=== PATIENT | female | born 1935 | race African-American/Black ===

== ENCOUNTER 2018-08-07 12:33 | Inpatient (IN) | payer OTHER ==
--- NOTE | 2018-08-07 12:42 | PDOC ---
History of Present Illness - General Chief Complaint: Pain, Acute Stated Complaint: RIGHT FOOT PAIN Time Seen by Provider: 08/07/18 12:39 History Source: Patient Exam Limitations: No Limitations - History of Present Illness Initial Comments: 08/07/18 14:16 Ms Pruett is an 83 yo F who presents to the ER due to foot pain Pt has a h/o DM and HTN with poor medication compliance The patient has been complaining of intermittent right lower extremity pain since June. She was noted to have increasing right foot pain on July 29. She was seen in an outside hospital where x-ray revealed a fracture of her great toe ??? (patient tells me she had no associated trauma) She was started on oxycodone, which she has been taking for pain. Her pain has persistently worsened. Beginning about 4 days ago, patient's pain was so significant that she was unable to bear weight on the right foot. She denies fevers, chills to me. She does admit to increased swelling of the foot. In order to treat her pain, she has been applying icy hot, with minimal relief. Patient denies trauma of any kind. She was seen today by her primary care physician in the city who told her that her foot was gangrenous. She was accompanied by her daughter to this visit, and daughter opted to bring her to this hospital here rather than have her treated at a local hospital. Patient tells me she's had no prior vascular issues in the past. She denies any chest pain, or history of atrial fibrillation. She denies abdominal pain. She denies headache. PMH: DM, HTN PSH: denies Meds: Losartan, janumet ALL: PCN Social: denies tobacco, drug use ROS: GENERAL/CONSTITUTIONAL: No: fever, chills, weakness, loss of appetite. HEAD, EYES, EARS, NOSE AND THROAT: No: change in vision, ear pain, discharge, sore throat, throat swelling. CARDIOVASCULAR: No: chest pain, lightheadedness, palpitations, syncope RESPIRATORY: No: cough, shortness of breath, wheezing, hemoptysis, stridor. GASTROINTESTINAL: No: nausea, vomiting, diarrhea, abdominal cramping, rectal bleeding, constipation. GENITOURINARY: No: dysuria, hematuria, frequency, urgency, flank pain. MUSCULOSKELETAL: Yes: FOOT PAIN No: back pain, neck pain, joint pain SKIN: No: lesions, pallor, rash or easy bruising. NEUROLOGIC: No: headache, vertigo, paresthesias, weakness ENDOCRINE: No: unexplained weight gain or loss HEMATOLOGIC/LYMPHATIC: No: anemia, easy bleeding, swelling nodes. PE: GENERAL: The patient is in no acute distress. HEAD: Normal with no signs of trauma. EYES: PERRLA, EOMI, sclera anicteric, conjunctiva clear. ENT: Ears normal, nares patent, oropharynx clear without exudates. Moist mucous membranes. NECK: Normal range of motion, supple LUNGS: Breath sounds equal, clear to auscultation bilaterally. No wheezes, and no crackles. HEART:Regular rate and rhythm, normal S1 and S2 without murmur, rub or gallop. ABDOMEN: Soft, nontender, normoactive bowel sounds. No guarding, no rebound. EXTREMITIES: Left: Normal range of motion, no edema. No clubbing or cyanosis. No erythema, or tenderness. Right: Femoral pulse 2+ bounding Popliteal pulse unable to palpate Swollen, cool lower leg and foot Dorsum of foot is Erythematous Plantar surface of foot:: Toes dusky - great toe, 4th and little toe Any palpation of this foot is exquisitely painful NEUROLOGICAL: Cranial nerves II through XII grossly intact. Normal speech. No focal neurological deficits. MUSCULOSKELETAL: no deformities SKIN: as above 08/07/18 19:04 08/07/18 21:49 08/07/18 21:52 08/08/18 19:40 Past History - Past Medical History Allergies/Adverse Reactions: Allergies Allergy/AdvReac Type Severity Reaction Status Date / Time Penicillins Allergy Verified 08/07/18 12:35 Home Medications: Ambulatory Orders Losartan Potassium [Cozaar -] 50 mg PO BID 08/07/18 Omeprazole Magnesium [Prilosec Otc] 20 mg PO DAILY 08/07/18 Oxybutynin Chloride [Oxybutynin Chloride ER] 5 mg PO DAILY 08/07/18 Sitagliptin Phos/Metformin HCl [Janumet 50-1,000 mg Tablet] 1 each PO BID COPD: No Diabetes: Yes HTN: Yes - Suicide/Smoking/Psychosocial Hx Smoking History: Never smoked Substance Use Type: None ED Treatment Course - LABORATORY CBC & Chemistry Diagram: 08/09/18 05:30 08/09/18 05:30 Medical Decision Making - Critical Care Time Total Critical Care Time (minutes): 90 Critical Care Statement: The care of this patient involved high complexity decision making to prevent further life threatening deterioration of the patient 's condition and/or to evaluate & treat vital organ system(s) failure or risk of failure. - Medical Decision Making Right limb ischemia (unclear time frame but it does not appear that this was sudden) Will do: Labs, including lactate US - eval for peripheral flow (doppler attempted, unable to hear flow) Pt BP elevated, likely due to poor medication compliance Will give Labetolol Will not hydrate (Give pt BP) Will place on network systems consultant 08/07/18 14:14 Laboratory Tests 08/07/18 08/07/18 08/07/18 13:15 13:15 13:15 WBC 6.8 Hgb 9.9 L Hct 30.7 L Plt Count 242 INR 1.25 H BUN 19 H Creatinine 0.9 Alkaline Phosphatase 48 Troponin I 08/07/18 13:15 WBC Hgb Hct Plt Count INR BUN Creatinine Alkaline Phosphatase Troponin I < 0.03 08/07/18 14:06 EKG: SR rate of 71 bpm, axis nml, intervals nml, no st elevation or depression, t waves upright US: no flow past popliteal CTA ordered CTA ordered when CT scan was up and running I was told that a CTA of the extremities can not be performed here Consult to Dr Cates Admission to hospitalist Heparin started 08/07/18 14:30 keyoniareji sent, brown stools 08/07/18 15:30 I have contacted the nursing production assembly supervisor because there are no Tele beds Pt can not get her CTA here I have requested that this patient be transported to [facility] for her CTA and wait there for a bed This is not an option unless the CTA will environmental change analyst (per ED director) I have contacted Dr Cates to see if he believes this will environmental change analyst No response This patient can not be transferred to outside facility as we have the services available in our facility 08/07/18 15:31 Laboratory Tests 08/07/18 13:06 Lactic Acid 0.8 Pt approved for ICU bed Case reviewed with ICU resident 08/07/18 19:02 Pt BP now back to >200/100 Labetolol ordered Clinical Impression: limb ischemia, initial presentation *DC/Admit/Observation/Transfer Diagnosis at time of Disposition: Lower limb ischemia - Discharge Dispostion Condition at time of disposition: Fair Decision to Admit order: Yes - Referrals - Patient Instructions - Post Discharge Activity
[2018-08-07] MEDS ORDERED: ACETAMINOPHEN 1000 MG/100 ML VIAL (NON FORMULARY) IVPB ONE (12:58)
[2018-08-07] MEDS ORDERED: LABETALOL HCL 5 MG/1 ML (100MG/20 ML VIAL) IVPUSH ONE (12:58)
[2018-08-07] MEDS ORDERED: ACETAMINOPHEN INJECTION 100 ML IVPB ONE (13:17)
[2018-08-07 13:55] LABS: INR 1.25 (0.82-1.09); PROTHROMBIN TIME (PATIENT) 13.9 SEC (10.2-13.0)
[2018-08-07 14:00] LABS: BASO % 0.2 % (0-2.0); EOS % 0.3 % (0-4.5); HEMATOCRIT 30.7 % (32.4-45.2); HEMOGLOBIN 9.9 GM/dl (10.7-15.3); LYMPH % 12.2 % (8-40); MCH 27.8 pg (25.7-33.7); MCHC 32.4 g/dl (32.0-36.0); MEAN CELL VOLUME 85.9 fl (80-96); MEAN PLT VOLUME 8.8 fl (7.5-11.1); MONO % 12.2 % (3.8-10.2); NEUT % 75.1 % (42.8-82.8); PLATELET COUNT 242 K/MM3 (134-434); RBC 3.58 M/mm3 (3.60-5.2); RDW 14.7 % (11.6-15.6); WHITE BLOOD COUNT 6.8 K/mm3 (4.0-10.8)
[2018-08-07 14:02] LABS: ALBUMIN 2.9 g/dl (3.5-5.0); ALK PHOS 48 U/L (32-92); ANION GAP 5 MMOL/L (8-16); BILIRUBIN,TOTAL 0.3 mg/dl (0.2-1.0); BLOOD UREA NITROGEN 19 mg/dl (7-18); CALCIUM 8.6 mg/dl (8.4-10.2); CHLORIDE 100 mmol/L (98-107); CO2 29 mmol/L (22-28); CREATININE 0.9 mg/dl (0.6-1.3); GLUCOSE,RANDOM 211 mg/dl (74-106); POTASSIUM 4.3 mmol/L (3.5-5.1); SGOT/AST 20 U/L (10-42); SGPT/ALT 15 U/L (10-40); SODIUM 134 mmol/L (136-145); TOT PROT 6.6 g/dl (6.4-8.3)
[2018-08-07] MEDS ORDERED: LABETALOL HCL 5 MG/1 ML (100MG/20 ML VIAL) ONE (14:10)
[2018-08-07 14:51] LABS: URINE APPEARANCE Clear; URINE BILIRUBIN 1+ (NEGATIVE); URINE COLOR Amber; URINE GLUCOSE (UA) Trace (NEGATIVE); URINE KETONE Trace (NEGATIVE); URINE LEUK ESTERASE Negative (NEGATIVE); URINE NITRITE Negative (NEGATIVE); URINE PROTEIN 1+ (NEGATIVE)
[2018-08-07] MEDS ORDERED: HEPARIN INFUSION - 25,000 UNITS/500 ML INFUS.BAG IVPB ONE (15:07)
[2018-08-07 15:40] LABS: URINE RBC 0-2 /hpf (0-3)
[2018-08-07 15:41] LABS: EPI CELLS 4+ /HPF
[2018-08-07] MEDS: HEPARIN - 25,000 UNIT in SODIUM CHLORIDE 495 ML IV SCH (15:41)
[2018-08-07] MEDS ORDERED: LABETALOL HCL 100 MG TABLET (FP) PO ONE (18:50)
[2018-08-07] MEDS ORDERED: LABETALOL HCL 200 MG TABLET (FP) ONE (18:59)
[2018-08-07 20:55] LABS: HEMATOCRIT 29.3 % (32.4-45.2); HEMOGLOBIN 9.9 GM/dL (10.7-15.3); MCH 28.5 pg (25.7-33.7); MCHC 33.8 g/dl (32.0-36.0); MEAN CELL VOLUME 84.2 fl (80-96); MEAN PLT VOLUME 8.4 fl (7.5-11.1); PLATELET COUNT 247 K/MM3 (134-434); RBC 3.48 M/mm3 (3.60-5.2); RDW 15.6 % (11.6-15.6)
[2018-08-07] MEDS ORDERED: LOSARTAN POTASSIUM 50 MG TABLET (FP) PO ONE (21:21)
[2018-08-07] MEDS ORDERED: hydrALAZINE HCL 10 MG TABLET PO ONE (21:34)
[2018-08-07] MEDS ORDERED: HEPARIN NA (PORCINE) 5,000 UNITS/ML 1ML VIAL IVPUSH PRN ×2 (21:48)
--- NOTE | 2018-08-07 21:51 | PN ---
Teaching Attending Note Name of Resident: Giana Champion ATTENDING PHYSICIAN STATEMENT I saw and evaluated the patient. I reviewed the resident's note and discussed the case with the resident. I agree with the resident's findings and plan as documented. SUBJECTIVE: Patient is an 83 [place] old woman with PMH of NIDDM, HTN and penicillin allergy who presented to [place] ER due to right foot pain. Transferred for CTA and vascular surgery evaluation due to suspicion of ichemic limb. The patient has been complaining of intermittent right lower extremity pain since June. Pain is worse with ambulation. Patient and family believe her symptoms started after her [employer] cut her toe nails "too short". She was started on oxycodone which she has been taking for pain. Her pain is persistently worsened. Beginning about 4 days ago, patient's pain was so significant that she was unable to bear weight on the right foot. She does admit to increased swelling of the right foot and has been applying icy hot, with minimal relief. OBJECTIVE: Alert Vital Signs Period Temp Pulse Resp BP Sys/Reyes Pulse Ox Last 24 Hr 98.3 F-99.3 F 60-79 17-19 122-231/54-91 96-100 HEENT: No Jaundice, eye redness or discharge, PERRLA, EOMI. Normocephalic, atraumatic. External ears are normal and hearing is grossly intact. No nasal discharge. Neck: Supple, nontender. No palpable adenopathy or thyromegaly. No JVD Chest: Good effort. Clear to auscultation and percussion. Heart: Regular. No S3, rub or murmur Abdomen: Not distended, soft, nontender and no HSM. No rebound or guarding. Normoactive bowel sounds. Ext: Right foot edema with diminished pulses; cool to touch, tender. Discolored dusky 1st and 2nd toes; dystrophic toe nails; able to wiggle toes. Skin: Warm and dry. No petechiae, rash or ecchymosis. Neuro: Alert. Oriented x3. CN 2-12 grossly intact. Sensation grossly intact in all four extremities and DTR are symmetric. Current Medications Generic Name Dose Route Start Last Admin Trade Name Freq PRN Reason Stop Dose Admin Heparin Sodium (Porcine) 1,000 unit 08/07/18 21:48 Heparin - IVPUSH PRN PRN Heparin Heparin Sodium (Porcine) 5,000 unit 08/07/18 21:48 Heparin - IVPUSH PRN PRN Heparin Heparin Sodium (Porcine) 25, 500 mls @ 20 mls/hr 08/07/18 14:15 08/07/18 15: 41 000 unit/ Sodium Chloride IV 1,000 unit/hr TITR FLYNN 20 mls/hr Administration Protocol 1,000 UNIT/HR Home Medications Medication Instructions Recorded Losartan Potassium [Cozaar -] 50 mg PO BID 08/07/18 Omeprazole Magnesium [Prilosec Otc] 20 mg PO DAILY 08/07/18 Oxybutynin Chloride [Oxybutynin 5 mg PO DAILY 08/07/18 Chloride ER] Sitagliptin Phos/Metformin HCl 1 each PO BID 08/07/18 [Janumet 50-1,000 mg Tablet] Abnormal Lab Results 08/07/18 08/07/18 08/07/18 13:15 13:15 13:15 RBC 3.58 L Hgb 9.9 L Hct 30.7 L Monocytes % 12.2 H PT with INR 13.9 H INR 1.25 H PTT (Actin FS) Sodium 134 L Carbon Dioxide 29 H Anion Gap 5 L BUN 19 H Random Glucose 211 H Calcium Albumin 2.9 L Urine Protein Urine Bilirubin Urine Urobilinogen 08/07/18 08/07/18 08/07/18 13:15 14:06 20:00 RBC 3.48 L Hgb 9.9 L Hct 29.3 L Monocytes % PT with INR INR PTT (Actin FS) 22.4 L Sodium Carbon Dioxide Anion Gap BUN Random Glucose Calcium Albumin Urine Protein 1+ H Urine Bilirubin 1+ H Urine Urobilinogen 2.0 H 08/07/18 08/07/18 20:00 20:00 RBC Hgb Hct Monocytes % PT with INR INR PTT (Actin FS) 40.5 H Sodium Carbon Dioxide Anion Gap 7 L BUN Random Glucose 176 H Calcium 8.2 L Albumin 2.6 L Urine Protein Urine Bilirubin Urine Urobilinogen ASSESSMENT AND PLAN: 1. Ischemic right leg - Both ultrasound and physical examination suggest impaired blood flow. Patient has been started on IV heparin drip pending CTA and Vascular surgery is being consulted. Oral antihypertensive medications have been restarted to improve BP control. 2. Hypoalbuminemia - Possibly due to combined effects of proteinuria, malnutrition and inflammation associated with comorbid chronic conditions. May have early diabetic nephropathy. Will ensure adequate dietary protein intake and also consult maintenance person. 3. DM - Will hold her home diabetes drugs and implement sliding scale insulin regimen. Check HbA1c. Provide comprehensive diabetes care with patient teaching and counseling about the importance of euglycemia, eye care and foot care. 4. Anemia - Etiology unclear. Needs basic anemia work up including serial stool guaiacs, reticulocyte count and iron studies. 5. DVT prophylaxis - On IV Heparin drip. 6. Advance directives - Full code
[2018-08-07 22:07] LABS: ALBUMIN 2.6 g/dl (3.4-5.0); ALK PHOS 54 U/L (45-117); ANION GAP 7 MMOL/L (8-16); BILIRUBIN,TOTAL 0.2 mg/dL (0.2-1); BLOOD UREA NITROGEN 18 mg/dL (7-18); CALCIUM 8.2 mg/dL (8.5-10.1); CHLORIDE 100 mmol/L (98-107); CO2 31 mmol/L (21-32); CREATININE 0.8 mg/dL (0.55-1.3); GLUCOSE,RANDOM 176 mg/dL (74-106); POTASSIUM 3.9 mmol/L (3.5-5.1); SGOT/AST 17 U/L (15-37); SGPT/ALT 17 U/L (13-61); SODIUM 139 mmol/L (136-145); TOT PROT 6.5 g/dl (6.4-8.2)
[2018-08-07] MEDS ORDERED: hydrALAZINE HCL 20 MG/ML VIAL IVPUSH ONE (23:26)
[2018-08-07] MEDS ORDERED: amLODIPine BESYLATE 2.5 MG TABLET (FP) PO ONE (23:27)
--- NOTE | 2018-08-07 23:28 | HP ---
CHIEF COMPLAINT: r foot pain PCP: Dr. Alamo, [facility] HISTORY OF PRESENT ILLNESS: Patient is a 83 y/o female with a history of DM and HTN who presents for right foot pain. She described the pain as a burning, its starts in her foot and moves up to her knee. She rates it as 8/10. It is worse with touch and when she is walking. She has not found that anything makes it better, she has been trying to use icy hot but with no relief. The pain has been worsening for the last three weeks. Patient denies any recent trauma On july 23 patient followed up with her manager market development who cut her nails. Patient believes one of the nails was cut too short and that is when the pain began. On July 29 they went to the ED at [facility] in [place] for the pain. She had an Xray done and was told she had a fracture. She was given oxycodone, but only took one pill. Earlier today she saw her PCP who stated she needed to come to the Emergency room. Patient presented to [facility]. An ultrasound showed an extensive atherosclerotic plaque and abnormal flow in the right extremity. Determine patient needs a CTA so she was transferred to [place]. Patient reports he felt feverish over the weekend, but it resolves. She currently denies chest pain , SOB, nausea, headache, or blurry vision. 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 Patient is non compliant with her home medications. She is able to ambulate at home with a cane. ER course was notable for: (1) 10 mg Iv push labetalol (2) 100 mg po labetalol (3) Recent Travel: returned from [facility] "months" ago PAST MEDICAL HISTORY: DM, HTN PAST SURGICAL HISTORY: tubal ligation at age 30 2/2 to ectopic Social History: Smoking: denies Alcohol: denies Drugs: denies Family History: Allergies Penicillins Allergy (Verified 08/07/18 12:35)- rxn "shock" HOME MEDICATIONS: Home Medications Medication Instructions Recorded Losartan Potassium [Cozaar -] 50 mg PO BID 08/07/18 Omeprazole Magnesium [Prilosec Otc] 20 mg PO DAILY 08/07/18 Oxybutynin Chloride [Oxybutynin 5 mg PO DAILY 08/07/18 Chloride ER] Sitagliptin Phos/Metformin HCl 1 each PO BID 08/07/18 [Janumet 50-1,000 mg Tablet] REVIEW OF SYSTEMS CONSTITUTIONAL: Absent: fever, chills, diaphoresis, generalized weakness, malaise, loss of appetite, weight change HEENT: Absent: rhinorrhea, nasal congestion, throat pain, throat swelling, difficulty swallowing, mouth swelling, ear pain, eye pain, visual changes CARDIOVASCULAR: Absent: chest pain, syncope, palpitations, irregular heart rate, lightheadedness , peripheral edema RESPIRATORY: Absent: cough, shortness of breath, dyspnea with exertion, orthopnea, wheezing, stridor, hemoptysis GASTROINTESTINAL: Absent: abdominal pain, abdominal distension, nausea, vomiting, diarrhea, constipation, melena, hematochezia GENITOURINARY: Absent: dysuria, frequency, urgency, hesitancy, hematuria, flank pain, genital pain MUSCULOSKELETAL: R lower extremity burning pain Absent: myalgia, arthralgia, joint swelling, back pain, neck pain SKIN: Absent: rash, itching, pallor HEMATOLOGIC/IMMUNOLOGIC: Absent: easy bleeding, easy bruising, lymphadenopathy, frequent infections ENDOCRINE: Absent: unexplained weight gain, unexplained weight loss, heat intolerance, cold intolerance NEUROLOGIC: Absent: headache, focal weakness or paresthesias, dizziness, unsteady gait, seizure, mental status changes, bladder or bowel incontinence PSYCHIATRIC: Absent: anxiety, depression, suicidal or homicidal ideation, hallucinations. PHYSICAL EXAMINATION Vital Signs - 24 hr 08/07/18 08/07/18 08/07/18 12:38 14:20 14:45 Temperature 99.3 F Pulse Rate 79 Pulse Rate [ 61 61 Apical] Respiratory 17 18 Rate Blood Pressure 231/89 H Blood Pressure 206/81 H 218/54 H [Left Arm] O2 Sat by Pulse 96 100 Oximetry (%) 08/07/18 08/07/18 08/07/18 15:00 15:42 17:01 Temperature Pulse Rate Pulse Rate [ 66 63 61 Apical] Respiratory 18 19 Rate Blood Pressure Blood Pressure 187/73 H 184/83 H 184/76 H [Left Arm] O2 Sat by Pulse 99 100 Oximetry (%) 08/07/18 08/07/18 08/07/18 18:21 19:02 20:51 Temperature 98.3 F 98.3 F Pulse Rate 63 Pulse Rate [ 61 60 Apical] Respiratory 17 18 18 Rate Blood Pressure 122/78 Blood Pressure 180/79 H 197/91 H [Left Arm] O2 Sat by Pulse 97 98 98 Oximetry (%) 08/07/18 21:07 Temperature 98.3 F Pulse Rate 63 Pulse Rate [ Apical] Respiratory 18 Rate Blood Pressure 122/78 Blood Pressure [Left Arm] O2 Sat by Pulse 98 Oximetry (%) GENERAL: Awake, alert, and fully oriented, in no acute distress. HEAD: Normal with no signs of trauma. EYES: Pupils equal, round and reactive to light, extraocular movements intact, fundoscopic exam: no papilledema noted, difficult exam EARS, NOSE, THROAT: Moist mucous membranes. LUNGS: Breath sounds equal, clear to auscultation bilaterally. No wheezes, and no crackles. No accessory muscle use. HEART: Regular rate and rhythm, normal S1 and S2 without murmur, rub or gallop. ABDOMEN: Soft, nontender, not distended, normoactive bowel sounds, no guarding, no rebound, no masses. No hepatomegaly or splenomegaly. MUSCULOSKELETAL: Normal range of motion at all joints. No bony deformities or tenderness. No CVA tenderness. LOWER EXTREMITIES: R foot only PT pulse heard by doppler, unable to hear DP pulse, slight dusky color to tip of toes specifically R big toe, R leg on pitting edema up o ankle, R leg slightly colder then left leg, ROM intact, tender to all palpation, sensation intact bilaterally, blue green color over toes ( icy hot cream) NEUROLOGICAL: Cranial nerves II-XII intact. Normal speech. PSYCHIATRIC: Cooperative. Good eye contact. Appropriate mood and affect. SKIN: Warm, dry, normal turgor, no rashes or lesions noted, normal capillary refill. Laboratory Results - last 24 hr CBC,CMP WBC 6.0 K/mm3 (4.0-10.0) 08/07/18 20:00 RBC 3.48 M/mm3 (3.60-5.2) L 08/07/18 20:00 Hgb 9.9 GM/dL (10.7-15.3) L 08/07/18 20:00 Hct 29.3 % (32.4-45.2) L 08/07/18 20:00 MCV 84.2 fl (80-96) 08/07/18 20:00 MCH 28.5 pg (25.7-33.7) 08/07/18 20:00 MCHC 33.8 g/dl (32.0-36.0) 08/07/18 20:00 RDW 15.6 % (11.6-15.6) 08/07/18 20:00 Plt Count 247 K/MM3 (134-434) 08/07/18 20:00 MPV 8.4 fl (7.5-11.1) 08/07/18 20:00 Absolute Neuts (auto) 5.2 K/mm3 08/07/18 13:15 Neutrophils % 75.1 % (42.8-82.8) 08/07/18 13:15 Lymphocytes % 12.2 % (8-40) 08/07/18 13:15 Monocytes % 12.2 % (3.8-10.2) H 08/07/18 13:15 Eosinophils % 0.3 % (0-4.5) 08/07/18 13:15 Basophils % 0.2 % (0-2.0) 08/07/18 13:15 Sodium 139 mmol/L (136-145) 08/07/18 20:00 Potassium 3.9 mmol/L (3.5-5.1) 08/07/18 20:00 Chloride 100 mmol/L (98-107) 08/07/18 20:00 Carbon Dioxide 31 mmol/L (21-32) 08/07/18 20:00 Anion Gap 7 MMOL/L (8-16) L 08/07/18 20:00 BUN 18 mg/dL (7-18) 08/07/18 20:00 Creatinine 0.8 mg/dL (0.55-1.3) 08/07/18 20:00 Creat Clearance w eGFR > 60 (>60) 08/07/18 20:00 Random Glucose 176 mg/dL (74-106) H 08/07/18 20:00 Lactic Acid 0.8 mmol/L (0.4-2.0) 08/07/18 13:06 Calcium 8.2 mg/dL (8.5-10.1) L 08/07/18 20:00 Total Bilirubin 0.2 mg/dL (0.2-1) 08/07/18 20:00 AST 17 U/L (15-37) 08/07/18 20:00 ALT 17 U/L (13-61) 08/07/18 20:00 Alkaline Phosphatase 54 U/L (45-117) 08/07/18 20:00 Creatine Kinase 87 IU/L (26-192) 08/07/18 20:00 Troponin I < 0.02 ng/ml (0.00-0.05) 08/07/18 20:00 Total Protein 6.5 g/dl (6.4-8.2) 08/07/18 20:00 Albumin 2.6 g/dl (3.4-5.0) L 08/07/18 20:00 Urine Test Results Urine Color Rachelle 08/07/18 14:06 Urine Appearance Clear 08/07/18 14:06 Urine pH 6.0 (4.5-8) 08/07/18 14:06 Ur Specific [place] 1.015 (1.010-1.035) 08/07/18 14:06 Urine Protein 1+ (NEGATIVE) H 08/07/18 14:06 Urine Glucose (UA) Trace (NEGATIVE) 08/07/18 14:06 Urine Ketones Trace (NEGATIVE) 08/07/18 14:06 Urine Blood Negative (NEGATIVE) 08/07/18 14:06 Urine Nitrite Negative (NEGATIVE) 08/07/18 14:06 Urine Bilirubin 1+ (NEGATIVE) H 08/07/18 14:06 Ur Leukocyte Esterase Negative (NEGATIVE) 08/07/18 14:06 Urine RBC 0-2 /hpf (0-3) 08/07/18 14:06 Urine WBC 2-5 (0-5) 08/07/18 14:06 Ur Epithelial Cells 4+ /HPF 08/07/18 14:06 ASSESSMENT/PLAN: Patient is a 83 y/o female with a history of DM and HTN who presents for right foot pain. #limb ischemia - US: extensive atherosclerotic disease with abnormal flow throught RLE, no flow noted within distal popliteal and posterior tibial arteries - f/u CTA of aorta and B/L run off - discussed case with Dr. Cates, he will f/u CTA in morning and possible surgery at that time - patient on heparin drip - morphine 1 mg q3h for pain control - foot xray: bunion at first MTP joint, arthritic changes, no fracture - NPO after midnight - MITCHELL: .9% risk of cardiovascular event #HTN urgency likely 2/2 to noncomplaince - patient received 10 mg IV push and 100 mg po at Jim - resarted home dose losartan BID - discussed use of hydralazine or clonidine if HTN continues #hyponatremia, 2/2 to stress vs mild hyperglycemia - monitor, currently off fluids - asymptomatic #DM - BGM achs, SS as needed - f/u A1C, lipid panel #DVT ppx - heparin drip Code status: FULL CODE, discussed with patients daughter to discuss in the morning with patient Patients daughters phone number: Carole yañez [phone] home [phone] Meagan Zen [phone] Roberto Mayer [phone] pharmacy not open, medications need reconciliation: [facility] Visit type - Emergency Visit Emergency Visit: No - New Patient This patient is new to me today: Yes Date on this admission: 08/08/18 - Critical Care Critical Care patient: Yes Total Critical Care Time (in minutes): 32 Critical Care Statement: The care of this patient involved high complexity decision making to prevent further life threatening deterioration of the patient 's condition and/or to evaluate & treat vital organ system(s) failure or risk of failure.
[2018-08-07] MEDS ORDERED: hydrALAZINE HCL 25 MG TABLET (FP) PO ONE (23:49)
--- NOTE | 2018-08-07 23:57 | CONSULT ---
Consultation: REQUESTING PROVIDER: Dr. Flores CONSULT REQUEST: We have been asked to medically evaluate this patient for Acute Limb Ischemia . HISTORY OF PRESENT ILLNESS: Patient is an 83 year old female with PMHx of NIDDMII, HTN, GERD, overactive bladder who presented to [facility] after being sent from her PCP complaining of right foot pain described as a burning sensation that started over three weeks ago and progressively worsened in the last couple of days. The pain initially started in her right foot and toes then ascended up to the knee's in the last couple of days. The pain is worse when she walks with no alleviating factors rated as an 8-9/10. Patient does report associated symptoms of subjective fevers and chills, that resolved today. Patient denies any trauma, injury, or recent falls. Patient also reports having her toe nails cut on 07/23 and since then has had right foot pain for which she went to [facility] ED and had an X-ray of the foot done, which revealed a fracture. Patient was discharged from the ED and was given a prescription of Oxycodone. The right foot pain worsened and noticed in the last couple of days the skin color changing, which prompted her to see her PCP. When she saw her PCP this morning, patient was advised and urged to go to the ED, which prompted this hospital visit. In the ED U/S revealed extensive atherosclerotic plaque and abnormal flow in the right extremity. Patient was also found to have HTN urgency with SBP >200 and was given 10 mg IV push and 100 mg po of labetolol. Patient then transferred to here to [facility] for CTA w/runoff. Otherwise, patient denies any nausea, vomiting, abdominal pain, chest pain, palpitations, shortness of breath, headaches, dysuria, hematuria, acute vision changes, diarrhea, constipation. PMHx: NIDDMII, HTN, GERD, overactive bladder PSHx: tubal ligation at age 28 2/2 to ectopic Social Hx: Smoking: denies Alcohol: denies Drugs: denies Allergies: Penicillin. Angioedema REVIEW OF SYSTEMS: CONSTITUTIONAL: Absent: fever, chills, diaphoresis, generalized weakness, malaise, loss of appetite, weight change HEENT: Absent: rhinorrhea, nasal congestion, throat pain, throat swelling, difficulty swallowing, mouth swelling, ear pain, eye pain, visual changes CARDIOVASCULAR: Absent: chest pain, syncope, palpitations, irregular heart rate, lightheadedness , peripheral edema RESPIRATORY: Absent: cough, shortness of breath, dyspnea with exertion, orthopnea, wheezing, stridor, hemoptysis GASTROINTESTINAL: Absent: abdominal pain, abdominal distension, nausea, vomiting, diarrhea, constipation, melena, hematochezia GENITOURINARY: Absent: dysuria, frequency, urgency, hesitancy, hematuria, flank pain, genital pain MUSCULOSKELETAL: Right Leg and foot pain Absent: myalgia, arthralgia, joint swelling, back pain, neck pain SKIN: Absent: rash, itching, pallor HEMATOLOGIC/IMMUNOLOGIC: Absent: easy bleeding, easy bruising, lymphadenopathy, frequent infections ENDOCRINE: Absent: unexplained weight gain, unexplained weight loss, heat intolerance, cold intolerance NEUROLOGIC: Absent: headache, focal weakness or paresthesias, dizziness, unsteady gait, seizure, mental status changes, bladder or bowel incontinence PSYCHIATRIC: Absent: anxiety, depression, suicidal or homicidal ideation, hallucinations. PHYSICAL EXAMINATION Vital Signs - 24 hr 08/07/18 08/07/18 08/07/18 12:38 14:20 14:45 Temperature 99.3 F Pulse Rate 79 Pulse Rate [ 61 61 Apical] Respiratory 17 18 Rate Blood Pressure 231/89 H Blood Pressure 206/81 H 218/54 H [Left Arm] O2 Sat by Pulse 96 100 Oximetry (%) 08/07/18 08/07/18 08/07/18 15:00 15:42 17:01 Temperature Pulse Rate Pulse Rate [ 66 63 61 Apical] Respiratory 18 19 Rate Blood Pressure Blood Pressure 187/73 H 184/83 H 184/76 H [Left Arm] O2 Sat by Pulse 99 100 Oximetry (%) 08/07/18 08/07/18 08/07/18 18:21 19:02 20:51 Temperature 98.3 F 98.3 F Pulse Rate 63 Pulse Rate [ 61 60 Apical] Respiratory 17 18 18 Rate Blood Pressure 122/78 Blood Pressure 180/79 H 197/91 H [Left Arm] O2 Sat by Pulse 97 98 98 Oximetry (%) 08/07/18 21:07 Temperature 98.3 F Pulse Rate 63 Pulse Rate [ Apical] Respiratory 18 Rate Blood Pressure 122/78 Blood Pressure [Left Arm] O2 Sat by Pulse 98 Oximetry (%) GENERAL: Awake, alert, and fully oriented, in no acute distress. HEAD: Normal with no signs of trauma. EYES: Pupils equal, round and reactive to light, extraocular movements intact, sclera anicteric, conjunctiva clear. No lid lag. EARS, NOSE, THROAT: Oropharynx clear without exudates. Moist mucous membranes. NECK: (-) lymphadenopathy, JVD, or masses. LUNGS: Breath sounds equal, clear to auscultation bilaterally. No wheezes, and no crackles. No accessory muscle use. HEART: Bradycardic with regular rhythm, normal S1 and S2 without murmur, rub or gallop. ABDOMEN: Soft, nontender, not distended, normoactive bowel sounds, no guarding, no rebound, no masses. No hepatomegaly or splenomegaly. MUSCULOSKELETAL: Normal range of motion at all joints. No bony deformities or tenderness. No CVA tenderness. UPPER EXTREMITIES: No peripheral edema. LOWER EXTREMITIES: Unable to palpate or hear DP pulse on doppler with dusky color right toes. Cool to touch and tenderness upon palpation of right foot. (+ ) 2+ pitting edema of right LE up to the knees. sensations intact. PT pulses heard on doppler of right foot NEUROLOGICAL: Cranial nerves II-XII intact. Normal speech. PSYCHIATRIC: Cooperative. Good eye contact. Appropriate mood and affect. Laboratory Results - last 24 hr 08/07/18 08/07/18 08/07/18 20:00 20:00 20:00 WBC 6.0 RBC 3.48 L Hgb 9.9 L Hct 29.3 L MCV 84.2 MCH 28.5 MCHC 33.8 RDW 15.6 Plt Count 247 MPV 8.4 Absolute Neuts (auto) Neutrophils % Lymphocytes % Monocytes % Eosinophils % Basophils % PT with INR INR PTT (Actin FS) Sodium 139 Potassium 3.9 Chloride 100 Carbon Dioxide 31 Anion Gap 7 L BUN 18 Creatinine 0.8 Creat Clearance w eGFR > 60 Random Glucose 176 H Lactic Acid Calcium 8.2 L Total Bilirubin 0.2 AST 17 ALT 17 Alkaline Phosphatase 54 Creatine Kinase 87 Troponin I < 0.02 Total Protein 6.5 Albumin 2.6 L Urine Color Urine Appearance Urine pH Ur Specific [place] Urine Protein Urine Glucose (UA) Urine Ketones Urine Blood Urine Nitrite Urine Bilirubin Urine Urobilinogen Ur Leukocyte Esterase Urine RBC Urine WBC Ur Epithelial Cells Stool Occult Blood Blood Type A POSITIVE Antibody Screen Active Medications Generic Name Dose Route Start Last Admin Trade Name Freq PRN Reason Stop Dose Admin Chlorhexidine Gluconate 1 applic 08/08/18 22:00 Hibiclens For Decolonization - TP HS FLYNN Heparin Sodium (Porcine) 1,000 unit 08/07/18 21:48 08/07/18 22:00 Heparin - IVPUSH 1,000 unit PRN PRN Administration Heparin Heparin Sodium (Porcine) 5,000 unit 08/07/18 21:48 Heparin - IVPUSH PRN PRN Heparin Heparin Sodium (Porcine) 25, 500 mls @ 20 mls/hr 08/07/18 14:15 08/07/18 23: 23 000 unit/ Sodium Chloride IV 1,150 unit/hr TITR FLYNN 23 mls/hr Titration Protocol 1,000 UNIT/HR Insulin Aspart 1 vial 08/08/18 07:00 Novolog Vial Sliding Scale - SQ ACHS FLYNN Protocol Morphine Sulfate 1 mg 08/07/18 22:25 Morphine Sulfate IVPUSH Q3H PRN PAIN LEVEL 7 - 10 Mupirocin 1 applic 08/08/18 10:00 Bactroban Ointment (For Decolonization) - NS 08/13/18 09:59 BID [facility] ASSESSMENT/PLAN: Patient is an 83 year old female who presented for right foot pain and was found to have acute limb ischemia of the RLE. Patient started on Heparin drip and admitted to ICU for further monitoring and management. VASCULAR #Acute Limb Ischemia -Duplex revealed extensive atherosclerotic disease with abnormal flow throught RLE, no flow noted within distal popliteal and posterior tibial arteries -CTA of aorta w/ runoff ordered with pending final read -Patient started on Heparin drip -Pain control with Morphine 1mg Q3H PRN -Possible surgery in the morning -NPO after midnight -Lipid panel and A1C ordered CARDIOLOGY #HTN Urgency -Likely secondary to noncompliance with medication -Patient received 10mg IVP and 100mg PO of Labetolol in the ED -Resumed home dose Losartan 50mg PO once medications are reconciled by primary -May give Hydralazine PRN or Amlodipine PRN -Continue to monitor BP ENDOCRINOLOGY #NIDDMII -A1C ordered -BGM -ISS HEMATOLOGY #Normocytic Anemia -Unclear etiology, possibly due to inflammatory state -Will need iron studies -Stool Guaic negative -Continue to monitor CBC GASTROENTEROLOGY #GERD -Continue home medication Prilosec once medications confirmed UROLOGY #Overactive bladder -Continue Oxybutynin 5mg po once medications are confirmed NEPHROLOGY #Hypoalbuminemia -Likely multifactorial as patient has 1+ Proteins in urine and now in acute inflammatory state with noncompliance to diabetic and anti-htn medications. -Continue to monitor -Nutrition/Supervisor [employer] consult, as per promary team #Mild Hyponatremia -Asymptomatic -Likely secondary to inflammatory state and decrease PO -Patient initially 134 but repeat is 139. -Will continue to monitor BMP F/E/N -On the fluids -Mild hyponatremia. Asymptomatic. Continue to monitor -NPO after midnight Prophylaxis -Heparin drip for DVT -Prilosec once medication confirmed for GI Disposition -Full code -ICU monitoring and possible surgery in the morning Dispo: We will continue to follow the patient. Thank you for this consultative opportunity. Laura King [id number] Visit type - Emergency Visit Emergency Visit: Yes ED Registration Date: 08/07/18 Care time: The patient presented to the Emergency Department on the above date and was hospitalized for further evaluation of their emergent condition. - New Patient This patient is new to me today: Yes Date on this admission: 08/07/18 - Critical Care Critical Care patient: Yes Total Critical Care Time (in minutes): 45 Critical Care Statement: The care of this patient involved high complexity decision making to prevent further life threatening deterioration of the patient 's condition and/or to evaluate & treat vital organ system(s) failure or risk of failure.
[2018-08-08] MEDS ORDERED: amLODIPine BESYLATE 2.5 MG TABLET (FP) PO ONE (04:13)
[2018-08-08] MEDS ORDERED: hydrALAZINE HCL 25 MG TABLET (FP) PO ONE (04:13)
[2018-08-08] MEDS: INSULIN SLIDING SCALE (NOVOLOG) 1 VIAL SQ SCH ×4 (06:15→22:00)
[2018-08-08 06:19] LABS: BASO % 0.3 % (0-2.0); EOS % 0.9 % (0-4.5); HEMATOCRIT 28.6 % (32.4-45.2); HEMOGLOBIN 9.3 GM/dL (10.7-15.3); MCH 27.3 pg (25.7-33.7); MCHC 32.6 g/dl (32.0-36.0); MEAN CELL VOLUME 83.8 fl (80-96); MEAN PLT VOLUME 8.6 fl (7.5-11.1); MONO % 10.2 % (3.8-10.2); NEUT % 65.6 % (42.8-82.8); PLATELET COUNT 227 K/MM3 (134-434); RBC 3.41 M/mm3 (3.60-5.2); RDW 15.3 % (11.6-15.6); WHITE BLOOD COUNT 6.1 K/mm3 (4.0-10.0)
[2018-08-08 06:41] LABS: INR 1.2 (0.83-1.09); PROTHROMBIN TIME (PATIENT) 14.2 SEC (9.7-13.0)
[2018-08-08 06:44] LABS: ACTIVATED PTT 59.6 SECONDS (25.2-36.5)
[2018-08-08 08:14] LABS: ALBUMIN 2.4 g/dl (3.4-5.0); ALK PHOS 50 U/L (45-117); ANION GAP 8 MMOL/L (8-16); BILIRUBIN,TOTAL 0.3 mg/dL (0.2-1); BLOOD UREA NITROGEN 13 mg/dL (7-18); CALCIUM 8.3 mg/dL (8.5-10.1); CHLORIDE 102 mmol/L (98-107); CO2 28 mmol/L (21-32); CREATININE 0.7 mg/dL (0.55-1.3); GLUCOSE,RANDOM 182 mg/dL (74-106); POTASSIUM 3.9 mmol/L (3.5-5.1); SGOT/AST 15 U/L (15-37); SGPT/ALT 14 U/L (13-61); SODIUM 138 mmol/L (136-145); TOT PROT 6.2 g/dl (6.4-8.2)
[2018-08-08 08:15] LABS: CHOLESTEROL 98 mg/dL (50-200); HDL CHOLESTEROL 35 mg/dL (40-60); TRIGLYCERIDES 70 mg/dL (0-150)
--- NOTE | 2018-08-08 09:13 | CONSULT ---
- Consultation REQUESTING PROVIDER: CONSULT REQUEST: We have been asked to surgically evaluate this patient for ( rle ischemia). PCP:Guanako Carrillo MD HISTORY OF PRESENT ILLNESS: 83 y/o F w/ PMHx IDDM and HTN admitted overnight for severe R foot pain with concern for ischemia. Per pt, she first began having pain in her right toes radiating upto her thigh shortly after seeing her [employer] Processing [employer] on July 23. 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 Pt reports her pain increased and her daughters took her to [facility] ER (July 29). At that time, pts daughter ( Meagan) notes seeing mottling at the bottom of pts R foot. Reports pt had an Xray and was diagnosed with a fracture of her great toe (denies fall or trauma to the right foot), placed in a CAM boot and discharged with pain meds. Pt reports pain continued to slowly get worse over the next few days and yesterday became severe. Pt went to her PCP who sent her to the ED for further evaluation. Patient presented to [facility] where an ultrasound showed extensive atherosclerotic plaque and abnormal flow in the right lower extremity. Pt was sent to [facility] for a CTA. Reports subjective fevers over the weekend, none since. Denies chest pain, SOB, nausea, headache, or blurry vision. Denies any history of vascular disease or prior vascular interventions/evaluations, h/o afib. Above discussed with pts daughter Carole who corroborated above. Pts daughter states she is a traveling research RN and does not get to see her mom often. At baseline pts daughter lives with a friend who is a night RN in the city. Is able to do the majority of her ADLs at home (daughters bring her food). Ambulates with a cane/walker, reports being able to ambulate multiple blocks without issue prior to this event. Spends whelan in [place] yearly, has stayed in [place] for holidays this year. PMHx: htn, hld, IDDM, diverticulitis with h/o prior gi bleeds requiring admission and transfusion PSHx: tubal ligation/csection Home Medications Medication Instructions Recorded Losartan Potassium [Cozaar -] 50 mg PO BID 08/07/18 Omeprazole Magnesium [Prilosec Otc] 20 mg PO DAILY 08/07/18 Oxybutynin Chloride [Oxybutynin 5 mg PO DAILY 08/07/18 Chloride ER] Sitagliptin Phos/Metformin HCl 1 each PO BID 08/07/18 [Janumet 50-1,000 mg Tablet] Allergies Allergy/AdvReac Type Severity Reaction Status Date / Time Penicillins Allergy Verified 08/07/18 12:35 REVIEW OF SYSTEMS: CONSTITUTIONAL: +subjective fever (now resolved) CARDIOVASCULAR: Absent: chest pain RESPIRATORY: Absent: cough, shortness of breath PHYSICAL EXAM: GENERAL: Awake, alert, and fully oriented, in no acute distress. HEAD: Normal with no signs of trauma. RESP: CTA B/L HEART: Regular rate and rhythm. No murmurs ABDOMEN: Soft, nontender, not distended. LOWER EXTREMITIES: LLE with no edema, no ulcerations, no mottling. L foot motor function intact. RLE with ischemia/mottling over toes upto PIP joints on 2nd- 5th toes and extension to forefoot over great toe. +edema of R foot to ankle. R foot significantly cooler to touch as compared to L foot. Able to slightly wiggle R toes, ankle dorsiflexion/plantar flexion limited. R foot extremely tender to touch. Sensation diminished over toes/forefoot. Vasc: 2+ femorals b/l, L pop/pt/dp with audible doppler signals. R ak pop/pt with faint signal, no dp signal appreciated. Vital Signs Temperature 98.8 F 08/08/18 08:00 Pulse Rate 60 08/08/18 08:00 Respiratory Rate 23 H 08/08/18 08:00 Blood Pressure 156/54 L 08/08/18 08:00 O2 Sat by Pulse Oximetry (%) 98 08/07/18 21:07 Lab Results WBC 6.1 K/mm3 (4.0-10.0) 08/08/18 05:30 RBC 3.41 M/mm3 (3.60-5.2) L 08/08/18 05:30 Hgb 9.3 GM/dL (10.7-15.3) L 08/08/18 05:30 Hct 28.6 % (32.4-45.2) L 08/08/18 05:30 MCV 83.8 fl (80-96) 08/08/18 05:30 MCHC 32.6 g/dl (32.0-36.0) 08/08/18 05:30 RDW 15.3 % (11.6-15.6) 08/08/18 05:30 Plt Count 227 K/MM3 (134-434) 08/08/18 05:30 Sodium 138 mmol/L (136-145) 08/08/18 05:30 Potassium 3.9 mmol/L (3.5-5.1) 08/08/18 05:30 Chloride 102 mmol/L (98-107) 08/08/18 05:30 Carbon Dioxide 28 mmol/L (21-32) 08/08/18 05:30 Anion Gap 8 MMOL/L (8-16) 08/08/18 05:30 BUN 13 mg/dL (7-18) 08/08/18 05:30 Creatinine 0.7 mg/dL (0.55-1.3) 08/08/18 05:30 Random Glucose 182 mg/dL (74-106) H 08/08/18 05:30 Calcium 8.3 mg/dL (8.5-10.1) L 08/08/18 05:30 Blood Type A POSITIVE 08/07/18 20:00 Antibody Screen Negative 08/07/18 13:15 INR 1.20 (0.83-1.09) H 08/08/18 05:30 A/P: 83 y/o F w/ IDDM, htn, hld no known prior vascular history, now a/w acute/ subacute arterial ischemia to RLE. CTA with occluded R popliteal artery and diminished three vessel runoff. R foot with ischemic changes to toes/forefoot. VSS currently (pt hypertensive upon admission last night-treated in ED). PTT 59.6 -Continue Heparin gtt, keep PTT therapeutic (60-80) -NPO, IVF -Plan for OR today Dr Cates to see pt this AM
--- NOTE | 2018-08-08 09:50 | EKG ---
Test Reason : Blood Pressure : / mmHG Vent. Rate : 071 BPM Atrial Rate : 071 BPM P-R Int : 240 ms QRS Dur : 082 ms QT Int : 376 ms P-R-T Axes : 061 003 037 degrees QTc Int : 408 ms SINUS RHYTHM WITH 1ST DEGREE A-V BLOCK MINIMAL VOLTAGE CRITERIA FOR LVH, MAY BE NORMAL VARIANT SEPTAL INFARCT , AGE UNDETERMINED ABNORMAL ECG NO PREVIOUS ECGS AVAILABLE Confirmed by TRIPP FAM, MEMO ([id number]) on 08/08/2018 9:49:53 AM Referred By: SHALA BECKER Confirmed By:MEMO ALMAGUER MD
[2018-08-08] MEDS ORDERED: MUPIROCIN 2% TOPICAL OINTMENT FOR DECOLONIZATION NS SCH (10:00)
[2018-08-08] MEDS: MORPHINE SULFATE 2 MG/ML VIAL IVPUSH PRN (10:41)
[2018-08-08] MEDS: LOSARTAN POTASSIUM 50 MG TABLET (FP) PO SCH ×2 (11:22→21:03)
[2018-08-08] MEDS ORDERED: SODIUM CHLORIDE 1,000 ML IV SCH (12:00)
[2018-08-08] MEDS ORDERED: hydrALAZINE HCL 20 MG/ML VIAL IM ONE (12:15)
[2018-08-08] MEDS ORDERED: hydrALAZINE HCL 20 MG/ML VIAL IVPUSH ONE (12:25)
[2018-08-08] MEDS ORDERED: LACTATED RINGERS SOLUTION 1,000 ML/1,000 ML INFUS.BAG IV SCH (12:30)
--- NOTE | 2018-08-08 12:35 | PN ---
Physical Exam: SUBJECTIVE: Patient seen and examined this morning at bedside. Endorses pain in her right lower extremity. BP spiked overnight to 188/78, medication given. OBJECTIVE: Vital Signs Period Temp Pulse Resp BP Sys/Reyes Pulse Ox Last 24 Hr 98.3 F-99.3 F 58-79 16-23 110-231/45-100 96-100 GENERAL: Awake and Alert HEAD: NC/AT EYES: PERRLA EOMI LUNGS: DEc BS at bases HEART: Regular rate and rhythm, S1, S2 without murmur, rub or gallop. ABDOMEN: NDNT BS+ EXTREMITIES: Right foot cool to touch, R big toe dusky in color, DP not palpable , impaired sensation PSYCH: Normal mood, normal affect. Right foot dusky coloration R big toe, hairless. Laboratory Results - last 24 hr 08/07/18 08/07/18 08/07/18 13:06 13:15 13:15 WBC 6.8 RBC 3.58 L Hgb 9.9 L Hct 30.7 L MCV 85.9 MCH 27.8 MCHC 32.4 RDW 14.7 Plt Count 242 MPV 8.8 Absolute Neuts (auto) 5.2 Neutrophils % 75.1 Lymphocytes % 12.2 Monocytes % 12.2 H Eosinophils % 0.3 Basophils % 0.2 Nucleated RBC % Retic Count PT with INR 13.9 H INR 1.25 H PTT (Actin FS) Sodium Potassium Chloride Carbon Dioxide Anion Gap BUN Creatinine Creat Clearance w eGFR POC Glucometer Random Glucose Hemoglobin A1c % Lactic Acid 0.8 Calcium Ferritin Total Bilirubin AST ALT Alkaline Phosphatase Creatine Kinase Troponin I Total Protein Albumin Triglycerides Cholesterol Total LDL Cholesterol HDL Cholesterol Urine Color Urine Appearance Urine pH Ur Specific [place] Urine Protein Urine Glucose (UA) Urine Ketones Urine Blood Urine Nitrite Urine Bilirubin Urine Urobilinogen Ur Leukocyte Esterase Urine RBC Urine WBC Ur Epithelial Cells Stool Occult Blood Blood Type Antibody Screen 08/07/18 08/07/18 08/07/18 13:15 13:15 13:15 WBC RBC Hgb Hct MCV MCH MCHC RDW Plt Count MPV Absolute Neuts (auto) Neutrophils % Lymphocytes % Monocytes % Eosinophils % Basophils % Nucleated RBC % Retic Count PT with INR INR PTT (Actin FS) Sodium 134 L Potassium 4.3 Chloride 100 Carbon Dioxide 29 H Anion Gap 5 L BUN 19 H Creatinine 0.9 Creat Clearance w eGFR > 60 POC Glucometer Random Glucose 211 H Hemoglobin A1c % Lactic Acid Calcium 8.6 Ferritin Total Bilirubin 0.3 AST 20 ALT 15 Alkaline Phosphatase 48 Creatine Kinase Troponin I < 0.03 Total Protein 6.6 Albumin 2.9 L Triglycerides Cholesterol Total LDL Cholesterol HDL Cholesterol Urine Color Urine Appearance Urine pH Ur Specific [place] Urine Protein Urine Glucose (UA) Urine Ketones Urine Blood Urine Nitrite Urine Bilirubin Urine Urobilinogen Ur Leukocyte Esterase Urine RBC Urine WBC Ur Epithelial Cells Stool Occult Blood Blood Type A POSITIVE Antibody Screen Negative 08/07/18 08/07/18 08/07/18 13:15 14:06 15:32 WBC RBC Hgb Hct MCV MCH MCHC RDW Plt Count MPV Absolute Neuts (auto) Neutrophils % Lymphocytes % Monocytes % Eosinophils % Basophils % Nucleated RBC % Retic Count PT with INR INR PTT (Actin FS) 22.4 L Sodium Potassium Chloride Carbon Dioxide Anion Gap BUN Creatinine Creat Clearance w eGFR POC Glucometer Random Glucose Hemoglobin A1c % Lactic Acid Calcium Ferritin Total Bilirubin AST ALT Alkaline Phosphatase Creatine Kinase Troponin I Total Protein Albumin Triglycerides Cholesterol Total LDL Cholesterol HDL Cholesterol Urine Color Rachelle Urine Appearance Clear Urine pH 6.0 Ur Specific [place] 1.015 Urine Protein 1+ H Urine Glucose (UA) Trace Urine Ketones Trace Urine Blood Negative Urine Nitrite Negative Urine Bilirubin 1+ H Urine Urobilinogen 2.0 H Ur Leukocyte Esterase Negative Urine RBC 0-2 Urine WBC 2-5 Ur Epithelial Cells 4+ Stool Occult Blood Negative Blood Type Antibody Screen 08/07/18 08/07/18 08/07/18 20:00 20:00 20:00 WBC 6.0 RBC 3.48 L Hgb 9.9 L Hct 29.3 L MCV 84.2 MCH 28.5 MCHC 33.8 RDW 15.6 Plt Count 247 MPV 8.4 Absolute Neuts (auto) Neutrophils % Lymphocytes % Monocytes % Eosinophils % Basophils % Nucleated RBC % Retic Count PT with INR INR PTT (Actin FS) Sodium 139 Potassium 3.9 Chloride 100 Carbon Dioxide 31 Anion Gap 7 L BUN 18 Creatinine 0.8 Creat Clearance w eGFR > 60 POC Glucometer Random Glucose 176 H Hemoglobin A1c % Lactic Acid Calcium 8.2 L Ferritin Total Bilirubin 0.2 AST 17 ALT 17 Alkaline Phosphatase 54 Creatine Kinase 87 Troponin I < 0.02 Total Protein 6.5 Albumin 2.6 L Triglycerides Cholesterol Total LDL Cholesterol HDL Cholesterol Urine Color Urine Appearance Urine pH Ur Specific [place] Urine Protein Urine Glucose (UA) Urine Ketones Urine Blood Urine Nitrite Urine Bilirubin Urine Urobilinogen Ur Leukocyte Esterase Urine RBC Urine WBC Ur Epithelial Cells Stool Occult Blood Blood Type A POSITIVE Antibody Screen 08/07/18 08/08/18 08/08/18 20:00 05:30 05:30 WBC 6.1 RBC 3.41 L Hgb 9.3 L Hct 28.6 L MCV 83.8 MCH 27.3 MCHC 32.6 RDW 15.3 Plt Count 227 MPV 8.6 Absolute Neuts (auto) 4.0 Neutrophils % 65.6 Lymphocytes % 23.0 Monocytes % 10.2 Eosinophils % 0.9 Basophils % 0.3 Nucleated RBC % 0 Retic Count PT with INR 14.20 H INR 1.20 H PTT (Actin FS) 40.5 H 59.6 H Sodium Potassium Chloride Carbon Dioxide Anion Gap BUN Creatinine Creat Clearance w eGFR POC Glucometer Random Glucose Hemoglobin A1c % Lactic Acid Calcium Ferritin Total Bilirubin AST ALT Alkaline Phosphatase Creatine Kinase Troponin I Total Protein Albumin Triglycerides Cholesterol Total LDL Cholesterol HDL Cholesterol Urine Color Urine Appearance Urine pH Ur Specific [place] Urine Protein Urine Glucose (UA) Urine Ketones Urine Blood Urine Nitrite Urine Bilirubin Urine Urobilinogen Ur Leukocyte Esterase Urine RBC Urine WBC Ur Epithelial Cells Stool Occult Blood Blood Type Antibody Screen 08/08/18 08/08/18 08/08/18 05:30 05:30 05:30 WBC RBC Hgb Hct MCV MCH MCHC RDW Plt Count MPV Absolute Neuts (auto) Neutrophils % Lymphocytes % Monocytes % Eosinophils % Basophils % Nucleated RBC % Retic Count 0.78 PT with INR INR PTT (Actin FS) Sodium 138 Potassium 3.9 Chloride 102 Carbon Dioxide 28 Anion Gap 8 BUN 13 Creatinine 0.7 Creat Clearance w eGFR > 60 POC Glucometer Random Glucose 182 H Hemoglobin A1c % 9.4 H Lactic Acid Calcium 8.3 L Ferritin Total Bilirubin 0.3 AST 15 ALT 14 Alkaline Phosphatase 50 Creatine Kinase Troponin I Total Protein 6.2 L Albumin 2.4 L Triglycerides Cholesterol Total LDL Cholesterol HDL Cholesterol Urine Color Urine Appearance Urine pH Ur Specific [place] Urine Protein Urine Glucose (UA) Urine Ketones Urine Blood Urine Nitrite Urine Bilirubin Urine Urobilinogen Ur Leukocyte Esterase Urine RBC Urine WBC Ur Epithelial Cells Stool Occult Blood Blood Type Antibody Screen 08/08/18 08/08/18 08/08/18 05:30 05:55 06:00 WBC RBC Hgb Hct MCV MCH MCHC RDW Plt Count MPV Absolute Neuts (auto) Neutrophils % Lymphocytes % Monocytes % Eosinophils % Basophils % Nucleated RBC % Retic Count PT with INR INR PTT (Actin FS) Sodium Potassium Chloride Carbon Dioxide Anion Gap BUN Creatinine Creat Clearance w eGFR POC Glucometer [phone] Random Glucose Hemoglobin A1c % Lactic Acid Calcium Ferritin 52.5 Total Bilirubin AST ALT Alkaline Phosphatase Creatine Kinase Troponin I Total Protein Albumin Triglycerides 70 Cholesterol 98 Total LDL Cholesterol 59 HDL Cholesterol 35 L Urine Color Urine Appearance Urine pH Ur Specific [place] Urine Protein Urine Glucose (UA) Urine Ketones Urine Blood Urine Nitrite Urine Bilirubin Urine Urobilinogen Ur Leukocyte Esterase Urine RBC Urine WBC Ur Epithelial Cells Stool Occult Blood Blood Type Antibody Screen 08/08/18 11:15 WBC RBC Hgb Hct MCV MCH MCHC RDW Plt Count MPV Absolute Neuts (auto) Neutrophils % Lymphocytes % Monocytes % Eosinophils % Basophils % Nucleated RBC % Retic Count PT with INR INR PTT (Actin FS) Sodium Potassium Chloride Carbon Dioxide Anion Gap BUN Creatinine Creat Clearance w eGFR POC Glucometer [phone] Random Glucose Hemoglobin A1c % Lactic Acid Calcium Ferritin Total Bilirubin AST ALT Alkaline Phosphatase Creatine Kinase Troponin I Total Protein Albumin Triglycerides Cholesterol Total LDL Cholesterol HDL Cholesterol Urine Color Urine Appearance Urine pH Ur Specific [place] Urine Protein Urine Glucose (UA) Urine Ketones Urine Blood Urine Nitrite Urine Bilirubin Urine Urobilinogen Ur Leukocyte Esterase Urine RBC Urine WBC Ur Epithelial Cells Stool Occult Blood Blood Type Antibody Screen Active Medications Generic Name Dose Route Start Last Admin Trade Name Freq PRN Reason Stop Dose Admin Chlorhexidine Gluconate 1 applic 08/08/18 22:00 Hibiclens For Decolonization - TP HS FLYNN Heparin Sodium (Porcine) 1,000 unit 08/07/18 21:48 08/07/18 22:00 Heparin - IVPUSH 1,000 unit PRN PRN Administration Heparin Heparin Sodium (Porcine) 5,000 unit 08/07/18 21:48 Heparin - IVPUSH PRN PRN Heparin Hydralazine HCl 10 mg 08/08/18 12:25 Apresoline Injection - IVPUSH 08/08/18 12:26 ONCE ONE Heparin Sodium (Porcine) 25, 500 mls @ 20 mls/hr 08/07/18 14:15 08/08/18 08: 32 000 unit/ Sodium Chloride IV 1,150 unit/hr TITR FLYNN 23 mls/hr Titration Protocol 1,000 UNIT/HR Sodium Chloride 1,000 mls @ 75 mls/hr 08/08/18 12:00 Normal Saline - IV ASDIR FLYNN Lactated Ringer's 1,000 ml in 1,000 mls @ 50 mls/hr 08/08/18 12:30 Lactated Ringers Solution IV ASDIR FLYNN Insulin Aspart 1 vial 08/08/18 07:00 08/08/18 11:22 Novolog Vial Sliding Scale - SQ 4 units ACHS FLYNN Administration Protocol Losartan Potassium 50 mg 08/08/18 11:00 08/08/18 11:22 Cozaar - PO 50 mg BID FLYNN Administration Morphine Sulfate 1 mg 08/07/18 22:25 08/08/18 10:41 Morphine Sulfate IVPUSH 1 mg Q3H PRN Administration PAIN LEVEL 7 - 10 Mupirocin 1 applic 08/08/18 10:00 08/08/18 10:42 Bactroban Ointment (For Decolonization) - NS 08/13/18 09:59 1 applic BID FLYNN Administration ASSESSMENT/PLAN: This is an 83 year old woman with a history of type 2 DM, HTN who presented to the ED with right foot pain. 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 # Hypertensive urgency - Resolved #. HTN - Cozaar and Norvasc # Hyponatremia, mild - Resolved #. Type 2 DM - Metformin, Januvia held - Continue Novolog sliding scale f/u with dr dietz for angioplasty and AC Visit type - Emergency Visit Emergency Visit: Yes ED Registration Date: 08/07/18 Care time: The patient presented to the Emergency Department on the above date and was hospitalized for further evaluation of their emergent condition. - New Patient This patient is new to me today: Yes Date on this admission: 08/08/18 - Critical Care Critical Care patient: Yes Total Critical Care Time (in minutes): 35 Critical Care Statement: The care of this patient involved high complexity decision making to prevent further life threatening deterioration of the patient 's condition and/or to evaluate & treat vital organ system(s) failure or risk of failure. - Discharge Referral Referred to [facility] Med P.C.: No
--- NOTE | 2018-08-08 13:28 | PN ---
Teaching Attending Note Name of Resident: London Pope ATTENDING PHYSICIAN STATEMENT I saw and evaluated the patient. I reviewed the resident's note and discussed the case with the resident. I agree with the resident's findings and plan as documented. SUBJECTIVE: Patient complains of pain in her right foot. OBJECTIVE: Vital Signs Period Temp Pulse Resp BP Sys/Reyes Pulse Ox Last 24 Hr 98.3 F-98.8 F 58-68 16-23 110-218/45-100 97-100 HEART: S1S2, RRR LUNGS: Clear ABDOMEN: Soft, non-tender, non-distended, normal BS EXTREMITIES: Right foot swollen and cool; right 1st, 4th, 5th toes dusky; right brazing machine tender to minimal touch; no right DP/PT pulses palpable or found with doppler Laboratory Results - last 24 hr 08/07/18 08/07/18 08/07/18 13:06 13:15 13:15 WBC 6.8 RBC 3.58 L Hgb 9.9 L Hct 30.7 L MCV 85.9 MCH 27.8 MCHC 32.4 RDW 14.7 Plt Count 242 MPV 8.8 Absolute Neuts (auto) 5.2 Neutrophils % 75.1 Lymphocytes % 12.2 Monocytes % 12.2 H Eosinophils % 0.3 Basophils % 0.2 Nucleated RBC % Retic Count PT with INR 13.9 H INR 1.25 H PTT (Actin FS) Sodium Potassium Chloride Carbon Dioxide Anion Gap BUN Creatinine Creat Clearance w eGFR POC Glucometer Random Glucose Hemoglobin A1c % Lactic Acid 0.8 Calcium Ferritin Total Bilirubin AST ALT Alkaline Phosphatase Creatine Kinase Troponin I Total Protein Albumin Triglycerides Cholesterol Total LDL Cholesterol HDL Cholesterol Urine Color Urine Appearance Urine pH Ur Specific [place] Urine Protein Urine Glucose (UA) Urine Ketones Urine Blood Urine Nitrite Urine Bilirubin Urine Urobilinogen Ur Leukocyte Esterase Urine RBC Urine WBC Ur Epithelial Cells Stool Occult Blood Blood Type Antibody Screen 08/07/18 08/07/18 08/07/18 13:15 13:15 13:15 WBC RBC Hgb Hct MCV MCH MCHC RDW Plt Count MPV Absolute Neuts (auto) Neutrophils % Lymphocytes % Monocytes % Eosinophils % Basophils % Nucleated RBC % Retic Count PT with INR INR PTT (Actin FS) Sodium 134 L Potassium 4.3 Chloride 100 Carbon Dioxide 29 H Anion Gap 5 L BUN 19 H Creatinine 0.9 Creat Clearance w eGFR > 60 POC Glucometer Random Glucose 211 H Hemoglobin A1c % Lactic Acid Calcium 8.6 Ferritin Total Bilirubin 0.3 AST 20 ALT 15 Alkaline Phosphatase 48 Creatine Kinase Troponin I < 0.03 Total Protein 6.6 Albumin 2.9 L Triglycerides Cholesterol Total LDL Cholesterol HDL Cholesterol Urine Color Urine Appearance Urine pH Ur Specific [place] Urine Protein Urine Glucose (UA) Urine Ketones Urine Blood Urine Nitrite Urine Bilirubin Urine Urobilinogen Ur Leukocyte Esterase Urine RBC Urine WBC Ur Epithelial Cells Stool Occult Blood Blood Type A POSITIVE Antibody Screen Negative 08/07/18 08/07/18 08/07/18 13:15 14:06 15:32 WBC RBC Hgb Hct MCV MCH MCHC RDW Plt Count MPV Absolute Neuts (auto) Neutrophils % Lymphocytes % Monocytes % Eosinophils % Basophils % Nucleated RBC % Retic Count PT with INR INR PTT (Actin FS) 22.4 L Sodium Potassium Chloride Carbon Dioxide Anion Gap BUN Creatinine Creat Clearance w eGFR POC Glucometer Random Glucose Hemoglobin A1c % Lactic Acid Calcium Ferritin Total Bilirubin AST ALT Alkaline Phosphatase Creatine Kinase Troponin I Total Protein Albumin Triglycerides Cholesterol Total LDL Cholesterol HDL Cholesterol Urine Color Rachelle Urine Appearance Clear Urine pH 6.0 Ur Specific [place] 1.015 Urine Protein 1+ H Urine Glucose (UA) Trace Urine Ketones Trace Urine Blood Negative Urine Nitrite Negative Urine Bilirubin 1+ H Urine Urobilinogen 2.0 H Ur Leukocyte Esterase Negative Urine RBC 0-2 Urine WBC 2-5 Ur Epithelial Cells 4+ Stool Occult Blood Negative Blood Type Antibody Screen 08/07/18 08/07/18 08/07/18 20:00 20:00 20:00 WBC 6.0 RBC 3.48 L Hgb 9.9 L Hct 29.3 L MCV 84.2 MCH 28.5 MCHC 33.8 RDW 15.6 Plt Count 247 MPV 8.4 Absolute Neuts (auto) Neutrophils % Lymphocytes % Monocytes % Eosinophils % Basophils % Nucleated RBC % Retic Count PT with INR INR PTT (Actin FS) Sodium 139 Potassium 3.9 Chloride 100 Carbon Dioxide 31 Anion Gap 7 L BUN 18 Creatinine 0.8 Creat Clearance w eGFR > 60 POC Glucometer Random Glucose 176 H Hemoglobin A1c % Lactic Acid Calcium 8.2 L Ferritin Total Bilirubin 0.2 AST 17 ALT 17 Alkaline Phosphatase 54 Creatine Kinase 87 Troponin I < 0.02 Total Protein 6.5 Albumin 2.6 L Triglycerides Cholesterol Total LDL Cholesterol HDL Cholesterol Urine Color Urine Appearance Urine pH Ur Specific [place] Urine Protein Urine Glucose (UA) Urine Ketones Urine Blood Urine Nitrite Urine Bilirubin Urine Urobilinogen Ur Leukocyte Esterase Urine RBC Urine WBC Ur Epithelial Cells Stool Occult Blood Blood Type A POSITIVE Antibody Screen 08/07/18 08/08/18 08/08/18 20:00 05:30 05:30 WBC 6.1 RBC 3.41 L Hgb 9.3 L Hct 28.6 L MCV 83.8 MCH 27.3 MCHC 32.6 RDW 15.3 Plt Count 227 MPV 8.6 Absolute Neuts (auto) 4.0 Neutrophils % 65.6 Lymphocytes % 23.0 Monocytes % 10.2 Eosinophils % 0.9 Basophils % 0.3 Nucleated RBC % 0 Retic Count PT with INR 14.20 H INR 1.20 H PTT (Actin FS) 40.5 H 59.6 H Sodium Potassium Chloride Carbon Dioxide Anion Gap BUN Creatinine Creat Clearance w eGFR POC Glucometer Random Glucose Hemoglobin A1c % Lactic Acid Calcium Ferritin Total Bilirubin AST ALT Alkaline Phosphatase Creatine Kinase Troponin I Total Protein Albumin Triglycerides Cholesterol Total LDL Cholesterol HDL Cholesterol Urine Color Urine Appearance Urine pH Ur Specific [place] Urine Protein Urine Glucose (UA) Urine Ketones Urine Blood Urine Nitrite Urine Bilirubin Urine Urobilinogen Ur Leukocyte Esterase Urine RBC Urine WBC Ur Epithelial Cells Stool Occult Blood Blood Type Antibody Screen 08/08/18 08/08/18 08/08/18 05:30 05:30 05:30 WBC RBC Hgb Hct MCV MCH MCHC RDW Plt Count MPV Absolute Neuts (auto) Neutrophils % Lymphocytes % Monocytes % Eosinophils % Basophils % Nucleated RBC % Retic Count 0.78 PT with INR INR PTT (Actin FS) Sodium 138 Potassium 3.9 Chloride 102 Carbon Dioxide 28 Anion Gap 8 BUN 13 Creatinine 0.7 Creat Clearance w eGFR > 60 POC Glucometer Random Glucose 182 H Hemoglobin A1c % 9.4 H Lactic Acid Calcium 8.3 L Ferritin Total Bilirubin 0.3 AST 15 ALT 14 Alkaline Phosphatase 50 Creatine Kinase Troponin I Total Protein 6.2 L Albumin 2.4 L Triglycerides Cholesterol Total LDL Cholesterol HDL Cholesterol Urine Color Urine Appearance Urine pH Ur Specific [place] Urine Protein Urine Glucose (UA) Urine Ketones Urine Blood Urine Nitrite Urine Bilirubin Urine Urobilinogen Ur Leukocyte Esterase Urine RBC Urine WBC Ur Epithelial Cells Stool Occult Blood Blood Type Antibody Screen 08/08/18 08/08/18 08/08/18 05:30 05:55 06:00 WBC RBC Hgb Hct MCV MCH MCHC RDW Plt Count MPV Absolute Neuts (auto) Neutrophils % Lymphocytes % Monocytes % Eosinophils % Basophils % Nucleated RBC % Retic Count PT with INR INR PTT (Actin FS) Sodium Potassium Chloride Carbon Dioxide Anion Gap BUN Creatinine Creat Clearance w eGFR POC Glucometer [phone] Random Glucose Hemoglobin A1c % Lactic Acid Calcium Ferritin 52.5 Total Bilirubin AST ALT Alkaline Phosphatase Creatine Kinase Troponin I Total Protein Albumin Triglycerides 70 Cholesterol 98 Total LDL Cholesterol 59 HDL Cholesterol 35 L Urine Color Urine Appearance Urine pH Ur Specific [place] Urine Protein Urine Glucose (UA) Urine Ketones Urine Blood Urine Nitrite Urine Bilirubin Urine Urobilinogen Ur Leukocyte Esterase Urine RBC Urine WBC Ur Epithelial Cells Stool Occult Blood Blood Type Antibody Screen 08/08/18 11:15 WBC RBC Hgb Hct MCV MCH MCHC RDW Plt Count MPV Absolute Neuts (auto) Neutrophils % Lymphocytes % Monocytes % Eosinophils % Basophils % Nucleated RBC % Retic Count PT with INR INR PTT (Actin FS) Sodium Potassium Chloride Carbon Dioxide Anion Gap BUN Creatinine Creat Clearance w eGFR POC Glucometer [phone] Random Glucose Hemoglobin A1c % Lactic Acid Calcium Ferritin Total Bilirubin AST ALT Alkaline Phosphatase Creatine Kinase Troponin I Total Protein Albumin Triglycerides Cholesterol Total LDL Cholesterol HDL Cholesterol Urine Color Urine Appearance Urine pH Ur Specific [place] Urine Protein Urine Glucose (UA) Urine Ketones Urine Blood Urine Nitrite Urine Bilirubin Urine Urobilinogen Ur Leukocyte Esterase Urine RBC Urine WBC Ur Epithelial Cells Stool Occult Blood Blood Type Antibody Screen Current Medications Generic Name Dose Route Start Last Admin Trade Name Freq PRN Reason Stop Dose Admin Chlorhexidine Gluconate 1 applic 08/08/18 22:00 Hibiclens For Decolonization - TP HS FLYNN Heparin Sodium (Porcine) 1,000 unit 08/07/18 21:48 08/07/18 22:00 Heparin - IVPUSH 1,000 unit PRN PRN Administration Heparin Heparin Sodium (Porcine) 5,000 unit 08/07/18 21:48 Heparin - IVPUSH PRN PRN Heparin Heparin Sodium (Porcine) 25, 500 mls @ 20 mls/hr 08/07/18 14:15 08/08/18 08: 32 000 unit/ Sodium Chloride IV 1,150 unit/hr TITR FLYNN 23 mls/hr Titration Protocol 1,000 UNIT/HR Lactated Ringer's 1,000 ml in 1,000 mls @ 50 mls/hr 08/08/18 12:30 08/08/18 13:02 Lactated Ringers Solution IV 50 mls/hr ASDIR FLYNN Administration Insulin Aspart 1 vial 08/08/18 07:00 08/08/18 11:22 Novolog Vial Sliding Scale - SQ 4 units ACHS FLYNN Administration Protocol Losartan Potassium 50 mg 08/08/18 11:00 08/08/18 11:22 Cozaar - PO 50 mg BID FLYNN Administration Morphine Sulfate 1 mg 08/07/18 22:25 08/08/18 10:41 Morphine Sulfate IVPUSH 1 mg Q3H PRN Administration PAIN LEVEL 7 - 10 Mupirocin 1 applic 08/08/18 10:00 08/08/18 10:42 Bactroban Ointment (For Decolonization) - NS 08/13/18 09:59 1 applic BID FLYNN Administration ASSESSMENT AND PLAN: This is an 83 year old woman with a history of type 2 DM, HTN who presented to the ED with right foot pain. 1. 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 Hypertensive urgency - Resolved 3. HTN - Continue Cozaar 4. Hyponatremia, mild - Resolved 5. Type 2 DM - Metformin, Januvia held - Continue Novolog sliding scale
--- NOTE | 2018-08-08 13:43 | PN ---
Physical Exam: SUBJECTIVE: Patient seen and examined in the ICU. no complaints. pain w/ movement of foot. going for vascvular OR today. overnight HTN urgency, was stabilized w/ labetolol home losartan and hydralazine OBJECTIVE: Vital Signs Period Temp Pulse Resp BP Sys/Reyes Pulse Ox Last 24 Hr 98.3 F-98.8 F 58-68 16-23 110-218/45-100 97-100 GENERAL: AOX3 NAD HEAD: NCAT EYES: Pupils equal, round and reactive to light, extraocular movements intact, sclera anicteric, conjunctiva clear. No lid lag. EARS, NOSE, THROAT: Oropharynx clear without exudates. MMM NECK: (-) lymphadenopathy, JVD, or masses. LUNGS: CTAB HEART: Bradycardic with regular rhythm, normal S1 and S2 without m/r/g ABDOMEN: Soft, NTND +BS, no guarding, no rebound, no masses. No hepatomegaly or splenomegaly. MUSCULOSKELETAL: Normal range of motion at all joints. No bony deformities or tenderness. UPPER EXTREMITIES: No peripheral edema. LOWER EXTREMITIES: Unable to palpate or hear DP pulse on doppler with green/ black right toes. Cool to touch and tenderness upon palpation of right foot. (+ ) 2+ pitting edema of right LE up to the knees. sensations intact. PT pulses heard on doppler of right foot NEUROLOGICAL: Cranial nerves II-XII intact. Normal speech. PSYCHIATRIC: Cooperative. Good eye contact. Appropriate mood and affect. Laboratory Results - last 24 hr 08/07/18 08/07/18 08/07/18 13:06 13:15 13:15 WBC 6.8 RBC 3.58 L Hgb 9.9 L Hct 30.7 L MCV 85.9 MCH 27.8 MCHC 32.4 RDW 14.7 Plt Count 242 MPV 8.8 Absolute Neuts (auto) 5.2 Neutrophils % 75.1 Lymphocytes % 12.2 Monocytes % 12.2 H Eosinophils % 0.3 Basophils % 0.2 Nucleated RBC % Retic Count PT with INR 13.9 H INR 1.25 H PTT (Actin FS) Sodium Potassium Chloride Carbon Dioxide Anion Gap BUN Creatinine Creat Clearance w eGFR POC Glucometer Random Glucose Hemoglobin A1c % Lactic Acid 0.8 Calcium Ferritin Total Bilirubin AST ALT Alkaline Phosphatase Creatine Kinase Troponin I Total Protein Albumin Triglycerides Cholesterol Total LDL Cholesterol HDL Cholesterol Urine Color Urine Appearance Urine pH Ur Specific [place] Urine Protein Urine Glucose (UA) Urine Ketones Urine Blood Urine Nitrite Urine Bilirubin Urine Urobilinogen Ur Leukocyte Esterase Urine RBC Urine WBC Ur Epithelial Cells Stool Occult Blood Blood Type Antibody Screen 08/07/18 08/07/18 08/07/18 13:15 13:15 13:15 WBC RBC Hgb Hct MCV MCH MCHC RDW Plt Count MPV Absolute Neuts (auto) Neutrophils % Lymphocytes % Monocytes % Eosinophils % Basophils % Nucleated RBC % Retic Count PT with INR INR PTT (Actin FS) Sodium 134 L Potassium 4.3 Chloride 100 Carbon Dioxide 29 H Anion Gap 5 L BUN 19 H Creatinine 0.9 Creat Clearance w eGFR > 60 POC Glucometer Random Glucose 211 H Hemoglobin A1c % Lactic Acid Calcium 8.6 Ferritin Total Bilirubin 0.3 AST 20 ALT 15 Alkaline Phosphatase 48 Creatine Kinase Troponin I < 0.03 Total Protein 6.6 Albumin 2.9 L Triglycerides Cholesterol Total LDL Cholesterol HDL Cholesterol Urine Color Urine Appearance Urine pH Ur Specific [place] Urine Protein Urine Glucose (UA) Urine Ketones Urine Blood Urine Nitrite Urine Bilirubin Urine Urobilinogen Ur Leukocyte Esterase Urine RBC Urine WBC Ur Epithelial Cells Stool Occult Blood Blood Type A POSITIVE Antibody Screen Negative 08/07/18 08/07/18 08/07/18 13:15 14:06 15:32 WBC RBC Hgb Hct MCV MCH MCHC RDW Plt Count MPV Absolute Neuts (auto) Neutrophils % Lymphocytes % Monocytes % Eosinophils % Basophils % Nucleated RBC % Retic Count PT with INR INR PTT (Actin FS) 22.4 L Sodium Potassium Chloride Carbon Dioxide Anion Gap BUN Creatinine Creat Clearance w eGFR POC Glucometer Random Glucose Hemoglobin A1c % Lactic Acid Calcium Ferritin Total Bilirubin AST ALT Alkaline Phosphatase Creatine Kinase Troponin I Total Protein Albumin Triglycerides Cholesterol Total LDL Cholesterol HDL Cholesterol Urine Color Rachelle Urine Appearance Clear Urine pH 6.0 Ur Specific [place] 1.015 Urine Protein 1+ H Urine Glucose (UA) Trace Urine Ketones Trace Urine Blood Negative Urine Nitrite Negative Urine Bilirubin 1+ H Urine Urobilinogen 2.0 H Ur Leukocyte Esterase Negative Urine RBC 0-2 Urine WBC 2-5 Ur Epithelial Cells 4+ Stool Occult Blood Negative Blood Type Antibody Screen 08/07/18 08/07/18 08/07/18 20:00 20:00 20:00 WBC 6.0 RBC 3.48 L Hgb 9.9 L Hct 29.3 L MCV 84.2 MCH 28.5 MCHC 33.8 RDW 15.6 Plt Count 247 MPV 8.4 Absolute Neuts (auto) Neutrophils % Lymphocytes % Monocytes % Eosinophils % Basophils % Nucleated RBC % Retic Count PT with INR INR PTT (Actin FS) Sodium 139 Potassium 3.9 Chloride 100 Carbon Dioxide 31 Anion Gap 7 L BUN 18 Creatinine 0.8 Creat Clearance w eGFR > 60 POC Glucometer Random Glucose 176 H Hemoglobin A1c % Lactic Acid Calcium 8.2 L Ferritin Total Bilirubin 0.2 AST 17 ALT 17 Alkaline Phosphatase 54 Creatine Kinase 87 Troponin I < 0.02 Total Protein 6.5 Albumin 2.6 L Triglycerides Cholesterol Total LDL Cholesterol HDL Cholesterol Urine Color Urine Appearance Urine pH Ur Specific [place] Urine Protein Urine Glucose (UA) Urine Ketones Urine Blood Urine Nitrite Urine Bilirubin Urine Urobilinogen Ur Leukocyte Esterase Urine RBC Urine WBC Ur Epithelial Cells Stool Occult Blood Blood Type A POSITIVE Antibody Screen 08/07/18 08/08/18 08/08/18 20:00 05:30 05:30 WBC 6.1 RBC 3.41 L Hgb 9.3 L Hct 28.6 L MCV 83.8 MCH 27.3 MCHC 32.6 RDW 15.3 Plt Count 227 MPV 8.6 Absolute Neuts (auto) 4.0 Neutrophils % 65.6 Lymphocytes % 23.0 Monocytes % 10.2 Eosinophils % 0.9 Basophils % 0.3 Nucleated RBC % 0 Retic Count PT with INR 14.20 H INR 1.20 H PTT (Actin FS) 40.5 H 59.6 H Sodium Potassium Chloride Carbon Dioxide Anion Gap BUN Creatinine Creat Clearance w eGFR POC Glucometer Random Glucose Hemoglobin A1c % Lactic Acid Calcium Ferritin Total Bilirubin AST ALT Alkaline Phosphatase Creatine Kinase Troponin I Total Protein Albumin Triglycerides Cholesterol Total LDL Cholesterol HDL Cholesterol Urine Color Urine Appearance Urine pH Ur Specific [place] Urine Protein Urine Glucose (UA) Urine Ketones Urine Blood Urine Nitrite Urine Bilirubin Urine Urobilinogen Ur Leukocyte Esterase Urine RBC Urine WBC Ur Epithelial Cells Stool Occult Blood Blood Type Antibody Screen 08/08/18 08/08/18 08/08/18 05:30 05:30 05:30 WBC RBC Hgb Hct MCV MCH MCHC RDW Plt Count MPV Absolute Neuts (auto) Neutrophils % Lymphocytes % Monocytes % Eosinophils % Basophils % Nucleated RBC % Retic Count 0.78 PT with INR INR PTT (Actin FS) Sodium 138 Potassium 3.9 Chloride 102 Carbon Dioxide 28 Anion Gap 8 BUN 13 Creatinine 0.7 Creat Clearance w eGFR > 60 POC Glucometer Random Glucose 182 H Hemoglobin A1c % 9.4 H Lactic Acid Calcium 8.3 L Ferritin Total Bilirubin 0.3 AST 15 ALT 14 Alkaline Phosphatase 50 Creatine Kinase Troponin I Total Protein 6.2 L Albumin 2.4 L Triglycerides Cholesterol Total LDL Cholesterol HDL Cholesterol Urine Color Urine Appearance Urine pH Ur Specific [place] Urine Protein Urine Glucose (UA) Urine Ketones Urine Blood Urine Nitrite Urine Bilirubin Urine Urobilinogen Ur Leukocyte Esterase Urine RBC Urine WBC Ur Epithelial Cells Stool Occult Blood Blood Type Antibody Screen 08/08/18 08/08/18 08/08/18 05:30 05:55 06:00 WBC RBC Hgb Hct MCV MCH MCHC RDW Plt Count MPV Absolute Neuts (auto) Neutrophils % Lymphocytes % Monocytes % Eosinophils % Basophils % Nucleated RBC % Retic Count PT with INR INR PTT (Actin FS) Sodium Potassium Chloride Carbon Dioxide Anion Gap BUN Creatinine Creat Clearance w eGFR POC Glucometer [phone] Random Glucose Hemoglobin A1c % Lactic Acid Calcium Ferritin 52.5 Total Bilirubin AST ALT Alkaline Phosphatase Creatine Kinase Troponin I Total Protein Albumin Triglycerides 70 Cholesterol 98 Total LDL Cholesterol 59 HDL Cholesterol 35 L Urine Color Urine Appearance Urine pH Ur Specific [place] Urine Protein Urine Glucose (UA) Urine Ketones Urine Blood Urine Nitrite Urine Bilirubin Urine Urobilinogen Ur Leukocyte Esterase Urine RBC Urine WBC Ur Epithelial Cells Stool Occult Blood Blood Type Antibody Screen 08/08/18 11:15 WBC RBC Hgb Hct MCV MCH MCHC RDW Plt Count MPV Absolute Neuts (auto) Neutrophils % Lymphocytes % Monocytes % Eosinophils % Basophils % Nucleated RBC % Retic Count PT with INR INR PTT (Actin FS) Sodium Potassium Chloride Carbon Dioxide Anion Gap BUN Creatinine Creat Clearance w eGFR POC Glucometer [phone] Random Glucose Hemoglobin A1c % Lactic Acid Calcium Ferritin Total Bilirubin AST ALT Alkaline Phosphatase Creatine Kinase Troponin I Total Protein Albumin Triglycerides Cholesterol Total LDL Cholesterol HDL Cholesterol Urine Color Urine Appearance Urine pH Ur Specific [place] Urine Protein Urine Glucose (UA) Urine Ketones Urine Blood Urine Nitrite Urine Bilirubin Urine Urobilinogen Ur Leukocyte Esterase Urine RBC Urine WBC Ur Epithelial Cells Stool Occult Blood Blood Type Antibody Screen Active Medications Generic Name Dose Route Start Last Admin Trade Name Freq PRN Reason Stop Dose Admin Chlorhexidine Gluconate 1 applic 08/08/18 22:00 Hibiclens For Decolonization - TP HS FLYNN Heparin Sodium (Porcine) 1,000 unit 08/07/18 21:48 08/07/18 22:00 Heparin - IVPUSH 1,000 unit PRN PRN Administration Heparin Heparin Sodium (Porcine) 5,000 unit 08/07/18 21:48 Heparin - IVPUSH PRN PRN Heparin Heparin Sodium (Porcine) 25, 500 mls @ 20 mls/hr 08/07/18 14:15 08/08/18 08: 32 000 unit/ Sodium Chloride IV 1,150 unit/hr TITR FLYNN 23 mls/hr Titration Protocol 1,000 UNIT/HR Lactated Ringer's 1,000 ml in 1,000 mls @ 50 mls/hr 08/08/18 12:30 08/08/18 13:02 Lactated Ringers Solution IV 50 mls/hr ASDIR FLYNN Administration Insulin Aspart 1 vial 08/08/18 07:00 08/08/18 11:22 Novolog Vial Sliding Scale - SQ 4 units ACHS FLYNN Administration Protocol Losartan Potassium 50 mg 08/08/18 11:00 08/08/18 11:22 Cozaar - PO 50 mg BID FLYNN Administration Morphine Sulfate 1 mg 08/07/18 22:25 08/08/18 10:41 Morphine Sulfate IVPUSH 1 mg Q3H PRN Administration PAIN LEVEL 7 - 10 Mupirocin 1 applic 08/08/18 10:00 08/08/18 10:42 Bactroban Ointment (For Decolonization) - NS 08/13/18 09:59 1 applic BID FLYNN Administration ASSESSMENT/PLAN: 83 year old female PMHx of NIDDMII, HTN, GERD, overactive bladder who presented for right foot pain and was found to have acute limb ischemia of the RLE. Patient started on Heparin drip and admitted to ICU for further monitoring and management. Going for vascular surgery today VASCULAR Acute Limb Ischemia -Duplex revealed extensive atherosclerotic disease with abnormal flow throught RLE, no flow noted within distal popliteal and posterior tibial arteries -CTA with occluded R popliteal artery and diminished three vessel runoff. R foot with ischemic changes to toes/forefoot. -Heparin drip -Pain control with Morphine 1mg Q3H PRN -Going for vascular surgery today -NPO -Lipid panel and A1C 9.4 CARDIO HTN Urgency -Likely 2/2 noncompliance with medication -received 10mg IVP and 100mg PO of Labetolol in the ED -Resumed home dose Losartan 50mg PO -May give Hydralazine PRN or Amlodipine PRN -monitor BP ENDOCRINOLOGY NIDDMII uncontrolled -A1C 9.4 -BGM -ISS HEMATOLOGY Normocytic Anemia -Unclear etiology, possibly due to inflammatory state -f/u iron studies -Stool Guaic negative -Continue to monitor CBC GASTROENTEROLOGY GERD -Continue home medication Prilosec once medications confirmed UROLOGY Overactive bladder -Continue Oxybutynin 5mg po once medications are confirmed NEPHROLOGY Hypoalbuminemia -Likely multifactorial as patient has 1+ Proteins in urine and now in acute inflammatory state with noncompliance to diabetic and anti-htn medications. -Continue to monitor -Nutrition/Rn Forensic consult, as per primary team Mild Hyponatremia -Likely secondary to inflammatory state and decrease PO -now resolved ID f/u Ucx, Bcx FEN -LR 50cc -replete lytes prn -NPO ppx -Heparin drip for DVT -Prilosec once medication confirmed for GI Disposition -Full code -ICU monitoring -Going for vascular surgery today Visit type - Emergency Visit Emergency Visit: Yes ED Registration Date: 08/07/18 Care time: The patient presented to the Emergency Department on the above date and was hospitalized for further evaluation of their emergent condition. - New Patient This patient is new to me today: Yes Date on this admission: 08/08/18 - Critical Care Critical Care patient: Yes Total Critical Care Time (in minutes): 38 Critical Care Statement: The care of this patient involved high complexity decision making to prevent further life threatening deterioration of the patient 's condition and/or to evaluate & treat vital organ system(s) failure or risk of failure.
[2018-08-08] MEDS ORDERED: PT OWN MED DRAWER 7, Y5N ONE (13:53)
[2018-08-08] MEDS ORDERED: ONDANSETRON 4 MG/2 ML VIAL IVPUSH PRN (14:07)
[2018-08-08] MEDS ORDERED: PROMETHAZINE HCL 25 MG/1 ML VIAL IVPUSH PRN (14:07)
[2018-08-08] MEDS ORDERED: HEPARIN NA (PORCINE) 5,000 UNITS/ML 1ML VIAL ONE ×3 (14:12→15:48)
[2018-08-08] MEDS ORDERED: LIDOCAINE HCL 1%, 10 MG/ML (20ML VIAL) ONE (14:13)
[2018-08-08] MEDS ORDERED: LACTATED RINGERS SOLUTION 1,000 ML IV SCH ×2 (14:15→16:31)
--- NOTE | 2018-08-08 14:18 | PN ---
Teaching Attending Note Name of Resident: Manolo Quinones ATTENDING PHYSICIAN STATEMENT I saw and evaluated the patient. I reviewed the resident's note and discussed the case with the resident. I agree with the resident's findings and plan as documented. SUBJECTIVE: Pt seen and examined in the ICU. Right foot pain and discoloration. Denies shortness of breath or chest pain. OBJECTIVE: Vital Signs Period Temp Pulse Resp BP Sys/Reyes Pulse Ox Last 24 Hr 98.3 F-98.8 F 58-68 16-23 110-218/45-100 97-100 Intake & Output 08/05/18 08/06/18 08/07/18 08/08/18 23:59 23:59 23:59 23:59 Intake Total 276 Balance 276 Weight 68.6 kg 68.6 kg Gen: NAD at rest Heart: RRR Lung: decreased breath sounds at the bases Abd: soft, nontender Ext: R Foot ischemia CBC, BMP 08/08/18 05:30 08/08/18 05:30 Active Medications Chlorhexidine Gluconate (Hibiclens For Decolonization -) 1 applic TP HS FLYNN Fentanyl (Sublimaze Injection -) 50 mcg IVPUSH [id number] PRN PRN Reason: PAIN-PACU ORDER X 4 DOSES ONLY Heparin Sodium (Porcine) (Heparin -) 1,000 unit IVPUSH PRN PRN PRN Reason: Heparin Last Admin: 08/07/18 22:00 Dose: 1,000 unit Heparin Sodium (Porcine) (Heparin -) 5,000 unit IVPUSH PRN PRN PRN Reason: Heparin Heparin Sodium (Porcine) 25, (000 unit/ Sodium Chloride) 500 mls @ 20 mls/hr IV TITR FLYNN; Protocol Last Titration: 08/08/18 08:32 Dose: 1,150 unit/hr, 23 mls/hr Lactated Ringer's (Lactated Ringers Solution) 1,000 ml in 1,000 mls @ 50 mls/ hr IV ASDIR FLYNN Last Admin: 08/08/18 13:02 Dose: 50 mls/hr Lactated Ringer's (Lactated Ringers Solution) 1,000 mls @ 125 mls/hr IV ASDIR FLYNN Insulin Aspart (Novolog Vial Sliding Scale -) 1 vial SQ ACHS FLYNN; Protocol Last Admin: 08/08/18 11:22 Dose: 4 units Losartan Potassium (Cozaar -) 50 mg PO BID [facility] Last Admin: 08/08/18 11:22 Dose: 50 mg Morphine Sulfate (Morphine Sulfate) 1 mg IVPUSH Q3H PRN PRN Reason: PAIN LEVEL 7 - 10 Last Admin: 08/08/18 10:41 Dose: 1 mg Mupirocin (Bactroban Ointment (For Decolonization) -) 1 applic NS BID [facility] Stop: 08/13/18 09:59 Last Admin: 08/08/18 10:42 Dose: 1 applic Ondansetron HCl (Zofran Injection) 4 mg IVPUSH Q6H PRN PRN Reason: NAUSEA AND/OR VOMITING Promethazine HCl (Phenergan Injection -) 12.5 mg IVPUSH Q6H PRN PRN Reason: NAUSEA-FOR RESCUE AFTER 15 MIN ASSESSMENT AND PLAN: R SFA/Popliteal Occlusion Hypertensive Urgency HTN DM GERD - for OR today - continue heparin gtt - pain control - BP control - IVF - monitor urine output, creatinine - post op ICU monitoring
--- NOTE | 2018-08-08 14:25 | PN ---
Progress Note (short form) - Note Progress Note: Vascular Surgery 3 week history of right foot pain. Right great toe, 4th and 5th toes are discolored. Pt has pain in toes on palpation. Pt is a uncontrolled Diabetic. Pt does not take her medications for diabetes. HBA1C is 9.4. Pt went to [facility] 3 weeks ago with same problem and they said pt has a right great toe fracture. Xray of foot done here yesterday does not show that. CTA done over night shows right SFA/Pop occlusion. Not sure if it is clot vs [place] disease. Spoke to daughter at bedside. She understands everything. Will do angiogram , pt might need thrombolysis if clot is found. All risks, benefits, alternatives explained to daughter and patient. William Cates DO
[2018-08-08] MEDS ORDERED: PROPOFOL 20 ML ONE (14:26)
[2018-08-08] MEDS: HEPARIN - 25,000 UNIT in SODIUM CHLORIDE 495 ML IV SCH (14:30)
[2018-08-08] MEDS ORDERED: LIDOCAINE HCL 1%, 10 MG/ML (20ML VIAL) NR ONE (15:30)
--- NOTE | 2018-08-08 16:32 | OP ---
Operative Note - Note: Operative Date: 08/08/18 Pre-Operative Diagnosis: Right lower extremity ischemia Operation: Aortogram, RLE angiogram, SFA/Popliteal artery angioplasty, SFA stent , Popliteal artery stent. Findings: SFA 90% stenosis Popliteal stenosis 90% Post-Operative Diagnosis: Same as Pre-op Surgeon: William Cates Anesthesia: Fractional Estimated Blood Loss (mls): 50 Operative Report Dictated: Yes
[2018-08-08] MEDS: CLOPIDOGREL BISULFATE 75 MG TABLET (FP) PO SCH (17:59)
[2018-08-08] MEDS: amLODIPine BESYLATE 10 MG TABLET (FP) PO SCH (18:47)
[2018-08-08 20:13] LABS: ANION GAP 11 MMOL/L (8-16); BLOOD UREA NITROGEN 11 mg/dL (7-18); CALCIUM 8.1 mg/dL (8.5-10.1); CHLORIDE 101 mmol/L (98-107); CO2 27 mmol/L (21-32); CREATININE 0.6 mg/dL (0.55-1.3); GLUCOSE,RANDOM 130 mg/dL (74-106); POTASSIUM 3.8 mmol/L (3.5-5.1); SODIUM 138 mmol/L (136-145)
[2018-08-08] MEDS: MUPIROCIN 2% TOPICAL OINTMENT FOR DECOLONIZATION NS SCH (21:03)
[2018-08-08] MEDS ORDERED: CHLORHEXIDINE GLUCONATE 4% CLEANSER FOR DECOLONIZATION TP SCH ×2 (22:00)
[2018-08-09 05:58] LABS: BASO % 0.2 % (0-2.0); EOS % 0.3 % (0-4.5); HEMATOCRIT 30.1 % (32.4-45.2); HEMOGLOBIN 9.6 GM/dL (10.7-15.3); LYMPH % 15.3 % (8-40); MCH 26.8 pg (25.7-33.7); MCHC 32.1 g/dl (32.0-36.0); MEAN CELL VOLUME 83.6 fl (80-96); MEAN PLT VOLUME 8.1 fl (7.5-11.1); MONO % 9.8 % (3.8-10.2); NEUT % 74.4 % (42.8-82.8); PLATELET COUNT 241 K/MM3 (134-434); RBC 3.59 M/mm3 (3.60-5.2); RDW 15.4 % (11.6-15.6); WHITE BLOOD COUNT 7.8 K/mm3 (4.0-10.0)
[2018-08-09 06:07] LABS: SERUM IRON SATURATION 8 % (15-55); TOTAL IRON BINDING CAPACITY 236 ug/dL (250-450); UIBC 216 ug/dL (118-369)
[2018-08-09] MEDS: INSULIN SLIDING SCALE (NOVOLOG) 1 VIAL SQ SCH ×4 (06:22→22:29)
[2018-08-09 06:37] LABS: ALBUMIN 2.6 g/dl (3.4-5.0); ALK PHOS 52 U/L (45-117); ANION GAP 11 MMOL/L (8-16); BILIRUBIN,TOTAL 0.4 mg/dL (0.2-1); BLOOD UREA NITROGEN 9 mg/dL (7-18); CALCIUM 8.1 mg/dL (8.5-10.1); CHLORIDE 100 mmol/L (98-107); CO2 27 mmol/L (21-32); CREATININE 0.7 mg/dL (0.55-1.3); GLUCOSE,RANDOM 167 mg/dL (74-106); MAGNESIUM 1.7 mg/dL (1.8-2.4); PHOSPHOROUS 3.3 mg/dL (2.5-4.9); POTASSIUM 3.5 mmol/L (3.5-5.1); SGOT/AST 14 U/L (15-37); SGPT/ALT 15 U/L (13-61); SODIUM 138 mmol/L (136-145); TOT PROT 6.7 g/dl (6.4-8.2)
[2018-08-09] MEDS ORDERED: SODIUM CHLORIDE 1,000 ML IV SCH (06:45)
[2018-08-09] MEDS ORDERED: hydrALAZINE HCL 20 MG/ML VIAL IVPUSH ONE (07:39)
[2018-08-09] MEDS ORDERED: MAGNESIUM OXIDE 400 MG TABLET (FP) PO ONE (07:49)
--- NOTE | 2018-08-09 07:52 | PN ---
Progress Note (short form) - Note Progress Note: POD #1 Alert. Still c/o RLE (foot, great toe pain). Mild improvement. Still c/o right foot/toe pain. Pain managed with meds ordered. Denies n/v/f/c, numbness, tingling. Last Vital Signs Temp Pulse Resp BP Pulse Ox 98.4 F 72 19 177/84 H 100 08/09/18 06:00 08/09/18 06:00 08/09/18 06:00 08/09/18 06:00 08/08/18 21:00 CBC, BMP 08/09/18 05:30 08/09/18 05:30 Gen: mild discomfort ABD: soft. nt. nd LE: stab incision c/d/i. No hematoma. RLE warm, ischemic changes to right great toe. faint dopplerable DP, strong doppler signal to PT Problem List - Problems (1) Lower limb ischemia Assessment/Plan: Cont Plavix Pain management PRN Cont care per ICU No further planned Vascular intervention Dr. Cates made aware and agrees with plan as outlined above. On behalf of my attending, thank you for the opportunity to participate in your patient's care. Code(s): I99.8 - OTHER DISORDER OF CIRCULATORY SYSTEM
[2018-08-09] MEDS: LOSARTAN POTASSIUM 50 MG TABLET (FP) PO SCH (08:08)
[2018-08-09] MEDS ORDERED: SENNOSIDES 8.6MG TABLET (FP) PO SCH (10:00)
[2018-08-09] MEDS ORDERED: DOCUSATE SODIUM 100 MG CAPSULE (FP) PO SCH (10:00)
[2018-08-09] MEDS: MORPHINE SULFATE 2 MG/ML VIAL IVPUSH PRN ×3 (10:12→22:41)
[2018-08-09] MEDS: amLODIPine BESYLATE 10 MG TABLET (FP) PO SCH (10:19)
[2018-08-09] MEDS: CLOPIDOGREL BISULFATE 75 MG TABLET (FP) PO SCH (10:19)
--- NOTE | 2018-08-09 10:37 | PN ---
Physical Exam: SUBJECTIVE: Patient seen and examined at bedside this AM. c/o right lower extremity pain. POD#1 RLE angiogram, SFA/Popliteal artery angioplasty, SFA stent , Popliteal artery stent. Blood pressure 191/58 overnight. OBJECTIVE: Vital Signs Period Temp Pulse Resp BP Sys/Reyes Pulse Ox Last 24 Hr 98.0 F-98.8 F 54-74 18-21 133-195/50-99 95-100 GENERAL: AAOx3, NAD HEAD: NC/AT EYES:EOMI PERRLA ENT: MMM NECK: Trachea midline, full range of motion, supple. LUNGS: Dec BS at bases HEART: RRR No MRG S1S2 ABDOMEN: NDNT No HSM EXTREMITIES: DP pulses Right foot palpable, warmer to touch than yesterday. Dusky coloration still R toe. Sensation intact much improved than yesterday. Pain upon calf squeeze. DP pulses audible on doppler. NEUROLOGICAL: Cn 2-12 intact PSYCH: Normal mood, normal affect. Laboratory Results - last 24 hr 08/08/18 08/08/18 08/08/18 05:30 11:15 16:44 WBC RBC Hgb Hct MCV MCH MCHC RDW Plt Count MPV Absolute Neuts (auto) Neutrophils % Lymphocytes % Monocytes % Eosinophils % Basophils % Nucleated RBC % Sodium Potassium Chloride Carbon Dioxide Anion Gap BUN Creatinine Creat Clearance w eGFR POC Glucometer 208.18293 75.35284 Random Glucose Calcium Phosphorus Magnesium Iron 20 L TIBC 236 L Iron Saturation 8 L Transferrin 195 L Total Bilirubin AST ALT Alkaline Phosphatase Total Protein Albumin 08/08/18 08/09/18 08/09/18 17:30 04:52 05:30 WBC 7.8 RBC 3.59 L Hgb 9.6 L Hct 30.1 L MCV 83.6 MCH 26.8 MCHC 32.1 RDW 15.4 Plt Count 241 MPV 8.1 Absolute Neuts (auto) 5.8 Neutrophils % 74.4 Lymphocytes % 15.3 D Monocytes % 9.8 Eosinophils % 0.3 Basophils % 0.2 Nucleated RBC % 0 Sodium 138 Potassium 3.8 Chloride 101 Carbon Dioxide 27 Anion Gap 11 BUN 11 Creatinine 0.6 Creat Clearance w eGFR > 60 POC Glucometer 151.61802 Random Glucose 130 H Calcium 8.1 L Phosphorus Magnesium Iron TIBC Iron Saturation Transferrin Total Bilirubin AST ALT Alkaline Phosphatase Total Protein Albumin 08/09/18 05:30 WBC RBC Hgb Hct MCV MCH MCHC RDW Plt Count MPV Absolute Neuts (auto) Neutrophils % Lymphocytes % Monocytes % Eosinophils % Basophils % Nucleated RBC % Sodium 138 Potassium 3.5 Chloride 100 Carbon Dioxide 27 Anion Gap 11 BUN 9 Creatinine 0.7 Creat Clearance w eGFR > 60 POC Glucometer Random Glucose 167 H Calcium 8.1 L Phosphorus 3.3 Magnesium 1.7 L Iron TIBC Iron Saturation Transferrin Total Bilirubin 0.4 AST 14 L ALT 15 Alkaline Phosphatase 52 Total Protein 6.7 Albumin 2.6 L Active Medications Generic Name Dose Route Start Last Admin Trade Name Freq PRN Reason Stop Dose Admin Amlodipine Besylate 10 mg 08/08/18 18:00 08/09/18 10:19 Norvasc - PO 10 mg DAILY FLYNN Administration Chlorhexidine Gluconate 1 applic 08/08/18 22:00 08/08/18 22:00 Hibiclens For Decolonization - TP 1 applic HS FLYNN Administration Clopidogrel Bisulfate 75 mg 08/08/18 16:45 08/09/18 10:19 Plavix - PO 75 mg DAILY FLYNN Administration Docusate Sodium 100 mg 08/09/18 10:00 08/09/18 10:20 Colace - PO 100 mg BID FLYNN Administration Insulin Aspart 1 vial 08/08/18 07:00 08/09/18 06:22 Novolog Vial Sliding Scale - SQ Not Given ACHS [facility] Protocol Losartan Potassium 50 mg 08/08/18 11:00 08/09/18 08:08 Cozaar - PO 50 mg BID FLYNN Administration Morphine Sulfate 1 mg 08/07/18 22:25 08/09/18 10:12 Morphine Sulfate IVPUSH 1 mg Q3H PRN Administration PAIN LEVEL 7 - 10 Mupirocin 1 applic 08/08/18 22:00 08/08/18 21:03 Bactroban Ointment (For Decolonization) - NS 08/13/18 09:59 1 unit BID FLYNN Administration Ondansetron HCl 4 mg 08/08/18 14:07 Zofran Injection IVPUSH Q6H PRN NAUSEA AND/OR VOMITING Senna 1 tab 08/09/18 10:00 Senna - PO BID [facility] ASSESSMENT/PLAN: This is an 83 year old woman with a history of type 2 DM, HTN who presented to the ED with right foot pain. # Right foot ischemia - CTA: moderate to severe stenosis in right SFA, popliteal artery with occlusion of right popliteal artery from knee to proximal infrapopliteal arteries; moderate to severe stenosis in left SFA, popliteal artery, tibioperoneal trunk with occluded left peroneal artery; high grade stenosis at origin of left renal artery - heparin IV drip - POD#1--> Dr Adriana Cates: Aortogram, RLE angiogram, SFA/Popliteal artery angioplasty, SFA stent, Popliteal artery stent. - Plavix 75 mg po daily #. HTN - Losartan and Norvasc 10 mg -Increase Losartan to 100 w/ HCTZ 12.5 combo -Hydralazine PRN # Hyponatremia, mild - Resolved #. Type 2 DM - Metformin, Januvia held - Continue Novolog sliding scale Ucx- + for lactobacilus -Asymptomatic FEN No Fluids Monitor electrolytes Diabetic/Sodium Diet DVT ppx: Plavix Dispo: ICU Visit type - Emergency Visit Emergency Visit: Yes ED Registration Date: 08/07/18 Care time: The patient presented to the Emergency Department on the above date and was hospitalized for further evaluation of their emergent condition. - New Patient This patient is new to me today: No - Critical Care Critical Care patient: Yes Total Critical Care Time (in minutes): 35 Critical Care Statement: The care of this patient involved high complexity decision making to prevent further life threatening deterioration of the patient 's condition and/or to evaluate & treat vital organ system(s) failure or risk of failure. - Discharge Referral Referred to [facility] No
[2018-08-09] MEDS ORDERED: LOSARTAN 50MG/HCTZ 12.5MG 1 TAB (FP) PO ONE (12:30)
--- NOTE | 2018-08-09 12:32 | PN ---
Physical Exam: SUBJECTIVE: Patient seen and examined in the ICU. POD 1 s/p SFA and popliteal stent. Still c/o right foot/toe pain. pt hypertensive overnight OBJECTIVE: Vital Signs Period Temp Pulse Resp BP Sys/Reyes Pulse Ox Last 24 Hr 98.0 F-98.8 F 54-74 18-21 133-195/50-99 95-100 GENERAL: AOX3 NAD HEAD: NCAT EYES: Pupils equal, round and reactive to light, extraocular movements intact, sclera anicteric, conjunctiva clear. No lid lag. EARS, NOSE, THROAT: Oropharynx clear without exudates. MMM NECK: (-) lymphadenopathy, JVD, or masses. LUNGS: CTAB HEART: RRR, normal S1 and S2 without m/r/g ABDOMEN: Soft, NTND +BS, no guarding, no rebound, no masses. No hepatomegaly or splenomegaly. MUSCULOSKELETAL: Normal range of motion at all joints. No bony deformities or tenderness. UPPER EXTREMITIES: No peripheral edema. LOWER EXTREMITIES: DP pulse audible on doppler with green/black right toes. right foot warm, toes are still cool to touch. sensations intact. PT pulses heard on doppler of right foot NEUROLOGICAL: Cranial nerves II-XII intact. Normal speech. PSYCHIATRIC: Cooperative. Good eye contact. Appropriate mood and affect. Laboratory Results - last 24 hr 08/08/18 08/08/18 08/08/18 05:30 16:44 17:30 WBC RBC Hgb Hct MCV MCH MCHC RDW Plt Count MPV Absolute Neuts (auto) Neutrophils % Lymphocytes % Monocytes % Eosinophils % Basophils % Nucleated RBC % Sodium 138 Potassium 3.8 Chloride 101 Carbon Dioxide 27 Anion Gap 11 BUN 11 Creatinine 0.6 Creat Clearance w eGFR > 60 POC Glucometer 75.62702 Random Glucose 130 H Calcium 8.1 L Phosphorus Magnesium Iron 20 L TIBC 236 L Iron Saturation 8 L Transferrin 195 L Total Bilirubin AST ALT Alkaline Phosphatase Total Protein Albumin 08/09/18 08/09/18 08/09/18 04:52 05:30 05:30 WBC 7.8 RBC 3.59 L Hgb 9.6 L Hct 30.1 L MCV 83.6 MCH 26.8 MCHC 32.1 RDW 15.4 Plt Count 241 MPV 8.1 Absolute Neuts (auto) 5.8 Neutrophils % 74.4 Lymphocytes % 15.3 D Monocytes % 9.8 Eosinophils % 0.3 Basophils % 0.2 Nucleated RBC % 0 Sodium 138 Potassium 3.5 Chloride 100 Carbon Dioxide 27 Anion Gap 11 BUN 9 Creatinine 0.7 Creat Clearance w eGFR > 60 POC Glucometer 151.19532 Random Glucose 167 H Calcium 8.1 L Phosphorus 3.3 Magnesium 1.7 L Iron TIBC Iron Saturation Transferrin Total Bilirubin 0.4 AST 14 L ALT 15 Alkaline Phosphatase 52 Total Protein 6.7 Albumin 2.6 L Active Medications Generic Name Dose Route Start Last Admin Trade Name Freq PRN Reason Stop Dose Admin Amlodipine Besylate 10 mg 08/08/18 18:00 08/09/18 10:19 Norvasc - PO 10 mg DAILY FLYNN Administration Chlorhexidine Gluconate 1 applic 08/08/18 22:00 08/08/18 22:00 Hibiclens For Decolonization - TP 1 applic HS FLYNN Administration Clopidogrel Bisulfate 75 mg 08/08/18 16:45 08/09/18 10:19 Plavix - PO 75 mg DAILY FLYNN Administration Docusate Sodium 100 mg 08/09/18 10:00 08/09/18 10:20 Colace - PO 100 mg BID FLYNN Administration HCTZ/Losartan Potassium 2 tab 08/10/18 10:00 Hyzaar - PO DAILY FLYNN HCTZ/Losartan Potassium 1 tab 08/09/18 12:02 Hyzaar - PO 08/09/18 12:03 ONCE ONE Insulin Aspart 1 vial 08/08/18 07:00 08/09/18 06:22 Novolog Vial Sliding Scale - SQ Not Given ACHS [facility] Protocol Morphine Sulfate 1 mg 08/07/18 22:25 08/09/18 10:12 Morphine Sulfate IVPUSH 1 mg Q3H PRN Administration PAIN LEVEL 7 - 10 Mupirocin 1 applic 08/08/18 22:00 08/08/18 21:03 Bactroban Ointment (For Decolonization) - NS 08/13/18 09:59 1 unit BID FLYNN Administration Ondansetron HCl 4 mg 08/08/18 14:07 Zofran Injection IVPUSH Q6H PRN NAUSEA AND/OR VOMITING Senna 1 tab 08/09/18 10:00 Senna - PO BID [facility] ASSESSMENT/PLAN: 83 year old female PMHx of NIDDMII, HTN, GERD, overactive bladder who presented for right foot pain and was found to have acute limb ischemia of the RLE. Patient started on Heparin drip and admitted to ICU for further monitoring and management. POD 1 s/p SFA and popliteal stent. VASCULAR Acute Limb Ischemia POD 1 s/p SFA and popliteal stent. DP pulse audible on doppler -dcd Heparin drip -plavix started yesterday -Pain control with Morphine 1mg Q3H PRN -Lipid panel and A1C 9.4 CARDIO HTN Urgency - unctl -Likely 2/2 noncompliance with medication -received 10mg IVP and 100mg PO of Labetolol in the ED -norvasc 10 -increase losartan to 100 w/ HCTZ 12.5 combo -May give Hydralazine PRN -monitor BP ENDOCRINOLOGY NIDDMII uncontrolled -A1C 9.4 -BGM -ISS HEMATOLOGY Normocytic Anemia -Unclear etiology, possibly due to inflammatory state -f/u iron studies -Stool Guaic negative -Continue to monitor CBC GASTROENTEROLOGY GERD -Continue home medication Prilosec once medications confirmed UROLOGY Overactive bladder -Continue Oxybutynin 5mg po once medications are confirmed NEPHROLOGY Hypoalbuminemia -Likely multifactorial as patient has 1+ Proteins in urine and now in acute inflammatory state with noncompliance to diabetic and anti-htn medications. -Continue to monitor -Nutrition/Palliative Nurse consult, as per primary team Mild Hyponatremia -Likely secondary to inflammatory state and decrease PO -now resolved ID Ucx - lactobacilus, abx per primary team Bcx neg FEN -no IVF -replete lytes prn -Na/DM ctl diet ppx -plavix started yesterday, dcd heparin gtt -Prilosec once medication confirmed for GI Disposition -Full code POD 1 s/p SFA and popliteal stent. pt stable and ready for transfer to [facility]. further care per primary team/PCP Visit type - Emergency Visit Emergency Visit: Yes ED Registration Date: 08/07/18 Care time: The patient presented to the Emergency Department on the above date and was hospitalized for further evaluation of their emergent condition. - New Patient This patient is new to me today: Yes Date on this admission: 08/09/18 - Critical Care Critical Care patient: Yes Total Critical Care Time (in minutes): 37 Critical Care Statement: The care of this patient involved high complexity decision making to prevent further life threatening deterioration of the patient 's condition and/or to evaluate & treat vital organ system(s) failure or risk of failure.
--- NOTE | 2018-08-09 12:57 | PN ---
Teaching Attending Note Name of Resident: London Pope ATTENDING PHYSICIAN STATEMENT I saw and evaluated the patient. I reviewed the resident's note and discussed the case with the resident. I agree with the resident's findings and plan as documented. SUBJECTIVE: OBJECTIVE: Vital Signs Period Temp Pulse Resp BP Sys/Reyes Pulse Ox Last 24 Hr 98.0 F-98.8 F 54-74 18-21 133-195/50-99 95-100 Laboratory Results - last 24 hr 08/08/18 08/08/18 08/08/18 05:30 16:44 17:30 WBC RBC Hgb Hct MCV MCH MCHC RDW Plt Count MPV Absolute Neuts (auto) Neutrophils % Lymphocytes % Monocytes % Eosinophils % Basophils % Nucleated RBC % Sodium 138 Potassium 3.8 Chloride 101 Carbon Dioxide 27 Anion Gap 11 BUN 11 Creatinine 0.6 Creat Clearance w eGFR > 60 POC Glucometer 75.16249 Random Glucose 130 H Calcium 8.1 L Phosphorus Magnesium Iron 20 L TIBC 236 L Iron Saturation 8 L Transferrin 195 L Total Bilirubin AST ALT Alkaline Phosphatase Total Protein Albumin 08/09/18 08/09/18 08/09/18 04:52 05:30 05:30 WBC 7.8 RBC 3.59 L Hgb 9.6 L Hct 30.1 L MCV 83.6 MCH 26.8 MCHC 32.1 RDW 15.4 Plt Count 241 MPV 8.1 Absolute Neuts (auto) 5.8 Neutrophils % 74.4 Lymphocytes % 15.3 D Monocytes % 9.8 Eosinophils % 0.3 Basophils % 0.2 Nucleated RBC % 0 Sodium 138 Potassium 3.5 Chloride 100 Carbon Dioxide 27 Anion Gap 11 BUN 9 Creatinine 0.7 Creat Clearance w eGFR > 60 POC Glucometer 151.94460 Random Glucose 167 H Calcium 8.1 L Phosphorus 3.3 Magnesium 1.7 L Iron TIBC Iron Saturation Transferrin Total Bilirubin 0.4 AST 14 L ALT 15 Alkaline Phosphatase 52 Total Protein 6.7 Albumin 2.6 L Current Medications Generic Name Dose Route Start Last Admin Trade Name Freq PRN Reason Stop Dose Admin Amlodipine Besylate 10 mg 08/08/18 18:00 08/09/18 10:19 Norvasc - PO 10 mg DAILY FLYNN Administration Chlorhexidine Gluconate 1 applic 08/08/18 22:00 08/08/18 22:00 Hibiclens For Decolonization - TP 1 applic HS FLYNN Administration Clopidogrel Bisulfate 75 mg 08/08/18 16:45 08/09/18 10:19 Plavix - PO 75 mg DAILY FLYNN Administration Docusate Sodium 100 mg 08/09/18 10:00 08/09/18 10:20 Colace - PO 100 mg BID FLYNN Administration HCTZ/Losartan Potassium 2 tab 08/10/18 10:00 Hyzaar - PO DAILY FLYNN Insulin Aspart 1 vial 08/08/18 07:00 08/09/18 12:28 Novolog Vial Sliding Scale - SQ 4 units ACHS FLYNN Administration Protocol Morphine Sulfate 1 mg 08/07/18 22:25 08/09/18 10:12 Morphine Sulfate IVPUSH 1 mg Q3H PRN Administration PAIN LEVEL 7 - 10 Mupirocin 1 applic 08/08/18 22:00 08/08/18 21:03 Bactroban Ointment (For Decolonization) - NS 08/13/18 09:59 1 unit BID FLYNN Administration Ondansetron HCl 4 mg 08/08/18 14:07 Zofran Injection IVPUSH Q6H PRN NAUSEA AND/OR VOMITING Senna 1 tab 08/09/18 10:00 Senna - PO BID [facility] ASSESSMENT AND PLAN:
[2018-08-09] MEDS: MUPIROCIN 2% TOPICAL OINTMENT FOR DECOLONIZATION NS SCH (12:58)
[2018-08-09] MEDS ORDERED: PT OWN MED DRAWER 7, Y5N ONE ×2 (13:13→14:35)
--- NOTE | 2018-08-09 13:27 | PN ---
Teaching Attending Note Name of Resident: Manolo Quinones ATTENDING PHYSICIAN STATEMENT I saw and evaluated the patient. I reviewed the resident's note and discussed the case with the resident. I agree with the resident's findings and plan as documented. SUBJECTIVE: Patient seen and examined in the ICU. POD #1 SFA and popliteal stent. Still with some right foot/toe pain. Denies CP or SOB. OBJECTIVE: Intake & Output 08/06/18 08/07/18 08/08/18 08/09/18 23:59 23:59 23:59 23:59 Intake Total 952 659 Output Total 50 400 Balance 902 259 Weight 151 lb 3.794 oz 151 lb 3.794 oz 151 lb Last Vital Signs Temp Pulse Resp BP Pulse Ox 99.8 F H 76 19 126/57 L 100 08/09/18 13:17 08/09/18 13:17 08/09/18 13:17 08/09/18 13:17 08/09/18 09:00 Active Medications Amlodipine Besylate (Norvasc -) 10 mg PO DAILY [facility] Last Admin: 08/09/18 10:19 Dose: 10 mg Chlorhexidine Gluconate (Hibiclens For Decolonization -) 1 applic TP HS [facility] Last Admin: 08/08/18 22:00 Dose: 1 applic Clopidogrel Bisulfate (Plavix -) 75 mg PO DAILY [facility] Last Admin: 08/09/18 10:19 Dose: 75 mg Docusate Sodium (Colace -) 100 mg PO BID [facility] Last Admin: 08/09/18 10:20 Dose: 100 mg HCTZ/Losartan Potassium (Hyzaar -) 2 tab PO DAILY [facility] Insulin Aspart (Novolog Vial Sliding Scale -) 1 vial SQ ACHS [facility]; Protocol Last Admin: 08/09/18 12:28 Dose: 4 units Morphine Sulfate (Morphine Sulfate) 1 mg IVPUSH Q3H PRN PRN Reason: PAIN LEVEL 7 - 10 Last Admin: 08/09/18 10:12 Dose: 1 mg Mupirocin (Bactroban Ointment (For Decolonization) -) 1 applic NS BID [facility] Stop: 08/13/18 09:59 Last Admin: 08/09/18 12:58 Dose: 1 unit Ondansetron HCl (Zofran Injection) 4 mg IVPUSH Q6H PRN PRN Reason: NAUSEA AND/OR VOMITING Senna (Senna -) 1 tab PO BID FLYNN GENERAL: AOX3 NAD HEAD: NCAT EYES: Pupils equal, round and reactive to light, extraocular movements intact, sclera anicteric, conjunctiva clear. No lid lag. EARS, NOSE, THROAT: Oropharynx clear without exudates. MMM NECK: (-) lymphadenopathy, JVD, or masses. LUNGS: CTAB HEART: RRR, normal S1 and S2 without m/r/g ABDOMEN: Soft, NTND +BS, no guarding, no rebound, no masses. No hepatomegaly or splenomegaly. MUSCULOSKELETAL: Normal range of motion at all joints. No bony deformities or tenderness. UPPER EXTREMITIES: No peripheral edema. LOWER EXTREMITIES: DP pulse audible on doppler with green/black right toes. right foot warm, toes are still cool to touch. sensations intact. PT pulses heard on doppler of right foot NEUROLOGICAL: Non-focal PSYCHIATRIC: Cooperative. Good eye contact. Appropriate mood and affect. Laboratory Results - last 24 hr 08/08/18 08/08/18 08/08/18 05:30 16:44 17:30 WBC RBC Hgb Hct MCV MCH MCHC RDW Plt Count MPV Absolute Neuts (auto) Neutrophils % Lymphocytes % Monocytes % Eosinophils % Basophils % Nucleated RBC % Sodium 138 Potassium 3.8 Chloride 101 Carbon Dioxide 27 Anion Gap 11 BUN 11 Creatinine 0.6 Creat Clearance w eGFR > 60 POC Glucometer 75.90272 Random Glucose 130 H Calcium 8.1 L Phosphorus Magnesium Iron 20 L TIBC 236 L Iron Saturation 8 L Transferrin 195 L Total Bilirubin AST ALT Alkaline Phosphatase Total Protein Albumin 08/09/18 08/09/18 08/09/18 04:52 05:30 05:30 WBC 7.8 RBC 3.59 L Hgb 9.6 L Hct 30.1 L MCV 83.6 MCH 26.8 MCHC 32.1 RDW 15.4 Plt Count 241 MPV 8.1 Absolute Neuts (auto) 5.8 Neutrophils % 74.4 Lymphocytes % 15.3 D Monocytes % 9.8 Eosinophils % 0.3 Basophils % 0.2 Nucleated RBC % 0 Sodium 138 Potassium 3.5 Chloride 100 Carbon Dioxide 27 Anion Gap 11 BUN 9 Creatinine 0.7 Creat Clearance w eGFR > 60 POC Glucometer 151.74418 Random Glucose 167 H Calcium 8.1 L Phosphorus 3.3 Magnesium 1.7 L Iron TIBC Iron Saturation Transferrin Total Bilirubin 0.4 AST 14 L ALT 15 Alkaline Phosphatase 52 Total Protein 6.7 Albumin 2.6 L ASSESSMENT/PLAN: POD #1 SFA and popliteal stent NIDDM HTN GERD Overactive bladder Acute Limb Ischemia Heparin drip per protocol Pain control O2 as needed Incentive Spirometer Glycemic control Titrate BP Meds PO as tolerated Monitor dopplers Floor Dr Dietrich
--- NOTE | 2018-08-09 14:13 | PN ---
Progress Note (short form) - Note Progress Note: ANESTHESIOLOGY 83F s/p rightl leg angiogram with SFA and popliteal balloon angioplasty and stent placement under general anesthesia POD #1. No acute complaints, pain 5/10 at times, none right now and tolerable. Denies N/V. Vital Signs Temperature 99.8 F H 08/09/18 13:17 Pulse Rate 76 08/09/18 13:17 Respiratory Rate 19 08/09/18 13:17 Blood Pressure 126/57 L 08/09/18 13:17 O2 Sat by Pulse Oximetry (%) 100 08/09/18 09:00 Active Medications Amlodipine Besylate (Norvasc -) 10 mg PO DAILY [facility] Last Admin: 08/09/18 10:19 Dose: 10 mg Chlorhexidine Gluconate (Hibiclens For Decolonization -) 1 applic TP HS [facility] Last Admin: 08/08/18 22:00 Dose: 1 applic Clopidogrel Bisulfate (Plavix -) 75 mg PO DAILY [facility] Last Admin: 08/09/18 10:19 Dose: 75 mg Docusate Sodium (Colace -) 100 mg PO BID [facility] Last Admin: 08/09/18 10:20 Dose: 100 mg HCTZ/Losartan Potassium (Hyzaar -) 2 tab PO DAILY [facility] Insulin Aspart (Novolog Vial Sliding Scale -) 1 vial SQ ACHS [facility]; Protocol Last Admin: 08/09/18 12:28 Dose: 4 units Morphine Sulfate (Morphine Sulfate) 1 mg IVPUSH Q3H PRN PRN Reason: PAIN LEVEL 7 - 10 Last Admin: 08/09/18 10:12 Dose: 1 mg Mupirocin (Bactroban Ointment (For Decolonization) -) 1 applic NS BID [facility] Stop: 08/13/18 09:59 Last Admin: 08/09/18 12:58 Dose: 1 unit Ondansetron HCl (Zofran Injection) 4 mg IVPUSH Q6H PRN PRN Reason: NAUSEA AND/OR VOMITING Senna (Senna -) 1 tab PO BID [facility] Gen: Awake, alert No apparent anesthesia complications. Pain well controlled. Continue management as per primary team
[2018-08-09] MEDS ORDERED: ACETAMINOPHEN 325 MG TABLET (FP) PO PRN ×2 (14:32→20:13)
[2018-08-09] MEDS ORDERED: FLU VACCINE QUAD 60 MCG/0.5 ML (MDV 18-19) IM ONE (20:30)
[2018-08-09] MEDS: LOSARTAN 50MG/HCTZ 12.5MG 1 TAB (FP) PO SCH (22:28)
[2018-08-09] MEDS: DOCUSATE SODIUM 100 MG CAPSULE (FP) PO SCH (22:29)
[2018-08-09] MEDS: SENNOSIDES 8.6MG TABLET (FP) PO SCH (22:29)
[2018-08-10] MEDS: LOSARTAN POTASSIUM 50 MG TABLET (FP) PO SCH (06:18)
[2018-08-10] MEDS: INSULIN SLIDING SCALE (NOVOLOG) 1 VIAL SQ SCH ×4 (06:29→21:06)
[2018-08-10] MEDS ORDERED: PT OWN MED DRAWER 7, Y5N ONE (09:51)
[2018-08-10] MEDS: LOSARTAN 50MG/HCTZ 12.5MG 1 TAB (FP) PO SCH ×2 (09:56→21:05)
[2018-08-10] MEDS: CLOPIDOGREL BISULFATE 75 MG TABLET (FP) PO SCH (09:56)
[2018-08-10] MEDS: DOCUSATE SODIUM 100 MG CAPSULE (FP) PO SCH ×2 (09:56→21:05)
[2018-08-10] MEDS: SENNOSIDES 8.6MG TABLET (FP) PO SCH ×2 (09:56→21:05)
[2018-08-10] MEDS: amLODIPine BESYLATE 10 MG TABLET (FP) PO SCH (09:56)
[2018-08-10] MEDS ORDERED: FLU VACCINE QUAD 60 MCG/0.5 ML (MDV 18-19) IM ONE (10:00)
[2018-08-10] MEDS ORDERED: LOSARTAN 50MG/HCTZ 12.5MG 1 TAB (FP) PO SCH (10:00)
[2018-08-10] MEDS ORDERED: INSULIN (NOVOLOG) ASPART 100 UNITS/ML 10ML VIAL ONE ×2 (12:11→20:54)
[2018-08-10] MEDS: MORPHINE SULFATE 2 MG/ML VIAL IVPUSH PRN ×2 (15:42→23:56)
--- NOTE | 2018-08-10 17:40 | PN ---
Teaching Attending Note ATTENDING PHYSICIAN STATEMENT I saw and evaluated the patient. I reviewed the resident's note and discussed the case with the resident. I agree with the resident's findings and plan as documented. SUBJECTIVE: She is complaining of the toe R toe pain. OBJECTIVE: Last Vital Signs Temp Pulse Resp BP Pulse Ox 98.9 F 74 20 154/62 99 08/10/18 15:13 08/10/18 15:13 08/10/18 15:13 08/10/18 15:13 08/09/18 21:00 in mild distress MMM No occular discharge [id number] CTAB ABD: BS+ NT/ND EXT:r FIRST TOE IS warm, and per HS it has improved from yesterday, I could not get the DP B/L Home Medications Medication Instructions Recorded Losartan Potassium [Cozaar -] 50 mg PO BID 08/07/18 Omeprazole Magnesium [Prilosec Otc] 20 mg PO DAILY 08/07/18 Oxybutynin Chloride [Oxybutynin 5 mg PO DAILY 08/07/18 Chloride ER] Sitagliptin Phos/Metformin HCl 1 each PO BID 08/07/18 [Janumet 50-1,000 mg Tablet] Current Medications Generic Name Dose Route Start Last Admin Trade Name Freq PRN Reason Stop Dose Admin Acetaminophen 650 mg 08/09/18 20:13 Tylenol - PO Q4H PRN PAIN LEVEL 6-10 Amlodipine Besylate 10 mg 08/10/18 10:00 08/10/18 09:56 Norvasc - PO 10 mg DAILY FLYNN Administration Clopidogrel Bisulfate 75 mg 08/10/18 10:00 08/10/18 09:56 Plavix - PO 75 mg DAILY FLYNN Administration Docusate Sodium 100 mg 08/09/18 22:00 08/10/18 09:56 Colace - PO 100 mg BID FLYNN Administration HCTZ/Losartan Potassium 1 tab 08/09/18 22:00 08/10/18 09:56 Hyzaar - PO 1 tab BID FLYNN Administration Insulin Aspart 1 vial 08/09/18 22:00 08/10/18 17:12 Novolog Vial Sliding Scale - SQ 2 units ACHS FLYNN Administration Protocol Morphine Sulfate 1 mg 08/09/18 20:13 08/10/18 15:42 Morphine Sulfate IVPUSH 1 mg Q3H PRN Administration PAIN LEVEL 7 - 10 Ondansetron HCl 4 mg 08/09/18 20:13 Zofran Injection IVPUSH Q6H PRN NAUSEA AND/OR VOMITING Senna 1 tab 08/09/18 22:00 08/10/18 09:56 Senna - PO 1 tab BID FLYNN Administration ASSESSMENT AND PLAN: 83 Y/O W W PVD, IDDM, HTN, P/W pain intthe r foot, found to have acute ischemia , underwent who presented to the ED with right foot pain now POD#2 Aortogram, RLE angiogram, SFA/Popliteal artery angioplasty, SFA stent, Popliteal artery stent.Per team the flow has improved and per vsacular no further vascular intervention indicated at this time. PVD: C/W plavix/ statin, will discuss need for DAP with vascular will also consider adding imdur to BP medication as it is vascodilator and may help with the PVD C/W pain control, can give tylenol 3 at this time as it is acute phase pain as on oipoids, will start on bowel regimen PT for evaluation of patient mobility htn: on losartan, HCTZ CCB, still hypertensive, will add imdur to BP medication DM; C/W Current management FC DVT PPX: LOVENOX SQ she is on PPI at home will C/W home medication Dispo pending PT recs.
--- NOTE | 2018-08-10 21:14 | PN ---
Physical Exam: SUBJECTIVE: Patient seen and examined at bedside. C/o burning sensation in her left foot. Denies chest pain or shortness of breath. OBJECTIVE: Vital Signs Period Temp Pulse Resp BP Sys/Reyes Pulse Ox Last 24 Hr 98.7 F-99.2 F 73-79 18-20 134-154/62-74 GENERAL: Awak Alert Pleasant HEAD: NC/AT. EYES: PERRLA EOMI ENT: MMM NECK: SUPPLE LUNGS: Dec BS at bases HEART: RRR ABDOMEN: NDNT No HSM BS+ EXTREMITIES: Right big toe dusky in color, 3rd and 4th toes R foot also dusky. Sensation to touch intact. NO hair appreciated, DP Faint B/L, warm to touch. NEUROLOGICAL: Cranial nerves II through XII grossly intact. Normal speech, gait not observed. PSYCH: Normal mood, normal affect. SKIN: Warm, dry, normal turgor, no rashes or lesions noted Laboratory Results - last 24 hr 08/09/18 08/10/18 08/10/18 22:25 06:28 12:01 POC Glucometer 79 153 231 08/10/18 16:26 POC Glucometer 177 Active Medications Generic Name Dose Route Start Last Admin Trade Name Freq PRN Reason Stop Dose Admin Acetaminophen 650 mg 08/09/18 20:13 Tylenol - PO Q4H PRN PAIN LEVEL 6-10 Amlodipine Besylate 10 mg 08/10/18 10:00 08/10/18 09:56 Norvasc - PO 10 mg DAILY FLYNN Administration Clopidogrel Bisulfate 75 mg 08/10/18 10:00 08/10/18 09:56 Plavix - PO 75 mg DAILY FLYNN Administration Docusate Sodium 100 mg 08/09/18 22:00 08/10/18 21:05 Colace - PO 100 mg BID FLYNN Administration HCTZ/Losartan Potassium 1 tab 08/09/18 22:00 08/10/18 21:05 Hyzaar - PO 1 tab BID FLYNN Administration Insulin Aspart 1 vial 08/09/18 22:00 08/10/18 21:06 Novolog Vial Sliding Scale - SQ 4 units ACHS FLYNN Administration Protocol Morphine Sulfate 1 mg 08/09/18 20:13 08/10/18 15:42 Morphine Sulfate IVPUSH 1 mg Q3H PRN Administration PAIN LEVEL 7 - 10 Ondansetron HCl 4 mg 08/09/18 20:13 Zofran Injection IVPUSH Q6H PRN NAUSEA AND/OR VOMITING Senna 1 tab 08/09/18 22:00 08/10/18 21:05 Senna - PO 1 tab BID FLYNN Administration ASSESSMENT/PLAN: This is an 83 year old woman with a history of type 2 DM, HTN who presented to the ED with right foot pain. 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 - Plavix 75 mg po daily # HTN - Norvasc 10 mg -Losartan to 100 w/ HCTZ 12.5 combo -Hydralazine PRN #. Type 2 DM - Metformin, Januvia held - Continue Novolog sliding scale Ucx- + for lactobacilus -Asymptomatic FEN No Fluids Monitor electrolytes Diabetic/Sodium Diet DVT ppx: Plavix Dispo: Med-surg Visit type - Emergency Visit Emergency Visit: Yes ED Registration Date: 08/07/18 Care time: The patient presented to the Emergency Department on the above date and was hospitalized for further evaluation of their emergent condition. - New Patient This patient is new to me today: No - Critical Care Critical Care patient: No - Discharge Referral Referred to [facility] No
[2018-08-11] MEDS: INSULIN SLIDING SCALE (NOVOLOG) 1 VIAL SQ SCH ×4 (06:51→22:14)
[2018-08-11 08:18] LABS: HEMATOCRIT 30.2 % (32.4-45.2); HEMOGLOBIN 9.7 GM/dL (10.7-15.3); MCH 26.7 pg (25.7-33.7); MCHC 32.1 g/dl (32.0-36.0); MEAN CELL VOLUME 83.2 fl (80-96); MEAN PLT VOLUME 7.9 fl (7.5-11.1); PLATELET COUNT 271 K/MM3 (134-434); RBC 3.63 M/mm3 (3.60-5.2); RDW 15.7 % (11.6-15.6)
[2018-08-11 09:05] LABS: ANION GAP 9 MMOL/L (8-16); BLOOD UREA NITROGEN 13 mg/dL (7-18); CALCIUM 8.6 mg/dL (8.5-10.1); CHLORIDE 97 mmol/L (98-107); CO2 28 mmol/L (21-32); CREATININE 0.7 mg/dL (0.55-1.3); GLUCOSE,RANDOM 155 mg/dL (74-106); MAGNESIUM 1.7 mg/dL (1.8-2.4); PHOSPHOROUS 3.4 mg/dL (2.5-4.9); POTASSIUM 3.7 mmol/L (3.5-5.1); SODIUM 134 mmol/L (136-145)
--- NOTE | 2018-08-11 09:39 | PN ---
Teaching Attending Note Name of Resident: London Pope ATTENDING PHYSICIAN STATEMENT I saw and evaluated the patient. I reviewed the resident's note and discussed the case with the resident. I agree with the resident's findings and plan as documented. SUBJECTIVE: OBJECTIVE: s1 and s2 RRR Lungs CTA with good air entry no edema discolouration of toes ASSESSMENT AND PLAN: This is an 83 year old woman with a history of type 2 DM, HTN admitted for Right foot ischemia. # Right foot ischemia s/p Popliteal artery stent. - clopidogrel 75 mg po daily - will start the patient on heparin drip for now - will consider NOAC if ok with vascular surgery # HTN - amlodipine 10 mg -Losartan to 100mg w/ HCTZ 12.5mg #. Type 2 DM - Metformin, sitagliptin held - Continue Novolog sliding scale Ucx- + for lactobacilus -Asymptomatic FEN No Fluids Monitor electrolytes Diabetic/Sodium Diet DVT ppx: Plavix
[2018-08-11] MEDS: SENNOSIDES 8.6MG TABLET (FP) PO SCH ×2 (10:05→22:14)
[2018-08-11] MEDS: DOCUSATE SODIUM 100 MG CAPSULE (FP) PO SCH ×2 (10:05→22:14)
[2018-08-11] MEDS: amLODIPine BESYLATE 10 MG TABLET (FP) PO SCH (10:05)
[2018-08-11] MEDS: CLOPIDOGREL BISULFATE 75 MG TABLET (FP) PO SCH (10:05)
[2018-08-11] MEDS: LOSARTAN 50MG/HCTZ 12.5MG 1 TAB (FP) PO SCH ×2 (10:05→22:14)
--- NOTE | 2018-08-11 10:27 | PN ---
Physical Exam: SUBJECTIVE: Patient seen and examined today at bedside. C/o severe right foot pain, Right large toe dark in color as well as 4th and 5th toe right foot. Vascular surgery contacted promptly and spoken with. Agree with heparin drip, nothing much more to do from vascular surgery standpoint in light of pt's severe PVD. POD#3. OBJECTIVE: Vital Signs Period Temp Pulse Resp BP Sys/Reyes Pulse Ox Last 24 Hr 98.7 F-99.2 F 74-80 18-20 140-160/62-72 99-99 GENERAL: AAOx3 c/o right foot pain HEAD: NC/AT EYES: EOMI PERRLA ENT: Ears normal, nares patent, oropharynx clear without exudates, moist mucous membranes. NECK: Trachea midline, full range of motion, supple. LUNGS: Dec Bases HEART: RRR, ABDOMEN: NDNT No HSM. EXTREMITIES: Right large, 4th and 5th toes bluish/black in color, cool to touch , sensation decreased. NEUROLOGICAL: CN 2-12 intact PSYCH: Normal mood, normal affect. Laboratory Results - last 24 hr 08/10/18 08/10/18 08/10/18 12:01 16:26 21:00 WBC RBC Hgb Hct MCV MCH MCHC RDW Plt Count MPV Sodium Potassium Chloride Carbon Dioxide Anion Gap BUN Creatinine Creat Clearance w eGFR POC Glucometer 231 177 237 Random Glucose Calcium Phosphorus Magnesium 08/11/18 08/11/18 08/11/18 06:49 07:45 07:45 WBC 7.0 RBC 3.63 Hgb 9.7 L Hct 30.2 L MCV 83.2 MCH 26.7 MCHC 32.1 RDW 15.7 H Plt Count 271 MPV 7.9 Sodium 134 L Potassium 3.7 Chloride 97 L Carbon Dioxide 28 Anion Gap 9 BUN 13 Creatinine 0.7 Creat Clearance w eGFR > 60 POC Glucometer 184 Random Glucose 155 H Calcium 8.6 Phosphorus 3.4 Magnesium 1.7 L Active Medications Generic Name Dose Route Start Last Admin Trade Name Freq PRN Reason Stop Dose Admin Acetaminophen 650 mg 08/09/18 20:13 Tylenol - PO Q4H PRN PAIN LEVEL 6-10 Amlodipine Besylate 10 mg 08/10/18 10:00 08/11/18 10:05 Norvasc - PO 10 mg DAILY FLYNN Administration Clopidogrel Bisulfate 75 mg 08/10/18 10:00 08/11/18 10:05 Plavix - PO 75 mg DAILY FLYNN Administration Docusate Sodium 100 mg 08/09/18 22:00 08/11/18 10:05 Colace - PO 100 mg BID FLYNN Administration HCTZ/Losartan Potassium 1 tab 08/09/18 22:00 08/11/18 10:05 Hyzaar - PO 1 tab BID FLYNN Administration Insulin Aspart 1 vial 08/09/18 22:00 08/11/18 06:51 Novolog Vial Sliding Scale - SQ 2 units ACHS FLYNN Administration Protocol Morphine Sulfate 1 mg 08/09/18 20:13 08/10/18 23:56 Morphine Sulfate IVPUSH 1 mg Q3H PRN Administration PAIN LEVEL 7 - 10 Ondansetron HCl 4 mg 08/09/18 20:13 Zofran Injection IVPUSH Q6H PRN NAUSEA AND/OR VOMITING Senna 1 tab 08/09/18 22:00 08/11/18 10:05 Senna - PO 1 tab BID FLYNN Administration ASSESSMENT/PLAN: This is an 83 year old woman with a history of type 2 DM, HTN who presented to the ED with right foot pain. 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 - Plavix 75 mg po daily # HTN - Norvasc 10 mg -Losartan to 100 w/ HCTZ 12.5 combo -Hydralazine PRN #. Type 2 DM - Metformin, Januvia held - Continue Novolog sliding scale Ucx- + for lactobacilus -Asymptomatic #FEN No Fluids Monitor electrolytes Diabetic/Sodium Diet DVT ppx: Heparin gtt started this morning Dispo: Med-surg Visit type - Emergency Visit Emergency Visit: Yes ED Registration Date: 08/07/18 Care time: The patient presented to the Emergency Department on the above date and was hospitalized for further evaluation of their emergent condition. - New Patient This patient is new to me today: No - Critical Care Critical Care patient: No - Discharge Referral Referred to [facility] Med P.C[facility] No
[2018-08-11] MEDS ORDERED: HEPARIN NA (PORCINE) 5,000 UNITS/ML 1ML VIAL IVPUSH PRN (10:28)
[2018-08-11] MEDS: HEPARIN - 25,000 UNIT in SODIUM CHLORIDE 495 ML IV SCH (12:16)
[2018-08-11 12:45] LABS: INR 1.17 (0.83-1.09); PROTHROMBIN TIME (PATIENT) 13.8 SEC (9.7-13.0)
[2018-08-11 12:47] LABS: ACTIVATED PTT 28.3 SECONDS (25.2-36.5)
[2018-08-11] MEDS: MORPHINE SULFATE 2 MG/ML VIAL IVPUSH PRN (17:46)
[2018-08-11 18:39] LABS: INR 1.13 (0.83-1.09); PROTHROMBIN TIME (PATIENT) 13.4 SEC (9.7-13.0)
[2018-08-11 18:41] LABS: ACTIVATED PTT 29.2 SECONDS (25.2-36.5)
[2018-08-11] MEDS ORDERED: INSULIN (NOVOLOG) ASPART 100 UNITS/ML 10ML VIAL ONE (21:32)
[2018-08-12] MEDS: INSULIN SLIDING SCALE (NOVOLOG) 1 VIAL SQ SCH ×4 (06:28→21:54)
[2018-08-12 07:44] LABS: HEMATOCRIT 29.5 % (32.4-45.2); HEMOGLOBIN 9.4 GM/dL (10.7-15.3); MEAN CELL VOLUME 84.2 fl (80-96); MEAN PLT VOLUME 7.5 fl (7.5-11.1); PLATELET COUNT 302 K/MM3 (134-434); RDW 15.2 % (11.6-15.6); WHITE BLOOD COUNT 6.9 K/mm3 (4.0-10.0)
[2018-08-12 09:09] LABS: ANION GAP 11 MMOL/L (8-16); BLOOD UREA NITROGEN 19 mg/dL (7-18); CALCIUM 8.2 mg/dL (8.5-10.1); CHLORIDE 98 mmol/L (98-107); CO2 29 mmol/L (21-32); CREATININE 0.8 mg/dL (0.55-1.3); GLUCOSE,RANDOM 150 mg/dL (74-106); MAGNESIUM 1.7 mg/dL (1.8-2.4); PHOSPHOROUS 3.6 mg/dL (2.5-4.9); POTASSIUM 3.5 mmol/L (3.5-5.1); SODIUM 137 mmol/L (136-145)
[2018-08-12] MEDS: SENNOSIDES 8.6MG TABLET (FP) PO SCH ×2 (09:23→21:54)
[2018-08-12] MEDS: DOCUSATE SODIUM 100 MG CAPSULE (FP) PO SCH ×2 (09:23→21:53)
[2018-08-12] MEDS: LOSARTAN 50MG/HCTZ 12.5MG 1 TAB (FP) PO SCH ×2 (09:23→21:53)
[2018-08-12] MEDS: amLODIPine BESYLATE 10 MG TABLET (FP) PO SCH (09:23)
[2018-08-12] MEDS: CLOPIDOGREL BISULFATE 75 MG TABLET (FP) PO SCH (09:23)
--- NOTE | 2018-08-12 10:13 | PN ---
Progress Note (short form) - Note Progress Note: SUBJECTIVE: patient is complaining of pain that has been there since she presented OBJECTIVE: s1 and s2 RRR Lungs CTA with good air entry no edema discolouration of toes warm foot until the toes where the discolouration is present ASSESSMENT AND PLAN: This is an 83 year old woman with a history of type 2 DM, HTN admitted for Right foot ischemia. # Right foot ischemia s/p Popliteal artery stent. - clopidogrel 75 mg po daily - c/w patient on heparin drip for now - will consider NOAC if ok with vascular surgery - f/u PT/INR x 3 times then once a day when therapeutic - morphine SR 15mg twice a day - morphine IVP 1mg prn breakthrough pain # HTN - amlodipine 10 mg -Losartan to 100mg w/ HCTZ 12.5mg #. Type 2 DM - Metformin, sitagliptin held - Continue Novolog sliding scale Ucx- + for lactobacilus -Asymptomatic FEN No Fluids Monitor electrolytes Diabetic/Sodium Diet
[2018-08-12] MEDS: HEPARIN - 25,000 UNIT in SODIUM CHLORIDE 495 ML IV SCH ×2 (11:00→17:01)
[2018-08-12 11:18] LABS: INR 1.23 (0.83-1.09); PROTHROMBIN TIME (PATIENT) 14.6 SEC (9.7-13.0)
[2018-08-12 11:21] LABS: ACTIVATED PTT 54.3 SECONDS (25.2-36.5)
[2018-08-12] MEDS ORDERED: PT OWN MED DRAWER 7, Y5N ONE ×2 (12:25→21:08)
[2018-08-12] MEDS: MORPHINE SULFATE 2 MG/ML VIAL IVPUSH PRN (14:12)
[2018-08-12] MEDS ORDERED: HEPARIN - 25,000 UNIT in SODIUM CHLORIDE 495 ML IV SCH (16:18)
[2018-08-12] MEDS ORDERED: HEPARIN NA (PORCINE) 5,000 UNITS/ML 1ML VIAL IVPUSH ONE (17:00)
[2018-08-12] MEDS ORDERED: INSULIN (NOVOLOG) ASPART 100 UNITS/ML 10ML VIAL ONE (21:07)
[2018-08-12] MEDS: morphine SO4 SUSTAINED ACTING 15 MG TABLET.SA PO SCH (21:53)
[2018-08-13] MEDS: MORPHINE SULFATE 2 MG/ML VIAL IVPUSH PRN (01:49)
[2018-08-13] MEDS: INSULIN SLIDING SCALE (NOVOLOG) 1 VIAL SQ SCH ×4 (06:29→22:10)
[2018-08-13 07:10] LABS: BASO % 0.3 % (0-2.0); EOS % 1.4 % (0-4.5); HEMATOCRIT 28.5 % (32.4-45.2); HEMOGLOBIN 9.1 GM/dL (10.7-15.3); LYMPH % 26.9 % (8-40); MCH 26.7 pg (25.7-33.7); MEAN CELL VOLUME 83.7 fl (80-96); MEAN PLT VOLUME 7.6 fl (7.5-11.1); NEUT % 59.4 % (42.8-82.8); PLATELET COUNT 321 K/MM3 (134-434); RBC 3.41 M/mm3 (3.60-5.2); RDW 15.6 % (11.6-15.6); WHITE BLOOD COUNT 6.7 K/mm3 (4.0-10.0)
[2018-08-13] MEDS ORDERED: PT OWN MED DRAWER 7, Y5N ONE ×2 (09:48→13:13)
[2018-08-13 09:54] LABS: ALBUMIN 2.5 g/dl (3.4-5.0); ALK PHOS 50 U/L (45-117); ANION GAP 11 MMOL/L (8-16); BILIRUBIN,TOTAL 0.3 mg/dL (0.2-1); BLOOD UREA NITROGEN 19 mg/dL (7-18); CALCIUM 8.2 mg/dL (8.5-10.1); CHLORIDE 102 mmol/L (98-107); CO2 26 mmol/L (21-32); CREATININE 0.8 mg/dL (0.55-1.3); GLUCOSE,RANDOM 146 mg/dL (74-106); POTASSIUM 4.4 mmol/L (3.5-5.1); SGOT/AST 16 U/L (15-37); SGPT/ALT 16 U/L (13-61); SODIUM 139 mmol/L (136-145); TOT PROT 6.7 g/dl (6.4-8.2)
--- NOTE | 2018-08-13 10:01 | PN ---
Physical Exam: SUBJECTIVE: Patient seen and examined at bedside. Endorsing pain in her right foot. Decreased sensation in her R large toe and 4th and 5th R toes. OBJECTIVE: Vital Signs Period Temp Pulse Resp BP Sys/Reyes Pulse Ox Last 24 Hr 98.7 F-99.7 F 69-77 20-20 121-138/53-70 96 GENERAL: AAOx3 HEAD: NC/AT EYES: EOMI PERRLA ENT: MMM NECK: Trachea midline, full range of motion, supple. LUNGS: CTA B/L HEART: RRRR No MRG S1S2 ABDOMEN: NDNT No HSM EXTREMITIES: R large toe dark/dusky coloration, no sensation, 4th and 5th toes no sensation dusky/dark coloration NEUROLOGICAL: Cranial nerves II through XII grossly intact. Normal speech, gait not observed. Laboratory Results - last 24 hr 08/12/18 08/12/18 08/12/18 10:10 11:12 16:46 WBC RBC Hgb Hct MCV MCH MCHC RDW Plt Count MPV Absolute Neuts (auto) Neutrophils % Lymphocytes % Monocytes % Eosinophils % Basophils % Nucleated RBC % PT with INR 14.60 H INR 1.23 H PTT (Actin FS) 54.3 H Sodium Potassium Chloride Carbon Dioxide Anion Gap BUN Creatinine Creat Clearance w eGFR POC Glucometer 339 87 Random Glucose Calcium Total Bilirubin AST ALT Alkaline Phosphatase Total Protein Albumin 08/12/18 08/12/18 08/13/18 21:03 23:10 05:45 WBC RBC Hgb Hct MCV MCH MCHC RDW Plt Count MPV Absolute Neuts (auto) Neutrophils % Lymphocytes % Monocytes % Eosinophils % Basophils % Nucleated RBC % PT with INR INR PTT (Actin FS) 101.5 H Sodium Potassium Chloride Carbon Dioxide Anion Gap BUN Creatinine Creat Clearance w eGFR POC Glucometer 252 146 Random Glucose Calcium Total Bilirubin AST ALT Alkaline Phosphatase Total Protein Albumin 08/13/18 08/13/18 06:30 06:30 WBC 6.7 RBC 3.41 L Hgb 9.1 L Hct 28.5 L MCV 83.7 MCH 26.7 MCHC 32.0 RDW 15.6 Plt Count 321 MPV 7.6 Absolute Neuts (auto) 4.0 Neutrophils % 59.4 D Lymphocytes % 26.9 D Monocytes % 12.0 H Eosinophils % 1.4 D Basophils % 0.3 Nucleated RBC % 0 PT with INR INR PTT (Actin FS) Sodium 139 Potassium 4.4 Chloride 102 Carbon Dioxide 26 Anion Gap 11 BUN 19 H Creatinine 0.8 Creat Clearance w eGFR > 60 POC Glucometer Random Glucose 146 H Calcium 8.2 L Total Bilirubin 0.3 AST 16 ALT 16 Alkaline Phosphatase 50 Total Protein 6.7 Albumin 2.5 L Active Medications Generic Name Dose Route Start Last Admin Trade Name Freq PRN Reason Stop Dose Admin Acetaminophen 650 mg 08/09/18 20:13 Tylenol - PO Q4H PRN PAIN LEVEL 6-10 Amlodipine Besylate 10 mg 08/10/18 10:00 08/12/18 09:23 Norvasc - PO 10 mg DAILY FLYNN Administration Clopidogrel Bisulfate 75 mg 08/10/18 10:00 08/12/18 09:23 Plavix - PO 75 mg DAILY FLYNN Administration Docusate Sodium 100 mg 08/09/18 22:00 08/12/18 21:53 Colace - PO 100 mg BID FLYNN Administration HCTZ/Losartan Potassium 1 tab 08/09/18 22:00 08/12/18 21:53 Hyzaar - PO 1 tab BID FLYNN Administration Heparin Sodium (Porcine) 1,000 unit 08/11/18 10:28 Heparin - IVPUSH PRN PRN Heparin Heparin Sodium (Porcine) 5,000 unit 08/11/18 10:28 08/11/18 19:47 Heparin - IVPUSH 5,000 unit PRN PRN Administration Heparin Heparin Sodium (Porcine) 25, 500 mls @ 24.97 mls/hr 08/12/18 16:38 08/13/18 01:15 000 unit/ Sodium Chloride IV 16.66 unit/kg/hr TITR [facility] 21.9 mls/hr Titration Protocol 19 UNIT/KG/HR Insulin Aspart 1 vial 08/09/18 22:00 08/13/18 06:29 Novolog Vial Sliding Scale - SQ Not Given ACHS [facility] Protocol Morphine Sulfate 15 mg 08/12/18 22:00 08/12/18 21:53 Ms Contin - PO 15 mg BID FLYNN Administration Morphine Sulfate 1 mg 08/12/18 10:11 08/13/18 01:49 Morphine Sulfate IVPUSH 1 mg Q4H PRN Administration PAIN LEVEL 7 - 10 Ondansetron HCl 4 mg 08/09/18 20:13 Zofran Injection IVPUSH Q6H PRN NAUSEA AND/OR VOMITING Senna 1 tab 08/09/18 22:00 08/12/18 21:54 Senna - PO 1 tab BID FLYNN Administration ASSESSMENT/PLAN: This is an 83 year old woman with a history of type 2 DM, HTN who presented to the ED with right foot pain. 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 - Plavix 75 mg po daily - PT/INR once a day when therapeutic - morphine SR 15mg BID - morphine IVP 1mg prn breakthrough pain # HTN - Norvasc 10 mg -Losartan to 100 w/ HCTZ 12.5 combo -Hydralazine PRN #. Type 2 DM - Metformin, Januvia held - Continue Novolog sliding scale Ucx- + for lactobacilus -Asymptomatic #FEN No Fluids Monitor electrolytes Diabetic/Sodium Diet DVT ppx: Heparin gtt started this morning Dispo: Med-surg Visit type - Emergency Visit Emergency Visit: Yes ED Registration Date: 08/07/18 Care time: The patient presented to the Emergency Department on the above date and was hospitalized for further evaluation of their emergent condition. - New Patient This patient is new to me today: No - Critical Care Critical Care patient: No
[2018-08-13] MEDS: amLODIPine BESYLATE 10 MG TABLET (FP) PO SCH (10:05)
[2018-08-13] MEDS: morphine SO4 SUSTAINED ACTING 15 MG TABLET.SA PO SCH ×2 (10:05→22:10)
[2018-08-13] MEDS: CLOPIDOGREL BISULFATE 75 MG TABLET (FP) PO SCH (10:05)
[2018-08-13] MEDS: DOCUSATE SODIUM 100 MG CAPSULE (FP) PO SCH ×2 (10:06→22:10)
[2018-08-13] MEDS: LOSARTAN 50MG/HCTZ 12.5MG 1 TAB (FP) PO SCH ×2 (10:06→22:15)
[2018-08-13] MEDS: SENNOSIDES 8.6MG TABLET (FP) PO SCH ×2 (10:06→22:10)
[2018-08-13] MEDS ORDERED: INSULIN (NOVOLOG) ASPART 100 UNITS/ML 10ML VIAL ONE (11:32)
--- NOTE | 2018-08-13 13:13 | PN ---
Teaching Attending Note Name of Resident: London Pope ATTENDING PHYSICIAN STATEMENT I saw and evaluated the patient. I reviewed the resident's note and discussed the case with the resident. I agree with the resident's findings and plan as documented. SUBJECTIVE:c/o pain in the R foot. worse on palpation. denies CP, SOB, fever, chills, N/V/C/D OBJECTIVE: Last Vital Signs Temp Pulse Resp BP Pulse Ox 98.9 F 65 18 101/50 L 96 08/13/18 10:00 08/13/18 10:00 08/13/18 10:00 08/13/18 10:00 08/12/18 21:00 General NAD CV S1 S2 RRR no murmur/rub/gallop Lungs CTA B/L no wheezing/rales/rhonchi extremities R foot with necrosis of the 1st/4th/5th not tender. mild discoloration at palmar of the foot under aforementioned toes. remaining foot and thigh are tender to light touch. unable to palpate DP pulse however exam is limited due to pain 2+ TP pulse. entire leg is warm. LLE is warm, pulse intact and non tender ASSESSMENT AND PLAN: 83 year old woman with a history of type 2 DM, HTN admitted for Right foot ischemia and found to have HTN urgency on presentation 1. R Foot ischemia- s/p angio with Popliteal artery and SFA sent placement 08/08. having necrosis of the digits could be due to microvascular disease vs embolic from recent manipulation. pt about to go for u/s to evaluate blood supply. Vascular surgeon is aware. cont hep ggt. unclear if any contraindication for statin therapy. will start high intensity statin. pain control. doppler negative for DVT 2. HTN urgency- now controlled. cont current management 3. DM- A1c 9.4. will need to optimize medication prior to discharge. hold oral agents. iss 4. +UCx- not symptomatic. will not treat 5. DVT ppx- hep ggt 6. PT 2 feet. will need MATEUS when medically optimized.
[2018-08-13] MEDS: HEPARIN - 25,000 UNIT in SODIUM CHLORIDE 495 ML IV SCH (17:13)
[2018-08-13] MEDS: HEPARIN NA (PORCINE) 5,000 UNITS/ML 1ML VIAL IVPUSH PRN (19:06)
[2018-08-13] MEDS: ATORVASTATIN CA 40 MG TABLET (FP) PO SCH (22:11)
[2018-08-14] MEDS: INSULIN SLIDING SCALE (NOVOLOG) 1 VIAL SQ SCH ×4 (06:16→22:33)
[2018-08-14 07:35] LABS: HEMOGLOBIN 8.7 GM/dL (10.7-15.3); MCH 26.9 pg (25.7-33.7); MCHC 32.2 g/dl (32.0-36.0); MEAN CELL VOLUME 83.4 fl (80-96); MEAN PLT VOLUME 7.9 fl (7.5-11.1); PLATELET COUNT 343 K/MM3 (134-434); RBC 3.23 M/mm3 (3.60-5.2); RDW 15.5 % (11.6-15.6); WHITE BLOOD COUNT 7.4 K/mm3 (4.0-10.0)
[2018-08-14] MEDS ORDERED: PT OWN MED DRAWER 7, Y5N ONE (09:00)
[2018-08-14] MEDS: POLYETHYLENE GLYCOL 3350 119 GM BTL PO SCH ×2 (09:23→22:07)
[2018-08-14] MEDS: morphine SO4 SUSTAINED ACTING 15 MG TABLET.SA PO SCH ×2 (09:23→22:03)
[2018-08-14] MEDS: CLOPIDOGREL BISULFATE 75 MG TABLET (FP) PO SCH (09:24)
[2018-08-14] MEDS: LOSARTAN 50MG/HCTZ 12.5MG 1 TAB (FP) PO SCH ×2 (09:24→22:06)
[2018-08-14] MEDS: amLODIPine BESYLATE 10 MG TABLET (FP) PO SCH (09:24)
[2018-08-14] MEDS: SENNOSIDES 8.6MG TABLET (FP) PO SCH ×2 (09:24→22:02)
[2018-08-14] MEDS: DOCUSATE SODIUM 100 MG CAPSULE (FP) PO SCH ×2 (09:24→22:03)
--- NOTE | 2018-08-14 10:42 | PN ---
Teaching Attending Note Name of Resident: London Pope ATTENDING PHYSICIAN STATEMENT I saw and evaluated the patient. I reviewed the resident's note and discussed the case with the resident. I agree with the resident's findings and plan as documented. SUBJECTIVE:continues to have pain in the foot. slight improvement with pain medications. unable to ambulate due to the pain. denies Cp, SOB, fever, chills, n/V/c/d OBJECTIVE: Last Vital Signs Temp Pulse Resp BP Pulse Ox 98.6 F 64 18 116/55 L 96 08/14/18 06:00 08/14/18 06:00 08/14/18 06:00 08/14/18 06:00 08/13/18 21:00 General NAD extremities R foot with necrosis of the 1st/4th/5th not tender. mild discoloration at palmar of the foot under aforementioned toes. palmar aspect of foot less tender then yesterday. foot is warm. 1+ pulse DP unable to palpate dorsum due to extreme tenderness. LLE is warm, pulse intact and non tender ASSESSMENT AND PLAN: 83 year old woman with a history of type 2 DM, HTN admitted for Right foot ischemia and found to have HTN urgency on presentation 1. R Foot ischemia- s/p angio with Popliteal artery and SFA sent placement 08/08. having necrosis of the digits could be due to microvascular disease vs embolic from recent manipulation. doppler done yesterday awaiting read. on hep ggt, statin and antiplatelet. awaiting further recommendations per vascular surgery. pain control. 2. HTN urgency- now controlled. cont current management 3. constipation- was c/o of abdominal pain yesterday. AXR done showing fecal impaction could be caused by opiates. start miralax and stool softneres. if no BM in 48H will give relistor 4. Normocytic anemia- iron def anemia. will give venofer. would hold oral supplementation in setting of constipation. no signs of bleeding. monitor closely while on anticoagulation 5. DM- A1c 9.4. will need to optimize medication prior to discharge. hold oral agents. iss 6. +UCx- not symptomatic. will not treat 7. DVT ppx- hep ggt 8. PT 2 feet. will need MATEUS when medically optimized.
[2018-08-14] MEDS ORDERED: IRON SUCROSE INJECTION 200 MG in SODIUM CHLORIDE 90 ML IVPB ONE (10:43)
[2018-08-14] MEDS ORDERED: INSULIN (NOVOLOG) ASPART 100 UNITS/ML 10ML VIAL ONE (11:21)
--- NOTE | 2018-08-14 14:54 | PN ---
Physical Exam: SUBJECTIVE: Patient seen and examined at bedside. C/o right foot pain. No acute events overnight. OBJECTIVE: Vital Signs Period Temp Pulse Resp BP Sys/Reyes Pulse Ox Last 24 Hr 98.4 F-99.8 F 63-67 18-18 116-144/55-71 96-97 GENERAL: Awake Alert HEAD: NC/AT EYES: EOMI PERRLA ENT: MMM NECK: Supple LUNGS: Dec BS @ bases HEART: RRR No MRG S1S2 ABDOMEN: NDNT No HSM EXTREMITIES: Right big toe, 4th and 5th toes dark blue coloration, no sensation Laboratory Results - last 24 hr 08/13/18 08/13/18 08/13/18 16:47 16:54 22:08 WBC RBC Hgb Hct MCV MCH MCHC RDW Plt Count MPV PTT (Actin FS) 46.4 H POC Glucometer 203 153 08/14/18 08/14/18 08/14/18 00:30 05:51 06:20 WBC 7.4 RBC 3.23 L Hgb 8.7 L Hct 27.0 L MCV 83.4 MCH 26.9 MCHC 32.2 RDW 15.5 Plt Count 343 MPV 7.9 PTT (Actin FS) 64.7 H POC Glucometer 178 08/14/18 08/14/18 06:20 11:32 WBC RBC Hgb Hct MCV MCH MCHC RDW Plt Count MPV PTT (Actin FS) 62.6 H POC Glucometer 236 Active Medications Generic Name Dose Route Start Last Admin Trade Name Freq PRN Reason Stop Dose Admin Acetaminophen 650 mg 08/09/18 20:13 Tylenol - PO Q4H PRN PAIN LEVEL 6-10 Amlodipine Besylate 10 mg 08/10/18 10:00 08/14/18 09:24 Norvasc - PO 10 mg DAILY FLYNN Administration Atorvastatin Calcium 40 mg 08/13/18 22:00 08/13/18 22:11 Lipitor - PO 40 mg HS FLYNN Administration Clopidogrel Bisulfate 75 mg 08/10/18 10:00 08/14/18 09:24 Plavix - PO 75 mg DAILY FLYNN Administration Docusate Sodium 100 mg 08/09/18 22:00 08/14/18 09:24 Colace - PO 100 mg BID FLYNN Administration HCTZ/Losartan Potassium 1 tab 08/09/18 22:00 08/14/18 09:24 Hyzaar - PO 1 tab BID FLYNN Administration Heparin Sodium (Porcine) 1,000 unit 08/11/18 10:28 08/13/18 19:06 Heparin - IVPUSH 1,000 unit PRN PRN Administration Heparin Heparin Sodium (Porcine) 5,000 unit 08/11/18 10:28 08/11/18 19:47 Heparin - IVPUSH 5,000 unit PRN PRN Administration Heparin Heparin Sodium (Porcine) 25, 500 mls @ 24.97 mls/hr 08/12/18 16:38 08/14/18 01:59 000 unit/ Sodium Chloride IV 16.66 unit/kg/hr TITR FLYNN 21.9 mls/hr Titration Protocol 19 UNIT/KG/HR Insulin Aspart 1 vial 08/09/18 22:00 08/14/18 11:33 Novolog Vial Sliding Scale - SQ 4 units ACHS FLYNN Administration Protocol Morphine Sulfate 15 mg 08/12/18 22:00 08/14/18 09:23 Ms Contin - PO 15 mg BID FLYNN Administration Morphine Sulfate 1 mg 08/12/18 10:11 08/13/18 01:49 Morphine Sulfate IVPUSH 1 mg Q4H PRN Administration PAIN LEVEL 7 - 10 Ondansetron HCl 4 mg 08/09/18 20:13 Zofran Injection IVPUSH Q6H PRN NAUSEA AND/OR VOMITING Polyethylene Glycol 17 gm 08/14/18 10:00 08/14/18 09:23 Miralax (For Daily Use) - PO 17 grams BID FLYNN Administration Senna 1 tab 08/09/18 22:00 08/14/18 09:24 Senna - PO 1 tab BID FLYNN Administration ASSESSMENT/PLAN: This is an 83 year old woman with a history of type 2 DM, HTN who presented to the ED with right foot pain. 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 - Plavix 75 mg po daily - PT/INR once a day when therapeutic - morphine SR 15mg BID - morphine IVP 1mg prn breakthrough pain --Per vascular surgery--> TMA, podiatry consult for necrosis of R big toe, 4th and 5th toes r foot. Doppler ultrasound yesterday, official read pending. -Acetaminophen 650 mg po q4h prn pain # HTN - Norvasc 10 mg -Losartan to 100 w/ HCTZ 12.5 combo -Hydralazine PRN #. Type 2 DM - Metformin, Januvia held - Continue Novolog sliding scale Ucx- + for lactobacilus -Asymptomatic #FEN No Fluids Monitor electrolytes Diabetic/Sodium Diet DVT ppx: Heparin gtt Dispo: Med-surg Visit type - Emergency Visit Emergency Visit: Yes ED Registration Date: 08/07/18 Care time: The patient presented to the Emergency Department on the above date and was hospitalized for further evaluation of their emergent condition. - New Patient This patient is new to me today: No - Critical Care Critical Care patient: No
[2018-08-14] MEDS: HEPARIN - 25,000 UNIT in SODIUM CHLORIDE 495 ML IV SCH (18:44)
--- NOTE | 2018-08-14 18:48 | PN ---
Progress Note (short form) - Note Progress Note: Vascular Surgery Pt seen and examined with daughter at bedside. Explained to pt that we were able to open her inflow down to her knee last week when pt came in with cold foot. US done yesterday that the sfa stents are patent. Pt has one vessel runoff into foot in the form of the PT artery. It perfuses the entire plantar aspect of the foot. 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 Pt would benefit from TMA. Will get podiatry to evaluate. Daughter understands that the tma flap may not heal. Pt does not have any bypassable disease, and only has PT runoff. William Cates DO
[2018-08-14] MEDS: ATORVASTATIN CA 40 MG TABLET (FP) PO SCH (22:02)
[2018-08-15] MEDS: MORPHINE SULFATE 2 MG/ML VIAL IVPUSH PRN (02:48)
[2018-08-15] MEDS: INSULIN SLIDING SCALE (NOVOLOG) 1 VIAL SQ SCH ×4 (06:10→21:10)
[2018-08-15 06:48] LABS: HEMATOCRIT 30.1 % (32.4-45.2); HEMOGLOBIN 9.6 GM/dL (10.7-15.3); MCH 26.8 pg (25.7-33.7); MCHC 31.9 g/dl (32.0-36.0); MEAN CELL VOLUME 83.9 fl (80-96); MEAN PLT VOLUME 7.6 fl (7.5-11.1); PLATELET COUNT 383 K/MM3 (134-434); RBC 3.59 M/mm3 (3.60-5.2); RDW 15.3 % (11.6-15.6); WHITE BLOOD COUNT 8.6 K/mm3 (4.0-10.0)
--- NOTE | 2018-08-15 07:44 | CONSULT ---
Consult Consult Specialty:: Podiatry Reason for Consultation:: Gangarene right foot - History of Present Illness Chief Complaint: Gangarene right foot History of Present Illness: Painful gangrenous foot right since 08/07/18. Consulted for evaluation and intervention. - History Source History Provided By: Medical Record Limitations to Obtaining History: Poor Historian - Alcohol/Substance Use Hx Alcohol Use: No - Smoking History Smoking history: Never smoked Have you smoked in the past 12 months: No Home Medications - Allergies Allergies/Adverse Reactions: Allergies Allergy/AdvReac Type Severity Reaction Status Date / Time Penicillins Allergy Verified 08/07/18 12:35 - Home Medications Home Medications: Ambulatory Orders Losartan Potassium [Cozaar -] 50 mg PO BID 08/07/18 Omeprazole Magnesium [Prilosec Otc] 20 mg PO DAILY 08/07/18 Oxybutynin Chloride [Oxybutynin Chloride ER] 5 mg PO DAILY 08/07/18 Sitagliptin Phos/Metformin HCl [Janumet 50-1,000 mg Tablet] 1 each PO BID Gabapentin [Neurontin] 1 cap PO BID 08/14/18 Ibuprofen 600 mg PO Q6H PRN 08/14/18 Insulin Glargine,Hum.rec.anlog [Lantus Solostar PEN (NF)] 10 units SQ HS Oxycodone HCl/Acetaminophen [Percocet 5-325 mg Tablet] 1 tab PO Q6H PRN Repaglinide 1 tab PO TID 08/14/18 Physical Exam Vital Signs: Vital Signs Temperature 98.4 F 08/15/18 06:00 Pulse Rate 70 08/15/18 06:00 Respiratory Rate 18 08/15/18 06:00 Blood Pressure 143/64 08/15/18 06:00 O2 Sat by Pulse Oximetry (%) 97 08/14/18 21:00 Extremities: Yes: Other (gangarene toes 1,4,5 to mpj right foot, +cold foot, + ischemia, +dry, -drainage, -mal odor) Labs: CBC, BMP 08/15/18 06:15 Imaging - Results X-ray: Report Reviewed, Image Reviewed Assessment/Plan ganjohannyene pvd Read and appreciated vascular note. Spoke with both daughters on [employer] one of them at 7:30am the other at 1:30pm. Discussed options at this time. We can do nothing vs amputation of just toes vs transmetatarsal amputation. Family to discuss and to consent to procedure after discussing amongst themselves. No guarantee given as far as healing is concerned. Patient has uncontrolled diabetes and pvd. Explained that healing is a major issue but would resect as far back as needs to obtain healthy tissue to close wound. They both understood that if did not heal there was always a possibility of revision and or BKA. Will allow to demarcate till Monday. Patient on schedule for this Monday. Will meet with sisters to get consent for procedures tomorrow.
[2018-08-15 07:51] LABS: ANION GAP 7 MMOL/L (8-16); BLOOD UREA NITROGEN 18 mg/dL (7-18); CALCIUM 8.6 mg/dL (8.5-10.1); CHLORIDE 100 mmol/L (98-107); CO2 28 mmol/L (21-32); CREATININE 0.9 mg/dL (0.55-1.3); GLUCOSE,RANDOM 176 mg/dL (74-106); MAGNESIUM 1.7 mg/dL (1.8-2.4); PHOSPHOROUS 2.9 mg/dL (2.5-4.9); POTASSIUM 3.9 mmol/L (3.5-5.1); SODIUM 135 mmol/L (136-145)
[2018-08-15] MEDS ORDERED: PT OWN MED DRAWER 7, Y5N ONE ×2 (09:56→20:54)
[2018-08-15] MEDS: DOCUSATE SODIUM 100 MG CAPSULE (FP) PO SCH ×2 (10:02→21:09)
[2018-08-15] MEDS: amLODIPine BESYLATE 10 MG TABLET (FP) PO SCH (10:02)
[2018-08-15] MEDS: POLYETHYLENE GLYCOL 3350 119 GM BTL PO SCH ×2 (10:02→21:25)
[2018-08-15] MEDS: SENNOSIDES 8.6MG TABLET (FP) PO SCH ×2 (10:03→21:10)
[2018-08-15] MEDS: LOSARTAN 50MG/HCTZ 12.5MG 1 TAB (FP) PO SCH ×2 (10:03→21:08)
[2018-08-15] MEDS: morphine SO4 SUSTAINED ACTING 15 MG TABLET.SA PO SCH ×2 (10:04→21:09)
[2018-08-15] MEDS ORDERED: INSULIN (NOVOLOG) ASPART 100 UNITS/ML 10ML VIAL ONE (11:16)
[2018-08-15] MEDS: CLOPIDOGREL BISULFATE 75 MG TABLET (FP) PO SCH (11:45)
--- NOTE | 2018-08-15 12:57 | PN ---
Teaching Attending Note Name of Resident: London Pope ATTENDING PHYSICIAN STATEMENT I saw and evaluated the patient. I reviewed the resident's note and discussed the case with the resident. I agree with the resident's findings and plan as documented. SUBJECTIVE:continues to have foot pain which improves with medication. denies Cp , SOB, fever, chills, N/V/D. no Bm x2days OBJECTIVE: Last Vital Signs Temp Pulse Resp BP Pulse Ox 98.5 F 73 18 128/68 97 08/15/18 09:50 08/15/18 09:50 08/15/18 09:50 08/15/18 09:50 08/14/18 21:00 General NAD abdomen soft NT/ND extremities R foot with necrosis of the 1st/4th/5th not tender. mild discoloration at palmar of the foot under aforementioned toes. palmar aspect of foot less tender then yesterday. foot is warm. 1+ pulse DP unable to palpate dorsum due to extreme tenderness. LLE is warm, pulse intact and non tender ASSESSMENT AND PLAN: 83 year old woman with a history of type 2 DM, HTN admitted for Right foot ischemia and found to have HTN urgency on presentation 1. R Foot ischemia- s/p angio with Popliteal artery and SFA sent placement 08/08. poor circulation to foot with single vessel run off, will require TMA. podiatry consulted. on hep ggt, statin. hold antiplatelet pending surgery. pain control. 2. HTN urgency- now controlled. cont current management 3. constipation-likely opiate induced. cont stool softeners. if no BM by tomorrow will give relistor 4. Normocytic anemia- iron def anemia. s/p venofer. would hold oral supplementation in setting of constipation. no signs of bleeding. Hgb improved. monitor closely while on anticoagulation 5. DM- A1c 9.4. will need to optimize medication prior to discharge. hold oral agents. iss 6. +UCx- not symptomatic. will not treat 7. DVT ppx- hep ggt 8. PT 2 feet. will need MATEUS when medically optimized.
--- NOTE | 2018-08-15 17:31 | PN ---
Physical Exam: SUBJECTIVE: Patient seen and examined at bedside. Endorsing pain her her R foot. No acute events overnight. OBJECTIVE: Vital Signs Period Temp Pulse Resp BP Sys/Reyes Pulse Ox Last 24 Hr 98.3 F-98.7 F 64-73 17-18 128-149/59-76 97-97 GENERAL: Awake Alert HEAD: NC/AT EYES: EOMI ENT: MMM NECK: Supple LUNGS:CTA B/L,No wheezing rhonchi or rales HEART: RRR No MRG S1S2 ABDOMEN: Soft NDNT No HSM EXTREMITIES:Dark, cold, no sensation R large toe and 4th and 5th toes R foot. Sensation intact R Heel and sole. NEUROLOGICAL: Cranial nerves II through XII grossly intact. Normal speech, gait not observed. Laboratory Results - last 24 hr 08/14/18 08/14/18 08/15/18 17:18 22:27 05:37 WBC RBC Hgb Hct MCV MCH MCHC RDW Plt Count MPV PTT (Actin FS) Sodium Potassium Chloride Carbon Dioxide Anion Gap BUN Creatinine Creat Clearance w eGFR POC Glucometer 192 218 164 Random Glucose Calcium Phosphorus Magnesium 08/15/18 08/15/18 08/15/18 06:15 06:15 06:15 WBC 8.6 RBC 3.59 L Hgb 9.6 L Hct 30.1 L MCV 83.9 MCH 26.8 MCHC 31.9 L RDW 15.3 Plt Count 383 MPV 7.6 PTT (Actin FS) 83.3 H Sodium 135 L Potassium 3.9 Chloride 100 Carbon Dioxide 28 Anion Gap 7 L BUN 18 Creatinine 0.9 Creat Clearance w eGFR > 60 POC Glucometer Random Glucose 176 H Calcium 8.6 Phosphorus 2.9 Magnesium 1.7 L 08/15/18 11:29 WBC RBC Hgb Hct MCV MCH MCHC RDW Plt Count MPV PTT (Actin FS) Sodium Potassium Chloride Carbon Dioxide Anion Gap BUN Creatinine Creat Clearance w eGFR POC Glucometer 331 Random Glucose Calcium Phosphorus Magnesium Active Medications Generic Name Dose Route Start Last Admin Trade Name Freq PRN Reason Stop Dose Admin Acetaminophen 650 mg 08/09/18 20:13 Tylenol - PO Q4H PRN PAIN LEVEL 6-10 Amlodipine Besylate 10 mg 08/10/18 10:00 08/15/18 10:02 Norvasc - PO 10 mg DAILY [facility] Administration Atorvastatin Calcium 40 mg 08/13/18 22:00 08/14/18 22:02 Lipitor - PO 40 mg HS [facility] Administration Docusate Sodium 100 mg 08/09/18 22:00 08/15/18 10:02 Colace - PO 100 mg BID FL[facility] Administration HCTZ/Losartan Potassium 1 tab 08/09/18 22:00 08/15/18 10:03 Hyzaar - PO 1 tab BID [facility] Administration Heparin Sodium (Porcine) 1,000 unit 08/11/18 10:28 08/13/18 19:06 Heparin - IVPUSH 1,000 unit PRN PRN Administration Heparin Heparin Sodium (Porcine) 5,000 unit 08/11/18 10:28 08/11/18 19:47 Heparin - IVPUSH 5,000 unit PRN PRN Administration Heparin Heparin Sodium (Porcine) 25, 500 mls @ 24.97 mls/hr 08/12/18 16:38 08/15/18 10:05 000 unit/ Sodium Chloride IV 15.89 unit/kg/hr TITR FLYNN 20.9 mls/hr Titration Protocol 19 UNIT/KG/HR Insulin Aspart 1 vial 08/09/18 22:00 08/15/18 17:15 Novolog Vial Sliding Scale - SQ Not Given ACHS [facility] Protocol Morphine Sulfate 15 mg 08/12/18 22:00 08/15/18 10:04 Ms Contin - PO 15 mg BID [facility] Administration Ondansetron HCl 4 mg 08/09/18 20:13 Zofran Injection IVPUSH Q6H PRN NAUSEA AND/OR VOMITING Polyethylene Glycol 17 gm 08/14/18 10:00 08/15/18 10:02 Miralax (For Daily Use) - PO 17 grams BID [facility] Administration Senna 1 tab 08/09/18 22:00 08/15/18 10:03 Senna - PO 1 tab BID FLYNN Administration ASSESSMENT/PLAN: This is an 83 year old woman with a history of type 2 DM, HTN who presented to the ED with right foot pain. 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 - Plavix 75 mg po daily-hold in light of tentative surgery. - PT/INR once a day when therapeutic - morphine SR 15mg BID - morphine IVP 1mg prn breakthrough pain --Per vascular surgery--> TMA, podiatry consult for necrosis of R big toe, 4th and 5th toes r foot. Doppler ultrasound yesterday, official read pending. -Dr Daugherty on board, [facility] tentatively this Monday08/17/18 pending family agreement and consent -Acetaminophen 650 mg po q4h prn pain # HTN - Norvasc 10 mg -Losartan to 100 w/ HCTZ 12.5 combo -Hydralazine PRN #. Type 2 DM - Metformin, Januvia held - Continue Novolog sliding scale Ucx- + for lactobacilus -Asymptomatic #FEN No Fluids Monitor electrolytes Diabetic/Sodium Diet DVT ppx: Heparin gtt Dispo: Med-surg Visit type - Emergency Visit Emergency Visit: Yes ED Registration Date: 08/07/18 Care time: The patient presented to the Emergency Department on the above date and was hospitalized for further evaluation of their emergent condition. - New Patient This patient is new to me today: No - Critical Care Critical Care patient: No - Discharge Referral Referred to [facility] Med P.C.: No
[2018-08-15] MEDS: HEPARIN - 25,000 UNIT in SODIUM CHLORIDE 495 ML IV SCH (18:29)
[2018-08-15] MEDS: ATORVASTATIN CA 40 MG TABLET (FP) PO SCH (21:08)
[2018-08-16] MEDS: ONDANSETRON 4 MG/2 ML VIAL IVPUSH PRN ×2 (03:20→12:25)
[2018-08-16] MEDS ORDERED: MINERAL OIL ENEMA 133 ML ENEMA PR ONE (04:39)
--- NOTE | 2018-08-16 04:40 | PN ---
Progress Note (short form) - Note Progress Note: call center representative international accounting manager paged for concern of patient who vomited mucus with food particles. Patient noted to have removed her IV line. Subjective: Patient resting comfortably in exam bed. States she has abdominal pain. Endorses no bowel movements since last week. Objective: GENERAL: Patient is awake, alert, in mild distress. HEENT: PERRLA, EOMI PULMONARY: Lungs clear to auscultation B/L. No wheezing, no rhonchi CARDIO: +S1, S2, no murmurs, rubs, gallops GI: Soft, nontender to palpation. Normoactive bowel sounds auscultated X4 quadrants. RECTAL: No external hemorrhoids noted. good anal sphincter tone. Hard light brown stool palpated in rectal vault. NEURO: CN II-XII grossly intact without focal deficits. Assessment and Plan -Patients abdominal pain, nuasea, and vomiting, may be secondary to fecal impaction. -Patient manually disimpacted. Solid, iva-consistency light brown stool removed from rectum. No aleena blood, or melanotic stools noted. -Fleet enema with mineral oil ordered -Tylenol 650mg PO for pain -Replace IV line to continue Heparin drip. Discussed with patient who agrees to allow nurse to place IV line.
[2018-08-16] MEDS: INSULIN SLIDING SCALE (NOVOLOG) 1 VIAL SQ SCH ×4 (06:34→22:25)
[2018-08-16] MEDS ORDERED: INSULIN (NOVOLOG) ASPART 100 UNITS/ML 10ML VIAL ONE ×2 (06:40→21:29)
[2018-08-16] MEDS ORDERED: PT OWN MED DRAWER 7, Y5N ONE ×4 (06:40→21:30)
[2018-08-16 07:25] LABS: HEMATOCRIT 31.9 % (32.4-45.2); HEMOGLOBIN 10.2 GM/dL (10.7-15.3); MCH 26.8 pg (25.7-33.7); MCHC 32.1 g/dl (32.0-36.0); MEAN CELL VOLUME 83.5 fl (80-96); MEAN PLT VOLUME 9.1 fl (7.5-11.1); PLATELET COUNT 265 K/MM3 (134-434); RBC 3.82 M/mm3 (3.60-5.2); RDW 15.7 % (11.6-15.6); WHITE BLOOD COUNT 11.5 K/mm3 (4.0-10.0)
[2018-08-16 08:06] LABS: ANION GAP 9 MMOL/L (8-16); BLOOD UREA NITROGEN 16 mg/dL (7-18); CALCIUM 9.2 mg/dL (8.5-10.1); CHLORIDE 96 mmol/L (98-107); CO2 28 mmol/L (21-32); CREATININE 0.8 mg/dL (0.55-1.3); GLUCOSE,RANDOM 246 mg/dL (74-106); MAGNESIUM 1.6 mg/dL (1.8-2.4); PHOSPHOROUS 3.5 mg/dL (2.5-4.9); POTASSIUM 4.4 mmol/L (3.5-5.1); SODIUM 132 mmol/L (136-145)
[2018-08-16] MEDS: HEPARIN NA (PORCINE) 5,000 UNITS/ML 1ML VIAL IVPUSH PRN (08:56)
[2018-08-16] MEDS: HEPARIN - 25,000 UNIT in SODIUM CHLORIDE 495 ML IV SCH ×2 (08:57→17:38)
[2018-08-16] MEDS ORDERED: ACETAMINOPHEN 325 MG TABLET (FP) PO PRN (09:17)
--- NOTE | 2018-08-16 10:38 | PN ---
Progress Note (short form) - Note Progress Note: FUV right foot. Spoke with family at length 3 sisters presents. Want to discuss procedure vss, Tmax 98.3 +gangarene right foot toe 1,3,4,5, +pvd, gangarene right foot Discussed at length with family. Gave them all 3 options Watch, TMA vs BKA. They agreed to TMA but did not want to have a second procedure. They would decide by evening if they would proceed. About 4:30pm got a call from Resident Niko informing me that bka was there choice. I advised them to call Dr. Cates to go forward with procedure. Will follow till dc.
--- NOTE | 2018-08-16 11:16 | PN ---
Physical Exam: SUBJECTIVE: Patient seen and examined at bedside. Was agitated overnight, removed I.V lines, episode of vomiting, attended to by night team. For TMA tomorrow. OBJECTIVE: Vital Signs Period Temp Pulse Resp BP Sys/Reyes Pulse Ox Last 24 Hr 98.1 F-98.7 F 66-76 17-18 137-186/53-83 97 GENERAL: Awake Alert HEAD: NC/AT LUNGS: Decreased Breath sounds at bases HEART: RRR No MRG S1S2 ABDOMEN: NDNT BS+ EXTREMITIES: R foot dusky in color, R large toe dark blue wrinkles present, sensation absent in large toe and 4th and 5th toes R side. Cool touch. Heel R foot warm, sensation in tact. DP pulse absent R Foot. Laboratory Results - last 24 hr 08/15/18 08/15/18 08/15/18 11:29 17:14 21:06 WBC RBC Hgb Hct MCV MCH MCHC RDW Plt Count MPV PTT (Actin FS) Sodium Potassium Chloride Carbon Dioxide Anion Gap BUN Creatinine Creat Clearance w eGFR POC Glucometer 331 123 218 Random Glucose Calcium Phosphorus Magnesium Stool Occult Blood 08/16/18 08/16/18 08/16/18 04:00 06:31 06:45 WBC 11.5 H RBC 3.82 Hgb 10.2 L Hct 31.9 L MCV 83.5 MCH 26.8 MCHC 32.1 RDW 15.7 H Plt Count 265 D MPV 9.1 D PTT (Actin FS) Sodium Potassium Chloride Carbon Dioxide Anion Gap BUN Creatinine Creat Clearance w eGFR POC Glucometer 271 Random Glucose Calcium Phosphorus Magnesium Stool Occult Blood Negative 08/16/18 08/16/18 06:45 06:45 WBC RBC Hgb Hct MCV MCH MCHC RDW Plt Count MPV PTT (Actin FS) 45.7 H Sodium 132 L Potassium 4.4 Chloride 96 L Carbon Dioxide 28 Anion Gap 9 BUN 16 Creatinine 0.8 Creat Clearance w eGFR > 60 POC Glucometer Random Glucose 246 H Calcium 9.2 Phosphorus 3.5 Magnesium 1.6 L Stool Occult Blood Active Medications Generic Name Dose Route Start Last Admin Trade Name Freq PRN Reason Stop Dose Admin Acetaminophen 650 mg 08/16/18 09:17 Tylenol - PO 08/19/18 09:16 Q4H PRN PAIN 6-10 Amlodipine Besylate 10 mg 08/10/18 10:00 08/15/18 10:02 Norvasc - PO 10 mg DAILY FLYNN Administration Atorvastatin Calcium 40 mg 08/13/18 22:00 08/15/18 21:08 Lipitor - PO 40 mg HS FLYNN Administration Docusate Sodium 100 mg 08/09/18 22:00 08/15/18 21:09 Colace - PO 100 mg BID FLYNN Administration HCTZ/Losartan Potassium 1 tab 08/09/18 22:00 08/15/18 21:08 Hyzaar - PO 1 tab BID FLYNN Administration Heparin Sodium (Porcine) 1,000 unit 08/11/18 10:28 08/16/18 08:56 Heparin - IVPUSH 1,000 unit PRN PRN Administration Heparin Heparin Sodium (Porcine) 5,000 unit 08/11/18 10:28 08/11/18 19:47 Heparin - IVPUSH 5,000 unit PRN PRN Administration Heparin Heparin Sodium (Porcine) 25, 500 mls @ 24.97 mls/hr 08/12/18 16:38 08/16/18 08:57 000 unit/ Sodium Chloride IV 17.42 unit/kg/hr TITR FLYNN 22.9 mls/hr Administration Protocol 19 UNIT/KG/HR Insulin Aspart 1 vial 08/09/18 22:00 08/16/18 06:34 Novolog Vial Sliding Scale - SQ 6 units ACHS FLYNN Administration Protocol Methylnaltrexone [place] 8 mg 08/16/18 10:00 Relistor - SQ DAILY FLYNN Ondansetron HCl 4 mg 08/09/18 20:13 Zofran Injection IVPUSH Q6H PRN NAUSEA AND/OR VOMITING Oxycodone HCl 10 mg 08/16/18 09:17 Roxicodone - PO Q4H PRN PAIN 6-10 Polyethylene Glycol 17 gm 08/14/18 10:00 08/15/18 21:25 Miralax (For Daily Use) - PO 17 grams BID FLY[facility] Administration Senna 1 tab 08/09/18 22:00 08/15/18 21:10 Senna - PO 1 tab BID FLYNN Administration ASSESSMENT/PLAN: This is an 83 year old woman with a history of type 2 DM, HTN who presented to the ED with right foot pain. 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 - Plavix 75 mg po daily-hold in light of tentative surgery. - PT/INR once a day when therapeutic -Morphine D/C'ed, started on Roxicodone 10 mg po Q4H prn --Per vascular surgery--> TMA, podiatry consult for necrosis of R big toe, 4th and 5th toes r foot. Doppler ultrasound yesterday, official read pending. -Dr Daugherty on board, [facility] tentatively this Monday08/17/18 pending family agreement and consent -Acetaminophen 650 mg po q4h prn pain # HTN - Norvasc 10 mg -Losartan to 100 w/ HCTZ 12.5 combo -Hydralazine PRN #. Type 2 DM - Metformin, Januvia held - Continue Novolog sliding scale Ucx- + for lactobacilus -Asymptomatic will not treat #FEN No Fluids Monitor electrolytes Diabetic/Sodium Diet DVT ppx: Heparin gtt Dispo: Med-surg Visit type - Emergency Visit Emergency Visit: Yes ED Registration Date: 08/07/18 Care time: The patient presented to the Emergency Department on the above date and was hospitalized for further evaluation of their emergent condition. - New Patient This patient is new to me today: No - Critical Care Critical Care patient: No - Discharge Referral Referred to [facility] Med P.C.: No
[2018-08-16] MEDS: DOCUSATE SODIUM 100 MG CAPSULE (FP) PO SCH ×2 (12:21→22:13)
[2018-08-16] MEDS: amLODIPine BESYLATE 10 MG TABLET (FP) PO SCH (12:21)
[2018-08-16] MEDS: SENNOSIDES 8.6MG TABLET (FP) PO SCH ×2 (12:21→22:13)
[2018-08-16] MEDS: LOSARTAN 50MG/HCTZ 12.5MG 1 TAB (FP) PO SCH ×2 (12:21→22:13)
[2018-08-16] MEDS: POLYETHYLENE GLYCOL 3350 119 GM BTL PO SCH ×2 (12:21→22:13)
[2018-08-16] MEDS: Methylnaltrexone Bromide 12 MG/0.6 ML KIT SQ SCH (13:22)
--- NOTE | 2018-08-16 13:59 | OP ---
DATE OF OPERATION: 08/08/2018 PREOPERATIVE DIAGNOSIS: Right lower extremity ischemia. POSTOPERATIVE DIAGNOSIS: Right lower extremity ischemia. PROCEDURE: Aortogram, right lower extremity angiogram, superficial femoral artery/popliteal artery drug-coated balloon (DCB) angioplasty, superficial femoral artery/popliteal artery stent. SURGEON: William Lopez DO ANESTHESIA: Fractional. BLOOD LOSS: 50 mL. INDICATIONS: The patient is an 83-year-old female that comes in with right foot pain and ischemia for probably over 4 weeks. Patient is an uncontrolled diabetic with a hemoglobin A1c of 9.4. Patient is noncompliant. Patient does not take any medications for her diabetes. Patient claims the pills are too small and she does not want to take any medications. Patient is an ex-smoker for a very long time, and that contributes to her disease process. Family understands that patient has discoloration of the fourth and fifth and the right great toe due to ischemia. Patient's family was consented for the procedure understanding all risks, benefits, and alternatives. OPERATIVE FINDINGS: The patient was then brought into the operating room, laid on the operative table supine manner and the area of the right and left groin were prepped and draped in a sterile surgical manner. We then injected 10 mL of lidocaine 1% over the left common femoral artery. We then went ahead and punctured the left common femoral artery with our micropuncture needle. Micropuncture wire was inserted in a traditional short 5-Hungarian sheath was inserted. We then placed a 0.035 floppy guidewire up into the aorta followed by an Omni Flush catheter. We then shot an angiogram via hand injection showing that the aorta and iliac arteries were without any disease. We then went up and over it using a 0.035 floppy guidewire and placed a wire in the right common femoral artery and Omni Flush catheter followed. We then shot an angiogram of the right lower extremity showing that the common femoral artery and the profunda were patent. The mid-SFA had a severe stenosis of the 80% in the [id number] SFA, and the distal SFA to the above-knee popliteal artery had severe stenosis of tandem lesions measuring between 80% and 90%. Behind-knee popliteal artery was patent and patient had 1-vessel runoff which was the PT going down into the foot. Patient's below-knee popliteal artery and TP trunk were occluded, and patient had created collateral circulation that directly feeds the heel. Patient did not have any runoff to the forefoot. At this point, we placed a 0.035 stiff guidewire into the SFA and removed our Omni Flush catheter placing a 6 x 45 Crossover sheath, and 5000 units of IV heparin were administered to patient. Using Quick-Cross catheter, we were able to get our wire down into the behind-knee popliteal artery. We then went ahead and using a 6 x 150 drug-coated balloon, we were able to perform an angioplasty of the above knee popliteal and the distal SFA. Completion angiogram then showed that the SFA was still stenotic and was a little dissected. We then went ahead and placed a 6 x 150 LifeStent in the area which was ballooned in place using a 5 x 150 ULTRAVERSE balloon. We then went to the mid-SFA and using our 5 balloon, we performed angioplasty of the area. Completion angiogram showed that the SFA was patent. The SFA stents were patent, and there was good brisk flow going down into the posterior tibial artery and feeding the plantar aspect of the foot. Patient does not have any runoff, does not have AT or peroneal artery present. Patient will probably now need a TMA if she does not get better. If the TMA does not heal, she would need a BKA. We spoke to the family after the operation and explained to them the disease process. Patient will need a medical doctor up here in [place] and need an plant safety leader to control her diabetes, and we will get her appropriate doctors. Patient transferred to PACU in stable condition. Total blood loss 50 mL. WILLIAM LOPEZ DO NP/[id number]
--- NOTE | 2018-08-16 15:19 | PN ---
Teaching Attending Note Name of Resident: London Pope ATTENDING PHYSICIAN STATEMENT I saw and evaluated the patient. I reviewed the resident's note and discussed the case with the resident. I agree with the resident's findings and plan as documented. SUBJECTIVE:refuses to speak to me today. looks away when speaking with her. OBJECTIVE: Last Vital Signs Temp Pulse Resp BP Pulse Ox 98.7 F 74 17 179/61 H 97 08/16/18 14:36 08/16/18 14:36 08/16/18 14:36 08/16/18 14:36 08/15/18 21:00 General NAD, resting comfortable refuses physical exam ASSESSMENT AND PLAN: 83 year old woman with a history of type 2 DM, HTN admitted for Right foot ischemia and found to have HTN urgency on presentation 1. R Foot ischemia- s/p angio with Popliteal artery and SFA sent placement 08/08. poor circulation to foot with single vessel run off, will require TMA. podiatry consulted. on hep ggt, statin. hold antiplatelet. NPO for surgery in AM. pain has appeared to be controlled. was starting on standing doses of MS contin. will d/c at this time and place on sliding scale as needed. adjust to optimize pain. 2. HTN urgency- now controlled. cont current management 3. constipation-likely opiate induced. cont stool softeners. small BM last night. cont stool softeners 4. Normocytic anemia- iron def anemia. s/p venofer. would hold oral supplementation in setting of constipation. no signs of bleeding. Hgb improved. monitor closely while on anticoagulation 5. DM- A1c 9.4. will need to optimize medication prior to discharge. hold oral agents. iss 6. +UCx- not symptomatic. will not treat 7. DVT ppx- hep ggt 8. PT 2 feet. will need MATEUS when medically optimized.
[2018-08-16 17:04] LABS: INR 1.21 (0.83-1.09); PROTHROMBIN TIME (PATIENT) 14.3 SEC (9.7-13.0)
[2018-08-16 17:07] LABS: ACTIVATED PTT 55.9 SECONDS (25.2-36.5)
[2018-08-16] MEDS: oxyCODONE HCL 5 MG TABLET PO PRN (18:35)
[2018-08-16] MEDS: ATORVASTATIN CA 40 MG TABLET (FP) PO SCH (22:13)
[2018-08-17] MEDS: INSULIN SLIDING SCALE (NOVOLOG) 1 VIAL SQ SCH ×4 (06:47→21:55)
[2018-08-17 07:45] LABS: HEMATOCRIT 31.6 % (32.4-45.2); HEMOGLOBIN 9.8 GM/dL (10.7-15.3); MEAN CELL VOLUME 83.9 fl (80-96); MEAN PLT VOLUME 7.6 fl (7.5-11.1); PLATELET COUNT 106 K/MM3 (134-434); RBC 3.77 M/mm3 (3.60-5.2); RDW 15.4 % (11.6-15.6); WHITE BLOOD COUNT 22.7 K/mm3 (4.0-10.0)
[2018-08-17 07:51] LABS: ANION GAP 10 MMOL/L (8-16); BLOOD UREA NITROGEN 19 mg/dL (7-18); CALCIUM 8.7 mg/dL (8.5-10.1); CHLORIDE 95 mmol/L (98-107); CO2 29 mmol/L (21-32); CREATININE 0.9 mg/dL (0.55-1.3); GLUCOSE,RANDOM 185 mg/dL (74-106); MAGNESIUM 2.4 mg/dL (1.8-2.4); PHOSPHOROUS 3.1 mg/dL (2.5-4.9); SODIUM 134 mmol/L (136-145)
--- NOTE | 2018-08-17 10:29 | PN ---
Physical Exam: SUBJECTIVE: Patient seen and examined at bedside. Patient is slow to respond to questions and appears to be withdrawn emotionally. She is arousable but refuses to answer questions or respond to commands. No acute changes overnight. Has not yet had a BM. When questioned, complains of mild abdominal pain. OBJECTIVE: Vital Signs Period Temp Pulse Resp BP Sys/Reyes Pulse Ox Last 24 Hr 97.9 F-98.7 F 74-84 17-18 155-179/61-80 93 GENERAL: Unable to assess mental status due to patient not wanting to discuss it with me, no acute distress EYES: PERRL, EOMI ENT: Moist mucus membranes LUNGS: CTA HEART: RRR, mild systolic murmur noted on exam ABDOMEN: Mildly distended but soft, EXTREMITIES: 1+ pulses in R DP and PT, R great toe, 3rd, 4th, and 5th toes appear gangrenous but unchanged from yesterday; L leg appears normal with 1+ pulses Laboratory Results - last 24 hr 08/16/18 08/16/18 08/16/18 04:00 11:56 15:40 WBC RBC Hgb Hct MCV MCH MCHC RDW Plt Count MPV PT with INR 14.30 H INR 1.21 H PTT (Actin FS) 55.9 H Sodium Potassium Chloride Carbon Dioxide Anion Gap BUN Creatinine Creat Clearance w eGFR POC Glucometer 212 Random Glucose Calcium Phosphorus Magnesium Stool Occult Blood Negative 08/16/18 08/16/18 08/17/18 17:10 22:06 06:30 WBC 22.7 H RBC 3.77 Hgb 9.8 L Hct 31.6 L MCV 83.9 MCH 26.0 MCHC 31.0 L RDW 15.4 Plt Count 106 L D MPV 7.6 D PT with INR INR PTT (Actin FS) Sodium Potassium Chloride Carbon Dioxide Anion Gap BUN Creatinine Creat Clearance w eGFR POC Glucometer 208 251 Random Glucose Calcium Phosphorus Magnesium Stool Occult Blood 08/17/18 08/17/18 08/17/18 06:30 06:30 06:44 WBC RBC Hgb Hct MCV MCH MCHC RDW Plt Count MPV PT with INR INR PTT (Actin FS) 45.5 H Sodium 134 L Potassium 4.0 Chloride 95 L Carbon Dioxide 29 Anion Gap 10 BUN 19 H Creatinine 0.9 Creat Clearance w eGFR > 60 POC Glucometer 205 Random Glucose 185 H Calcium 8.7 Phosphorus 3.1 Magnesium 2.4 Stool Occult Blood Active Medications Generic Name Dose Route Start Last Admin Trade Name Freq PRN Reason Stop Dose Admin Acetaminophen 650 mg 08/16/18 09:17 Tylenol - PO 08/19/18 09:16 Q4H PRN PAIN 6-10 Amlodipine Besylate 10 mg 08/10/18 10:00 08/16/18 12:21 Norvasc - PO 10 mg DAILY [facility] Administration Atorvastatin Calcium 40 mg 08/13/18 22:00 08/16/18 22:13 Lipitor - PO 40 mg HS [facility] Administration Docusate Sodium 100 mg 08/09/18 22:00 08/16/18 22:13 Colace - PO 100 mg BID [facility] Administration Heparin Sodium (Porcine) 1,000 unit 08/11/18 10:28 08/16/18 08:56 Heparin - IVPUSH 1,000 unit PRN PRN Administration Heparin Heparin Sodium (Porcine) 5,000 unit 08/11/18 10:28 08/11/18 19:47 Heparin - IVPUSH 5,000 unit PRN PRN Administration Heparin Hydrochlorothiazide 50 mg 08/17/18 10:00 Hctz - PO DAILY [facility] Heparin Sodium (Porcine) 25, 500 mls @ 24.97 mls/hr 08/12/18 16:38 08/16/18 17:38 000 unit/ Sodium Chloride IV Not Given TITR [facility] Protocol 19 UNIT/KG/HR Insulin Aspart 1 vial 08/09/18 22:00 08/17/18 06:47 Novolog Vial Sliding Scale - SQ 4 units ACHS [facility] Administration Protocol Insulin Detemir 5 units 08/17/18 22:00 Levemir Vial SQ HS [facility] Losartan Potassium 100 mg 08/17/18 10:00 Cozaar - PO DAILY [facility] Methylnaltrexone [place] 8 mg 08/16/18 10:00 08/16/18 13:22 Relistor - SQ 8 mg DAILY [facility] Administration Ondansetron HCl 4 mg 08/09/18 20:13 08/16/18 12:25 Zofran Injection IVPUSH 4 mg Q6H PRN Administration NAUSEA AND/OR VOMITING Oxycodone HCl 10 mg 08/16/18 09:17 08/16/18 18:35 Roxicodone - PO 10 mg Q4H PRN Administration PAIN 6-10 Polyethylene Glycol 17 gm 08/14/18 10:00 08/16/18 22:13 Miralax (For Daily Use) - PO 17 grams BID FLYNN Administration Senna 1 tab 08/09/18 22:00 08/16/18 22:13 Senna - PO 1 tab BID FLYNN Administration ASSESSMENT/PLAN: 83 year old woman with a history of type 2 DM, HTN admitted for ischemic R foot #Right Lower Extremity Ischemia: progressing today compared to earlier in the week -discussed with Dr. Yusuf and patient's 4 daughters yesterday. Family was given the option to do TMA vs BKA, and they were given the risks and benefits. Family opted for BKA assessment; d/w dr dietz, patient's family wants to discuss surgical option - will wait prior to proceeding. -pain control with oxycodone 10mg -heparin ggt -continue atorvastatin #Abdominal Pain: likely constipation as a source, patient has not yet had BM, could be related to DM -Physical therapy for assistance with movement -continue bowel regimen -continue relistor #DM: stable -levemir 5mg HS -ISS -BGM ACHS #HTN: not hypertensive -cont amlodipine -cont HCTZ -cont losartan #FEN -no standing fluids -diabetic diet -lytes normal #Prophylaxis -on heparin ggt #Disposition -continue to monitor on med surg -DC pending surgical eval and decision for surgical procedure Visit type - Emergency Visit Emergency Visit: No - New Patient This patient is new to me today: No - Critical Care Critical Care patient: No
[2018-08-17] MEDS ORDERED: PT OWN MED DRAWER 7, Y5N ONE (10:31)
[2018-08-17] MEDS: LOSARTAN POTASSIUM 50 MG TABLET (FP) PO SCH (10:44)
[2018-08-17] MEDS: HYDROCHLOROTHIAZIDE 25 MG TABLET (FP) PO SCH (10:44)
[2018-08-17] MEDS: SENNOSIDES 8.6MG TABLET (FP) PO SCH ×2 (10:44→21:54)
[2018-08-17] MEDS: DOCUSATE SODIUM 100 MG CAPSULE (FP) PO SCH ×2 (10:44→21:54)
[2018-08-17] MEDS: Methylnaltrexone Bromide 12 MG/0.6 ML KIT SQ SCH (10:44)
[2018-08-17] MEDS: amLODIPine BESYLATE 10 MG TABLET (FP) PO SCH (10:44)
[2018-08-17] MEDS: POLYETHYLENE GLYCOL 3350 119 GM BTL PO SCH ×2 (10:45→21:54)
[2018-08-17] MEDS: HEPARIN NA (PORCINE) 5,000 UNITS/ML 1ML VIAL IVPUSH PRN ×2 (11:25→18:45)
[2018-08-17] MEDS: HEPARIN - 25,000 UNIT in SODIUM CHLORIDE 495 ML IV SCH ×2 (11:26→18:48)
--- NOTE | 2018-08-17 11:57 | PN ---
Teaching Attending Note Name of Resident: Todd Argueta ATTENDING PHYSICIAN STATEMENT I saw and evaluated the patient. I reviewed the resident's note and discussed the case with the resident. I agree with the resident's findings and plan as documented. SUBJECTIVE:c/o constipation. no BM for 4 days. states she does not have an amputation of her leg. denies Cp, SOB, fever, chills, N/V/C/D OBJECTIVE: Last Vital Signs Temp Pulse Resp BP Pulse Ox 98.3 F 84 18 155/63 93 L 08/16/18 22:00 08/16/18 22:00 08/16/18 22:00 08/16/18 22:00 08/16/18 21:00 General NAD, resting comfortable extremities RLE necrosis of the 1st hallux, 3rd-5th digits have necrosis at base. would not allow me to palpate the foot. refuses physical exam of the abdomen ASSESSMENT AND PLAN: 83 year old woman with a history of type 2 DM, HTN admitted for Right foot ischemia and found to have HTN urgency on presentation 1. R Foot ischemia- s/p angio with Popliteal artery and SFA sent placement 08/08. poor circulation to foot with single vessel run off, had lengthy discussion with daughters present with podiatry and vascular surgery. At first family refused TMA and wanted BKA because did not want the stress of going through 2 surgeries. now patient is stating she does not want BKA. d/w pt and explained the risks of loosing more of her limb and risk of infection. asked pt if she understands these risks and then stated she did not want to talk anymore and wanted to be left alone. will have to discuss iwth family as well and surgeon about potential risks and ensure they understand. cont with hep ggt. will hold plavix in case surgery is desired. pain controlled. 2. leukocytosis- concern for infection setting in the seting of gangrene of the foot. no fevers. check Bcx. will repeat labs 3. HTN urgency-above goal. will increase HCTZ, make losartan QD instead of BID to improve on compliance on discharge 4. constipation-likely opiate induced. cont stool softeners. will give enema today. cont relistor, stool softeners 5. Normocytic anemia- iron def anemia. s/p venofer. would hold oral supplementation in setting of constipation. no signs of bleeding. Hgb improved. monitor closely while on anticoagulation 6. DM- A1c 9.4. re-start levemir 5 units HS. titrate as needed. hold oral agents. iss 7. +UCx- not symptomatic. will not treat 8. DVT ppx- hep ggt 9. PT 2 feet. will need MATEUS when medically optimized.
--- NOTE | 2018-08-17 17:19 | PN ---
Progress Note (short form) - Note Progress Note: FUV right foot. Patient seen at 8:30am this morning. vss, Tmax 98.3 +gangarene right foot toe 1,3,4,5, +pvd, elevated wbc=22.5 gangarene right foot Read medicine note. Patient / Family refusing amputation of leg. Medicine to discuss with family and figure out what they want done. Concerned about elevated WBC. Discussed with vascular. apparently family considering [place]. Recommend ID consult.
--- NOTE | 2018-08-17 17:51 | PN ---
Progress Note (short form) - Note Progress Note: Vascular Surgery Pt seen and examined today WBC is 22. Spoke to Daughter at bedside. She said pt currently is refusing all surgery I explained to them that the most definitive surgery is a BKA. Daughter said that she will speak to rest of family and decide. She also said that family might send pt to [place]. William Cates DO
[2018-08-17] MEDS: ATORVASTATIN CA 40 MG TABLET (FP) PO SCH (21:54)
[2018-08-17] MEDS: INSULIN (LEVEMIR) 100 UNITS/ML UNITS SQ SCH (21:54)
[2018-08-18] MEDS: INSULIN SLIDING SCALE (NOVOLOG) 1 VIAL SQ SCH ×4 (06:04→21:52)
[2018-08-18] MEDS ORDERED: PT OWN MED DRAWER 7, Y5N ONE (09:01)
[2018-08-18] MEDS: HYDROCHLOROTHIAZIDE 25 MG TABLET (FP) PO SCH (09:28)
[2018-08-18] MEDS: amLODIPine BESYLATE 10 MG TABLET (FP) PO SCH (09:28)
[2018-08-18] MEDS: LOSARTAN POTASSIUM 50 MG TABLET (FP) PO SCH (09:28)
[2018-08-18] MEDS: DOCUSATE SODIUM 100 MG CAPSULE (FP) PO SCH ×2 (09:29→21:34)
[2018-08-18] MEDS: SENNOSIDES 8.6MG TABLET (FP) PO SCH ×2 (09:29→21:34)
[2018-08-18] MEDS: POLYETHYLENE GLYCOL 3350 119 GM BTL PO SCH ×2 (09:31→21:34)
[2018-08-18] MEDS: Methylnaltrexone Bromide 12 MG/0.6 ML KIT SQ SCH (12:13)
[2018-08-18 14:42] LABS: BASO % 0.2 % (0-2.0); EOS % 0.1 % (0-4.5); HEMOGLOBIN 9.3 GM/dL (10.7-15.3); LYMPH % 5.4 % (8-40); MCH 26.1 pg (25.7-33.7); MEAN CELL VOLUME 84.2 fl (80-96); MONO % 6.6 % (3.8-10.2); NEUT % 87.7 % (42.8-82.8); RBC 3.56 M/mm3 (3.60-5.2); RDW 15.6 % (11.6-15.6); WHITE BLOOD COUNT 21.4 K/mm3 (4.0-10.0)
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
[2018-08-18] MEDS: CLOPIDOGREL BISULFATE 75 MG TABLET (FP) PO SCH (15:33)
[2018-08-18 15:34] LABS: PLATELET ESTIMATE UNABLE TO ENUMERATE
--- NOTE | 2018-08-18 15:58 | CON.ID ---
Consult Consult Specialty:: infectious disease Referred by:: hospitalist Reason for Consultation:: leukocytosis - History of Present Illness Chief Complaint: right foot pain History of Present Illness: 83 yo female retired in [place] PMH NIDDM, htn, gerd comes yearly to [place] developed right foot pain about 3 weeks ago, seen in ED in the city given pain meds pain persisted she came to [facility] and was found to have an ischemic right foot she is s/p right SFA and popliteal angioplasty and stent placement she was offered TMA of her foot and refuses I am asked to see her for elevated WBC, no fevers she notes poor appetite and chronic foot pain had 2 bms today after laxatives were administered no SOB, no dysuria UNKNOWN pen allergy at age 31 when she had an ectopic hospitalized last year for hyperglycemia in [facility] - History Source History Provided By: Patient, Family Member Limitations to Obtaining History: No Limitations - Past Medical History Cardio/Vascular: Yes: HTN Gastrointestinal: Yes: GERD Endocrine: Yes: Diabetes Mellitus - Past Surgical History Past Surgical History: Yes: Additional Surgical History: tubal ligation - Alcohol/Substance Use Hx Alcohol Use: No - Smoking History Smoking history: Never smoked Have you smoked in the past 12 months: No Home Medications - Allergies Allergies/Adverse Reactions: Allergies Allergy/AdvReac Type Severity Reaction Status Date / Time Penicillins Allergy Verified 08/07/18 12:35 - Home Medications Home Medications: Ambulatory Orders Losartan Potassium [Cozaar -] 50 mg PO BID 08/07/18 Omeprazole Magnesium [Prilosec Otc] 20 mg PO DAILY 08/07/18 Oxybutynin Chloride [Oxybutynin Chloride ER] 5 mg PO DAILY 08/07/18 Sitagliptin Phos/Metformin HCl [Janumet 50-1,000 mg Tablet] 1 each PO BID Gabapentin [Neurontin] 1 cap PO BID 08/14/18 Ibuprofen 600 mg PO Q6H PRN 08/14/18 Insulin Glargine,Hum.rec.anlog [Lantus Solostar PEN (NF)] 10 units SQ HS Oxycodone HCl/Acetaminophen [Percocet 5-325 mg Tablet] 1 tab PO Q6H PRN Repaglinide 1 tab PO TID 08/14/18 Review of Systems - Review of Systems Constitutional: denies: Chills, Fever Eyes: reports: No Symptoms HENT: reports: No Symptoms Cardiovascular: denies: Chest Pain Respiratory: denies: Cough, SOB Gastrointestinal: reports: Abdominal Pain Genitourinary: reports: No Symptoms Musculoskeletal: reports: Other (right foot stabbing pain) Physical Exam Vital Signs: Vital Signs Temperature 98.9 F 08/18/18 14:05 Pulse Rate 81 08/18/18 14:05 Respiratory Rate 18 08/18/18 14:05 Blood Pressure 130/51 L 08/18/18 14:05 O2 Sat by Pulse Oximetry (%) 92 L 08/18/18 09:00 Constitutional: Yes: Well Nourished, No Distress, Calm Eyes: Yes: Conjunctiva Clear HENT: Yes: Atraumatic, Normocephalic Neck: Yes: Supple, Trachea Midline Cardiovascular: Yes: Regular Rate and Rhythm Respiratory: Yes: Regular, CTA Bilaterally Gastrointestinal: Yes: Soft, Other (RUQ tenderness to palpation) ...Rectal Exam: Yes: Deferred Extremities: Yes: Other (right foot with necrotic toes 1 3-5- dry, no odor) Edema: No Psychiatric: Yes: Alert Labs: CBC, BMP 08/18/18 14:10 08/17/18 06:30 Imaging - Results Chest X-ray: Report Reviewed, Image Reviewed Problem List - Problems (1) Leukocytosis Code(s): D72.829 - ELEVATED WHITE BLOOD CELL COUNT, UNSPECIFIED (2) Lower limb ischemia Code(s): I99.8 - OTHER DISORDER OF CIRCULATORY SYSTEM Assessment/Plan leukocytosis stat RUQ sonogram- r/o cholycystitis check cxray and labs including LFTs ?thrombocytopenia-repeat cbc s/p 2 stents RLE- refusing amputation d/w daughter at bedside d/w hospitalist
[2018-08-18] MEDS: HEPARIN - 25,000 UNIT in SODIUM CHLORIDE 495 ML IV SCH ×2 (16:45→16:51)
[2018-08-18 17:28] LABS: BASO % 0.3 % (0-2.0); EOS % 0.1 % (0-4.5); HEMATOCRIT 29.8 % (32.4-45.2); HEMOGLOBIN 9.5 GM/dL (10.7-15.3); LYMPH % 6.2 % (8-40); MCH 26.8 pg (25.7-33.7); MCHC 31.8 g/dl (32.0-36.0); MEAN CELL VOLUME 84.1 fl (80-96); MONO % 6.9 % (3.8-10.2); NEUT % 86.5 % (42.8-82.8); RBC 3.54 M/mm3 (3.60-5.2); RDW 15.7 % (11.6-15.6); WHITE BLOOD COUNT 19.3 K/mm3 (4.0-10.0)
[2018-08-18 17:36] LABS: ALBUMIN 2.1 g/dl (3.4-5.0); BILIRUBIN,DIRECT 0.2 mg/dL (0.0-0.2); BILIRUBIN,TOTAL 0.4 mg/dL (0.2-1); TOT PROT 6.5 g/dl (6.4-8.2)
[2018-08-18] MEDS ORDERED: ARGATROBAN - 250,000 MCG in SODIUM CHLORIDE 247.5 ML IVPB SCH ×3 (18:30→18:54)
--- NOTE | 2018-08-18 18:39 | HOSP ---
Subjective - Review of Symptoms Events since last encounter: CBC repeated on patient . Plt dropped to 45 K. patient is on heparin gtt and HIT is suspected . - stop heparin gtt immediately - hold any heparin products even catheter/tube flushes - start Argatroban 2 mcg/kg/min. renal function is normal - check stat aPTT - keep PTT 55-100. - will consult hematolgy Physical Examination Vital Signs: Labs: CBC, BMP 08/18/18 16:50 08/17/18 06:30
[2018-08-18 19:44] LABS: PLATELET ESTIMATE ADEQUATE
[2018-08-18] MEDS: ATORVASTATIN CA 40 MG TABLET (FP) PO SCH (21:34)
[2018-08-18] MEDS: oxyCODONE HCL 5 MG TABLET PO PRN (21:35)
[2018-08-18] MEDS: INSULIN (LEVEMIR) 100 UNITS/ML UNITS SQ SCH (21:51)
--- NOTE | 2018-08-18 22:29 | CONSULT ---
Consult Consult Specialty:: internal medicine Referred by:: Dr. Crow Reason for Consultation:: ?HIT - History of Present Illness Chief Complaint: Ischemic right foot History of Present Illness: 83M with HTN, DM admitted with ischemic right foot. Underwent SFA and popliteal angioplasty with stent placement. Refused TMA. Has been on heparin gtt. Noted to have downtrending plt count. Plt count was normal until yesterday when it was found to be 106 and is 43 today. Pt was switched from UFH to argatroban due to concern for HIT. Pt c/o pain in right toe but denies bleeding, LE swelling, SOB, CP. - History Source History Provided By: Patient, Medical Record Limitations to Obtaining History: No Limitations - Past Medical History Cardio/Vascular: Yes: HTN Gastrointestinal: Yes: GERD Endocrine: Yes: Diabetes Mellitus - Past Surgical History Past Surgical History: Yes: Additional Surgical History: tubal ligation - Alcohol/Substance Use Hx Alcohol Use: No - Smoking History Smoking history: Never smoked Have you smoked in the past 12 months: No Home Medications - Allergies Allergies/Adverse Reactions: Allergies Allergy/AdvReac Type Severity Reaction Status Date / Time Penicillins Allergy Verified 08/07/18 12:35 - Home Medications Home Medications: Ambulatory Orders Losartan Potassium [Cozaar -] 50 mg PO BID 08/07/18 Omeprazole Magnesium [Prilosec Otc] 20 mg PO DAILY 08/07/18 Oxybutynin Chloride [Oxybutynin Chloride ER] 5 mg PO DAILY 08/07/18 Sitagliptin Phos/Metformin HCl [Janumet 50-1,000 mg Tablet] 1 each PO BID Gabapentin [Neurontin] 1 cap PO BID 08/14/18 Ibuprofen 600 mg PO Q6H PRN 08/14/18 Insulin Glargine,Hum.rec.anlog [Lantus Solostar PEN (NF)] 10 units SQ HS Oxycodone HCl/Acetaminophen [Percocet 5-325 mg Tablet] 1 tab PO Q6H PRN Repaglinide 1 tab PO TID 08/14/18 Physical Exam Vital Signs: Vital Signs Temperature 100.1 F H 08/18/18 20:19 Pulse Rate 82 08/18/18 20:19 Respiratory Rate 18 08/18/18 20:19 Blood Pressure 144/69 08/18/18 20:19 O2 Sat by Pulse Oximetry (%) 92 L 08/18/18 09:00 Constitutional: Yes: No Distress Eyes: Yes: WNL Cardiovascular: Yes: Regular Rate and Rhythm Respiratory: Yes: CTA Bilaterally Gastrointestinal: Yes: Soft Extremities: Yes: Other (right first toe with dry gangrene) Labs: CBC, BMP 08/18/18 16:50 08/17/18 06:30 Assessment/Plan 83M with HTN, DM admitted with ischemic right foot. Developed thrombocytopenia on heparin. Peripheral smear with numerous platelet clumps. Plt count in citrate was requested. It is 297. This is consistent with pseudothrombocytopenia and, therefore, there is no concern for HIT. Can switch back to UFH from argatroban.
[2018-08-18] MEDS ORDERED: HEPARIN NA (PORCINE) 5,000 UNITS/ML 1ML VIAL IVPUSH PRN (22:50)
--- NOTE | 2018-08-18 23:38 | PN ---
Progress Note (short form) - Note Progress Note: Pt. Platelets dropped to 45k. Peripheral smear showed large platelet clumps. HIT was ruled out after discussion with Dr. Sierra ([phone]) as Platelet count retested in citrate was 297K, consistent with pseudothrombocytopenia. Agotroban was discontinued and Heparin drip was restarted. RUQ US results were suggestive of findings for cholecystitis. Surgeon aviation ordnance officer Dr. Benedict was called and it was recommended to make the Pt. NPO, c/w Flagyl and Levaquin for possible procedure on Monday pending right foot ischemia work up as the findings were not concerning for an acute process and the Pt. is on appropriate antibiotics. LFTs were wnl.
[2018-08-19] MEDS: HEPARIN - 25,000 UNIT in SODIUM CHLORIDE 495 ML IV SCH (02:14)
[2018-08-19] MEDS: INSULIN SLIDING SCALE (NOVOLOG) 1 VIAL SQ SCH ×4 (06:03→20:02)
[2018-08-19 08:04] LABS: BASO % 0.2 % (0-2.0); EOS % 0.2 % (0-4.5); HEMATOCRIT 30.1 % (32.4-45.2); HEMOGLOBIN 9.5 GM/dL (10.7-15.3); LYMPH % 5.2 % (8-40); MCH 26.9 pg (25.7-33.7); MCHC 31.6 g/dl (32.0-36.0); MEAN CELL VOLUME 84.9 fl (80-96); MONO % 9.1 % (3.8-10.2); NEUT % 85.3 % (42.8-82.8); RBC 3.55 M/mm3 (3.60-5.2); RDW 15.8 % (11.6-15.6); WHITE BLOOD COUNT 16.5 K/mm3 (4.0-10.0)
[2018-08-19 08:36] LABS: ALBUMIN 2.1 g/dl (3.4-5.0); ALK PHOS 63 U/L (45-117); ANION GAP 5 MMOL/L (8-16); BILIRUBIN,TOTAL 0.6 mg/dL (0.2-1); BLOOD UREA NITROGEN 31 mg/dL (7-18); CALCIUM 8.1 mg/dL (8.5-10.1); CHLORIDE 98 mmol/L (98-107); CO2 29 mmol/L (21-32); CREATININE 0.8 mg/dL (0.55-1.3); GLUCOSE,RANDOM 145 mg/dL (74-106); POTASSIUM 3.8 mmol/L (3.5-5.1); SGOT/AST 34 U/L (15-37); SGPT/ALT 25 U/L (13-61); SODIUM 132 mmol/L (136-145); TOT PROT 6.6 g/dl (6.4-8.2)
[2018-08-19] MEDS: HEPARIN NA (PORCINE) 5,000 UNITS/ML 1ML VIAL IVPUSH PRN (10:09)
[2018-08-19] MEDS: amLODIPine BESYLATE 10 MG TABLET (FP) PO SCH ×2 (10:10→14:53)
[2018-08-19] MEDS: CLOPIDOGREL BISULFATE 75 MG TABLET (FP) PO SCH ×2 (10:10→14:54)
[2018-08-19] MEDS: LOSARTAN POTASSIUM 50 MG TABLET (FP) PO SCH ×2 (10:10→14:54)
[2018-08-19] MEDS: HYDROCHLOROTHIAZIDE 25 MG TABLET (FP) PO SCH ×2 (10:10→14:54)
[2018-08-19] MEDS: SENNOSIDES 8.6MG TABLET (FP) PO SCH ×2 (10:11→22:31)
[2018-08-19] MEDS: DOCUSATE SODIUM 100 MG CAPSULE (FP) PO SCH ×2 (10:11→22:31)
[2018-08-19] MEDS: POLYETHYLENE GLYCOL 3350 119 GM BTL PO SCH ×2 (10:11→22:31)
--- NOTE | 2018-08-19 10:47 | PN ---
Physical Exam: SUBJECTIVE: Patient seen and examined at bedside. Heparin drip temporarily discontinued overnight as HIT was thought to have occurred. Heparin drp restarted. OBJECTIVE: Vital Signs Period Temp Pulse Resp BP Sys/Reyes Pulse Ox Last 24 Hr 98.4 F-100.1 F 76-86 18-18 130-153/51-70 96 GENERAL: Awake Alert NAD HEAD: NC/AT EYES: EOMI No scleral icterus LUNGS: Decreased BS at bases HEART: RRR, No MRG S1S2 ABDOMEN: ++ Toure's sign EXTREMITIES: Right large toe dark, cool to touch, no sensation, 3rd toe dorsum black no sensation, 4th and 5th toes black cool to touch no sensation. Laboratory Results - last 24 hr 08/18/18 08/18/18 08/18/18 12:07 14:10 15:30 WBC 21.4 H RBC 3.56 L Hgb 9.3 L Hct 30.0 L MCV 84.2 MCH 26.1 MCHC 31.0 L RDW 15.6 Plt Count No Result Required. MPV No Result Required. Absolute Neuts (auto) 18.8 H Total Counted 100 Neutrophils % 87.7 H D Neutrophils % (Manual) 92.0 H Band Neutrophils % 1.0 Lymphocytes % 5.4 L D Lymphocytes % (Manual) 4.0 L Monocytes % 6.6 Monocytes % (Manual) 2 L Eosinophils % 0.1 D Eosinophils % (Manual) 1.0 Basophils % 0.2 Nucleated RBC % 0 Platelet Estimate Unable to enumerate Plt Clumps, Citrate Platelet Comment Mod plt clumping PTT (Actin FS) Sodium Potassium Chloride Carbon Dioxide Anion Gap BUN Creatinine Creat Clearance w eGFR POC Glucometer 197 Random Glucose Calcium Total Bilirubin Direct Bilirubin AST ALT Alkaline Phosphatase Total Protein Albumin Stool Occult Blood Negative 08/18/18 08/18/18 08/18/18 16:50 16:50 19:10 WBC 19.3 H RBC 3.54 L Hgb 9.5 L Hct 29.8 L MCV 84.1 MCH 26.8 MCHC 31.8 L RDW 15.7 H Plt Count MPV Absolute Neuts (auto) 16.6 H Total Counted Neutrophils % 86.5 H Neutrophils % (Manual) Band Neutrophils % Lymphocytes % 6.2 L Lymphocytes % (Manual) Monocytes % 6.9 Monocytes % (Manual) Eosinophils % 0.1 Eosinophils % (Manual) Basophils % 0.3 Nucleated RBC % 0 Platelet Estimate Adequate Plt Clumps, Citrate Platelet Comment PTT (Actin FS) 29.8 Sodium Potassium Chloride Carbon Dioxide Anion Gap BUN Creatinine Creat Clearance w eGFR POC Glucometer Random Glucose Calcium Total Bilirubin 0.4 Direct Bilirubin 0.2 AST 31 ALT 25 Alkaline Phosphatase 60 Total Protein 6.5 Albumin 2.1 L Stool Occult Blood 08/18/18 08/18/18 08/18/18 20:00 21:25 21:25 WBC RBC Hgb Hct MCV MCH MCHC RDW Plt Count MPV Absolute Neuts (auto) Total Counted Neutrophils % Neutrophils % (Manual) Band Neutrophils % Lymphocytes % Lymphocytes % (Manual) Monocytes % Monocytes % (Manual) Eosinophils % Eosinophils % (Manual) Basophils % Nucleated RBC % Platelet Estimate Plt Clumps, Citrate 297.0 Platelet Comment PTT (Actin FS) 43.2 H Sodium Potassium Chloride Carbon Dioxide Anion Gap BUN Creatinine Creat Clearance w eGFR POC Glucometer 219 Random Glucose Calcium Total Bilirubin Direct Bilirubin AST ALT Alkaline Phosphatase Total Protein Albumin Stool Occult Blood 08/18/18 08/19/18 08/19/18 21:41 05:33 06:00 WBC 16.5 H RBC 3.55 L Hgb 9.5 L Hct 30.1 L MCV 84.9 MCH 26.9 MCHC 31.6 L RDW 15.8 H Plt Count MPV Absolute Neuts (auto) 14.1 H Total Counted Neutrophils % 85.3 H Neutrophils % (Manual) Band Neutrophils % Lymphocytes % 5.2 L Lymphocytes % (Manual) Monocytes % 9.1 Monocytes % (Manual) Eosinophils % 0.2 D Eosinophils % (Manual) Basophils % 0.2 Nucleated RBC % 0 Platelet Estimate Plt Clumps, Citrate Platelet Comment Mod plt clumping PTT (Actin FS) Sodium Potassium Chloride Carbon Dioxide Anion Gap BUN Creatinine Creat Clearance w eGFR POC Glucometer 218 144 Random Glucose Calcium Total Bilirubin Direct Bilirubin AST ALT Alkaline Phosphatase Total Protein Albumin Stool Occult Blood 08/19/18 08/19/18 06:00 08:35 WBC RBC Hgb Hct MCV MCH MCHC RDW Plt Count MPV Absolute Neuts (auto) Total Counted Neutrophils % Neutrophils % (Manual) Band Neutrophils % Lymphocytes % Lymphocytes % (Manual) Monocytes % Monocytes % (Manual) Eosinophils % Eosinophils % (Manual) Basophils % Nucleated RBC % Platelet Estimate Plt Clumps, Citrate Platelet Comment PTT (Actin FS) 37.6 H Sodium 132 L Potassium 3.8 Chloride 98 Carbon Dioxide 29 Anion Gap 5 L BUN 31 H Creatinine 0.8 Creat Clearance w eGFR > 60 POC Glucometer Random Glucose 145 H Calcium 8.1 L Total Bilirubin 0.6 Direct Bilirubin AST 34 ALT 25 Alkaline Phosphatase 63 Total Protein 6.6 Albumin 2.1 L Stool Occult Blood Active Medications Generic Name Dose Route Start Last Admin Trade Name Freq PRN Reason Stop Dose Admin Amlodipine Besylate 10 mg 08/10/18 10:00 08/18/18 09:28 Norvasc - PO 10 mg DAILY FLYNN Administration Atorvastatin Calcium 40 mg 08/13/18 22:00 08/18/18 21:34 Lipitor - PO 40 mg HS FLYNN Administration Clopidogrel Bisulfate 75 mg 08/18/18 15:00 08/18/18 15:33 Plavix - PO 75 mg DAILY FLYNN Administration Docusate Sodium 100 mg 08/09/18 22:00 08/19/18 10:11 Colace - PO Not Given BID FLYNN Heparin Sodium (Porcine) 1,000 unit 08/18/18 22:50 Heparin - IVPUSH PRN PRN Heparin Heparin Sodium (Porcine) 5,000 unit 08/18/18 22:50 08/19/18 10:09 Heparin - IVPUSH 5,000 unit PRN PRN Administration Heparin Hydrochlorothiazide 50 mg 08/17/18 10:00 08/18/18 09:28 Hctz - PO 50 mg DAILY FLYNN Administration Levofloxacin 500 mg in 100 mls @ 100 mls/hr 08/18/18 16:00 08/19/18 10:10 Levaquin 500 Mg Premixed Ivpb - IVPB 100 mls/hr DAILY FLYNN Administration Protocol Metronidazole 500 mg in 100 mls @ 100 mls/hr 08/18/18 16:20 08/19/18 10:10 Flagyl 500mg Premixed Ivpb - IVPB 100 mls/hr Q8H-IV FLYNN Administration Heparin Sodium (Porcine) 25, 500 mls @ 16 mls/hr 08/19/18 02:00 08/19/18 10: 09 000 unit/ Sodium Chloride IV 950 unit/hr TITR FLYNN 19 mls/hr Titration Protocol 800 UNIT/HR Insulin Aspart 1 vial 08/09/18 22:00 08/19/18 06:03 Novolog Vial Sliding Scale - SQ Not Given ACHS [facility] Protocol Insulin Detemir 5 units 08/17/18 22:00 08/18/18 21:51 Levemir Vial SQ 5 units HS FLYNN Administration Losartan Potassium 100 mg 08/17/18 10:00 08/18/18 09:28 Cozaar - PO 100 mg DAILY FLYNN Administration Polyethylene Glycol 17 gm 08/14/18 10:00 08/19/18 10:11 Miralax (For Daily Use) - PO Not Given BID FLYNN Senna 1 tab 08/09/18 22:00 08/19/18 10:11 Senna - PO Not Given BID FLYNN ASSESSMENT/PLAN: This is an 83 year old woman with a history of type 2 DM, HTN who presented to the ED with right foot pain. 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 - Plavix 75 mg po daily-hold in light of tentative surgery. 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 Pt. Platelets dropped to 45k however when retested in citrate, count was 297K. Hematology on board. --Per vascular surgery--> TMA, podiatry consult for necrosis of R big toe, 4th and 5th toes r foot. -Dr Daugherty on board, TMA was planned however pt declined and opted for a BKA. Pt and family ultimately refused BKA and desired no surgical intervention in hopes of autoamputation. # Cholecystitis -Cholelithiasis with pericholecystic fluid with mild thickening of the gallbladder alas compatible with acute cholecystitis. -NPO, tentative Lap Melanie with Dr Benedict tomorrow. Pt started on D5 1/2NS in light of diabetes history. -Levaquin/Flagyl day 2. # HTN - Norvasc 10 mg -Losartan to 100 w/ HCTZ 12.5 combo #. Type 2 DM - Metformin, Januvia held - Continue Novolog sliding scale Ucx- + for lactobacilus -Asymptomatic will not treat #FEN D5 1/2NS@75cc/hr Monitor electrolytes NPO for tentative Cholecystectomy DVT ppx: Heparin gtt Dispo: Med-surg Visit type - Emergency Visit Emergency Visit: Yes ED Registration Date: 08/07/18 Care time: The patient presented to the Emergency Department on the above date and was hospitalized for further evaluation of their emergent condition. - New Patient This patient is new to me today: No - Critical Care Critical Care patient: No - Discharge Referral Referred to [facility] Med P.C.: No
--- NOTE | 2018-08-19 11:30 | PN ---
Teaching Attending Note Name of Resident: London Pope ATTENDING PHYSICIAN STATEMENT I saw and evaluated the patient. I reviewed the resident's note and discussed the case with the resident. I agree with the resident's findings and plan as documented. SUBJECTIVE:asymptomatic. states pain is much better today. denies CP, SOB, fever , chills, N/V/C/D, foot pain 2 BM yesterday OBJECTIVE: Last Vital Signs Temp Pulse Resp BP Pulse Ox 98.4 F 83 18 138/66 96 08/19/18 08:00 08/19/18 08:00 08/19/18 08:00 08/19/18 08:00 08/18/18 21:00 General NAD Abdomen soft +RUQ tenderness with +torres sign Extremities dry gangrene of the 1st and 3rd-5th digits. tender to palpation. no drainage noted. no warmth ASSESSMENT AND PLAN: 83 year old woman with a history of type 2 DM, HTN admitted for Right foot ischemia and found to have HTN urgency on presentation 1. R Foot ischemia- s/p angio with Popliteal artery and SFA sent placement 08/08. poor circulation to foot with single vessel run off, podiatry recommended TMA or BKA which patient is refusing both. on hep ggt, plavix, statin. pain controlled 2. Acute cholecystisis- leukocytosis improved. pt pain is now more localized to RUQ from diffuse previously. surgeon notified with possible laprascopic cholecystectomy tomorrow. LFT wnl. CBD WNL. NPO. will start low dose IVF, Flagyl and levaquin day 2 (PCN allergy). appreciate ID recommendations. BCX NGTD 3. 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 plt count 297. was placed on dabigatrin but now back on hep ggt. will cont to monitor platelet count. hematology on board 4. HTN urgency-controlled. will hold diuretic while hydrating patient. cont current management. 5. constipation-likely opiate induced. +BM yesterday. cont stool softeners 6. Normocytic anemia- iron def anemia. s/p venofer. would hold oral supplementation in setting of constipation. no signs of bleeding. Hgb improved. monitor closely while on anticoagulation 7. DM- A1c 9.4. improved. cont levemir and iss. titrate as needed. hold oral agents. 8. +UCx- not symptomatic. will not treat 9. DVT ppx- hep ggt
--- NOTE | 2018-08-19 12:28 | PN ---
Progress Note (short form) - Note Progress Note: FUV right foot. . vss, Tmax 99.4 +gangarene right foot toe 1,3,4,5, +pvd, elevated wbc=16.5 gangarene right foot Still no intervention. Family undecided. Read and appreciated vascular note. Will follow till dc.
--- NOTE | 2018-08-19 14:53 | PN ---
Progress Note (short form) - Note Progress Note: continues with RUQ pain Vital Signs Period Temp Pulse Resp BP Sys/Reyes Pulse Ox Last 24 Hr 98.4 F-100.1 F 76-86 18-18 138-153/66-70 96-96 cor rrr lungs clear abd soft +ruq tenderness to palpation ext rle unchanged gangrene no erythema no drainage CBC, BMP 08/19/18 06:00 08/19/18 06:00 Microbiology 08/17/18 12:10 Blood - Peripheral Venous Blood Culture - Preliminary NO GROWTH OBTAINED AFTER 48 HOURS, INCUBATION TO CONTINUE FOR 3 DAYS. 08/17/18 11:50 Blood - Peripheral Venous Blood Culture - Preliminary NO GROWTH OBTAINED AFTER 48 HOURS, INCUBATION TO CONTINUE FOR 3 DAYS. 08/07/18 14:55 Blood - Peripheral Venous Blood Culture - Final NO GROWTH AFTER 5 DAYS INCUBATION 08/07/18 13:15 Blood - Peripheral Venous Blood Culture - Final NO GROWTH AFTER 5 DAYS INCUBATION 08/07/18 14:06 Urine - Urine Clean Catch Urine Culture - Final Lactobacillus Species sono acute cholycystitis a/p cholycystitis continue levaquin and flagyl surgery consult pending leukocytosis improving gangrene RLE unchanged pen allergy d/w daughter at bedside Problem List - Problems (1) Leukocytosis Code(s): D72.829 - ELEVATED WHITE BLOOD CELL COUNT, UNSPECIFIED (2) Lower limb ischemia Code(s): I99.8 - OTHER DISORDER OF CIRCULATORY SYSTEM
[2018-08-19] MEDS: DEXTROSE 5%-0.45% SALINE 1,000 ML IV SCH (14:54)
--- NOTE | 2018-08-19 17:46 | PN ---
Progress Note, Physician Chief Complaint: Right 1st toe ischemia History of Present Illness: No new complaints today - Current Medication List Current Medications: Active Medications Amlodipine Besylate (Norvasc -) 10 mg PO DAILY [facility] Last Admin: 08/19/18 14:53 Dose: 10 mg Atorvastatin Calcium (Lipitor -) 40 mg PO HS FLYNN Last Admin: 08/18/18 21:34 Dose: 40 mg Clopidogrel Bisulfate (Plavix -) 75 mg PO DAILY FLYNN Last Admin: 08/19/18 14:54 Dose: 75 mg Docusate Sodium (Colace -) 100 mg PO BID [facility] Last Admin: 08/19/18 10:11 Dose: Not Given Heparin Sodium (Porcine) (Heparin -) 1,000 unit IVPUSH PRN PRN PRN Reason: Heparin Heparin Sodium (Porcine) (Heparin -) 5,000 unit IVPUSH PRN PRN PRN Reason: Heparin Last Admin: 08/19/18 10:09 Dose: 5,000 unit Hydrochlorothiazide (Hctz -) 50 mg PO DAILY [facility] Last Admin: 08/19/18 14:54 Dose: 50 mg Levofloxacin (Levaquin 500 Mg Premixed Ivpb -) 500 mg in 100 mls @ 100 mls/hr IVPB DAILY [facility]; Protocol Last Admin: 08/19/18 10:10 Dose: 100 mls/hr Metronidazole (Flagyl 500mg Premixed Ivpb -) 500 mg in 100 mls @ 100 mls/hr IVPB Q8H-IV FLYNN Last Admin: 08/19/18 17:21 Dose: 100 mls/hr Heparin Sodium (Porcine) 25, (000 unit/ Sodium Chloride) 500 mls @ 16 mls/hr IV TITR FLYNN; Protocol Last Titration: 08/19/18 15:00 Dose: 950 unit/hr, 19 mls/hr Dextrose/Sodium Chloride (D5-1/2ns -) 1,000 mls @ 75 mls/hr IV ASDIR FLYNN Last Admin: 08/19/18 14:54 Dose: 75 mls/hr Insulin Aspart (Novolog Vial Sliding Scale -) 1 vial SQ ACHS [facility]; Protocol Last Admin: 08/19/18 14:59 Dose: Not Given Insulin Detemir (Levemir Vial) 5 units SQ HS [facility] Last Admin: 08/18/18 21:51 Dose: 5 units Losartan Potassium (Cozaar -) 100 mg PO DAILY [facility] Last Admin: 08/19/18 14:54 Dose: 100 mg Polyethylene Glycol (Miralax (For Daily Use) -) 17 gm PO BID [facility] Last Admin: 08/19/18 10:11 Dose: Not Given Senna (Senna -) 1 tab PO BID [facility] Last Admin: 08/19/18 10:11 Dose: Not Given - Objective Vital Signs: Vital Signs Temperature 98.6 F 08/19/18 12:00 Pulse Rate 81 08/19/18 12:00 Respiratory Rate 18 08/19/18 12:00 Blood Pressure 149/67 08/19/18 12:00 O2 Sat by Pulse Oximetry (%) 96 08/19/18 09:00 Constitutional: Yes: No Distress Eyes: No: Sclera Icterus Cardiovascular: Yes: Regular Rate and Rhythm Respiratory: Yes: Regular, CTA Bilaterally Gastrointestinal: Yes: WNL, Soft. No: Tenderness, Epigastrium Extremities: Yes: Other (ischemic right great toe) Edema: No Labs: CBC, BMP 08/19/18 06:00 08/19/18 06:00 INR, PTT INR 1.21 (0.83-1.09) H 08/16/18 15:40 Assessment/Plan 83M with HTN, DM admitted with ischemic right foot. Developed thrombocytopenia on heparin. Peripheral smear yesterday with numerous platelet clumps. Plt count in citrate was requested. It is 297. This is consistent with pseudothrombocytopenia and, therefore, there is no concern for HIT. Switched back to UFH. Please send platelet count in blue top tubes in the future.
[2018-08-19] MEDS ORDERED: INSULIN (NOVOLOG) ASPART 100 UNITS/ML 10ML VIAL ONE (21:06)
[2018-08-19] MEDS: INSULIN (LEVEMIR) 100 UNITS/ML UNITS SQ SCH (22:30)
[2018-08-19] MEDS: ATORVASTATIN CA 40 MG TABLET (FP) PO SCH (22:31)
[2018-08-20] MEDS: INSULIN SLIDING SCALE (NOVOLOG) 1 VIAL SQ SCH ×5 (01:29→23:12)
[2018-08-20] MEDS: HEPARIN - 25,000 UNIT in SODIUM CHLORIDE 495 ML IV SCH ×2 (03:18→12:08)
[2018-08-20] MEDS: DEXTROSE 5%-0.45% SALINE 1,000 ML IV SCH ×2 (03:19→16:05)
[2018-08-20 06:56] LABS: ANION GAP 8 MMOL/L (8-16); BLOOD UREA NITROGEN 17 mg/dL (7-18); CALCIUM 7.9 mg/dL (8.5-10.1); CHLORIDE 94 mmol/L (98-107); CO2 30 mmol/L (21-32); CREATININE 0.7 mg/dL (0.55-1.3); GLUCOSE,RANDOM 241 mg/dL (74-106); MAGNESIUM 2.2 mg/dL (1.8-2.4); POTASSIUM 4.1 mmol/L (3.5-5.1); SODIUM 132 mmol/L (136-145)
[2018-08-20] MEDS ORDERED: INSULIN (LEVEMIR) 100 UNITS/ML UNITS SQ ONE (06:57)
[2018-08-20] MEDS ORDERED: INSULIN (NOVOLOG) ASPART 100 UNITS/ML 10ML VIAL ONE ×2 (06:57→12:13)
[2018-08-20] MEDS ORDERED: PT OWN MED DRAWER 7, Y5N ONE (06:58)
[2018-08-20 08:22] LABS: HEMATOCRIT 28.8 % (32.4-45.2); HEMOGLOBIN 8.9 GM/dL (10.7-15.3); MCH 26.1 pg (25.7-33.7); MCHC 30.9 g/dl (32.0-36.0); MEAN CELL VOLUME 84.5 fl (80-96); MEAN PLT VOLUME 8.1 fl (7.5-11.1); RBC 3.41 M/mm3 (3.60-5.2); RDW 15.7 % (11.6-15.6); WHITE BLOOD COUNT 14.9 K/mm3 (4.0-10.0)
[2018-08-20] MEDS: LOSARTAN POTASSIUM 50 MG TABLET (FP) PO SCH (10:31)
[2018-08-20] MEDS: SENNOSIDES 8.6MG TABLET (FP) PO SCH ×2 (10:31→22:08)
[2018-08-20] MEDS: DOCUSATE SODIUM 100 MG CAPSULE (FP) PO SCH ×2 (10:31→22:08)
[2018-08-20] MEDS: amLODIPine BESYLATE 10 MG TABLET (FP) PO SCH (10:32)
[2018-08-20] MEDS: POLYETHYLENE GLYCOL 3350 119 GM BTL PO SCH ×2 (10:32→22:09)
[2018-08-20] MEDS: HYDROCHLOROTHIAZIDE 25 MG TABLET (FP) PO SCH (10:32)
[2018-08-20] MEDS: CLOPIDOGREL BISULFATE 75 MG TABLET (FP) PO SCH ×2 (10:33→15:46)
[2018-08-20] MEDS: HEPARIN NA (PORCINE) 5,000 UNITS/ML 1ML VIAL IVPUSH PRN (12:07)
--- NOTE | 2018-08-20 13:05 | PN ---
Progress Note (short form) - Note Progress Note: continues with RUQ pain and foot pain Vital Signs Period Temp Pulse Resp BP Sys/Reyes Pulse Ox Last 24 Hr 98.6 F-99.4 F 82-86 18-20 135-150/65-76 96 cor-rrr lungs clear abd soft,+RUQ tenderness to palpation ext no edema, RLE dry gangrene, no odor, no drainage, no erythema CBC, BMP 08/20/18 05:45 08/20/18 05:45 Microbiology 08/17/18 12:10 Blood - Peripheral Venous Blood Culture - Preliminary NO GROWTH OBTAINED AFTER 72 HOURS, INCUBATION TO CONTINUE FOR 2 DAYS. 08/17/18 11:50 Blood - Peripheral Venous Blood Culture - Preliminary NO GROWTH OBTAINED AFTER 72 HOURS, INCUBATION TO CONTINUE FOR 2 DAYS. 08/07/18 14:55 Blood - Peripheral Venous Blood Culture - Final NO GROWTH AFTER 5 DAYS INCUBATION 08/07/18 13:15 Blood - Peripheral Venous Blood Culture - Final NO GROWTH AFTER 5 DAYS INCUBATION 08/07/18 14:06 Urine - Urine Clean Catch Urine Culture - Final Lactobacillus Species sono acute cholycystitis a/p cholycystitis continue levaquin and flagyl surgery consult pending leukocytosis improving gangrene RLE unchanged pen allergy Problem List - Problems (1) Leukocytosis Code(s): D72.829 - ELEVATED WHITE BLOOD CELL COUNT, UNSPECIFIED (2) Lower limb ischemia Code(s): I99.8 - OTHER DISORDER OF CIRCULATORY SYSTEM
--- NOTE | 2018-08-20 15:24 | PN ---
Progress Note (short form) - Note Progress Note: surgery pt seen and examined. full consult dictated. 83f with multiple medical problems, admitted for gangrene and refusing ampution. Pt developed one low grade fever and leukocytosis that has been dropping with levaquin and flagyls. u/s done showing gallstones and possible acute cholecystitis and pt now with ruq pain. on exam abd is soft with mild ruq tenderness and possible fullness Plan- clinically acute cholecystitis. would not offer cholecystectomy in setting of prolonged admission for gangrene. Recommend medical management and perc drainage by IR after positive hida only if fails medical management. Can consider elective cholecystectomy once acute vascular issues resolved. Pt is not toxic.
--- NOTE | 2018-08-20 16:17 | CONS ---
DATE OF CONSULTATION: 08/20/2018 REASON FOR CONSULTATION: Acute cholecystitis. This is an inpatient consultation at the request of the hospitalist service. BRIEF HISTORY: This is an 83-year-old female who was admitted to [facility] on August 07, 2018 for gangrene of her foot. She was recommended amputation and has been refusing. While in the hospital she developed a leukocytosis which was as high as 22,000 on August 17. She had 1 low grade fever. She was evaluated by the ID Service who noted that she had abdominal pain in the right upper quadrant. She went from an ultrasound of her gallbladder which showed a stone in the neck of her gallbladder with some thickening and some pericholecystic fluid. The radiologist opined that this was likely acute cholecystitis. The patient was on Levaquin and Flagyl and her white blood cell count had steadily been improving since August 17 and today it is down to 14.9. The patient still complains of some right upper quadrant pain but she states that it has improved. She is currently NPO. She denies nausea and denies vomiting. PAST MEDICAL HISTORY: Significant for diabetes and hypertension. PAST SURGICAL HISTORY: Includes multiple stents in her lower extremities as well as a section. SOCIAL HISTORY: Negative for alcohol and negative for tobacco. HOME MEDICATIONS: Have been reviewed and they include losartan, Prilosec, oxycodone, Januvia, Neurontin, insulin, and Repaglinide. FAMILY HISTORY: Noncontributory. REVIEW OF SYSTEMS: General: Admits to fatigue. Cardiac: Denies chest pain. Respiratory: Denies shortness of breath or wheeze. Gastrointestinal: As seen in HPI. Denies diarrhea and denies blood in her stool. Genitourinary: Denies dysuria. Musculoskeletal: Admits to a black foot and she is numb and cannot walk on it. PHYSICAL EXAMINATION: General: This is an elderly 83-year-old female in no distress. Vital Signs: She is afebrile. Her vital signs are stable. HEENT: Head is normocephalic. Sclerae anicteric. Neck: Supple. Chest: Clear. Abdomen: Soft. She has fullness and perhaps a distended gallbladder that can be appreciated in the right upper quadrant with mild tenderness. She has a midline scar below her umbilicus. She has no obvious hernias. She has edema of her extremities and a black demarcation on her right foot. LABORATORIES: On review of her laboratories her white blood cell count is 14.9, which is down from 22.7. Her chemistries show a glucose of 241. Phosphorus is low at 2.0. Her PTT was elevated at 56.4 perhaps from medication. ASSESSMENT: This is an 83-year-old female with multiple medical problems admitted for gangrene of her foot and refusing surgical intervention. She likely did develop acute cholecystitis while in the hospital, which is currently being treated medically. At this point I would not recommend a surgical cholecystectomy in the setting of a prolonged admission for a gangrenous foot. The patient will be unable to ambulate postoperatively and more likely will have postoperative complications such as ileus. Furthermore, if there are any complications from the gallbladder surgery, she could develop hypotension and lose more of her foot. At this point, would continue medical management of cholecystitis with IV antibiotics. May want to consider changing antibiotic to Zosyn or perhaps Rocephin and Flagyl as this would give better coverage of Escherichia coli but I will leave that to the Infectious Disease Service. If the patient continues to improve, we will start her on a low fat diet. If she fails medical management, would consider a HIDA scan at that point and if positive would recommend interventional radiology drainage of her gallbladder. The patient should be evaluated for an interval cholecystectomy as an outpatient once her acute vascular issues have been addressed. DO LEOBARDO ADAMS/[id number]
--- NOTE | 2018-08-20 17:55 | PN ---
Teaching Attending Note Name of Resident: London Pope ATTENDING PHYSICIAN STATEMENT I saw and evaluated the patient. I reviewed the resident's note and discussed the case with the resident. I agree with the resident's findings and plan as documented. SUBJECTIVE:has pain in the abdomen but improved since yesterday. states there is no pain in the foot as long as she is not putting weight on the foot. denies CP, SOB, fever, chills, N/V/C/D OBJECTIVE: Last Vital Signs Temp Pulse Resp BP Pulse Ox 98.9 F 83 20 133/62 96 08/20/18 14:12 08/20/18 14:12 08/20/18 14:12 08/20/18 14:12 08/19/18 21:00 General NAD Abdomen soft +RUQ/RLQ tenderness Extremities dry gangrene of the 1st and 3rd-5th digits. tender to palpation. no drainage noted. no warmth ASSESSMENT AND PLAN: 83 year old woman with a history of type 2 DM, HTN admitted for Right foot ischemia and found to have HTN urgency on presentation 1. R Foot ischemia- s/p angio with Popliteal artery and SFA sent placement 08/08. poor circulation to foot with single vessel run off, podiatry recommended TMA or BKA which patient is refusing both. on hep ggt, plavix, statin. pain controlled 2. Acute cholecystisis- leukocytosis improved. evaluated by surgery who does not elect for surgery at this time. will do HIDA if + will place cholecystectomy tube. NPO, IVF, Flagyl and levaquin day 3. ID and surgery on board. 3. Pseudothrombocytopenia-stable. cont hep ggt. hematology on board 4. HTN urgency-controlled. will hold diuretic while hydrating patient. cont current management. 5. constipation-likely opiate induced. +BM yesterday. cont stool softeners 6. Normocytic anemia- iron def anemia. s/p venofer. would hold oral supplementation in setting of constipation. no signs of bleeding. Hgb improved. monitor closely while on anticoagulation 7. DM- A1c 9.4. improved. cont levemir and iss. titrate as needed. hold oral agents. 8. +UCx- not symptomatic. will not treat 9. DVT ppx- hep ggt, will convert to NOAC once no more procedures are planned 10. spoke with daughters present at bedside. all questions answered. still interested in patient going to [facility] when medically optimized for discharge.
--- NOTE | 2018-08-20 18:18 | PN ---
Physical Exam: SUBJECTIVE: Patient seen and examined at bedside. C/o foot pain. No acute events overnight. OBJECTIVE: Vital Signs Period Temp Pulse Resp BP Sys/Reyes Pulse Ox Last 24 Hr 98.6 F-99.4 F 77-86 18-20 133-153/62-76 96 GENERAL: Awake Alert HEAD: NC/AT EYES: PERRLA EOMI. LUNGS: CTA B/L HEART: RRR No MRG S1S2 ABDOMEN: RUQ tenderness EXTREMITIES: R large toe 3rd,4th,5th toes dry gangrene appreciated. Laboratory Results - last 24 hr 08/16/18 08/19/18 08/20/18 11:50 22:10 05:43 WBC RBC Hgb Hct MCV MCH MCHC RDW Plt Count MPV Platelet Comment PTT (Actin FS) Sodium Potassium Chloride Carbon Dioxide Anion Gap BUN Creatinine Creat Clearance w eGFR POC Glucometer 213 247 Random Glucose Calcium Phosphorus Magnesium Crossmatch See Detail 08/20/18 08/20/18 08/20/18 05:45 05:45 09:20 WBC 14.9 H RBC 3.41 L Hgb 8.9 L Hct 28.8 L MCV 84.5 MCH 26.1 MCHC 30.9 L RDW 15.7 H Plt Count MPV 8.1 Platelet Comment Mod plt clumping PTT (Actin FS) 35.6 Sodium 132 L Potassium 4.1 Chloride 94 L Carbon Dioxide 30 Anion Gap 8 BUN 17 Creatinine 0.7 Creat Clearance w eGFR > 60 POC Glucometer Random Glucose 241 H Calcium 7.9 L Phosphorus 2.0 L Magnesium 2.2 Crossmatch 08/20/18 08/20/18 08/20/18 12:06 16:55 17:22 WBC RBC Hgb Hct MCV MCH MCHC RDW Plt Count MPV Platelet Comment PTT (Actin FS) Sodium Potassium Chloride Carbon Dioxide Anion Gap BUN Creatinine Creat Clearance w eGFR POC Glucometer 248 179 196 Random Glucose Calcium Phosphorus Magnesium Crossmatch Active Medications Generic Name Dose Route Start Last Admin Trade Name Freq PRN Reason Stop Dose Admin Acetaminophen 325 mg 08/20/18 17:24 Tylenol - PO 08/23/18 17:23 Q4H PRN PAIN LEVEL 7 - 10 Amlodipine Besylate 10 mg 08/10/18 10:00 08/20/18 10:32 Norvasc - PO 10 mg DAILY FLYNN Administration Atorvastatin Calcium 40 mg 08/13/18 22:00 08/19/18 22:31 Lipitor - PO 40 mg HS FLYNN Administration Clopidogrel Bisulfate 75 mg 08/18/18 15:00 08/20/18 15:46 Plavix - PO 75 mg DAILY FLYNN Administration Docusate Sodium 100 mg 08/09/18 22:00 08/20/18 10:31 Colace - PO 100 mg BID FLYNN Administration Heparin Sodium (Porcine) 1,000 unit 08/18/18 22:50 Heparin - IVPUSH PRN PRN Heparin Heparin Sodium (Porcine) 5,000 unit 08/18/18 22:50 08/20/18 12:07 Heparin - IVPUSH 5,000 unit PRN PRN Administration Heparin Hydrochlorothiazide 50 mg 08/17/18 10:00 08/20/18 10:32 Hctz - PO 50 mg DAILY FLYNN Administration Levofloxacin 500 mg in 100 mls @ 100 mls/hr 08/18/18 16:00 08/20/18 10:31 Levaquin 500 Mg Premixed Ivpb - IVPB 100 mls/hr DAILY FLYNN Administration Protocol Metronidazole 500 mg in 100 mls @ 100 mls/hr 08/18/18 16:20 08/20/18 17:18 Flagyl 500mg Premixed Ivpb - IVPB 100 mls/hr Q8H-IV FLYNN Administration Heparin Sodium (Porcine) 25, 500 mls @ 16 mls/hr 08/19/18 02:00 08/20/18 12: 08 000 unit/ Sodium Chloride IV 1,100 unit/hr TITR FLYNN 22 mls/hr Administration Protocol 800 UNIT/HR Dextrose/Sodium Chloride 1,000 mls @ 75 mls/hr 08/19/18 13:30 08/20/18 16:05 D5-1/2ns - IV 75 mls/hr ASDIR FLYNN Administration Insulin Aspart 1 vial 08/19/18 18:00 08/20/18 17:22 Novolog Vial Sliding Scale - SQ Not Given Q6H [facility] Protocol Insulin Detemir 5 units 08/17/18 22:00 08/19/18 22:30 Levemir Vial SQ 5 units HS FLYNN Administration Losartan Potassium 100 mg 08/17/18 10:00 08/20/18 10:31 Cozaar - PO 100 mg DAILY FLYNN Administration Oxycodone HCl 5 mg 08/20/18 17:24 Roxicodone - PO Q4H PRN PAIN LEVEL 7 - 10 Polyethylene Glycol 17 gm 08/14/18 10:00 08/20/18 10:32 Miralax (For Daily Use) - PO Not Given BID FLYNN Senna 1 tab 08/09/18 22:00 08/20/18 10:31 Senna - PO 1 tab BID FLYNN Administration ASSESSMENT/PLAN: This is an 83 year old woman with a history of type 2 DM, HTN who presented to the ED with right foot pain. 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 Pt. Platelets dropped to 45k however when retested in citrate, count was 297K. Hematology on board. --Per vascular surgery--> TMA, podiatry consult for necrosis of R big toe, 4th and 5th toes r foot. -Dr Daugherty on board, TMA was planned however pt declined and opted for a BKA. Pt and family ultimately refused BKA and desired no surgical intervention in hopes of autoamputation. # Cholecystitis -Cholelithiasis with pericholecystic fluid with mild thickening of the gallbladder alas compatible with acute cholecystitis. -Evaluated by Dr Andrade this afternoon. Recommends HIDA scan and if + recommends Cholecystostomy tube. -Levaquin/Flagyl day 3. # HTN - Norvasc 10 mg -Losartan to 100 w/ HCTZ 12.5 combo #. Type 2 DM - Metformin, Januvia held - Continue Novolog sliding scale Ucx- + for lactobacilus -Asymptomatic will not treat #FEN D5 1/2NS@75cc/hr Monitor electrolytes NPO, will start clear liquids of HIDA negative DVT ppx: Heparin gtt, Switch to NOAC tomorrow? Dispo: Med-surg Visit type - Emergency Visit Emergency Visit: Yes ED Registration Date: 08/07/18 Care time: The patient presented to the Emergency Department on the above date and was hospitalized for further evaluation of their emergent condition. - New Patient This patient is new to me today: No - Critical Care Critical Care patient: No - Discharge Referral Referred to [facility] Med P.C.: No
[2018-08-20] MEDS: oxyCODONE HCL 5 MG TABLET PO PRN (22:07)
[2018-08-20] MEDS: ATORVASTATIN CA 40 MG TABLET (FP) PO SCH (22:07)
[2018-08-20] MEDS: ACETAMINOPHEN 325 MG TABLET (FP) PO PRN (22:08)
[2018-08-20] MEDS: INSULIN (LEVEMIR) 100 UNITS/ML UNITS SQ SCH (23:12)
[2018-08-21] MEDS: HEPARIN - 25,000 UNIT in SODIUM CHLORIDE 495 ML IV SCH (04:55)
[2018-08-21] MEDS: DEXTROSE 5%-0.45% SALINE 1,000 ML IV SCH (06:26)
[2018-08-21 06:27] LABS: HEMATOCRIT 30.3 % (32.4-45.2); HEMOGLOBIN 9.4 GM/dL (10.7-15.3); MCHC 31.1 g/dl (32.0-36.0); MEAN CELL VOLUME 83.6 fl (80-96); RBC 3.63 M/mm3 (3.60-5.2); RDW 15.4 % (11.6-15.6); WHITE BLOOD COUNT 15.5 K/mm3 (4.0-10.0)
[2018-08-21] MEDS: INSULIN SLIDING SCALE (NOVOLOG) 1 VIAL SQ SCH ×4 (06:51→23:35)
[2018-08-21 07:09] LABS: ANION GAP 10 MMOL/L (8-16); BLOOD UREA NITROGEN 11 mg/dL (7-18); CALCIUM 7.6 mg/dL (8.5-10.1); CHLORIDE 93 mmol/L (98-107); CO2 27 mmol/L (21-32); CREATININE 0.7 mg/dL (0.55-1.3); GLUCOSE,RANDOM 243 mg/dL (74-106); MAGNESIUM 2.1 mg/dL (1.8-2.4); POTASSIUM 3.5 mmol/L (3.5-5.1); SODIUM 130 mmol/L (136-145)
[2018-08-21] MEDS: HEPARIN NA (PORCINE) 5,000 UNITS/ML 1ML VIAL IVPUSH PRN (08:55)
[2018-08-21 10:04] LABS: ALK PHOS 77 U/L (45-117); BILIRUBIN,DIRECT 0.2 mg/dL (0.0-0.2); BILIRUBIN,TOTAL 0.5 mg/dL (0.2-1); SGOT/AST 26 U/L (15-37); SGPT/ALT 21 U/L (13-61); TOT PROT 6.5 g/dl (6.4-8.2)
[2018-08-21] MEDS: LOSARTAN POTASSIUM 50 MG TABLET (FP) PO SCH (11:41)
[2018-08-21] MEDS: DOCUSATE SODIUM 100 MG CAPSULE (FP) PO SCH ×2 (11:41→22:14)
[2018-08-21] MEDS: SENNOSIDES 8.6MG TABLET (FP) PO SCH ×2 (11:41→22:14)
[2018-08-21] MEDS: HYDROCHLOROTHIAZIDE 25 MG TABLET (FP) PO SCH (11:41)
[2018-08-21] MEDS: CLOPIDOGREL BISULFATE 75 MG TABLET (FP) PO SCH (11:41)
[2018-08-21] MEDS: amLODIPine BESYLATE 10 MG TABLET (FP) PO SCH (11:41)
[2018-08-21] MEDS: POLYETHYLENE GLYCOL 3350 119 GM BTL PO SCH ×2 (11:49→22:14)
--- NOTE | 2018-08-21 12:10 | PN ---
Physical Exam: SUBJECTIVE: Patient seen and examined at bedside. No acute events overnight. Endorses R foot pain. Underwent Hida scan this AM. OBJECTIVE: Vital Signs Period Temp Pulse Resp BP Sys/Reyes Pulse Ox Last 24 Hr 98.9 F-99.5 F 82-91 18-20 133-158/62-83 97 GENERAL: Awake Alert NAD HEAD: NC/AT EYES: PERRLA EOMI. LUNGS: Decreased Breath sounds at bases HEART: RRR No MRG S1S2 ABDOMEN: RUQ tenderness to palpation EXTREMITIES: R large toe 3rd,4th,5th toes dry gangrene appreciated. Laboratory Results - last 24 hr 08/20/18 08/20/18 08/20/18 12:06 16:55 17:22 WBC RBC Hgb Hct MCV MCH MCHC RDW Plt Count Plt Clumps, Citrate PTT (Actin FS) Sodium Potassium Chloride Carbon Dioxide Anion Gap BUN Creatinine Creat Clearance w eGFR POC Glucometer 248 179 196 Random Glucose Calcium Phosphorus Magnesium Total Bilirubin Direct Bilirubin AST ALT Alkaline Phosphatase Total Protein Albumin 08/20/18 08/20/18 08/21/18 19:00 22:12 06:05 WBC 15.5 H RBC 3.63 Hgb 9.4 L Hct 30.3 L MCV 83.6 MCH 26.0 MCHC 31.1 L RDW 15.4 Plt Count Plt Clumps, Citrate PTT (Actin FS) 64.4 H Sodium Potassium Chloride Carbon Dioxide Anion Gap BUN Creatinine Creat Clearance w eGFR POC Glucometer 219 Random Glucose Calcium Phosphorus Magnesium Total Bilirubin Direct Bilirubin AST ALT Alkaline Phosphatase Total Protein Albumin 08/21/18 08/21/18 08/21/18 06:05 06:05 06:05 WBC RBC Hgb Hct MCV MCH MCHC RDW Plt Count Plt Clumps, Citrate PTT (Actin FS) 38.0 H Sodium 130 L Potassium 3.5 Chloride 93 L Carbon Dioxide 27 Anion Gap 10 BUN 11 Creatinine 0.7 Creat Clearance w eGFR > 60 POC Glucometer Random Glucose 243 H Calcium 7.6 L Phosphorus 2.0 L Magnesium 2.1 Total Bilirubin 0.5 Direct Bilirubin 0.2 AST 26 ALT 21 Alkaline Phosphatase 77 Total Protein 6.5 Albumin 2.0 L 08/21/18 06:34 WBC RBC Hgb Hct MCV MCH MCHC RDW Plt Count Plt Clumps, Citrate PTT (Actin FS) Sodium Potassium Chloride Carbon Dioxide Anion Gap BUN Creatinine Creat Clearance w eGFR POC Glucometer 237 Random Glucose Calcium Phosphorus Magnesium Total Bilirubin Direct Bilirubin AST ALT Alkaline Phosphatase Total Protein Albumin Active Medications Generic Name Dose Route Start Last Admin Trade Name Freq PRN Reason Stop Dose Admin Acetaminophen 325 mg 08/20/18 17:24 08/20/18 22:08 Tylenol - PO 08/23/18 17:23 325 mg Q4H PRN Administration PAIN LEVEL 7 - 10 Amlodipine Besylate 10 mg 08/10/18 10:00 08/21/18 11:41 Norvasc - PO 10 mg DAILY FLYNN Administration Atorvastatin Calcium 40 mg 08/13/18 22:00 08/20/18 22:07 Lipitor - PO 40 mg HS FLYNN Administration Clopidogrel Bisulfate 75 mg 08/18/18 15:00 08/21/18 11:41 Plavix - PO 75 mg DAILY FLYNN Administration Docusate Sodium 100 mg 08/09/18 22:00 08/21/18 11:41 Colace - PO 100 mg BID FLYNN Administration Heparin Sodium (Porcine) 1,000 unit 08/18/18 22:50 Heparin - IVPUSH PRN PRN Heparin Heparin Sodium (Porcine) 5,000 unit 08/18/18 22:50 08/21/18 08:55 Heparin - IVPUSH 5,000 unit PRN PRN Administration Heparin Hydrochlorothiazide 50 mg 08/17/18 10:00 08/21/18 11:41 Hctz - PO 50 mg DAILY FLYNN Administration Levofloxacin 500 mg in 100 mls @ 100 mls/hr 08/18/18 16:00 08/21/18 11:44 Levaquin 500 Mg Premixed Ivpb - IVPB 100 mls/hr DAILY FLYNN Administration Protocol Metronidazole 500 mg in 100 mls @ 100 mls/hr 08/18/18 16:20 08/21/18 11:42 Flagyl 500mg Premixed Ivpb - IVPB 100 mls/hr Q8H-IV FLYNN Administration Heparin Sodium (Porcine) 25, 500 mls @ 16 mls/hr 08/19/18 02:00 08/21/18 08: 55 000 unit/ Sodium Chloride IV 1,250 unit/hr TITR FLYNN 25 mls/hr Titration Protocol 800 UNIT/HR Insulin Aspart 1 vial 08/19/18 18:00 08/21/18 11:56 Novolog Vial Sliding Scale - SQ 4 units Q6H FLYNN Administration Protocol Insulin Detemir 5 units 08/17/18 22:00 08/20/18 23:12 Levemir Vial SQ 5 units HS FLYNN Administration Losartan Potassium 100 mg 08/17/18 10:00 08/21/18 11:41 Cozaar - PO 100 mg DAILY FLYNN Administration Oxycodone HCl 5 mg 08/20/18 17:24 08/20/18 22:07 Roxicodone - PO 5 mg Q4H PRN Administration PAIN LEVEL 7 - 10 Polyethylene Glycol 17 gm 08/14/18 10:00 08/21/18 11:49 Miralax (For Daily Use) - PO Not Given BID FLYNN Senna 1 tab 08/09/18 22:00 08/21/18 11:41 Senna - PO 1 tab BID FLYNN Administration FINDINGS: There is normal homogeneous perfusion of the liver with no evidence of focal lesion. Extraction of tracer from the blood pool by the liver parenchyma is normal. Tracer appears promptly and within the biliary tree. The gallbladder does not fill with tracer after 90 minutes of imaging. Tracer in the small bowel is first seen at 10-15 minutes. IMPRESSION: No filling of the gallbladder after 90 minutes of imaging. No residual tracer seen in the liver or biliary tree to conduct further imaging. In view of the findings of the ultrasound, findings are suggestive of cystic duct obstruction and acute cholecystitis in the right clinical setting. Reported By: Anthony Grey MD 08/21 0047 ASSESSMENT/PLAN: This is an 83 year old woman with a history of type 2 DM, HTN who presented to the ED with right foot pain. 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 Pt. Platelets dropped to 45k however when retested in citrate, count was 297K. Hematology on board. --Per vascular surgery--> TMA, podiatry consult for necrosis of R big toe, 4th and 5th toes r foot. -Dr Daugherty on board, TMA was planned however pt declined and opted for a BKA. Pt and family ultimately refused BKA and desired no surgical intervention in hopes of autoamputation. # Cholecystitis -Cholelithiasis with pericholecystic fluid with mild thickening of the gallbladder alas compatible with acute cholecystitis. -Evaluated by Dr Andrade 08/20/18. Recommended HIDA scan and if + recommends Cholecystostomy tube. -Levaquin/Flagyl day 4. -HIDA SCAN--> No filling of the gallbladder after 90 minutes of imaging. No residual tracer seen in the liver or biliary tree to conduct further imaging. In view of the findings of the ultrasound, findings are suggestive of cystic duct obstruction and acute cholecystitis in the right clinical setting -plan for possible Cholecystostomy tube in light of HIDA findings. # HTN - Norvasc 10 mg -Losartan to 100 w/ HCTZ 12.5 combo #. Type 2 DM - Metformin, Januvia held - Continue Novolog sliding scale Ucx- + for lactobacilus -Asymptomatic will not treat #FEN No Fluids Monitor electrolytes Clear liquids DVT ppx: Heparin gtt Dispo: Med-surg Visit type - Emergency Visit Emergency Visit: Yes ED Registration Date: 08/07/18 Care time: The patient presented to the Emergency Department on the above date and was hospitalized for further evaluation of their emergent condition. - New Patient This patient is new to me today: No - Critical Care Critical Care patient: No - Discharge Referral Referred to [facility] Med P.C.: No
[2018-08-21] MEDS: oxyCODONE HCL 5 MG TABLET PO PRN ×2 (14:51→22:14)
[2018-08-21] MEDS: ACETAMINOPHEN 325 MG TABLET (FP) PO PRN ×2 (14:53→22:14)
--- NOTE | 2018-08-21 15:51 | PN ---
Teaching Attending Note Name of Resident: London Pope ATTENDING PHYSICIAN STATEMENT I saw and evaluated the patient. I reviewed the resident's note and discussed the case with the resident. I agree with the resident's findings and plan as documented with exceptions below. SUBJECTIVE: Patient seen and examined. Reports some abdominal pain. No leg pain/fevers or chills noted. OBJECTIVE: Vital Signs Period Temp Pulse Resp BP Sys/Reyes Pulse Ox Last 24 Hr 99.0 F-100.5 F 82-92 18-22 129-158/67-83 97 Intake & Output 08/18/18 08/19/18 08/20/18 08/21/18 23:59 23:59 23:59 23:59 Intake Total 3578 530 8524 100 Balance 4150 008 1387 100 Weight 145 lb 7 oz General: sitting in bed in no acute distress Chest: poor effort, no rales or wheezing Abdomen: soft, RUQ/right epigastric tenderness noted, vague generalized RUQ tenderness on minimal palpation limiting Toure's sign examination, no voluntary or involuntary guarding or rigidity, positive bowel sounds Extremities: dry gangrene right 1st and 3rd-5th digits, tender to palpation, unable to palpate DP pulse Home Medications Medication Instructions Recorded Losartan Potassium [Cozaar -] 50 mg PO BID 08/07/18 Omeprazole Magnesium [Prilosec Otc] 20 mg PO DAILY 08/07/18 Oxybutynin Chloride [Oxybutynin 5 mg PO DAILY 08/07/18 Chloride ER] Sitagliptin Phos/Metformin HCl 1 each PO BID 08/07/18 [Janumet 50-1,000 mg Tablet] Gabapentin [Neurontin] 1 cap PO BID 08/14/18 Ibuprofen 600 mg PO Q6H PRN 08/14/18 Insulin Glargine,Hum.rec.anlog 10 units SQ HS 08/14/18 [Lantus Solostar PEN (NF)] Oxycodone HCl/Acetaminophen 1 tab PO Q6H PRN 08/14/18 [Percocet 5-325 mg Tablet] Repaglinide 1 tab PO TID 08/14/18 Active Medications Acetaminophen (Tylenol -) 325 mg PO Q4H PRN PRN Reason: PAIN LEVEL 7 - 10 Stop: 08/23/18 17:23 Last Admin: 08/21/18 14:53 Dose: 325 mg Amlodipine Besylate (Norvasc -) 10 mg PO DAILY [facility] Last Admin: 08/21/18 11:41 Dose: 10 mg Atorvastatin Calcium (Lipitor -) 40 mg PO HS [facility] Last Admin: 08/20/18 22:07 Dose: 40 mg Clopidogrel Bisulfate (Plavix -) 75 mg PO DAILY [facility] Last Admin: 08/21/18 11:41 Dose: 75 mg Docusate Sodium (Colace -) 100 mg PO BID [facility] Last Admin: 08/21/18 11:41 Dose: 100 mg Heparin Sodium (Porcine) (Heparin -) 1,000 unit IVPUSH PRN PRN PRN Reason: Heparin Heparin Sodium (Porcine) (Heparin -) 5,000 unit IVPUSH PRN PRN PRN Reason: Heparin Last Admin: 08/21/18 08:55 Dose: 5,000 unit Hydrochlorothiazide (Hctz -) 50 mg PO DAILY [facility] Last Admin: 08/21/18 11:41 Dose: 50 mg Levofloxacin (Levaquin 500 Mg Premixed Ivpb -) 500 mg in 100 mls @ 100 mls/hr IVPB DAILY [facility]; Protocol Last Admin: 08/21/18 11:44 Dose: 100 mls/hr Metronidazole (Flagyl 500mg Premixed Ivpb -) 500 mg in 100 mls @ 100 mls/hr IVPB Q8H-IV FLYNN Last Admin: 08/21/18 11:42 Dose: 100 mls/hr Heparin Sodium (Porcine) 25, (000 unit/ Sodium Chloride) 500 mls @ 16 mls/hr IV TITR [facility]; Protocol Last Titration: 08/21/18 08:55 Dose: 1,250 unit/hr, 25 mls/hr Insulin Aspart (Novolog Vial Sliding Scale -) 1 vial SQ Q6H [facility]; Protocol Last Admin: 08/21/18 11:56 Dose: 4 units Insulin Detemir (Levemir Vial) 5 units SQ HS [facility] Last Admin: 08/20/18 23:12 Dose: 5 units Losartan Potassium (Cozaar -) 100 mg PO DAILY [facility] Last Admin: 08/21/18 11:41 Dose: 100 mg Oxycodone HCl (Roxicodone -) 5 mg PO Q4H PRN PRN Reason: PAIN LEVEL 7 - 10 Last Admin: 08/21/18 14:51 Dose: 5 mg Polyethylene Glycol (Miralax (For Daily Use) -) 17 gm PO BID [facility] Last Admin: 08/21/18 11:49 Dose: Not Given Senna (Senna -) 1 tab PO BID [facility] Last Admin: 08/21/18 11:41 Dose: 1 tab Laboratory Results - last 24 hr 08/20/18 08/20/18 08/20/18 16:55 17:22 19:00 WBC RBC Hgb Hct MCV MCH MCHC RDW Plt Count Plt Clumps, Citrate PTT (Actin FS) 64.4 H Sodium Potassium Chloride Carbon Dioxide Anion Gap BUN Creatinine Creat Clearance w eGFR POC Glucometer 179 196 Random Glucose Calcium Phosphorus Magnesium Total Bilirubin Direct Bilirubin AST ALT Alkaline Phosphatase Total Protein Albumin 08/20/18 08/21/18 08/21/18 22:12 06:05 06:05 WBC 15.5 H RBC 3.63 Hgb 9.4 L Hct 30.3 L MCV 83.6 MCH 26.0 MCHC 31.1 L RDW 15.4 Plt Count Plt Clumps, Citrate PTT (Actin FS) 38.0 H Sodium Potassium Chloride Carbon Dioxide Anion Gap BUN Creatinine Creat Clearance w eGFR POC Glucometer 219 Random Glucose Calcium Phosphorus Magnesium Total Bilirubin Direct Bilirubin AST ALT Alkaline Phosphatase Total Protein Albumin 08/21/18 08/21/18 08/21/18 06:05 06:05 06:34 WBC RBC Hgb Hct MCV MCH MCHC RDW Plt Count Plt Clumps, Citrate PTT (Actin FS) Sodium 130 L Potassium 3.5 Chloride 93 L Carbon Dioxide 27 Anion Gap 10 BUN 11 Creatinine 0.7 Creat Clearance w eGFR > 60 POC Glucometer 237 Random Glucose 243 H Calcium 7.6 L Phosphorus 2.0 L Magnesium 2.1 Total Bilirubin 0.5 Direct Bilirubin 0.2 AST 26 ALT 21 Alkaline Phosphatase 77 Total Protein 6.5 Albumin 2.0 L 08/21/18 11:54 WBC RBC Hgb Hct MCV MCH MCHC RDW Plt Count Plt Clumps, Citrate PTT (Actin FS) Sodium Potassium Chloride Carbon Dioxide Anion Gap BUN Creatinine Creat Clearance w eGFR POC Glucometer 244 Random Glucose Calcium Phosphorus Magnesium Total Bilirubin Direct Bilirubin AST ALT Alkaline Phosphatase Total Protein Albumin Microbiology 08/17/18 12:10 Blood - Peripheral Venous Blood Culture - Preliminary NO GROWTH OBTAINED AFTER 96 HOURS, INCUBATION TO CONTINUE FOR 1 DAYS. 08/17/18 11:50 Blood - Peripheral Venous Blood Culture - Preliminary NO GROWTH OBTAINED AFTER 96 HOURS, INCUBATION TO CONTINUE FOR 1 DAYS. 08/07/18 14:55 Blood - Peripheral Venous Blood Culture - Final NO GROWTH AFTER 5 DAYS INCUBATION 08/07/18 13:15 Blood - Peripheral Venous Blood Culture - Final NO GROWTH AFTER 5 DAYS INCUBATION 08/07/18 14:06 Urine - Urine Clean Catch Urine Culture - Final Lactobacillus Species ASSESSMENT AND PLAN: 83 year old woman with a history of type 2 DM, HTN admitted for Right foot ischemia and found to have HTN urgency on presentation -Right foot dry gangrene/PVD s/p angio/popliteal artery/SFA stent placement 08/08 , poor circulation to foot with single vessel run off -Acute cholecystitis -Pseudothrombocytopenia -HTN urgen -Constipation, opioid inducted -Normocytic anemia -IDDM, A1c 9.4 -Asymptomatic bacteruria Plan: Podiatry/vascular input noted. Patient recommended TMA or BKA. Discussed with patient, 'does not want to talk about it'. Plavix/statin/heparin drip/pain control. Surgery/ID input noted. Levaquin/flagyl. Clears as tolerated, IVF. HIDA scan positive. IR guided cholecystostomy tube placement. Discussed with patient, agreable to tube placement. Family agreable. Hematology input noted. PLatelet count to be sent in blue tube. Bowel regimen. s/p venofer. Levemir, ISS, titrate as needed. Hold oral agents. Dispo pending resolution of medical concerns. Palliative care concerns to address overall goals of care. Plan discussed with patient, all questions answered.
--- NOTE | 2018-08-21 18:22 | PN ---
Progress Note (short form) - Note Progress Note: FUV right foot. . vss, Tmax 99.6 +gangarene right foot toe 1,3,4,5, +pvd, elevated wbc=15.5 gangarene right foot Still no intervention. Will follow till dc.
[2018-08-21] MEDS: ATORVASTATIN CA 40 MG TABLET (FP) PO SCH (22:13)
[2018-08-21] MEDS: INSULIN (LEVEMIR) 100 UNITS/ML UNITS SQ SCH (23:00)
[2018-08-22] MEDS: HEPARIN - 25,000 UNIT in SODIUM CHLORIDE 495 ML IV SCH (04:00)
[2018-08-22] MEDS: INSULIN SLIDING SCALE (NOVOLOG) 1 VIAL SQ SCH ×3 (06:36→18:28)
[2018-08-22 07:51] LABS: ANION GAP 10 MMOL/L (8-16); BLOOD UREA NITROGEN 11 mg/dL (7-18); CHLORIDE 94 mmol/L (98-107); CO2 28 mmol/L (21-32); CREATININE 0.7 mg/dL (0.55-1.3); GLUCOSE,RANDOM 147 mg/dL (74-106); MAGNESIUM 2.2 mg/dL (1.8-2.4); PHOSPHOROUS 2.4 mg/dL (2.5-4.9); POTASSIUM 3.3 mmol/L (3.5-5.1); SODIUM 132 mmol/L (136-145)
[2018-08-22] MEDS ORDERED: PT OWN MED DRAWER 7, Y5N ONE ×3 (08:03→23:58)
[2018-08-22 08:54] LABS: HEMATOCRIT 27.9 % (32.4-45.2); HEMOGLOBIN 8.6 GM/dL (10.7-15.3); MCH 25.7 pg (25.7-33.7); MCHC 30.7 g/dl (32.0-36.0); MEAN CELL VOLUME 83.4 fl (80-96); RBC 3.34 M/mm3 (3.60-5.2); RDW 15.4 % (11.6-15.6); WHITE BLOOD COUNT 17.1 K/mm3 (4.0-10.0)
[2018-08-22] MEDS: POLYETHYLENE GLYCOL 3350 119 GM BTL PO SCH ×2 (09:57→21:44)
[2018-08-22] MEDS: DOCUSATE SODIUM 100 MG CAPSULE (FP) PO SCH ×2 (09:57→21:44)
[2018-08-22] MEDS: SENNOSIDES 8.6MG TABLET (FP) PO SCH ×2 (09:57→21:44)
[2018-08-22 10:03] LABS: ALBUMIN 2.2 g/dl (3.4-5.0); ALK PHOS 82 U/L (45-117); BILIRUBIN,DIRECT 0.2 mg/dL (0.0-0.2); BILIRUBIN,TOTAL 0.4 mg/dL (0.2-1); SGOT/AST 23 U/L (15-37); SGPT/ALT 21 U/L (13-61); TOT PROT 6.4 g/dl (6.4-8.2)
[2018-08-22] MEDS: amLODIPine BESYLATE 10 MG TABLET (FP) PO SCH (11:26)
[2018-08-22] MEDS: HYDROCHLOROTHIAZIDE 25 MG TABLET (FP) PO SCH (11:27)
[2018-08-22] MEDS: LOSARTAN POTASSIUM 50 MG TABLET (FP) PO SCH (11:27)
--- NOTE | 2018-08-22 17:07 | PN ---
Progress Note (short form) - Note Progress Note: s/p IR drainage of gallbladder today reports less foot pain Vital Signs Period Temp Pulse Resp BP Sys/Reyes Pulse Ox Last 24 Hr 98.6 F-100.3 F 77-88 16-20 143-169/58-80 98-100 cor-rrr llungs clear abd soft, +ruq pain, greyson with cloudy purulent fluid ext dry gangrene RLE unchanged CBC, BMP 08/22/18 06:10 08/22/18 06:00 Microbiology 08/17/18 12:10 Blood - Peripheral Venous Blood Culture - Final NO GROWTH AFTER 5 DAYS INCUBATION 08/17/18 11:50 Blood - Peripheral Venous Blood Culture - Final NO GROWTH AFTER 5 DAYS INCUBATION 08/07/18 14:55 Blood - Peripheral Venous Blood Culture - Final NO GROWTH AFTER 5 DAYS INCUBATION 08/07/18 13:15 Blood - Peripheral Venous Blood Culture - Final NO GROWTH AFTER 5 DAYS INCUBATION 08/07/18 14:06 Urine - Urine Clean Catch Urine Culture - Final Lactobacillus Species sono acute cholycystitis a/p cholycystitis continue levaquin and flagyl s/p IR drainage f/u cultures in am leukocytosis gangrene RLE unchanged pen allergy Problem List - Problems (1) Leukocytosis Code(s): D72.829 - ELEVATED WHITE BLOOD CELL COUNT, UNSPECIFIED (2) Lower limb ischemia Code(s): I99.8 - OTHER DISORDER OF CIRCULATORY SYSTEM
--- NOTE | 2018-08-22 18:15 | PN ---
Physical Exam: SUBJECTIVE: Patient seen and examined this AM. No acute events overnight. C/o constipation. No acute event overnight. OBJECTIVE: Vital Signs Period Temp Pulse Resp BP Sys/Reyes Pulse Ox Last 24 Hr 98.6 F-100.3 F 77-90 16-20 143-163/58-80 98-100 GENERAL: Awake Alert NAD HEAD: NC/AT EYES: EOMI. No scleral icterus conjunctiva not injected LUNGS: CTA B/L no wheezing rhonchi or rales HEART: RRR No MRG S1S2 ABDOMEN: RUQ tenderness to palpation EXTREMITIES: R large toe black, shriveled, cool to touch, 3rd,4th,5th toes black no sensation- Consistent with dry gangrene Laboratory Results - last 24 hr 08/18/18 08/21/18 08/22/18 16:50 22:20 06:00 WBC RBC Hgb Hct MCV MCH MCHC RDW Plt Count Platelet Comment PTT (Actin FS) Sodium 132 L Potassium 3.3 L Chloride 94 L Carbon Dioxide 28 Anion Gap 10 BUN 11 Creatinine 0.7 Creat Clearance w eGFR > 60 POC Glucometer 183 Random Glucose 147 H Calcium 8.0 L Phosphorus 2.4 L Magnesium 2.2 Total Bilirubin 0.4 Direct Bilirubin 0.2 AST 23 ALT 21 Alkaline Phosphatase 82 Total Protein 6.4 Albumin 2.2 L Heparin-Ind Plt Ab Scrn 0.805 H 08/22/18 08/22/18 08/22/18 06:10 06:10 06:35 WBC 17.1 H RBC 3.34 L Hgb 8.6 L Hct 27.9 L MCV 83.4 MCH 25.7 MCHC 30.7 L RDW 15.4 Plt Count Platelet Comment Mod plt clumping PTT (Actin FS) 33.7 Sodium Potassium Chloride Carbon Dioxide Anion Gap BUN Creatinine Creat Clearance w eGFR POC Glucometer 156 Random Glucose Calcium Phosphorus Magnesium Total Bilirubin Direct Bilirubin AST ALT Alkaline Phosphatase Total Protein Albumin Heparin-Ind Plt Ab Scrn 08/22/18 11:35 WBC RBC Hgb Hct MCV MCH MCHC RDW Plt Count Platelet Comment PTT (Actin FS) Sodium Potassium Chloride Carbon Dioxide Anion Gap BUN Creatinine Creat Clearance w eGFR POC Glucometer 177 Random Glucose Calcium Phosphorus Magnesium Total Bilirubin Direct Bilirubin AST ALT Alkaline Phosphatase Total Protein Albumin Heparin-Ind Plt Ab Scrn Active Medications Generic Name Dose Route Start Last Admin Trade Name Freq PRN Reason Stop Dose Admin Acetaminophen 325 mg 08/20/18 17:24 08/21/18 22:14 Tylenol - PO 08/23/18 17:23 325 mg Q4H PRN Administration PAIN LEVEL 7 - 10 Amlodipine Besylate 10 mg 08/10/18 10:00 08/22/18 11:26 Norvasc - PO 10 mg DAILY [facility] Administration Atorvastatin Calcium 40 mg 08/13/18 22:00 08/21/18 22:13 Lipitor - PO 40 mg HS [facility] Administration Docusate Sodium 100 mg 08/09/18 22:00 08/22/18 09:57 Colace - PO Not Given BID [facility] Heparin Sodium (Porcine) 1,000 unit 08/18/18 22:50 Heparin - IVPUSH PRN PRN Heparin Heparin Sodium (Porcine) 5,000 unit 08/18/18 22:50 08/21/18 08:55 Heparin - IVPUSH 5,000 unit PRN PRN Administration Heparin Hydrochlorothiazide 50 mg 08/17/18 10:00 08/22/18 11:27 Hctz - PO Not Given DAILY [facility] Levofloxacin 500 mg in 100 mls @ 100 mls/hr 08/18/18 16:00 08/22/18 09:56 Levaquin 500 Mg Premixed Ivpb - IVPB 100 mls/hr DAILY [facility] Administration Protocol Metronidazole 500 mg in 100 mls @ 100 mls/hr 08/18/18 16:20 08/22/18 09:56 Flagyl 500mg Premixed Ivpb - IVPB 100 mls/hr Q8H-IV [facility] Administration Insulin Aspart 1 vial 08/19/18 18:00 08/22/18 11:36 Novolog Vial Sliding Scale - SQ Not Given Q6H [facility] Protocol Insulin Detemir 5 units 08/17/18 22:00 08/21/18 23:00 Levemir Vial SQ 5 units HS [facility] Administration Losartan Potassium 100 mg 08/17/18 10:00 08/22/18 11:27 Cozaar - PO Not Given DAILY [facility] Oxycodone HCl 5 mg 08/20/18 17:24 08/21/18 22:14 Roxicodone - PO 5 mg Q4H PRN Administration PAIN LEVEL 7 - 10 Polyethylene Glycol 17 gm 08/14/18 10:00 08/22/18 09:57 Miralax (For Daily Use) - PO Not Given BID [facility] Senna 1 tab 08/09/18 22:00 08/22/18 09:57 Senna - PO Not Given BID [facility] ASSESSMENT/PLAN: This is an 83 year old woman with a history of type 2 DM, HTN who presented to the ED with right foot pain. 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 Pt. Platelets dropped to 45k however when retested in citrate, count was 297K. Hematology on board. --Per vascular surgery--> TMA, podiatry consult for necrosis of R big toe, 4th and 5th toes r foot. -Dr Daugherty on board, TMA was planned however pt declined and opted for a BKA. Pt and family ultimately refused BKA and desired no surgical intervention in hopes of autoamputation. # Cholecystitis -Cholelithiasis with pericholecystic fluid with mild thickening of the gallbladder alas compatible with acute cholecystitis. -Evaluated by Dr Andrade 08/20/18. Recommended HIDA scan and if + recommends Cholecystostomy tube. -Levaquin/Flagyl day 4. -S/P Percutaneous IR Guided Cholecystostomy w/ Dr Chase earlier today. # HTN - Norvasc 10 mg -Losartan to 100 w/ HCTZ 12.5 combo #. Type 2 DM - Metformin, Januvia held - Continue Novolog sliding scale Ucx- + for lactobacilus -Asymptomatic will not treat #FEN No Fluids Monitor electrolytes Clear liquids DVT ppx: Resume Heparin Dispo: Med-surg Visit type - Emergency Visit Emergency Visit: Yes ED Registration Date: 08/07/18 Care time: The patient presented to the Emergency Department on the above date and was hospitalized for further evaluation of their emergent condition. - New Patient This patient is new to me today: No - Critical Care Critical Care patient: No - Discharge Referral Referred to [facility] Med P.C.: No
--- NOTE | 2018-08-22 18:29 | PN ---
Teaching Attending Note Name of Resident: London Pope ATTENDING PHYSICIAN STATEMENT I saw and evaluated the patient. I reviewed the resident's note and discussed the case with the resident. I agree with the resident's findings and plan as documented with exceptions below. SUBJECTIVE: Patient seen and examined. Still with abdominal pain, reports right foot burning. no fevers, chills, nausea or vomiting. OBJECTIVE: Vital Signs Period Temp Pulse Resp BP Sys/Reyes Pulse Ox Last 24 Hr 98.6 F-100.3 F 77-90 16-20 143-163/58-80 98-100 Intake & Output 08/19/18 08/20/18 08/21/18 08/22/18 23:59 23:59 23:59 23:59 Intake Total 208 1452 1092 816 Balance 208 1452 1092 816 General: sitting in bed in no acute distress Chest: CTAB, no rales or wheezing Abdomen:soft, RUQ tenderness, positive Toure's sign, no voluntary or involuntary guarding or rigidity, positive bowel sounds Extremities: Right foot gangrene unchanged Active Medications Acetaminophen (Tylenol -) 325 mg PO Q4H PRN PRN Reason: PAIN LEVEL 7 - 10 Stop: 08/23/18 17:23 Last Admin: 08/21/18 22:14 Dose: 325 mg Amlodipine Besylate (Norvasc -) 10 mg PO DAILY [facility] Last Admin: 08/22/18 11:26 Dose: 10 mg Atorvastatin Calcium (Lipitor -) 40 mg PO HS [facility] Last Admin: 08/21/18 22:13 Dose: 40 mg Docusate Sodium (Colace -) 100 mg PO BID [facility] Last Admin: 08/22/18 09:57 Dose: Not Given Heparin Sodium (Porcine) (Heparin -) 1,000 unit IVPUSH PRN PRN PRN Reason: Heparin Heparin Sodium (Porcine) (Heparin -) 5,000 unit IVPUSH PRN PRN PRN Reason: Heparin Last Admin: 08/21/18 08:55 Dose: 5,000 unit Hydrochlorothiazide (Hctz -) 50 mg PO DAILY [facility] Last Admin: 08/22/18 11:27 Dose: Not Given Levofloxacin (Levaquin 500 Mg Premixed Ivpb -) 500 mg in 100 mls @ 100 mls/hr IVPB DAILY [facility]; Protocol Last Admin: 08/22/18 09:56 Dose: 100 mls/hr Metronidazole (Flagyl 500mg Premixed Ivpb -) 500 mg in 100 mls @ 100 mls/hr IVPB Q8H-IV [facility] Last Admin: 08/22/18 09:56 Dose: 100 mls/hr Insulin Aspart (Novolog Vial Sliding Scale -) 1 vial SQ Q6H [facility]; Protocol Last Admin: 08/22/18 11:36 Dose: Not Given Insulin Detemir (Levemir Vial) 5 units SQ HS [facility] Last Admin: 08/21/18 23:00 Dose: 5 units Losartan Potassium (Cozaar -) 100 mg PO DAILY [facility] Last Admin: 08/22/18 11:27 Dose: Not Given Oxycodone HCl (Roxicodone -) 5 mg PO Q4H PRN PRN Reason: PAIN LEVEL 7 - 10 Last Admin: 08/21/18 22:14 Dose: 5 mg Polyethylene Glycol (Miralax (For Daily Use) -) 17 gm PO BID [facility] Last Admin: 08/22/18 09:57 Dose: Not Given Senna (Senna -) 1 tab PO BID [facility] Last Admin: 08/22/18 09:57 Dose: Not Given Laboratory Results - last 24 hr 08/18/18 08/21/18 08/22/18 16:50 22:20 06:00 WBC RBC Hgb Hct MCV MCH MCHC RDW Plt Count Platelet Comment PTT (Actin FS) Sodium 132 L Potassium 3.3 L Chloride 94 L Carbon Dioxide 28 Anion Gap 10 BUN 11 Creatinine 0.7 Creat Clearance w eGFR > 60 POC Glucometer 183 Random Glucose 147 H Calcium 8.0 L Phosphorus 2.4 L Magnesium 2.2 Total Bilirubin 0.4 Direct Bilirubin 0.2 AST 23 ALT 21 Alkaline Phosphatase 82 Total Protein 6.4 Albumin 2.2 L Heparin-Ind Plt Ab Scrn 0.805 H 08/22/18 08/22/18 08/22/18 06:10 06:10 06:35 WBC 17.1 H RBC 3.34 L Hgb 8.6 L Hct 27.9 L MCV 83.4 MCH 25.7 MCHC 30.7 L RDW 15.4 Plt Count Platelet Comment Mod plt clumping PTT (Actin FS) 33.7 Sodium Potassium Chloride Carbon Dioxide Anion Gap BUN Creatinine Creat Clearance w eGFR POC Glucometer 156 Random Glucose Calcium Phosphorus Magnesium Total Bilirubin Direct Bilirubin AST ALT Alkaline Phosphatase Total Protein Albumin Heparin-Ind Plt Ab Scrn 08/22/18 11:35 WBC RBC Hgb Hct MCV MCH MCHC RDW Plt Count Platelet Comment PTT (Actin FS) Sodium Potassium Chloride Carbon Dioxide Anion Gap BUN Creatinine Creat Clearance w eGFR POC Glucometer 177 Random Glucose Calcium Phosphorus Magnesium Total Bilirubin Direct Bilirubin AST ALT Alkaline Phosphatase Total Protein Albumin Heparin-Ind Plt Ab Scrn Microbiology 08/17/18 12:10 Blood - Peripheral Venous Blood Culture - Final NO GROWTH AFTER 5 DAYS INCUBATION 08/17/18 11:50 Blood - Peripheral Venous Blood Culture - Final NO GROWTH AFTER 5 DAYS INCUBATION 08/07/18 14:55 Blood - Peripheral Venous Blood Culture - Final NO GROWTH AFTER 5 DAYS INCUBATION 08/07/18 13:15 Blood - Peripheral Venous Blood Culture - Final NO GROWTH AFTER 5 DAYS INCUBATION 08/07/18 14:06 Urine - Urine Clean Catch Urine Culture - Final Lactobacillus Species ASSESSMENT AND PLAN: 83 year old woman with a history of type 2 DM, HTN admitted for Right foot ischemia and found to have HTN urgency on presentation -Right foot dry gangrene/PVD s/p angio/popliteal artery/SFA stent placement 08/08 , poor circulation to foot with single vessel run off -Acute cholecystitis -Pseudothrombocytopenia -HTN urgen -Constipation, opioid inducted -Normocytic anemia -IDDM, A1c 9.4 -Asymptomatic bacteruria Plan: S/p Right cholecystostomy tube placement today. ID/Surgery input appreciated. levaquin/flagyl. Podiatry/vascular input noted. Patient recommended TMA or BKA. Will continue to address with patient. Discussed with Dr. Grey, resume heparin/plavix tomorrow. Continue statin. Hematology input noted. PLatelet count to be sent in blue tube. Bowel regimen. s/p venofer. Levemir, ISS, titrate as needed. Hold oral agents. Dispo pending resolution of medical concerns. Palliative care to address overall goals of care. Plan discussed with patient, all questions answered.
[2018-08-22] MEDS: oxyCODONE HCL 5 MG TABLET PO PRN (21:42)
[2018-08-22] MEDS: INSULIN (LEVEMIR) 100 UNITS/ML UNITS SQ SCH (21:44)
[2018-08-22] MEDS: ATORVASTATIN CA 40 MG TABLET (FP) PO SCH (21:44)
[2018-08-23] MEDS: INSULIN SLIDING SCALE (NOVOLOG) 1 VIAL SQ SCH ×5 (01:03→23:32)
[2018-08-23] MEDS: oxyCODONE HCL 5 MG TABLET PO PRN ×2 (02:09→18:56)
[2018-08-23] MEDS: ACETAMINOPHEN 325 MG TABLET (FP) PO PRN (02:10)
[2018-08-23] MEDS ORDERED: INSULIN (NOVOLOG) ASPART 100 UNITS/ML 10ML VIAL ONE (06:39)
[2018-08-23] MEDS ORDERED: INSULIN (LEVEMIR) 100 UNITS/ML UNITS SQ ONE (06:40)
[2018-08-23 08:39] LABS: HEMATOCRIT 27.3 % (32.4-45.2); HEMOGLOBIN 8.6 GM/dL (10.7-15.3); MCH 25.9 pg (25.7-33.7); MCHC 31.3 g/dl (32.0-36.0); MEAN CELL VOLUME 82.8 fl (80-96); RDW 15.7 % (11.6-15.6); WHITE BLOOD COUNT 13.2 K/mm3 (4.0-10.0)
[2018-08-23 09:09] LABS: ANION GAP 8 MMOL/L (8-16); BLOOD UREA NITROGEN 15 mg/dL (7-18); CALCIUM 7.9 mg/dL (8.5-10.1); CHLORIDE 93 mmol/L (98-107); CO2 32 mmol/L (21-32); CREATININE 0.8 mg/dL (0.55-1.3); GLUCOSE,RANDOM 148 mg/dL (74-106); MAGNESIUM 2.2 mg/dL (1.8-2.4); PHOSPHOROUS 3.1 mg/dL (2.5-4.9); POTASSIUM 3.6 mmol/L (3.5-5.1); SODIUM 132 mmol/L (136-145)
[2018-08-23] MEDS: amLODIPine BESYLATE 10 MG TABLET (FP) PO SCH (11:02)
[2018-08-23] MEDS: LOSARTAN POTASSIUM 50 MG TABLET (FP) PO SCH (11:02)
[2018-08-23] MEDS: HYDROCHLOROTHIAZIDE 25 MG TABLET (FP) PO SCH (11:02)
[2018-08-23] MEDS: SENNOSIDES 8.6MG TABLET (FP) PO SCH ×2 (11:02→21:05)
[2018-08-23] MEDS: POLYETHYLENE GLYCOL 3350 119 GM BTL PO SCH ×2 (11:03→21:05)
[2018-08-23] MEDS: DOCUSATE SODIUM 100 MG CAPSULE (FP) PO SCH ×2 (11:03→21:05)
[2018-08-23 13:42] LABS: ALK PHOS 84 U/L (45-117); BILIRUBIN,DIRECT 0.2 mg/dL (0.0-0.2); BILIRUBIN,TOTAL 0.3 mg/dL (0.2-1); SGOT/AST 21 U/L (15-37); SGPT/ALT 18 U/L (13-61); TOT PROT 6.3 g/dl (6.4-8.2)
--- NOTE | 2018-08-23 14:05 | PN ---
Teaching Attending Note Name of Resident: London Pope ATTENDING PHYSICIAN STATEMENT I saw and evaluated the patient. I reviewed the resident's note and discussed the case with the resident. I agree with the resident's findings and plan as documented with exceptions below. SUBJECTIVE: Patient seen and examined. Still with abdominal pain. Right foot burning unchanged. Tolerating diet. OBJECTIVE: Vital Signs Period Temp Pulse Resp BP Sys/Reyes Pulse Ox Last 24 Hr 98.3 F-99.8 F 77-93 16-20 134-163/64-85 100-100 Intake & Output 08/20/18 08/21/18 08/22/18 08/23/18 23:59 23:59 23:59 23:59 Intake Total 1452 1092 1116 100 Output Total 50 160 Balance 1452 1092 1066 -60 General: sitting in bed in no acute distress Chest: poor effort, no rales or wheezing Abdomen: soft, RUQ tenderness overall unchanged, no voluntary or involuntary guarding or rigidity, positive bowel sounds Extremities: right toes gangrene overall unchanged Active Medications Acetaminophen (Tylenol -) 325 mg PO Q4H PRN PRN Reason: PAIN LEVEL 7 - 10 Stop: 08/23/18 17:23 Last Admin: 08/23/18 02:10 Dose: 325 mg Amlodipine Besylate (Norvasc -) 10 mg PO DAILY [facility] Last Admin: 08/23/18 11:02 Dose: 10 mg Atorvastatin Calcium (Lipitor -) 40 mg PO [facility] Last Admin: 08/22/18 21:44 Dose: 40 mg Clopidogrel Bisulfate (Plavix -) 75 mg PO DAILY [facility] Docusate Sodium (Colace -) 100 mg PO BID [facility] Last Admin: 08/23/18 11:03 Dose: 100 mg Heparin Sodium (Porcine) (Heparin -) 1,000 unit IVPUSH PRN PRN PRN Reason: Heparin Heparin Sodium (Porcine) (Heparin -) 5,000 unit IVPUSH PRN PRN PRN Reason: Heparin Last Admin: 08/21/18 08:55 Dose: 5,000 unit Hydrochlorothiazide (Hctz -) 50 mg PO DAILY [facility] Last Admin: 08/23/18 11:02 Dose: 50 mg Levofloxacin (Levaquin 500 Mg Premixed Ivpb -) 500 mg in 100 mls @ 100 mls/hr IVPB DAILY [facility]; Protocol Last Admin: 08/23/18 11:03 Dose: 100 mls/hr Metronidazole (Flagyl 500mg Premixed Ivpb -) 500 mg in 100 mls @ 100 mls/hr IVPB Q8H-IV [facility] Last Admin: 08/23/18 11:03 Dose: 100 mls/hr Heparin Sodium (Porcine) 25, (000 unit/ Sodium Chloride) 500 mls @ 16 mls/hr IV TITR [facility]; Protocol Insulin Aspart (Novolog Vial Sliding Scale -) 1 vial SQ Q6H [facility]; Protocol Last Admin: 08/23/18 13:21 Dose: Not Given Insulin Detemir (Levemir Vial) 5 units SQ HS [facility] Last Admin: 08/22/18 21:44 Dose: 5 units Losartan Potassium (Cozaar -) 100 mg PO DAILY [facility] Last Admin: 08/23/18 11:02 Dose: 100 mg Oxycodone HCl (Roxicodone -) 5 mg PO Q4H PRN PRN Reason: PAIN LEVEL 7 - 10 Last Admin: 08/23/18 02:09 Dose: 5 mg Polyethylene Glycol (Miralax (For Daily Use) -) 17 gm PO BID [facility] Last Admin: 08/23/18 11:03 Dose: Not Given Senna (Senna -) 1 tab PO BID [facility] Last Admin: 08/23/18 11:02 Dose: 1 tab Laboratory Results - last 24 hr 08/18/18 08/22/18 08/23/18 16:50 21:03 06:00 WBC 13.2 H RBC 3.30 L Hgb 8.6 L Hct 27.3 L MCV 82.8 MCH 25.9 MCHC 31.3 L RDW 15.7 H Plt Count Platelet Comment Mod plt clumping PTT (Actin FS) Sodium Potassium Chloride Carbon Dioxide Anion Gap BUN Creatinine Creat Clearance w eGFR POC Glucometer 153 Random Glucose Calcium Phosphorus Magnesium Total Bilirubin Direct Bilirubin AST ALT Alkaline Phosphatase Total Protein Albumin Heparin-Ind Plt Ab Scrn 0.805 H 08/23/18 08/23/18 08/23/18 06:00 06:18 09:38 WBC RBC Hgb Hct MCV MCH MCHC RDW Plt Count Platelet Comment PTT (Actin FS) 29.5 Sodium 132 L Potassium 3.6 Chloride 93 L Carbon Dioxide 32 Anion Gap 8 BUN 15 Creatinine 0.8 Creat Clearance w eGFR > 60 POC Glucometer 151 Random Glucose 148 H Calcium 7.9 L Phosphorus 3.1 Magnesium 2.2 Total Bilirubin 0.3 Direct Bilirubin 0.2 AST 21 ALT 18 Alkaline Phosphatase 84 Total Protein 6.3 L Albumin 2.0 L Heparin-Ind Plt Ab Scrn Microbiology 08/17/18 12:10 Blood - Peripheral Venous Blood Culture - Final NO GROWTH AFTER 5 DAYS INCUBATION 08/17/18 11:50 Blood - Peripheral Venous Blood Culture - Final NO GROWTH AFTER 5 DAYS INCUBATION 08/07/18 14:55 Blood - Peripheral Venous Blood Culture - Final NO GROWTH AFTER 5 DAYS INCUBATION 08/07/18 13:15 Blood - Peripheral Venous Blood Culture - Final NO GROWTH AFTER 5 DAYS INCUBATION 08/07/18 14:06 Urine - Urine Clean Catch Urine Culture - Final Lactobacillus Species ASSESSMENT AND PLAN: 83 year old woman with a history of type 2 DM, HTN admitted for Right foot ischemia and found to have HTN urgency on presentation -Right foot dry gangrene/PVD s/p angio/popliteal artery/SFA stent placement 08/08 , poor circulation to foot with single vessel run off -Acute cholecystitis -Pseudothrombocytopenia -HTN urgen -Constipation, opioid inducted -Normocytic anemia -IDDM, A1c 9.4 -Asymptomatic bacteruria Plan: S/p Right cholecystostomy tube placement 08/22 Resume plavix/heparin drip now. ID/Surgery input appreciated. levaquin/flagyl. Podiatry/vascular input noted. Patient recommended TMA or BKA. Will continue to address with patient. Continue statin. Hematology input noted. PLatelet count to be sent in blue tube. Bowel regimen. s/p venofer. Levemir, ISS, titrate as needed. Hold oral agents. Dispo pending resolution of medical concerns. Family meeting to discuss further plan for right foot gangrene, as patient continues to be on antibiotics and heparin drip. Palliative care to address overall goals of care. Plan discussed with patient, all questions answered.
[2018-08-23] MEDS ORDERED: HEPARIN SOD,PORK IN 0.45% NACL 25,000 UNIT/500 ML INFUS.BAG IVPB SCH (14:15)
[2018-08-23] MEDS: HEPARIN - 25,000 UNIT in SODIUM CHLORIDE 495 ML IV SCH (15:56)
[2018-08-23] MEDS: CLOPIDOGREL BISULFATE 75 MG TABLET (FP) PO SCH (15:56)
--- NOTE | 2018-08-23 18:39 | PN ---
Physical Exam: SUBJECTIVE: Patient seen and examined at bedside. S/P cholecystostomy procedure yesterday with I.R. Resting in bed, no acute events overnight. OBJECTIVE: Vital Signs Period Temp Pulse Resp BP Sys/Reyes Pulse Ox Last 24 Hr 98.3 F-99.8 F 75-93 20-20 134-156/62-85 100-100 GENERAL: Resting in bed comfortably HEAD: NC/AT EYES: EOMI. No scleral icterus conjunctiva not injected LUNGS: DEC BS at bases HEART: RRR No MRG S1S2 ABDOMEN: Percutaneous cholecystostomy tube in place, draining well. EXTREMITIES: Drty gangrene affectin large toe right foot, 3rd,4th, and 5t toes as well. Laboratory Results - last 24 hr 08/22/18 08/23/18 08/23/18 21:03 06:00 06:00 WBC 13.2 H RBC 3.30 L Hgb 8.6 L Hct 27.3 L MCV 82.8 MCH 25.9 MCHC 31.3 L RDW 15.7 H Plt Count Platelet Comment Mod plt clumping PTT (Actin FS) Sodium 132 L Potassium 3.6 Chloride 93 L Carbon Dioxide 32 Anion Gap 8 BUN 15 Creatinine 0.8 Creat Clearance w eGFR > 60 POC Glucometer 153 Random Glucose 148 H Calcium 7.9 L Phosphorus 3.1 Magnesium 2.2 Total Bilirubin 0.3 Direct Bilirubin 0.2 AST 21 ALT 18 Alkaline Phosphatase 84 Total Protein 6.3 L Albumin 2.0 L 08/23/18 08/23/18 06:18 09:38 WBC RBC Hgb Hct MCV MCH MCHC RDW Plt Count Platelet Comment PTT (Actin FS) 29.5 Sodium Potassium Chloride Carbon Dioxide Anion Gap BUN Creatinine Creat Clearance w eGFR POC Glucometer 151 Random Glucose Calcium Phosphorus Magnesium Total Bilirubin Direct Bilirubin AST ALT Alkaline Phosphatase Total Protein Albumin Active Medications Generic Name Dose Route Start Last Admin Trade Name Freq PRN Reason Stop Dose Admin Amlodipine Besylate 10 mg 08/10/18 10:00 08/23/18 11:02 Norvasc - PO 10 mg DAILY [facility] Administration Atorvastatin Calcium 40 mg 08/13/18 22:00 08/22/18 21:44 Lipitor - PO 40 mg HS [facility] Administration Clopidogrel Bisulfate 75 mg 08/23/18 14:15 08/23/18 15:56 Plavix - PO 75 mg DAILY [facility] Administration Docusate Sodium 100 mg 08/09/18 22:00 08/23/18 11:03 Colace - PO 100 mg BID [facility] Administration Heparin Sodium (Porcine) 1,000 unit 08/18/18 22:50 Heparin - IVPUSH PRN PRN Heparin Heparin Sodium (Porcine) 5,000 unit 08/18/18 22:50 08/21/18 08:55 Heparin - IVPUSH 5,000 unit PRN PRN Administration Heparin Hydrochlorothiazide 50 mg 08/17/18 10:00 08/23/18 11:02 Hctz - PO 50 mg DAILY [facility] Administration Levofloxacin 500 mg in 100 mls @ 100 mls/hr 08/18/18 16:00 08/23/18 11:03 Levaquin 500 Mg Premixed Ivpb - IVPB 100 mls/hr DAILY [facility] Administration Protocol Metronidazole 500 mg in 100 mls @ 100 mls/hr 08/18/18 16:20 08/23/18 11:03 Flagyl 500mg Premixed Ivpb - IVPB 100 mls/hr Q8H-IV [facility] Administration Heparin Sodium (Porcine) 25, 500 mls @ 16 mls/hr 08/23/18 14:15 08/23/18 15: 56 000 unit/ Sodium Chloride IV 800 unit/hr TITR [facility] 16 mls/hr Administration Protocol 800 UNIT/HR Insulin Aspart 1 vial 08/19/18 18:00 08/23/18 13:21 Novolog Vial Sliding Scale - SQ Not Given Q6H [facility] Protocol Insulin Detemir 5 units 08/17/18 22:00 08/22/18 21:44 Levemir Vial SQ 5 units HS [facility] Administration Losartan Potassium 100 mg 08/17/18 10:00 08/23/18 11:02 Cozaar - PO 100 mg DAILY [facility] Administration Oxycodone HCl 5 mg 08/20/18 17:24 08/23/18 02:09 Roxicodone - PO 5 mg Q4H PRN Administration PAIN LEVEL 7 - 10 Polyethylene Glycol 17 gm 08/14/18 10:00 08/23/18 11:03 Miralax (For Daily Use) - PO Not Given BID [facility] Senna 1 tab 08/09/18 22:00 08/23/18 11:02 Senna - PO 1 tab BID [facility] Administration ASSESSMENT/PLAN: This is an 83 year old woman with a history of type 2 DM, HTN who presented to the ED with right foot pain. 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 Pt. Platelets dropped to 45k however when retested in citrate, count was 297K. Hematology on board. --Per vascular surgery--> TMA, podiatry consult for necrosis of R big toe, 4th and 5th toes r foot. -Dr Daugherty on board, TMA was planned however pt declined and opted for a BKA. Pt and family ultimately refused BKA and desired no surgical intervention in hopes of autoamputation. # Cholecystitis -Cholelithiasis with pericholecystic fluid with mild thickening of the gallbladder alas compatible with acute cholecystitis. -Evaluated by Dr Andrade 08/20/18. Recommended HIDA scan and if + recommends Cholecystostomy tube. -Levaquin/Flagyl day 5. -S/P Percutaneous IR Guided Cholecystostomy w/ Dr Chase # HTN - Norvasc 10 mg -Losartan to 100 w/ HCTZ 12.5 combo #. Type 2 DM - Metformin, Januvia held - Continue Novolog sliding scale Ucx- + for lactobacilus -Asymptomatic will not treat #FEN No Fluids Monitor electrolytes Clear liquids DVT ppx: Resume Heparin Dispo: Med-surg Visit type - Emergency Visit Emergency Visit: Yes ED Registration Date: 08/07/18 Care time: The patient presented to the Emergency Department on the above date and was hospitalized for further evaluation of their emergent condition. - New Patient This patient is new to me today: No - Critical Care Critical Care patient: No - Discharge Referral Referred to [facility] Med P.C.: No
[2018-08-23] MEDS: INSULIN (LEVEMIR) 100 UNITS/ML UNITS SQ SCH (21:04)
[2018-08-23] MEDS: ATORVASTATIN CA 40 MG TABLET (FP) PO SCH (21:05)
[2018-08-23 23:10] LABS: INR 1.43 (0.83-1.09); PROTHROMBIN TIME (PATIENT) 16.9 SEC (9.7-13.0)
[2018-08-23 23:12] LABS: ACTIVATED PTT 23.2 SECONDS (25.2-36.5)
[2018-08-23] MEDS: HEPARIN NA (PORCINE) 5,000 UNITS/ML 1ML VIAL IVPUSH PRN (23:28)
[2018-08-24] MEDS ORDERED: PT OWN MED DRAWER 7, Y5N ONE (02:50)
[2018-08-24] MEDS: oxyCODONE HCL 5 MG TABLET PO PRN ×2 (05:20→10:33)
[2018-08-24] MEDS: INSULIN SLIDING SCALE (NOVOLOG) 1 VIAL SQ SCH ×3 (06:44→17:41)
[2018-08-24 07:42] LABS: ALK PHOS 80 U/L (45-117); ANION GAP 8 MMOL/L (8-16); BILIRUBIN,TOTAL 0.3 mg/dL (0.2-1); BLOOD UREA NITROGEN 17 mg/dL (7-18); CALCIUM 8.1 mg/dL (8.5-10.1); CHLORIDE 93 mmol/L (98-107); CO2 33 mmol/L (21-32); CREATININE 0.8 mg/dL (0.55-1.3); GLUCOSE,RANDOM 151 mg/dL (74-106); MAGNESIUM 2.1 mg/dL (1.8-2.4); PHOSPHOROUS 2.9 mg/dL (2.5-4.9); POTASSIUM 3.6 mmol/L (3.5-5.1); SGOT/AST 24 U/L (15-37); SGPT/ALT 16 U/L (13-61); SODIUM 134 mmol/L (136-145); TOT PROT 6.4 g/dl (6.4-8.2)
[2018-08-24 10:25] LABS: BASO % 0.4 % (0-2.0); EOS % 1.1 % (0-4.5); HEMATOCRIT 26.8 % (32.4-45.2); HEMOGLOBIN 9.2 GM/dL (10.7-15.3); LYMPH % 12.6 % (8-40); MCH 27.9 pg (25.7-33.7); MCHC 34.3 g/dl (32.0-36.0); MEAN CELL VOLUME 81.5 fl (80-96); MONO % 10.3 % (3.8-10.2); NEUT % 75.6 % (42.8-82.8); RBC 3.29 M/mm3 (3.60-5.2); RDW 15.4 % (11.6-15.6); WHITE BLOOD COUNT 10.9 K/mm3 (4.0-10.0)
[2018-08-24] MEDS: CLOPIDOGREL BISULFATE 75 MG TABLET (FP) PO SCH (10:32)
[2018-08-24] MEDS: LOSARTAN POTASSIUM 50 MG TABLET (FP) PO SCH (10:33)
[2018-08-24] MEDS: HYDROCHLOROTHIAZIDE 25 MG TABLET (FP) PO SCH (10:33)
[2018-08-24] MEDS: DOCUSATE SODIUM 100 MG CAPSULE (FP) PO SCH ×2 (10:33→22:47)
[2018-08-24] MEDS: amLODIPine BESYLATE 10 MG TABLET (FP) PO SCH (10:34)
[2018-08-24] MEDS: SENNOSIDES 8.6MG TABLET (FP) PO SCH ×2 (10:34→22:47)
[2018-08-24] MEDS: POLYETHYLENE GLYCOL 3350 119 GM BTL PO SCH ×2 (10:58→22:31)
[2018-08-24] MEDS ORDERED: INSULIN (NOVOLOG) ASPART 100 UNITS/ML 10ML VIAL ONE ×2 (11:55→18:40)
[2018-08-24] MEDS: HEPARIN - 25,000 UNIT in SODIUM CHLORIDE 495 ML IV SCH ×2 (14:40→20:25)
--- NOTE | 2018-08-24 14:49 | PN ---
Progress Note (short form) - Note Progress Note: alert s/p IR drainage of gallbladder less abdominal pain Vital Signs Period Temp Pulse Resp BP Sys/Reyes Pulse Ox Last 24 Hr 98.3 F-99.1 F 76-82 20-20 136-163/67-75 94 cor-rrr lungs clear abd soft,n+ruq biliary drain ext dry gangrene of the Right foot CBC, BMP 08/24/18 06:30 08/24/18 06:30 Microbiology 08/22/18 15:45 Cholecystectomy Fluid Gram Stain - Final 08/22/18 15:45 Cholecystectomy Fluid Body Fluid Culture - Preliminary NO AEROBIC GROWTH, 24 HRS 08/17/18 12:10 Blood - Peripheral Venous Blood Culture - Final NO GROWTH AFTER 5 DAYS INCUBATION 08/17/18 11:50 Blood - Peripheral Venous Blood Culture - Final NO GROWTH AFTER 5 DAYS INCUBATION 08/07/18 14:55 Blood - Peripheral Venous Blood Culture - Final NO GROWTH AFTER 5 DAYS INCUBATION 08/07/18 13:15 Blood - Peripheral Venous Blood Culture - Final NO GROWTH AFTER 5 DAYS INCUBATION 08/07/18 14:06 Urine - Urine Clean Catch Urine Culture - Final Lactobacillus Species a/p cholycystitis continue levaquin and flagyl s/p IR drainage 08/22 suspect cultures negative due to prior antiiboitics would continue levaquin/flagyl through the weekend leukocytosis resolving with drainage of gallbladder gangrene RLE unchanged pen allergy Problem List - Problems (1) Leukocytosis Code(s): D72.829 - ELEVATED WHITE BLOOD CELL COUNT, UNSPECIFIED (2) Lower limb ischemia Code(s): I99.8 - OTHER DISORDER OF CIRCULATORY SYSTEM
--- NOTE | 2018-08-24 16:10 | PN ---
Physical Exam: SUBJECTIVE: Patient seen and examined at bedside. Resting in bed comfortably. No acute events overnight. OBJECTIVE: Vital Signs Period Temp Pulse Resp BP Sys/Reyes Pulse Ox Last 24 Hr 98.3 F-99.1 F 76-82 18-20 136-163/59-75 94-94 GENERAL: NAD Awake Alert HEAD: NC/AT EYES: EOMI. No scleral icterus conjunctiva not injected LUNGS: CTA B/L HEART: RRR No MRG S1S2 ABDOMEN: Percutaneous cholecystostomy tube remains in place, good output. EXTREMITIES: Right Toe gangrene, 3rd, 4th, 5th toes gangrene as well. Laboratory Results - last 24 hr 08/23/18 08/23/18 08/23/18 18:42 20:55 21:30 WBC RBC Hgb Hct MCV MCH MCHC RDW Plt Count MPV Absolute Neuts (auto) Neutrophils % Lymphocytes % Monocytes % Eosinophils % Basophils % Nucleated RBC % PT with INR 16.90 H INR 1.43 H PTT (Actin FS) 23.2 L Sodium Potassium Chloride Carbon Dioxide Anion Gap BUN Creatinine Creat Clearance w eGFR POC Glucometer 222 157 Random Glucose Calcium Phosphorus Magnesium Total Bilirubin AST ALT Alkaline Phosphatase Total Protein Albumin 08/24/18 08/24/18 08/24/18 06:21 06:30 06:30 WBC 10.9 H RBC 3.29 L Hgb 9.2 L Hct 26.8 L MCV 81.5 MCH 27.9 MCHC 34.3 RDW 15.4 Plt Count Application Coordinator MPV No Result Required. Absolute Neuts (auto) 8.2 H Neutrophils % 75.6 Lymphocytes % 12.6 D Monocytes % 10.3 H Eosinophils % 1.1 D Basophils % 0.4 Nucleated RBC % 0 PT with INR INR PTT (Actin FS) Sodium 134 L Potassium 3.6 Chloride 93 L Carbon Dioxide 33 H Anion Gap 8 BUN 17 Creatinine 0.8 Creat Clearance w eGFR > 60 POC Glucometer 169 Random Glucose 151 H Calcium 8.1 L Phosphorus 2.9 Magnesium 2.1 Total Bilirubin 0.3 AST 24 ALT 16 Alkaline Phosphatase 80 Total Protein 6.4 Albumin 2.0 L 08/24/18 08/24/18 09:50 11:50 WBC RBC Hgb Hct MCV MCH MCHC RDW Plt Count MPV Absolute Neuts (auto) Neutrophils % Lymphocytes % Monocytes % Eosinophils % Basophils % Nucleated RBC % PT with INR INR PTT (Actin FS) 64.3 H Sodium Potassium Chloride Carbon Dioxide Anion Gap BUN Creatinine Creat Clearance w eGFR POC Glucometer 288 Random Glucose Calcium Phosphorus Magnesium Total Bilirubin AST ALT Alkaline Phosphatase Total Protein Albumin Active Medications Generic Name Dose Route Start Last Admin Trade Name Freq PRN Reason Stop Dose Admin Amlodipine Besylate 10 mg 08/10/18 10:00 08/24/18 10:34 Norvasc - PO 10 mg DAILY [facility] Administration Atorvastatin Calcium 40 mg 08/13/18 22:00 08/23/18 21:05 Lipitor - PO 40 mg HS [facility]NN Administration Clopidogrel Bisulfate 75 mg 08/23/18 14:15 08/24/18 10:32 Plavix - PO 75 mg DAILY [facility] Administration Docusate Sodium 100 mg 08/09/18 22:00 08/24/18 10:33 Colace - PO 100 mg BID FL[facility]NN Administration Heparin Sodium (Porcine) 1,000 unit 08/18/18 22:50 Heparin - IVPUSH PRN PRN Heparin Heparin Sodium (Porcine) 5,000 unit 08/18/18 22:50 08/23/18 23:28 Heparin - IVPUSH 5,000 unit PRN PRN Administration Heparin Hydrochlorothiazide 50 mg 08/17/18 10:00 08/24/18 10:33 Hctz - PO 50 mg DAILY [facility] Administration Levofloxacin 500 mg in 100 mls @ 100 mls/hr 08/18/18 16:00 08/24/18 11:56 Levaquin 500 Mg Premixed Ivpb - IVPB 100 mls/hr DAILY [facility] Administration Protocol Metronidazole 500 mg in 100 mls @ 100 mls/hr 08/18/18 16:20 08/24/18 10:34 Flagyl 500mg Premixed Ivpb - IVPB 100 mls/hr Q8H-IV [facility] Administration Heparin Sodium (Porcine) 25, 500 mls @ 16 mls/hr 08/23/18 14:15 08/24/18 14: 40 000 unit/ Sodium Chloride IV Not Given TITR [facility] Protocol 800 UNIT/HR Insulin Aspart 1 vial 08/19/18 18:00 08/24/18 11:59 Novolog Vial Sliding Scale - SQ 6 units Q6H [facility] Administration Protocol Insulin Detemir 5 units 08/17/18 22:00 08/23/18 21:04 Levemir Vial SQ 5 units HS [facility] Administration Losartan Potassium 100 mg 08/17/18 10:00 08/24/18 10:33 Cozaar - PO 100 mg DAILY [facility] Administration Oxycodone HCl 5 mg 08/20/18 17:24 08/24/18 10:33 Roxicodone - PO 5 mg Q4H PRN Administration PAIN LEVEL 7 - 10 Polyethylene Glycol 17 gm 08/14/18 10:00 08/24/18 10:58 Miralax (For Daily Use) - PO Not Given BID FLYNN Senna 1 tab 08/09/18 22:00 08/24/18 10:34 Senna - PO 1 tab BID [facility] Administration ASSESSMENT/PLAN: This is an 83 year old woman with a history of type 2 DM, HTN who presented to the ED with right foot pain. 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 -08/24/18 Pt has reconsidered surgical intervention. Dr Yusuf contacted and will speak to family. # Cholecystitis -Levaquin/Flagyl day 6. -S/P Percutaneous IR Guided Cholecystostomy w/ Dr Chase ID On Board # HTN - Norvasc 10 mg -Losartan to 100 w/ HCTZ 12.5 combo #. Type 2 DM - Metformin, Januvia held - Continue Novolog sliding scale Ucx- + for lactobacilus -Asymptomatic will not treat #FEN No Fluids Monitor electrolytes Clear liquids DVT ppx: Heparin gtt Dispo: Med-surg Visit type - Emergency Visit Emergency Visit: Yes ED Registration Date: 08/07/18 Care time: The patient presented to the Emergency Department on the above date and was hospitalized for further evaluation of their emergent condition. - New Patient This patient is new to me today: No - Critical Care Critical Care patient: No - Discharge Referral Referred to [facility] Med [facility] No
--- NOTE | 2018-08-24 18:13 | PN ---
Teaching Attending Note Name of Resident: London Pope ATTENDING PHYSICIAN STATEMENT I saw and evaluated the patient. I reviewed the resident's note and discussed the case with the resident. I agree with the resident's findings and plan as documented with exceptions below. SUBJECTIVE: Patient seen and examined. Abdominal pain improved, tolerating diet. Still with right foot pain, overall unchanged. OBJECTIVE: Vital Signs Period Temp Pulse Resp BP Sys/Reyes Pulse Ox Last 24 Hr 98.3 F-99.1 F 76-82 18-20 141-163/59-75 94-94 Intake & Output 08/21/18 08/22/18 08/23/18 08/24/18 23:59 23:59 23:59 23:59 Intake Total 1092 3402 887 7903 Output Total 50 310 140 Balance 1092 1066 -10 1030 General: sitting in bed in no acute distress Abdomen:soft, improved RUQ tenderness, no voluntary or involuntary guarding or rigidity Extremities: some progression, line of demarcation noted at the gangrenous site , dusky dorsum right foot Active Medications Amlodipine Besylate (Norvasc -) 10 mg PO DAILY [facility] Last Admin: 08/24/18 10:34 Dose: 10 mg Atorvastatin Calcium (Lipitor -) 40 mg PO HS [facility] Last Admin: 08/23/18 21:05 Dose: 40 mg Clopidogrel Bisulfate (Plavix -) 75 mg PO DAILY [facility] Last Admin: 08/24/18 10:32 Dose: 75 mg Docusate Sodium (Colace -) 100 mg PO BID [facility] Last Admin: 08/24/18 10:33 Dose: 100 mg Heparin Sodium (Porcine) (Heparin -) 1,000 unit IVPUSH PRN PRN PRN Reason: Heparin Heparin Sodium (Porcine) (Heparin -) 5,000 unit IVPUSH PRN PRN PRN Reason: Heparin Last Admin: 08/23/18 23:28 Dose: 5,000 unit Hydrochlorothiazide (Hctz -) 50 mg PO DAILY [facility] Last Admin: 08/24/18 10:33 Dose: 50 mg Levofloxacin (Levaquin 500 Mg Premixed Ivpb -) 500 mg in 100 mls @ 100 mls/hr IVPB DAILY [facility]; Protocol Last Admin: 08/24/18 11:56 Dose: 100 mls/hr Metronidazole (Flagyl 500mg Premixed Ivpb -) 500 mg in 100 mls @ 100 mls/hr IVPB Q8H-IV [facility] Last Admin: 08/24/18 17:47 Dose: 100 mls/hr Heparin Sodium (Porcine) 25, (000 unit/ Sodium Chloride) 500 mls @ 16 mls/hr IV TITR [facility]NN; Protocol Last Admin: 08/24/18 14:40 Dose: Not Given Insulin Aspart (Novolog Vial Sliding Scale -) 1 vial SQ Q6H [facility]; Protocol Last Admin: 08/24/18 17:41 Dose: 4 units Insulin Detemir (Levemir Vial) 5 units SQ HS [facility] Last Admin: 08/23/18 21:04 Dose: 5 units Losartan Potassium (Cozaar -) 100 mg PO DAILY [facility] Last Admin: 08/24/18 10:33 Dose: 100 mg Oxycodone HCl (Roxicodone -) 5 mg PO Q4H PRN PRN Reason: PAIN LEVEL 7 - 10 Last Admin: 08/24/18 10:33 Dose: 5 mg Polyethylene Glycol (Miralax (For Daily Use) -) 17 gm PO BID [facility] Last Admin: 08/24/18 10:58 Dose: Not Given Senna (Senna -) 1 tab PO BID [facility] Last Admin: 08/24/18 10:34 Dose: 1 tab Laboratory Results - last 24 hr 08/23/18 08/23/18 08/23/18 18:42 20:55 21:30 WBC RBC Hgb Hct MCV MCH MCHC RDW Plt Count MPV Absolute Neuts (auto) Neutrophils % Lymphocytes % Monocytes % Eosinophils % Basophils % Nucleated RBC % PT with INR 16.90 H INR 1.43 H PTT (Actin FS) 23.2 L Sodium Potassium Chloride Carbon Dioxide Anion Gap BUN Creatinine Creat Clearance w eGFR POC Glucometer 222 157 Random Glucose Calcium Phosphorus Magnesium Total Bilirubin AST ALT Alkaline Phosphatase Total Protein Albumin 08/24/18 08/24/18 08/24/18 06:21 06:30 06:30 WBC 10.9 H RBC 3.29 L Hgb 9.2 L Hct 26.8 L MCV 81.5 MCH 27.9 MCHC 34.3 RDW 15.4 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 Absolute Neuts (auto) 8.2 H Neutrophils % 75.6 Lymphocytes % 12.6 D Monocytes % 10.3 H Eosinophils % 1.1 D Basophils % 0.4 Nucleated RBC % 0 PT with INR INR PTT (Actin FS) Sodium 134 L Potassium 3.6 Chloride 93 L Carbon Dioxide 33 H Anion Gap 8 BUN 17 Creatinine 0.8 Creat Clearance w eGFR > 60 POC Glucometer 169 Random Glucose 151 H Calcium 8.1 L Phosphorus 2.9 Magnesium 2.1 Total Bilirubin 0.3 AST 24 ALT 16 Alkaline Phosphatase 80 Total Protein 6.4 Albumin 2.0 L 08/24/18 08/24/18 09:50 11:50 WBC RBC Hgb Hct MCV MCH MCHC RDW Plt Count MPV Absolute Neuts (auto) Neutrophils % Lymphocytes % Monocytes % Eosinophils % Basophils % Nucleated RBC % PT with INR INR PTT (Actin FS) 64.3 H Sodium Potassium Chloride Carbon Dioxide Anion Gap BUN Creatinine Creat Clearance w eGFR POC Glucometer 288 Random Glucose Calcium Phosphorus Magnesium Total Bilirubin AST ALT Alkaline Phosphatase Total Protein Albumin ASSESSMENT AND PLAN: 83 year old woman with a history of type 2 DM, HTN admitted for Right foot ischemia and found to have HTN urgency on presentation -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 ID/Surgery input appreciated. levaquin/flagyl. Podiatry/vascular input noted. Discussed with patient in detail, about progression of right foot gangrene and risk for infection, sepsis and . Patient able to understand the same, agreable to surgery and willing to discuss with podiatry. Wants her daughter Meagan to be involved and surrogate decision maker. Dr. Yusuf updated. Daughter Meagan called, discussed with detail, provided contact information for Dr. Yusuf Will follow up for surgical plans. Continue statin. Hematology input noted. Platelet count to be sent in blue tube. Bowel regimen. s/p venofer. Levemir, ISS, titrate as needed. Hold oral agents. Dispo pending resolution of medical concerns. Dispo pending surgical plans Total time spent including patient visit, discussion with patient, daughter, podiatry, and co-ordination of care 40 min.
[2018-08-24] MEDS: ATORVASTATIN CA 40 MG TABLET (FP) PO SCH (22:47)
[2018-08-24] MEDS: INSULIN (LEVEMIR) 100 UNITS/ML UNITS SQ SCH (22:47)
[2018-08-25] MEDS: INSULIN SLIDING SCALE (NOVOLOG) 1 VIAL SQ SCH ×5 (00:58→23:00)
[2018-08-25] MEDS: oxyCODONE HCL 5 MG TABLET PO PRN (01:01)
[2018-08-25] MEDS ORDERED: INSULIN (NOVOLOG) ASPART 100 UNITS/ML 10ML VIAL ONE ×2 (06:17→11:48)
[2018-08-25 09:22] LABS: HEMATOCRIT 27.3 % (32.4-45.2); HEMOGLOBIN 9.2 GM/dL (10.7-15.3); MCH 27.7 pg (25.7-33.7); MCHC 33.8 g/dl (32.0-36.0); MEAN CELL VOLUME 81.9 fl (80-96); RBC 3.33 M/mm3 (3.60-5.2); RDW 15.8 % (11.6-15.6); WHITE BLOOD COUNT 10.4 K/mm3 (4.0-10.0)
[2018-08-25 09:26] LABS: ADD RBC MORPHOLOGY YES
[2018-08-25 10:00] LABS: ALK PHOS 73 U/L (45-117); ANION GAP 10 MMOL/L (8-16); BILIRUBIN,TOTAL 0.3 mg/dL (0.2-1); BLOOD UREA NITROGEN 14 mg/dL (7-18); CALCIUM 8.3 mg/dL (8.5-10.1); CHLORIDE 96 mmol/L (98-107); CO2 29 mmol/L (21-32); CREATININE 0.7 mg/dL (0.55-1.3); GLUCOSE,RANDOM 159 mg/dL (74-106); POTASSIUM 3.6 mmol/L (3.5-5.1); SGOT/AST 25 U/L (15-37); SGPT/ALT 14 U/L (13-61); SODIUM 136 mmol/L (136-145); TOT PROT 6.2 g/dl (6.4-8.2)
[2018-08-25] MEDS: CLOPIDOGREL BISULFATE 75 MG TABLET (FP) PO SCH (10:58)
[2018-08-25] MEDS: amLODIPine BESYLATE 10 MG TABLET (FP) PO SCH (10:58)
[2018-08-25] MEDS: HYDROCHLOROTHIAZIDE 25 MG TABLET (FP) PO SCH (10:58)
[2018-08-25] MEDS: DOCUSATE SODIUM 100 MG CAPSULE (FP) PO SCH ×2 (11:00→22:00)
[2018-08-25] MEDS: SENNOSIDES 8.6MG TABLET (FP) PO SCH ×2 (11:00→22:00)
[2018-08-25] MEDS: POLYETHYLENE GLYCOL 3350 119 GM BTL PO SCH ×2 (11:00→22:00)
[2018-08-25] MEDS: LOSARTAN POTASSIUM 50 MG TABLET (FP) PO SCH (11:12)
--- NOTE | 2018-08-25 11:36 | PN ---
Physical Exam: SUBJECTIVE: Patient seen and examined at bedside. Still has foot pain. Still has belly pain. No other complaints at this time. 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 Absolute Neuts (auto) Neutrophils % Lymphocytes % Nucleated RBC % PTT (Actin FS) Sodium Potassium Chloride Carbon Dioxide Anion Gap BUN Creatinine Creat Clearance w eGFR POC Glucometer 288 220 Random Glucose Calcium Total Bilirubin AST ALT Alkaline Phosphatase Total Protein Albumin Stool Occult Blood 08/24/18 08/24/18 08/25/18 22:30 22:33 06:20 RBC Hgb Hct MCV MCH MCHC RDW Plt Count MPV Absolute Neuts (auto) Neutrophils % Lymphocytes % Nucleated RBC % PTT (Actin FS) Sodium Potassium Chloride Carbon Dioxide Anion Gap BUN Creatinine Creat Clearance w eGFR POC Glucometer 128 148 Random Glucose Calcium Total Bilirubin AST ALT Alkaline Phosphatase Total Protein Albumin Stool Occult Blood Negative 08/25/18 08/25/18 08/25/18 08:00 08:30 09:00 RBC 3.33 L Hgb 9.2 L Hct 27.3 L MCV 81.9 MCH 27.7 MCHC 33.8 RDW 15.8 H Plt Count MPV Absolute Neuts (auto) 7.8 Neutrophils % No Result Required. Lymphocytes % No Result Required. Nucleated RBC % 0 PTT (Actin FS) 59.8 H Sodium 136 Potassium 3.6 Chloride 96 L Carbon Dioxide 29 Anion Gap 10 BUN 14 Creatinine 0.7 Creat Clearance w eGFR > 60 POC Glucometer Random Glucose 159 H Calcium 8.3 L Total Bilirubin 0.3 AST 25 ALT 14 Alkaline Phosphatase 73 Total Protein 6.2 L Albumin 2.0 L Stool Occult Blood Active Medications Generic Name Dose Route Start Last Admin Trade Name Manjula PRN Reason Stop Dose Admin Amlodipine Besylate 10 mg 08/10/18 10:00 08/25/18 10:58 Norvasc - PO 10 mg DAILY [facility]NN Administration Atorvastatin Calcium 40 mg 08/13/18 22:00 08/24/18 22:47 Lipitor - PO 40 mg HS FLYNN Administration Clopidogrel Bisulfate 75 mg 08/23/18 14:15 08/25/18 10:58 Plavix - PO 75 mg DAILY FLYNN Administration Docusate Sodium 100 mg 08/09/18 22:00 08/25/18 11:00 Colace - PO Not Given BID FLYNN Heparin Sodium (Porcine) 1,000 unit 08/18/18 22:50 Heparin - IVPUSH PRN PRN Heparin Heparin Sodium (Porcine) 5,000 unit 08/18/18 22:50 08/23/18 23:28 Heparin - IVPUSH 5,000 unit PRN PRN Administration Heparin Hydrochlorothiazide 50 mg 08/17/18 10:00 08/25/18 10:58 Hctz - PO 50 mg DAILY [facility]NN Administration Levofloxacin 500 mg in 100 mls @ 100 mls/hr 08/18/18 16:00 08/24/18 11:56 Levaquin 500 Mg Premixed Ivpb - IVPB 100 mls/hr DAILY [facility] Administration Protocol Metronidazole 500 mg in 100 mls @ 100 mls/hr 08/18/18 16:20 08/25/18 10:58 Flagyl 500mg Premixed Ivpb - IVPB 100 mls/hr Q8H-IV [facility]NN Administration Heparin Sodium (Porcine) 25, 500 mls @ 16 mls/hr 08/23/18 14:15 08/24/18 20: 25 000 unit/ Sodium Chloride IV 950 unit/hr TITR FLYNN 19 mls/hr Administration Protocol 800 UNIT/HR Insulin Aspart 1 vial 08/19/18 18:00 08/25/18 06:22 Novolog Vial Sliding Scale - SQ Not Given Q6H [facility] Protocol Insulin Detemir 5 units 08/17/18 22:00 08/24/18 22:47 Levemir Vial SQ 5 units HS FLYNN Administration Losartan Potassium 100 mg 08/17/18 10:00 08/25/18 11:12 Cozaar - PO 100 mg DAILY [facility] Administration Oxycodone HCl 5 mg 08/20/18 17:24 08/25/18 01:01 Roxicodone - PO 5 mg Q4H PRN Administration PAIN LEVEL 7 - 10 Polyethylene Glycol 17 gm 08/14/18 10:00 08/25/18 11:00 Miralax (For Daily Use) - PO Not Given BID [facility]YNN Senna 1 tab 08/09/18 22:00 08/25/18 11:00 Senna - PO Not Given BID FLYNN ASSESSMENT/PLAN: 83 year old woman with a history of type 2 DM, HTN admitted for Right foot ischemia and found to have HTN urgency on presentation #Cholecystitis -s/p cholecystostomy tube placement. Draining well -ID on board. Levaquin/flagyl throughout the weekend -will need cholecystectomy at a later date #Right foot dry gangrene -elio / PVD -s/p angio/popliteal artery/SFA stent placement 08/08, poor circulation to foot with single vessel run off -Pt amenable to intervention by podiatry -Dr. Yusuf in contact with pt and family. Will f/u for recs #Pseudothrombocytopenia -plts to be drawn in blue top tube #HTN urgen -BP currently controlled -hctz -norvasc #Constipation, opioid induced -colcae, senna, miralax #Normocytic anemia -stable #IDDM -ISS -BGM #Asymptomatic bacteruria -no treatment at this time #FEN -not on fluids -lytes wnl -soft diet #PPx -Hep #Dispo -Med surg London Linares MD PGY-2 IM Visit type - Emergency Visit Emergency Visit: No - New Patient This patient is new to me today: No - Critical Care Critical Care patient: No
--- NOTE | 2018-08-25 11:38 | PN ---
Teaching Attending Note Name of Resident: London Linares ATTENDING PHYSICIAN STATEMENT I saw and evaluated the patient. I reviewed the resident's note and discussed the case with the resident. I agree with the resident's findings and plan as documented with exceptions below. SUBJECTIVE: Patient seen and examined. Sleeping but arousable. Still with some abdominal pain and ongoing right foot pain. OBJECTIVE: Vital Signs Period Temp Pulse Resp BP Sys/Reyes Pulse Ox Last 24 Hr 98.3 F-98.9 F 72-83 18-20 117-156/51-89 94 Intake & Output 08/22/18 08/23/18 08/24/18 08/25/18 23:59 23:59 23:59 23:59 Intake Total 8775 832 0836 100 Output Total 50 310 340 Balance 1066 -10 1058 100 General: sleeping but arousable, no acute distress Abdomen:Soft, RUQ and epigastric tenderness on palpation, no voluntary or involuntary guarding or rigidity, positive bowel sounds Extremities: right toes gangrene with some progression and demarcation Active Medications Amlodipine Besylate (Norvasc -) 10 mg PO DAILY [facility] Last Admin: 08/25/18 10:58 Dose: 10 mg Atorvastatin Calcium (Lipitor -) 40 mg PO HS [facility] Last Admin: 08/24/18 22:47 Dose: 40 mg Clopidogrel Bisulfate (Plavix -) 75 mg PO DAILY [facility] Last Admin: 08/25/18 10:58 Dose: 75 mg Docusate Sodium (Colace -) 100 mg PO BID [facility] Last Admin: 08/25/18 11:00 Dose: Not Given Heparin Sodium (Porcine) (Heparin -) 1,000 unit IVPUSH PRN PRN PRN Reason: Heparin Heparin Sodium (Porcine) (Heparin -) 5,000 unit IVPUSH PRN PRN PRN Reason: Heparin Last Admin: 08/23/18 23:28 Dose: 5,000 unit Hydrochlorothiazide (Hctz -) 50 mg PO DAILY [facility] Last Admin: 08/25/18 10:58 Dose: 50 mg Levofloxacin (Levaquin 500 Mg Premixed Ivpb -) 500 mg in 100 mls @ 100 mls/hr IVPB DAILY [facility]; Protocol Last Admin: 08/24/18 11:56 Dose: 100 mls/hr Metronidazole (Flagyl 500mg Premixed Ivpb -) 500 mg in 100 mls @ 100 mls/hr IVPB Q8H-IV [facility] Last Admin: 08/25/18 10:58 Dose: 100 mls/hr Heparin Sodium (Porcine) 25, (000 unit/ Sodium Chloride) 500 mls @ 16 mls/hr IV TITR [facility]; Protocol Last Admin: 08/24/18 20:25 Dose: 950 unit/hr, 19 mls/hr Insulin Aspart (Novolog Vial Sliding Scale -) 1 vial SQ Q6H [facility]; Protocol Last Admin: 08/25/18 06:22 Dose: Not Given Insulin Detemir (Levemir Vial) 5 units SQ HS [facility] Last Admin: 08/24/18 22:47 Dose: 5 units Losartan Potassium (Cozaar -) 100 mg PO DAILY [facility] Last Admin: 08/25/18 11:12 Dose: 100 mg Oxycodone HCl (Roxicodone -) 5 mg PO Q4H PRN PRN Reason: PAIN LEVEL 7 - 10 Last Admin: 08/25/18 01:01 Dose: 5 mg Polyethylene Glycol (Miralax (For Daily Use) -) 17 gm PO BID [facility] Last Admin: 08/25/18 11:00 Dose: Not Given Senna (Senna -) 1 tab PO BID [facility] Last Admin: 08/25/18 11:00 Dose: Not Given Laboratory Results - last 24 hr 08/24/18 08/24/18 08/24/18 11:50 17:39 22:30 RBC Hgb Hct MCV MCH MCHC RDW Absolute Neuts (auto) Neutrophils % Lymphocytes % Nucleated RBC % PTT (Actin FS) Sodium Potassium Chloride Carbon Dioxide Anion Gap BUN Creatinine Creat Clearance w eGFR POC Glucometer 288 220 Random Glucose Calcium Total Bilirubin AST ALT Alkaline Phosphatase Total Protein Albumin Stool Occult Blood Negative 08/24/18 08/25/18 08/25/18 22:33 06:20 08:00 RBC Hgb Hct MCV MCH MCHC RDW Absolute Neuts (auto) Neutrophils % Lymphocytes % Nucleated RBC % PTT (Actin FS) 59.8 H Sodium Potassium Chloride Carbon Dioxide Anion Gap BUN Creatinine Creat Clearance w eGFR POC Glucometer 128 148 Random Glucose Calcium Total Bilirubin AST ALT Alkaline Phosphatase Total Protein Albumin Stool Occult Blood 08/25/18 08/25/18 08:30 09:00 RBC 3.33 L Hgb 9.2 L Hct 27.3 L MCV 81.9 MCH 27.7 MCHC 33.8 RDW 15.8 H Absolute Neuts (auto) 7.8 Neutrophils % No Result Required. Lymphocytes % No Result Required. Nucleated RBC % 0 PTT (Actin FS) Sodium 136 Potassium 3.6 Chloride 96 L Carbon Dioxide 29 Anion Gap 10 BUN 14 Creatinine 0.7 Creat Clearance w eGFR > 60 POC Glucometer Random Glucose 159 H Calcium 8.3 L Total Bilirubin 0.3 AST 25 ALT 14 Alkaline Phosphatase 73 Total Protein 6.2 L Albumin 2.0 L Stool Occult Blood Microbiology 08/22/18 15:45 Cholecystectomy Fluid Gram Stain - Final 08/22/18 15:45 Cholecystectomy Fluid Body Fluid Culture - Final NO GROWTH OF AEROBIC ORGANISMS AFTER 48 HOURS INCUBATION 08/22/18 15:45 Cholecystectomy Fluid Anaerobic Culture - Final NO ANAEROBES WERE ISOLATED 08/17/18 12:10 Blood - Peripheral Venous Blood Culture - Final NO GROWTH AFTER 5 DAYS INCUBATION 08/17/18 11:50 Blood - Peripheral Venous Blood Culture - Final NO GROWTH AFTER 5 DAYS INCUBATION 08/07/18 14:55 Blood - Peripheral Venous Blood Culture - Final NO GROWTH AFTER 5 DAYS INCUBATION 08/07/18 13:15 Blood - Peripheral Venous Blood Culture - Final NO GROWTH AFTER 5 DAYS INCUBATION 08/07/18 14:06 Urine - Urine Clean Catch Urine Culture - Final Lactobacillus Species ASSESSMENT AND PLAN: 83 year old woman with a history of type 2 DM, HTN admitted for Right foot ischemia and found to have HTN urgency on presentation, course complicated by acute cholecystitis s/p cholecystostomy tube placement. 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 agreeble to surgery, to discuss with Dr. Yusuf. FOllow up with podiatry, anticipate surgery next week. S/p Right cholecystostomy tube placement 08/22 Continue plavix/heparin drip now given ongoing limb ischemia. ID/Surgery input appreciated. levaquin/flagyl. Continue statin. Hematology input noted. Platelet count to be sent in blue tube. Bowel regimen. s/p venofer. Levemir, ISS, titrate as needed. Hold oral agents. Dispo pending resolution of medical concerns. Plan discussed with patient.
[2018-08-25 13:42] LABS: PLATELET ESTIMATE ADEQUATE
--- NOTE | 2018-08-25 13:54 | PN ---
Progress Note (short form) - Note Progress Note: FUV right foot. Daughter Carole Bhatti present. Had come in to sign consent again for TMA. I had spoken with daughter Meagan Zaldivar yesterday 2 times and she told me they now once again agree to allow TMA to happen vs bka vs do nothing. vss, Tmax 98.9 +gangarene right foot toes 1,3,4,5, +pvd, elevated wbc=10.4 gangarene right foot pvd poorly controlled diabetes Discussed at length with her healthcare proxy Carole Bhatti at length the procedure and that there were no guarantees as to healing and longevity of procedure due to the multiple comorbidities that exist and the patiens history of vascular disease. Her main concern was once again not having to go back a second time to revise the TMA. I once again advised her that there was no guarantee as to her healing and there is always a possibility of revision. I even explained that she might want to have a bka and to discuss with dr. dietz. There were no guarantees for either procedure but do to better perfusion proximally the chances would be better that nothing else might be needed, if that was there goal. After a long discussion she agreed and signed consent for debridement of bone and soft tissue and trans-metatarsal amputation right foot. About 1hr later the other daughter Meagan Zaldivar called me on my cell on speaker phone with Carole Bhatti present asking about the same thing and possible further intervention. She said her brother who is a physician said there was a protocol in place for these procedures and couldn't we predict or do more testing to confirm amputation level. I explained that we revise to adequate perfusion and that determines where we stop. I explained that besides her vascular history, her uncontrolled diabetes and her post op care would also determine outcome. They once again seemed reluctant at which point I did offer her the option of discussing with Dr. Dietz a BKA. They once again agreed with TMA at this time. It seems at this point they fully once again understand all risks benefits and alternatives and for now have consented to the proposed TMA and debridement. I did re-emphasize they could at any time refuse intervention up until time of surgery and if they have any further questions they could once again call me. For now the patient will be scheduled for Monday or Monday depending on OR time availability. Medicine managing her and will maximize for surgery. Will follow.
[2018-08-25] MEDS: HEPARIN - 25,000 UNIT in SODIUM CHLORIDE 495 ML IV SCH (14:15)
[2018-08-25] MEDS: ATORVASTATIN CA 40 MG TABLET (FP) PO SCH (22:00)
[2018-08-25] MEDS: INSULIN (LEVEMIR) 100 UNITS/ML UNITS SQ SCH (22:03)
[2018-08-26] MEDS: INSULIN SLIDING SCALE (NOVOLOG) 1 VIAL SQ SCH ×4 (06:35→23:00)
[2018-08-26] MEDS: oxyCODONE HCL 5 MG TABLET PO PRN ×2 (07:13→22:12)
[2018-08-26 08:40] LABS: BASO % 0.3 % (0-2.0); EOS % 0.8 % (0-4.5); HEMATOCRIT 29.7 % (32.4-45.2); HEMOGLOBIN 9.2 GM/dL (10.7-15.3); MCH 25.6 pg (25.7-33.7); MCHC 30.9 g/dl (32.0-36.0); MEAN CELL VOLUME 82.9 fl (80-96); MEAN PLT VOLUME 7.7 fl (7.5-11.1); MONO % 10.1 % (3.8-10.2); NEUT % 73.8 % (42.8-82.8); RBC 3.59 M/mm3 (3.60-5.2); RDW 15.8 % (11.6-15.6)
[2018-08-26 09:14] LABS: ALBUMIN 2.1 g/dl (3.4-5.0); ALK PHOS 73 U/L (45-117); ANION GAP 7 MMOL/L (8-16); BILIRUBIN,TOTAL 0.3 mg/dL (0.2-1); BLOOD UREA NITROGEN 13 mg/dL (7-18); CALCIUM 8.5 mg/dL (8.5-10.1); CHLORIDE 97 mmol/L (98-107); CO2 32 mmol/L (21-32); CREATININE 0.7 mg/dL (0.55-1.3); GLUCOSE,RANDOM 125 mg/dL (74-106); POTASSIUM 3.1 mmol/L (3.5-5.1); SGOT/AST 26 U/L (15-37); SGPT/ALT 14 U/L (13-61); SODIUM 136 mmol/L (136-145); TOT PROT 6.3 g/dl (6.4-8.2)
[2018-08-26 09:56] LABS: PLATELETS FROM BLUE TOP TUBE 306.9 K/MM3 (134-434)
[2018-08-26] MEDS: amLODIPine BESYLATE 10 MG TABLET (FP) PO SCH (11:04)
[2018-08-26] MEDS: HYDROCHLOROTHIAZIDE 25 MG TABLET (FP) PO SCH (11:04)
[2018-08-26] MEDS: CLOPIDOGREL BISULFATE 75 MG TABLET (FP) PO SCH (11:05)
[2018-08-26] MEDS: LOSARTAN POTASSIUM 50 MG TABLET (FP) PO SCH (11:05)
[2018-08-26] MEDS: SENNOSIDES 8.6MG TABLET (FP) PO SCH ×2 (11:06→22:10)
[2018-08-26] MEDS: DOCUSATE SODIUM 100 MG CAPSULE (FP) PO SCH ×2 (11:06→22:11)
[2018-08-26] MEDS ORDERED: INSULIN (NOVOLOG) ASPART 100 UNITS/ML 10ML VIAL ONE ×3 (11:48→18:06)
[2018-08-26] MEDS: HEPARIN - 25,000 UNIT in SODIUM CHLORIDE 495 ML IV SCH (14:15)
[2018-08-26] MEDS ORDERED: POTASSIUM CHLORIDE ORAL LIQUID 20 MEQ/15 ML PO ONE ×2 (14:26→20:00)
[2018-08-26] MEDS: POLYETHYLENE GLYCOL 3350 119 GM BTL PO SCH ×2 (14:36→22:15)
[2018-08-26] MEDS ORDERED: ACETAMINOPHEN 325 MG TABLET (FP) PO PRN (21:46)
[2018-08-26] MEDS: ATORVASTATIN CA 40 MG TABLET (FP) PO SCH (22:10)
[2018-08-26] MEDS: INSULIN (LEVEMIR) 100 UNITS/ML UNITS SQ SCH (22:25)
[2018-08-27] MEDS: ACETAMINOPHEN 325 MG TABLET (FP) PO PRN ×3 (02:45→19:55)
[2018-08-27] MEDS: oxyCODONE HCL 5 MG TABLET PO PRN ×3 (02:47→19:57)
[2018-08-27] MEDS: INSULIN SLIDING SCALE (NOVOLOG) 1 VIAL SQ SCH ×4 (06:21→23:28)
--- NOTE | 2018-08-27 07:39 | PN ---
Physical Exam: SUBJECTIVE: Patient seen and examined, no complaints, tolerating diet. OBJECTIVE: Vital Signs Period Temp Pulse Resp BP Sys/Reyes Pulse Ox Last 24 Hr 97.6 F-98.7 F 72-79 20-20 137-156/52-76 92-94 GENERAL: alert, awake, no acute distress chest: decreased effort, no rales or wheezing Abdomen:soft, mild RUQ tenderness, improved exam, cholecystostomy tube in place , no voluntary or involuntary guarding or rigidity Extrmeities: right toes gangrene unchanged from yesterday, with developing line of demarcation neck: soft, supple Laboratory Results - last 24 hr 08/26/18 08/26/18 08/26/18 07:20 07:20 07:20 WBC 10.0 RBC 3.59 L Hgb 9.2 L Hct 29.7 L MCV 82.9 MCH 25.6 L MCHC 30.9 L RDW 15.8 H Plt Count [employer] MPV 7.7 Absolute Neuts (auto) 7.4 Neutrophils % 73.8 Lymphocytes % 15.0 Monocytes % 10.1 Eosinophils % 0.8 Basophils % 0.3 Nucleated RBC % 0 Plt Clumps, Citrate 306.9 ESR PTT (Actin FS) 54.3 H Sodium 136 Potassium 3.1 L Chloride 97 L Carbon Dioxide 32 Anion Gap 7 L BUN 13 Creatinine 0.7 Creat Clearance w eGFR > 60 POC Glucometer Random Glucose 125 H Calcium 8.5 Total Bilirubin 0.3 AST 26 ALT 14 Alkaline Phosphatase 73 Total Protein 6.3 L Albumin 2.1 L 08/26/18 08/26/18 08/26/18 07:20 12:19 17:53 WBC RBC Hgb Hct MCV MCH MCHC RDW Plt Count MPV Absolute Neuts (auto) Neutrophils % Lymphocytes % Monocytes % Eosinophils % Basophils % Nucleated RBC % Plt Clumps, Citrate ESR 108 H PTT (Actin FS) Sodium Potassium Chloride Carbon Dioxide Anion Gap BUN Creatinine Creat Clearance w eGFR POC Glucometer 259 154 Random Glucose Calcium Total Bilirubin AST ALT Alkaline Phosphatase Total Protein Albumin 08/26/18 08/27/18 22:23 06:17 WBC RBC Hgb Hct MCV MCH MCHC RDW Plt Count MPV Absolute Neuts (auto) Neutrophils % Lymphocytes % Monocytes % Eosinophils % Basophils % Nucleated RBC % Plt Clumps, Citrate ESR PTT (Actin FS) Sodium Potassium Chloride Carbon Dioxide Anion Gap BUN Creatinine Creat Clearance w eGFR POC Glucometer 199 165 Random Glucose Calcium Total Bilirubin AST ALT Alkaline Phosphatase Total Protein Albumin Active Medications Generic Name Dose Route Start Last Admin Trade Name Freq PRN Reason Stop Dose Admin Acetaminophen 325 mg 08/26/18 22:14 08/27/18 02:45 Tylenol - PO 325 mg Q4H PRN Administration PAIN LEVEL 7 - 10 Amlodipine Besylate 10 mg 08/10/18 10:00 08/26/18 11:04 Norvasc - PO 10 mg DAILY FLYNN Administration Atorvastatin Calcium 40 mg 08/13/18 22:00 08/26/18 22:10 Lipitor - PO 40 mg HS FLYNN Administration Docusate Sodium 100 mg 08/09/18 22:00 08/26/18 22:11 Colace - PO 100 mg BID FLYNN Administration Heparin Sodium (Porcine) 1,000 unit 08/18/18 22:50 Heparin - IVPUSH PRN PRN Heparin Heparin Sodium (Porcine) 5,000 unit 08/18/18 22:50 08/23/18 23:28 Heparin - IVPUSH 5,000 unit PRN PRN Administration Heparin Hydrochlorothiazide 50 mg 08/17/18 10:00 08/26/18 11:04 Hctz - PO 50 mg DAILY FLYNN Administration Levofloxacin 500 mg in 100 mls @ 100 mls/hr 08/18/18 16:00 08/26/18 12:22 Levaquin 500 Mg Premixed Ivpb - IVPB 100 mls/hr DAILY FLYNN Administration Protocol Metronidazole 500 mg in 100 mls @ 100 mls/hr 08/18/18 16:20 08/27/18 01:58 Flagyl 500mg Premixed Ivpb - IVPB 100 mls/hr Q8H-IV FLYNN Administration Heparin Sodium (Porcine) 25, 500 mls @ 16 mls/hr 08/23/18 14:15 08/27/18 02: 06 000 unit/ Sodium Chloride IV 950 unit/hr TITR FLYNN 19 mls/hr Titration Protocol 800 UNIT/HR Insulin Aspart 1 vial 08/19/18 18:00 08/27/18 06:21 Novolog Vial Sliding Scale - SQ 2 units Q6H FLYNN Administration Protocol Insulin Detemir 5 units 08/17/18 22:00 08/26/18 22:25 Levemir Vial SQ 5 units HS FLYNN Administration Losartan Potassium 100 mg 08/17/18 10:00 08/26/18 11:05 Cozaar - PO 100 mg DAILY FLYNN Administration Oxycodone HCl 5 mg 08/20/18 17:24 08/27/18 02:47 Roxicodone - PO 5 mg Q4H PRN Administration PAIN LEVEL 7 - 10 Polyethylene Glycol 17 gm 08/14/18 10:00 08/26/18 22:15 Miralax (For Daily Use) - PO 17 grams BID FLYNN Administration Senna 1 tab 08/09/18 22:00 08/26/18 22:10 Senna - PO 1 tab BID FLYNN Administration ASSESSMENT/PLAN: 83 year old woman with a history of type 2 DM, HTN admitted for Right foot ischemia and found to have HTN urgency on presentation, course complicated by acute cholecystitis s/p cholecystostomy tube placement. -Right foot dry gangrene/PVD s/p angio/popliteal artery/SFA stent placement 08/08 , poor circulation to foot with single vessel run off -Acute cholecystitis -Pseudothrombocytopenia -HTN urgen -Constipation, opioid inducted -Normocytic anemia -IDDM, A1c 9.4 -Asymptomatic bacteruria Plan: Discussed with Dr. Bautista, surgery to Monday. Hold plavix now. Heparin to be held night before surgery. S/p Right cholecystostomy tube placement 08/22 Continue plavix/heparin drip now given ongoing limb ischemia. ID/Surgery input appreciated. levaquin/flagyl. Continue statin. Hematology input noted. Platelet count to be sent in blue tube. Bowel regimen. s/p venofer. Levemir, ISS, titrate as needed. Hold oral agents. Dispo pending resolution of medical concerns. Plan discussed with patient and nursing, all questions answered. Visit type - Emergency Visit Emergency Visit: Yes ED Registration Date: 08/07/18 Care time: The patient presented to the Emergency Department on the above date and was hospitalized for further evaluation of their emergent condition. - New Patient This patient is new to me today: No - Critical Care Critical Care patient: No - Discharge Referral Referred to [facility] Med P.C.: No
[2018-08-27 07:48] LABS: BASO % 0.4 % (0-2.0); EOS % 1.4 % (0-4.5); HEMATOCRIT 28.9 % (32.4-45.2); HEMOGLOBIN 9.1 GM/dL (10.7-15.3); LYMPH % 17.2 % (8-40); MCHC 31.5 g/dl (32.0-36.0); MEAN CELL VOLUME 82.5 fl (80-96); WHITE BLOOD COUNT 9.7 K/mm3 (4.0-10.0)
[2018-08-27 08:55] LABS: ANION GAP 7 MMOL/L (8-16); BLOOD UREA NITROGEN 15 mg/dL (7-18); CALCIUM 8.2 mg/dL (8.5-10.1); CHLORIDE 102 mmol/L (98-107); CO2 28 mmol/L (21-32); CREATININE 0.7 mg/dL (0.55-1.3); GLUCOSE,RANDOM 141 mg/dL (74-106); MAGNESIUM 1.6 mg/dL (1.8-2.4); POTASSIUM 4.4 mmol/L (3.5-5.1); SODIUM 137 mmol/L (136-145)
[2018-08-27] MEDS: LOSARTAN POTASSIUM 50 MG TABLET (FP) PO SCH (10:22)
[2018-08-27] MEDS: HYDROCHLOROTHIAZIDE 25 MG TABLET (FP) PO SCH (10:22)
[2018-08-27] MEDS: amLODIPine BESYLATE 10 MG TABLET (FP) PO SCH (10:22)
[2018-08-27] MEDS: DOCUSATE SODIUM 100 MG CAPSULE (FP) PO SCH ×2 (10:22→21:53)
[2018-08-27] MEDS: SENNOSIDES 8.6MG TABLET (FP) PO SCH ×2 (10:22→21:53)
[2018-08-27] MEDS: POLYETHYLENE GLYCOL 3350 119 GM BTL PO SCH ×2 (10:25→21:54)
--- NOTE | 2018-08-27 10:49 | PN ---
Progress Note (short form) - Note Progress Note: Vascular Surgery Pt seen and examined. Spoke to daughter Meagan on the phone. Explained to her that a right bka would be the most definitive operation for her mom. Family and pt are now agreeing to BKA. Will do bka on mon. Please intiiate medical and cardiology clearance. William Cates DO
[2018-08-27] MEDS ORDERED: INSULIN (NOVOLOG) ASPART 100 UNITS/ML 10ML VIAL ONE ×2 (12:00→18:25)
--- NOTE | 2018-08-27 12:47 | PN ---
Progress Note (short form) - Note Progress Note: alert s/p IR drainage of gallbladder Vital Signs Period Temp Pulse Resp BP Sys/Reyes Pulse Ox Last 24 Hr 98.0 F-98.7 F 74-79 20-20 137-156/52-76 94 cor-rrr lungs clear abd still some RUQ discomfort RUQ drain with clear bile ext no edema +dry gangrene Right foot CBC, BMP 08/27/18 07:30 08/27/18 07:30 Microbiology 08/22/18 15:45 Cholecystectomy Fluid Gram Stain - Final 08/22/18 15:45 Cholecystectomy Fluid Body Fluid Culture - Final NO GROWTH OF AEROBIC ORGANISMS AFTER 48 HOURS INCUBATION 08/22/18 15:45 Cholecystectomy Fluid Anaerobic Culture - Final NO ANAEROBES WERE ISOLATED 08/17/18 12:10 Blood - Peripheral Venous Blood Culture - Final NO GROWTH AFTER 5 DAYS INCUBATION 08/17/18 11:50 Blood - Peripheral Venous Blood Culture - Final NO GROWTH AFTER 5 DAYS INCUBATION 08/07/18 14:55 Blood - Peripheral Venous Blood Culture - Final NO GROWTH AFTER 5 DAYS INCUBATION 08/07/18 13:15 Blood - Peripheral Venous Blood Culture - Final NO GROWTH AFTER 5 DAYS INCUBATION 08/07/18 14:06 Urine - Urine Clean Catch Urine Culture - Final Lactobacillus Species a/p cholycystitis continue levaquin and flagyl s/p IR drainage 08/22 suspect cultures negative due to prior antiiboitics gangrene RLE unchanged-for BKA in am pen allergy Problem List - Problems (1) Leukocytosis Code(s): D72.829 - ELEVATED WHITE BLOOD CELL COUNT, UNSPECIFIED (2) Lower limb ischemia Code(s): I99.8 - OTHER DISORDER OF CIRCULATORY SYSTEM
--- NOTE | 2018-08-27 13:58 | PN ---
Teaching Attending Note Name of Resident: London Pope ATTENDING PHYSICIAN STATEMENT I saw and evaluated the patient. I reviewed the resident's note and discussed the case with the resident. I agree with the resident's findings and plan as documented with exceptions below. SUBJECTIVE: Patient seen and examined. Abdominal pain better, no fevers, chills. Right foot pain/burning overall unchanged. OBJECTIVE: Vital Signs Period Temp Pulse Resp BP Sys/Reyes Pulse Ox Last 24 Hr 98.0 F-98.7 F 74-79 20-20 137-156/52-76 94 Intake & Output 08/24/18 08/25/18 08/26/18 08/27/18 23:59 23:59 23:59 23:59 Intake Total 1398 1328 1081 708 Output Total 340 80 190 Balance 1058 1248 891 708 General: sitting in bed in no acute distress Chest: decreased effort, no rales or wheezing Abdomen:soft, markedly improved RUQ tenderness, Right cholecystostomy tube with bilious drainage Extremities: right toes gangrene unchanged, dusky right foot Active Medications Acetaminophen (Tylenol -) 325 mg PO Q4H PRN PRN Reason: PAIN LEVEL 7 - 10 Last Admin: 08/27/18 12:03 Dose: 325 mg Amlodipine Besylate (Norvasc -) 10 mg PO DAILY [facility] Last Admin: 08/27/18 10:22 Dose: 10 mg Atorvastatin Calcium (Lipitor -) 40 mg PO HS [facility] Last Admin: 08/26/18 22:10 Dose: 40 mg Docusate Sodium (Colace -) 100 mg PO BID [facility] Last Admin: 08/27/18 10:22 Dose: 100 mg Heparin Sodium (Porcine) (Heparin -) 1,000 unit IVPUSH PRN PRN PRN Reason: Heparin Heparin Sodium (Porcine) (Heparin -) 5,000 unit IVPUSH PRN PRN PRN Reason: Heparin Last Admin: 08/23/18 23:28 Dose: 5,000 unit Hydrochlorothiazide (Hctz -) 50 mg PO DAILY [facility] Last Admin: 08/27/18 10:22 Dose: 50 mg Levofloxacin (Levaquin 500 Mg Premixed Ivpb -) 500 mg in 100 mls @ 100 mls/hr IVPB DAILY [facility]; Protocol Last Admin: 08/27/18 10:22 Dose: 100 mls/hr Metronidazole (Flagyl 500mg Premixed Ivpb -) 500 mg in 100 mls @ 100 mls/hr IVPB Q8H-IV FLYNN Last Admin: 08/27/18 10:20 Dose: 100 mls/hr Heparin Sodium (Porcine) 25, (000 unit/ Sodium Chloride) 500 mls @ 16 mls/hr IV TITR FLYNN; Protocol Stop: 08/29/18 12:00 Last Titration: 08/27/18 10:35 Dose: 950 unit/hr, 19 mls/hr Lactated Ringer's (Lactated Ringers Solution) 1,000 ml in 1,000 mls @ 75 mls/ hr IV ASDIR FLYNN Insulin Aspart (Novolog Vial Sliding Scale -) 1 vial SQ Q6H FLYNN; Protocol Last Admin: 08/27/18 12:01 Dose: 2 units Insulin Detemir (Levemir Vial) 5 units SQ HS FLYNN Last Admin: 08/26/18 22:25 Dose: 5 units Losartan Potassium (Cozaar -) 100 mg PO DAILY [facility] Last Admin: 08/27/18 10:22 Dose: 100 mg Oxycodone HCl (Roxicodone -) 5 mg PO Q4H PRN PRN Reason: PAIN LEVEL 7 - 10 Last Admin: 08/27/18 12:03 Dose: 5 mg Polyethylene Glycol (Miralax (For Daily Use) -) 17 gm PO BID FLYNN Last Admin: 08/27/18 10:25 Dose: 17 grams Senna (Senna -) 1 tab PO BID FLYNN Last Admin: 08/27/18 10:22 Dose: 1 tab Laboratory Results - last 24 hr 08/26/18 08/26/18 08/27/18 17:53 22:23 06:17 WBC RBC Hgb Hct MCV MCH MCHC RDW Plt Count Absolute Neuts (auto) Neutrophils % Lymphocytes % Monocytes % Eosinophils % Basophils % Nucleated RBC % PTT (Actin FS) Sodium Potassium Chloride Carbon Dioxide Anion Gap BUN Creatinine Creat Clearance w eGFR POC Glucometer 154 199 165 Random Glucose Calcium Phosphorus Magnesium 08/27/18 08/27/18 08/27/18 07:30 07:30 07:30 WBC 9.7 RBC 3.50 L Hgb 9.1 L Hct 28.9 L MCV 82.5 MCH 26.0 MCHC 31.5 L RDW 16.0 H Plt Count Absolute Neuts (auto) 6.9 Neutrophils % 71.0 Lymphocytes % 17.2 Monocytes % 10.0 Eosinophils % 1.4 Basophils % 0.4 Nucleated RBC % 0 PTT (Actin FS) 67.5 H Sodium 137 Potassium 4.4 Chloride 102 Carbon Dioxide 28 Anion Gap 7 L BUN 15 Creatinine 0.7 Creat Clearance w eGFR > 60 POC Glucometer Random Glucose 141 H Calcium 8.2 L Phosphorus 3.0 Magnesium 1.6 L 08/27/18 11:57 WBC RBC Hgb Hct MCV MCH MCHC RDW Plt Count Absolute Neuts (auto) Neutrophils % Lymphocytes % Monocytes % Eosinophils % Basophils % Nucleated RBC % PTT (Actin FS) Sodium Potassium Chloride Carbon Dioxide Anion Gap BUN Creatinine Creat Clearance w eGFR POC Glucometer 179 Random Glucose Calcium Phosphorus Magnesium Microbiology 08/22/18 15:45 Cholecystectomy Fluid Gram Stain - Final 08/22/18 15:45 Cholecystectomy Fluid Body Fluid Culture - Final NO GROWTH OF AEROBIC ORGANISMS AFTER 48 HOURS INCUBATION 08/22/18 15:45 Cholecystectomy Fluid Anaerobic Culture - Final NO ANAEROBES WERE ISOLATED 08/17/18 12:10 Blood - Peripheral Venous Blood Culture - Final NO GROWTH AFTER 5 DAYS INCUBATION 08/17/18 11:50 Blood - Peripheral Venous Blood Culture - Final NO GROWTH AFTER 5 DAYS INCUBATION 08/07/18 14:55 Blood - Peripheral Venous Blood Culture - Final NO GROWTH AFTER 5 DAYS INCUBATION 08/07/18 13:15 Blood - Peripheral Venous Blood Culture - Final NO GROWTH AFTER 5 DAYS INCUBATION 08/07/18 14:06 Urine - Urine Clean Catch Urine Culture - Final Lactobacillus Species ASSESSMENT AND PLAN: 83 year old woman with a history of type 2 DM, HTN admitted for Right foot ischemia and found to have HTN urgency on presentation, course complicated by acute cholecystitis s/p cholecystostomy tube placement. -Right foot dry gangrene/PVD s/p angio/popliteal artery/SFA stent placement 08/08 , poor circulation to foot with single vessel run off -Acute cholecystitis s/p cholecystostomy tube placement 08/22 -Pseudothrombocytopenia -HTN urgen -Constipation, opioid inducted -Normocytic anemia -IDDM, A1c 9.4 -Asymptomatic bacteruria Plan: Discussed with Dr. Yusuf, plan for Right BKA with Dr. Cates on Monday. Discussed with Dr. Cates, hold plavix for now. Heparin drip to held 08/29 noon. Right cholecystostomy tube with bilous drainage. Continue for now. Afebrile, leucocytosis resolved. ID/Surgery input appreciated. levaquin/flagyl. Continue statin. Hematology input noted. Platelet count to be sent in blue tube. Bowel regimen. s/p venofer. Levemir, ISS, titrate as needed. Hold oral agents. Dispo pending resolution of medical concerns. Plan discussed with patient and nursing, all questions answered.
[2018-08-27] MEDS: HEPARIN - 25,000 UNIT in SODIUM CHLORIDE 495 ML IV SCH (16:22)
--- NOTE | 2018-08-27 19:38 | PN ---
Physical Exam: SUBJECTIVE: Patient seen and examined at bedside. Endorses pain in her right foot. Scheduled for BKA Monday. OBJECTIVE: Vital Signs Period Temp Pulse Resp BP Sys/Reyes Pulse Ox Last 24 Hr 98.0 F-98.8 F 69-76 20-20 130-156/68-76 94-94 GENERAL: Awake Alert NAD HEAD: NC/AT EYES: EOMI No scleral icterus Conjunctiva not injected LUNGS: CTA B/L no wheezing rhonchi or rales HEART: RRR No MRG S1S2 ABDOMEN: Percutaneous cholecystostomy tube RUQ. Good Output EXTREMITIES: Right Toe gangrene, 3rd, 4th, 5th toes gangrene as well. Unchanged since prior exam Laboratory Results - last 24 hr 08/26/18 08/27/18 08/27/18 22:23 06:17 07:30 WBC RBC Hgb Hct MCV MCH MCHC RDW Plt Count Absolute Neuts (auto) Neutrophils % Lymphocytes % Monocytes % Eosinophils % Basophils % Nucleated RBC % PTT (Actin FS) 67.5 H Sodium Potassium Chloride Carbon Dioxide Anion Gap BUN Creatinine Creat Clearance w eGFR POC Glucometer 199 165 Random Glucose Calcium Phosphorus Magnesium 08/27/18 08/27/18 08/27/18 07:30 07:30 11:57 WBC 9.7 RBC 3.50 L Hgb 9.1 L Hct 28.9 L MCV 82.5 MCH 26.0 MCHC 31.5 L RDW 16.0 H Plt Count Absolute Neuts (auto) 6.9 Neutrophils % 71.0 Lymphocytes % 17.2 Monocytes % 10.0 Eosinophils % 1.4 Basophils % 0.4 Nucleated RBC % 0 PTT (Actin FS) Sodium 137 Potassium 4.4 Chloride 102 Carbon Dioxide 28 Anion Gap 7 L BUN 15 Creatinine 0.7 Creat Clearance w eGFR > 60 POC Glucometer 179 Random Glucose 141 H Calcium 8.2 L Phosphorus 3.0 Magnesium 1.6 L 08/27/18 16:48 WBC RBC Hgb Hct MCV MCH MCHC RDW Plt Count Absolute Neuts (auto) Neutrophils % Lymphocytes % Monocytes % Eosinophils % Basophils % Nucleated RBC % PTT (Actin FS) Sodium Potassium Chloride Carbon Dioxide Anion Gap BUN Creatinine Creat Clearance w eGFR POC Glucometer 250 Random Glucose Calcium Phosphorus Magnesium Active Medications Generic Name Dose Route Start Last Admin Trade Name Freq PRN Reason Stop Dose Admin Acetaminophen 325 mg 08/26/18 22:14 08/27/18 12:03 Tylenol - PO 325 mg Q4H PRN Administration PAIN LEVEL 7 - 10 Amlodipine Besylate 10 mg 08/10/18 10:00 08/27/18 10:22 Norvasc - PO 10 mg DAILY FLYNN Administration Atorvastatin Calcium 40 mg 08/13/18 22:00 08/26/18 22:10 Lipitor - PO 40 mg HS FLYNN Administration Docusate Sodium 100 mg 08/09/18 22:00 08/27/18 10:22 Colace - PO 100 mg BID FLYNN Administration Heparin Sodium (Porcine) 1,000 unit 08/18/18 22:50 Heparin - IVPUSH PRN PRN Heparin Heparin Sodium (Porcine) 5,000 unit 08/18/18 22:50 08/23/18 23:28 Heparin - IVPUSH 5,000 unit PRN PRN Administration Heparin Hydrochlorothiazide 50 mg 08/17/18 10:00 08/27/18 10:22 Hctz - PO 50 mg DAILY FLYNN Administration Levofloxacin 500 mg in 100 mls @ 100 mls/hr 08/18/18 16:00 08/27/18 10:22 Levaquin 500 Mg Premixed Ivpb - IVPB 100 mls/hr DAILY FLYNN Administration Protocol Metronidazole 500 mg in 100 mls @ 100 mls/hr 08/18/18 16:20 08/27/18 18:21 Flagyl 500mg Premixed Ivpb - IVPB 100 mls/hr Q8H-IV FLYNN Administration Heparin Sodium (Porcine) 25, 500 mls @ 16 mls/hr 08/23/18 14:15 08/27/18 16: 22 000 unit/ Sodium Chloride IV 08/29/18 12:00 Not Given TITR FLYNN Protocol 800 UNIT/HR Lactated Ringer's 1,000 ml in 1,000 mls @ 75 mls/hr 08/28/18 00:01 Lactated Ringers Solution IV ASDIR FLYNN Insulin Aspart 1 vial 08/19/18 18:00 08/27/18 18:21 Novolog Vial Sliding Scale - SQ 2 units Q6H FLYNN Administration Protocol Insulin Detemir 5 units 08/17/18 22:00 08/26/18 22:25 Levemir Vial SQ 5 units HS FLYNN Administration Losartan Potassium 100 mg 08/17/18 10:00 08/27/18 10:22 Cozaar - PO 100 mg DAILY FLYNN Administration Oxycodone HCl 5 mg 08/20/18 17:24 08/27/18 12:03 Roxicodone - PO 5 mg Q4H PRN Administration PAIN LEVEL 7 - 10 Polyethylene Glycol 17 gm 08/14/18 10:00 08/27/18 10:25 Miralax (For Daily Use) - PO 17 grams BID FLYNN Administration Senna 1 tab 08/09/18 22:00 08/27/18 10:22 Senna - PO 1 tab BID FLYNN Administration ASSESSMENT/PLAN: This is an 83 year old woman with a history of type 2 DM, HTN who presented to the ED with right foot pain. 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 -08/24/18 Pt has reconsidered surgical intervention. Dr Yusuf contacted and will speak to family. -BKA this Monday. Conversation earlier today between Vascular surgery and Pt/ Family. Agree for BKA. Hold plavix for now. # Cholecystitis s/p Perc Cholecystostomy tube insertion -Levaquin/Flagyl -S/P Percutaneous IR Guided Cholecystostomy w/ Dr Chase -ID On Board # HTN - Norvasc 10 mg -Losartan to 100 w/ HCTZ 12.5 combo #. Type 2 DM - Metformin, Januvia held - Continue Novolog sliding scale Ucx- + for lactobacilus -Asymptomatic will not treat #FEN No Fluids Monitor electrolytes Clear liquids DVT ppx: Heparin gtt- Will hold 4 hours before Surgery Monday Dispo: Med-surg Visit type - Emergency Visit Emergency Visit: Yes ED Registration Date: 08/07/18 Care time: The patient presented to the Emergency Department on the above date and was hospitalized for further evaluation of their emergent condition. - New Patient This patient is new to me today: No - Critical Care Critical Care patient: No - Discharge Referral Referred to [facility] Med P.C.: No
[2018-08-27] MEDS: ATORVASTATIN CA 40 MG TABLET (FP) PO SCH (21:53)
[2018-08-27] MEDS: INSULIN (LEVEMIR) 100 UNITS/ML UNITS SQ SCH (21:59)
[2018-08-28] MEDS ORDERED: LACTATED RINGERS SOLUTION 1,000 ML/1,000 ML INFUS.BAG IV SCH (00:01)
[2018-08-28] MEDS ORDERED: PT OWN MED DRAWER 7, Y5N ONE ×2 (03:37→16:46)
[2018-08-28] MEDS: INSULIN SLIDING SCALE (NOVOLOG) 1 VIAL SQ SCH ×3 (06:45→17:59)
[2018-08-28 07:05] LABS: HEMATOCRIT 30.9 % (32.4-45.2); HEMOGLOBIN 9.6 GM/dL (10.7-15.3); MCH 25.9 pg (25.7-33.7); MCHC 31.1 g/dl (32.0-36.0); MEAN CELL VOLUME 83.3 fl (80-96); MEAN PLT VOLUME 7.1 fl (7.5-11.1); PLATELET COUNT 187 K/MM3 (134-434); RBC 3.71 M/mm3 (3.60-5.2); RDW 16.1 % (11.6-15.6)
[2018-08-28 08:05] LABS: ALBUMIN 2.4 g/dl (3.4-5.0); ALK PHOS 72 U/L (45-117); ANION GAP 9 MMOL/L (8-16); BILIRUBIN,TOTAL 0.3 mg/dL (0.2-1); BLOOD UREA NITROGEN 14 mg/dL (7-18); CALCIUM 8.7 mg/dL (8.5-10.1); CHLORIDE 100 mmol/L (98-107); CO2 28 mmol/L (21-32); CREATININE 0.8 mg/dL (0.55-1.3); GLUCOSE,RANDOM 141 mg/dL (74-106); MAGNESIUM 1.6 mg/dL (1.8-2.4); PHOSPHOROUS 3.3 mg/dL (2.5-4.9); POTASSIUM 4.7 mmol/L (3.5-5.1); SGOT/AST 21 U/L (15-37); SGPT/ALT 14 U/L (13-61); SODIUM 137 mmol/L (136-145); TOT PROT 6.9 g/dl (6.4-8.2)
[2018-08-28] MEDS: SENNOSIDES 8.6MG TABLET (FP) PO SCH ×2 (10:49→21:21)
[2018-08-28] MEDS: amLODIPine BESYLATE 10 MG TABLET (FP) PO SCH (10:49)
[2018-08-28] MEDS: LOSARTAN POTASSIUM 50 MG TABLET (FP) PO SCH (10:49)
[2018-08-28] MEDS: DOCUSATE SODIUM 100 MG CAPSULE (FP) PO SCH ×2 (10:49→21:21)
[2018-08-28] MEDS: HYDROCHLOROTHIAZIDE 25 MG TABLET (FP) PO SCH (10:49)
[2018-08-28] MEDS: POLYETHYLENE GLYCOL 3350 119 GM BTL PO SCH ×2 (10:50→21:23)
--- NOTE | 2018-08-28 11:45 | SPA.PREOP ---
- PRE-OP NOTE Dx: Dry gangrene Planned Procedure: Right below the knee amputation Surgeon: William Cates DO Consent: Will be obtained after surgeon explains all risks, benefits and alternatives. Opportunity for questions. Last Vital Signs Temp Pulse Resp BP Pulse Ox 98.8 F 77 20 132/73 94 L 08/28/18 06:00 08/28/18 06:00 08/28/18 06:00 08/28/18 06:00 08/27/18 21:00 Lab Results WBC 11.0 K/mm3 (4.0-10.0) H 08/28/18 06:30 RBC 3.71 M/mm3 (3.60-5.2) 08/28/18 06:30 Hgb 9.6 GM/dL (10.7-15.3) L 08/28/18 06:30 Hct 30.9 % (32.4-45.2) L 08/28/18 06:30 MCV 83.3 fl (80-96) 08/28/18 06:30 MCHC 31.1 g/dl (32.0-36.0) L 08/28/18 06:30 RDW 16.1 % (11.6-15.6) H 08/28/18 06:30 Plt Count 187 K/MM3 (134-434) D 08/28/18 06:30 Sodium 137 mmol/L (136-145) 08/28/18 06:30 Potassium 4.7 mmol/L (3.5-5.1) 08/28/18 06:30 Chloride 100 mmol/L (98-107) 08/28/18 06:30 Carbon Dioxide 28 mmol/L (21-32) 08/28/18 06:30 Anion Gap 9 MMOL/L (8-16) 08/28/18 06:30 BUN 14 mg/dL (7-18) 08/28/18 06:30 Creatinine 0.8 mg/dL (0.55-1.3) 08/28/18 06:30 Random Glucose 141 mg/dL (74-106) H 08/28/18 06:30 Calcium 8.7 mg/dL (8.5-10.1) 08/28/18 06:30 Blood Type A POSITIVE 08/16/18 11:50 Antibody Screen Negative 08/16/18 11:50 INR 1.43 (0.83-1.09) H 08/23/18 21:30 - ASSESSMENT/PLAN 1. Make NPO after midnight except po meds 2. GI/DVT PPX 3. Medical optimization / clearance
--- NOTE | 2018-08-28 12:56 | PN ---
Physical Exam: SUBJECTIVE: Patient seen and examined at bedside. No acute events overnight. OBJECTIVE: Vital Signs Period Temp Pulse Resp BP Sys/Reyes Pulse Ox Last 24 Hr 98.1 F-98.8 F 73-77 18-20 130-150/68-73 94 GENERAL: NAD AAOx3 HEAD: NC/AT EYES: EOMI conjunctiva clear LUNGS: CTA b/l HEART: RRR No MRG S1S2 ABDOMEN: Cholecystostomy in place, intact. EXTREMITIES: Right large toe, 3rd 4th 5th toes gangrenous Laboratory Results - last 24 hr 08/27/18 08/27/18 08/28/18 16:48 21:58 06:30 WBC RBC Hgb Hct MCV MCH MCHC RDW Plt Count MPV PTT (Actin FS) 75.8 H Sodium Potassium Chloride Carbon Dioxide Anion Gap BUN Creatinine Creat Clearance w eGFR POC Glucometer 250 193 Random Glucose Calcium Phosphorus Magnesium Total Bilirubin AST ALT Alkaline Phosphatase Total Protein Albumin 08/28/18 08/28/18 08/28/18 06:30 06:30 06:44 WBC 11.0 H RBC 3.71 Hgb 9.6 L Hct 30.9 L MCV 83.3 MCH 25.9 MCHC 31.1 L RDW 16.1 H Plt Count 187 D MPV 7.1 L PTT (Actin FS) Sodium 137 Potassium 4.7 Chloride 100 Carbon Dioxide 28 Anion Gap 9 BUN 14 Creatinine 0.8 Creat Clearance w eGFR > 60 POC Glucometer 151 Random Glucose 141 H Calcium 8.7 Phosphorus 3.3 Magnesium 1.6 L Total Bilirubin 0.3 AST 21 ALT 14 Alkaline Phosphatase 72 Total Protein 6.9 Albumin 2.4 L 08/28/18 12:01 WBC RBC Hgb Hct MCV MCH MCHC RDW Plt Count MPV PTT (Actin FS) Sodium Potassium Chloride Carbon Dioxide Anion Gap BUN Creatinine Creat Clearance w eGFR POC Glucometer 175 Random Glucose Calcium Phosphorus Magnesium Total Bilirubin AST ALT Alkaline Phosphatase Total Protein Albumin Active Medications Generic Name Dose Route Start Last Admin Trade Name Freq PRN Reason Stop Dose Admin Acetaminophen 325 mg 08/26/18 22:14 08/27/18 19:55 Tylenol - PO 325 mg Q4H PRN Administration PAIN LEVEL 7 - 10 Amlodipine Besylate 10 mg 08/10/18 10:00 08/28/18 10:49 Norvasc - PO 10 mg DAILY FLYNN Administration Atorvastatin Calcium 40 mg 08/13/18 22:00 08/27/18 21:53 Lipitor - PO 40 mg HS FLYNN Administration Docusate Sodium 100 mg 08/09/18 22:00 08/28/18 10:49 Colace - PO 100 mg BID FLYNN Administration Heparin Sodium (Porcine) 1,000 unit 08/18/18 22:50 Heparin - IVPUSH PRN PRN Heparin Heparin Sodium (Porcine) 5,000 unit 08/18/18 22:50 08/23/18 23:28 Heparin - IVPUSH 5,000 unit PRN PRN Administration Heparin Hydrochlorothiazide 50 mg 08/17/18 10:00 08/28/18 10:49 Hctz - PO 50 mg DAILY FLYNN Administration Levofloxacin 500 mg in 100 mls @ 100 mls/hr 08/18/18 16:00 08/28/18 10:49 Levaquin 500 Mg Premixed Ivpb - IVPB 100 mls/hr DAILY FLYNN Administration Protocol Metronidazole 500 mg in 100 mls @ 100 mls/hr 08/18/18 16:20 08/28/18 10:49 Flagyl 500mg Premixed Ivpb - IVPB 100 mls/hr Q8H-IV FLYNN Administration Heparin Sodium (Porcine) 25, 500 mls @ 16 mls/hr 08/23/18 14:15 08/28/18 03: 52 000 unit/ Sodium Chloride IV 08/29/18 12:00 950 unit/hr TITR FLYNN 19 mls/hr Titration Protocol 800 UNIT/HR Lactated Ringer's 1,000 ml in 1,000 mls @ 75 mls/hr 08/28/18 00:01 08/28/18 02:15 Lactated Ringers Solution IV 75 mls/hr ASDIR FLYNN Administration Insulin Aspart 1 vial 08/19/18 18:00 08/28/18 12:17 Novolog Vial Sliding Scale - SQ 2 units Q6H FLYNN Administration Protocol Insulin Detemir 5 units 08/17/18 22:00 08/27/18 21:59 Levemir Vial SQ 5 units HS FLYNN Administration Losartan Potassium 100 mg 08/17/18 10:00 08/28/18 10:49 Cozaar - PO 100 mg DAILY FLYNN Administration Polyethylene Glycol 17 gm 08/14/18 10:00 08/28/18 10:50 Miralax (For Daily Use) - PO 17 grams BID FLYNN Administration Senna 1 tab 08/09/18 22:00 08/28/18 10:49 Senna - PO 1 tab BID FLYNN Administration ASSESSMENT/PLAN: This is an 83 year old woman with a history of type 2 DM, HTN who presented to the ED with right foot pain. 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 -08/24/18 Pt has reconsidered surgical intervention. Dr Yusuf contacted and will speak to family. -BKA tomorrow, Monday.Hold plavix for now. # Cholecystitis s/p perc Cholecystostomy tube insertion -Continue Levaquin/Flagyl -S/P Percutaneous IR Guided Cholecystostomy w/ Dr Chase -ID On Board # HTN - Norvasc 10 mg -Losartan to 100 w/ HCTZ 12.5 combo #. Type 2 DM - Metformin, Januvia held - Continue Novolog sliding scale Ucx- + for lactobacilus -Asymptomatic will not treat #FEN No Fluids Monitor electrolytes Clear liquids DVT ppx: Heparin gtt- Will hold 4 hours before Surgery tomorrow Dispo: Med-surg Visit type - Emergency Visit Emergency Visit: Yes ED Registration Date: 08/07/18 Care time: The patient presented to the Emergency Department on the above date and was hospitalized for further evaluation of their emergent condition. - New Patient This patient is new to me today: No - Critical Care Critical Care patient: No - Discharge Referral Referred to [facility] Med P.C.: No
--- NOTE | 2018-08-28 13:53 | PN ---
Teaching Attending Note Name of Resident: London Pope ATTENDING PHYSICIAN STATEMENT I saw and evaluated the patient. I reviewed the resident's note and discussed the case with the resident. I agree with the resident's findings and plan as documented. SUBJECTIVE:c/o foot pain but improved with pain medication. denies CP, SOB, fever, chills, N/V/C/D OBJECTIVE: Last Vital Signs Temp Pulse Resp BP Pulse Ox 98.5 F 73 18 146/69 94 L 08/28/18 11:00 08/28/18 11:00 08/28/18 11:08/28/18 11:08/27/18 21:00 General NAD Abdomen soft NT/ND +RUQ JAMEL drain Extremities dry gangrene of the 1st and 3rd-5th digits. with demarcation on the top of toes. no drainage noted. no warmth ASSESSMENT AND PLAN: 83 year old woman with a history of type 2 DM, HTN admitted for Right foot ischemia and found to have HTN urgency on presentation 1. R Foot ischemia- s/p angio with Popliteal artery and SFA sent placement 08/08. now agreeable for BKA. scheduled for 08/29. plavix held. on hep ggt, plavix, statin. pain controlled 2. Acute cholecystisis- s/p JAMEL drain 08/22. on flagyl/levaquin. tolerating diet. ID and surgery on board. 3. Pseudothrombocytopenia-stable. cont hep ggt. hematology on board 4. HTN urgency-controlled. cont current management. 5. constipation-likely opiate induced. +BM yesterday. cont stool softeners 6. Normocytic anemia- iron def anemia. s/p venofer. would hold oral supplementation in setting of constipation. no signs of bleeding. Hgb improved. monitor closely while on anticoagulation 7. DM- A1c 9.4. improved. cont levemir and iss. titrate as needed. hold oral agents. 8. +UCx- not symptomatic. will not treat 9. DVT ppx- hep ggt, will convert to NOAC once no more procedures are planned
--- NOTE | 2018-08-28 14:31 | PN ---
Progress Note (short form) - Note Progress Note: FUV right foot. Family has decided to not do TMA. They have opted for TMA. Pt does not seem to be in any distress at this time. +gangarene right foot, gangarene pvd Will follow till dc. scheduled for bka tomorrow. Daughter Meagan Zaldivar confirmed by text to me.
[2018-08-28] MEDS: HEPARIN - 25,000 UNIT in SODIUM CHLORIDE 495 ML IV SCH (15:00)
[2018-08-28] MEDS: ATORVASTATIN CA 40 MG TABLET (FP) PO SCH (21:21)
[2018-08-28] MEDS: INSULIN (LEVEMIR) 100 UNITS/ML UNITS SQ SCH (21:30)
[2018-08-29] MEDS: INSULIN SLIDING SCALE (NOVOLOG) 1 VIAL SQ SCH ×4 (00:50→17:12)
[2018-08-29] MEDS ORDERED: INSULIN (NOVOLOG) ASPART 100 UNITS/ML 10ML VIAL ONE ×2 (06:43→11:44)
[2018-08-29 08:11] LABS: HEMATOCRIT 27.5 % (32.4-45.2); HEMOGLOBIN 9.5 GM/dL (10.7-15.3); MCH 28.1 pg (25.7-33.7); MCHC 34.5 g/dl (32.0-36.0); MEAN CELL VOLUME 81.4 fl (80-96); MEAN PLT VOLUME 7.6 fl (7.5-11.1); PLATELET COUNT 301 K/MM3 (134-434); RBC 3.38 M/mm3 (3.60-5.2); RDW 16.3 % (11.6-15.6); WHITE BLOOD COUNT 7.7 K/mm3 (4.0-10.0)
[2018-08-29 09:21] LABS: ANION GAP 9 MMOL/L (8-16); BLOOD UREA NITROGEN 14 mg/dL (7-18); CALCIUM 8.2 mg/dL (8.5-10.1); CHLORIDE 102 mmol/L (98-107); CO2 26 mmol/L (21-32); CREATININE 0.7 mg/dL (0.55-1.3); GLUCOSE,RANDOM 132 mg/dL (74-106); MAGNESIUM 1.4 mg/dL (1.8-2.4); PHOSPHOROUS 3.1 mg/dL (2.5-4.9); POTASSIUM 3.8 mmol/L (3.5-5.1); SODIUM 137 mmol/L (136-145)
[2018-08-29] MEDS: amLODIPine BESYLATE 10 MG TABLET (FP) PO SCH (09:34)
[2018-08-29] MEDS: DOCUSATE SODIUM 100 MG CAPSULE (FP) PO SCH ×2 (09:34→21:27)
[2018-08-29] MEDS: POLYETHYLENE GLYCOL 3350 119 GM BTL PO SCH ×2 (09:34→21:35)
[2018-08-29] MEDS: LOSARTAN POTASSIUM 50 MG TABLET (FP) PO SCH (09:35)
[2018-08-29] MEDS: HYDROCHLOROTHIAZIDE 25 MG TABLET (FP) PO SCH (09:35)
[2018-08-29] MEDS: SENNOSIDES 8.6MG TABLET (FP) PO SCH ×2 (09:36→21:27)
--- NOTE | 2018-08-29 13:01 | PN ---
Teaching Attending Note Name of Resident: London oPpe ATTENDING PHYSICIAN STATEMENT I saw and evaluated the patient. I reviewed the resident's note and discussed the case with the resident. I agree with the resident's findings and plan as documented. SUBJECTIVE:asymptomatic. denies CP, SOB, fever, chills, N/V/C/D no complications with anesthesia in the past. OBJECTIVE: Last Vital Signs Temp Pulse Resp BP Pulse Ox 98.5 F 74 20 141/65 94 L 08/29/18 10:00 08/29/18 10:00 08/29/18 10:00 08/29/18 10:00 08/28/18 09:00 General NAD Abdomen soft NT/ND +RUQ JAMEL drain Extremities dry gangrene of the 1st and 3rd-5th digits. with demarcation on the top of toes. no drainage noted. no warmth ASSESSMENT AND PLAN: 83 year old woman with a history of type 2 DM, HTN admitted for Right foot ischemia and found to have HTN urgency on presentation 1. R Foot ischemia- s/p angio with Popliteal artery and SFA sent placement 08/08. pt is intermediate-high risk for intermediate risk procedure. METS >4. no known complications with anesthesia. hold hep ggt prior to surgery. holding plavix and will resume at surgeon discretion.pain controlled 2. Acute cholecystisis- s/p JAMEL drain 08/22. on flagyl/levaquin. tolerating diet. ID and surgery on board. 3. Pseudothrombocytopenia-stable. cont hep ggt. hematology on board 4. HTN urgency-controlled. cont current management. 5. constipation-likely opiate induced. resolved. cont stool softeners 6. Normocytic anemia- iron def anemia. s/p venofer. would hold oral supplementation in setting of constipation. no signs of bleeding. Hgb improved. monitor closely while on anticoagulation 7. DM- A1c 9.4. improved. cont levemir and iss. titrate as needed. hold oral agents. 8. +UCx- not symptomatic. will not treat 9. DVT ppx- hep ggt, will convert to NOAC once no more procedures are planned 10. will need MATEUS when medically optimized.
--- NOTE | 2018-08-29 13:01 | CON.CARD ---
Consult Consult Specialty:: Cardiology Reason for Consultation:: preop eval prior to R BKA - History of Present Illness History of Present Illness: Patient is a 83 y/o female with a history of DM and HTN who presents for right foot pain. She described the pain as a burning, its starts in her foot and moves up to her knee. She rates it as 8/10. It is worse with touch and when she is walking. She has not found that anything makes it better, she has been trying to use icy hot but with no relief. The pain has been worsening for the last three weeks. Patient denies any recent trauma On july 23 patient followed up with her spring assembler who cut her nails. Patient believes one of the nails was cut too short and that is when the pain began. On July 29 they went to the ED at [facility] in [place] for the pain. She had an Xray done and was told she had a fracture. She was given oxycodone, but only took one pill. Earlier today she saw her PCP who stated she needed to come to the Emergency room. Patient presented to [facility]. An ultrasound showed an extensive atherosclerotic plaque and abnormal flow in the right extremity. Determine patient needs a CTA so she was transferred to [place]. Patient reports he felt feverish over the weekend, but it resolves. She currently denies chest pain , SOB, nausea, headache, or blurry vision. 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 Patient is non compliant with her home medications. She is able to ambulate at home with a cane. - History Source History Provided By: Patient, Medical Record - Past Medical History Cardio/Vascular: Yes: HTN Gastrointestinal: Yes: GERD Endocrine: Yes: Diabetes Mellitus - Past Surgical History Past Surgical History: Yes: Additional Surgical History: tubal ligation - Alcohol/Substance Use Hx Alcohol Use: No - Smoking History Smoking history: Never smoked Have you smoked in the past 12 months: No Home Medications - Allergies Allergies/Adverse Reactions: Allergies Allergy/AdvReac Type Severity Reaction Status Date / Time Penicillins Allergy Verified 08/07/18 12:35 - Home Medications Home Medications: Ambulatory Orders Losartan Potassium [Cozaar -] 50 mg PO BID 08/07/18 Omeprazole Magnesium [Prilosec Otc] 20 mg PO DAILY 08/07/18 Oxybutynin Chloride [Oxybutynin Chloride ER] 5 mg PO DAILY 08/07/18 Sitagliptin Phos/Metformin HCl [Janumet 50-1,000 mg Tablet] 1 each PO BID Gabapentin [Neurontin] 1 cap PO BID 08/14/18 Ibuprofen 600 mg PO Q6H PRN 08/14/18 Insulin Glargine,Hum.rec.anlog [Lantus Solostar PEN (NF)] 10 units SQ HS Oxycodone HCl/Acetaminophen [Percocet 5-325 mg Tablet] 1 tab PO Q6H PRN Repaglinide 1 tab PO TID 08/14/18 Review of Systems - Review of Systems Constitutional: reports: No Symptoms Eyes: reports: No Symptoms HENT: reports: No Symptoms Neck: reports: No Symptoms Cardiovascular: reports: No Symptoms Gastrointestinal: reports: No Symptoms Genitourinary: reports: No Symptoms Breasts: reports: No Symptoms Reported Musculoskeletal: reports: No Symptoms Integumentary: reports: No Symptoms Neurological: reports: No Symptoms Endocrine: reports: No Symptoms Hematology/Lymphatic: reports: No Symptoms Psychiatric: reports: No Symptoms Vital Signs: Vital Signs Temperature 98.5 F 08/29/18 10:00 Pulse Rate 74 08/29/18 10:00 Respiratory Rate 20 08/29/18 10:00 Blood Pressure 141/65 08/29/18 10:00 O2 Sat by Pulse Oximetry (%) 94 L 08/28/18 09:00 Constitutional: Yes: Well Nourished, No Distress, Calm Eyes: Yes: WNL, Conjunctiva Clear, EOM Intact HENT: Yes: WNL, Atraumatic, Normocephalic Neck: Yes: WNL, Supple, Trachea Midline Respiratory: Yes: WNL, Regular, CTA Bilaterally Gastrointestinal: Yes: WNL, Normal Bowel Sounds Renal/: Yes: WNL Cardiovascular: Yes: WNL, Regular Rate and Rhythm Heart Sounds: Yes: S1, S2 Musculoskeletal: Yes: WNL Extremities: Yes: Other (r foot gangrene) Peripheral Pulses WNL: No Integumentary: Yes: WNL Neurological: Yes: WNL, Alert, Oriented ...Motor Strength: WNL Psychiatric: Yes: WNL, Alert, Oriented - Other Data Labs, Other Data: CBC, BMP 08/29/18 06:15 08/29/18 06:15 INR, PTT INR 1.43 (0.83-1.09) H 08/23/18 21:30 Imaging - Results Chest X-ray: Image Reviewed (no i/e) EKG: Image Reviewed (sr ?old ant septal PA) Problem List - Problems (1) Leukocytosis Code(s): D72.829 - ELEVATED WHITE BLOOD CELL COUNT, UNSPECIFIED (2) Lower limb ischemia Code(s): I99.8 - OTHER DISORDER OF CIRCULATORY SYSTEM Assessment/Plan 83 year old woman with a history of type 2 poorly controlled DM, HTN admitted for Right foot ischemia, acute cholecystisis- s/p JAMEL drain 08/22 R Foot ischemia- s/p angio with Popliteal artery and SFA sent placement 08/08. Unable to asses exercise tolerance. No prior cardiac workup available. ECHO nl ef tds cannot r/o wall motions abnormalities. EKG ? old ant septal PA Plan; repeat ekg start low dose BB eg Lopressor 12.5 mg BID if surgery could be postponed. If surgery represent an emerdgency no beta blockers should be initiated. would benefit from antiplatlets therapy. Unless surgery represents an emergency would recommend medical optimization and Lexiscan MIBI stress test for risk stratification.
--- NOTE | 2018-08-29 13:20 | ECHO ---
Name: CRISTI NASCIMENTO Exam:Adult Echocardiogram Study Date: 08/29/2018 09:51 AM Age: 83 yrs Reason For Study: SURGERY Height: 65 in Weight: 140 lb BSA: 1.7 m2 MMode/2D Measurements & Calculations IVSd: 1.1 cm Ao root diam: 2.5 cm LVIDd: 3.4 cm LA dimension: 2.4 cm LVIDs: 2.3 cm LVPWd: 0.92 cm EDV(Teich): 47.3 ml LAV (MOD-bp): 22.7 ml ESV(Teich): 18.7 ml Doppler Measurements & Calculations MV E max kareem: 66.9 cm/sec TR max kareem: 257.9 cm/sec MV A max kareem: 87.8 cm/sec TR max P.8 mmHg MV E/A: 0.76 MV dec time: 0.14 sec Med Peak E' Kareem: 6.0 cm/sec Med E/e': 11.2 Lat Peak E' Kareem: 6.3 cm/sec Lat E/e': 10.6 Procedure A two-dimensional transthoracic echocardiogram with color flow and Doppler was performed. The study w as technically difficult with many images being suboptimal in quality. Left Ventricle The left ventricular size, thickness and function are normal. The left ventricular ejection fraction is normal. E/A reversal consistent with but not diagnostic of poor LV compliance. Regional wall motion abnormalities cannot be excluded due to limited visualization. Right Ventricle The right ventricle is not well visualized. Atria Normal left and right atrial size and function. Mitral Valve There is mild mitral valve thickening. There is no mitral valve stenosis. There is mild mitral regurg itation. Tricuspid Valve There is mild tricuspid valve thickening. There is no tricuspid stenosis. There is moderate tricuspid regurgitation. Right ventricular systolic pressure is elevated at 30-40mmHg. Aortic Valve The aortic valve is not well visualized. No hemodynamically significant valvular aortic stenosis. No aortic regurgitation is present. Pulmonic Valve The pulmonic valve is not well visualized. Great Vessels The aortic root is normal size. Pericardium/Pleura There is no pericardial effusion. Interpretation Summary The left ventricular size, thickness and function are normal The left ventricular ejection fraction is normal. There is moderate tricuspid regurgitation. Right ventricular systolic pressure is elevated at 30-40mmHg. The study was technically difficult with many images being suboptimal in quality. Regional wall motion abnormalities cannot be excluded due to limited visualization. E/A reversal consistent with but not diagnostic of poor LV compliance The right ventricle is not well visualized. MD Loyd Whittington 08/29/2018 01:19 PM
--- NOTE | 2018-08-29 13:41 | EKG ---
Test Reason : Blood Pressure : / mmHG Vent. Rate : 073 BPM Atrial Rate : 073 BPM P-R Int : 212 ms QRS Dur : 086 ms QT Int : 392 ms P-R-T Axes : 046 -05 043 degrees QTc Int : 431 ms SINUS RHYTHM WITH 1ST DEGREE A-V BLOCK OTHERWISE NORMAL ECG WHEN COMPARED WITH ECG OF 07-AUG-2018 13:13, NO SIGNIFICANT CHANGE WAS FOUND Confirmed by MEMO ALMAGUER MD ([id number]) on 08/29/2018 1:41:10 PM Referred By: TRIPP HAMPTON DR Confirmed By:MEMO ALMAGUER MD
[2018-08-29] MEDS ORDERED: HEPARIN NA (PORCINE) 5,000 UNITS/ML 1ML VIAL IVPUSH PRN ×2 (13:54)
[2018-08-29] MEDS ORDERED: HEPARIN - 25,000 UNIT in SODIUM CHLORIDE 495 ML IV SCH (14:00)
--- NOTE | 2018-08-29 17:50 | PN ---
Physical Exam: SUBJECTIVE: Patient seen and examined at bedside. Was scheduled for BKA R today however was postponed due to medical clearance delay. OBJECTIVE: Vital Signs Period Temp Pulse Resp BP Sys/Reyes Pulse Ox Last 24 Hr 98.0 F-98.8 F 68-82 20-22 131-157/50-79 96 GENERAL: Awake Alert NAD HEAD: NC/AT EYES: EOMI conjunctiva clear LUNGS: CTA b/l HEART: No MRG S1S2 RRR ABDOMEN: Soft NON tender, No HSM, Cholecystostomy tube draining EXTREMITIES: Gangrene LArge toe R as well as 3rd 4th and 5th toes. No sensation present, mottled appearence, cool to touch, pulse absent Laboratory Results - last 24 hr 08/28/18 08/28/18 08/29/18 13:30 21:29 05:30 WBC RBC Hgb Hct MCV MCH MCHC RDW Plt Count MPV PTT (Actin FS) Sodium Potassium Chloride Carbon Dioxide Anion Gap BUN Creatinine Creat Clearance w eGFR POC Glucometer 183 157 Random Glucose Calcium Phosphorus Magnesium Blood Type A POSITIVE Antibody Screen Negative Crossmatch See Detail 08/29/18 08/29/18 08/29/18 06:15 06:15 06:15 WBC 7.7 RBC 3.38 L Hgb 9.5 L Hct 27.5 L MCV 81.4 MCH 28.1 MCHC 34.5 RDW 16.3 H Plt Count 301 D MPV 7.6 PTT (Actin FS) 70.0 H Sodium 137 Potassium 3.8 Chloride 102 Carbon Dioxide 26 Anion Gap 9 BUN 14 Creatinine 0.7 Creat Clearance w eGFR > 60 POC Glucometer Random Glucose 132 H Calcium 8.2 L Phosphorus 3.1 Magnesium 1.4 L Blood Type Antibody Screen Crossmatch 08/29/18 08/29/18 08/29/18 12:05 14:10 16:26 WBC RBC Hgb Hct MCV MCH MCHC RDW Plt Count MPV PTT (Actin FS) 31.8 Sodium Potassium Chloride Carbon Dioxide Anion Gap BUN Creatinine Creat Clearance w eGFR POC Glucometer 166 149 Random Glucose Calcium Phosphorus Magnesium Blood Type Antibody Screen Crossmatch Active Medications Generic Name Dose Route Start Last Admin Trade Name Freq PRN Reason Stop Dose Admin Acetaminophen 325 mg 08/26/18 22:14 08/27/18 19:55 Tylenol - PO 325 mg Q4H PRN Administration PAIN LEVEL 7 - 10 Amlodipine Besylate 10 mg 08/10/18 10:00 08/29/18 09:34 Norvasc - PO 10 mg DAILY FLYNN Administration Atorvastatin Calcium 40 mg 08/13/18 22:00 08/28/18 21:21 Lipitor - PO 40 mg HS FLYNN Administration Docusate Sodium 100 mg 08/09/18 22:00 08/29/18 09:34 Colace - PO 100 mg BID FLYNN Administration Heparin Sodium (Porcine) 1,000 unit 08/29/18 13:54 Heparin - IVPUSH PRN PRN Heparin Heparin Sodium (Porcine) 5,000 unit 08/29/18 13:54 08/29/18 16:17 Heparin - IVPUSH 5,000 unit PRN PRN Administration Heparin Hydrochlorothiazide 50 mg 08/17/18 10:00 08/29/18 09:35 Hctz - PO 50 mg DAILY FLYNN Administration Levofloxacin 500 mg in 100 mls @ 100 mls/hr 08/18/18 16:00 08/29/18 11:10 Levaquin 500 Mg Premixed Ivpb - IVPB 100 mls/hr DAILY FLYNN Administration Protocol Metronidazole 500 mg in 100 mls @ 100 mls/hr 08/18/18 16:20 08/29/18 09:34 Flagyl 500mg Premixed Ivpb - IVPB 100 mls/hr Q8H-IV FLYNN Administration Heparin Sodium (Porcine) 25, 500 mls @ 16 mls/hr 08/29/18 14:00 08/29/18 16: 17 000 unit/ Sodium Chloride IV 08/30/18 12:00 950 unit/hr TITR FLYNN 19 mls/hr Titration Protocol 800 UNIT/HR Insulin Aspart 1 vial 08/19/18 18:00 08/29/18 17:12 Novolog Vial Sliding Scale - SQ Not Given Q6H FLYNN Protocol Insulin Detemir 5 units 08/17/18 22:00 08/28/18 21:30 Levemir Vial SQ 5 units HS FLYNN Administration Losartan Potassium 100 mg 08/17/18 10:00 08/29/18 09:35 Cozaar - PO 100 mg DAILY FLYNN Administration Polyethylene Glycol 17 gm 08/14/18 10:00 08/29/18 09:34 Miralax (For Daily Use) - PO 17 grams BID FLYNN Administration Senna 1 tab 08/09/18 22:00 08/29/18 09:36 Senna - PO 1 tab BID FLYNN Administration ASSESSMENT/PLAN: This is an 83 year old woman with a history of type 2 DM, HTN who presented to the ED with right foot pain. 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 -08/24/18 Pt has reconsidered surgical intervention. Dr Yusuf contacted and will speak to family. -Cardiology on board. BKA postponed to later date as Cardiology requiring further testing. Resting part of stress done today. Remaining part to be done tomorrow. Per Cardiology: medical optimization and Lexiscan MIBI stress test for risk stratification. # Cholecystitis s/p perc Cholecystostomy tube insertion -Continue Levaquin/Flagyl -S/P Percutaneous IR Guided Cholecystostomy w/ Dr Chase -ID On Board # HTN - Norvasc 10 mg -Losartan to 100 w/ HCTZ 12.5 combo #. Type 2 DM - Metformin, Januvia held - Continue Novolog sliding scale Ucx- + for lactobacilus -Asymptomatic will not treat #FEN No Fluids Monitor electrolytes Clear liquids DVT ppx: Heparin gtt resumed. Surgery postponed Dispo: Med-surg Visit type - Emergency Visit Emergency Visit: Yes ED Registration Date: 08/07/18 Care time: The patient presented to the Emergency Department on the above date and was hospitalized for further evaluation of their emergent condition. - New Patient This patient is new to me today: No - Critical Care Critical Care patient: No - Discharge Referral Referred to [facility] Med P.C.: No
--- NOTE | 2018-08-29 18:40 | PN ---
Progress Note (short form) - Note Progress Note: FUV right foot. Patient upset case was cancelled. +gangarene right foot toes 1,3,4,5, dry gangarene pvd Apparently medical and cardiac clearance not completed at time of surgery. Will follow till dc.
[2018-08-29] MEDS: ATORVASTATIN CA 40 MG TABLET (FP) PO SCH (21:27)
[2018-08-29] MEDS: INSULIN (LEVEMIR) 100 UNITS/ML UNITS SQ SCH (21:29)
[2018-08-29] MEDS ORDERED: METOPROLOL TARTRATE 25 MG TABLET (FP) PO SCH (22:00)
[2018-08-29] MEDS: ACETAMINOPHEN 325 MG TABLET (FP) PO PRN (23:25)
[2018-08-30] MEDS: INSULIN SLIDING SCALE (NOVOLOG) 1 VIAL SQ SCH ×4 (00:30→17:35)
[2018-08-30] MEDS ORDERED: oxyCODONE HCL 5 MG TABLET PO ONE (02:24)
[2018-08-30] MEDS ORDERED: oxyCODONE HCL 5 MG TABLET PO PRN (08:30)
[2018-08-30 08:35] LABS: HEMATOCRIT 31.1 % (32.4-45.2); HEMOGLOBIN 9.8 GM/dL (10.7-15.3); MCH 26.3 pg (25.7-33.7); MCHC 31.7 g/dl (32.0-36.0); MEAN CELL VOLUME 82.9 fl (80-96); MEAN PLT VOLUME 7.4 fl (7.5-11.1); PLATELET COUNT 254 K/MM3 (134-434); RBC 3.75 M/mm3 (3.60-5.2); RDW 16.4 % (11.6-15.6); WHITE BLOOD COUNT 7.2 K/mm3 (4.0-10.0)
[2018-08-30] MEDS ORDERED: PT OWN MED DRAWER 7, Y5N ONE ×2 (08:57→21:30)
[2018-08-30 09:10] LABS: ALBUMIN 2.4 g/dl (3.4-5.0); ALK PHOS 65 U/L (45-117); ANION GAP 11 MMOL/L (8-16); BILIRUBIN,TOTAL 0.3 mg/dL (0.2-1); BLOOD UREA NITROGEN 13 mg/dL (7-18); CALCIUM 8.5 mg/dL (8.5-10.1); CHLORIDE 102 mmol/L (98-107); CO2 25 mmol/L (21-32); CREATININE 0.7 mg/dL (0.55-1.3); GLUCOSE,RANDOM 134 mg/dL (74-106); MAGNESIUM 1.5 mg/dL (1.8-2.4); PHOSPHOROUS 3.5 mg/dL (2.5-4.9); POTASSIUM 4.3 mmol/L (3.5-5.1); SGOT/AST 26 U/L (15-37); SGPT/ALT 17 U/L (13-61); SODIUM 137 mmol/L (136-145); TOT PROT 6.7 g/dl (6.4-8.2)
[2018-08-30] MEDS: LOSARTAN POTASSIUM 50 MG TABLET (FP) PO SCH (09:11)
[2018-08-30] MEDS: HYDROCHLOROTHIAZIDE 25 MG TABLET (FP) PO SCH (09:11)
[2018-08-30] MEDS: amLODIPine BESYLATE 10 MG TABLET (FP) PO SCH (09:11)
[2018-08-30] MEDS: ACETAMINOPHEN 325 MG TABLET (FP) PO PRN ×2 (09:12→15:37)
[2018-08-30] MEDS ORDERED: REGADENOSON 0.4 MG/5 ML PRE-FILLED SYRINGE IVPUSH ONE ×2 (09:15→10:12)
--- NOTE | 2018-08-30 09:59 | PN ---
Progress Note, Physician Chief Complaint: Pt c/o pain in the right foot. History of Present Illness: Ms Pruett is an 83 yo black woman who presents to the ER due to foot pain Pt has a h/o DM and HTN with poor medication compliance The patient has been complaining of intermittent right lower extremity pain since June. She was noted to have increasing right foot pain on July 29. She was seen in an outside hospital where x-ray revealed a fracture of her great toe ??? (patient tells me she had no associated trauma) She was started on oxycodone, which she has been taking for pain. Her pain has persistently worsened. Beginning about 4 days ago, patient's pain was so significant that she was unable to bear weight on the right foot. She denies fevers, chills to me. She does admit to increased swelling of the foot. In order to treat her pain, she has been applying icy hot, with minimal relief. Patient denies trauma of any kind. She was seen today by her primary care physician [place] the city who told her that her foot was gangrenous. She was accompanied by her daughter to this visit, and daughter opted to bring her to this hospital here rather than have her treated at a local hospital. Patient tells me she's had no prior vascular issues in the past. She denies any chest pain, or history of atrial fibrillation. She denies abdominal pain. She denies headache. - Current Medication List Current Medications: Active Medications Acetaminophen (Tylenol -) 325 mg PO Q4H PRN PRN Reason: PAIN LEVEL 7 - 10 Last Admin: 08/30/18 09:12 Dose: 325 mg Amlodipine Besylate (Norvasc -) 10 mg PO DAILY [facility] Last Admin: 08/30/18 09:11 Dose: 10 mg Atorvastatin Calcium (Lipitor -) 40 mg PO HS [facility] Last Admin: 08/29/18 21:27 Dose: 40 mg Docusate Sodium (Colace -) 100 mg PO BID [facility] Last Admin: 08/29/18 21:27 Dose: 100 mg Heparin Sodium (Porcine) (Heparin -) 1,000 unit IVPUSH PRN PRN PRN Reason: Heparin Heparin Sodium (Porcine) (Heparin -) 5,000 unit IVPUSH PRN PRN PRN Reason: Heparin Last Admin: 08/29/18 16:17 Dose: 5,000 unit Hydrochlorothiazide (Hctz -) 50 mg PO DAILY [facility] Last Admin: 08/30/18 09:11 Dose: 50 mg Levofloxacin (Levaquin 500 Mg Premixed Ivpb -) 500 mg in 100 mls @ 100 mls/hr IVPB DAILY [facility]; Protocol Last Admin: 08/29/18 11:10 Dose: 100 mls/hr Metronidazole (Flagyl 500mg Premixed Ivpb -) 500 mg in 100 mls @ 100 mls/hr IVPB Q8H-IV [facility] Last Admin: 08/30/18 09:11 Dose: 100 mls/hr Heparin Sodium (Porcine) 25, (000 unit/ Sodium Chloride) 500 mls @ 16 mls/hr IV TITR [facility]; Protocol Stop: 08/30/18 12:00 Last Titration: 08/30/18 00:30 Dose: 800 unit/hr, 16 mls/hr Insulin Aspart (Novolog Vial Sliding Scale -) 1 vial SQ Q6H [facility]; Protocol Last Admin: 08/30/18 06:08 Dose: Not Given Insulin Detemir (Levemir Vial) 5 units SQ HS [facility] Last Admin: 08/29/18 21:29 Dose: 5 units Losartan Potassium (Cozaar -) 100 mg PO DAILY [facility] Last Admin: 08/30/18 09:11 Dose: 100 mg Oxycodone HCl (Roxicodone -) 5 mg PO Q6H PRN PRN Reason: PAIN LEVEL 6-10 Last Admin: 08/30/18 09:11 Dose: 5 mg Polyethylene Glycol (Miralax (For Daily Use) -) 17 gm PO BID [facility] Last Admin: 08/29/18 21:35 Dose: Not Given Senna (Senna -) 1 tab PO BID [facility] Last Admin: 08/29/18 21:27 Dose: Not Given - Objective Vital Signs: Vital Signs Temperature 99.1 F 08/30/18 09:00 Pulse Rate 78 08/30/18 09:00 Respiratory Rate 19 08/30/18 09:00 Blood Pressure 152/78 08/30/18 09:00 O2 Sat by Pulse Oximetry (%) 97 08/29/18 21:00 Constitutional: Yes: Anxious Eyes: Yes: WNL HENT: Yes: WNL Cardiovascular: Yes: S1 (split), S2 Respiratory: Yes: WNL Gastrointestinal: Yes: Soft ...Rectal Exam: Yes: Deferred Genitourinary: No: Anuria Breast(s): Yes: WNL Musculoskeletal: Yes: Muscle Weakness Extremities: Yes: Cool Edema: No Peripheral Pulses WNL: No Peripheral Pulses: Right Dorsalis Pedis: 1+ Integumentary: Yes: Other (gangrene right big toe) Wound/Incision: Yes: Other Neurological: Yes: Alert, Weakness Psychiatric: Yes: Alert, Oriented Labs: CBC, BMP 08/30/18 07:00 08/30/18 07:00 INR, PTT INR 1.43 (0.83-1.09) H 08/23/18 21:30 Problem List - Problems (1) Gangrene of toe of right foot Assessment/Plan: For Lexiscan stress MIBI today. If no significant ischemia, will clear for gangrenous toe amputation. Code(s): I96 - GANGRENE, NOT ELSEWHERE CLASSIFIED (2) Hyperlipidemia Assessment/Plan: On atorvastatin; total cholesterol is <100 mg/dL. Code(s): E78.5 - HYPERLIPIDEMIA, UNSPECIFIED (3) HTN (hypertension) Assessment/Plan: on losartan, HCTZ, and amlodipine. Code(s): I10 - ESSENTIAL (PRIMARY) HYPERTENSION (4) Leukocytosis Code(s): D72.829 - ELEVATED WHITE BLOOD CELL COUNT, UNSPECIFIED (5) Diastolic CHF Assessment/Plan: ECHO: normal LVEF: abnormal diastolic compliance; mild-moderate TR. On losartan. F/u BUN/Cr, [id number], daily weight, Is and Os. Code(s): I50.30 - UNSPECIFIED DIASTOLIC (CONGESTIVE) HEART FAILURE
[2018-08-30] MEDS: SENNOSIDES 8.6MG TABLET (FP) PO SCH ×2 (12:15→22:21)
[2018-08-30] MEDS: POLYETHYLENE GLYCOL 3350 119 GM BTL PO SCH ×2 (12:15→22:24)
[2018-08-30] MEDS: DOCUSATE SODIUM 100 MG CAPSULE (FP) PO SCH ×2 (12:23→22:21)
--- NOTE | 2018-08-30 14:41 | PN ---
Teaching Attending Note Name of Resident: London Pope ATTENDING PHYSICIAN STATEMENT I saw and evaluated the patient. I reviewed the resident's note and discussed the case with the resident. I agree with the resident's findings and plan as documented. SUBJECTIVE:asymptomatic. denies Cp, SOB, fever, chills, N/V/C/D. states pain is contrlld with pain regimen OBJECTIVE: Last Vital Signs Temp Pulse Resp BP Pulse Ox 99.1 F 78 19 152/78 97 08/30/18 09:00 08/30/18 09:00 08/30/18 09:00 08/30/18 09:00 08/30/18 09:00 General NAD Abdomen soft NT/ND +RUQ JAMEL drain Extremities dry gangrene of the 1st and 3rd-5th digits. with demarcation on the top of toes. no drainage noted. no warmth ASSESSMENT AND PLAN: 83 year old woman with a history of type 2 DM, HTN admitted for Right foot ischemia and found to have HTN urgency on presentation 1. R Foot ischemia- s/p angio with Popliteal artery and SFA sent placement 08/08. plan for BKA tomorrow pending results of stress test today to risk stratify patient further. hep ggt. holding plavix and will resume at surgeon discretion.pain controlled 2. Acute cholecystisis- s/p JAMEL drain 08/22. on flagyl/levaquin. tolerating diet. ID and surgery on board. 3. Pseudothrombocytopenia-stable. cont hep ggt. hematology on board 4. HTN urgency-controlled. cont current management. 5. constipation-likely opiate induced. resolved. cont stool softeners 6. Normocytic anemia- iron def anemia. s/p venofer. would hold oral supplementation in setting of constipation. no signs of bleeding. Hgb improved. monitor closely while on anticoagulation 7. DM- A1c 9.4. improved. cont levemir and iss. titrate as needed. hold oral agents. 8. +UCx- not symptomatic. will not treat 9. DVT ppx- hep ggt 10. will need [facility] when medically optimized.
--- NOTE | 2018-08-30 14:51 | PN ---
Progress Note (short form) - Note Progress Note: alert s/p IR drainage of gallbladder no complaints Vital Signs Period Temp Pulse Resp BP Sys/Reyes Pulse Ox Last 24 Hr 98 F-99.1 F 76-84 19-22 123-152/50-78 97-97 cor-rrr lungs clear abd soft,nt +bile in RUQ drain ext dry gangrene of the right foot CBC, BMP 08/30/18 07:00 08/30/18 07:00 Microbiology 08/22/18 15:45 Cholecystectomy Fluid Gram Stain - Final 08/22/18 15:45 Cholecystectomy Fluid Body Fluid Culture - Final NO GROWTH OF AEROBIC ORGANISMS AFTER 48 HOURS INCUBATION 08/22/18 15:45 Cholecystectomy Fluid Anaerobic Culture - Final NO ANAEROBES WERE ISOLATED 08/17/18 12:10 Blood - Peripheral Venous Blood Culture - Final NO GROWTH AFTER 5 DAYS INCUBATION 08/17/18 11:50 Blood - Peripheral Venous Blood Culture - Final NO GROWTH AFTER 5 DAYS INCUBATION 08/07/18 14:55 Blood - Peripheral Venous Blood Culture - Final NO GROWTH AFTER 5 DAYS INCUBATION 08/07/18 13:15 Blood - Peripheral Venous Blood Culture - Final NO GROWTH AFTER 5 DAYS INCUBATION 08/07/18 14:06 Urine - Urine Clean Catch Urine Culture - Final Lactobacillus Species a/p cholycystitis s/p IR drainage 08/22 suspect cultures negative due to prior antiiboitics will d/c levaquin/flagyl gangrene RLE unchanged- d/w vascular surgery pen allergy please call back if needed Problem List - Problems (1) Leukocytosis Code(s): D72.829 - ELEVATED WHITE BLOOD CELL COUNT, UNSPECIFIED (2) Lower limb ischemia Code(s): I99.8 - OTHER DISORDER OF CIRCULATORY SYSTEM
[2018-08-30] MEDS: oxyCODONE HCL 5 MG TABLET PO PRN ×2 (15:36→22:31)
--- NOTE | 2018-08-30 17:13 | PN ---
Physical Exam: SUBJECTIVE: Patient seen and examined at bedside. C/o R foot pain. No acute events overnight. For BKA tomorrow. Cardiology has cleared patient. OBJECTIVE: Vital Signs Period Temp Pulse Resp BP Sys/Reyes Pulse Ox Last 24 Hr 97.9 F-99.1 F 76-84 19-22 123-152/50-78 97-97 GENERAL: NAD Awake Alert HEAD: NC/AT EYES: EOMI conjunctiva clear LUNGS: CTA b/l. DEc Breath sounds at bases HEART: No MRG S1S2 RRR ABDOMEN: Cholecystostomy tube draining NDNT EXTREMITIES: Gangrene R L Toe 3rd, 4th, 5th toes., Unchanged since yesterdays exam. Laboratory Results - last 24 hr 08/29/18 08/29/18 08/30/18 21:23 21:45 00:28 WBC RBC Hgb Hct MCV MCH MCHC RDW Plt Count MPV PTT (Actin FS) 106.2 H Sodium Potassium Chloride Carbon Dioxide Anion Gap BUN Creatinine Creat Clearance w eGFR POC Glucometer 204 173 Random Glucose Calcium Phosphorus Magnesium Total Bilirubin AST ALT Alkaline Phosphatase Total Protein Albumin 08/30/18 08/30/18 08/30/18 06:07 07:00 07:00 WBC 7.2 RBC 3.75 Hgb 9.8 L Hct 31.1 L MCV 82.9 MCH 26.3 MCHC 31.7 L RDW 16.4 H Plt Count 254 MPV 7.4 L PTT (Actin FS) Sodium 137 Potassium 4.3 Chloride 102 Carbon Dioxide 25 Anion Gap 11 BUN 13 Creatinine 0.7 Creat Clearance w eGFR > 60 POC Glucometer 151 Random Glucose 134 H Calcium 8.5 Phosphorus 3.5 Magnesium 1.5 L Total Bilirubin 0.3 AST 26 ALT 17 Alkaline Phosphatase 65 Total Protein 6.7 Albumin 2.4 L 08/30/18 08/30/18 08:00 12:19 WBC RBC Hgb Hct MCV MCH MCHC RDW Plt Count MPV PTT (Actin FS) 63.4 H Sodium Potassium Chloride Carbon Dioxide Anion Gap BUN Creatinine Creat Clearance w eGFR POC Glucometer 180 Random Glucose Calcium Phosphorus Magnesium Total Bilirubin AST ALT Alkaline Phosphatase Total Protein Albumin Active Medications Generic Name Dose Route Start Last Admin Trade Name Freq PRN Reason Stop Dose Admin Acetaminophen 325 mg 08/26/18 22:14 08/30/18 15:37 Tylenol - PO 325 mg Q4H PRN Administration PAIN LEVEL 7 - 10 Amlodipine Besylate 10 mg 08/10/18 10:00 08/30/18 09:11 Norvasc - PO 10 mg DAILY [facility] Administration Atorvastatin Calcium 40 mg 08/13/18 22:00 08/29/18 21:27 Lipitor - PO 40 mg HS [facility] Administration Docusate Sodium 100 mg 08/09/18 22:00 08/30/18 12:23 Colace - PO Not Given BID [facility] Heparin Sodium (Porcine) 1,000 unit 08/29/18 13:54 Heparin - IVPUSH PRN PRN Heparin Heparin Sodium (Porcine) 5,000 unit 08/29/18 13:54 08/29/18 16:17 Heparin - IVPUSH 5,000 unit PRN PRN Administration Heparin Hydrochlorothiazide 50 mg 08/17/18 10:00 08/30/18 09:11 Hctz - PO 50 mg DAILY [facility] Administration Insulin Aspart 1 vial 08/19/18 18:00 08/30/18 12:20 Novolog Vial Sliding Scale - SQ 2 units Q6H [facility] Administration Protocol Insulin Detemir 5 units 08/17/18 22:00 08/29/18 21:29 Levemir Vial SQ 5 units HS [facility] Administration Losartan Potassium 100 mg 08/17/18 10:00 08/30/18 09:11 Cozaar - PO 100 mg DAILY [facility] Administration Oxycodone HCl 5 mg 08/30/18 15:30 08/30/18 15:36 Roxicodone - PO 5 mg Q4H PRN Administration PAIN LEVEL 6-10 Polyethylene Glycol 17 gm 08/14/18 10:00 08/30/18 12:15 Miralax (For Daily Use) - PO Not Given BID [facility] Senna 1 tab 08/09/18 22:00 08/30/18 12:15 Senna - PO Not Given BID [facility] ASSESSMENT/PLAN: This is an 83 year old woman with a history of type 2 DM, HTN who presented to the ED with right foot pain. 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 -08/24/18 Pt has reconsidered surgical intervention. Dr Yusuf contacted and will speak to family. -Cardiology on board. BKA tomorrow. Cardiology, Dr Mcgrath on board. Pt now medically clear for surgery. Lexiscan MIBI stress test--> LVEF 68% -Spoke with Dr Adriana Cates. Pt to be NPO after midnight. Heparin discontinued permanantly as pt's R foot unsalvagable. # Cholecystitis s/p perc Cholecystostomy tube insertion -Levaquin/Flagyl discontinued. -S/P Percutaneous IR Guided Cholecystostomy w/ Dr Chase -ID On Board # HTN - Norvasc 10 mg -Losartan to 100 -HCTZ 50 mg po daily combo #. Type 2 DM - Metformin, Januvia held - Continue Novolog sliding scale Ucx- + for lactobacilus -Asymptomatic will not treat #FEN No Fluids Monitor electrolytes NPO after midnight. DVT ppx: Heparin gtt discontinued. Surgery tomorrow Dispo: Med-Surg Visit type - Emergency Visit Emergency Visit: Yes ED Registration Date: 08/07/18 Care time: The patient presented to the Emergency Department on the above date and was hospitalized for further evaluation of their emergent condition. - New Patient This patient is new to me today: No - Critical Care Critical Care patient: No - Discharge Referral Referred to [facility] Med P.C.: No
[2018-08-30] MEDS ORDERED: INSULIN (NOVOLOG) ASPART 100 UNITS/ML 10ML VIAL ONE (21:31)
[2018-08-30] MEDS: ATORVASTATIN CA 40 MG TABLET (FP) PO SCH (22:21)
[2018-08-30] MEDS: INSULIN (LEVEMIR) 100 UNITS/ML UNITS SQ SCH (22:27)
[2018-08-31] MEDS: INSULIN SLIDING SCALE (NOVOLOG) 1 VIAL SQ SCH ×5 (00:36→23:08)
[2018-08-31 08:16] LABS: HEMATOCRIT 31.8 % (32.4-45.2); HEMOGLOBIN 10.8 GM/dL (10.7-15.3); MCH 28.4 pg (25.7-33.7); MEAN CELL VOLUME 83.3 fl (80-96); MEAN PLT VOLUME 8.3 fl (7.5-11.1); PLATELET COUNT 288 K/MM3 (134-434); RBC 3.82 M/mm3 (3.60-5.2); RDW 16.9 % (11.6-15.6); WHITE BLOOD COUNT 6.5 K/mm3 (4.0-10.0)
[2018-08-31 08:48] LABS: ANION GAP 10 MMOL/L (8-16); BLOOD UREA NITROGEN 17 mg/dL (7-18); CALCIUM 9.1 mg/dL (8.5-10.1); CHLORIDE 101 mmol/L (98-107); CO2 26 mmol/L (21-32); CREATININE 0.9 mg/dL (0.55-1.3); GLUCOSE,RANDOM 123 mg/dL (74-106); MAGNESIUM 1.8 mg/dL (1.8-2.4); PHOSPHOROUS 4.8 mg/dL (2.5-4.9); POTASSIUM 5.8 mmol/L (3.5-5.1); SODIUM 136 mmol/L (136-145)
[2018-08-31] MEDS: ACETAMINOPHEN 325 MG TABLET (FP) PO PRN ×4 (09:11→22:39)
[2018-08-31] MEDS: oxyCODONE HCL 5 MG TABLET PO PRN ×3 (09:12→22:38)
--- NOTE | 2018-08-31 09:37 | PN ---
Progress Note (short form) - Note Progress Note: FUV right foot. Apparently now has cancelled dry gangarene right foot toes 1,3,4,5, wbc=6.5 dry gangarene pvd now going to custodial. will follow till dc.
[2018-08-31] MEDS: SENNOSIDES 8.6MG TABLET (FP) PO SCH ×2 (09:58→22:38)
[2018-08-31] MEDS: HYDROCHLOROTHIAZIDE 25 MG TABLET (FP) PO SCH (09:58)
[2018-08-31] MEDS: DOCUSATE SODIUM 100 MG CAPSULE (FP) PO SCH ×2 (09:59→22:38)
[2018-08-31] MEDS: LOSARTAN POTASSIUM 50 MG TABLET (FP) PO SCH (09:59)
[2018-08-31] MEDS: amLODIPine BESYLATE 10 MG TABLET (FP) PO SCH (09:59)
[2018-08-31] MEDS: POLYETHYLENE GLYCOL 3350 119 GM BTL PO SCH ×2 (10:21→22:40)
--- NOTE | 2018-08-31 12:03 | PN ---
Progress Note, Physician History of Present Illness: Patient is a 83 y/o female with a history of DM and HTN who presents for right foot pain. She described the pain as a burning, its starts in her foot and moves up to her knee. She rates it as 8/10. It is worse with touch and when she is walking. She has not found that anything makes it better, she has been trying to use icy hot but with no relief. The pain has been worsening for the last three weeks. Patient denies any recent trauma On july 23 patient followed up with her workers compensation consultant who cut her nails. Patient believes one of the nails was cut too short and that is when the pain began. On July 29 they went to the ED at [facility] in [place] for the pain. She had an Xray done and was told she had a fracture. She was given oxycodone, but only took one pill. Earlier today she saw her PCP who stated she needed to come to the Emergency room. Patient presented to [facility]. An ultrasound showed an extensive atherosclerotic plaque and abnormal flow in the right extremity. Determine patient needs a CTA so she was transferred to [place]. Patient reports he felt feverish over the weekend, but it resolves. She currently denies chest pain , SOB, nausea, headache, or blurry vision. 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 Patient is non compliant with her home medications. She is able to ambulate at home with a cane. - Current Medication List Current Medications: Active Medications Acetaminophen (Tylenol -) 325 mg PO Q4H PRN PRN Reason: PAIN LEVEL 7 - 10 Last Admin: 08/31/18 09:11 Dose: 325 mg Amlodipine Besylate (Norvasc -) 10 mg PO DAILY [facility] Last Admin: 08/31/18 09:59 Dose: 10 mg Atorvastatin Calcium (Lipitor -) 40 mg PO HS [facility] Last Admin: 08/30/18 22:21 Dose: 40 mg Docusate Sodium (Colace -) 100 mg PO BID [facility] Last Admin: 08/31/18 09:59 Dose: 100 mg Heparin Sodium (Porcine) (Heparin -) 1,000 unit IVPUSH PRN PRN PRN Reason: Heparin Heparin Sodium (Porcine) (Heparin -) 5,000 unit IVPUSH PRN PRN PRN Reason: Heparin Last Admin: 08/29/18 16:17 Dose: 5,000 unit Hydrochlorothiazide (Hctz -) 50 mg PO DAILY [facility] Last Admin: 08/31/18 09:58 Dose: 50 mg Insulin Aspart (Novolog Vial Sliding Scale -) 1 vial SQ Q6H [facility]; Protocol Last Admin: 08/31/18 07:56 Dose: Not Given Insulin Detemir (Levemir Vial) 5 units SQ HS [facility] Last Admin: 08/30/18 22:27 Dose: 5 units Losartan Potassium (Cozaar -) 100 mg PO DAILY [facility] Last Admin: 08/31/18 09:59 Dose: 100 mg Oxycodone HCl (Roxicodone -) 5 mg PO Q4H PRN PRN Reason: PAIN LEVEL 6-10 Last Admin: 08/31/18 09:12 Dose: 5 mg Polyethylene Glycol (Miralax (For Daily Use) -) 17 gm PO BID [facility] Last Admin: 08/30/18 22:24 Dose: 17 grams Senna (Senna -) 1 tab PO BID [facility] Last Admin: 08/31/18 09:58 Dose: 1 tab - Objective Vital Signs: Vital Signs Temperature 98.2 F 08/31/18 09:56 Pulse Rate 83 08/31/18 09:56 Respiratory Rate 19 08/31/18 09:56 Blood Pressure 148/69 08/31/18 09:56 O2 Sat by Pulse Oximetry (%) 97 08/30/18 21:00 Eyes: Yes: WNL, Conjunctiva Clear, EOM Intact HENT: Yes: WNL, Atraumatic, Normocephalic Neck: Yes: WNL, Supple, Trachea Midline Cardiovascular: Yes: WNL, Regular Rate and Rhythm Respiratory: Yes: WNL, Regular, CTA Bilaterally Gastrointestinal: Yes: WNL, Normal Bowel Sounds Genitourinary: Yes: WNL Musculoskeletal: Yes: WNL Extremities: Yes: Other (r toes gangrene) Edema: No Integumentary: Yes: WNL Neurological: Yes: WNL, Alert, Oriented ...Motor Strength: WNL Psychiatric: Yes: WNL Labs: CBC, BMP 08/31/18 06:55 08/31/18 06:55 INR, PTT INR 1.43 (0.83-1.09) H 08/23/18 21:30 Problem List - Problems (1) Leukocytosis Code(s): D72.829 - ELEVATED WHITE BLOOD CELL COUNT, UNSPECIFIED (2) Lower limb ischemia Code(s): I99.8 - OTHER DISORDER OF CIRCULATORY SYSTEM Assessment/Plan - Problems (1) Gangrene of toe of right foot Assessment/Plan: Lexiscan stress MIBI no ischemia, will clear for gangrenous toe amputation. Family refusing surgery. Code(s): I96 - GANGRENE, NOT ELSEWHERE CLASSIFIED (2) Hyperlipidemia Assessment/Plan: On atorvastatin; total cholesterol is <100 mg/dL. Code(s): E78.5 - HYPERLIPIDEMIA, UNSPECIFIED (3) HTN (hypertension) Assessment/Plan: on losartan, HCTZ, and amlodipine. Code(s): I10 - ESSENTIAL (PRIMARY) HYPERTENSION (4) Leukocytosis Code(s): D72.829 - ELEVATED WHITE BLOOD CELL COUNT, UNSPECIFIED (5) Diastolic CHF Assessment/Plan: ECHO: normal LVEF: abnormal diastolic compliance; mild-moderate TR. On losartan. F/u BUN/Cr, [id number], daily weight, Is and Os. Code(s): I50.30 - UNSPECIFIED DIASTOLIC (CONGESTIVE) HEART FAILURE
--- NOTE | 2018-08-31 15:37 | PN ---
Teaching Attending Note Name of Resident: London Pope ATTENDING PHYSICIAN STATEMENT I saw and evaluated the patient. I reviewed the resident's note and discussed the case with the resident. I agree with the resident's findings and plan as documented. SUBJECTIVE:asymptomatic. states pain is controlled with pain medications. denies Cp, SOB, fever, chills, N/V/C/D OBJECTIVE: Last Vital Signs Temp Pulse Resp BP Pulse Ox 98.2 F 83 19 148/69 97 08/31/18 09:56 08/31/18 09:56 08/31/18 09:56 08/31/18 09:56 08/31/18 09:00 General NAD Abdomen soft NT/ND +RUQ JAMEL drain Extremities dry gangrene of the 1st and 3rd-5th digits. with demarcation on the top of toes. no drainage noted. no warmth ASSESSMENT AND PLAN: 83 year old woman with a history of type 2 DM, HTN admitted for Right foot ischemia and found to have HTN urgency on presentation 1. R Foot ischemia- s/p angio with Popliteal artery and SFA sent placement 08/08. family now refusing BKA and wants to wait. are aware of risks nad benfits of performing surgery. spoke with surgeon in detail. will switch to NOAC, start plavix. on statin. will need to monitor leg closely as high risk of developing infection. pain controlled 2. Acute cholecystisis- s/p JAMEL drain 08/22. off abx. will f/u with surgeon as outpatient for drain removal. 3. Pseudothrombocytopenia-stable. will switch to NOAC. hematology on board 4. HTN urgency-controlled. cont current management. 5. constipation-likely opiate induced. resolved. cont stool softeners 6. Normocytic anemia- iron def anemia. s/p venofer. will start iron daily and monitor for regular BM. should have iron studies repeated in 3 months 7. DM- A1c 9.4. improved. cont levemir and iss. titrate as needed. hold oral agents on discharge 8. +UCx- not symptomatic. will not treat 9. DVT ppx- hep ggt switch to NAOC 10. will d/c to [facility] today. awaiting to see bed availability
[2018-08-31 16:19] VITALS: BMI 23.3
--- NOTE | 2018-08-31 20:05 | DS ---
Physical Exam: SUBJECTIVE: Patient seen and examined at bedside. No acute events overnight. C/ o R foot pain. OBJECTIVE: Vital Signs Period Temp Pulse Resp BP Sys/Reyes Pulse Ox Last 24 Hr 97.9 F-98.2 F 70-83 18-20 105-148/48-69 97-97 PHYSICAL EXAM GENERAL: NAD Awake Alert HEAD: NC/AT EYES: EOMI conjunctiva clear LUNGS: Dec Breath sounds at bases HEART: No MRG S1S2 RRR ABDOMEN: Cholecystostomy tube draining NDNT EXTREMITIES: R large toe gangrene, third, fourth and 5th toes gangrene as well. Fine demarcation appreciated between gangrene and normal skin coloration. LABS Laboratory Results - last 24 hr 08/30/18 08/30/18 08/31/18 22:22 23:48 06:08 WBC RBC Hgb Hct MCV MCH MCHC RDW Plt Count MPV PTT (Actin FS) Sodium Potassium Chloride Carbon Dioxide Anion Gap BUN Creatinine Creat Clearance w eGFR POC Glucometer 131 125 151 Random Glucose Calcium Phosphorus Magnesium 08/31/18 08/31/18 08/31/18 06:55 06:55 06:55 WBC 6.5 RBC 3.82 Hgb 10.8 Hct 31.8 L MCV 83.3 MCH 28.4 MCHC 34.0 RDW 16.9 H Plt Count 288 MPV 8.3 D PTT (Actin FS) 23.2 L Sodium 136 Potassium 5.8 H Chloride 101 Carbon Dioxide 26 Anion Gap 10 BUN 17 Creatinine 0.9 Creat Clearance w eGFR > 60 POC Glucometer Random Glucose 123 H Calcium 9.1 Phosphorus 4.8 Magnesium 1.8 08/31/18 08/31/18 12:33 18:16 WBC RBC Hgb Hct MCV MCH MCHC RDW Plt Count MPV PTT (Actin FS) Sodium Potassium Chloride Carbon Dioxide Anion Gap BUN Creatinine Creat Clearance w eGFR POC Glucometer 148 179 Random Glucose Calcium Phosphorus Magnesium HOSPITAL COURSE: Date of Admission:08/07/18 Pt admitted to [facility] due to gangrene of her right foot. Pt evaluated by podiatry as well as a Vascular Surgery. Angiogram revealed significantly decreased blood flow to right lower extremity, see report for details. Surgical intervention was recommend by podiatry and Vascular surgery, a BKA. Cardiology clearance was obtained. Pt underwent a lexiscan to evaluate her myocardial function. LVEF was found to be at 68% and she was cleared by cardiology to undergo surgical intervention if needed. Pt decided to not to pursue any surgical intervention at that time. Furthermore, pt also found to have cholecystitis on this admission which was revealed upon physical examination as well as imaging. Pt did want to want to pursue a cholecystectomy- Instead Cholecystostomy was performed. Date of Discharge: 08/31/18 Minutes to complete discharge: 35 Discharge Summary Reason For Visit: RIGHT FOOT PAIN Current Active Problems Diastolic CHF (Acute) Gangrene of toe of right foot (Acute) HTN (hypertension) (Acute) Hyperlipidemia (Acute) Leukocytosis (Acute) Lower limb ischemia (Acute) Condition: Fair - Instructions Diet, Activity, Other Instructions: You were admitted to [facility] due to gangrene of your right foot. You were evaluated by a smart energy specialist as well as a Vascular Surgeon. You underwent imaging studies which revealed significantly decreased blood flow to your right lower extremity. Surgical intervention was recommend by podiatry and Vascular surgery, a BKA (Below Knee Amputation). You have elected NOT to pursue any surgical intervention at this time. Risks of no surgical intervention were explained to you as well as your family. Your foot is gangrenous and is a nidus for infection These risks include increased chance of infection and . Furthermore, you were also found to have cholecystitis on this admission which was revealed upon physical examination as well as imaging. You did NOT want to pursue a cholecystectomy- a surgery where the surgeon removes the gallbladder. Instead, a less invasive procedure called a Cholecystostomy was performed. This is a tube that is inserted through your abdomen into your gallbladder. This tube will stay inside you upon discharge. It is imperative that you follow up with the General Surgeon, Dr Todd Andrade in 3 weeks to evaluate your gallbladder and cholecystostomy tube. If you experience fevers, fast heart rate, increased sweating, chest pain, shortness of breath, worsening on pain in your right foot, further gangrene spread in your right lower extremity, immediately call 911 and come to the Emergency Room. The following referrals have been printed for you and are in your discharge packet. It is imperative for you to see these physicians within 1 week. You primary Care physician. If you do not have a primary care physician, you may follow up at our Medical Clinic. A referral has been printed in your discharge papers. Dr Mendez . Dr Todd Andrade MD- Surgeon (for your Gall Bladder and Cholecystostomy tube ) in [address] William Cates MD- Vascular Surgeon (for your gangrenous right Foot) in 1 week MEDICATIONS: You will be sent to to a rehab facility. New changes: You were placed on Plavix and Eliquis (Anticoagulant). You oral Diabetes medications have been stopped. You will be sent to Rehab on Insulin as instructed in medication list. Please resume all of your other home medications that have been printed for you. Referrals: Bashir Mendez MD [Staff Physician] - William Mcgrath MD [Staff Physician] - William Cates MD [Staff Physician] - Wei Yusuf DPM [Staff Physician] - Todd Andrade MD [Staff Physician] - Disposition: TRANSFER ACUTE CARE/OTHER HOSP - Home Medications Comprehensive Discharge Medication List: Ambulatory Orders Amlodipine Besylate [Norvasc -] 10 mg PO DAILY tablet 08/31/18 Apixaban [Eliquis] 2.5 mg PO BID #30 tablet 08/31/18 Atorvastatin Ca [Lipitor] 40 mg PO HS tablet 08/31/18 Clopidogrel Bisulfate [Plavix] 75 mg PO DAILY #30 tablet 08/31/18 Docusate Sodium [Colace -] 100 mg PO BID capsule 08/31/18 Ferrous Sulfate 325 mg PO DAILY #30 tablet 08/31/18 Hydrochlorothiazide [Hctz -] 50 mg PO DAILY tablet 08/31/18 Insulin (Levemir) [Levemir Vial] 5 units SQ HS units 08/31/18 Insulin Sliding Scale [Novolog Vial Sliding Scale -] 1 vial SQ Q6H units Losartan Potassium [Cozaar -] 100 mg PO DAILY tablet 08/31/18 Metoprolol Tartrate [Lopressor -] 12.5 mg PO BID tablet 08/31/18 Polyethylene Glycol 3350 [Miralax 119 gm Btl -] 17 gm PO BID bottle 08/31/18 Sennosides [Senna -] 1 tab PO BID tablet 08/31/18 This patient is new to me today: No Emergency Visit: Yes ED Registration Date: 08/07/18 Care time: The patient presented to the Emergency Department on the above date and was hospitalized for further evaluation of their emergent condition. Critical Care patient: No - Discharge Referral Referred to [facility] Med P.C.: No
[2018-08-31] MEDS: ATORVASTATIN CA 40 MG TABLET (FP) PO SCH (22:38)
[2018-08-31] MEDS: INSULIN (LEVEMIR) 100 UNITS/ML UNITS SQ SCH (22:40)
[2018-09-01] MEDS: oxyCODONE HCL 5 MG TABLET PO PRN ×3 (05:51→22:43)
[2018-09-01] MEDS: ACETAMINOPHEN 325 MG TABLET (FP) PO PRN ×2 (05:52→10:37)
[2018-09-01] MEDS: INSULIN SLIDING SCALE (NOVOLOG) 1 VIAL SQ SCH ×3 (05:52→18:05)
[2018-09-01 08:11] LABS: HEMATOCRIT 31.2 % (32.4-45.2); HEMOGLOBIN 10.6 GM/dL (10.7-15.3); MCH 28.1 pg (25.7-33.7); MCHC 33.8 g/dl (32.0-36.0); MEAN CELL VOLUME 83.1 fl (80-96); RBC 3.76 M/mm3 (3.60-5.2); RDW 17.1 % (11.6-15.6); WHITE BLOOD COUNT 5.6 K/mm3 (4.0-10.0)
--- NOTE | 2018-09-01 09:56 | PN ---
Progress Note, Physician History of Present Illness: Patient is a 83 y/o female with a history of DM and HTN who presents for right foot pain. She described the pain as a burning, its starts in her foot and moves up to her knee. She rates it as 8/10. It is worse with touch and when she is walking. She has not found that anything makes it better, she has been trying to use icy hot but with no relief. The pain has been worsening for the last three weeks. Patient denies any recent trauma On july 23 patient followed up with her advanced manufacturing vice president who cut her nails. Patient believes one of the nails was cut too short and that is when the pain began. On July 29 they went to the ED at [facility] in [place] for the pain. She had an Xray done and was told she had a fracture. She was given oxycodone, but only took one pill. Earlier today she saw her PCP who stated she needed to come to the Emergency room. Patient presented to [facility]. An ultrasound showed an extensive atherosclerotic plaque and abnormal flow in the right extremity. Determine patient needs a CTA so she was transferred to [place]. Patient reports he felt feverish over the weekend, but it resolves. She currently denies chest pain , SOB, nausea, headache, or blurry vision. 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 Patient is non compliant with her home medications. She is able to ambulate at home with a cane. - Current Medication List Current Medications: Active Medications Acetaminophen (Tylenol -) 325 mg PO Q4H PRN PRN Reason: PAIN LEVEL 7 - 10 Last Admin: 09/01/18 05:52 Dose: 325 mg Amlodipine Besylate (Norvasc -) 10 mg PO DAILY [facility] Last Admin: 08/31/18 09:59 Dose: 10 mg Atorvastatin Calcium (Lipitor -) 40 mg PO HS [facility] Last Admin: 08/31/18 22:38 Dose: 40 mg Clopidogrel Bisulfate (Plavix -) 75 mg PO DAILY [facility] Docusate Sodium (Colace -) 100 mg PO BID [facility] Last Admin: 08/31/18 22:38 Dose: 100 mg Ferrous Sulfate (Feosol -) 325 mg PO DAILY [facility] Heparin Sodium (Porcine) (Heparin -) 1,000 unit IVPUSH PRN PRN PRN Reason: Heparin Heparin Sodium (Porcine) (Heparin -) 5,000 unit IVPUSH PRN PRN PRN Reason: Heparin Last Admin: 08/29/18 16:17 Dose: 5,000 unit Hydrochlorothiazide (Hctz -) 50 mg PO DAILY [facility] Last Admin: 08/31/18 09:58 Dose: 50 mg Insulin Aspart (Novolog Vial Sliding Scale -) 1 vial SQ Q6H [facility]; Protocol Last Admin: 09/01/18 05:52 Dose: Not Given Insulin Detemir (Levemir Vial) 5 units SQ HS [facility] Last Admin: 08/31/18 22:40 Dose: 5 units Losartan Potassium (Cozaar -) 100 mg PO DAILY [facility] Last Admin: 08/31/18 09:59 Dose: 100 mg Oxycodone HCl (Roxicodone -) 5 mg PO Q4H PRN PRN Reason: PAIN LEVEL 6-10 Last Admin: 09/01/18 05:51 Dose: 5 mg Polyethylene Glycol (Miralax (For Daily Use) -) 17 gm PO BID [facility] Last Admin: 08/31/18 22:40 Dose: 17 grams Senna (Senna -) 1 tab PO BID [facility] Last Admin: 08/31/18 22:38 Dose: 1 tab - Objective Vital Signs: Vital Signs Temperature 98.0 F 09/01/18 06:00 Pulse Rate 77 09/01/18 06:00 Respiratory Rate 20 09/01/18 06:00 Blood Pressure 138/64 09/01/18 06:00 O2 Sat by Pulse Oximetry (%) 96 08/31/18 21:00 Eyes: Yes: WNL, Conjunctiva Clear, EOM Intact HENT: Yes: WNL, Atraumatic, Normocephalic Neck: Yes: WNL, Supple, Trachea Midline Cardiovascular: Yes: WNL, Regular Rate and Rhythm Respiratory: Yes: WNL, Regular, CTA Bilaterally Gastrointestinal: Yes: WNL, Normal Bowel Sounds Genitourinary: Yes: WNL Musculoskeletal: Yes: WNL Extremities: Yes: Other (gangrene r foot) Edema: No Integumentary: Yes: WNL Neurological: Yes: WNL, Alert, Oriented ...Motor Strength: WNL Psychiatric: Yes: WNL Labs: CBC, BMP 09/01/18 06:30 08/31/18 06:55 INR, PTT INR 1.43 (0.83-1.09) H 08/23/18 21:30 Problem List - Problems (1) Leukocytosis Code(s): D72.829 - ELEVATED WHITE BLOOD CELL COUNT, UNSPECIFIED (2) Lower limb ischemia Code(s): I99.8 - OTHER DISORDER OF CIRCULATORY SYSTEM Assessment/Plan - Problems (1) Gangrene of toe of right foot Assessment/Plan: Lexiscan stress MIBI no ischemia, will clear for gangrenous toe amputation. Family refusing surgery. Code(s): I96 - GANGRENE, NOT ELSEWHERE CLASSIFIED (2) Hyperlipidemia Assessment/Plan: On atorvastatin; total cholesterol is <100 mg/dL. Code(s): E78.5 - HYPERLIPIDEMIA, UNSPECIFIED (3) HTN (hypertension) Assessment/Plan: on losartan, HCTZ, and amlodipine. Code(s): I10 - ESSENTIAL (PRIMARY) HYPERTENSION (4) Leukocytosis Code(s): D72.829 - ELEVATED WHITE BLOOD CELL COUNT, UNSPECIFIED (5) Diastolic CHF Assessment/Plan: ECHO: normal LVEF: abnormal diastolic compliance; mild-moderate TR. On losartan. F/u BUN/Cr, [id number], daily weight, Is and Os. Code(s): I50.30 - UNSPECIFIED DIASTOLIC (CONGESTIVE) HEART FAILURE
[2018-09-01] MEDS ORDERED: CLOPIDOGREL BISULFATE 75 MG TABLET (FP) PO SCH (10:00)
[2018-09-01] MEDS: FERROUS SO4 325 MG TABLET (FP) PO SCH (10:34)
[2018-09-01] MEDS: DOCUSATE SODIUM 100 MG CAPSULE (FP) PO SCH ×2 (10:34→22:42)
[2018-09-01] MEDS: LOSARTAN POTASSIUM 50 MG TABLET (FP) PO SCH (10:34)
[2018-09-01] MEDS: amLODIPine BESYLATE 10 MG TABLET (FP) PO SCH (10:34)
[2018-09-01] MEDS: HYDROCHLOROTHIAZIDE 25 MG TABLET (FP) PO SCH (10:34)
[2018-09-01] MEDS: SENNOSIDES 8.6MG TABLET (FP) PO SCH ×2 (10:34→22:43)
[2018-09-01] MEDS: POLYETHYLENE GLYCOL 3350 119 GM BTL PO SCH ×2 (10:37→22:45)
[2018-09-01] MEDS ORDERED: INSULIN (NOVOLOG) ASPART 100 UNITS/ML 10ML VIAL ONE ×2 (12:05→18:10)
--- NOTE | 2018-09-01 14:46 | PN ---
Progress Note (short form) - Note Progress Note: patient did not leave yesterday because now she is requesting amputation. currently asymptomatic. denies CP, SOB, fever, chills, N/V/C/D Current Medications Generic Name Dose Route Start Last Admin Trade Name Freq PRN Reason Stop Dose Admin Acetaminophen 325 mg 08/26/18 22:14 09/01/18 10:37 Tylenol - PO 325 mg Q4H PRN Administration PAIN LEVEL 7 - 10 Amlodipine Besylate 10 mg 08/10/18 10:00 09/01/18 10:34 Norvasc - PO 10 mg DAILY [facility] Administration Atorvastatin Calcium 40 mg 08/13/18 22:00 08/31/18 22:38 Lipitor - PO 40 mg HS [facility] Administration Docusate Sodium 100 mg 08/09/18 22:00 09/01/18 10:34 Colace - PO 100 mg BID [facility] Administration Enoxaparin Sodium 60 mg 09/01/18 22:00 Lovenox - SQ BID FLYNN Ferrous Sulfate 325 mg 09/01/18 10:00 09/01/18 10:34 Feosol - PO 325 mg DAILY [facility] Administration Hydrochlorothiazide 50 mg 08/17/18 10:00 09/01/18 10:34 Hctz - PO 50 mg DAILY [facility] Administration Insulin Aspart 1 vial 08/19/18 18:00 09/01/18 12:09 Novolog Vial Sliding Scale - SQ 4 units Q6H [facility] Administration Protocol Insulin Detemir 5 units 08/17/18 22:00 08/31/18 22:40 Levemir Vial SQ 5 units HS [facility] Administration Losartan Potassium 100 mg 08/17/18 10:00 09/01/18 10:34 Cozaar - PO 100 mg DAILY [facility] Administration Oxycodone HCl 5 mg 08/30/18 15:30 09/01/18 10:37 Roxicodone - PO 5 mg Q4H PRN Administration PAIN LEVEL 6-10 Polyethylene Glycol 17 gm 08/14/18 10:00 09/01/18 10:37 Miralax (For Daily Use) - PO 17 grams BID [facility] Administration Senna 1 tab 08/09/18 22:00 09/01/18 10:34 Senna - PO 1 tab BID [facility] Administration Last Vital Signs Temp Pulse Resp BP Pulse Ox 98.0 F 77 20 138/64 96 09/01/18 06:00 09/01/18 06:00 09/01/18 06:00 09/01/18 06:00 08/31/18 21:00 General NAD CV S1 S2 RRR no murmur/rub/gallop Lungs CTA B/L no wheezing/rales/rhonchi Abdomen soft NT/ND +RUQ JAMEL drain Extremities dry gangrene of the 1st and 3rd-5th digits. with demarcation on the top of toes. no drainage noted. no warmth ASSESSMENT AND PLAN: 83 year old woman with a history of type 2 DM, HTN admitted for Right foot ischemia and found to have HTN urgency on presentation 1. R Foot ischemia- s/p angio with Popliteal artery and SFA sent placement 08/08. yesterday family refused surgery and then last night prior to patient leaving she states she wants the surgery. this is 3rd time surgery has been cancelled and then re-scheduled due to family members changing mind. Spoke to patient with Meagan (daughter) over the phone at the same time as well as daughter, Carole, over the phone today and all 3 people stating they want to proceed with surgery. spoke with surgeon who will attempt to fit her into schedule on Monday. pain controlled 2. Acute cholecystisis- s/p JAMEL drain 08/22. off abx. will f/u with surgeon as outpatient for drain removal. 3. Pseudothrombocytopenia-stable. on full dose lovenox. hematology on board 4. HTN urgency-controlled. cont current management. 5. constipation-likely opiate induced. resolved. cont stool softeners 6. Normocytic anemia- iron def anemia. s/p venofer. will start iron daily and monitor for regular BM. should have iron studies repeated in 3 months 7. DM- A1c 9.4. improved. cont levemir and iss. titrate as needed. hold oral agents on discharge 8. +UCx- not symptomatic. will not treat 9. DVT ppx- full dose lovenox 10. d/c now cancelled as now desires surgery. anticipated Monday. will go to [facility] when medically cleared. Visit type - Emergency Visit Emergency Visit: Yes ED Registration Date: 08/07/18 Care time: The patient presented to the Emergency Department on the above date and was hospitalized for further evaluation of their emergent condition. - New Patient This patient is new to me today: No - Critical Care Critical Care patient: No - Discharge Referral Referred to [facility] Med P.C.: No
[2018-09-01] MEDS: ATORVASTATIN CA 40 MG TABLET (FP) PO SCH (22:42)
[2018-09-01] MEDS: INSULIN (LEVEMIR) 100 UNITS/ML UNITS SQ SCH (22:44)
[2018-09-01] MEDS: ENOXAPARIN NA (PORCINE) 60 MG/0.6 ML DISP.SYRIN SQ SCH (22:47)
[2018-09-02] MEDS: INSULIN SLIDING SCALE (NOVOLOG) 1 VIAL SQ SCH ×4 (00:18→17:22)
[2018-09-02] MEDS: ACETAMINOPHEN 325 MG TABLET (FP) PO PRN ×3 (06:49→16:50)
[2018-09-02] MEDS: oxyCODONE HCL 5 MG TABLET PO PRN ×4 (06:49→21:50)
[2018-09-02 08:32] LABS: HEMATOCRIT 32.5 % (32.4-45.2); HEMOGLOBIN 10.2 GM/dL (10.7-15.3); MCH 26.3 pg (25.7-33.7); MCHC 31.5 g/dl (32.0-36.0); MEAN CELL VOLUME 83.7 fl (80-96); MEAN PLT VOLUME 7.7 fl (7.5-11.1); RBC 3.89 M/mm3 (3.60-5.2); RDW 17.1 % (11.6-15.6); WHITE BLOOD COUNT 6.1 K/mm3 (4.0-10.0)
--- NOTE | 2018-09-02 10:01 | PN ---
Progress Note, Physician History of Present Illness: Patient is a 83 y/o female with a history of DM and HTN who presents for right foot pain. She described the pain as a burning, its starts in her foot and moves up to her knee. She rates it as 8/10. It is worse with touch and when she is walking. She has not found that anything makes it better, she has been trying to use icy hot but with no relief. The pain has been worsening for the last three weeks. Patient denies any recent trauma On july 23 patient followed up with her brine plant operator who cut her nails. Patient believes one of the nails was cut too short and that is when the pain began. On July 29 they went to the ED at [facility] in [place] for the pain. She had an Xray done and was told she had a fracture. She was given oxycodone, but only took one pill. Earlier today she saw her PCP who stated she needed to come to the Emergency room. Patient presented to [facility]. An ultrasound showed an extensive atherosclerotic plaque and abnormal flow in the right extremity. Determine patient needs a CTA so she was transferred to [place]. Patient reports he felt feverish over the weekend, but it resolves. She currently denies chest pain , SOB, nausea, headache, or blurry vision. 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 Patient is non compliant with her home medications. She is able to ambulate at home with a cane. - Current Medication List Current Medications: Active Medications Acetaminophen (Tylenol -) 325 mg PO Q4H PRN PRN Reason: PAIN LEVEL 7 - 10 Last Admin: 09/02/18 06:49 Dose: 325 mg Amlodipine Besylate (Norvasc -) 10 mg PO DAILY [facility] Last Admin: 09/01/18 10:34 Dose: 10 mg Atorvastatin Calcium (Lipitor -) 40 mg PO HS [facility] Last Admin: 09/01/18 22:42 Dose: 40 mg Docusate Sodium (Colace -) 100 mg PO BID [facility] Last Admin: 09/01/18 22:42 Dose: 100 mg Enoxaparin Sodium (Lovenox -) 60 mg SQ BID [facility] Last Admin: 09/01/18 22:47 Dose: 60 mg Ferrous Sulfate (Feosol -) 325 mg PO DAILY [facility] Last Admin: 09/01/18 10:34 Dose: 325 mg Hydrochlorothiazide (Hctz -) 50 mg PO DAILY [facility] Last Admin: 09/01/18 10:34 Dose: 50 mg Insulin Aspart (Novolog Vial Sliding Scale -) 1 vial SQ Q6H [facility]; Protocol Last Admin: 09/02/18 06:48 Dose: 2 units Insulin Detemir (Levemir Vial) 5 units SQ HS [facility] Last Admin: 09/01/18 22:44 Dose: 5 units Losartan Potassium (Cozaar -) 100 mg PO DAILY [facility] Last Admin: 09/01/18 10:34 Dose: 100 mg Oxycodone HCl (Roxicodone -) 5 mg PO Q4H PRN PRN Reason: PAIN LEVEL 6-10 Last Admin: 09/02/18 06:49 Dose: 5 mg Polyethylene Glycol (Miralax (For Daily Use) -) 17 gm PO BID [facility] Last Admin: 09/01/18 22:45 Dose: 17 grams Senna (Senna -) 1 tab PO BID [facility] Last Admin: 09/01/18 22:43 Dose: 1 tab - Objective Vital Signs: Vital Signs Temperature 98.2 F 09/02/18 07:36 Pulse Rate 68 09/02/18 07:36 Respiratory Rate 18 09/02/18 07:36 Blood Pressure 105/63 09/02/18 07:36 O2 Sat by Pulse Oximetry (%) 97 09/01/18 21:00 Eyes: Yes: WNL, Conjunctiva Clear, EOM Intact HENT: Yes: WNL, Atraumatic, Normocephalic Neck: Yes: WNL, Supple, Trachea Midline Cardiovascular: Yes: WNL, Regular Rate and Rhythm Respiratory: Yes: WNL, Regular, CTA Bilaterally Gastrointestinal: Yes: WNL, Normal Bowel Sounds Genitourinary: Yes: WNL Musculoskeletal: Yes: WNL Extremities: Yes: Other (r foot dry gangrene) Edema: No Integumentary: Yes: WNL Neurological: Yes: WNL, Alert, Oriented ...Motor Strength: WNL Psychiatric: Yes: WNL Labs: CBC, BMP 09/02/18 07:00 08/31/18 06:55 INR, PTT INR 1.43 (0.83-1.09) H 08/23/18 21:30 Problem List - Problems (1) Leukocytosis Code(s): D72.829 - ELEVATED WHITE BLOOD CELL COUNT, UNSPECIFIED (2) Lower limb ischemia Code(s): I99.8 - OTHER DISORDER OF CIRCULATORY SYSTEM Assessment/Plan - Problems (1) Gangrene of toe of right foot Assessment/Plan: Lexiscan stress MIBI no ischemia, Patient is cleared for R l ext amputation. Code(s): I96 - GANGRENE, NOT ELSEWHERE CLASSIFIED (2) Hyperlipidemia Assessment/Plan: On atorvastatin; total cholesterol is <100 mg/dL. Code(s): E78.5 - HYPERLIPIDEMIA, UNSPECIFIED (3) HTN (hypertension) Assessment/Plan: on losartan, HCTZ, and amlodipine. Code(s): I10 - ESSENTIAL (PRIMARY) HYPERTENSION (4) Leukocytosis Code(s): D72.829 - ELEVATED WHITE BLOOD CELL COUNT, UNSPECIFIED (5) Diastolic CHF Assessment/Plan: ECHO: normal LVEF: abnormal diastolic compliance; mild-moderate TR. On losartan. F/u BUN/Cr, [id number], daily weight, Is and Os. Code(s): I50.30 - UNSPECIFIED DIASTOLIC (CONGESTIVE) HEART FAILURE
[2018-09-02] MEDS: FERROUS SO4 325 MG TABLET (FP) PO SCH (10:14)
[2018-09-02] MEDS: SENNOSIDES 8.6MG TABLET (FP) PO SCH ×2 (10:14→21:49)
[2018-09-02] MEDS: HYDROCHLOROTHIAZIDE 25 MG TABLET (FP) PO SCH (10:15)
[2018-09-02] MEDS: amLODIPine BESYLATE 10 MG TABLET (FP) PO SCH (10:15)
[2018-09-02] MEDS: ENOXAPARIN NA (PORCINE) 60 MG/0.6 ML DISP.SYRIN SQ SCH (10:15)
[2018-09-02] MEDS: DOCUSATE SODIUM 100 MG CAPSULE (FP) PO SCH ×2 (10:15→21:49)
[2018-09-02] MEDS: LOSARTAN POTASSIUM 50 MG TABLET (FP) PO SCH (10:15)
[2018-09-02] MEDS: POLYETHYLENE GLYCOL 3350 119 GM BTL PO SCH ×2 (10:16→21:50)
[2018-09-02] MEDS ORDERED: GLYCERIN 1 RECTAL SUPPOSITORY, ADULT PR ONE (10:40)
--- NOTE | 2018-09-02 11:06 | PN ---
Teaching Attending Note Name of Resident: London Linares ATTENDING PHYSICIAN STATEMENT I saw and evaluated the patient. I reviewed the resident's note and discussed the case with the resident. I agree with the resident's findings and plan as documented. SUBJECTIVE:asymptomatic. denies CP, SOB, fever, chills, N/V/C/D. still agreeable to surgery tomorrow OBJECTIVE: Last Vital Signs Temp Pulse Resp BP Pulse Ox 98.2 F 68 18 105/63 97 09/02/18 07:36 09/02/18 07:36 09/02/18 07:36 09/02/18 07:36 09/01/18 21:00 General NAD Abdomen soft NT/ND +RUQ JAMEL drain Extremities dry gangrene of the 1st and 3rd-5th digits. with demarcation on the top of toes. no drainage noted. no warmth ASSESSMENT AND PLAN: 83 year old woman with a history of type 2 DM, HTN admitted for Right foot ischemia and found to have HTN urgency on presentation 1. R Foot ischemia- s/p angio with Popliteal artery and SFA sent placement 08/08. NPO tonight for BKA in the AM. has already been risk assessed for surgery. hold lovenox tonight. pain control. 2. Acute cholecystisis- s/p JAMEL drain 08/22. off abx. will f/u with surgeon as outpatient for drain removal. 3. Pseudothrombocytopenia-stable. on full dose lovenox. hematology on board 4. HTN urgency-controlled. cont current management. 5. constipation-likely opiate induced. no BM x3 days. give suppository. cont stool softeners 6. Normocytic anemia- iron def anemia. s/p venofer. on iron daily and monitor for regular BM. should have iron studies repeated in 3 months 7. DM- A1c 9.4. improved. cont levemir and iss. titrate as needed. hold oral agents on discharge 8. +UCx- not symptomatic. will not treat 9. DVT ppx- full dose lovenox. hold tonights dose
--- NOTE | 2018-09-02 12:10 | PN ---
Physical Exam: SUBJECTIVE: Patient seen and examined at bedside. Pt has no complaints. OBJECTIVE: Vital Signs Period Temp Pulse Resp BP Sys/Reyes Pulse Ox Last 24 Hr 98.2 F-98.4 F 68-89 18-20 105-122/58-66 97 Gen: Comfortable, NAD HEENT: NCAT, EOMI Neck: supple, no jvd Cardio: rrr, norm s1s2, no mrg Pulm: CTA b/l Abd: nondistednded, soft, nontender, Melanie tube in place and cdi Ext: R foot with dry gangrene of several toes incl great toe Laboratory Results - last 24 hr 09/01/18 09/01/18 09/02/18 16:54 22:41 06:48 WBC RBC Hgb Hct MCV MCH MCHC RDW Plt Count MPV Platelet Comment PTT (Actin FS) POC Glucometer 306 145 165 09/02/18 09/02/18 07:00 07:00 WBC 6.1 RBC 3.89 Hgb 10.2 L Hct 32.5 MCV 83.7 MCH 26.3 MCHC 31.5 L RDW 17.1 H Plt Count MPV 7.7 Platelet Comment Mod plt clumping PTT (Actin FS) 33.3 POC Glucometer Active Medications Generic Name Dose Route Start Last Admin Trade Name Freq PRN Reason Stop Dose Admin Acetaminophen 325 mg 08/26/18 22:14 09/02/18 11:41 Tylenol - PO 325 mg Q4H PRN Administration PAIN LEVEL 7 - 10 Amlodipine Besylate 10 mg 08/10/18 10:00 09/02/18 10:15 Norvasc - PO 10 mg DAILY FLYNN Administration Atorvastatin Calcium 40 mg 08/13/18 22:00 09/01/18 22:42 Lipitor - PO 40 mg HS FLYNN Administration Docusate Sodium 100 mg 08/09/18 22:00 09/02/18 10:15 Colace - PO 100 mg BID FLYNN Administration Enoxaparin Sodium 60 mg 09/01/18 22:00 09/02/18 10:15 Lovenox - SQ 60 mg BID FLYNN Administration Ferrous Sulfate 325 mg 09/01/18 10:00 09/02/18 10:14 Feosol - PO 325 mg DAILY FLYNN Administration Hydrochlorothiazide 50 mg 08/17/18 10:00 09/02/18 10:15 Hctz - PO 50 mg DAILY FLYNN Administration Insulin Aspart 1 vial 08/19/18 18:00 09/02/18 06:48 Novolog Vial Sliding Scale - SQ 2 units Q6H FLYNN Administration Protocol Insulin Detemir 5 units 08/17/18 22:00 09/01/18 22:44 Levemir Vial SQ 5 units HS FLYNN Administration Losartan Potassium 100 mg 08/17/18 10:00 09/02/18 10:15 Cozaar - PO 100 mg DAILY FLYNN Administration Oxycodone HCl 5 mg 08/30/18 15:30 09/02/18 11:41 Roxicodone - PO 5 mg Q4H PRN Administration PAIN LEVEL 6-10 Polyethylene Glycol 17 gm 08/14/18 10:00 09/02/18 10:16 Miralax (For Daily Use) - PO 17 grams BID FLYNN Administration Senna 1 tab 08/09/18 22:00 09/02/18 10:14 Senna - PO 1 tab BID FLYNN Administration ASSESSMENT/PLAN: Pt is an 83 y/o F with PMH DM2, HTN who was admitted for R foot ischemia. Pt was found to have cholecystitis during her stay necessitating a cholecystostomy tube. #R foot ischemia -s/p popliteal & sfa stenting 08/08 -plan for NPO tomorrow -seen by cards for risk stratification #Acute cholecystitis -no more abd pain -drain placed 08/22. Functioning well. cdi -f/u out pt #Pseudothrombocytopenia -plt should be drawn from blue top tubes per heme/onc -heme/onc on board -lovenox #HTN urgency: resolved -norvasc, hctz, cozaar #constipation -suppository -senna, colace #anemia -Fe defic -s/p venofer -c/w Feosol #DM -A1C 9.4. on levemir and ISS #asymptomatic bacteriuria -no indication to treat at this time #FEN -not on fluids -prior mildly elevated K. Will monitor -NPO after midnight #PPx -hold lovenox for surg #Dispo -Med surg for BKA tomorrow London Linares MD PGY-2 IM Visit type - Emergency Visit Emergency Visit: No - New Patient This patient is new to me today: No - Critical Care Critical Care patient: No
--- NOTE | 2018-09-02 13:25 | PN ---
Progress Note (short form) - Note Progress Note: FUV right foot. dry gangarene right foot toes 1,3,4,5, wbc=6.1 dry gangarene pvd BKA scheduled tomorrow according to note. will follow till dc.
[2018-09-02] MEDS ORDERED: INSULIN (NOVOLOG) ASPART 100 UNITS/ML 10ML VIAL ONE (17:30)
[2018-09-02] MEDS: ATORVASTATIN CA 40 MG TABLET (FP) PO SCH (21:49)
[2018-09-02] MEDS: INSULIN (LEVEMIR) 100 UNITS/ML UNITS SQ SCH (21:51)
[2018-09-03] MEDS: INSULIN SLIDING SCALE (NOVOLOG) 1 VIAL SQ SCH ×4 (00:45→18:17)
[2018-09-03 07:35] LABS: BASO % 0.3 % (0-2.0); EOS % 0.9 % (0-4.5); HEMATOCRIT 31.6 % (32.4-45.2); HEMOGLOBIN 10.6 GM/dL (10.7-15.3); LYMPH % 18.9 % (8-40); MCH 27.8 pg (25.7-33.7); MCHC 33.4 g/dl (32.0-36.0); MEAN CELL VOLUME 83.2 fl (80-96); MEAN PLT VOLUME 8.1 fl (7.5-11.1); MONO % 7.8 % (3.8-10.2); NEUT % 72.1 % (42.8-82.8); WHITE BLOOD COUNT 6.1 K/mm3 (4.0-10.0)
[2018-09-03 08:08] LABS: ANION GAP 9 MMOL/L (8-16); BLOOD UREA NITROGEN 32 mg/dL (7-18); CALCIUM 8.7 mg/dL (8.5-10.1); CHLORIDE 102 mmol/L (98-107); CO2 25 mmol/L (21-32); CREATININE 1.1 mg/dL (0.55-1.3); GLUCOSE,RANDOM 152 mg/dL (74-106); POTASSIUM 4.7 mmol/L (3.5-5.1); SODIUM 137 mmol/L (136-145)
[2018-09-03] MEDS ORDERED: PT OWN MED DRAWER 7, Y5N ONE (09:46)
--- NOTE | 2018-09-03 09:51 | PN ---
Progress Note (short form) - Note Progress Note: Vascular Surgery Family has agreed to right BKA Unable to do today. Pt is booked for 2pm tomasz. NPO past midnite. Keep AC on hold. William Cates DO
[2018-09-03] MEDS: LOSARTAN POTASSIUM 50 MG TABLET (FP) PO SCH (10:34)
[2018-09-03] MEDS: FERROUS SO4 325 MG TABLET (FP) PO SCH (10:34)
[2018-09-03] MEDS: DOCUSATE SODIUM 100 MG CAPSULE (FP) PO SCH ×2 (10:34→22:11)
[2018-09-03] MEDS: POLYETHYLENE GLYCOL 3350 119 GM BTL PO SCH ×2 (10:35→22:12)
[2018-09-03] MEDS: HYDROCHLOROTHIAZIDE 25 MG TABLET (FP) PO SCH ×2 (10:35→10:50)
[2018-09-03] MEDS: SENNOSIDES 8.6MG TABLET (FP) PO SCH ×2 (10:36→22:11)
[2018-09-03] MEDS: amLODIPine BESYLATE 10 MG TABLET (FP) PO SCH (10:40)
[2018-09-03] MEDS: oxyCODONE HCL 5 MG TABLET PO PRN ×2 (12:03→17:25)
--- NOTE | 2018-09-03 13:26 | PN ---
Teaching Attending Note Name of Resident: London Pope ATTENDING PHYSICIAN STATEMENT I saw and evaluated the patient. I reviewed the resident's note and discussed the case with the resident. I agree with the resident's findings and plan as documented. SUBJECTIVE:asymptomatic. denies Cp, SOB, fever, chills, N/V/D/. no BM x3 days OBJECTIVE: Last Vital Signs Temp Pulse Resp BP Pulse Ox 98.1 F 76 20 123/50 L 95 09/03/18 06:00 09/03/18 06:00 09/03/18 06:00 09/03/18 06:00 09/02/18 21:00 General NAD Abdomen soft NT/ND +RUQ JAMEL drain Extremities dry gangrene of the 1st and 3rd-5th digits. with demarcation on the top of toes. no drainage noted. no warmth ASSESSMENT AND PLAN: 83 year old woman with a history of type 2 DM, HTN admitted for Right foot ischemia and found to have HTN urgency on presentation 1. R Foot ischemia- s/p angio with Popliteal artery and SFA sent placement 08/08. unable to fit on schedule today. NPO tonight for BKA in the AM. has already been risk assessed for surgery. hold lovenox tonight. pain control. 2. Acute cholecystisis- s/p JAMEL drain 08/22. off abx. will f/u with surgeon as outpatient for drain removal. 3. Pseudothrombocytopenia-stable. on full dose lovenox. hematology on board 4. HTN urgency-controlled. cont current management. 5. constipation-likely opiate induced. suppository given yesterday. consider enema if no BM for 24H. cont stool softeners 6. Normocytic anemia- iron def anemia. s/p venofer. on iron daily and monitor for regular BM. should have iron studies repeated in 3 months 7. DM- A1c 9.4. improved. cont levemir and iss. titrate as needed. hold oral agents on discharge 8. +UCx- not symptomatic. will not treat 9. DVT ppx- full dose lovenox. hold tonights dose
[2018-09-03] MEDS ORDERED: SODIUM PHOSPHATE/NA BIPHOS 133 ML ENEMA PR ONE (15:17)
--- NOTE | 2018-09-03 18:28 | PN ---
Progress Note, Physician History of Present Illness: Patient is a 83 y/o female with a history of DM and HTN who presents for right foot pain. She described the pain as a burning, its starts in her foot and moves up to her knee. She rates it as 8/10. It is worse with touch and when she is walking. She has not found that anything makes it better, she has been trying to use icy hot but with no relief. The pain has been worsening for the last three weeks. Patient denies any recent trauma On july 23 patient followed up with her engineering program manager who cut her nails. Patient believes one of the nails was cut too short and that is when the pain began. On July 29 they went to the ED at [facility] in [place] for the pain. She had an Xray done and was told she had a fracture. She was given oxycodone, but only took one pill. Earlier today she saw her PCP who stated she needed to come to the Emergency room. Patient presented to [facility]. An ultrasound showed an extensive atherosclerotic plaque and abnormal flow in the right extremity. Determine patient needs a CTA so she was transferred to [place]. Patient reports he felt feverish over the weekend, but it resolves. She currently denies chest pain , SOB, nausea, headache, or blurry vision. 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 Patient is non compliant with her home medications. She is able to ambulate at home with a cane. - Current Medication List Current Medications: Active Medications Acetaminophen (Tylenol -) 325 mg PO Q4H PRN PRN Reason: PAIN LEVEL 7 - 10 Last Admin: 09/02/18 16:50 Dose: 325 mg Amlodipine Besylate (Norvasc -) 10 mg PO DAILY [facility] Last Admin: 09/03/18 10:40 Dose: Not Given Atorvastatin Calcium (Lipitor -) 40 mg PO [facility] Last Admin: 09/02/18 21:49 Dose: 40 mg Docusate Sodium (Colace -) 100 mg PO BID [facility] Last Admin: 09/03/18 10:34 Dose: 100 mg Enoxaparin Sodium (Lovenox -) 60 mg SQ BID [facility] Last Admin: 09/02/18 10:15 Dose: 60 mg Ferrous Sulfate (Feosol -) 325 mg PO DAILY [facility] Last Admin: 09/03/18 10:34 Dose: 325 mg Insulin Aspart (Novolog Vial Sliding Scale -) 1 vial SQ Q6H [facility]; Protocol Last Admin: 09/03/18 18:17 Dose: 2 units Insulin Detemir (Levemir Vial) 5 units SQ HS [facility] Last Admin: 09/02/18 21:51 Dose: 5 units Losartan Potassium (Cozaar -) 100 mg PO DAILY [facility] Last Admin: 09/03/18 10:34 Dose: 100 mg Oxycodone HCl (Roxicodone -) 5 mg PO Q4H PRN PRN Reason: PAIN LEVEL 6-10 Last Admin: 09/03/18 17:25 Dose: 5 mg Polyethylene Glycol (Miralax (For Daily Use) -) 17 gm PO BID [facility] Last Admin: 09/03/18 10:35 Dose: 17 grams Senna (Senna -) 1 tab PO BID [facility] Last Admin: 09/03/18 10:36 Dose: 1 tab - Objective Vital Signs: Vital Signs Temperature 98.5 F 09/03/18 17:57 Pulse Rate 73 09/03/18 17:57 Respiratory Rate 20 09/03/18 17:57 Blood Pressure 123/53 L 09/03/18 17:57 O2 Sat by Pulse Oximetry (%) 97 09/03/18 13:00 Eyes: Yes: WNL, Conjunctiva Clear, EOM Intact HENT: Yes: WNL, Atraumatic, Normocephalic Neck: Yes: WNL, Supple, Trachea Midline Cardiovascular: Yes: WNL, Regular Rate and Rhythm Respiratory: Yes: WNL, Regular, CTA Bilaterally Gastrointestinal: Yes: WNL, Normal Bowel Sounds Genitourinary: Yes: WNL Musculoskeletal: Yes: WNL Extremities: Yes: Other (gangrene) Edema: No Integumentary: Yes: WNL Neurological: Yes: WNL, Alert, Oriented ...Motor Strength: WNL Psychiatric: Yes: WNL Labs: CBC, BMP 09/03/18 06:45 09/03/18 06:45 INR, PTT INR 1.43 (0.83-1.09) H 08/23/18 21:30 Problem List - Problems (1) Leukocytosis Code(s): D72.829 - ELEVATED WHITE BLOOD CELL COUNT, UNSPECIFIED (2) Lower limb ischemia Code(s): I99.8 - OTHER DISORDER OF CIRCULATORY SYSTEM Assessment/Plan - Problems (1) Gangrene of toe of right foot Assessment/Plan: Lexiscan stress MIBI no ischemia, Patient is cleared for R l ext amputation. Code(s): I96 - GANGRENE, NOT ELSEWHERE CLASSIFIED (2) Hyperlipidemia Assessment/Plan: On atorvastatin; total cholesterol is <100 mg/dL. Code(s): E78.5 - HYPERLIPIDEMIA, UNSPECIFIED (3) HTN (hypertension) Assessment/Plan: on losartan, HCTZ, and amlodipine. Code(s): I10 - ESSENTIAL (PRIMARY) HYPERTENSION (4) Leukocytosis Code(s): D72.829 - ELEVATED WHITE BLOOD CELL COUNT, UNSPECIFIED (5) Diastolic CHF Assessment/Plan: ECHO: normal LVEF: abnormal diastolic compliance; mild-moderate TR. On losartan. F/u BUN/Cr, [id number], daily weight, Is and Os. Code(s): I50.30 - UNSPECIFIED DIASTOLIC (CONGESTIVE) HEART FAILURE
--- NOTE | 2018-09-03 19:18 | PN ---
Physical Exam: THIS NOTE IS FOR 08/31/18. PLEASE DISREGARD DISCHARGE SUMMARY ON PT WAS NOT DISCHARGED. SUBJECTIVE: Patient seen and examined at bedside. No acute events overnight. C/ o R foot pain. OBJECTIVE: Vital Signs Period Temp Pulse Resp BP Sys/Reyes Pulse Ox Last 24 Hr 98.1 F-98.5 F 73-79 18-20 112-130/48-80 95-97 GENERAL: NAD Awake Alert HEAD: NC/AT EYES: EOMI conjunctiva clear LUNGS: Dec Breath sounds at bases HEART: No MRG S1S2 RRR ABDOMEN: Cholecystostomy tube draining NDNT EXTREMITIES: R large toe gangrene, third, fourth and 5th toes gangrene as well. Fine demarcation appreciated between gangrene and normal skin coloration. Laboratory Results - last 24 hr 09/02/18 09/03/18 09/03/18 21:48 06:40 06:45 WBC RBC Hgb Hct MCV MCH MCHC RDW Plt Count MPV Absolute Neuts (auto) Neutrophils % Lymphocytes % Monocytes % Eosinophils % Basophils % Nucleated RBC % Plt Clumps, Citrate Platelet Comment PTT (Actin FS) 30.3 Sodium Potassium Chloride Carbon Dioxide Anion Gap BUN Creatinine Creat Clearance w eGFR POC Glucometer 200 164 Random Glucose Calcium 09/03/18 09/03/18 09/03/18 06:45 06:45 12:06 WBC 6.1 RBC 3.80 Hgb 10.6 L Hct 31.6 L MCV 83.2 MCH 27.8 MCHC 33.4 RDW 17.0 H Plt Count MPV 8.1 Absolute Neuts (auto) 4.4 Neutrophils % 72.1 Lymphocytes % 18.9 Monocytes % 7.8 Eosinophils % 0.9 Basophils % 0.3 Nucleated RBC % 0 Plt Clumps, Citrate 306.0 Platelet Comment Mod plt clumping PTT (Actin FS) Sodium 137 Potassium 4.7 Chloride 102 Carbon Dioxide 25 Anion Gap 9 BUN 32 H Creatinine 1.1 Creat Clearance w eGFR 47.67 POC Glucometer 297 Random Glucose 152 H Calcium 8.7 09/03/18 18:11 WBC RBC Hgb Hct MCV MCH MCHC RDW Plt Count MPV Absolute Neuts (auto) Neutrophils % Lymphocytes % Monocytes % Eosinophils % Basophils % Nucleated RBC % Plt Clumps, Citrate Platelet Comment PTT (Actin FS) Sodium Potassium Chloride Carbon Dioxide Anion Gap BUN Creatinine Creat Clearance w eGFR POC Glucometer 166 Random Glucose Calcium Active Medications Generic Name Dose Route Start Last Admin Trade Name Freq PRN Reason Stop Dose Admin Acetaminophen 325 mg 08/26/18 22:14 09/02/18 16:50 Tylenol - PO 325 mg Q4H PRN Administration PAIN LEVEL 7 - 10 Amlodipine Besylate 10 mg 08/10/18 10:00 09/03/18 10:40 Norvasc - PO Not Given DAILY FLYNN Atorvastatin Calcium 40 mg 08/13/18 22:00 09/02/18 21:49 Lipitor - PO 40 mg HS FLYNN Administration Docusate Sodium 100 mg 08/09/18 22:00 09/03/18 10:34 Colace - PO 100 mg BID FLYNN Administration Enoxaparin Sodium 60 mg 09/01/18 22:00 09/02/18 10:15 Lovenox - SQ 60 mg BID FLYNN Administration Ferrous Sulfate 325 mg 09/01/18 10:00 09/03/18 10:34 Feosol - PO 325 mg DAILY FLYNN Administration Insulin Aspart 1 vial 08/19/18 18:00 09/03/18 18:17 Novolog Vial Sliding Scale - SQ 2 units Q6H FLYNN Administration Protocol Insulin Detemir 5 units 08/17/18 22:00 09/02/18 21:51 Levemir Vial SQ 5 units HS FLYNN Administration Losartan Potassium 100 mg 08/17/18 10:00 09/03/18 10:34 Cozaar - PO 100 mg DAILY FLYNN Administration Oxycodone HCl 5 mg 08/30/18 15:30 09/03/18 17:25 Roxicodone - PO 5 mg Q4H PRN Administration PAIN LEVEL 6-10 Polyethylene Glycol 17 gm 08/14/18 10:00 09/03/18 10:35 Miralax (For Daily Use) - PO 17 grams BID FLYNN Administration Senna 1 tab 08/09/18 22:00 09/03/18 10:36 Senna - PO 1 tab BID FLYNN Administration ASSESSMENT/PLAN: This is an 83 year old woman with a history of type 2 DM, HTN who presented to the ED with right foot pain. 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 -08/24/18 Pt has reconsidered surgical intervention. Dr Yusuf contacted and will speak to family. -Cardiology on board. Cardiology, Dr Mcgrath on board. Pt now medically clear for surgery. Lexiscan MIBI stress test--> LVEF 68% # Cholecystitis s/p perc Cholecystostomy tube insertion -S/P Percutaneous IR Guided Cholecystostomy w/ Dr Chase -ID On Board -Monitor Output # HTN - Norvasc 10 mg -Losartan to 100 -HCTZ 50 mg po daily combo #. Type 2 DM - Metformin, Januvia held - Continue Novolog sliding scale Ucx- + for lactobacilus -Asymptomatic will not treat #FEN No Fluids Monitor electrolytes Sodium/Diabetic Diet DVT ppx: Heparin Switched to Lovenox. Dispo: Med-Surg Visit type - Emergency Visit Emergency Visit: Yes ED Registration Date: 08/07/18 Care time: The patient presented to the Emergency Department on the above date and was hospitalized for further evaluation of their emergent condition. - New Patient This patient is new to me today: No - Critical Care Critical Care patient: No - Discharge Referral Referred to [facility] No
--- NOTE | 2018-09-03 19:20 | PN ---
Physical Exam: SUBJECTIVE: Patient seen and examined at bedside. No acute events overnight. Eating breakfast. Scheduled for BKA tomorrow. OBJECTIVE: Vital Signs Period Temp Pulse Resp BP Sys/Reyes Pulse Ox Last 24 Hr 98.1 F-98.5 F 73-79 18-20 112-130/48-80 95-97 GENERAL: Awake Alert Pleasant HEAD: NC/AT EYES: EOMI conjunctiva clear LUNGS: Dec Breath sounds at bases HEART: No MRG S1S2 RRR ABDOMEN: Cholecystostomy tube draining NDNT EXTREMITIES: Right Foot mottled, Toes gangrenous with demarcation at base of toes. Sensation absent in foot. Laboratory Results - last 24 hr 09/02/18 09/03/18 09/03/18 21:48 06:40 06:45 WBC RBC Hgb Hct MCV MCH MCHC RDW Plt Count MPV Absolute Neuts (auto) Neutrophils % Lymphocytes % Monocytes % Eosinophils % Basophils % Nucleated RBC % Plt Clumps, Citrate Platelet Comment PTT (Actin FS) 30.3 Sodium Potassium Chloride Carbon Dioxide Anion Gap BUN Creatinine Creat Clearance w eGFR POC Glucometer 200 164 Random Glucose Calcium 09/03/18 09/03/18 09/03/18 06:45 06:45 12:06 WBC 6.1 RBC 3.80 Hgb 10.6 L Hct 31.6 L MCV 83.2 MCH 27.8 MCHC 33.4 RDW 17.0 H Plt Count MPV 8.1 Absolute Neuts (auto) 4.4 Neutrophils % 72.1 Lymphocytes % 18.9 Monocytes % 7.8 Eosinophils % 0.9 Basophils % 0.3 Nucleated RBC % 0 Plt Clumps, Citrate 306.0 Platelet Comment Mod plt clumping PTT (Actin FS) Sodium 137 Potassium 4.7 Chloride 102 Carbon Dioxide 25 Anion Gap 9 BUN 32 H Creatinine 1.1 Creat Clearance w eGFR 47.67 POC Glucometer 297 Random Glucose 152 H Calcium 8.7 09/03/18 18:11 WBC RBC Hgb Hct MCV MCH MCHC RDW Plt Count MPV Absolute Neuts (auto) Neutrophils % Lymphocytes % Monocytes % Eosinophils % Basophils % Nucleated RBC % Plt Clumps, Citrate Platelet Comment PTT (Actin FS) Sodium Potassium Chloride Carbon Dioxide Anion Gap BUN Creatinine Creat Clearance w eGFR POC Glucometer 166 Random Glucose Calcium Active Medications Generic Name Dose Route Start Last Admin Trade Name Freq PRN Reason Stop Dose Admin Acetaminophen 325 mg 08/26/18 22:14 09/02/18 16:50 Tylenol - PO 325 mg Q4H PRN Administration PAIN LEVEL 7 - 10 Amlodipine Besylate 10 mg 08/10/18 10:00 09/03/18 10:40 Norvasc - PO Not Given DAILY FLYNN Atorvastatin Calcium 40 mg 08/13/18 22:00 09/02/18 21:49 Lipitor - PO 40 mg HS FLYNN Administration Docusate Sodium 100 mg 08/09/18 22:00 09/03/18 10:34 Colace - PO 100 mg BID FLYNN Administration Enoxaparin Sodium 60 mg 09/01/18 22:00 09/02/18 10:15 Lovenox - SQ 60 mg BID FLYNN Administration Ferrous Sulfate 325 mg 09/01/18 10:00 09/03/18 10:34 Feosol - PO 325 mg DAILY FLYNN Administration Insulin Aspart 1 vial 08/19/18 18:00 09/03/18 18:17 Novolog Vial Sliding Scale - SQ 2 units Q6H FLYNN Administration Protocol Insulin Detemir 5 units 08/17/18 22:00 09/02/18 21:51 Levemir Vial SQ 5 units HS FLYNN Administration Losartan Potassium 100 mg 08/17/18 10:00 09/03/18 10:34 Cozaar - PO 100 mg DAILY FLYNN Administration Oxycodone HCl 5 mg 08/30/18 15:30 09/03/18 17:25 Roxicodone - PO 5 mg Q4H PRN Administration PAIN LEVEL 6-10 Polyethylene Glycol 17 gm 08/14/18 10:00 09/03/18 10:35 Miralax (For Daily Use) - PO 17 grams BID FLYNN Administration Senna 1 tab 08/09/18 22:00 09/03/18 10:36 Senna - PO 1 tab BID FLYNN Administration ASSESSMENT/PLAN: This is an 83 year old woman with a history of type 2 DM, HTN who presented to the ED with right foot pain. 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 -08/24/18 Pt has reconsidered surgical intervention. Dr Yusuf contacted and will speak to family. -Cardiology on board. BKA tomorrow. Cardiology, Dr Mcgrath on board. Pt now medically clear for surgery. Lexiscan MIBI stress test--> LVEF 68% BKA tomorrow with Dr Cates # Cholecystitis s/p perc Cholecystostomy tube insertion -S/P Percutaneous IR Guided Cholecystostomy w/ Dr Chase -ID On Board # Constipation -Fleet enema administered #Normocytic Anemia Ferrous Sulfate Daily # HTN BP 112/43 this am. Amlodipine and HCTZ witheld. - Norvasc 10 mg -Losartan to 100 -HCTZ Discontinued as pt clinically dry and hy #. Type 2 DM - Metformin, Januvia held - Continue Novolog sliding scale #FEN No Fluids Monitor electrolytes NPO after midnight. DVT ppx: Lovenox on hold as surgery tomorrow Dispo: Med-Surg Visit type - Emergency Visit Emergency Visit: Yes ED Registration Date: 08/07/18 Care time: The patient presented to the Emergency Department on the above date and was hospitalized for further evaluation of their emergent condition. - New Patient This patient is new to me today: No - Critical Care Critical Care patient: No - Discharge Referral Referred to [facility] No
[2018-09-03] MEDS: INSULIN (LEVEMIR) 100 UNITS/ML UNITS SQ SCH (22:11)
[2018-09-03] MEDS: ATORVASTATIN CA 40 MG TABLET (FP) PO SCH (22:11)
[2018-09-03] MEDS: ENOXAPARIN NA (PORCINE) 60 MG/0.6 ML DISP.SYRIN SQ SCH (22:12)
[2018-09-04] MEDS: INSULIN SLIDING SCALE (NOVOLOG) 1 VIAL SQ SCH ×5 (01:56→23:56)
[2018-09-04 06:48] LABS: HEMATOCRIT 33.1 % (32.4-45.2); HEMOGLOBIN 10.4 GM/dL (10.7-15.3); MCH 26.3 pg (25.7-33.7); MCHC 31.4 g/dl (32.0-36.0); MEAN CELL VOLUME 83.7 fl (80-96); MEAN PLT VOLUME 7.8 fl (7.5-11.1); PLATELET COUNT 213 K/MM3 (134-434); RBC 3.95 M/mm3 (3.60-5.2); WHITE BLOOD COUNT 5.7 K/mm3 (4.0-10.0)
[2018-09-04 07:22] LABS: ANION GAP 9 MMOL/L (8-16); BLOOD UREA NITROGEN 29 mg/dL (7-18); CALCIUM 8.3 mg/dL (8.5-10.1); CHLORIDE 104 mmol/L (98-107); CO2 24 mmol/L (21-32); CREATININE 0.8 mg/dL (0.55-1.3); GLUCOSE,RANDOM 149 mg/dL (74-106); MAGNESIUM 2.1 mg/dL (1.8-2.4); PHOSPHOROUS 4.1 mg/dL (2.5-4.9); POTASSIUM 4.4 mmol/L (3.5-5.1); SODIUM 137 mmol/L (136-145)
[2018-09-04] MEDS: FERROUS SO4 325 MG TABLET (FP) PO SCH (10:15)
[2018-09-04] MEDS: DOCUSATE SODIUM 100 MG CAPSULE (FP) PO SCH ×2 (10:15→21:26)
[2018-09-04] MEDS: LOSARTAN POTASSIUM 50 MG TABLET (FP) PO SCH (10:15)
[2018-09-04] MEDS: amLODIPine BESYLATE 10 MG TABLET (FP) PO SCH (10:16)
[2018-09-04] MEDS: POLYETHYLENE GLYCOL 3350 119 GM BTL PO SCH ×2 (10:16→21:30)
[2018-09-04] MEDS: SENNOSIDES 8.6MG TABLET (FP) PO SCH ×2 (10:16→21:26)
[2018-09-04] MEDS: oxyCODONE HCL 5 MG TABLET PO PRN (11:08)
[2018-09-04] MEDS: ACETAMINOPHEN 325 MG TABLET (FP) PO PRN (11:08)
[2018-09-04] MEDS ORDERED: LACTATED RINGERS SOLUTION 1,000 ML/1,000 ML INFUS.BAG IV SCH ×2 (12:45→16:35)
--- NOTE | 2018-09-04 13:59 | PN ---
Progress Note (short form) - Note Progress Note: FUV right foot. patient seen right before OR procedure. She is having bka today. Spoke to daughter Carole. dry gangarene right foot toes 1,3,4,5, dry gangarene pvd BKA Today. Please reconsult if necessary.
[2018-09-04] MEDS ORDERED: SUCCINYLCHOLINE CHLORIDE 200 MG/10 ML VIAL ONE (14:47)
[2018-09-04] MEDS ORDERED: ceFAZolin SODIUM 1 GM VIAL IVPB ONE (14:48)
[2018-09-04] MEDS ORDERED: KETOROLAC TROMETHAMINE 30 MG/1 ML VIAL ONE (15:46)
--- NOTE | 2018-09-04 16:09 | OP ---
Operative Note - Note: Operative Date: 09/04/18 Pre-Operative Diagnosis: right foot gangrene Operation: right below knee amputation Post-Operative Diagnosis: Same as Pre-op Surgeon: William Cates Verification Clerk: Luis Juárez Anesthesia: General Estimated Blood Loss (mls): 75 Operative Report Dictated: Yes
--- NOTE | 2018-09-04 16:12 | PN ---
Teaching Attending Note Name of Resident: London Pope ATTENDING PHYSICIAN STATEMENT I saw and evaluated the patient. I reviewed the resident's note and discussed the case with the resident. I agree with the resident's findings and plan as documented with exceptions below. SUBJECTIVE: Patient seen and examined, right foot pain, no complaints otherwise. OBJECTIVE: Vital Signs Period Temp Pulse Resp BP Sys/Reyes Pulse Ox Last 24 Hr 97.5 F-99.3 F 73-85 18-20 118-169/53-79 97-97 Intake & Output 09/01/18 09/02/18 09/03/18 09/04/18 23:59 23:59 23:59 23:59 Intake Total 1240 1350 0 Output Total 250 250 100 200 Balance 990 1100 -100 -200 General: sitting in bed in no acute distress Chest:decreased efforts no rales or wheezing Abdomen:Soft, NT, cholecystostomy tube in place Extremities: progression of right toes gangrene from last week dusky right foot Home Medications Medication Instructions Recorded Amlodipine Besylate [Norvasc -] 10 mg PO DAILY tablet 08/31/18 Apixaban [Eliquis] 2.5 mg PO BID #30 tablet 08/31/18 Atorvastatin Ca [Lipitor] 40 mg PO HS tablet 08/31/18 Clopidogrel Bisulfate [Plavix] 75 mg PO DAILY #30 tablet 08/31/18 Docusate Sodium [Colace -] 100 mg PO BID capsule 08/31/18 Ferrous Sulfate 325 mg PO DAILY #30 tablet 08/31/18 Hydrochlorothiazide [Hctz -] 50 mg PO DAILY tablet 08/31/18 Insulin (Levemir) [Levemir Vial] 5 units SQ HS units 08/31/18 Insulin Sliding Scale [Novolog 1 vial SQ Q6H units 08/31/18 Vial Sliding Scale -] Losartan Potassium [Cozaar -] 100 mg PO DAILY tablet 08/31/18 Metoprolol Tartrate [Lopressor -] 12.5 mg PO BID tablet 08/31/18 Polyethylene Glycol 3350 [Miralax 17 gm PO BID bottle 08/31/18 119 gm Btl -] Sennosides [Senna -] 1 tab PO BID tablet 08/31/18 Active Medications Acetaminophen (Tylenol -) 325 mg PO Q4H PRN PRN Reason: PAIN LEVEL 7 - 10 Last Admin: 09/04/18 11:08 Dose: 325 mg Amlodipine Besylate (Norvasc -) 10 mg PO DAILY [facility] Last Admin: 09/04/18 10:16 Dose: Not Given Atorvastatin Calcium (Lipitor -) 40 mg PO HS [facility] Last Admin: 09/03/18 22:11 Dose: 40 mg Docusate Sodium (Colace -) 100 mg PO BID [facility] Last Admin: 09/04/18 10:15 Dose: Not Given Ferrous Sulfate (Feosol -) 325 mg PO DAILY [facility] Last Admin: 09/04/18 10:15 Dose: Not Given Lactated Ringer's (Lactated Ringers Solution) 1,000 ml in 1,000 mls @ 75 mls/ hr IV ASDIR [facility] Last Admin: 09/04/18 13:32 Dose: 75 mls/hr Insulin Aspart (Novolog Vial Sliding Scale -) 1 vial SQ Q6H [facility]; Protocol Last Admin: 09/04/18 13:33 Dose: Not Given Insulin Detemir (Levemir Vial) 5 units SQ HS [facility] Last Admin: 09/03/18 22:11 Dose: 5 units Losartan Potassium (Cozaar -) 100 mg PO DAILY [facility] Last Admin: 09/04/18 10:15 Dose: Not Given Polyethylene Glycol (Miralax (For Daily Use) -) 17 gm PO BID [facility] Last Admin: 09/04/18 10:16 Dose: Not Given Senna (Senna -) 1 tab PO BID [facility] Last Admin: 09/04/18 10:16 Dose: Not Given Laboratory Results - last 24 hr 09/03/18 09/03/18 09/04/18 18:11 21:16 05:46 WBC RBC Hgb Hct MCV MCH MCHC RDW Plt Count MPV PTT (Actin FS) Sodium Potassium Chloride Carbon Dioxide Anion Gap BUN Creatinine Creat Clearance w eGFR POC Glucometer 166 264 156 Random Glucose Calcium Phosphorus Magnesium 09/04/18 09/04/18 09/04/18 06:00 06:00 06:00 WBC 5.7 RBC 3.95 Hgb 10.4 L Hct 33.1 MCV 83.7 MCH 26.3 MCHC 31.4 L RDW 17.0 H Plt Count 213 D MPV 7.8 PTT (Actin FS) 27.1 Sodium 137 Potassium 4.4 Chloride 104 Carbon Dioxide 24 Anion Gap 9 BUN 29 H Creatinine 0.8 Creat Clearance w eGFR > 60 POC Glucometer Random Glucose 149 H Calcium 8.3 L Phosphorus 4.1 Magnesium 2.1 09/04/18 11:39 WBC RBC Hgb Hct MCV MCH MCHC RDW Plt Count MPV PTT (Actin FS) Sodium Potassium Chloride Carbon Dioxide Anion Gap BUN Creatinine Creat Clearance w eGFR POC Glucometer 174 Random Glucose Calcium Phosphorus Magnesium ASSESSMENT AND PLAN: 83 year old woman with a history of type 2 DM, HTN admitted for Right foot ischemia and found to have HTN urgency on presentation -Right foot ischemia with gangrene s/p angio with popliteal arter/SFA stent placement 08/08 -Acute cholecystitis s/p Cholecystostomy tube placement 08/22, off abx -Pseudothrombocytopenia (From clumping, platelets to be sent in blue tube) -HTN urgency -Constipation -Normocytic anemia -Poorly controlled DM A1c 9.4 -Asymptomatic bacteruria Plan: For Right BKA today. Will follow up. Anticipate will d/c plavix/full dose lovenox post procedure. Follow up with vascular surgery. Outpatient surgery follow for Right JAMEL drain removal. BP controlled. Place on gentle hydration while NPO. Bowel regimen. s/p venofer, on iron daily. Repeat iron studies in 3 months. Albert, JOHN. Hold oral agents. DVTPPX will start prophylactic dose post op per vascular surgery. Plan discussed with patient and all questions answered.
--- NOTE | 2018-09-04 16:21 | SURG ---
Surgery Sample Checker Note Sample Checker: Luis Juárez PA-C Date of Service: 09/04/18 Diagnosis: Right foot gangrene Procedure: Right below knee amputation I was present for the entirety of the operative procedure. For further detail, please refer to operative report. Visit type - Case Type Case Type: ED Admission - Emergency Emergency Visit: Yes ED Registration Date: 08/07/18 Care time: The patient presented to the Emergency Department on the above date and was hospitalized for further evaluation of their emergent condition. - New patient This patient is new to me today: Yes Date on this admission: 09/04/18
[2018-09-04] MEDS ORDERED: ONDANSETRON 4 MG/2 ML VIAL IVPUSH PRN (17:08)
[2018-09-04] MEDS ORDERED: PROMETHAZINE HCL 25 MG/1 ML VIAL IVPUSH PRN (17:08)
[2018-09-04] MEDS ORDERED: oxyCODONE HCL 5 MG TABLET PO PRN (17:08)
[2018-09-04] MEDS ORDERED: PT OWN MED DRAWER 7, Y5N ONE (21:22)
[2018-09-04] MEDS: ATORVASTATIN CA 40 MG TABLET (FP) PO SCH (21:25)
[2018-09-04] MEDS: INSULIN (LEVEMIR) 100 UNITS/ML UNITS SQ SCH (21:26)
[2018-09-04] MEDS: morphine SULFATE 4 MG/ML VIAL IVPUSH PRN (21:31)
[2018-09-05] MEDS: morphine SULFATE 4 MG/ML VIAL IVPUSH PRN ×2 (02:11→17:07)
[2018-09-05] MEDS: INSULIN SLIDING SCALE (NOVOLOG) 1 VIAL SQ SCH ×3 (06:30→17:41)
--- NOTE | 2018-09-05 06:32 | PN ---
Progress Note, Physician Chief Complaint: Pt has returned to room after right BKA; c/o pain in the right hip. History of Present Illness: Ms Pruett is an 83 yo black woman who presents to the ER due to foot pain Pt has a h/o DM and HTN with poor medication compliance The patient has been complaining of intermittent right lower extremity pain since June. She was noted to have increasing right foot pain on July 29. She was seen in an outside hospital where x-ray revealed a fracture of her great toe ??? (patient tells me she had no associated trauma) She was started on oxycodone, which she has been taking for pain. Her pain has persistently worsened. Beginning about 4 days ago, patient's pain was so significant that she was unable to bear weight on the right foot. She denies fevers, chills to me. She does admit to increased swelling of the foot. In order to treat her pain, she has been applying icy hot, with minimal relief. Patient denies trauma of any kind. She was seen today by her primary care physician in the city who told her that her foot was gangrenous. She was accompanied by her daughter to this visit, and daughter opted to bring her to this hospital here rather than have her treated at a local hospital. Patient tells me she's had no prior vascular issues in the past. She denies any chest pain, or history of atrial fibrillation. She denies abdominal pain. She denies headache. - Current Medication List Current Medications: Active Medications Acetaminophen (Tylenol -) 325 mg PO Q4H PRN PRN Reason: PAIN LEVEL 7 - 10 Amlodipine Besylate (Norvasc -) 10 mg PO DAILY [facility] Atorvastatin Calcium (Lipitor -) 40 mg PO HS [facility] Last Admin: 09/04/18 21:25 Dose: 40 mg Docusate Sodium (Colace -) 100 mg PO BID [facility] Last Admin: 09/04/18 21:26 Dose: 100 mg Ferrous Sulfate (Feosol -) 325 mg PO DAILY [facility] Insulin Aspart (Novolog Vial Sliding Scale -) 1 vial SQ Q6H [facility]; Protocol Last Admin: 09/05/18 06:30 Dose: Not Given Insulin Detemir (Levemir Vial) 5 units SQ HS [facility] Last Admin: 09/04/18 21:26 Dose: 5 units Losartan Potassium (Cozaar -) 100 mg PO DAILY [facility] Morphine Sulfate (Morphine Sulfate) 4 mg IVPUSH Q6H PRN PRN Reason: PAIN LEVEL 6-10 Last Admin: 09/05/18 02:11 Dose: 4 mg Ondansetron HCl (Zofran Injection) 4 mg IVPUSH Q6H PRN PRN Reason: NAUSEA AND/OR VOMITING Oxycodone HCl (Roxicodone -) 5 mg PO Q4H PRN PRN Reason: PAIN LEVEL 1-5 Stop: 09/05/18 17:07 Polyethylene Glycol (Miralax (For Daily Use) -) 17 gm PO BID [facility] Last Admin: 09/04/18 21:30 Dose: 17 gm Promethazine HCl (Phenergan Injection -) 12.5 mg IVPUSH Q6H PRN PRN Reason: NAUSEA-FOR RESCUE AFTER 15 MIN Senna (Senna -) 1 tab PO BID [facility] Last Admin: 09/04/18 21:26 Dose: 1 tab - Objective Vital Signs: Vital Signs Temperature 97.3 F L 09/04/18 21:00 Pulse Rate 64 09/04/18 21:00 Respiratory Rate 20 09/04/18 21:00 Blood Pressure 152/72 09/04/18 21:00 O2 Sat by Pulse Oximetry (%) 100 09/04/18 21:00 Constitutional: Yes: Thin Eyes: Yes: WNL HENT: Yes: WNL Neck: Yes: WNL Cardiovascular: Yes: S1, S2, S4 Respiratory: Yes: WNL Gastrointestinal: Yes: Soft ...Rectal Exam: Yes: Deferred Genitourinary: No: Anuria Musculoskeletal: Yes: Other (right BKA) Extremities: Yes: Cool Edema: No Peripheral Pulses WNL: No Integumentary: Yes: Other Wound/Incision: Yes: Dressing Dry and Intact Neurological: Yes: Alert, Weakness Psychiatric: Yes: WNL Labs: INR, PTT INR 1.43 (0.83-1.09) H 08/23/18 21:30 Abnormal Lab Results 09/04/18 09/04/18 06:00 06:00 Hgb 10.4 L MCHC 31.4 L RDW 17.0 H BUN 29 H Random Glucose 149 H Calcium 8.3 L Problem List - Problems (1) Gangrene of toe of right foot Assessment/Plan: s/p right BKA. f/u with surgeon. Code(s): I96 - GANGRENE, NOT ELSEWHERE CLASSIFIED (2) Hyperlipidemia Assessment/Plan: On atorvastatin; total cholesterol is <100 mg/dL. Code(s): E78.5 - HYPERLIPIDEMIA, UNSPECIFIED (3) HTN (hypertension) Assessment/Plan: on losartan, HCTZ, and amlodipine; f/u BP SERIALLY. Code(s): I10 - ESSENTIAL (PRIMARY) HYPERTENSION (4) Leukocytosis Code(s): D72.829 - ELEVATED WHITE BLOOD CELL COUNT, UNSPECIFIED (5) Diastolic CHF Assessment/Plan: ECHO: normal LVEF: abnormal diastolic compliance; mild-moderate TR. On losartan. Rising BUN; avoid dehydration. F/u BUN/Cr, eectrolytes, daily weight, Is and Os. Code(s): I50.30 - UNSPECIFIED DIASTOLIC (CONGESTIVE) HEART FAILURE
[2018-09-05 06:44] LABS: HEMATOCRIT 29.3 % (32.4-45.2); HEMOGLOBIN 9.2 GM/dL (10.7-15.3); MCH 26.5 pg (25.7-33.7); MCHC 31.4 g/dl (32.0-36.0); MEAN CELL VOLUME 84.2 fl (80-96); MEAN PLT VOLUME 8.5 fl (7.5-11.1); PLATELET COUNT 276 K/MM3 (134-434); RBC 3.48 M/mm3 (3.60-5.2); RDW 16.7 % (11.6-15.6); WHITE BLOOD COUNT 10.8 K/mm3 (4.0-10.0)
[2018-09-05 07:20] LABS: ANION GAP 5 MMOL/L (8-16); BLOOD UREA NITROGEN 33 mg/dL (7-18); CALCIUM 8.4 mg/dL (8.5-10.1); CHLORIDE 105 mmol/L (98-107); CO2 28 mmol/L (21-32); GLUCOSE,RANDOM 128 mg/dL (74-106); MAGNESIUM 1.9 mg/dL (1.8-2.4); PHOSPHOROUS 5.2 mg/dL (2.5-4.9); POTASSIUM 5.3 mmol/L (3.5-5.1); SODIUM 137 mmol/L (136-145)
[2018-09-05] MEDS ORDERED: SODIUM CHLORIDE 500 ML IV STA (08:13)
[2018-09-05] MEDS ORDERED: SODIUM POLYSTYRENE SULFONATE 15 GM/60 ML BOTTLE PO ONE (08:45)
[2018-09-05] MEDS: SENNOSIDES 8.6MG TABLET (FP) PO SCH ×2 (09:18→21:15)
[2018-09-05] MEDS: amLODIPine BESYLATE 10 MG TABLET (FP) PO SCH (09:18)
[2018-09-05] MEDS: POLYETHYLENE GLYCOL 3350 119 GM BTL PO SCH ×2 (09:18→21:15)
[2018-09-05] MEDS: FERROUS SO4 325 MG TABLET (FP) PO SCH (09:18)
[2018-09-05] MEDS: DOCUSATE SODIUM 100 MG CAPSULE (FP) PO SCH ×2 (09:18→21:15)
[2018-09-05] MEDS ORDERED: LOSARTAN POTASSIUM 50 MG TABLET (FP) PO SCH (10:00)
--- NOTE | 2018-09-05 11:25 | PN ---
Progress Note (short form) - Note Progress Note: POD #1 right BKA patient seen and examined at bedside with no complaints. Patient resting comfortably this morning. Vital Signs Temp 98.2 F 09/05/18 06:00 Pulse 69 09/05/18 06:00 Resp 20 09/05/18 06:00 BP 152/68 09/05/18 06:00 Pulse Ox 100 09/04/18 21:00 Intake & Output 09/04/18 09/04/18 09/05/18 11:59 23:59 11:59 Intake Total 950 Output Total 200 375 100 Balance -200 575 -100 Intake: IV 950 Output: Drainage 200 300 100 Right 200 300 100 Estimated Blood Loss 75 Other: Voiding Method Bedpan Diaper # Unmeasured Voids Void 2 1 Bowel Movement Yes # Bowel Movements 1 CBC, BMP 09/05/18 06:00 09/05/18 06:00 PE: A&Ox3, NAD Unlabored resp on RA Right LE thigh soft, supple and non-tender to palpation, Dressing d/c/i surrounding tissue intact with no tracking erythema or edema, with no evidence of d/c or active bleeding. Patient unable to bend her knee 2/2 pain. Placed back into brace. Problem List - Problems (1) S/P BKA (below knee amputation) Assessment/Plan: 83yo female s/p right BKA, with some post op anemia currently asymptomatic. 1) Continue brace 2) OOB with assist/ PT as tolerated 3) Trend labs 4) Pain control 5) Surgery to follow Code(s): Z89.519 - ACQUIRED ABSENCE OF UNSPECIFIED LEG BELOW KNEE
--- NOTE | 2018-09-05 13:34 | PN ---
Progress Note, Physician History of Present Illness: Patient is a 83 y/o female with a history of DM and HTN who presents for right foot pain. She described the pain as a burning, its starts in her foot and moves up to her knee. She rates it as 8/10. It is worse with touch and when she is walking. She has not found that anything makes it better, she has been trying to use icy hot but with no relief. The pain has been worsening for the last three weeks. Patient denies any recent trauma On july 23 patient followed up with her claims examiner who cut her nails. Patient believes one of the nails was cut too short and that is when the pain began. On July 29 they went to the ED at [facility] in [place] for the pain. She had an Xray done and was told she had a fracture. She was given oxycodone, but only took one pill. Earlier today she saw her PCP who stated she needed to come to the Emergency room. Patient [facility]. An ultrasound showed an extensive atherosclerotic plaque and abnormal flow in the right extremity. Determine patient needs a CTA so she was transferred to [place]. Patient reports he felt feverish over the weekend, but it resolves. She currently denies chest pain , SOB, nausea, headache, or blurry vision. 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 Patient is non compliant with her home medications. She is able to ambulate at home with a cane. - Current Medication List Current Medications: Active Medications Acetaminophen (Tylenol -) 325 mg PO Q4H PRN PRN Reason: PAIN LEVEL 7 - 10 Amlodipine Besylate (Norvasc -) 10 mg PO DAILY [facility] Last Admin: 09/05/18 09:18 Dose: 10 mg Atorvastatin Calcium (Lipitor -) 40 mg PO HS [facility] Last Admin: 09/04/18 21:25 Dose: 40 mg Docusate Sodium (Colace -) 100 mg PO BID [facility] Last Admin: 09/05/18 09:18 Dose: 100 mg Ferrous Sulfate (Feosol -) 325 mg PO DAILY [facility] Last Admin: 09/05/18 09:18 Dose: 325 mg Insulin Aspart (Novolog Vial Sliding Scale -) 1 vial SQ Q6H [facility]; Protocol Last Admin: 09/05/18 11:20 Dose: 4 units Insulin Detemir (Levemir Vial) 5 units SQ HS [facility] Last Admin: 09/04/18 21:26 Dose: 5 units Morphine Sulfate (Morphine Sulfate) 4 mg IVPUSH Q6H PRN PRN Reason: PAIN LEVEL 6-10 Last Admin: 09/05/18 02:11 Dose: 4 mg Ondansetron HCl (Zofran Injection) 4 mg IVPUSH Q6H PRN PRN Reason: NAUSEA AND/OR VOMITING Oxycodone HCl (Roxicodone -) 5 mg PO Q4H PRN PRN Reason: PAIN LEVEL 1-5 Stop: 09/05/18 17:07 Polyethylene Glycol (Miralax (For Daily Use) -) 17 gm PO BID [facility] Last Admin: 09/05/18 09:18 Dose: Not Given Promethazine HCl (Phenergan Injection -) 12.5 mg IVPUSH Q6H PRN PRN Reason: NAUSEA-FOR RESCUE AFTER 15 MIN Senna (Senna -) 1 tab PO BID [facility] Last Admin: 09/05/18 09:18 Dose: 1 tab - Objective Vital Signs: Vital Signs Temperature 98.2 F 09/05/18 06:00 Pulse Rate 69 09/05/18 06:00 Respiratory Rate 20 09/05/18 06:00 Blood Pressure 152/68 09/05/18 06:00 O2 Sat by Pulse Oximetry (%) 100 09/04/18 21:00 Eyes: Yes: WNL, Conjunctiva Clear, EOM Intact HENT: Yes: WNL, Atraumatic, Normocephalic Neck: Yes: WNL, Supple, Trachea Midline Cardiovascular: Yes: WNL, Regular Rate and Rhythm Respiratory: Yes: WNL, Regular, CTA Bilaterally Gastrointestinal: Yes: WNL, Normal Bowel Sounds Genitourinary: Yes: WNL Musculoskeletal: Yes: WNL Extremities: Yes: Amputation Edema: No Integumentary: Yes: WNL Neurological: Yes: WNL, Alert, Oriented ...Motor Strength: WNL Psychiatric: Yes: WNL Labs: CBC, BMP 09/05/18 06:00 09/05/18 06:00 INR, PTT INR 1.43 (0.83-1.09) H 08/23/18 21:30 Problem List - Problems (1) Leukocytosis Code(s): D72.829 - ELEVATED WHITE BLOOD CELL COUNT, UNSPECIFIED (2) Lower limb ischemia Code(s): I99.8 - OTHER DISORDER OF CIRCULATORY SYSTEM Assessment/Plan - Problems (1) Gangrene of toe of right foot Assessment/Plan: s/p right BKA. f/u with surgeon. Code(s): I96 - GANGRENE, NOT ELSEWHERE CLASSIFIED (2) Hyperlipidemia Assessment/Plan: On atorvastatin; total cholesterol is <100 mg/dL. Code(s): E78.5 - HYPERLIPIDEMIA, UNSPECIFIED (3) HTN (hypertension) Assessment/Plan: on losartan, HCTZ, and amlodipine; f/u BP SERIALLY. Code(s): I10 - ESSENTIAL (PRIMARY) HYPERTENSION (4) Leukocytosis Code(s): D72.829 - ELEVATED WHITE BLOOD CELL COUNT, UNSPECIFIED (5) Diastolic CHF Assessment/Plan: ECHO: normal LVEF: abnormal diastolic compliance; mild-moderate TR. On losartan. Rising BUN; avoid dehydration. F/u BUN/Cr, eectrolytes, daily weight, Is and Os. Code(s): I50.30 - UNSPECIFIED DIASTOLIC (CONGESTIVE) HEART FAILURE
--- NOTE | 2018-09-05 17:25 | PN ---
Teaching Attending Note Name of Resident: London Pope ATTENDING PHYSICIAN STATEMENT I saw and evaluated the patient. I reviewed the resident's note and discussed the case with the resident. I agree with the resident's findings and plan as documented with exceptions below. SUBJECTIVE: patient seen and examined. Right leg pain. No other complaints. OBJECTIVE: Vital Signs Period Temp Pulse Resp BP Sys/Reyes Pulse Ox Last 24 Hr 97.3 F-98.7 F 64-77 18-22 144-152/63-72 100-100 Intake & Output 09/02/18 09/03/18 09/04/18 09/05/18 23:59 23:59 23:59 23:59 Intake Total 1350 950 225 Output Total 250 100 575 130 Balance 1100 -100 375 95 General: sitting in bed in no acute distress Chest: decreased effort, no rales or wheezing Abdomen:Soft, NT, ND, positive bowel sounds, cholecystostomy tube in place Extremities: RLE BKA with dressing and immobilizer Home Medications Medication Instructions Recorded Amlodipine Besylate [Norvasc -] 10 mg PO DAILY tablet 08/31/18 Apixaban [Eliquis] 2.5 mg PO BID #30 tablet 08/31/18 Atorvastatin Ca [Lipitor] 40 mg PO HS tablet 08/31/18 Clopidogrel Bisulfate [Plavix] 75 mg PO DAILY #30 tablet 08/31/18 Docusate Sodium [Colace -] 100 mg PO BID capsule 08/31/18 Ferrous Sulfate 325 mg PO DAILY #30 tablet 08/31/18 Hydrochlorothiazide [Hctz -] 50 mg PO DAILY tablet 08/31/18 Insulin (Levemir) [Levemir Vial] 5 units SQ HS units 08/31/18 Insulin Sliding Scale [Novolog 1 vial SQ Q6H units 08/31/18 Vial Sliding Scale -] Losartan Potassium [Cozaar -] 100 mg PO DAILY tablet 08/31/18 Metoprolol Tartrate [Lopressor -] 12.5 mg PO BID tablet 08/31/18 Polyethylene Glycol 3350 [Miralax 17 gm PO BID bottle 08/31/18 119 gm Btl -] Sennosides [Senna -] 1 tab PO BID tablet 08/31/18 Active Medications Acetaminophen (Tylenol -) 325 mg PO Q4H PRN PRN Reason: PAIN LEVEL 7 - 10 Amlodipine Besylate (Norvasc -) 10 mg PO DAILY [facility] Last Admin: 09/05/18 09:18 Dose: 10 mg Atorvastatin Calcium (Lipitor -) 40 mg PO HS [facility] Last Admin: 09/04/18 21:25 Dose: 40 mg Docusate Sodium (Colace -) 100 mg PO BID [facility] Last Admin: 09/05/18 09:18 Dose: 100 mg Ferrous Sulfate (Feosol -) 325 mg PO DAILY [facility] Last Admin: 09/05/18 09:18 Dose: 325 mg Insulin Aspart (Novolog Vial Sliding Scale -) 1 vial SQ Q6H [facility]; Protocol Last Admin: 09/05/18 11:20 Dose: 4 units Insulin Detemir (Levemir Vial) 5 units SQ [facility] Last Admin: 09/04/18 21:26 Dose: 5 units Morphine Sulfate (Morphine Sulfate) 4 mg IVPUSH Q6H PRN PRN Reason: PAIN LEVEL 6-10 Last Admin: 09/05/18 17:07 Dose: 4 mg Ondansetron HCl (Zofran Injection) 4 mg IVPUSH Q6H PRN PRN Reason: NAUSEA AND/OR VOMITING Polyethylene Glycol (Miralax (For Daily Use) -) 17 gm PO BID [facility] Last Admin: 09/05/18 09:18 Dose: Not Given Promethazine HCl (Phenergan Injection -) 12.5 mg IVPUSH Q6H PRN PRN Reason: NAUSEA-FOR RESCUE AFTER 15 MIN Senna (Senna -) 1 tab PO BID [facility] Last Admin: 09/05/18 09:18 Dose: 1 tab Laboratory Results - last 24 hr 09/04/18 09/04/18 09/05/18 20:54 23:52 05:47 WBC RBC Hgb Hct MCV MCH MCHC RDW Plt Count MPV Sodium Potassium Chloride Carbon Dioxide Anion Gap BUN Creatinine Creat Clearance w eGFR POC Glucometer 231 206 134 Random Glucose Calcium Phosphorus Magnesium 09/05/18 09/05/18 09/05/18 06:00 06:00 11:18 WBC 10.8 H RBC 3.48 L Hgb 9.2 L Hct 29.3 L MCV 84.2 MCH 26.5 MCHC 31.4 L RDW 16.7 H Plt Count 276 D MPV 8.5 Sodium 137 Potassium 5.3 H Chloride 105 Carbon Dioxide 28 Anion Gap 5 L BUN 33 H Creatinine 1.0 Creat Clearance w eGFR 53.21 POC Glucometer 229 Random Glucose 128 H Calcium 8.4 L Phosphorus 5.2 H Magnesium 1.9 ASSESSMENT AND PLAN: 83 year old woman with a history of type 2 DM, HTN admitted for Right foot ischemia and found to have HTN urgency on presentation -Right foot ischemia with gangrene s/p angio with popliteal arter/SFA stent placement 08/08, s/p Right BKA 09/04 -Acute cholecystitis s/p Cholecystostomy tube placement 08/22, off abx -Pseudothrombocytopenia (From clumping, platelets to be sent in blue tube) -Mild hyperkalemia -HTN urgency -Constipation -Normocytic anemia -Poorly controlled DM A1c 9.4 -Asymptomatic bacteruria Plan: Doing well post op. Pain control with morphine/tylenol Encourage OOB, PT and incentive spirometry. Bowel regimen. Anticipate will not need plavix/full dose lovenox. Follow up with vascular surgery. IVF and kayexalate x 1. Hold losartan for now. Monitor K levels. Outpatient surgery follow for Right JAMEL drain removal. BP controlled. IV hydration given poor oral intake post op. Bowel regimen. s/p venofer, on iron daily. Repeat iron studies in 3 months. JOHN Price. Hold oral agents. DVTPPX per vascular surgery. PT светлана. Dispo planning in1-2 days. Plan discussed with patient and all questions answered.
--- NOTE | 2018-09-05 19:12 | PN ---
Physical Exam: NOTE FOR 09/04/2018 SUBJECTIVE: Patient seen and examined at bedside. Scheduled for BKA with Dr Cates. No acute events overnight. OBJECTIVE: Vital Signs Period Temp Pulse Resp BP Sys/Reyes Pulse Ox Last 24 Hr 97.3 F-98.8 F 64-79 18-22 144-155/63-78 100-100 GENERAL: Awake NAD HEAD: NC/AT EYES: EOMI conjunctiva clear LUNGS: Dec Breath sounds at bases, poor inspiratory effort HEART: No MRG S1S2 RRR ABDOMEN: Cholecystostomy tube draining NDNT EXTREMITIES: No pulses palpable in R foot. Foot cool to touch, Sensation absent distally Laboratory Results - last 24 hr 09/04/18 09/04/18 09/05/18 20:54 23:52 05:47 WBC RBC Hgb Hct MCV MCH MCHC RDW Plt Count MPV Sodium Potassium Chloride Carbon Dioxide Anion Gap BUN Creatinine Creat Clearance w eGFR POC Glucometer 231 206 134 Random Glucose Calcium Phosphorus Magnesium 09/05/18 09/05/18 09/05/18 06:00 06:00 11:18 WBC 10.8 H RBC 3.48 L Hgb 9.2 L Hct 29.3 L MCV 84.2 MCH 26.5 MCHC 31.4 L RDW 16.7 H Plt Count 276 D MPV 8.5 Sodium 137 Potassium 5.3 H Chloride 105 Carbon Dioxide 28 Anion Gap 5 L BUN 33 H Creatinine 1.0 Creat Clearance w eGFR 53.21 POC Glucometer 229 Random Glucose 128 H Calcium 8.4 L Phosphorus 5.2 H Magnesium 1.9 ASSESSMENT/PLAN: This is an 83 year old woman with a history of type 2 DM, HTN who presented to the ED with right foot pain. 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 -08/24/18 Pt has reconsidered surgical intervention. Dr Yusuf contacted and will speak to family. -Cardiology on board. BKA tomorrow. Cardiology, Dr Mcgrath on board. Pt now medically clear for surgery. Lexiscan MIBI stress test--> LVEF 68% -BKAshley Today w/ Dr Cates. -Plavix withheld in light of surgery # Cholecystitis s/p perc Cholecystostomy tube insertion -S/P Percutaneous IR Guided Cholecystostomy w/ Dr Chase -ID On Board #Normocytic Anemia Ferrous Sulfate Daily # HTN - Norvasc 10 mg -Losartan to 100 #. Type 2 DM - Metformin, Januvia held - Continue Novolog sliding scale #FEN No Fluids Monitor electrolytes NPO DVT ppx: Lovenox withheld for surgery Dispo: Med-Surg Visit type - Emergency Visit Emergency Visit: Yes ED Registration Date: 08/07/18 Care time: The patient presented to the Emergency Department on the above date and was hospitalized for further evaluation of their emergent condition. - New Patient This patient is new to me today: No - Critical Care Critical Care patient: No - Discharge Referral Referred to [facility] Med P.C.: No
--- NOTE | 2018-09-05 19:26 | PN ---
Physical Exam: SUBJECTIVE: Patient seen and examined at bedside. POD#1 BKA. Resting in bed comfortably. OBJECTIVE: Vital Signs Period Temp Pulse Resp BP Sys/Reyes Pulse Ox Last 24 Hr 97.3 F-98.8 F 64-79 18-22 144-155/63-78 100-100 GENERAL: NAD HEAD: Normal with no signs of trauma. EYES:EOMI No Scleral icterus, Conjunctiva clear ENT: MMM NECK: Trachea midline, full range of motion, supple. LUNGS: CTA B/L No rales rhonchi or wheezing HEART: RRR No MRG S1S2 ABDOMEN: NDNT, JAMEL Drain in place draining. EXTREMITIES: RLE BKA. Surgical bandage intact. SKIN: No rashes or lesions appreciated Laboratory Results - last 24 hr 09/04/18 09/04/18 09/05/18 20:54 23:52 05:47 WBC RBC Hgb Hct MCV MCH MCHC RDW Plt Count MPV Sodium Potassium Chloride Carbon Dioxide Anion Gap BUN Creatinine Creat Clearance w eGFR POC Glucometer 231 206 134 Random Glucose Calcium Phosphorus Magnesium 09/05/18 09/05/18 09/05/18 06:00 06:00 11:18 WBC 10.8 H RBC 3.48 L Hgb 9.2 L Hct 29.3 L MCV 84.2 MCH 26.5 MCHC 31.4 L RDW 16.7 H Plt Count 276 D MPV 8.5 Sodium 137 Potassium 5.3 H Chloride 105 Carbon Dioxide 28 Anion Gap 5 L BUN 33 H Creatinine 1.0 Creat Clearance w eGFR 53.21 POC Glucometer 229 Random Glucose 128 H Calcium 8.4 L Phosphorus 5.2 H Magnesium 1.9 Active Medications Generic Name Dose Route Start Last Admin Trade Name Freq PRN Reason Stop Dose Admin Acetaminophen 325 mg 09/04/18 16:35 Tylenol - PO Q4H PRN PAIN LEVEL 7 - 10 Amlodipine Besylate 10 mg 09/05/18 10:00 09/05/18 09:18 Norvasc - PO 10 mg DAILY FLYNN Administration Atorvastatin Calcium 40 mg 09/04/18 22:00 09/04/18 21:25 Lipitor - PO 40 mg HS FLYNN Administration Docusate Sodium 100 mg 09/04/18 22:00 09/05/18 09:18 Colace - PO 100 mg BID FLYNN Administration Ferrous Sulfate 325 mg 09/05/18 10:00 09/05/18 09:18 Feosol - PO 325 mg DAILY FLYNN Administration Insulin Aspart 1 vial 09/04/18 18:00 09/05/18 17:41 Novolog Vial Sliding Scale - SQ Not Given Q6H [facility] Protocol Insulin Detemir 5 units 09/04/18 22:00 09/04/18 21:26 Levemir Vial SQ 5 units HS FLYNN Administration Morphine Sulfate 4 mg 09/04/18 16:11 09/05/18 17:07 Morphine Sulfate IVPUSH 4 mg Q6H PRN Administration PAIN LEVEL 6-10 Ondansetron HCl 4 mg 09/04/18 17:08 Zofran Injection IVPUSH Q6H PRN NAUSEA AND/OR VOMITING Polyethylene Glycol 17 gm 09/04/18 22:00 09/05/18 09:18 Miralax (For Daily Use) - PO Not Given BID FLYNN Promethazine HCl 12.5 mg 09/04/18 17:08 Phenergan Injection - IVPUSH Q6H PRN NAUSEA-FOR RESCUE AFTER 15 MIN Senna 1 tab 09/04/18 22:00 09/05/18 09:18 Senna - PO 1 tab BID FLYNN Administration ASSESSMENT/PLAN: This is an 83 year old woman with a history of type 2 DM, HTN who presented to the ED with right foot pain. 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 -08/24/18 Pt has reconsidered surgical intervention. Dr Yusuf contacted and will speak to family. -Cardiology on board. BKA tomorrow. Cardiology, Dr Mcgrath on board. Pt now medically clear for surgery. Lexiscan MIBI stress test--> LVEF 68% POD#1 BKA. - PT unable to be performed due to pt's severe pain. # Cholecystitis s/p perc Cholecystostomy tube insertion -S/P Percutaneous IR Guided Cholecystostomy w/ Dr Chase -ID On Board #Normocytic Anemia Ferrous Sulfate Daily # HTN - Norvasc 10 mg Daily -Losartan Held due to pt's hyperkalemia -Kayexelate given in light of Potassium of 5.3 this am #. Type 2 DM - Metformin, Januvia held - Continue Novolog sliding scale #FEN No Fluids Monitor electrolytes Diabetic/Sodium Controlled Diet DVT ppx: D/C Plavix and Lovenox Dispo: Med-Surg Visit type - Emergency Visit Emergency Visit: Yes ED Registration Date: 08/07/18 Care time: The patient presented to the Emergency Department on the above date and was hospitalized for further evaluation of their emergent condition. - New Patient This patient is new to me today: No - Critical Care Critical Care patient: No - Discharge Referral Referred to [facility] Med P.C.: No
[2018-09-05] MEDS ORDERED: INSULIN (NOVOLOG) ASPART 100 UNITS/ML 10ML VIAL ONE (20:29)
[2018-09-05] MEDS: ATORVASTATIN CA 40 MG TABLET (FP) PO SCH (21:15)
[2018-09-05] MEDS: INSULIN (LEVEMIR) 100 UNITS/ML UNITS SQ SCH (21:15)
[2018-09-06] MEDS: morphine SULFATE 4 MG/ML VIAL IVPUSH PRN (00:40)
[2018-09-06] MEDS: INSULIN SLIDING SCALE (NOVOLOG) 1 VIAL SQ SCH ×5 (01:09→23:05)
[2018-09-06] MEDS ORDERED: ACETAMINOPHEN 325 MG TABLET (FP) PO ONE (05:41)
[2018-09-06] MEDS: ACETAMINOPHEN 325 MG TABLET (FP) PO PRN ×2 (05:49→22:21)
[2018-09-06 08:08] LABS: HEMATOCRIT 27.7 % (32.4-45.2); HEMOGLOBIN 8.8 GM/dL (10.7-15.3); MCH 26.6 pg (25.7-33.7); MCHC 31.6 g/dl (32.0-36.0); MEAN CELL VOLUME 84.1 fl (80-96); MEAN PLT VOLUME 8.5 fl (7.5-11.1); PLATELET COUNT 258 K/MM3 (134-434); RDW 16.8 % (11.6-15.6); WHITE BLOOD COUNT 9.3 K/mm3 (4.0-10.0)
[2018-09-06 08:10] LABS: ANION GAP 9 MMOL/L (8-16); BLOOD UREA NITROGEN 19 mg/dL (7-18); CALCIUM 8.2 mg/dL (8.5-10.1); CHLORIDE 102 mmol/L (98-107); CO2 27 mmol/L (21-32); CREATININE 0.6 mg/dL (0.55-1.3); GLUCOSE,RANDOM 137 mg/dL (74-106); MAGNESIUM 1.7 mg/dL (1.8-2.4); PHOSPHOROUS 3.5 mg/dL (2.5-4.9); POTASSIUM 3.7 mmol/L (3.5-5.1); SODIUM 139 mmol/L (136-145)
--- NOTE | 2018-09-06 08:18 | PN ---
Teaching Attending Note Name of Resident: London Pope ATTENDING PHYSICIAN STATEMENT I saw and evaluated the patient. I reviewed the resident's note and discussed the case with the resident. I agree with the resident's findings and plan as documented with exceptions below. SUBJECTIVE: Patient seen and examined. Right stump pain. No complaints otherwise. OBJECTIVE: Vital Signs Period Temp Pulse Resp BP Sys/Reyes Pulse Ox Last 24 Hr 98.7 F-100.6 F 77-90 20-22 144-170/63-82 89-100 Intake & Output 09/03/18 09/04/18 09/05/18 09/06/18 23:59 23:59 23:59 23:59 Intake Total 950 1175 Output Total 100 575 130 300 Balance -829 506 6686 -300 General: sitting in bed in no acute distress chest: decreased effort, no rales or wheezing appreciated Abdomen: soft, NT, ND Extremities: right BKA stump with dressing, further exam deferred Active Medications Acetaminophen (Tylenol -) 325 mg PO Q4H PRN PRN Reason: PAIN LEVEL 7 - 10 Last Admin: 09/06/18 05:49 Dose: 325 mg Amlodipine Besylate (Norvasc -) 10 mg PO DAILY [facility] Last Admin: 09/05/18 09:18 Dose: 10 mg Atorvastatin Calcium (Lipitor -) 40 mg PO HS [facility] Last Admin: 09/05/18 21:15 Dose: 40 mg Docusate Sodium (Colace -) 100 mg PO BID [facility] Last Admin: 09/05/18 21:15 Dose: 100 mg Enoxaparin Sodium (Lovenox -) 40 mg SQ DAILY [facility] Ferrous Sulfate (Feosol -) 325 mg PO DAILY [facility] Last Admin: 09/05/18 09:18 Dose: 325 mg Insulin Aspart (Novolog Vial Sliding Scale -) 1 vial SQ Q6H [facility]; Protocol Last Admin: 09/06/18 06:15 Dose: 2 units Insulin Detemir (Levemir Vial) 5 units SQ [facility] Last Admin: 09/05/18 21:15 Dose: 5 units Magnesium Oxide (Mag-Ox -) 800 mg PO DAILY [facility] Stop: 09/10/18 10:01 Ondansetron HCl (Zofran Injection) 4 mg IVPUSH Q6H PRN PRN Reason: NAUSEA AND/OR VOMITING Oxycodone HCl (Roxicodone -) 5 mg PO Q4H PRN PRN Reason: PAIN LEVEL 6-10 Polyethylene Glycol (Miralax (For Daily Use) -) 17 gm PO BID [facility] Last Admin: 09/05/18 21:15 Dose: 17 gm Promethazine HCl (Phenergan Injection -) 12.5 mg IVPUSH Q6H PRN PRN Reason: NAUSEA-FOR RESCUE AFTER 15 MIN Senna (Senna -) 1 tab PO BID [facility] Last Admin: 09/05/18 21:15 Dose: 1 tab Laboratory Results - last 24 hr 09/05/18 09/05/18 09/05/18 06:00 11:18 21:21 WBC 10.8 H RBC 3.48 L Hgb 9.2 L Hct 29.3 L MCV 84.2 MCH 26.5 MCHC 31.4 L RDW 16.7 H Plt Count 276 D MPV 8.5 Sodium Potassium Chloride Carbon Dioxide Anion Gap BUN Creatinine Creat Clearance w eGFR POC Glucometer 229 171 Random Glucose Calcium Phosphorus Magnesium 09/06/18 09/06/18 05:48 06:30 WBC RBC Hgb Hct MCV MCH MCHC RDW Plt Count MPV Sodium 139 Potassium 3.7 Chloride 102 Carbon Dioxide 27 Anion Gap 9 BUN 19 H Creatinine 0.6 Creat Clearance w eGFR > 60 POC Glucometer 183 Random Glucose 137 H Calcium 8.2 L Phosphorus 3.5 Magnesium 1.7 L Microbiology 08/22/18 15:45 Cholecystectomy Fluid Gram Stain - Final 08/22/18 15:45 Cholecystectomy Fluid Body Fluid Culture - Final NO GROWTH OF AEROBIC ORGANISMS AFTER 48 HOURS INCUBATION 08/22/18 15:45 Cholecystectomy Fluid Anaerobic Culture - Final NO ANAEROBES WERE ISOLATED 08/17/18 12:10 Blood - Peripheral Venous Blood Culture - Final NO GROWTH AFTER 5 DAYS INCUBATION 08/17/18 11:50 Blood - Peripheral Venous Blood Culture - Final NO GROWTH AFTER 5 DAYS INCUBATION 08/07/18 14:55 Blood - Peripheral Venous Blood Culture - Final NO GROWTH AFTER 5 DAYS INCUBATION 08/07/18 13:15 Blood - Peripheral Venous Blood Culture - Final NO GROWTH AFTER 5 DAYS INCUBATION 08/07/18 14:06 Urine - Urine Clean Catch Urine Culture - Final Lactobacillus Species ASSESSMENT AND PLAN: 83 year old woman with a history of type 2 DM, HTN admitted for Right foot ischemia and found to have HTN urgency on presentation -Right foot ischemia with gangrene s/p angio with popliteal arter/SFA stent placement 08/08, 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 d/c morphine. start oxycodone with tylenol prn for pain control. Encourage OOB, PT and incentive spirometry. Bowel regimen. Discussed with Dr. Cates, no need for plavix/full dose anticoagulation Will start lovenox 40 mg daily prophylactic dose. hyperkalemia resolved. replete Mg. resume losartan with HCTZ today and Monitor K levels. Continue amlodipine. Outpatient surgery follow for Right JAMEL drain removal. d/c IVF. Bowel regimen. s/p venofer, on iron daily. Repeat iron studies in 3 months. JOHN Price. Hold oral agents. DVTPPX per vascular surgery. PT eval. Psychology input, ?patient depressed, not motivated to move and work with PT. Dispo PT eval, anticipate SNF in 24-48 hours if no events. Plan discussed with patient and all questions answered.
[2018-09-06] MEDS: HYDROCHLOROTHIAZIDE 25 MG TABLET (FP) PO SCH ×2 (09:22→21:15)
[2018-09-06] MEDS: ENOXAPARIN NA (PORCINE) 40 MG/0.4 ML DISP.SYRIN SQ SCH (09:23)
[2018-09-06] MEDS: DOCUSATE SODIUM 100 MG CAPSULE (FP) PO SCH ×2 (09:23→22:23)
[2018-09-06] MEDS: POLYETHYLENE GLYCOL 3350 119 GM BTL PO SCH ×2 (09:23→22:23)
[2018-09-06] MEDS: FERROUS SO4 325 MG TABLET (FP) PO SCH (09:23)
[2018-09-06] MEDS: MAGNESIUM OXIDE 400 MG TABLET (FP) PO SCH (09:23)
[2018-09-06] MEDS: SENNOSIDES 8.6MG TABLET (FP) PO SCH ×2 (09:23→22:22)
[2018-09-06] MEDS: LOSARTAN POTASSIUM 50 MG TABLET (FP) PO SCH (09:23)
[2018-09-06] MEDS: amLODIPine BESYLATE 10 MG TABLET (FP) PO SCH (09:23)
[2018-09-06] MEDS: oxyCODONE HCL 5 MG TABLET PO PRN ×3 (09:37→22:22)
[2018-09-06 13:00] LABS: URINE APPEARANCE SLCLOUDY; URINE BILIRUBIN NEGATIVE (<2.0 mg/dL); URINE COLOR YELLOW; URINE GLUCOSE (UA) NEGATIVE (NEGATIVE); URINE KETONE TRACE (NEGATIVE); URINE LEUK ESTERASE NEGATIVE (NEGATIVE); URINE NITRITE NEGATIVE (NEGATIVE); URINE PROTEIN NEGATIVE (NEGATIVE); URINE UROBILINOGEN NEGATIVE mg/dL (0.2-1.0)
--- NOTE | 2018-09-06 16:27 | PATH ---
Surgical Pathology Report Patient Name: CRISTI NASCIMENTO [facility]. Rec. #: [id number] /Age/Gender: 1935 (Age: 83) / F Account: [id number] Location: [address] [place] [address] Taken: 09/04/2018 Received: 09/05/2018 Reported: 09/06/2018 Physicians: William Brizuela M.D. Specimen(s) Received RIGHT BELOW THE KNEE Clinical History Gangrene right foot Final Diagnosis LOWER LEG, BELOW THE KNEE AMPUTATION: DISTAL FOOT WITH MARKED ACUTE INFLAMMATION AND GANGRENOUS NECROSIS. UNDERLYING BONE WITH ACUTE OSTEOMYELITIS. MODERATE TO SEVERE CALCIFIC ATHEROSCLEROSIS INVOLVING ANTERIOR AND POSTERIOR TIBIAL ARTERIES. SURGICAL MARGINS ARE VIABLE. Electronically Signed Maeve Zavala M.D. Gross Description Received fresh labeled with the patient's name and indicated on the requisition to be a right below the knee amputation, is a 25 cm in length romano below the knee amputation. The foot measures 23.5 cm from heel to toe. There is a 6 cm in length exposed portion of tibia and a 4 cm in length exposed portion of fibula at the proximal aspect of the specimen. The distal foot, including all 5 digits, displays a black, gangrenous lesion involving the underlying bone. Sectioning of the vasculature reveals focal, segmental, moderate to severe atherosclerosis. Loop Drier Operator sections are submitted in 6 cassettes as follows: 1-skin and soft tissue margin; 2-bone marrow from margin, following decalcification; 3-lesion with underlying bone, following decalcification; 4-anterior tibial artery, following decalcification; 5-posterior tibial artery, following decalcification; 6-dorsalis pedis. /09/05/2018 [facility]09/05/2018
--- NOTE | 2018-09-06 18:28 | PN ---
Physical Exam: SUBJECTIVE: Patient seen and examined at bedside. Spiked fever of 100.6 overnight. Resting in bed comfortably. Endorses R stump pain. OBJECTIVE: Vital Signs Period Temp Pulse Resp BP Sys/Reyes Pulse Ox Last 24 Hr 99.8 F-100.6 F 80-90 18-22 150-170/63-82 89-96 GENERAL: NAD Awake Alert HEAD: Normal with no signs of trauma. EYES:EOMI No Scleral icterus, Conjunctiva clear ENT: MMM NECK: Trachea midline, full range of motion, supple. LUNGS: CTA B/L HEART: RRR No MRG S1S2 ABDOMEN: NDNT, JAMEL intact and draining well. No signs of infection . EXTREMITIES: RLE BKA with dressing in place. SKIN: No rashes or lesions appreciated Laboratory Results - last 24 hr 09/05/18 09/06/18 09/06/18 21:21 05:48 06:30 WBC 9.3 RBC 3.30 L Hgb 8.8 L Hct 27.7 L MCV 84.1 MCH 26.6 MCHC 31.6 L RDW 16.8 H Plt Count 258 MPV 8.5 Sodium Potassium Chloride Carbon Dioxide Anion Gap BUN Creatinine Creat Clearance w eGFR POC Glucometer 171 183 Random Glucose Calcium Phosphorus Magnesium Urine Color Urine Appearance Urine pH Ur Specific [place] Urine Protein Urine Glucose (UA) Urine Ketones Urine Blood Urine Nitrite Urine Bilirubin Urine Urobilinogen Ur Leukocyte Esterase Stool Occult Blood 09/06/18 09/06/18 09/06/18 06:30 11:32 11:40 WBC RBC Hgb Hct MCV MCH MCHC RDW Plt Count MPV Sodium 139 Potassium 3.7 Chloride 102 Carbon Dioxide 27 Anion Gap 9 BUN 19 H Creatinine 0.6 Creat Clearance w eGFR > 60 POC Glucometer 170 Random Glucose 137 H Calcium 8.2 L Phosphorus 3.5 Magnesium 1.7 L Urine Color Yellow Urine Appearance Slcloudy Urine pH 5.0 Ur Specific [place] 1.021 Urine Protein Negative Urine Glucose (UA) Negative Urine Ketones Trace H Urine Blood Negative Urine Nitrite Negative Urine Bilirubin Negative Urine Urobilinogen Negative Ur Leukocyte Esterase Negative Stool Occult Blood 09/06/18 16:00 WBC RBC Hgb Hct MCV MCH MCHC RDW Plt Count MPV Sodium Potassium Chloride Carbon Dioxide Anion Gap BUN Creatinine Creat Clearance w eGFR POC Glucometer Random Glucose Calcium Phosphorus Magnesium Urine Color Urine Appearance Urine pH Ur Specific [place] Urine Protein Urine Glucose (UA) Urine Ketones Urine Blood Urine Nitrite Urine Bilirubin Urine Urobilinogen Ur Leukocyte Esterase Stool Occult Blood Negative Active Medications Generic Name Dose Route Start Last Admin Trade Name Lindenq PRN Reason Stop Dose Admin Acetaminophen 325 mg 09/04/18 16:35 09/06/18 05:49 Tylenol - PO 325 mg Q4H PRN Administration PAIN LEVEL 7 - 10 Amlodipine Besylate 10 mg 09/05/18 10:00 09/06/18 09:23 Norvasc - PO 10 mg DAILY [facility] Administration Atorvastatin Calcium 40 mg 09/04/18 22:00 09/05/18 21:15 Lipitor - PO 40 mg HS [facility] Administration Docusate Sodium 100 mg 09/04/18 22:00 09/06/18 09:23 Colace - PO 100 mg BID FLYNN Administration Enoxaparin Sodium 40 mg 09/06/18 10:00 09/06/18 09:23 Lovenox - SQ 40 mg DAILY [facility] Administration Ferrous Sulfate 325 mg 09/05/18 10:00 09/06/18 09:23 Feosol - PO 325 mg DAILY [facility] Administration Hydrochlorothiazide 50 mg 09/06/18 09:00 09/06/18 09:22 Hctz - PO 50 mg BID@0600,1800 [facility] Administration Insulin Aspart 1 vial 09/04/18 18:00 09/06/18 18:23 Novolog Vial Sliding Scale - SQ Not Given Q6H [facility] Protocol Insulin Detemir 5 units 09/04/18 22:00 09/05/18 21:15 Levemir Vial SQ 5 units HS [facility] Administration Losartan Potassium 100 mg 09/06/18 10:00 09/06/18 09:23 Cozaar - PO 100 mg DAILY [facility] Administration Magnesium Oxide 800 mg 09/06/18 10:00 09/06/18 09:23 Mag-Ox - PO 09/10/18 10:01 800 mg DAILY [facility] Administration Ondansetron HCl 4 mg 09/04/18 17:08 Zofran Injection IVPUSH Q6H PRN NAUSEA AND/OR VOMITING Oxycodone HCl 5 mg 09/06/18 08:13 09/06/18 14:29 Roxicodone - PO 5 mg Q4H PRN Administration PAIN LEVEL 6-10 Polyethylene Glycol 17 gm 09/04/18 22:00 09/06/18 09:23 Miralax (For Daily Use) - PO 17 gm BID FLYNN Administration Promethazine HCl 12.5 mg 09/04/18 17:08 Phenergan Injection - IVPUSH Q6H PRN NAUSEA-FOR RESCUE AFTER 15 MIN Senna 1 tab 09/04/18 22:00 09/06/18 09:23 Senna - PO 1 tab BID FLYNN Administration ASSESSMENT/PLAN: This is an 83 year old woman with a history of type 2 DM, HTN who presented to the ED with right foot pain. POD#2 BKA. - PT evaluated pt again today. Unable to tolerate exercise. Depression? Psychology input appreciated Spiked Fever 100.6 overnight. Blood cultures taken and pending. # Cholecystitis s/p perc Cholecystostomy tube insertion -S/P Percutaneous IR Guided Cholecystostomy w/ Dr Chase -ID On Board #Normocytic Anemia Ferrous Sulfate Daily # HTN - Norvasc 10 mg Daily -Losartan and HCTZ resumed #. Type 2 DM - Metformin, Januvia held - Continue Novolog sliding scale #FEN No Fluids Monitor electrolytes Diabetic/Sodium Controlled Diet DVT ppx: Lovenox 40 SQ Dispo: Med-Surg Visit type - Emergency Visit Emergency Visit: Yes ED Registration Date: 08/07/18 Care time: The patient presented to the Emergency Department on the above date and was hospitalized for further evaluation of their emergent condition. - New Patient This patient is new to me today: No - Critical Care Critical Care patient: No - Discharge Referral Referred to [facility] Med P.C.: No
[2018-09-06] MEDS: ATORVASTATIN CA 40 MG TABLET (FP) PO SCH (22:23)
[2018-09-06] MEDS: INSULIN (LEVEMIR) 100 UNITS/ML UNITS SQ SCH (22:31)
[2018-09-07 05:24] LABS: HEP.C VIRUS AB 0.2 s/co ratio (0.0-0.9)
[2018-09-07] MEDS: oxyCODONE HCL 5 MG TABLET PO PRN ×5 (06:42→23:37)
[2018-09-07] MEDS: ACETAMINOPHEN 325 MG TABLET (FP) PO PRN ×4 (06:42→19:02)
[2018-09-07] MEDS: HYDROCHLOROTHIAZIDE 25 MG TABLET (FP) PO SCH ×2 (06:42→19:03)
[2018-09-07] MEDS: INSULIN SLIDING SCALE (NOVOLOG) 1 VIAL SQ SCH ×3 (06:49→19:03)
[2018-09-07 07:20] LABS: HEMATOCRIT 27.9 % (32.4-45.2); MCHC 32.4 g/dl (32.0-36.0); MEAN CELL VOLUME 83.6 fl (80-96); MEAN PLT VOLUME 8.5 fl (7.5-11.1); PLATELET COUNT 250 K/MM3 (134-434); RBC 3.34 M/mm3 (3.60-5.2); RDW 16.4 % (11.6-15.6); WHITE BLOOD COUNT 9.8 K/mm3 (4.0-10.0)
[2018-09-07 07:23] LABS: ANION GAP 8 MMOL/L (8-16); BLOOD UREA NITROGEN 16 mg/dL (7-18); CALCIUM 8.7 mg/dL (8.5-10.1); CHLORIDE 97 mmol/L (98-107); CO2 30 mmol/L (21-32); CREATININE 0.6 mg/dL (0.55-1.3); GLUCOSE,RANDOM 139 mg/dL (74-106); MAGNESIUM 1.9 mg/dL (1.8-2.4); PHOSPHOROUS 3.6 mg/dL (2.5-4.9); POTASSIUM 3.9 mmol/L (3.5-5.1); SODIUM 135 mmol/L (136-145)
--- NOTE | 2018-09-07 10:20 | CON.PSL ---
Psychology Consult Consult Specialty:: Clinical Psychology History Provided By: Patient, Medical Record Limitations to Obtaining History: Clinical Condition (The patient was hesitant in responding to questions.) Current Medications: Active Medications Acetaminophen (Tylenol -) 325 mg PO Q4H PRN PRN Reason: PAIN LEVEL 7 - 10 Last Admin: 09/07/18 06:42 Dose: 325 mg Amlodipine Besylate (Norvasc -) 10 mg PO DAILY [facility] Last Admin: 09/06/18 09:23 Dose: 10 mg Atorvastatin Calcium (Lipitor -) 40 mg PO HS [facility] Last Admin: 09/06/18 22:23 Dose: 40 mg Docusate Sodium (Colace -) 100 mg PO BID [facility] Last Admin: 09/06/18 22:23 Dose: 100 mg Enoxaparin Sodium (Lovenox -) 40 mg SQ DAILY [facility] Last Admin: 09/06/18 09:23 Dose: 40 mg Ferrous Sulfate (Feosol -) 325 mg PO DAILY [facility] Last Admin: 09/06/18 09:23 Dose: 325 mg Hydrochlorothiazide (Hctz -) 50 mg PO BID@0600,1800 [facility] Last Admin: 09/07/18 06:42 Dose: 50 mg Insulin Aspart (Novolog Vial Sliding Scale -) 1 vial SQ Q6H [facility]; Protocol Last Admin: 09/07/18 06:49 Dose: 2 units Insulin Detemir (Levemir Vial) 5 units SQ [facility] Last Admin: 09/06/18 22:31 Dose: 5 units Losartan Potassium (Cozaar -) 100 mg PO DAILY [facility] Last Admin: 09/06/18 09:23 Dose: 100 mg Magnesium Oxide (Mag-Ox -) 800 mg PO DAILY [facility] Stop: 09/10/18 10:01 Last Admin: 09/06/18 09:23 Dose: 800 mg Ondansetron HCl (Zofran Injection) 4 mg IVPUSH Q6H PRN PRN Reason: NAUSEA AND/OR VOMITING Oxycodone HCl (Roxicodone -) 5 mg PO Q4H PRN PRN Reason: PAIN LEVEL 6-10 Last Admin: 09/07/18 06:42 Dose: 5 mg Polyethylene Glycol (Miralax (For Daily Use) -) 17 gm PO BID [facility] Last Admin: 09/06/18 22:23 Dose: 17 gm Promethazine HCl (Phenergan Injection -) 12.5 mg IVPUSH Q6H PRN PRN Reason: NAUSEA-FOR RESCUE AFTER 15 MIN Senna (Senna -) 1 tab PO BID [facility] Last Admin: 09/06/18 22:22 Dose: 1 tab Allergies: Allergies Allergy/AdvReac Type Severity Reaction Status Date / Time Penicillins Allergy Verified 08/07/18 12:35 Pain Location Body Site: Abdomen (She would not specify where her pain was but kept pointing to her abdomen.) Pain Description: Non-Descriptive Hx Alcohol Use: No Hx Substance Use: No Hx Substance Use Treatment: No - Family History Family History: Unable to Obtain Current Medical Exam-Psy Orientation: Time, Person, Place Immediate Term Memory: 10/04 Expressive: Delayed, Soft Receptive: Delayed Receptive Comprehension Hallucinations: Absent Thought Process: [place] Depression: Moderate (Although the patient denied depression, her afect was dysthymic.) Hopelessness: No (She denied being hopeless.) Loss of Interest: No (She would not specify areas of interest.) Danger to Self and Others: No Sleep: Well Appetite: Fair Serial Sevens Intact: No (She could not perform spelling world backwards.) Repeats 3 words told earlier: 0/3 Support System: Friend Leisure activities: Other (She did not indicate if she engaged in leisure acitivities.) Problem List - Problem (1) Depression Code(s): F32.9 - MAJOR DEPRESSIVE DISORDER, SINGLE EPISODE, UNSPECIFIED Qualifiers: Depression Type: reactive depression Qualified Code(s): F32.9 - Major depressive disorder, single episode, unspecified (2) Memory deficit Code(s): R41.3 - OTHER AMNESIA Assessment/Plan The patient was resistant to the clinical evaluation. She reluctantly responded to questions. It appeared that she was in pain related to a gall bladder excision. She did not appear to know what her other condition was at first when I asked her if she was here because of diabetes. Her memory was poor and she may be experiencing dementia. Her expressive and receptive language was delayed and her voice quality was soft and low. The patient was offered a behavioral pain intervention and was told that if she would agree to it to inform her nurse. A psychiatric evaluation with Dr. Morley for psychotropic consideration is suggested.
[2018-09-07] MEDS: SENNOSIDES 8.6MG TABLET (FP) PO SCH ×2 (10:32→21:44)
[2018-09-07] MEDS: POLYETHYLENE GLYCOL 3350 119 GM BTL PO SCH ×2 (10:32→21:48)
[2018-09-07] MEDS: DOCUSATE SODIUM 100 MG CAPSULE (FP) PO SCH ×2 (10:32→21:44)
[2018-09-07] MEDS: LOSARTAN POTASSIUM 50 MG TABLET (FP) PO SCH (10:33)
[2018-09-07] MEDS: MAGNESIUM OXIDE 400 MG TABLET (FP) PO SCH (10:33)
[2018-09-07] MEDS: FERROUS SO4 325 MG TABLET (FP) PO SCH (10:33)
[2018-09-07] MEDS: amLODIPine BESYLATE 10 MG TABLET (FP) PO SCH (10:33)
[2018-09-07] MEDS: ENOXAPARIN NA (PORCINE) 40 MG/0.4 ML DISP.SYRIN SQ SCH (10:34)
--- NOTE | 2018-09-07 12:38 | PN ---
Progress Note, Physician History of Present Illness: Patient is a 83 y/o female with a history of DM and HTN who presents for right foot pain. She described the pain as a burning, its starts in her foot and moves up to her knee. She rates it as 8/10. It is worse with touch and when she is walking. She has not found that anything makes it better, she has been trying to use icy hot but with no relief. The pain has been worsening for the last three weeks. Patient denies any recent trauma On july 23 patient followed up with her spice fumigator who cut her nails. Patient believes one of the nails was cut too short and that is when the pain began. On July 29 they went to the ED at [facility] in [place] for the pain. She had an Xray done and was told she had a fracture. She was given oxycodone, but only took one pill. Earlier today she saw her PCP who stated she needed to come to the Emergency room. Patient presented to [facility]. An ultrasound showed an extensive atherosclerotic plaque and abnormal flow in the right extremity. Determine patient needs a CTA so she was transferred to [place]. Patient reports he felt feverish over the weekend, but it resolves. She currently denies chest pain , SOB, nausea, headache, or blurry vision. 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 Patient is non compliant with her home medications. She is able to ambulate at home with a cane. - Current Medication List Current Medications: Active Medications Acetaminophen (Tylenol -) 325 mg PO Q4H PRN PRN Reason: PAIN LEVEL 7 - 10 Last Admin: 09/07/18 10:32 Dose: 325 mg Amlodipine Besylate (Norvasc -) 10 mg PO DAILY [facility] Last Admin: 09/07/18 10:33 Dose: 10 mg Atorvastatin Calcium (Lipitor -) 40 mg PO HS [facility] Last Admin: 09/06/18 22:23 Dose: 40 mg Docusate Sodium (Colace -) 100 mg PO BID [facility] Last Admin: 09/07/18 10:32 Dose: 100 mg Enoxaparin Sodium (Lovenox -) 40 mg SQ DAILY [facility] Last Admin: 09/07/18 10:34 Dose: 40 mg Ferrous Sulfate (Feosol -) 325 mg PO DAILY [facility] Last Admin: 09/07/18 10:33 Dose: 325 mg Hydrochlorothiazide (Hctz -) 50 mg PO BID@0600,1800 [facility] Last Admin: 09/07/18 06:42 Dose: 50 mg Insulin Aspart (Novolog Vial Sliding Scale -) 1 vial SQ Q6H [facility]; Protocol Last Admin: 09/07/18 12:27 Dose: 2 units Insulin Detemir (Levemir Vial) 5 units SQ [facility] Last Admin: 09/06/18 22:31 Dose: 5 units Losartan Potassium (Cozaar -) 100 mg PO DAILY [facility] Last Admin: 09/07/18 10:33 Dose: 100 mg Magnesium Oxide (Mag-Ox -) 800 mg PO DAILY [facility] Stop: 09/10/18 10:01 Last Admin: 09/07/18 10:33 Dose: 800 mg Ondansetron HCl (Zofran Injection) 4 mg IVPUSH Q6H PRN PRN Reason: NAUSEA AND/OR VOMITING Oxycodone HCl (Roxicodone -) 5 mg PO Q4H PRN PRN Reason: PAIN LEVEL 6-10 Last Admin: 09/07/18 10:33 Dose: 5 mg Polyethylene Glycol (Miralax (For Daily Use) -) 17 gm PO BID [facility] Last Admin: 09/07/18 10:32 Dose: 17 gm Promethazine HCl (Phenergan Injection -) 12.5 mg IVPUSH Q6H PRN PRN Reason: NAUSEA-FOR RESCUE AFTER 15 MIN Senna (Senna -) 1 tab PO BID [facility] Last Admin: 09/07/18 10:32 Dose: 1 tab - Objective Vital Signs: Vital Signs Temperature 99.1 F 09/07/18 09:00 Pulse Rate 95 H 09/07/18 09:00 Respiratory Rate 18 09/07/18 09:00 Blood Pressure 132/68 09/07/18 09:00 O2 Sat by Pulse Oximetry (%) 95 09/07/18 10:41 Eyes: Yes: WNL, Conjunctiva Clear, EOM Intact HENT: Yes: WNL, Atraumatic, Normocephalic Neck: Yes: WNL, Supple, Trachea Midline Cardiovascular: Yes: WNL, Regular Rate and Rhythm Respiratory: Yes: WNL, Regular, CTA Bilaterally Gastrointestinal: Yes: WNL, Normal Bowel Sounds Genitourinary: Yes: WNL Musculoskeletal: Yes: WNL Extremities: Yes: Amputation Edema: No Integumentary: Yes: WNL Neurological: Yes: WNL, Alert, Oriented ...Motor Strength: WNL Psychiatric: Yes: WNL Labs: CBC, BMP 09/07/18 06:00 09/07/18 06:00 INR, PTT INR 1.43 (0.83-1.09) H 08/23/18 21:30 Problem List - Problems (1) Leukocytosis Code(s): D72.829 - ELEVATED WHITE BLOOD CELL COUNT, UNSPECIFIED (2) Lower limb ischemia Code(s): I99.8 - OTHER DISORDER OF CIRCULATORY SYSTEM Assessment/Plan - Problems (1) Gangrene of toe of right foot Assessment/Plan: s/p right BKA. f/u with surgeon. Code(s): I96 - GANGRENE, NOT ELSEWHERE CLASSIFIED (2) Hyperlipidemia Assessment/Plan: On atorvastatin; total cholesterol is <100 mg/dL. Code(s): E78.5 - HYPERLIPIDEMIA, UNSPECIFIED (3) HTN (hypertension) Assessment/Plan: on losartan, HCTZ, and amlodipine; f/u BP SERIALLY. Code(s): I10 - ESSENTIAL (PRIMARY) HYPERTENSION (4) Leukocytosis Code(s): D72.829 - ELEVATED WHITE BLOOD CELL COUNT, UNSPECIFIED (5) Diastolic CHF Assessment/Plan: ECHO: normal LVEF: abnormal diastolic compliance; mild-moderate TR. On losartan. Rising BUN; avoid dehydration. F/u BUN/Cr, eectrolytes, daily weight, Is and Os. Code(s): I50.30 - UNSPECIFIED DIASTOLIC (CONGESTIVE) HEART FAILURE
--- NOTE | 2018-09-07 14:07 | PN ---
Progress Note (short form) - Note Progress Note: POD 3, s/p R BKA Pt seen this AM for dressing change. Knee immobilizer in place, removed. Dressing removed, incision clean, dry and intact, no erythema or drainage. Redressed with 4x4 and kacey wrap. Knee immobilizer fastened. Pain control PT for ROM Change dressing every other day (4x4/kacey)
--- NOTE | 2018-09-07 14:14 | PN ---
Physical Exam: SUBJECTIVE: Patient seen and examined t bedside. States she doesn't want to live anymore. OBJECTIVE: Vital Signs Period Temp Pulse Resp BP Sys/Reyes Pulse Ox Last 24 Hr 98.6 F-101.3 F 84-97 18-22 132-157/68-79 95-96 GENERAL: Doesn't respond to questioning. Somber HEAD: NC/CT EYES: EOMI ENT: MMM membranes. NECK: Trachea midline, full range of motion, supple. LUNGS: CTA B/L Anteriorly HEART: RRR No MRG appreciated ABDOMEN: Soft, NDNT R JAMEL Drain in place EXTREMITIES: Right lower extremity brace in place. Laboratory Results - last 24 hr 09/06/18 09/06/18 09/06/18 12:40 12:40 16:00 WBC RBC Hgb Hct MCV MCH MCHC RDW Plt Count MPV Sodium Potassium Chloride Carbon Dioxide Anion Gap BUN Creatinine Creat Clearance w eGFR POC Glucometer Random Glucose Calcium Phosphorus Magnesium Stool Occult Blood Negative Hepatitis A IgM Ab Negative Hep Bs Antigen Negative Hep B Core IgM Ab Negative Hepatitis Be Antigen Negative Hepatitis C Antibody 0.2 HIV Genotype Non reactive 09/06/18 09/07/18 09/07/18 22:26 06:00 06:00 WBC 9.8 RBC 3.34 L Hgb 9.0 L Hct 27.9 L MCV 83.6 MCH 27.0 MCHC 32.4 RDW 16.4 H Plt Count 250 MPV 8.5 Sodium 135 L Potassium 3.9 Chloride 97 L Carbon Dioxide 30 Anion Gap 8 BUN 16 Creatinine 0.6 Creat Clearance w eGFR > 60 POC Glucometer 183 Random Glucose 139 H Calcium 8.7 Phosphorus 3.6 Magnesium 1.9 Stool Occult Blood Hepatitis A IgM Ab Hep Bs Antigen Hep B Core IgM Ab Hepatitis Be Antigen Hepatitis C Antibody HIV Genotype 09/07/18 09/07/18 06:48 12:26 WBC RBC Hgb Hct MCV MCH MCHC RDW Plt Count MPV Sodium Potassium Chloride Carbon Dioxide Anion Gap BUN Creatinine Creat Clearance w eGFR POC Glucometer 160 164 Random Glucose Calcium Phosphorus Magnesium Stool Occult Blood Hepatitis A IgM Ab Hep Bs Antigen Hep B Core IgM Ab Hepatitis Be Antigen Hepatitis C Antibody HIV Genotype Active Medications Generic Name Dose Route Start Last Admin Trade Name Freq PRN Reason Stop Dose Admin Acetaminophen 325 mg 09/04/18 16:35 09/07/18 10:32 Tylenol - PO 325 mg Q4H PRN Administration PAIN LEVEL 7 - 10 Amlodipine Besylate 10 mg 09/05/18 10:00 09/07/18 10:33 Norvasc - PO 10 mg DAILY [facility] Administration Atorvastatin Calcium 40 mg 09/04/18 22:00 09/06/18 22:23 Lipitor - PO 40 mg HS [facility] Administration Docusate Sodium 100 mg 09/04/18 22:00 09/07/18 10:32 Colace - PO 100 mg BID [facility] Administration Enoxaparin Sodium 40 mg 09/06/18 10:00 09/07/18 10:34 Lovenox - SQ 40 mg DAILY [facility] Administration Ferrous Sulfate 325 mg 09/05/18 10:00 09/07/18 10:33 Feosol - PO 325 mg DAILY [facility] Administration Hydrochlorothiazide 50 mg 09/06/18 09:00 09/07/18 06:42 Hctz - PO 50 mg BID@0600,1800 [facility] Administration Insulin Aspart 1 vial 09/04/18 18:00 09/07/18 12:27 Novolog Vial Sliding Scale - SQ 2 units Q6H [facility] Administration Protocol Insulin Detemir 5 units 09/04/18 22:00 09/06/18 22:31 Levemir Vial SQ 5 units HS [facility] Administration Losartan Potassium 100 mg 09/06/18 10:00 09/07/18 10:33 Cozaar - PO 100 mg DAILY [facility] Administration Magnesium Oxide 800 mg 09/06/18 10:00 09/07/18 10:33 Mag-Ox - PO 09/10/18 10:01 800 mg DAILY [facility] Administration Ondansetron HCl 4 mg 09/04/18 17:08 Zofran Injection IVPUSH Q6H PRN NAUSEA AND/OR VOMITING Oxycodone HCl 5 mg 09/06/18 08:13 09/07/18 10:33 Roxicodone - PO 5 mg Q4H PRN Administration PAIN LEVEL 6-10 Polyethylene Glycol 17 gm 09/04/18 22:00 09/07/18 10:32 Miralax (For Daily Use) - PO 17 gm BID [facility] Administration Promethazine HCl 12.5 mg 09/04/18 17:08 Phenergan Injection - IVPUSH Q6H PRN NAUSEA-FOR RESCUE AFTER 15 MIN Senna 1 tab 09/04/18 22:00 09/07/18 10:32 Senna - PO 1 tab BID [facility] Administration ASSESSMENT/PLAN: This is an 83 year old woman with a history of type 2 DM, HTN who presented to the ED with right foot pain. POD#3 BKA. No Post-Op complications. Depression? Psychiatry evaluated pt this afternoon. Recommended Cymbalta 20 QD. # Cholecystitis s/p perc Cholecystostomy tube insertion -S/P Percutaneous IR Guided Cholecystostomy w/ Dr Chase -ID On Board #Normocytic Anemia Ferrous Sulfate Daily # HTN - Norvasc 10 mg Daily -Losartan and HCTZ #. Type 2 DM - Metformin, Januvia held - Continue Novolog sliding scale #FEN No Fluids Monitor electrolytes Diabetic/Sodium Controlled Diet DVT ppx: Lovenox 40 SQ Dispo: Med-Surg Visit type - Emergency Visit Emergency Visit: Yes ED Registration Date: 08/07/18 Care time: The patient presented to the Emergency Department on the above date and was hospitalized for further evaluation of their emergent condition. - New Patient This patient is new to me today: No - Critical Care Critical Care patient: No - Discharge Referral Referred to [facility] Med P.C.: No
--- NOTE | 2018-09-07 17:22 | CON.PSY ---
Psychiatry Consult Chief Complaint: Patient seem depresed afdter Amputation. Symptoms: reports: Depressed Mood - Previous Psychiatric Treatment Outpatient: None Inpatient: None - Previous Substance Abuse Treatment Outpatient: None Inpatient: None - Reason for Previous Treatment Reason for Previous Treatment: Major Depression - Current Medications Current Medications: Active Medications Acetaminophen (Tylenol -) 325 mg PO Q4H PRN PRN Reason: PAIN LEVEL 7 - 10 Last Admin: 09/07/18 15:18 Dose: 325 mg Amlodipine Besylate (Norvasc -) 10 mg PO DAILY [facility] Last Admin: 09/07/18 10:33 Dose: 10 mg Atorvastatin Calcium (Lipitor -) 40 mg PO HS [facility] Last Admin: 09/06/18 22:23 Dose: 40 mg Docusate Sodium (Colace -) 100 mg PO BID [facility] Last Admin: 09/07/18 10:32 Dose: 100 mg Duloxetine HCl (Cymbalta -) 20 mg PO DAILY [facility] Enoxaparin Sodium (Lovenox -) 40 mg SQ DAILY [facility] Last Admin: 09/07/18 10:34 Dose: 40 mg Ferrous Sulfate (Feosol -) 325 mg PO DAILY [facility] Last Admin: 09/07/18 10:33 Dose: 325 mg Hydrochlorothiazide (Hctz -) 50 mg PO BID@0600,1800 [facility] Last Admin: 09/07/18 06:42 Dose: 50 mg Insulin Aspart (Novolog Vial Sliding Scale -) 1 vial SQ Q6H [facility]; Protocol Last Admin: 09/07/18 12:27 Dose: 2 units Insulin Detemir (Levemir Vial) 5 units SQ [facility] Last Admin: 09/06/18 22:31 Dose: 5 units Losartan Potassium (Cozaar -) 100 mg PO DAILY [facility] Last Admin: 09/07/18 10:33 Dose: 100 mg Magnesium Oxide (Mag-Ox -) 800 mg PO DAILY [facility] Stop: 09/10/18 10:01 Last Admin: 09/07/18 10:33 Dose: 800 mg Ondansetron HCl (Zofran Injection) 4 mg IVPUSH Q6H PRN PRN Reason: NAUSEA AND/OR VOMITING Oxycodone HCl (Roxicodone -) 5 mg PO Q4H PRN PRN Reason: PAIN LEVEL 6-10 Last Admin: 09/07/18 15:17 Dose: 5 mg Polyethylene Glycol (Miralax (For Daily Use) -) 17 gm PO BID [facility] Last Admin: 09/07/18 10:32 Dose: 17 gm Promethazine HCl (Phenergan Injection -) 12.5 mg IVPUSH Q6H PRN PRN Reason: NAUSEA-FOR RESCUE AFTER 15 MIN Senna (Senna -) 1 tab PO BID [facility] Last Admin: 09/07/18 10:32 Dose: 1 tab - Allergies Allergies: Allergies Allergy/AdvReac Type Severity Reaction Status Date / Time Penicillins Allergy Verified 08/07/18 12:35 - Current Living Status Usual Living Arrangement: With Significant Other - Current Mental Status Evaluation Appearance: Disheveled Attitude: Guarded - Affect Affect: Constrictive - Mood Mood: Depressed - Speech/Language Expressive: Delayed - Psychomotor Activity Psychomotor Activity: Slowed - Thought Process Thought Process: Circumstantial - Thought Content Hallucinations: Absent Delusions: Absent - Self Perception Self Perception: No Impairment - Cognition Attention: Alert Orientation: Time Memory, Immediate Recall: Intact Memory, Short Term: 2/3 Memory, Remote with Promptin/3 - Concentration Serial Sevens Intact: No Simple Calculations Intact: Yes - Abstraction Proverb Interpretation: Impaired Judgement: Minimally Impaired - Insight Insight: Impaired - Impulse Control Impulse Control: Minimally Impaired - Suicidal Ideation Suicidal Ideation: No - Homicidal Ideation Homicidal Ideation: No Assessment/Plan 1) Cymbalta 20mg po od for depresion and pain.
--- NOTE | 2018-09-07 17:57 | PN ---
Teaching Attending Note Name of Resident: London Pope ATTENDING PHYSICIAN STATEMENT I saw and evaluated the patient. I reviewed the resident's note and discussed the case with the resident. I agree with the resident's findings and plan as documented with exceptions below. SUBJECTIVE: Patient seen and examined. reports pain in right leg. no fevers, chills, abdominal or urinary symptoms. . OBJECTIVE: Vital Signs Period Temp Pulse Resp BP Sys/Reyes Pulse Ox Last 24 Hr 98.5 F-101.3 F 81-97 18-20 132-157/68-74 95-96 Intake & Output 09/04/18 09/05/18 09/06/18 09/07/18 23:59 23:59 23:59 23:59 Intake Total 950 1175 120 600 Output Total 575 130 335 100 Balance 375 1045 -215 500 General:sitting in bed in no acute distress Chest: poor effort, unable to appreciate rales or wheezing but limited exam Abdomen:Soft, NT, ND, right cholecystostomy tube in place Extremities Right BKA with dressing and immobilizer Active Medications Acetaminophen (Tylenol -) 325 mg PO Q4H PRN PRN Reason: PAIN LEVEL 7 - 10 Last Admin: 09/07/18 15:18 Dose: 325 mg Amlodipine Besylate (Norvasc -) 10 mg PO DAILY [facility] Last Admin: 09/07/18 10:33 Dose: 10 mg Atorvastatin Calcium (Lipitor -) 40 mg PO HS [facility] Last Admin: 09/06/18 22:23 Dose: 40 mg Docusate Sodium (Colace -) 100 mg PO BID [facility] Last Admin: 09/07/18 10:32 Dose: 100 mg Duloxetine HCl (Cymbalta -) 20 mg PO DAILY [facility] Enoxaparin Sodium (Lovenox -) 40 mg SQ DAILY [facility] Last Admin: 09/07/18 10:34 Dose: 40 mg Ferrous Sulfate (Feosol -) 325 mg PO DAILY [facility] Last Admin: 09/07/18 10:33 Dose: 325 mg Hydrochlorothiazide (Hctz -) 50 mg PO BID@0600,1800 [facility] Last Admin: 09/07/18 06:42 Dose: 50 mg Insulin Aspart (Novolog Vial Sliding Scale -) 1 vial SQ Q6H [facility]; Protocol Last Admin: 09/07/18 12:27 Dose: 2 units Insulin Detemir (Levemir Vial) 5 units SQ [facility] Last Admin: 09/06/18 22:31 Dose: 5 units Losartan Potassium (Cozaar -) 100 mg PO DAILY [facility] Last Admin: 09/07/18 10:33 Dose: 100 mg Magnesium Oxide (Mag-Ox -) 800 mg PO DAILY [facility] Stop: 09/10/18 10:01 Last Admin: 09/07/18 10:33 Dose: 800 mg Ondansetron HCl (Zofran Injection) 4 mg IVPUSH Q6H PRN PRN Reason: NAUSEA AND/OR VOMITING Oxycodone HCl (Roxicodone -) 5 mg PO Q4H PRN PRN Reason: PAIN LEVEL 6-10 Last Admin: 09/07/18 15:17 Dose: 5 mg Polyethylene Glycol (Miralax (For Daily Use) -) 17 gm PO BID [facility] Last Admin: 09/07/18 10:32 Dose: 17 gm Promethazine HCl (Phenergan Injection -) 12.5 mg IVPUSH Q6H PRN PRN Reason: NAUSEA-FOR RESCUE AFTER 15 MIN Senna (Senna -) 1 tab PO BID [facility] Last Admin: 09/07/18 10:32 Dose: 1 tab Laboratory Results - last 24 hr 09/06/18 09/06/18 09/06/18 12:40 12:40 22:26 WBC RBC Hgb Hct MCV MCH MCHC RDW Plt Count MPV Sodium Potassium Chloride Carbon Dioxide Anion Gap BUN Creatinine Creat Clearance w eGFR POC Glucometer 183 Random Glucose Calcium Phosphorus Magnesium Hepatitis A IgM Ab Negative Hep Bs Antigen Negative Hep B Core IgM Ab Negative Hepatitis Be Antigen Negative Hepatitis C Antibody 0.2 HIV Genotype Non reactive 09/07/18 09/07/18 09/07/18 06:00 06:00 06:48 WBC 9.8 RBC 3.34 L Hgb 9.0 L Hct 27.9 L MCV 83.6 MCH 27.0 MCHC 32.4 RDW 16.4 H Plt Count 250 MPV 8.5 Sodium 135 L Potassium 3.9 Chloride 97 L Carbon Dioxide 30 Anion Gap 8 BUN 16 Creatinine 0.6 Creat Clearance w eGFR > 60 POC Glucometer 160 Random Glucose 139 H Calcium 8.7 Phosphorus 3.6 Magnesium 1.9 Hepatitis A IgM Ab Hep Bs Antigen Hep B Core IgM Ab Hepatitis Be Antigen Hepatitis C Antibody HIV Genotype 09/07/18 12:26 WBC RBC Hgb Hct MCV MCH MCHC RDW Plt Count MPV Sodium Potassium Chloride Carbon Dioxide Anion Gap BUN Creatinine Creat Clearance w eGFR POC Glucometer 164 Random Glucose Calcium Phosphorus Magnesium Hepatitis A IgM Ab Hep Bs Antigen Hep B Core IgM Ab Hepatitis Be Antigen Hepatitis C Antibody HIV Genotype Microbiology 09/06/18 06:55 Blood - Peripheral Venous Blood Culture - Preliminary NO GROWTH OBTAINED AFTER 24 HOURS, INCUBATION TO CONTINUE FOR 4 DAYS. 09/06/18 06:30 Blood - Peripheral Venous Blood Culture - Preliminary NO GROWTH OBTAINED AFTER 24 HOURS, INCUBATION TO CONTINUE FOR 4 DAYS. 08/22/18 15:45 Cholecystectomy Fluid Gram Stain - Final 08/22/18 15:45 Cholecystectomy Fluid Body Fluid Culture - Final NO GROWTH OF AEROBIC ORGANISMS AFTER 48 HOURS INCUBATION 08/22/18 15:45 Cholecystectomy Fluid Anaerobic Culture - Final NO ANAEROBES WERE ISOLATED 08/17/18 12:10 Blood - Peripheral Venous Blood Culture - Final NO GROWTH AFTER 5 DAYS INCUBATION 08/17/18 11:50 Blood - Peripheral Venous Blood Culture - Final NO GROWTH AFTER 5 DAYS INCUBATION 08/07/18 14:55 Blood - Peripheral Venous Blood Culture - Final NO GROWTH AFTER 5 DAYS INCUBATION 08/07/18 13:15 Blood - Peripheral Venous Blood Culture - Final NO GROWTH AFTER 5 DAYS INCUBATION 08/07/18 14:06 Urine - Urine Clean Catch Urine Culture - Final Lactobacillus Species ASSESSMENT AND PLAN: 83 year old woman with a history of type 2 DM, HTN admitted for Right foot ischemia and found to have HTN urgency on presentation -Right foot ischemia with gangrene s/p angio with popliteal arter/SFA stent placement 08/08, s/p Right BKA 09/04 -Acute on chronic anemia, suspect from surgical blood loss -post operative fever, high suspicion for atelectasis, monitor for PNA -Acute cholecystitis s/p Cholecystostomy tube placement 08/22, off abx -Pseudothrombocytopenia (From clumping, platelets to be sent in blue tube) -Mild hyperkalemia -HTN urgency -Constipation -Normocytic anemia -Poorly controlled DM A1c 9.4 -Asymptomatic bacteruria -Hypomagnesemia Plan: Fevers noted, highly suspicous for atelectasis, monitor for PNA. u.a neg, blood cx sent. Check CXR. Oxycodone with tylenol prn for pain control. Encourage OOB, PT and incentive spirometry. Bowel regimen. Discussed with Dr. Cates, no need for plavix/full dose anticoagulation Lovenox 40 mg daily prophylactic dose. Hyperkalemia resolved. replete Mg. Continue losartan/HCTZ and Monitor K levels. Continue amlodipine. Outpatient surgery follow up for Right JAMEL drain removal. d/c IVF. Bowel regimen. s/p venofer, on iron daily. Repeat iron studies in 3 months. Levemir, ISS. Hold oral agents. DVTPPX per vascular surgery. PT eval. Psychology/Psych input noted. Start cymbalta. Extensive discussion held with patient, provided encouragement and support. Advised working with PT, OOB, and motivate to mobilize. Patient willing to participate so can be discharged soon. CM input noted. Plan for SNF in 2-3 days as disposition arranged. Plan discussed with patient and family at bedside, all questions answered.
[2018-09-07] MEDS: INSULIN (LEVEMIR) 100 UNITS/ML UNITS SQ SCH (21:44)
[2018-09-07] MEDS: ATORVASTATIN CA 40 MG TABLET (FP) PO SCH (21:44)
[2018-09-08] MEDS: INSULIN SLIDING SCALE (NOVOLOG) 1 VIAL SQ SCH ×4 (00:25→17:24)
[2018-09-08] MEDS: POLYETHYLENE GLYCOL 3350 119 GM BTL PO SCH ×3 (05:02→22:00)
[2018-09-08] MEDS: DOCUSATE SODIUM 100 MG CAPSULE (FP) PO SCH ×3 (05:02→21:59)
[2018-09-08] MEDS: ATORVASTATIN CA 40 MG TABLET (FP) PO SCH ×2 (05:03→21:59)
[2018-09-08] MEDS: SENNOSIDES 8.6MG TABLET (FP) PO SCH ×3 (05:03→21:59)
[2018-09-08] MEDS: ACETAMINOPHEN 325 MG TABLET (FP) PO PRN ×3 (05:35→21:59)
[2018-09-08] MEDS: oxyCODONE HCL 5 MG TABLET PO PRN ×3 (05:35→21:59)
[2018-09-08] MEDS: HYDROCHLOROTHIAZIDE 25 MG TABLET (FP) PO SCH ×2 (05:36→19:03)
[2018-09-08 07:40] LABS: HEMATOCRIT 28.5 % (32.4-45.2); MCH 26.7 pg (25.7-33.7); MCHC 31.7 g/dl (32.0-36.0); MEAN CELL VOLUME 84.1 fl (80-96); MEAN PLT VOLUME 8.6 fl (7.5-11.1); PLATELET COUNT 207 K/MM3 (134-434); RBC 3.39 M/mm3 (3.60-5.2); RDW 16.6 % (11.6-15.6); WHITE BLOOD COUNT 6.1 K/mm3 (4.0-10.0)
[2018-09-08 08:47] LABS: ANION GAP 10 MMOL/L (8-16); BLOOD UREA NITROGEN 28 mg/dL (7-18); CALCIUM 8.3 mg/dL (8.5-10.1); CHLORIDE 98 mmol/L (98-107); CO2 29 mmol/L (21-32); CREATININE 0.9 mg/dL (0.55-1.3); GLUCOSE,RANDOM 98 mg/dL (74-106); MAGNESIUM 2.4 mg/dL (1.8-2.4); POTASSIUM 4.1 mmol/L (3.5-5.1); SODIUM 137 mmol/L (136-145)
[2018-09-08] MEDS ORDERED: PT OWN MED DRAWER 7, Y5N ONE ×2 (09:13→18:50)
[2018-09-08] MEDS: ENOXAPARIN NA (PORCINE) 40 MG/0.4 ML DISP.SYRIN SQ SCH (09:14)
[2018-09-08] MEDS: LOSARTAN POTASSIUM 50 MG TABLET (FP) PO SCH (09:15)
[2018-09-08] MEDS: amLODIPine BESYLATE 10 MG TABLET (FP) PO SCH (09:15)
[2018-09-08] MEDS: FERROUS SO4 325 MG TABLET (FP) PO SCH (09:15)
[2018-09-08] MEDS: MAGNESIUM OXIDE 400 MG TABLET (FP) PO SCH (09:15)
[2018-09-08] MEDS: DULoxetine HCL 20 MG CAPSULE.DR (FP) PO SCH (09:16)
--- NOTE | 2018-09-08 11:16 | PN ---
Teaching Attending Note Name of Resident: London Pope ATTENDING PHYSICIAN STATEMENT I saw and evaluated the patient. I reviewed the resident's note and discussed the case with the resident. I agree with the resident's findings and plan as documented with exceptions below. SUBJECTIVE: Patient seen and examined. Reports some pain in leg but better, no nausea, vomiting or abdominal pain. Encourage to use incentive spirometry. OBJECTIVE: Vital Signs Period Temp Pulse Resp BP Sys/Reyes Pulse Ox Last 24 Hr 98.5 F-99.7 F 80-93 18-18 108-141/50-70 92 Intake & Output 09/05/18 09/06/18 09/07/18 09/08/18 23:59 23:59 23:59 23:59 Intake Total 1175 120 600 Output Total 130 335 200 320 Balance 1045 -215 400 -320 General: sitting in bed in no acute distress Chest: poor effort, no rales appreciated Abdomen:Soft, NT, cholecystostomy tube in place Extremities: RIght BKA with dressing and immobilizer Active Medications Acetaminophen (Tylenol -) 325 mg PO Q4H PRN PRN Reason: PAIN LEVEL 7 - 10 Last Admin: 09/08/18 05:35 Dose: 325 mg Amlodipine Besylate (Norvasc -) 10 mg PO DAILY [facility] Last Admin: 09/08/18 09:15 Dose: 10 mg Atorvastatin Calcium (Lipitor -) 40 mg PO HS [facility] Last Admin: 09/08/18 05:03 Dose: Not Given Docusate Sodium (Colace -) 100 mg PO BID [facility] Last Admin: 09/08/18 09:15 Dose: 100 mg Duloxetine HCl (Cymbalta -) 20 mg PO DAILY [facility] Last Admin: 09/08/18 09:16 Dose: 20 mg Enoxaparin Sodium (Lovenox -) 40 mg SQ DAILY [facility] Last Admin: 09/08/18 09:14 Dose: 40 mg Ferrous Sulfate (Feosol -) 325 mg PO DAILY [facility] Last Admin: 09/08/18 09:15 Dose: 325 mg Hydrochlorothiazide (Hctz -) 50 mg PO BID@0600,1800 [facility] Last Admin: 09/08/18 05:36 Dose: 50 mg Insulin Aspart (Novolog Vial Sliding Scale -) 1 vial SQ Q6H [facility]; Protocol Last Admin: 09/08/18 06:06 Dose: Not Given Insulin Detemir (Levemir Vial) 5 units SQ HS [facility] Last Admin: 09/07/18 21:44 Dose: 5 units Losartan Potassium (Cozaar -) 100 mg PO DAILY [facility] Last Admin: 09/08/18 09:15 Dose: 100 mg Magnesium Oxide (Mag-Ox -) 800 mg PO DAILY [facility] Stop: 09/10/18 10:01 Last Admin: 09/08/18 09:15 Dose: 800 mg Ondansetron HCl (Zofran Injection) 4 mg IVPUSH Q6H PRN PRN Reason: NAUSEA AND/OR VOMITING Oxycodone HCl (Roxicodone -) 5 mg PO Q4H PRN PRN Reason: PAIN LEVEL 6-10 Last Admin: 09/08/18 05:35 Dose: 5 mg Polyethylene Glycol (Miralax (For Daily Use) -) 17 gm PO BID [facility] Last Admin: 09/08/18 09:16 Dose: 17 gm Promethazine HCl (Phenergan Injection -) 12.5 mg IVPUSH Q6H PRN PRN Reason: NAUSEA-FOR RESCUE AFTER 15 MIN Senna (Senna -) 1 tab PO BID [facility] Last Admin: 09/08/18 09:15 Dose: 1 tab Laboratory Results - last 24 hr 09/07/18 09/07/18 09/07/18 12:26 19:01 21:39 WBC RBC Hgb Hct MCV MCH MCHC RDW Plt Count MPV Sodium Potassium Chloride Carbon Dioxide Anion Gap BUN Creatinine Creat Clearance w eGFR POC Glucometer 164 199 124 Random Glucose Calcium Magnesium 09/08/18 09/08/18 09/08/18 05:46 07:05 07:05 WBC 6.1 RBC 3.39 L Hgb 9.0 L Hct 28.5 L MCV 84.1 MCH 26.7 MCHC 31.7 L RDW 16.6 H Plt Count 207 MPV 8.6 Sodium 137 Potassium 4.1 Chloride 98 Carbon Dioxide 29 Anion Gap 10 BUN 28 H Creatinine 0.9 Creat Clearance w eGFR > 60 POC Glucometer 119 Random Glucose 98 Calcium 8.3 L Magnesium 2.4 CXR results reviewed ASSESSMENT AND PLAN: 83 year old woman with a history of type 2 DM, HTN admitted for Right foot ischemia and found to have HTN urgency on presentation -Right foot ischemia with gangrene s/p angio with popliteal arter/SFA stent placement 08/08, 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 Encourage OOB, PT and incentive spirometry. Oxycodone with tylenol prn for pain control. Bowel regimen. Discussed with Dr. Cates, no need for plavix/full dose anticoagulation Lovenox 40 mg daily prophylactic dose. Hyperkalemia resolved. replete Mg. Continue losartan/HCTZ and Monitor K levels. Continue amlodipine. Outpatient surgery follow up for Right JAMEL drain removal. Off IVF. Bowel regimen. s/p venofer, on iron daily. Repeat iron studies in 3 months. JOHN Price. Hold oral agents. DVTPPX per vascular surgery. PT светлана. Psychology/Psych input noted. Started cymbalta. Extensive discussion held with patient, provided encouragement and support. Advised working with PT, OOB, and motivate to mobilize. Patient willing to participate so can be discharged soon. PT evsánchez noted. PLan for SNF in 1-2 days if disposition arranged. Plan discussed with patient, all questions answered.
--- NOTE | 2018-09-08 12:05 | PN ---
Physical Exam: SUBJECTIVE: Patient seen and examined at bedside. Temp 99.7 this am. No acute events overnight. Daughter at bedside. OBJECTIVE: Vital Signs Period Temp Pulse Resp BP Sys/Reyes Pulse Ox Last 24 Hr 98.5 F-99.7 F 80-93 18-18 108-141/50-70 92 GENERAL: Somber, NAD HEAD: NC/CT EYES: EOMI ENT: MMM NECK: Supple No JVD appreciated LUNGS: CTA B/L Anteriorly HEART: RRR No MRG appreciated ABDOMEN: Soft, NDNT R JAMEL Drain in place EXTREMITIES: Right lower extremity brace in place Laboratory Results - last 24 hr 09/07/18 09/07/18 09/07/18 12:26 19:01 21:39 WBC RBC Hgb Hct MCV MCH MCHC RDW Plt Count MPV Sodium Potassium Chloride Carbon Dioxide Anion Gap BUN Creatinine Creat Clearance w eGFR POC Glucometer 164 199 124 Random Glucose Calcium Magnesium 09/08/18 09/08/18 09/08/18 05:46 07:05 07:05 WBC 6.1 RBC 3.39 L Hgb 9.0 L Hct 28.5 L MCV 84.1 MCH 26.7 MCHC 31.7 L RDW 16.6 H Plt Count 207 MPV 8.6 Sodium 137 Potassium 4.1 Chloride 98 Carbon Dioxide 29 Anion Gap 10 BUN 28 H Creatinine 0.9 Creat Clearance w eGFR > 60 POC Glucometer 119 Random Glucose 98 Calcium 8.3 L Magnesium 2.4 Active Medications Generic Name Dose Route Start Last Admin Trade Name Freq PRN Reason Stop Dose Admin Acetaminophen 325 mg 09/04/18 16:35 09/08/18 11:22 Tylenol - PO 325 mg Q4H PRN Administration PAIN LEVEL 7 - 10 Amlodipine Besylate 10 mg 09/05/18 10:00 09/08/18 09:15 Norvasc - PO 10 mg DAILY [facility] Administration Atorvastatin Calcium 40 mg 09/04/18 22:00 09/08/18 05:03 Lipitor - PO Not Given HS [facility] Docusate Sodium 100 mg 09/04/18 22:00 09/08/18 09:15 Colace - PO 100 mg BID [facility] Administration Duloxetine HCl 20 mg 09/08/18 10:00 09/08/18 09:16 Cymbalta - PO 20 mg DAILY [facility] Administration Enoxaparin Sodium 40 mg 09/06/18 10:00 09/08/18 09:14 Lovenox - SQ 40 mg DAILY [facility] Administration Ferrous Sulfate 325 mg 09/05/18 10:00 09/08/18 09:15 Feosol - PO 325 mg DAILY [facility] Administration Hydrochlorothiazide 50 mg 09/06/18 09:00 09/08/18 05:36 Hctz - PO 50 mg BID@0600,1800 [facility] Administration Insulin Aspart 1 vial 09/04/18 18:00 09/08/18 06:06 Novolog Vial Sliding Scale - SQ Not Given Q6H [facility] Protocol Insulin Detemir 5 units 09/04/18 22:00 09/07/18 21:44 Levemir Vial SQ 5 units HS [facility] Administration Losartan Potassium 100 mg 09/06/18 10:00 09/08/18 09:15 Cozaar - PO 100 mg DAILY [facility] Administration Magnesium Oxide 800 mg 09/06/18 10:00 09/08/18 09:15 Mag-Ox - PO 09/10/18 10:01 800 mg DAILY [facility] Administration Ondansetron HCl 4 mg 09/04/18 17:08 Zofran Injection IVPUSH Q6H PRN NAUSEA AND/OR VOMITING Oxycodone HCl 5 mg 09/06/18 08:13 09/08/18 11:21 Roxicodone - PO 5 mg Q4H PRN Administration PAIN LEVEL 6-10 Polyethylene Glycol 17 gm 09/04/18 22:00 09/08/18 09:16 Miralax (For Daily Use) - PO 17 gm BID [facility] Administration Promethazine HCl 12.5 mg 09/04/18 17:08 Phenergan Injection - IVPUSH Q6H PRN NAUSEA-FOR RESCUE AFTER 15 MIN Senna 1 tab 09/04/18 22:00 09/08/18 09:15 Senna - PO 1 tab BID [facility] Administration ASSESSMENT/PLAN: This is an 83 year old woman with a history of type 2 DM, HTN who presented to the ED with right foot pain. POD#4 BKA. No Post-Op complications. Depression? Psychiatry on board. Cymbalta 20 QD. -Spoke with daughter at length this morning regarding pt's health status. # Cholecystitis s/p perc Cholecystostomy tube insertion -S/P Percutaneous IR Guided Cholecystostomy w/ Dr Chase -ID On Board #Normocytic Anemia Ferrous Sulfate Daily # HTN - Norvasc 10 mg Daily -Losartan and HCTZ #. Type 2 DM - Metformin, Januvia held - Continue Novolog sliding scale #FEN No Fluids Monitor electrolytes Diabetic/Sodium Controlled Diet DVT ppx: Lovenox 40 SQ Dispo: Med-Surg Visit type - Emergency Visit Emergency Visit: Yes ED Registration Date: 08/07/18 Care time: The patient presented to the Emergency Department on the above date and was hospitalized for further evaluation of their emergent condition. - New Patient This patient is new to me today: No - Critical Care Critical Care patient: No - Discharge Referral Referred to [facility] Med P.C.: No
[2018-09-08] MEDS: INSULIN (LEVEMIR) 100 UNITS/ML UNITS SQ SCH (22:58)
[2018-09-09] MEDS: INSULIN SLIDING SCALE (NOVOLOG) 1 VIAL SQ SCH ×4 (00:59→17:28)
[2018-09-09] MEDS: HYDROCHLOROTHIAZIDE 25 MG TABLET (FP) PO SCH ×2 (05:40→17:28)
[2018-09-09] MEDS ORDERED: PT OWN MED DRAWER 7, Y5N ONE (10:00)
--- NOTE | 2018-09-09 10:05 | PN ---
Physical Exam: SUBJECTIVE: Patient seen and examined, right leg pain controlled, no other complaints, in better spirits today. OBJECTIVE: Vital Signs Period Temp Pulse Resp BP Sys/Reyes Pulse Ox Last 24 Hr 98.5 F-100.6 F 81-87 18-22 120-136/55-86 94 GENERAL: lying in bed in no acute distress Chest: decreased effort, no rales or wheezing Abdomen;Soft, NT, nD, cholecystostomy tube in place with minimal drainage Extremities: right BKA with clean dressing and immobilizer, no surrounding swelling erythema or discharge Neck: soft, supple Laboratory Results - last 24 hr 09/08/18 09/08/18 09/08/18 11:40 16:36 22:49 POC Glucometer 206 170 153 09/09/18 05:28 POC Glucometer 169 Active Medications Generic Name Dose Route Start Last Admin Trade Name Freq PRN Reason Stop Dose Admin Acetaminophen 325 mg 09/04/18 16:35 09/08/18 21:59 Tylenol - PO 325 mg Q4H PRN Administration PAIN LEVEL 7 - 10 Amlodipine Besylate 10 mg 09/05/18 10:00 09/08/18 09:15 Norvasc - PO 10 mg DAILY [facility] Administration Atorvastatin Calcium 40 mg 09/04/18 22:00 09/08/18 21:59 Lipitor - PO 40 mg HS [facility] Administration Docusate Sodium 100 mg 09/04/18 22:00 09/08/18 21:59 Colace - PO 100 mg BID [facility] Administration Duloxetine HCl 20 mg 09/08/18 10:00 09/08/18 09:16 Cymbalta - PO 20 mg DAILY [facility] Administration Enoxaparin Sodium 40 mg 09/06/18 10:00 09/08/18 09:14 Lovenox - SQ 40 mg DAILY [facility] Administration Ferrous Sulfate 325 mg 09/05/18 10:00 09/08/18 09:15 Feosol - PO 325 mg DAILY [facility] Administration Hydrochlorothiazide 50 mg 09/06/18 09:00 09/09/18 05:40 Hctz - PO 50 mg BID@0600,1800 [facility] Administration Insulin Aspart 1 vial 09/04/18 18:00 09/09/18 06:04 Novolog Vial Sliding Scale - SQ 2 units Q6H [facility] Administration Protocol Insulin Detemir 5 units 09/04/18 22:00 09/08/18 22:58 Levemir Vial SQ Not Given HS [facility] Losartan Potassium 100 mg 09/06/18 10:00 09/08/18 09:15 Cozaar - PO 100 mg DAILY [facility] Administration Magnesium Oxide 800 mg 09/06/18 10:00 09/08/18 09:15 Mag-Ox - PO 09/10/18 10:01 800 mg DAILY [facility] Administration Ondansetron HCl 4 mg 09/04/18 17:08 Zofran Injection IVPUSH Q6H PRN NAUSEA AND/OR VOMITING Polyethylene Glycol 17 gm 09/04/18 22:00 09/08/18 22:00 Miralax (For Daily Use) - PO 17 gm BID [facility] Administration Promethazine HCl 12.5 mg 09/04/18 17:08 Phenergan Injection - IVPUSH Q6H PRN NAUSEA-FOR RESCUE AFTER 15 MIN Senna 1 tab 09/04/18 22:00 09/08/18 21:59 Senna - PO 1 tab BID [facility] Administration ASSESSMENT/PLAN: 83 year old woman with a history of type 2 DM, HTN admitted for Right foot ischemia and found to have HTN urgency on presentation -Right foot ischemia with gangrene s/p angio with popliteal arter/SFA stent placement 08/08, 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 Encourage OOB, PT and incentive spirometry. Oxycodone with tylenol prn for pain control. Bowel regimen. Discussed with Dr. Cates, no need for plavix/full dose anticoagulation Lovenox 40 mg daily prophylactic dose. Hyperkalemia resolved. replete Mg prn. Continue losartan/HCTZ and Monitor K levels. Continue amlodipine. Outpatient surgery follow up for Right JAMEL drain removal. Off IVF. Bowel regimen. s/p venofer, on iron daily. Repeat iron studies in 3 months. JOHN Price. Hold oral agents. DVTPPX per vascular surgery. PT светлана. Psychology/Psych input noted. Started cymbalta. Extensive discussion held with patient, provided encouragement and support. Advised working with PT, OOB, and motivate to mobilize. Patient willing to participate so can be discharged soon. PT светлана noted. PLan for SNF tomorrow if bed arranged and non new concerns. Plan discussed with patient and nursing in detail, all questions answered. Visit type - Emergency Visit Emergency Visit: Yes ED Registration Date: 08/07/18 Care time: The patient presented to the Emergency Department on the above date and was hospitalized for further evaluation of their emergent condition. - New Patient This patient is new to me today: No - Critical Care Critical Care patient: No - Discharge Referral Referred to [facility] Med P.C.: No
[2018-09-09] MEDS: POLYETHYLENE GLYCOL 3350 119 GM BTL PO SCH ×2 (11:35→21:55)
[2018-09-09] MEDS: ENOXAPARIN NA (PORCINE) 40 MG/0.4 ML DISP.SYRIN SQ SCH (11:35)
[2018-09-09] MEDS: amLODIPine BESYLATE 10 MG TABLET (FP) PO SCH (11:36)
[2018-09-09] MEDS: SENNOSIDES 8.6MG TABLET (FP) PO SCH ×2 (11:36→21:55)
[2018-09-09] MEDS: LOSARTAN POTASSIUM 50 MG TABLET (FP) PO SCH (11:36)
[2018-09-09] MEDS: MAGNESIUM OXIDE 400 MG TABLET (FP) PO SCH (11:36)
[2018-09-09] MEDS: DOCUSATE SODIUM 100 MG CAPSULE (FP) PO SCH ×2 (11:37→21:54)
[2018-09-09] MEDS: FERROUS SO4 325 MG TABLET (FP) PO SCH (11:37)
[2018-09-09] MEDS: DULoxetine HCL 20 MG CAPSULE.DR (FP) PO SCH (11:37)
[2018-09-09] MEDS: ATORVASTATIN CA 40 MG TABLET (FP) PO SCH (21:54)
[2018-09-09] MEDS: INSULIN (LEVEMIR) 100 UNITS/ML UNITS SQ SCH (21:56)
[2018-09-10] MEDS: INSULIN SLIDING SCALE (NOVOLOG) 1 VIAL SQ SCH ×5 (00:03→23:58)
[2018-09-10] MEDS: ACETAMINOPHEN 325 MG TABLET (FP) PO PRN ×2 (06:27→21:59)
[2018-09-10] MEDS: HYDROCHLOROTHIAZIDE 25 MG TABLET (FP) PO SCH ×2 (06:28→17:42)
--- NOTE | 2018-09-10 08:38 | PN ---
Teaching Attending Note Name of Resident: London Pope ATTENDING PHYSICIAN STATEMENT I saw and evaluated the patient. I reviewed the resident's note and discussed the case with the resident. I agree with the resident's findings and plan as documented with exceptions below. SUBJECTIVE: patient seen and examined. right foot pain, no new complaints. OBJECTIVE: Vital Signs Period Temp Pulse Resp BP Sys/Reyes Pulse Ox Last 24 Hr 98 F-99.5 F 68-87 20-22 123-146/66-72 94-95 Intake & Output 09/07/18 09/08/18 09/09/18 09/10/18 23:59 23:59 23:59 23:59 Intake Total 600 200 510 240 Output Total 200 340 100 100 Balance 400 -140 410 140 General: lying in bed in no acute distress Chest: decreased effort, no rales or wheezing appreciated Abdomen soft, NT, cholecystostomy tube in place Extremities: right BKA stump with clean dressing Active Medications Acetaminophen (Tylenol -) 325 mg PO Q4H PRN PRN Reason: PAIN LEVEL 7 - 10 Last Admin: 09/10/18 06:27 Dose: 325 mg Amlodipine Besylate (Norvasc -) 10 mg PO DAILY [facility] Last Admin: 09/09/18 11:36 Dose: 10 mg Atorvastatin Calcium (Lipitor -) 40 mg PO HS [facility]S [facility] Last Admin: 09/09/18 21:54 Dose: 40 mg Docusate Sodium (Colace -) 100 mg PO BID [facility]S [facility] Last Admin: 09/09/18 21:54 Dose: 100 mg Duloxetine HCl (Cymbalta -) 20 mg PO DAILY [facility] Last Admin: 09/09/18 11:37 Dose: 20 mg Enoxaparin Sodium (Lovenox -) 40 mg SQ DAILY [facility]S [facility] Last Admin: 09/09/18 11:35 Dose: 40 mg Ferrous Sulfate (Feosol -) 325 mg PO DAILY [facility] 234 [facility]S [facility] Last Admin: 09/09/18 11:37 Dose: 325 mg Hydrochlorothiazide (Hctz -) 50 mg PO BID@0600,1800 [facility]S [facility] Last Admin: 09/10/18 06:28 Dose: 50 mg Insulin Aspart (Novolog Vial Sliding Scale -) 1 vial SQ Q6H [facility] 234 BEDS [facility]; Protocol Last Admin: 09/10/18 06:28 Dose: 2 units Insulin Detemir (Levemir Vial) 5 units SQ [facility] Last Admin: 09/09/18 21:56 Dose: 5 units Losartan Potassium (Cozaar -) 100 mg PO DAILY [facility] 234 B[facility]S [facility] Last Admin: 09/09/18 11:36 Dose: 100 mg Magnesium Oxide (Mag-Ox -) 800 mg PO DAILY [facility] 234 BEDS AT [facility] Stop: 09/10/18 10:01 Last Admin: 09/09/18 11:36 Dose: 800 mg Ondansetron HCl (Zofran Injection) 4 mg IVPUSH Q6H PRN PRN Reason: NAUSEA AND/OR VOMITING Oxycodone HCl (Roxicodone -) 5 mg PO Q6H PRN PRN Reason: PAIN LEVEL 6-10 Polyethylene Glycol (Miralax (For Daily Use) -) 17 gm PO BID [facility] 234 BEDS [facility] Last Admin: 09/09/18 21:55 Dose: 17 gm Promethazine HCl (Phenergan Injection -) 12.5 mg IVPUSH Q6H PRN PRN Reason: NAUSEA-FOR RESCUE AFTER 15 MIN Senna (Senna -) 1 tab PO BID [facility] 234 [facility]S [facility] Last Admin: 09/09/18 21:55 Dose: 1 tab Laboratory Results - last 24 hr 09/09/18 09/09/18 09/09/18 12:20 16:52 21:51 POC Glucometer 267 149 210 09/10/18 09/10/18 00:03 06:26 POC Glucometer 183 154 ASSESSMENT AND PLAN: 83 year old woman with a history of type 2 DM, HTN admitted for Right foot ischemia and found to have HTN urgency on presentation -Right foot ischemia with gangrene s/p angio with popliteal arter/SFA stent placement 08/08, 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 Encourage OOB, PT and incentive spirometry. Oxycodone with tylenol prn for pain control. Bowel regimen. Discussed with Dr. Cates, no need for plavix/full dose anticoagulation Lovenox 40 mg daily prophylactic dose. Hyperkalemia resolved. replete Mg prn. Continue losartan/HCTZ and Monitor K levels. Continue amlodipine. Outpatient surgery follow up for Right JAMEL drain removal. Off IVF. Bowel regimen. s/p venofer, on iron daily. Repeat iron studies in 3 months. Levemir, ISS. Hold oral agents. DVTPPX per vascular surgery. PT светлана. Psychology/Psych input noted. Started cymbalta. Extensive discussion held with patient, provided encouragement and support. Advised working with PT, OOB, and motivate to mobilize. Patient willing to participate so can be discharged soon. PT светлана noted. PLan for SNF dc when arrangements made. Plan discussed with patient and nursing in detail, all questions answered.
[2018-09-10] MEDS: oxyCODONE HCL 5 MG TABLET PO PRN ×3 (08:46→21:58)
[2018-09-10] MEDS: amLODIPine BESYLATE 10 MG TABLET (FP) PO SCH (11:11)
[2018-09-10] MEDS: SENNOSIDES 8.6MG TABLET (FP) PO SCH ×2 (11:11→21:58)
[2018-09-10] MEDS: FERROUS SO4 325 MG TABLET (FP) PO SCH (11:11)
[2018-09-10] MEDS: DOCUSATE SODIUM 100 MG CAPSULE (FP) PO SCH ×2 (11:11→21:58)
[2018-09-10] MEDS: LOSARTAN POTASSIUM 50 MG TABLET (FP) PO SCH (11:11)
[2018-09-10] MEDS: MAGNESIUM OXIDE 400 MG TABLET (FP) PO SCH (11:11)
[2018-09-10] MEDS: ENOXAPARIN NA (PORCINE) 40 MG/0.4 ML DISP.SYRIN SQ SCH (11:12)
[2018-09-10] MEDS: DULoxetine HCL 20 MG CAPSULE.DR (FP) PO SCH (11:29)
[2018-09-10] MEDS ORDERED: PT OWN MED DRAWER 7, Y5N ONE (11:29)
[2018-09-10] MEDS ORDERED: INSULIN (NOVOLOG) ASPART 100 UNITS/ML 10ML VIAL ONE (11:29)
[2018-09-10] MEDS: POLYETHYLENE GLYCOL 3350 119 GM BTL PO SCH ×2 (11:30→21:59)
--- NOTE | 2018-09-10 13:02 | PN ---
Progress Note, Physician History of Present Illness: Patient is a 83 y/o female with a history of DM and HTN who presents for right foot pain. She described the pain as a burning, its starts in her foot and moves up to her knee. She rates it as 8/10. It is worse with touch and when she is walking. She has not found that anything makes it better, she has been trying to use icy hot but with no relief. The pain has been worsening for the last three weeks. Patient denies any recent trauma On july 23 patient followed up with her hyperion developer who cut her nails. Patient believes one of the nails was cut too short and that is when the pain began. On July 29 they went to the ED at [facility] in [place] for the pain. She had an Xray done and was told she had a fracture. She was given oxycodone, but only took one pill. Earlier today she saw her PCP who stated she needed to come to the Emergency room. Patient presented to [facility]. An ultrasound showed an extensive atherosclerotic plaque and abnormal flow in the right extremity. Determine patient needs a CTA so she was transferred to [facility]. Patient reports he felt feverish over the weekend, but it resolves. She currently denies chest pain , SOB, nausea, headache, or blurry vision. 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 Patient is non compliant with her home medications. She is able to ambulate at home with a cane. - Current Medication List Current Medications: Active Medications Acetaminophen (Tylenol -) 325 mg PO Q4H PRN PRN Reason: PAIN LEVEL 7 - 10 Last Admin: 09/10/18 06:27 Dose: 325 mg Amlodipine Besylate (Norvasc -) 10 mg PO DAILY [facility] Last Admin: 09/10/18 11:11 Dose: 10 mg Atorvastatin Calcium (Lipitor -) 40 mg PO HS [facility] Last Admin: 09/09/18 21:54 Dose: 40 mg Docusate Sodium (Colace -) 100 mg PO BID [facility] Last Admin: 09/10/18 11:11 Dose: 100 mg Duloxetine HCl (Cymbalta -) 20 mg PO DAILY [facility] Last Admin: 09/10/18 11:29 Dose: 20 mg Enoxaparin Sodium (Lovenox -) 40 mg SQ DAILY [facility] Last Admin: 09/10/18 11:12 Dose: 40 mg Ferrous Sulfate (Feosol -) 325 mg PO DAILY [facility] Last Admin: 09/10/18 11:11 Dose: 325 mg Hydrochlorothiazide (Hctz -) 50 mg PO BID@0600,1800 [facility] Last Admin: 09/10/18 06:28 Dose: 50 mg Insulin Aspart (Novolog Vial Sliding Scale -) 1 vial SQ Q6H [facility]; Protocol Last Admin: 09/10/18 12:08 Dose: 2 units Insulin Detemir (Levemir Vial) 5 units SQ HS [facility] Last Admin: 09/09/18 21:56 Dose: 5 units Losartan Potassium (Cozaar -) 100 mg PO DAILY [facility] Last Admin: 09/10/18 11:11 Dose: 100 mg Ondansetron HCl (Zofran Injection) 4 mg IVPUSH Q6H PRN PRN Reason: NAUSEA AND/OR VOMITING Oxycodone HCl (Roxicodone -) 5 mg PO Q6H PRN PRN Reason: PAIN LEVEL 6-10 Last Admin: 09/10/18 08:46 Dose: 5 mg Polyethylene Glycol (Miralax (For Daily Use) -) 17 gm PO BID [facility] Last Admin: 09/10/18 11:30 Dose: 17 gm Promethazine HCl (Phenergan Injection -) 12.5 mg IVPUSH Q6H PRN PRN Reason: NAUSEA-FOR RESCUE AFTER 15 MIN Senna (Senna -) 1 tab PO BID [facility] Last Admin: 09/10/18 11:11 Dose: 1 tab - Objective Vital Signs: Vital Signs Temperature 98.4 F 09/10/18 06:00 Pulse Rate 68 09/10/18 06:00 Respiratory Rate 20 09/10/18 06:00 Blood Pressure 143/66 09/10/18 06:00 O2 Sat by Pulse Oximetry (%) 95 09/10/18 10:00 Eyes: Yes: WNL, Conjunctiva Clear, EOM Intact HENT: Yes: WNL, Atraumatic, Normocephalic Neck: Yes: WNL, Supple, Trachea Midline Cardiovascular: Yes: WNL, Regular Rate and Rhythm Respiratory: Yes: WNL, Regular, CTA Bilaterally Gastrointestinal: Yes: WNL, Normal Bowel Sounds Genitourinary: Yes: WNL Musculoskeletal: Yes: WNL Extremities: Yes: Amputation Edema: No Integumentary: Yes: WNL Neurological: Yes: WNL, Alert, Oriented ...Motor Strength: WNL Psychiatric: Yes: WNL Labs: CBC, BMP 09/08/18 07:05 09/08/18 07:05 INR, PTT INR 1.43 (0.83-1.09) H 08/23/18 21:30 Problem List - Problems (1) Leukocytosis Code(s): D72.829 - ELEVATED WHITE BLOOD CELL COUNT, UNSPECIFIED (2) Lower limb ischemia Code(s): I99.8 - OTHER DISORDER OF CIRCULATORY SYSTEM Assessment/Plan - Problems (1) Gangrene of toe of right foot Assessment/Plan: s/p right BKA. f/u with surgeon. Code(s): I96 - GANGRENE, NOT ELSEWHERE CLASSIFIED (2) Hyperlipidemia Assessment/Plan: On atorvastatin; total cholesterol is <100 mg/dL. Code(s): E78.5 - HYPERLIPIDEMIA, UNSPECIFIED (3) HTN (hypertension) Assessment/Plan: on losartan, HCTZ, and amlodipine; f/u BP SERIALLY. Code(s): I10 - ESSENTIAL (PRIMARY) HYPERTENSION (4) Leukocytosis Code(s): D72.829 - ELEVATED WHITE BLOOD CELL COUNT, UNSPECIFIED (5) Diastolic CHF Assessment/Plan: ECHO: normal LVEF: abnormal diastolic compliance; mild-moderate TR. On losartan. Rising BUN; avoid dehydration. F/u BUN/Cr, eectrolytes, daily weight, Is and Os. Code(s): I50.30 - UNSPECIFIED DIASTOLIC (CONGESTIVE) HEART FAILURE
--- NOTE | 2018-09-10 15:52 | PN ---
Physical Exam: SUBJECTIVE: Patient seen and examined at bedside. Endorses R lower extremity pain. No acute events overnight. OBJECTIVE: Vital Signs Period Temp Pulse Resp BP Sys/Reyes Pulse Ox Last 24 Hr 98 F-98.8 F 68-87 18-76 121-146/62-79 95-95 GENERAL: More alert, responding to questions HEAD: Normal with no signs of trauma. EYES: EOMI, Conjunctiva clear ENT:MMM NECK: supple. LUNGS: CTA B/L HEART: RRR No MRG S1S2 ABDOMEN: Soft NDNT, No HSM, R JAMEL drain draining EXTREMITIES: R Knee imobilizer in place, Bandage in place. NEUROLOGICAL: No gross neuro deficits SKIN: Warm, dry, normal turgor, no rashes or lesions noted Laboratory Results - last 24 hr 09/09/18 09/09/18 09/10/18 16:52 21:51 00:03 POC Glucometer 149 210 183 09/10/18 09/10/18 06:26 12:07 POC Glucometer 154 199 Active Medications Generic Name Dose Route Start Last Admin Trade Name Freq PRN Reason Stop Dose Admin Acetaminophen 325 mg 09/04/18 16:35 09/10/18 06:27 Tylenol - PO 325 mg Q4H PRN Administration PAIN LEVEL 7 - 10 Amlodipine Besylate 10 mg 09/05/18 10:00 09/10/18 11:11 Norvasc - PO 10 mg DAILY FLYNN Administration Atorvastatin Calcium 40 mg 09/04/18 22:00 09/09/18 21:54 Lipitor - PO 40 mg HS FLYNN Administration Docusate Sodium 100 mg 09/04/18 22:00 09/10/18 11:11 Colace - PO 100 mg BID FLYNN Administration Duloxetine HCl 20 mg 09/08/18 10:00 09/10/18 11:29 Cymbalta - PO 20 mg DAILY FLYNN Administration Enoxaparin Sodium 40 mg 09/06/18 10:00 09/10/18 11:12 Lovenox - SQ 40 mg DAILY FLYNN Administration Ferrous Sulfate 325 mg 09/05/18 10:00 09/10/18 11:11 Feosol - PO 325 mg DAILY FLYNN Administration Hydrochlorothiazide 50 mg 09/06/18 09:00 09/10/18 06:28 Hctz - PO 50 mg BID@0600,1800 FLYNN Administration Insulin Aspart 1 vial 09/04/18 18:00 09/10/18 12:08 Novolog Vial Sliding Scale - SQ 2 units Q6H FLYNN Administration Protocol Insulin Detemir 5 units 09/04/18 22:00 09/09/18 21:56 Levemir Vial SQ 5 units HS FLYNN Administration Losartan Potassium 100 mg 09/06/18 10:00 09/10/18 11:11 Cozaar - PO 100 mg DAILY FLYNN Administration Ondansetron HCl 4 mg 09/04/18 17:08 Zofran Injection IVPUSH Q6H PRN NAUSEA AND/OR VOMITING Oxycodone HCl 5 mg 09/10/18 07:45 09/10/18 13:55 Roxicodone - PO 5 mg Q6H PRN Administration PAIN LEVEL 6-10 Polyethylene Glycol 17 gm 09/04/18 22:00 09/10/18 11:30 Miralax (For Daily Use) - PO 17 gm BID FLYNN Administration Promethazine HCl 12.5 mg 09/04/18 17:08 Phenergan Injection - IVPUSH Q6H PRN NAUSEA-FOR RESCUE AFTER 15 MIN Senna 1 tab 09/04/18 22:00 09/10/18 11:11 Senna - PO 1 tab BID FLYNN Administration ASSESSMENT/PLAN: This is an 83 year old woman with a history of type 2 DM, HTN who presented to the ED with right foot pain. POD#6 BKA. No Post-Op complications. Depression? Psychiatry on board. Cymbalta 20 QD. -Blood Cultures negative from 09/06. # Cholecystitis s/p perc Cholecystostomy tube insertion -S/P Percutaneous IR Guided Cholecystostomy w/ Dr Chase -ID On Board #Normocytic Anemia Ferrous Sulfate Daily # HTN - Norvasc 10 mg Daily -Losartan and HCTZ #. Type 2 DM - Metformin, Januvia held - Continue Novolog sliding scale #FEN No Fluids Monitor electrolytes Diabetic/Sodium Controlled Diet DVT ppx: Lovenox 40 SQ Dispo: Pending SNF placement. Spoke with Lashae social science manager today. Visit type - Emergency Visit Emergency Visit: Yes ED Registration Date: 08/07/18 Care time: The patient presented to the Emergency Department on the above date and was hospitalized for further evaluation of their emergent condition. - New Patient This patient is new to me today: No - Critical Care Critical Care patient: No - Discharge Referral Referred [facility] No
[2018-09-10] MEDS: ATORVASTATIN CA 40 MG TABLET (FP) PO SCH (21:58)
[2018-09-10] MEDS: INSULIN (LEVEMIR) 100 UNITS/ML UNITS SQ SCH (22:00)
[2018-09-11] MEDS: oxyCODONE HCL 5 MG TABLET PO PRN ×3 (04:02→13:28)
[2018-09-11] MEDS: ACETAMINOPHEN 325 MG TABLET (FP) PO PRN (04:03)
[2018-09-11] MEDS: HYDROCHLOROTHIAZIDE 25 MG TABLET (FP) PO SCH (05:37)
[2018-09-11] MEDS: INSULIN SLIDING SCALE (NOVOLOG) 1 VIAL SQ SCH ×2 (06:01→11:55)
[2018-09-11] MEDS ORDERED: PT OWN MED DRAWER 7, Y5N ONE (09:14)
[2018-09-11] MEDS: SENNOSIDES 8.6MG TABLET (FP) PO SCH (09:32)
[2018-09-11] MEDS: amLODIPine BESYLATE 10 MG TABLET (FP) PO SCH (09:32)
[2018-09-11] MEDS: FERROUS SO4 325 MG TABLET (FP) PO SCH (09:32)
[2018-09-11] MEDS: DOCUSATE SODIUM 100 MG CAPSULE (FP) PO SCH (09:32)
[2018-09-11] MEDS: DULoxetine HCL 20 MG CAPSULE.DR (FP) PO SCH (09:32)
[2018-09-11] MEDS: LOSARTAN POTASSIUM 50 MG TABLET (FP) PO SCH (09:33)
[2018-09-11] MEDS: POLYETHYLENE GLYCOL 3350 119 GM BTL PO SCH (09:33)
[2018-09-11] MEDS: ENOXAPARIN NA (PORCINE) 40 MG/0.4 ML DISP.SYRIN SQ SCH (09:33)
[2018-09-11 09:39] VITALS: BP 156/62; PULSE 73; TEMP 97.9
--- NOTE | 2018-09-11 12:31 | PN ---
Teaching Attending Note Name of Resident: London Pope ATTENDING PHYSICIAN STATEMENT I saw and evaluated the patient. I reviewed the resident's note and discussed the case with the resident. I agree with the resident's findings and plan as documented. SUBJECTIVE:asymptomatic. denies CP, SOB, fever, chills, N/V/C?D OBJECTIVE: Last Vital Signs Temp Pulse Resp BP Pulse Ox 97.9 F 73 18 156/62 95 09/11/18 09:00 09/11/18 09:00 09/11/18 09:00 09/11/18 09:00 09/10/18 21:00 General NAD Abdomen soft NT/ND +RUQ JAMEL drain Extremities RLE BKA, surgical incision is c/d/i. ileana in place. ASSESSMENT AND PLAN: 83 year old woman with a history of type 2 DM, HTN admitted for Right foot ischemia and found to have HTN urgency on presentation 1. R Foot ischemia- s/p angio with Popliteal artery and SFA sent placement 08/08. s/p R BKA 09/04. tolerated well. no further indication for anticoagulation or antiplatlet therapy. will need to f/u with vasc surgery for staple removal 2. Acute cholecystisis- s/p JAMEL drain 08/22. off abx. will need to f/u [facility] outpatient for elective cholecystectomy. if unable to remove GB will need tube change [id number] 3. Pseudothrombocytopenia-stable. on full dose lovenox. hematology on board 4. HTN urgency-controlled. cont current management. 5. constipation-likely opiate induced. +BM yesterday. cont stool softeners 6. Normocytic anemia- iron def anemia. s/p venofer. on iron daily and monitor for regular BM. should have iron studies repeated in 3 months 7. DM- A1c 9.4. improved. cont levemir and iss. titrate as needed. hold oral agents on discharge 8. +UCx- not symptomatic. will not treat 9. DVT ppx- hep sq 10. medically optimized for d/c to [facility]. will need hep sq for ppx while at the facility
--- NOTE | 2018-09-11 13:42 | DS ---
Physical Exam: SUBJECTIVE: Patient seen and examined at bedside. OBJECTIVE: Vital Signs Period Temp Pulse Resp BP Sys/Reyes Pulse Ox Last 24 Hr 97.9 F-98.1 F 63-76 18-76 123-156/59-79 94-95 PHYSICAL EXAM GENERAL: Awake Alert NAD HEAD: NC/CT EYES: EOMI ENT: MMM NECK: Supple No JVD appreciated LUNGS: CTA B/L Anteriorly HEART: RRR No MRG appreciated ABDOMEN: Right JAMEL drain intact and draining. EXTREMITIES: Right lower extremity BKA site clean and dry. Morehouse in place. LABS Laboratory Results - last 24 hr 09/10/18 09/10/18 09/11/18 17:32 23:53 05:36 POC Glucometer 185 181 139 09/11/18 11:55 POC Glucometer 179 HOSPITAL COURSE: Date of Admission:08/07/18 Pt is an 83 year old woman with a history of type 2 DM, HTN who presented to the ED with right foot pain. Duplex revealed extensive atherosclerotic disease with abnormal flow throughout the RLE, no flow noted within distal popliteal and posterior tibial arteries. A CT Angiogram of the abdomen and pelvis with bilateral lower extremity runoff was performed as well which revealed moderate to severe stenosis in right SFA, popliteal artery with occlusion of right popliteal artery from knee to proximal infrapopliteal arteries; moderate to severe stenosis in left SFA, popliteal artery, tibioperoneal trunk with occluded left peroneal artery; high grade stenosis at origin of left renal artery. please see report for further details. Patient was placed on a heparin drip and evaluated by vascular surgery. Pt subsequently underwent an Aortogram, RLE angiogram, SFA/Popliteal artery angioplasty, SFA stent, Popliteal artery stent. Pt remained on heparin and plavix s/p surgery. Pt was also hypertensive during her stay, having a reading of 200's systolic on admission, was treated with Norvasc and Losartan/HCTZ combo. Furthermore, pt during her stay began to experience right upper quadrant abdominal pain. Pt underwent an ultrasound of her galbladder which revealed cholelithiasis with pericholecystic fluid with mild thickening of the gallbladder alas compatible with acute cholecystitis. Pt then underwent a HIDA scan which further supported the diagnosis of acute cholecystits, please see report for further details. Pt along with family were apprehensive about undergoing surgical intervention for gallbladder, so a percutaneous cholecystostomy tube placement was preferred and ultimately performed without any complications. Pt's right toes progressively became dusky in appearance and her sensation was decreasing as well. Pt was diagnosed with Gangrene of her right foot. Podiatry and Vascular surgery thoroughly explained to patient and family options including TMA and R BKA. Pt ultimately underwent the BKA. Pt was also evaluated by Psychiatry and placed on Cymbalta 20 MG Daily for depressive symptoms by psychiatrist. Date of Discharge: 09/11/18 Minutes to complete discharge: 35 Discharge Summary Reason For Visit: RIGHT FOOT PAIN Current Active Problems Depression (Chronic) Diastolic CHF (Chronic) HTN (hypertension) (Chronic) Hyperlipidemia (Chronic) Memory deficit (Chronic) S/P BKA (below knee amputation) (Chronic) Condition: Fair - Instructions Diet, Activity, Other Instructions: You were admitted to [facility] due to gangrene of your right foot. You were evaluated by a adult specialist as well as a Vascular Surgeon Dr Cates . You underwent imaging studies which revealed significantly decreased blood to your right lower extremity and you were also observed to have gangrene of your right foot. You subsequently underwent a Below Knee Amputation with Dr Cates. Please see Dr Cates in 1 week. You will need the ileana to be removed. Also continue with heparin while you are at the facility, this will reduce the risk of blood clots from forming. Furthermore, you were also found to have infection in gall bladder ( cholecystitis) on this admission which was revealed upon physical examination as well as imaging. You did NOT want to pursue a cholecystectomy- a surgery where the surgeon removes the gallbladder. Instead, a less invasive procedure called a Cholecystostomy was performed. This is a tube that is inserted through your abdomen into your gallbladder. This tube will stay inside you upon discharge. It is imperative that you follow up with the General Surgeon, Dr Todd Andrade in 3 weeks to evaluate your gallbladder and cholecystostomy tube. If your gallbladder is not removed and you need to maintain this tube it will need to be exchanged every 3 months. THis will prevent infection from developing. If you experience fevers, fast heart rate, increased sweating, chest pain, shortness of breath, worsening on pain in your right foot, further gangrene spread in your right lower extremity, immediately call 911 and come to the Emergency Room. The following referrals have been printed for you and are in your discharge packet. It is imperative for you to see these physicians within 1 week. You primary Care physician. If you do not have a primary care physician, you may follow up at our Medical Clinic. A referral has been printed in your discharge papers. Dr Mendez . Dr Todd Andrade MD- Surgeon (for your Gall Bladder and Cholecystostomy tube ) in [address] William Cates MD- Vascular Surgeon in 1 week. Change dressing every other day (4x4/kacey) MEDICATIONS: You will be sent to to a rehab facility. You oral Diabetes medications have been stopped. You will be sent to Rehab on Insulin as instructed in medication list. Please resume all of your other home medications that have been printed for you. Please Stop your Metoprolol medication. Please take the following medications for your elevated blood pressure: Cozaar 100 mg daily, Hydrochlorothiazide 50 mg daily, and Norvasc 10 mg daily. You were seen by a Psychiatrist who started you on Cymbalta 20 MG Daily. This is to help with depression. Please continue to take this medication. Referrals: [facility] [Outside] - 1 Week Bashir Mendez MD [Staff Physician] - William Mcgrath MD [Staff Physician] - William Cates MD [Staff Physician] - Todd Andrade MD [Staff Physician] - Disposition: ALF FACILITY - Home Medications Comprehensive Discharge Medication List: Ambulatory Orders Amlodipine Besylate [Norvasc -] 10 mg PO DAILY tablet 08/31/18 Atorvastatin Ca [Lipitor] 40 mg PO HS tablet 08/31/18 Docusate Sodium [Colace -] 100 mg PO BID capsule 08/31/18 Ferrous Sulfate 325 mg PO DAILY #30 tablet 08/31/18 Hydrochlorothiazide [Hctz -] 50 mg PO DAILY tablet 08/31/18 Insulin (Levemir) [Levemir Vial] 5 units SQ HS units 08/31/18 Insulin Sliding Scale [Novolog Vial Sliding Scale -] 1 vial SQ Q6H units Losartan Potassium [Cozaar -] 100 mg PO DAILY tablet 08/31/18 Polyethylene Glycol 3350 [Miralax 119 gm Btl -] 17 gm PO BID bottle 08/31/18 Sennosides [Senna -] 1 tab PO BID tablet 08/31/18 Acetaminophen [Tylenol .Regular Strength -] 325 mg PO Q4H PRN 30 Days tablet Duloxetine HCl [Cymbalta] 20 mg PO DAILY #30 capsule. 09/11/18 Heparin - 5,000 unit SQ Q8H 28 Days ml 09/11/18 oxyCODONE HCL [Roxicodone -] 5 mg PO Q6H PRN 7 Days tablet MDD 25 09/11/18 This patient is new to me today: No Emergency Visit: Yes ED Registration Date: 08/07/18 Care time: The patient presented to the Emergency Department on the above date and was hospitalized for further evaluation of their emergent condition. Critical Care patient: No - Discharge Referral Referred to [facility] No
== END 2018-09-11 14:28 | DRG 240 ==
LOC: FER 12:33 → JICU 19:47 → J5S 08-09 18:52
PROVIDERS: ADMIT Internal Medicine; ATTEND Internal Medicine
PROC: 0Y6H0Z1 Detachment at Right Lower Leg, High, Open Approach (ICD-10-PCS; principal; 2018-08-05)
PROC: 047K341 Dilation of Right Femoral Artery with Drug-eluting Intraluminal Device, using Drug-Coated Balloon, Percutaneous Approach (ICD-10-PCS; 2018-08-08)
PROC: 047M341 Dilation of Right Popliteal Artery with Drug-eluting Intraluminal Device, using Drug-Coated Balloon, Percutaneous Approach (ICD-10-PCS; 2018-08-08)
PROC: B40DYZZ Plain Radiography of Aorta and Bilateral Lower Extremity Arteries using Other Contrast (ICD-10-PCS; 2018-08-08)
PROC: 3E033GC Introduction of Other Therapeutic Substance into Peripheral Vein, Percutaneous Approach (ICD-10-PCS; 2018-08-08)
PROC: B40FYZZ Plain Radiography of Right Lower Extremity Arteries using Other Contrast (ICD-10-PCS; 2018-08-08)
PROC: 30233R1 Transfusion of Nonautologous Platelets into Peripheral Vein, Percutaneous Approach (ICD-10-PCS; 2018-08-21)
PROC: 0F9430Z Drainage of Gallbladder with Drainage Device, Percutaneous Approach (ICD-10-PCS; 2018-08-22)
DX: E11.52 Type 2 diabetes mellitus with diabetic peripheral angiopathy with gangrene (principal); E87.1 Hypo-osmolality and hyponatremia; I96 Gangrene, not elsewhere classified; K80.00 Calculus of gallbladder with acute cholecystitis without obstruction; I50.32 Chronic diastolic (congestive) heart failure; N39.0 Urinary tract infection, site not specified; I50.30 Unspecified diastolic (congestive) heart failure; J98.11 Atelectasis; D62 Acute posthemorrhagic anemia; M25.571 Pain in right ankle and joints of right foot; I74.4 Embolism and thrombosis of arteries of extremities, unspecified; Z91.14 Patient's other noncompliance with medication regimen; I16.0 Hypertensive urgency; E11.65 Type 2 diabetes mellitus with hyperglycemia; N32.81 Overactive bladder; D72.829 Elevated white blood cell count, unspecified; K21.9 Gastro-esophageal reflux disease without esophagitis; D64.9 Anemia, unspecified; E88.09 Other disorders of plasma-protein metabolism, not elsewhere classified; I11.0 Hypertensive heart disease with heart failure; I77.1 Stricture of artery; K59.03 Drug induced constipation; T40.605A Adverse effect of unspecified narcotics, initial encounter; D50.9 Iron deficiency anemia, unspecified; D69.6 Thrombocytopenia, unspecified; Z88.0 Allergy status to penicillin; R50.9 Fever, unspecified; I99.8 Other disorder of circulatory system; Z79.4 Long term (current) use of insulin; I07.1 Rheumatic tricuspid insufficiency; E83.42 Hypomagnesemia; F32.9 Major depressive disorder, single episode, unspecified; R41.3 Other amnesia
CPT/HCPCS: 36415; 36430; 47490; 71045-TC-FY; 73630-TC-RT-FY; 74021-TC-FY; 75635-TC; 76000-TC-FY; 76098-TC-FY; 76705-TC; 76998-TC; 78226-TC; 78452-TC; 80048; 80053; 80061; 80074; 80076; 81003; 81015; 82272; 82542; 82550; 82728; 82962; 83036; 83540; 83550; 83605; 83721; 83735; 84100; 84466; 84484; 85025; 85027; 85032; 85044; 85610; 85651; 85730; 86022; 86140; 86850; 86900; 86901; 86922; 87040; 87070; 87075; 87086; 87205; 87350; 87389; 87899; 88307-TC; 88311-TC; 93005; 93010; 93017; 93306-TC; 93925-TC; 93926-TC; 93971-TC; 94010; 94760; 97116-GP; 97161-GP; 99285-25; A4358; A9502; A9537; C1729; C1769; J0131; J0883; J1644; J1756; J2785; J7030; P9034

== ENCOUNTER 2018-09-14 10:08 | Observation (INO) | payer OTHER ==
--- NOTE | 2018-09-14 11:00 | PDOC ---
History of Present Illness - General Chief Complaint: Lethargy Stated Complaint: AMS Time Seen by Provider: 09/14/18 10:38 - History of Present Illness Initial Comments: The patient is an 83F w/ a history of T2DM, HTN, PVD s/p R BKA and stent, and cholecysitis s/p IR drainage who presents from [facility] for evaluation of AMS with reported altered movements of BUE. Per the patient's daughter, the patient has been more lethargic over the last 2- 3 days. She states that at baseline, the patient is intermittently oriented to person and time. Per the daughter, the patient has also been declining in mentation chronically. 09/14/18 11:09 Past History - Past Medical History Allergies/Adverse Reactions: Allergies Allergy/AdvReac Type Severity Reaction Status Date / Time Penicillins Allergy Verified 08/07/18 12:35 Home Medications: Ambulatory Orders Amlodipine Besylate [Norvasc -] 10 mg PO DAILY tablet 08/31/18 Atorvastatin Ca [Lipitor] 40 mg PO HS tablet 08/31/18 Docusate Sodium [Colace -] 100 mg PO BID capsule 08/31/18 Ferrous Sulfate 325 mg PO DAILY #30 tablet 08/31/18 Hydrochlorothiazide [Hctz -] 50 mg PO DAILY tablet 08/31/18 Insulin (Levemir) [Levemir Vial] 5 units SQ HS units 08/31/18 Insulin Sliding Scale [Novolog Vial Sliding Scale -] 1 vial SQ Q6H units Losartan Potassium [Cozaar -] 100 mg PO DAILY tablet 08/31/18 Polyethylene Glycol 3350 [Miralax 119 gm Btl -] 17 gm PO BID bottle 08/31/18 Sennosides [Senna -] 1 tab PO BID tablet 08/31/18 Acetaminophen [Tylenol .Regular Strength -] 325 mg PO Q4H PRN 30 Days tablet Duloxetine HCl [Cymbalta] 20 mg PO DAILY #30 capsule. 09/11/18 Heparin - 5,000 unit SQ Q8H 28 Days ml 09/11/18 oxyCODONE HCL [Roxicodone -] 5 mg PO Q6H PRN 7 Days tablet MDD 25 09/11/18 Anemia: No Asthma: No Cancer: No Cardiac Disorders: No CVA: No COPD: No CHF: No Dementia: No Diabetes: Yes GI Disorders: No Disorders: No HTN: Yes Hypercholesterolemia: No Liver Disease: No Seizures: No Thyroid Disease: No - Surgical History Abdominal Surgery: No Appendectomy: No Cardiac Surgery: No Cholecystectomy: No Lung Surgery: No Neurologic Surgery: No Orthopedic Surgery: No - Suicide/Smoking/Psychosocial Hx Smoking History: Never smoked Have you smoked in the past 12 months: No Information on smoking cessation initiated: No Hx Alcohol Use: No Drug/Substance Use Hx: No Substance Use Type: None Hx Substance Use Treatment: No Review of Systems - Review of Systems Able to Perform ROS?: No (medical condition) *Physical Exam - Vital Signs Last Vital Signs Temp Pulse Resp BP Pulse Ox 96.9 F L 64 16 107/58 L 100 09/14/18 10:10 09/14/18 10:10 09/14/18 10:10 09/14/18 10:10 09/14/18 10:10 - Physical Exam Comments: GENERAL: Awake, alert, and fully oriented, in no acute distress HEAD: No signs of trauma, normocephalic, atraumatic EYES: PERRLA, EOMI, sclera anicteric, conjunctiva clear ENT: Hearing grossly normal, nares patent, oropharynx clear without exudates. Moist mucosa LUNGS: No distress, speaks full sentences, clear to auscultation bilaterally HEART: Regular rate and rhythm, normal S1 and S2, no murmurs appreciated, peripheral pulses normal and equal bilaterally ABDOMEN: Soft, nontender, normoactive bowel sounds. No guarding, no rebound. EXTREMITIES : Normal inspection, Normal range of motion, no edema. No clubbing or cyanosis NEUROLOGICAL: Cranial nerves II through XII grossly intact. Normal speech, normal gait, no focal sensorimotor deficits SKIN: Warm, Dry, normal turgor, no rashes or lesions noted 09/14/18 10:59 Moderate Sedation - Procedure Monitoring Vital Signs: Procedure Monitoring Vital Signs Temperature 96.9 F L 09/14/18 10:10 Pulse Rate 64 09/14/18 10:10 Respiratory Rate 16 09/14/18 10:10 Blood Pressure 107/58 L 09/14/18 10:10 O2 Sat by Pulse Oximetry (%) 100 09/14/18 10:10 ED Treatment Course - LABORATORY CBC & Chemistry Diagram: 09/15/18 06:00 09/15/18 06:00 Medical Decision Making - Medical Decision Making The patient is an 83F w/ a history of T2DM, HTN, PVD s/p R BKA and stenting who presents [facility] for evaluation of AMS 09/14/18 11:14 No leukocytosis No anemia Trop I neg UA w/o evidence of UTI 09/14/18 13:10 CXR w/o evidence of PNA Will obtain a head CT to evaluate for etiology of AMS -Patient continues to be lethargic and is now shortly arousable to touch (no longer easily arouable to verbal as she was on presentation) 09/14/18 13:28 ELVIE, Cr. 2.8, baseline <1 CT w/o evidence of acute bleed for 09/14/18 14:49 Plan for admission for further evaluation of increasing lethargy and ELVIE Dispo: admit *DC/Admit/Observation/Transfer Diagnosis at time of Disposition: HTN (hypertension) Qualifiers: Hypertension type: unspecified Qualified Code(s): I10 - Essential (primary) hypertension S/P BKA (below knee amputation) Qualifiers: Laterality: right Qualified Code(s): Z89.511 - Acquired absence of right leg below knee - Discharge Dispostion Condition at time of disposition: Good Decision to Admit order: Yes - Referrals - Patient Instructions - Post Discharge Activity
--- NOTE | 2018-09-14 11:30 | PDOC ---
Attending Attestation - HPI HPI: 09/14/18 12:38 The patient is a 83 year old female with a significant past medical history of hypertension, diabetes, cholecystitis s/p IR drainage, and PVD s/p right BKA and stent placement( about 1 week ago) who presents to the emergency department via EMS (from [facility]) with lethargy since earlier today. The patient was recently discharged from the hospital several days ago. As per patient's daughter at bedside the patients baseline is normally oriented intermittently and she requires some assistance to do thing. The patient's daughter states that the patient has been experiencing some change in movement of her upper extremities bilaterally. It is note that the patient is somewhat below her baseline status. Documentation prepared by Marci Castrejon, acting as medical pathology teacher for Jasmeet Ferraro MD. - Physicial Exam PE: 09/14/18 12:48 Vitals: Triage vital signs reviewed General Appearance: No acute distress, well nourished, well developed Head: Atraumatic Neck: Supple; No nuchal rigidity Chest Wall: Nontender Cardiac: Regular rate and rhythm, no murmurs, no rubs, no gallops Lungs: Clear to auscultation bilateral, good air movement bilaterally Abdomen: Soft, nondistended, normal bowel sounds, nontender to palpation Genitourinary: Rectal: Exam deferred Extremities: Full range of motion to all extremities, no cyanosis, clubbing, or edema Skin: Warm and dry, no rashes or lesions, no rash, no petechiae Neuro: Cranial Nerves 2-12 grossly intact, Strength intact to all extremities, Sensation intact to all extremities (moving all extremities.) Psych: Normal mood, normal affect Documentation prepared by Marci Castrejon, acting as medical pathology teacher for Jasmeet Ferraro MD. <Marci Castrejon - Last Filed: 09/14/18 12:47> - Resident Resident Name: John Quinteros - ED Attending Attestation I have performed the following: I have examined & evaluated the patient, The case was reviewed & discussed with the resident, I agree w/resident's findings & plan, Exceptions are as noted - Medical Decision Making 09/14/18 16:06 83 years old with progressively worsening altered mental status has been at rehabilitation status post a BKA but is becoming more lethargic recently unable to care for self unable to feed and hydrate Our workup here in the emergency Department was unrevealing her laboratory analysis and urinalysis were unremarkable her head CT chest x-ray were also unremarkable patient is not a safe discharge back to rehabilitation given her lethargy and unable to care for self admit to hospital for IV hydration further management reevaluation of placement <Jasmeet Ferraro - Last Filed: 09/14/18 16:12> Heart Score/ECG Review - ECG Impressions Comment:: 09/14/18 16:11 <Jasmeet Ferraro - Last Filed: 09/14/18 16:12>
[2018-09-14 12:30] LABS: HEMATOCRIT 31.8 % (32.4-45.2); HEMOGLOBIN 9.8 GM/dL (10.7-15.3); MCH 26.1 pg (25.7-33.7); MCHC 30.9 g/dl (32.0-36.0); MEAN CELL VOLUME 84.4 fl (80-96); MEAN PLT VOLUME 7.8 fl (7.5-11.1); PLATELET COUNT 404 K/MM3 (134-434); RBC 3.76 M/mm3 (3.60-5.2); RDW 17.3 % (11.6-15.6); WHITE BLOOD COUNT 6.1 K/mm3 (4.0-10.0)
[2018-09-14 13:01] LABS: URINE APPEARANCE CLEAR; URINE BILIRUBIN NEGATIVE (<2.0 mg/dL); URINE COLOR AMBER; URINE GLUCOSE (UA) NEGATIVE (NEGATIVE); URINE KETONE NEGATIVE (NEGATIVE); URINE LEUK ESTERASE NEGATIVE (NEGATIVE); URINE NITRITE NEGATIVE (NEGATIVE); URINE PROTEIN NEGATIVE (NEGATIVE); URINE UROBILINOGEN NEGATIVE mg/dL (0.2-1.0)
[2018-09-14 13:20] LABS: ALBUMIN 2.7 g/dl (3.4-5.0); ALK PHOS 71 U/L (45-117); ANION GAP 8 MMOL/L (8-16); BILIRUBIN,TOTAL 0.4 mg/dL (0.2-1); BLOOD UREA NITROGEN 48 mg/dL (7-18); CALCIUM 8.5 mg/dL (8.5-10.1); CHLORIDE 96 mmol/L (98-107); CO2 27 mmol/L (21-32); CREATININE 2.8 mg/dL (0.55-1.3); GLUCOSE,RANDOM 168 mg/dL (74-106); SGOT/AST 48 U/L (15-37); SGPT/ALT 40 U/L (13-61); SODIUM 130 mmol/L (136-145); TOT PROT 7.5 g/dl (6.4-8.2)
--- NOTE | 2018-09-14 15:32 | EKG ---
Test Reason : Blood Pressure : / mmHG Vent. Rate : 064 BPM Atrial Rate : 064 BPM P-R Int : 212 ms QRS Dur : 098 ms QT Int : 414 ms P-R-T Axes : 038 005 057 degrees QTc Int : 427 ms SINUS RHYTHM WITH 1ST DEGREE A-V BLOCK ANTERIOR INFARCT , AGE UNDETERMINED ABNORMAL ECG WHEN COMPARED WITH ECG OF 29-AUG-2018 13:21, NO SIGNIFICANT CHANGE WAS FOUND Confirmed by TRIPP FAM, MEMO ([id number]) on 09/14/2018 3:32:20 PM Referred By: Confirmed By:MEMO ALMAGUER MD
[2018-09-14] MEDS ORDERED: SODIUM CHLORIDE 0.9% 1000 ML INFUS.BAG IV ONE (16:15)
[2018-09-14] MEDS ORDERED: oxyCODONE HCL 5 MG TABLET PO PRN (17:03)
--- NOTE | 2018-09-14 17:17 | HP ---
CHIEF COMPLAINT: Increased lethargy, poor PO intake, confusion PCP: [facility]. [facility] HISTORY OF PRESENT ILLNESS: 83 year old female with a PMH significant for DM s/p right foot amputation, DM, HTN, HLD presented to the ED from subacute rehab with increased lethargy, confusion and poor PO intake. Daughter was present and provided history. Daughter reports that ever since her mother was told she needed to have her right foot amputated on 08/07/18, she has fallen into a deep depression and has barely been eating. She believes she has lost about 30 lbs in the past month. She was in [facility] from 08/07 - 09/11 for the foot amputation and bile duct drain placement. She was seen by psych during that visit who started her on Cymbalta 20 mg. She was transferred to [facility] for subacute rehab. She was not able to participate much in rehab and was barely eating. Daughter is interested in comfort care for her mother and does not want to try to force interventions on her mother if she has lost her will to live. Upon admission to the ED, VSS, labs significant for BUN/Cr 48/2.8 (baseline cr 0.9), head CT and CXR unremarkable. Recent Travel: [place] in July PAST MEDICAL HISTORY: HTN HLD IDDM PAST SURGICAL HISTORY: Right foot amputation Cholecys Tubal Ligation Social History: 1 year ago, retired, has 6 adult children; 5 daughters and a son Smoking: Quit 40 years ago Alcohol: Denies Drugs: Denies Family History: DM: sister, brother, mother Ovarian cancer: Sister Lung cancer: brother Allergies Penicillins Allergy (Verified 08/07/18 12:35) HOME MEDICATIONS: Home Medications Medication Instructions Recorded Amlodipine Besylate [Norvasc -] 10 mg PO DAILY tablet 08/31/18 Atorvastatin Ca [Lipitor] 40 mg PO HS tablet 08/31/18 Docusate Sodium [Colace -] 100 mg PO BID capsule 08/31/18 Ferrous Sulfate 325 mg PO DAILY #30 tablet 08/31/18 Hydrochlorothiazide [Hctz -] 50 mg PO DAILY tablet 08/31/18 Insulin (Levemir) [Levemir Vial] 5 units SQ HS units 08/31/18 Insulin Sliding Scale [Novolog 1 vial SQ Q6H units 08/31/18 Vial Sliding Scale -] Losartan Potassium [Cozaar -] 100 mg PO DAILY tablet 08/31/18 Polyethylene Glycol 3350 [Miralax 17 gm PO BID bottle 08/31/18 119 gm Btl -] Sennosides [Senna -] 1 tab PO BID tablet 08/31/18 Acetaminophen [Tylenol .Regular 325 mg PO Q4H PRN 30 Days tablet 09/11/18 Strength -] Duloxetine HCl [Cymbalta] 20 mg PO DAILY #30 capsule. 09/11/18 Heparin - 5,000 unit SQ Q8H 28 Days ml 09/11/18 oxyCODONE HCL [Roxicodone -] 5 mg PO Q6H PRN 7 Days tablet MDD 09/11/18 25 REVIEW OF SYSTEMS CONSTITUTIONAL: (+) generalized weakness, malaise, loss of appetite, weight loss of 30 lbs in the past month Absent: fever, chills, diaphoresis, HEENT: Absent: rhinorrhea, nasal congestion, throat pain, throat swelling, difficulty swallowing, mouth swelling, ear pain, eye pain, visual changes CARDIOVASCULAR: Absent: chest pain, syncope, palpitations, irregular heart rate, lightheadedness , peripheral edema RESPIRATORY: Absent: cough, shortness of breath, dyspnea with exertion, orthopnea, wheezing, stridor, hemoptysis GASTROINTESTINAL: (+) Constipation Absent: abdominal pain, abdominal distension, nausea, vomiting, diarrhea, constipation, melena, hematochezia GENITOURINARY: Absent: dysuria, frequency, urgency, hesitancy, hematuria, flank pain, genital pain MUSCULOSKELETAL: (+) right stump pain Absent: myalgia, arthralgia, joint swelling, back pain, neck pain SKIN: Absent: rash, itching, pallor HEMATOLOGIC/IMMUNOLOGIC: Absent: easy bleeding, easy bruising, lymphadenopathy, frequent infections ENDOCRINE: Absent: unexplained weight gain, unexplained weight loss, heat intolerance, cold intolerance NEUROLOGIC: Absent: headache, focal weakness or paresthesias, dizziness, unsteady gait, seizure, mental status changes, bladder or bowel incontinence PSYCHIATRIC: (+) Depression Absent: anxiety, suicidal or homicidal ideation, hallucinations. PHYSICAL EXAMINATION Vital Signs - 24 hr 09/14/18 10:10 Temperature 96.9 F L Pulse Rate 64 Respiratory 16 Rate Blood Pressure 107/58 L O2 Sat by Pulse 100 Oximetry (%) GENERAL: Asleep, frail, elderly, alert to person only, in no acute distress. HEAD: Normal with no signs of trauma. EYES: Arcus senilis b/l, muddy sclera, pupils equal, round and reactive to light , extraocular movements intact, sclera anicteric, conjunctiva clear. No lid lag. EARS, NOSE, THROAT: Edentulous, nares patent, oropharynx clear without exudates. Moist mucous membranes. NECK: Normal range of motion, supple without lymphadenopathy, JVD, or masses. LUNGS: Breath sounds equal, clear to auscultation bilaterally. No wheezes, and no crackles. No accessory muscle use. HEART: Regular rate and rhythm, normal S1 and S2 without murmur, rub or gallop. ABDOMEN: + billiary drain in mid left abdomen with dark green fluid draining into bag, soft, nontender, not distended, normoactive bowel sounds, no guarding , no rebound, no masses. No hepatomegaly or splenomegaly. MUSCULOSKELETAL: Normal range of motion at all joints. No bony deformities or tenderness. No CVA tenderness. UPPER EXTREMITIES: 2+ pulses, warm, well-perfused. No cyanosis. No clubbing. No peripheral edema. LOWER EXTREMITIES: Right foot amputation with stabilization brace, incision edges well approximated, ileana intact, no drainage, erythema, edema or warmth , no peripheral edema. NEUROLOGICAL: Cranial nerves II-XII intact. Normal speech. Normal gait. PSYCHIATRIC: Fatigued, flat affect, minimally responsive to questions, poor eye contact SKIN: Warm, dry, normal turgor, no rashes or lesions noted, normal capillary refill. Laboratory Results - last 24 hr 09/14/18 09/14/18 09/14/18 12:05 12:05 12:05 WBC 6.1 RBC 3.76 Hgb 9.8 L Hct 31.8 L MCV 84.4 MCH 26.1 MCHC 30.9 L RDW 17.3 H Plt Count 404 D MPV 7.8 Sodium 130 L Potassium 5.0 Chloride 96 L Carbon Dioxide 27 Anion Gap 8 BUN 48 H Creatinine 2.8 H Creat Clearance w eGFR 16.22 Random Glucose 168 H Lactic Acid 0.9 Calcium 8.5 Total Bilirubin 0.4 AST 48 H ALT 40 Alkaline Phosphatase 71 Troponin I Total Protein 7.5 Albumin 2.7 L Urine Color Urine Appearance Urine pH Ur Specific [place] Urine Protein Urine Glucose (UA) Urine Ketones Urine Blood Urine Nitrite Urine Bilirubin Urine Urobilinogen Ur Leukocyte Esterase 09/14/18 09/14/18 12:05 12:30 WBC RBC Hgb Hct MCV MCH MCHC RDW Plt Count MPV Sodium Potassium Chloride Carbon Dioxide Anion Gap BUN Creatinine Creat Clearance w eGFR Random Glucose Lactic Acid Calcium Total Bilirubin AST ALT Alkaline Phosphatase Troponin I < 0.02 Total Protein Albumin Urine Color Rachelle Urine Appearance Clear Urine pH 5.0 Ur Specific [place] 1.021 Urine Protein Negative Urine Glucose (UA) Negative Urine Ketones Negative Urine Blood Negative Urine Nitrite Negative Urine Bilirubin Negative Urine Urobilinogen Negative Ur Leukocyte Esterase Negative ASSESSMENT/PLAN: 83 year old female with a PMH significant for DM s/p right foot amputation, DM, HTN, HLD presented to the ED from subacute rehab with increased lethargy, confusion and poor PO intake. Work up in the ED was largely negative, patient was admitted for failure to thrive. S/P right food amputation Pain management: - oxyCODONE 5 mg PO Q6H PRN - Acetaminophen 325 mg PO Q4H PRN ELVIE - BUN/Cr 48/2.8 - IV fluids - Nephrology consult ordered - Avoid nephrotoxins - Renally dose medications FTT - Start Remeron 15 mg PO QHS for appetite stimulant - Dietary and speech consult ordered Depression - Cymbalta 20 mg PO DAILY - Psych consult ordered Hyponatremia - 130 - Hold HCZT - IV NS - Monitor BMP DM - Finger stick monitoring - SS with Novolog - Levemir 5 units SQ HS HTN - Losartan Potassium 100 mg PO DAILY - Amlodipine 10 mg PO DAILY - HOLD home Hydrochlorothiazide 50 mg PO DAILY d/t hyponatremia - Monitor BP HLD - Atorvastatin 40 mg PO HS - AST slightly elevated at 48, monitor Iron deficiency anemia - H&H 9.8/31.8 - Ferrous Sulfate 325 mg PO DAILY - Monitor CBC Constipation - Senna 1 tab PO BID - Miralax 119 gm Btl -] 17 gm PO BID - Docusate 100 mg PO BID Prophylaxis - Heparin SQ FEN - NS @75 cc/hr - Replete as needed - DM, sodium controlled, soft diet, dietary and speech eval pending Disp: Patient requires further inpatient monitoring Visit type - Emergency Visit Emergency Visit: Yes ED Registration Date: 09/14/18 Care time: The patient presented to the Emergency Department on the above date and was hospitalized for further evaluation of their emergent condition. - New Patient This patient is new to me today: Yes Date on this admission: 09/14/18 - Critical Care Critical Care patient: No
[2018-09-14] MEDS: SODIUM CHLORIDE 1,000 ML IV SCH (17:46)
[2018-09-14 20:47] VITALS: BMI 23.1
[2018-09-14] MEDS: HEPARIN NA (PORCINE) 5,000 UNITS/ML 1ML VIAL SQ SCH (21:43)
[2018-09-14] MEDS: ATORVASTATIN CA 40 MG TABLET (FP) PO SCH (21:43)
[2018-09-14] MEDS: SENNOSIDES 8.6MG TABLET (FP) PO SCH (21:43)
[2018-09-14] MEDS: DOCUSATE SODIUM 100 MG CAPSULE (FP) PO SCH (21:43)
[2018-09-14] MEDS: INSULIN (LEVEMIR) 100 UNITS/ML UNITS SQ SCH (21:43)
[2018-09-14] MEDS ORDERED: MIRTAZAPINE 15 MG TABLET (FP) PO SCH (22:00)
[2018-09-14] MEDS: POLYETHYLENE GLYCOL 3350 119 GM BTL PO SCH (23:00)
[2018-09-15] MEDS: ACETAMINOPHEN 325 MG TABLET (FP) PO PRN ×2 (02:48→12:13)
[2018-09-15] MEDS ORDERED: ACETAMINOPHEN 325 MG TABLET (FP) PO PRN (04:57)
[2018-09-15] MEDS: HEPARIN NA (PORCINE) 5,000 UNITS/ML 1ML VIAL SQ SCH ×3 (06:30→21:22)
[2018-09-15] MEDS: INSULIN SLIDING SCALE (NOVOLOG) 1 VIAL SQ SCH ×3 (06:33→16:28)
[2018-09-15 07:27] LABS: HEMATOCRIT 27.3 % (32.4-45.2); HEMOGLOBIN 8.6 GM/dL (10.7-15.3); MCH 26.4 pg (25.7-33.7); MCHC 31.6 g/dl (32.0-36.0); MEAN CELL VOLUME 83.5 fl (80-96); MEAN PLT VOLUME 7.5 fl (7.5-11.1); PLATELET COUNT 348 K/MM3 (134-434); RBC 3.26 M/mm3 (3.60-5.2); RDW 16.9 % (11.6-15.6); WHITE BLOOD COUNT 5.2 K/mm3 (4.0-10.0)
[2018-09-15 07:54] LABS: ANION GAP 7 MMOL/L (8-16); BLOOD UREA NITROGEN 48 mg/dL (7-18); CALCIUM 8.1 mg/dL (8.5-10.1); CHLORIDE 101 mmol/L (98-107); CO2 27 mmol/L (21-32); CREATININE 1.3 mg/dL (0.55-1.3); GLUCOSE,RANDOM 121 mg/dL (74-106); MAGNESIUM 2.9 mg/dL (1.8-2.4); POTASSIUM 4.6 mmol/L (3.5-5.1); SODIUM 135 mmol/L (136-145)
[2018-09-15] MEDS ORDERED: HYDROCHLOROTHIAZIDE 50 MG TABLET PO SCH (10:00)
[2018-09-15] MEDS ORDERED: PT OWN MED DRAWER 7, Y5N ONE (10:22)
--- NOTE | 2018-09-15 10:26 | CON.NEP ---
Consult Consult Specialty:: nephrology Reason for Consultation:: misael - History of Present Illness History of Present Illness: 83 year old female with a PMH significant for DM s/p bka, DM, HTN, HLD presented to the ED from subacute rehab with increased lethargy, confusion and poor PO intake. Daughter was present and provided history. Daughter reports that ever since her mother was told she needed to have her amputation on 08/07/18 , she has fallen into a deep depression and has barely been eating. She believes she has lost about 30 lbs in the past month. She was in [facility] from 08/07 - 09/11 for the amputation and bile duct drain placement. She was seen by psych during that visit who started her on Cymbalta 20 mg. She was transferred to [facility] for subacute rehab. She was not able to participate much in rehab and was barely eating. The patient says she feels better and wants to go home. She is confused, asking for a phone from the wall but looking at the clock. She had an elevated creatinine but this has improved. - History Source History Provided By: Medical Record Limitations to Obtaining History: Clinical Condition - Past Medical History Cardio/Vascular: Yes: HTN Gastrointestinal: Yes: GERD ...: No Endocrine: Yes: Diabetes Mellitus - Past Surgical History Past Surgical History: Yes: - Alcohol/Substance Use Hx Alcohol Use: No - Smoking History Smoking history: Never smoked Have you smoked in the past 12 months: No - Social History Usual Living Arrangement: With Significant Other Home Medications - Allergies Allergies/Adverse Reactions: Allergies Allergy/AdvReac Type Severity Reaction Status Date / Time Penicillins Allergy Verified 08/07/18 12:35 - Home Medications Home Medications: Ambulatory Orders Amlodipine Besylate [Norvasc -] 10 mg PO DAILY tablet 08/31/18 Atorvastatin Ca [Lipitor] 40 mg PO HS tablet 08/31/18 Docusate Sodium [Colace -] 100 mg PO BID capsule 08/31/18 Ferrous Sulfate 325 mg PO DAILY #30 tablet 08/31/18 Hydrochlorothiazide [Hctz -] 50 mg PO DAILY tablet 08/31/18 Insulin (Levemir) [Levemir Vial] 5 units SQ HS units 08/31/18 Insulin Sliding Scale [Novolog Vial Sliding Scale -] 1 vial SQ Q6H units Losartan Potassium [Cozaar -] 100 mg PO DAILY tablet 08/31/18 Polyethylene Glycol 3350 [Miralax 119 gm Btl -] 17 gm PO BID bottle 08/31/18 Sennosides [Senna -] 1 tab PO BID tablet 08/31/18 Acetaminophen [Tylenol .Regular Strength -] 325 mg PO Q4H PRN 30 Days tablet Duloxetine HCl [Cymbalta] 20 mg PO DAILY #30 capsule.dr 09/11/18 Heparin - 5,000 unit SQ Q8H 28 Days ml 09/11/18 oxyCODONE HCL [Roxicodone -] 5 mg PO Q6H PRN 7 Days tablet MDD 25 09/11/18 Review of Systems - Review of Systems Constitutional: reports: No Symptoms Eyes: reports: No Symptoms HENT: reports: No Symptoms Neck: reports: No Symptoms Cardiovascular: reports: No Symptoms Respiratory: reports: No Symptoms Gastrointestinal: reports: No Symptoms Genitourinary: reports: No Symptoms Musculoskeletal: reports: No Symptoms Integumentary: reports: No Symptoms Neurological: reports: No Symptoms Endocrine: reports: No Symptoms Hematology/Lymphatic: reports: No Symptoms Nephrology Consult - Height Height: 5 ft 5 in - Weight Weight: 139 lb 3.2 oz - BMI Body Mass Index (BMI): 23.1 - Lab Results CBC,BMP: CBC, BMP 09/15/18 06:00 09/15/18 06:00 Anion Gap: Anion Gap Anion Gap 7 MMOL/L (8-16) L 09/15/18 06:00 - Imaging Chest X-ray: Report Reviewed (elevated right hemidiaphragm) - Physical Examination Vital Signs: Vital Signs Temperature 98.4 F 09/15/18 08:35 Pulse Rate 68 09/15/18 08:35 Respiratory Rate 16 09/15/18 08:35 Blood Pressure 130/58 L 09/15/18 08:35 O2 Sat by Pulse Oximetry (%) 97 09/14/18 21:00 Constitutional: Yes: Well Nourished, No Distress Eyes: Yes: Conjunctiva Clear HENT: Yes: Atraumatic, Normocephalic Neck: Yes: WNL Cardiovascular: Yes: Regular Rate and Rhythm Respiratory: Yes: CTA Bilaterally (anteriorly) Gastrointestinal: Yes: Normal Bowel Sounds, Soft, Other (has a biliary drain) Renal/: Yes: WNL Extremities: Yes: Amputation Edema: No Wound/Incision: Yes: Clean/Dry Neurological: Yes: Alert, Confusion Psychiatric: Yes: Alert Assessment/Plan IMPRESSION appears to have had misael from prerenal causes as she has improved with fluid. Note also her urine specific gravity which is high also has a benign looking urine. PLAN would continue hydration would do a work up if not improving further avoid hypotension and nephrotoxins surgical/GI/psych folllow up If cymbalta s a new drug would dc given hermental status MV
[2018-09-15] MEDS: DOCUSATE SODIUM 100 MG CAPSULE (FP) PO SCH ×2 (10:27→21:22)
[2018-09-15] MEDS: LOSARTAN POTASSIUM 50 MG TABLET (FP) PO SCH (10:27)
[2018-09-15] MEDS: amLODIPine BESYLATE 10 MG TABLET (FP) PO SCH (10:27)
[2018-09-15] MEDS: SENNOSIDES 8.6MG TABLET (FP) PO SCH ×2 (10:27→21:22)
[2018-09-15] MEDS: DULoxetine HCL 20 MG CAPSULE.DR (FP) PO SCH (10:27)
[2018-09-15] MEDS: FERROUS SO4 325 MG TABLET (FP) PO SCH (10:27)
[2018-09-15] MEDS: POLYETHYLENE GLYCOL 3350 119 GM BTL PO SCH ×2 (10:28→21:22)
--- NOTE | 2018-09-15 10:36 | PN ---
Physical Exam: SUBJECTIVE: Patient seen and examined at the bedside. family at bedside. they feel remeron is causing increased lethargy and somnolence as well as the use of oxycodone. OBJECTIVE: at 0200 101f noted. monitor fever curve. blood cultures pending uc no growth Period Temp Pulse Resp BP Sys/Reyes Pulse Ox Last 24 Hr 98.0 F-101.2 F 68-80 16-18 106-130/54-58 93-97 GENERAL: frail, lethargic, alert to person only and place, not time, in no acute distress. HEAD: Normal with no signs of trauma. EYES: pupils equal, round and reactive to light EARS, NOSE, THROAT: nares patent, oropharynx clear without exudates. Moist mucous membranes. NECK: Normal range of motion, supple without lymphadenopathy, JVD, or masses. LUNGS: Breath sounds equal, clear to auscultation bilaterally. HEART: Regular rate and rhythm, ABDOMEN: + billiary drain in mid right abdomen with small amt of dark green fluid draining into bag MUSCULOSKELETAL: Normal range of motion at all joints. No bony deformities or tenderness. No CVA tenderness. UPPER EXTREMITIES: No peripheral edema. LOWER EXTREMITIES: s/p Right foot amputation with stabilization brace, incision edges well approximated, ielana intact, no drainage NEUROLOGICAL: clear speech PSYCHIATRIC: flat affect, minimally responsive to questions, poor eye contact SKIN: Warm, dry, normal turgor, no rashes or lesions noted, normal capillary refill. Laboratory Results - last 24 hr 09/14/18 09/14/18 09/14/18 12:05 12:05 12:05 WBC 6.1 RBC 3.76 Hgb 9.8 L Hct 31.8 L MCV 84.4 MCH 26.1 MCHC 30.9 L RDW 17.3 H Plt Count 404 D MPV 7.8 Sodium 130 L Potassium 5.0 Chloride 96 L Carbon Dioxide 27 Anion Gap 8 BUN 48 H Creatinine 2.8 H Creat Clearance w eGFR 16.22 POC Glucometer Random Glucose 168 H Lactic Acid 0.9 Calcium 8.5 Magnesium Total Bilirubin 0.4 AST 48 H ALT 40 Alkaline Phosphatase 71 Troponin I Total Protein 7.5 Albumin 2.7 L Urine Color Urine Appearance Urine pH Ur Specific [place] Urine Protein Urine Glucose (UA) Urine Ketones Urine Blood Urine Nitrite Urine Bilirubin Urine Urobilinogen Ur Leukocyte Esterase 09/14/18 09/14/18 09/14/18 12:05 12:30 21:42 WBC RBC Hgb Hct MCV MCH MCHC RDW Plt Count MPV Sodium Potassium Chloride Carbon Dioxide Anion Gap BUN Creatinine Creat Clearance w eGFR POC Glucometer 188 Random Glucose Lactic Acid Calcium Magnesium Total Bilirubin AST ALT Alkaline Phosphatase Troponin I < 0.02 Total Protein Albumin Urine Color Rachelle Urine Appearance Clear Urine pH 5.0 Ur Specific [place] 1.021 Urine Protein Negative Urine Glucose (UA) Negative Urine Ketones Negative Urine Blood Negative Urine Nitrite Negative Urine Bilirubin Negative Urine Urobilinogen Negative Ur Leukocyte Esterase Negative 09/15/18 09/15/18 09/15/18 06:00 06:00 06:29 WBC 5.2 RBC 3.26 L Hgb 8.6 L Hct 27.3 L MCV 83.5 MCH 26.4 MCHC 31.6 L RDW 16.9 H Plt Count 348 MPV 7.5 Sodium 135 L Potassium 4.6 Chloride 101 Carbon Dioxide 27 Anion Gap 7 L BUN 48 H Creatinine 1.3 Creat Clearance w eGFR 39.31 POC Glucometer 135 Random Glucose 121 H Lactic Acid Calcium 8.1 L Magnesium 2.9 H Total Bilirubin AST ALT Alkaline Phosphatase Troponin I Total Protein Albumin Urine Color Urine Appearance Urine pH Ur Specific [place] Urine Protein Urine Glucose (UA) Urine Ketones Urine Blood Urine Nitrite Urine Bilirubin Urine Urobilinogen Ur Leukocyte Esterase Active Medications Generic Name Dose Route Start Last Admin Trade Name Freq PRN Reason Stop Dose Admin Acetaminophen 325 mg 09/14/18 17:03 09/15/18 02:48 Tylenol - PO 325 mg Q4H PRN Administration PAIN LEVEL 7 - 10 Acetaminophen 650 mg 09/15/18 04:57 Tylenol - PO Q4H PRN FEVER Amlodipine Besylate 10 mg 09/15/18 10:00 09/15/18 10:27 Norvasc - PO 10 mg DAILY FLYNN Administration Atorvastatin Calcium 40 mg 09/14/18 22:00 09/14/18 21:43 Lipitor - PO 40 mg HS FLYNN Administration Docusate Sodium 100 mg 09/14/18 22:00 09/15/18 10:27 Colace - PO 100 mg BID FLYNN Administration Duloxetine HCl 20 mg 09/15/18 10:00 09/15/18 10:27 Cymbalta - PO 20 mg DAILY FLYNN Administration Ferrous Sulfate 325 mg 09/15/18 10:00 09/15/18 10:27 Feosol - PO 325 mg DAILY FLYNN Administration Heparin Sodium (Porcine) 5,000 unit 09/14/18 22:00 09/15/18 06:30 Heparin - SQ 5,000 unit TID FLYNN Administration Sodium Chloride 1,000 mls @ 75 mls/hr 09/14/18 17:30 09/14/18 17:46 Normal Saline - IV 75 mls/hr ASDIR FLYNN Administration Insulin Aspart 1 vial 09/15/18 07:00 09/15/18 06:33 Novolog Vial Sliding Scale - SQ Not Given TIDAC [facility] Protocol Insulin Detemir 5 units 09/14/18 22:00 09/14/18 21:43 Levemir Vial SQ 5 units HS FLYNN Administration Losartan Potassium 100 mg 09/15/18 10:00 09/15/18 10:27 Cozaar - PO 100 mg DAILY FLYNN Administration Mirtazapine 15 mg 09/14/18 22:00 09/14/18 21:43 Remeron - PO 15 mg HS FLYNN Administration Oxycodone HCl 5 mg 09/14/18 17:03 Roxicodone - PO Q6H PRN PAIN LEVEL 6-10 Polyethylene Glycol 17 gm 09/14/18 22:00 09/15/18 10:28 Miralax (For Daily Use) - PO 17 gm BID FLYNN Administration Senna 1 tab 09/14/18 22:00 09/15/18 10:27 Senna - PO 1 tab BID FLYNN Administration ASSESSMENT/PLAN: Patient is an 83 year old female with a past medical history diabetes mellitus, s/p BKA amputation, DM, HTN, HLD presented to the ED from subacute rehab with increased lethargy, confusion and poor PO intake. On admission, she was noted to have ELVIE @ 43/1.3, with hyponatremia @130. Neuro: Acute metabolic encephalopathy Unknown etiology, but presents with evidence of dehydration, with hyponatremia and ELVIE mental status appears to be improving, able to state name and aware of where she is On IVF of NS @ 75cc/hr ELVIE resolved today with hydration Sodium improved 130>135 Noted to have hypermagnesium @ 2.9 on todays labs at 0200 101f noted. monitor fever curve. blood cultures pending uc no growth Muscular/skeletal s/p right BKA Pain managed Renal ELVIE Bun/creat: 48/2.8-> 43/1.3 Continue iv hydration renal following Hyponatremia, resolving Na 130>135 Holding hctz on NS Hypermag. monitor. currently 2.9. repeat in a.m. Adult Failure to Thrive Poor oral intake/failure to thrive Started on Remeron for appetite stimulant, but will d/c as it may be causing increased somnolence Dietary consulted for recommendation and to increase oral intake patient unable to feed self and dependent on ADLs Psyche: Depression On Cymbalta 20 mg PO DAILY psyche consulted Endocrine DM BGms, Novolog ss, levemir Card: Hypertension. stable On Losartan 100, Amlodipine 10 mg, HLD. chronic On statin therapy Heme: Iron deficiency anemia On ferrous sulfate fen NS @75 cc/hr Replete as needed DM, sodium controlled, soft diet, dietary and speech eval pending Prophylaxis Heparin SQ Visit type - Emergency Visit Emergency Visit: Yes ED Registration Date: 09/14/18 Care time: The patient presented to the Emergency Department on the above date and was hospitalized for further evaluation of their emergent condition. - New Patient This patient is new to me today: Yes Date on this admission: 09/15/18 - Critical Care Critical Care patient: No - Discharge Referral Referred to [facility] Med [facility] No
[2018-09-15] MEDS ORDERED: oxyCODONE HCL 5 MG TABLET PO PRN (11:23)
[2018-09-15] MEDS: SODIUM CHLORIDE 1,000 ML IV SCH (16:31)
[2018-09-15] MEDS ORDERED: INSULIN (NOVOLOG) ASPART 100 UNITS/ML 10ML VIAL ONE (20:57)
[2018-09-15] MEDS: ATORVASTATIN CA 40 MG TABLET (FP) PO SCH (21:22)
[2018-09-15] MEDS: INSULIN (LEVEMIR) 100 UNITS/ML UNITS SQ SCH (21:23)
[2018-09-16 05:33] VITALS: TEMP 98.4
[2018-09-16] MEDS: SODIUM CHLORIDE 1,000 ML IV SCH (05:51)
[2018-09-16] MEDS: HEPARIN NA (PORCINE) 5,000 UNITS/ML 1ML VIAL SQ SCH ×2 (05:52→13:35)
[2018-09-16] MEDS: INSULIN SLIDING SCALE (NOVOLOG) 1 VIAL SQ SCH ×2 (06:08→11:25)
[2018-09-16 08:21] VITALS: BP 153/90; PULSE 66
[2018-09-16 09:06] LABS: BASO % 0.3 % (0-2.0); EOS % 2.5 % (0-4.5); HEMATOCRIT 26.6 % (32.4-45.2); LYMPH % 23.4 % (8-40); MCH 27.9 pg (25.7-33.7); MCHC 33.8 g/dl (32.0-36.0); MEAN CELL VOLUME 82.7 fl (80-96); MEAN PLT VOLUME 7.1 fl (7.5-11.1); MONO % 12.5 % (3.8-10.2); NEUT % 61.3 % (42.8-82.8); PLATELET COUNT 362 K/MM3 (134-434); RBC 3.22 M/mm3 (3.60-5.2); RDW 16.6 % (11.6-15.6); WHITE BLOOD COUNT 4.7 K/mm3 (4.0-10.0)
[2018-09-16 09:29] LABS: ALBUMIN 2.3 g/dl (3.4-5.0); ALK PHOS 64 U/L (45-117); ANION GAP 6 MMOL/L (8-16); BILIRUBIN,TOTAL 0.3 mg/dL (0.2-1); BLOOD UREA NITROGEN 23 mg/dL (7-18); CALCIUM 7.9 mg/dL (8.5-10.1); CHLORIDE 106 mmol/L (98-107); CO2 26 mmol/L (21-32); CREATININE 0.6 mg/dL (0.55-1.3); GLUCOSE,RANDOM 140 mg/dL (74-106); MAGNESIUM 2.2 mg/dL (1.8-2.4); POTASSIUM 3.9 mmol/L (3.5-5.1); SGOT/AST 36 U/L (15-37); SGPT/ALT 34 U/L (13-61); SODIUM 138 mmol/L (136-145); TOT PROT 6.2 g/dl (6.4-8.2)
[2018-09-16] MEDS ORDERED: PT OWN MED DRAWER 7, Y5N ONE (09:44)
[2018-09-16] MEDS: DULoxetine HCL 20 MG CAPSULE.DR (FP) PO SCH (09:47)
[2018-09-16] MEDS: amLODIPine BESYLATE 10 MG TABLET (FP) PO SCH (09:47)
[2018-09-16] MEDS: FERROUS SO4 325 MG TABLET (FP) PO SCH (09:47)
[2018-09-16] MEDS: SENNOSIDES 8.6MG TABLET (FP) PO SCH (09:47)
[2018-09-16] MEDS: LOSARTAN POTASSIUM 50 MG TABLET (FP) PO SCH (09:47)
[2018-09-16] MEDS: DOCUSATE SODIUM 100 MG CAPSULE (FP) PO SCH (09:47)
[2018-09-16] MEDS: POLYETHYLENE GLYCOL 3350 119 GM BTL PO SCH (09:49)
--- NOTE | 2018-09-16 10:19 | DS ---
Physical Exam: SUBJECTIVE: Patient seen and examined OBJECTIVE: Vital Signs Period Temp Pulse Resp BP Sys/Reyes Pulse Ox Last 24 Hr 98.0 F-98.4 F 63-77 16-20 118-154/50-90 98 PHYSICAL EXAM GENERAL: The patient is awake, alert, and fully oriented, in no acute distress. HEAD: Normal with no signs of trauma. EYES: PERRL, extraocular movements intact, sclera anicteric, conjunctiva clear. ENT: Ears normal, nares patent, oropharynx clear without exudates, moist mucous membranes. NECK: Trachea midline, full range of motion, supple. LUNGS: Breath sounds equal, clear to auscultation bilaterally, no wheezes, no crackles, no accessory muscle use. HEART: Regular rate and rhythm, S1, S2 without murmur, rub or gallop. ABDOMEN: Soft, nontender, nondistended, normoactive bowel sounds, no guarding, no rebound, no hepatosplenomegaly, no masses. EXTREMITIES: 2+ pulses, warm, well-perfused, no edema. NEUROLOGICAL: Cranial nerves II through XII grossly intact. Normal speech, gait not observed. PSYCH: Normal mood, normal affect. SKIN: Warm, dry, normal turgor, no rashes or lesions noted. LABS Laboratory Results - last 24 hr 09/15/18 09/15/18 09/15/18 11:21 16:26 21:21 WBC RBC Hgb Hct MCV MCH MCHC RDW Plt Count MPV Absolute Neuts (auto) Neutrophils % Lymphocytes % Monocytes % Eosinophils % Basophils % Nucleated RBC % Sodium Potassium Chloride Carbon Dioxide Anion Gap BUN Creatinine Creat Clearance w eGFR POC Glucometer 210 172 167 Random Glucose Calcium Magnesium Total Bilirubin AST ALT Alkaline Phosphatase Total Protein Albumin 09/16/18 09/16/18 09/16/18 05:50 09:00 09:00 WBC 4.7 RBC 3.22 L Hgb 9.0 L Hct 26.6 L MCV 82.7 MCH 27.9 MCHC 33.8 RDW 16.6 H Plt Count 362 MPV 7.1 L Absolute Neuts (auto) 2.9 Neutrophils % 61.3 Lymphocytes % 23.4 D Monocytes % 12.5 H Eosinophils % 2.5 D Basophils % 0.3 Nucleated RBC % 0 Sodium 138 Potassium 3.9 Chloride 106 Carbon Dioxide 26 Anion Gap 6 L BUN 23 H Creatinine 0.6 Creat Clearance w eGFR > 60 POC Glucometer 134 Random Glucose 140 H Calcium 7.9 L Magnesium 2.2 Total Bilirubin 0.3 AST 36 ALT 34 Alkaline Phosphatase 64 Total Protein 6.2 L Albumin 2.3 L HOSPITAL COURSE: Date of Admission:09/14/18 Date of Discharge: 09/16/18 Discharge Summary Reason For Visit: STATUS POST BELOW KNEE AMPUTATION,AMS Current Active Problems HTN (hypertension) (Chronic) S/P BKA (below knee amputation) (Chronic) Condition: Good - Instructions - Home Medications Comprehensive Discharge Medication List: Ambulatory Orders Amlodipine Besylate [Norvasc -] 10 mg PO DAILY tablet 08/31/18 Atorvastatin Ca [Lipitor] 40 mg PO HS tablet 08/31/18 Docusate Sodium [Colace -] 100 mg PO BID capsule 08/31/18 Ferrous Sulfate 325 mg PO DAILY #30 tablet 08/31/18 Hydrochlorothiazide [Hctz -] 50 mg PO DAILY tablet 08/31/18 Insulin (Levemir) [Levemir Vial] 5 units SQ HS units 08/31/18 Insulin Sliding Scale [Novolog Vial Sliding Scale -] 1 vial SQ Q6H units Losartan Potassium [Cozaar -] 100 mg PO DAILY tablet 08/31/18 Polyethylene Glycol 3350 [Miralax 119 gm Btl -] 17 gm PO BID bottle 08/31/18 Sennosides [Senna -] 1 tab PO BID tablet 08/31/18 Acetaminophen [Tylenol .Regular Strength -] 325 mg PO Q4H PRN 30 Days tablet Duloxetine HCl [Cymbalta] 20 mg PO DAILY #30 capsule. 09/11/18 Heparin - 5,000 unit SQ Q8H 28 Days ml 09/11/18 oxyCODONE HCL [Roxicodone -] 5 mg PO Q6H PRN 7 Days tablet MDD 25 09/11/18 - Discharge Referral Referred to [facility] No
--- NOTE | 2018-09-16 10:34 | PN ---
Progress Note (short form) - Note Progress Note: RENAL pt seen and examined. SHe is comfortbale lying flat Just had breakfast Last Vital Signs Temp Pulse Resp BP Pulse Ox 98.4 F 66 16 153/90 98 09/16/18 08:21 09/16/18 08:21 09/16/18 08:21 09/16/18 08:21 09/15/18 22:00 lungs clear cvs s1s2 rr abd soft ext no edema, BKA R neuro somnolent, but responds to questions CBC, BMP 09/16/18 09:00 09/16/18 09:00 Current Medications Generic Name Dose Route Start Last Admin Trade Name Freq PRN Reason Stop Dose Admin Acetaminophen 325 mg 09/14/18 17:03 09/15/18 12:13 Tylenol - PO 325 mg Q4H PRN Administration PAIN LEVEL 7 - 10 Acetaminophen 650 mg 09/15/18 04:57 Tylenol - PO Q4H PRN FEVER Amino Acids 30 ml 09/16/18 17:30 Prosource No Carb Liquid Pkt PO BID@0800,1730 FLYNN Amlodipine Besylate 10 mg 09/15/18 10:00 09/16/18 09:47 Norvasc - PO 10 mg DAILY FLYNN Administration Atorvastatin Calcium 40 mg 09/14/18 22:00 09/15/18 21:22 Lipitor - PO 40 mg HS FLYNN Administration Docusate Sodium 100 mg 09/14/18 22:00 09/16/18 09:47 Colace - PO 100 mg BID FLYNN Administration Duloxetine HCl 20 mg 09/15/18 10:00 09/16/18 09:47 Cymbalta - PO 20 mg DAILY FLYNN Administration Ferrous Sulfate 325 mg 09/15/18 10:00 09/16/18 09:47 Feosol - PO 325 mg DAILY FLYNN Administration Heparin Sodium (Porcine) 5,000 unit 09/14/18 22:00 09/16/18 05:52 Heparin - SQ 5,000 unit TID FLYNN Administration Sodium Chloride 1,000 mls @ 75 mls/hr 09/14/18 17:30 09/16/18 05:51 Normal Saline - IV 75 mls/hr ASDIR FLYNN Administration Insulin Aspart 1 vial 09/15/18 07:00 09/16/18 06:08 Novolog Vial Sliding Scale - SQ Not Given TIDAC FLY[facility] Protocol Insulin Detemir 5 units 09/14/18 22:00 09/15/18 21:23 Levemir Vial SQ 5 units HS FLYNN Administration Losartan Potassium 100 mg 09/15/18 10:00 09/16/18 09:47 Cozaar - PO 100 mg DAILY FLYNN Administration Oxycodone HCl 5 mg 09/15/18 11:23 09/15/18 12:12 Roxicodone - PO 5 mg Q8H PRN Administration PAIN LEVEL 6-10 Polyethylene Glycol 17 gm 09/14/18 22:00 09/16/18 09:49 Miralax (For Daily Use) - PO 17 gm BID FLYNN Administration Senna 1 tab 09/14/18 22:00 09/16/18 09:47 Senna - PO 1 tab BID FLYNN Administration IMPRESSION ELVIE has resolved BUN remains elevated, suggesting volume depletion PLAN can be discharged from renal perspective encourage po fluids will need to have mentation evaluated MV
--- NOTE | 2018-09-16 10:49 | DS ---
Physical Exam: SUBJECTIVE: Patient seen and examined at the bedside. awake, more alert, conversing with family. patent denies pain, denies dizziness, denies chest pain. tj ate 100% of her breakfast this morning without difficulty. she is a total feed. OBJECTIVE: for [facility] Vital Signs Period Temp Pulse Resp BP Sys/Reyes Pulse Ox Last 24 Hr 98.0 F-98.4 F 63-77 16-20 118-154/50-90 98 PHYSICAL EXAM GENERAL: awake, alert to person only and place, not time, in no acute distress. HEAD: Normal with no signs of trauma. EYES: pupils equal, round and reactive to light EARS, NOSE, THROAT: nares patent, oropharynx clear without exudates. Moist mucous membranes. NECK: Normal range of motion, supple without lymphadenopathy, JVD, or masses. LUNGS: Breath sounds equal, clear to auscultation bilaterally. HEART: Regular rate and rhythm, ABDOMEN: + billiary drain in mid right abdomen with small amt of dark green fluid draining into bag MUSCULOSKELETAL: Normal range of motion at all joints. No bony deformities or tenderness. No CVA tenderness. UPPER EXTREMITIES: No peripheral edema. LOWER EXTREMITIES: s/p Right foot amputation with stabilization brace, incision edges well approximated, ileana intact, no drainage NEUROLOGICAL: clear speech PSYCHIATRIC: more awake and alert, conversive, answering questions appropriately SKIN: Warm, dry, normal turgor, no rashes or lesions noted, normal capillary refill. LABS Laboratory Results - last 24 hr 09/15/18 09/15/18 09/15/18 11:21 16:26 21:21 WBC RBC Hgb Hct MCV MCH MCHC RDW Plt Count MPV Absolute Neuts (auto) Neutrophils % Lymphocytes % Monocytes % Eosinophils % Basophils % Nucleated RBC % Sodium Potassium Chloride Carbon Dioxide Anion Gap BUN Creatinine Creat Clearance w eGFR POC Glucometer 210 172 167 Random Glucose Calcium Magnesium Total Bilirubin AST ALT Alkaline Phosphatase Total Protein Albumin 09/16/18 09/16/18 09/16/18 05:50 09:00 09:00 WBC 4.7 RBC 3.22 L Hgb 9.0 L Hct 26.6 L MCV 82.7 MCH 27.9 MCHC 33.8 RDW 16.6 H Plt Count 362 MPV 7.1 L Absolute Neuts (auto) 2.9 Neutrophils % 61.3 Lymphocytes % 23.4 D Monocytes % 12.5 H Eosinophils % 2.5 D Basophils % 0.3 Nucleated RBC % 0 Sodium 138 Potassium 3.9 Chloride 106 Carbon Dioxide 26 Anion Gap 6 L BUN 23 H Creatinine 0.6 Creat Clearance w eGFR > 60 POC Glucometer 134 Random Glucose 140 H Calcium 7.9 L Magnesium 2.2 Total Bilirubin 0.3 AST 36 ALT 34 Alkaline Phosphatase 64 Total Protein 6.2 L Albumin 2.3 L HOSPITAL COURSE: Patient is an 83 year old female with a past medical history diabetes mellitus, s/p BKA amputation, DM, HTN, HLD presented to the ED from subacute rehab with increased lethargy, confusion and poor PO intake. On admission, she was noted to have ELVIE @ 43/1.3, with hyponatremia @130. Neuro: Acute metabolic encephalopathy. resolved Unknown etiology, but presents with evidence of dehydration, with hyponatremia and ELVIE. mental status much improved, back to baseline. able to state name and aware of where she is. conversing with family. Patient was hydrated with NS since admiossion. ELVIE resolved today with hydration Sodium improved 130>138 blood cultures pending urine cultures with no growth Muscular/skeletal s/p right BKA Pain managed. will need outpatient vascular follow up. Renal Acute kidney injury, resolved Hyponatremia, resolved Hypermag.resolved Adult Failure to Thrive Poor oral intake/failure to thrive. chronic Started on Remeron for appetite stimulant, but will d/c as it may be causing increased somnolence Dietary to follow outpatient patient unable to feed self and dependent on ADLs Psyche: Depression, chronic On Cymbalta 20 mg PO DAILY Endocrine DM, chronic BGms, Novolog ss, levemir Card: Hypertension. stable On Losartan 100, Amlodipine 10 mg, HCTZ HLD. chronic On statin therapy Heme: Iron deficiency anemia On ferrous sulfate Date of Admission:09/14/18 Date of Discharge: 09/16/18 Minutes to complete discharge: 60 Discharge Summary Reason For Visit: STATUS POST BELOW KNEE AMPUTATION,AMS Current Active Problems HTN (hypertension) (Chronic) S/P BKA (below knee amputation) (Chronic) Condition: Improved - Instructions Diet, Activity, Other Instructions: Mrs Pruett: You were placed under observation at [facility] for confusion and lethargy and will be discharged back to [facility] today. Here are our recommendations: #Acute metabolic encephalopathy/confusion/lethargy. resolved On admission, you were noted to have ELVIE @ 43/1.3, with hyponatremia @130. This has been resolved with IV fluids and increased food intake. Please recheck kidney function within 3 days after discharge so that your kidney function can be closely monitored. Your Blood and cultures are negative #Adult Failure to Thrive Poor oral intake/failure to thrive Started on Remeron for appetite stimulant, but was discontinued as it may be causing increased somnolence Please do not continue this medication, instead please have dietary/ sharepoint application developer evaluate at facility. #Depression On Cymbalta 20 mg PO DAILY #Right BKA Below Knee Amputation with Dr Cates. Please see Dr Cates in 1 week. You will need the ileana to be removed. Also continue with heparin while you are at the facility, this will reduce the risk of blood clots from forming. #Gall Bladder drainage It is imperative that you follow up with the General Surgeon, Dr Todd Andrade in 2 weeks to evaluate your gallbladder and cholecystostomy tube. If your gallbladder is not removed and you need to maintain this tube it will need to be exchanged every 3 months. THis will prevent infection from developing. follow ups You primary Care physician. If you do not have a primary care physician, you may follow up at our Medical Clinic. A referral has been printed in your discharge papers. Dr Mendez . Dr Todd Andrade MD- Surgeon (for your Gall Bladder and Cholecystostomy tube ) Dr William Cates MD- Vascular Surgeon in 1 week. Change dressing every other day (4x4/kacey) Referrals: Bashir Mendez MD [Staff Physician] - [facility] - Home Medications Comprehensive Discharge Medication List: Ambulatory Orders Amlodipine Besylate [Norvasc -] 10 mg PO DAILY tablet 08/31/18 Atorvastatin Ca [Lipitor] 40 mg PO HS tablet 08/31/18 Docusate Sodium [Colace -] 100 mg PO BID capsule 08/31/18 Ferrous Sulfate 325 mg PO DAILY #30 tablet 08/31/18 Hydrochlorothiazide [Hctz -] 50 mg PO DAILY tablet 08/31/18 Insulin (Levemir) [Levemir Vial] 5 units SQ HS units 08/31/18 Insulin Sliding Scale [Novolog Vial Sliding Scale -] 1 vial SQ Q6H units Losartan Potassium [Cozaar -] 100 mg PO DAILY tablet 08/31/18 Polyethylene Glycol 3350 [Miralax 119 gm Btl -] 17 gm PO BID bottle 08/31/18 Sennosides [Senna -] 1 tab PO BID tablet 08/31/18 Acetaminophen [Tylenol .Regular Strength -] 325 mg PO Q4H PRN 30 Days tablet Duloxetine HCl [Cymbalta] 20 mg PO DAILY #30 capsule. 09/11/18 Heparin - 5,000 unit SQ Q8H 28 Days ml 09/11/18 oxyCODONE HCL [Roxicodone -] 5 mg PO Q6H PRN 7 Days tablet MDD 25 09/11/18 Amino Acids/Protein Hydrolys [Prosource No Carb Liquid Pkt] 30 ml PO BID@0800, 1730 #60 packet 09/16/18 This patient is new to me today: No Emergency Visit: Yes ED Registration Date: 09/14/18 Care time: The patient presented to the Emergency Department on the above date and was hospitalized for further evaluation of their emergent condition. Critical Care patient: No - Discharge Referral Referred to [facility] No
--- NOTE | 2018-09-16 12:40 | CON.PSY ---
Psychiatry Consult Chief Complaint: 83 year old female seen for Psych eval for confusion. patient had been [id number] up untill a small procedure on her vfoot beacme a major medical issue resultinh in an amputation. Patient according to omar became very despondent. Symptoms: reports: Depressed Mood, Anhedonia - Previous Psychiatric Treatment Outpatient: None Inpatient: None - Previous Substance Abuse Treatment Outpatient: None Inpatient: None - Current Medications Current Medications: Active Medications Acetaminophen (Tylenol -) 325 mg PO Q4H PRN PRN Reason: PAIN LEVEL 7 - 10 Last Admin: 09/15/18 12:13 Dose: 325 mg Acetaminophen (Tylenol -) 650 mg PO Q4H PRN PRN Reason: FEVER Amino Acids (Prosource No Carb Liquid Pkt) 30 ml PO BID@0800,1730 [facility] Amlodipine Besylate (Norvasc -) 10 mg PO DAILY [facility] Last Admin: 09/16/18 09:47 Dose: 10 mg Atorvastatin Calcium (Lipitor -) 40 mg PO HS [facility] Last Admin: 09/15/18 21:22 Dose: 40 mg Docusate Sodium (Colace -) 100 mg PO BID [facility] Last Admin: 09/16/18 09:47 Dose: 100 mg Duloxetine HCl (Cymbalta -) 20 mg PO DAILY [facility] Last Admin: 09/16/18 09:47 Dose: 20 mg Ferrous Sulfate (Feosol -) 325 mg PO DAILY [facility] Last Admin: 09/16/18 09:47 Dose: 325 mg Heparin Sodium (Porcine) (Heparin -) 5,000 unit SQ TID [facility] Last Admin: 09/16/18 05:52 Dose: 5,000 unit Sodium Chloride (Normal Saline -) 1,000 mls @ 75 mls/hr IV ASDIR [facility] Last Admin: 09/16/18 05:51 Dose: 75 mls/hr Insulin Aspart (Novolog Vial Sliding Scale -) 1 vial SQ TIDAC [facility]; Protocol Last Admin: 09/16/18 11:25 Dose: 2 units Insulin Detemir (Levemir Vial) 5 units SQ HS [facility] Last Admin: 09/15/18 21:23 Dose: 5 units Losartan Potassium (Cozaar -) 100 mg PO DAILY [facility] Last Admin: 09/16/18 09:47 Dose: 100 mg Oxycodone HCl (Roxicodone -) 5 mg PO Q8H PRN PRN Reason: PAIN LEVEL 6-10 Last Admin: 09/15/18 12:12 Dose: 5 mg Polyethylene Glycol (Miralax (For Daily Use) -) 17 gm PO BID [facility] Last Admin: 09/16/18 09:49 Dose: 17 gm Senna (Senna -) 1 tab PO BID [facility] Last Admin: 09/16/18 09:47 Dose: 1 tab - Allergies Allergies: Allergies Allergy/AdvReac Type Severity Reaction Status Date / Time Penicillins Allergy Verified 08/07/18 12:35 - Current Living Status Usual Living Arrangement: Custodial - Current Mental Status Evaluation Appearance: Well Groomed Attitude: Cooperative - Affect Affect: Constrictive Appropriateness: Appropriate to Content - Mood Mood: Depressed - Speech/Language Expressive: Coherent - Psychomotor Activity Psychomotor Activity: Slowed - Thought Process Thought Process: Intact - Thought Content Hallucinations: Absent Delusions: Absent - Self Perception Self Perception: No Impairment - Cognition Attention: Alert Orientation: Time Memory, Immediate Recall: Intact Memory, Short Term: 2/3 Memory, Remote with Promptin/3 - Concentration Serial Sevens Intact: No Simple Calculations Intact: Yes - Abstraction Proverb Interpretation: Intact Judgement: Minimally Impaired - Insight Insight: Intact - Impulse Control Impulse Control: Minimally Impaired - Suicidal Ideation Suicidal Ideation: No - Homicidal Ideation Homicidal Ideation: No Assessment/Plan 1) continue with Cymbalta 20mg po od. 2) Acute AMS could be the combination of Cymbalta and REneron and Pain meds.
[2018-09-16] MEDS ORDERED: AMINO ACIDS/PROTEIN HYDROLYS 30 ML LIQUID.PKT PO SCH (17:30)
== END 2018-09-16 13:15 ==
LOC: JER 10:08 → JERBED 13:30 → J6S 19:15
PROVIDERS: ATTEND Nurse Practitioner Family
PROC: 3E0337Z Introduction of Electrolytic and Water Balance Substance into Peripheral Vein, Percutaneous Approach (ICD-10-PCS; principal; 2018-09-14)
PROC: 3E013VG Introduction of Insulin into Subcutaneous Tissue, Percutaneous Approach (ICD-10-PCS; 2018-09-14)
DX: R41.82 Altered mental status, unspecified (principal); I10 Essential (primary) hypertension; E11.9 Type 2 diabetes mellitus without complications; I73.9 Peripheral vascular disease, unspecified; Z89.511 Acquired absence of right leg below knee; Z79.4 Long term (current) use of insulin; Z88.0 Allergy status to penicillin; N17.9 Acute kidney failure, unspecified; R62.51 Failure to thrive (child); F32.9 Major depressive disorder, single episode, unspecified; E87.1 Hypo-osmolality and hyponatremia; E78.5 Hyperlipidemia, unspecified; D50.9 Iron deficiency anemia, unspecified; K59.00 Constipation, unspecified; G93.41 Metabolic encephalopathy
CPT/HCPCS: 36415; 70450-TC; 71045-TC-FY; 80048; 80053; 81003; 82962; 83605; 83735; 84484; 85025; 85027; 87040; 87086; 93005; 93010; 96372; 97116-GP; 97161-GP; 99283-25; G0378; J1644; J7030

== ENCOUNTER 2018-10-22 00:26 | Inpatient (IN) | payer OTHER ==
--- NOTE | 2018-10-22 00:58 | PDOC ---
History of Present Illness - General History Source: Patient Exam Limitations: No Limitations - History of Present Illness Initial Comments: 10/22/18 02:01 The patient is a 83 year old female with a significant past medical history of HTN, DM, cholecystitis s/p IR drainage (10/19), and PVD s/p right BKA (2017) and stent placement who presents to the ED complaining of cholecystostomy drain complications earlier today. The patient states she was moving around in bed when her cholecystostomy drain came out. Patient denies pain and has no complains upon arrival to the ED. Denies fever or chills. Denies vomiting or nausea. Denies abdominal pain and diarrhea. Denies any other symptoms. <Gaudencio Ryan - Last Filed: 10/22/18 02:01> <Tori Wilson - Last Filed: 10/22/18 06:36> - General Chief Complaint: Wound Stated Complaint: accidental removal of domingo gilbert Time Seen by Provider: 10/22/18 00:58 Past History <Gaudencio Ryan - Last Filed: 10/22/18 02:01> - Past Medical History Anemia: No Asthma: No Cancer: No Cardiac Disorders: No CVA: No COPD: No CHF: No Dementia: No Diabetes: Yes GI Disorders: No Disorders: No HTN: Yes Hypercholesterolemia: No Liver Disease: No Seizures: No Thyroid Disease: No - Surgical History Abdominal Surgery: No Appendectomy: No Cardiac Surgery: No Cholecystectomy: No Lung Surgery: No Neurologic Surgery: No Orthopedic Surgery: No - Suicide/Smoking/Psychosocial Hx Smoking History: Never smoked Have you smoked in the past 12 months: No Information on smoking cessation initiated: No Hx Alcohol Use: No Drug/Substance Use Hx: No Substance Use Type: None Hx Substance Use Treatment: No <Tori Wilson - Last Filed: 10/22/18 06:36> - Past Medical History Allergies/Adverse Reactions: Allergies Allergy/AdvReac Type Severity Reaction Status Date / Time Penicillins Allergy Verified 10/22/18 00:51 Home Medications: Ambulatory Orders Amlodipine Besylate [Norvasc -] 10 mg PO DAILY tablet 08/31/18 Atorvastatin Ca [Lipitor] 40 mg PO HS tablet 08/31/18 Docusate Sodium [Colace -] 100 mg PO BID capsule 08/31/18 Ferrous Sulfate 325 mg PO DAILY #30 tablet 08/31/18 Hydrochlorothiazide [Hctz -] 50 mg PO DAILY tablet 08/31/18 Insulin (Levemir) [Levemir Vial] 5 units SQ HS units 08/31/18 Insulin Sliding Scale [Novolog Vial Sliding Scale -] 1 vial SQ Q6H units Losartan Potassium [Cozaar -] 100 mg PO DAILY tablet 08/31/18 Polyethylene Glycol 3350 [Miralax 119 gm Btl -] 17 gm PO BID bottle 08/31/18 Acetaminophen [Tylenol .Regular Strength -] 325 mg PO Q4H PRN 30 Days tablet Heparin - 5,000 unit SQ Q8H 28 Days ml 09/11/18 Bacitracin - [Bacitracin Topical Ointment -] 1 applic TP DAILY 10/22/18 Duloxetine HCl [Cymbalta] 30 mg PO HS 10/22/18 Sennosides [Senna -] 2 tab PO BID 10/22/18 oxyCODONE HCL [Roxicodone -] 5 mg PO Q6H MDD 25 10/22/18 Review of Systems - Review of Systems Able to Perform ROS?: Yes Comments:: 10/22/18 02:02 CONSTITUTIONAL: Absent: fever, chills, diaphoresis, generalized weakness, malaise, loss of appetite HEENT: Absent: rhinorrhea, nasal congestion, throat pain, throat swelling, difficulty swallowing, mouth swelling, ear pain, eye pain, visual Changes CARDIOVASCULAR: Absent: chest pain, syncope, palpitations, irregular heart rate, lightheadedness , peripheral edema RESPIRATORY: Absent: cough, shortness of breath, dyspnea with exertion, orthopnea, wheezing, stridor, hemoptysis GASTROINTESTINAL:+ cholecystostomy drain complications Absent: abdominal pain, abdominal distension, nausea, vomiting, diarrhea, constipation, melena, hematochezia GENITOURINARY: Absent: dysuria, frequency, urgency, hesitancy, hematuria, flank pain, genital pain MUSCULOSKELETAL: Absent: myalgia, arthralgia, joint swelling SKIN: Absent: rash, itching, pallor HEMATOLOGIC/IMMUNOLOGIC: Absent: easy bleeding, easy bruising, lymphadenopathy, frequent infections ENDOCRINE: Absent: unexplained weight gain, unexplained weight loss, heat intolerance, cold intolerance NEUROLOGIC: Absent: headache, focal weakness or paresthesias, dizziness, unsteady gait, seizure, mental status changes, bladder or bowel incontinence PSYCHIATRIC: Absent: anxiety, depression, suicidal or homicidal ideation, hallucinations. All Other Systems: Reviewed and Negative <Gaudencio Ryan - Last Filed: 10/22/18 02:01> *Physical Exam - Vital Signs Last Vital Signs Temp Pulse Resp BP Pulse Ox 97.7 F 78 16 149/74 98 10/22/18 00:49 10/22/18 00:49 10/22/18 00:49 10/22/18 00:49 10/22/18 00:49 - Physical Exam Comments: 10/22/18 02:02 GENERAL: Well developed, well nourished. Awake and alert. No acute distress. HEENT: Normocephalic, atraumatic. PERRLA, EOMI. No conjunctival pallor. Sclera are non- icteric. Moist mucous membranes. Oropharynx is clear. NECK: Supple. Full ROM. No JVD. Carotid pulses 2+ and symmetric, without bruits. No thyromegaly. No lymphadenopathy. CARDIOVASCULAR: Regular rate and rhythm. No murmurs, rubs, or gallops. Distal pulses are 2+ and symmetric. PULMONARY: No evidence of respiratory distress. Lungs clear to auscultation bilaterally. No wheezing, rales or rhonchi. ABDOMINAL: + white fluid and slight tenderness at sight of cholecystostomy drain. There is no redness on stomach. Soft. Non-distended. No rebound or guarding. No organomegaly. Normoactive bowel sounds. MUSCULOSKELETAL Normal range of motion at all joints. No bony deformities or tenderness. No CVA tenderness. EXTREMITIES: + right BKA No cyanosis. No clubbing. No edema. No calf tenderness. SKIN: Warm and dry. Normal capillary refill. No rashes. No jaundice. NEUROLOGICAL: Alert, awake, appropriate. Cranial nerves 2-12 intact. No deficits to light touch and temperature in face, upper extremities and lower extremities. No motor deficits in the in face, upper extremities and lower extremities. Normoreflexic in the upper and lower extremities. Normal speech. Toes are down- going bilaterally. PSYCHIATRIC: Cooperative. Good eye contact. Appropriate mood and affect. <Gaudencio Ryan - Last Filed: 10/22/18 02:01> - Vital Signs Last Vital Signs Temp Pulse Resp BP Pulse Ox 97.7 F 78 16 149/74 98 10/22/18 00:49 10/22/18 00:49 10/22/18 00:49 10/22/18 00:49 10/22/18 00:49 <Tori Wilson - Last Filed: 10/22/18 06:36> Moderate Sedation - Procedure Monitoring Vital Signs: Procedure Monitoring Vital Signs Temperature 97.7 F 10/22/18 00:49 Pulse Rate 78 10/22/18 00:49 Respiratory Rate 16 10/22/18 00:49 Blood Pressure 149/74 10/22/18 00:49 O2 Sat by Pulse Oximetry (%) 98 10/22/18 00:49 <Gaudencio Ryan - Last Filed: 10/22/18 02:01> - Procedure Monitoring Vital Signs: Procedure Monitoring Vital Signs Temperature 97.7 F 10/22/18 00:49 Pulse Rate 78 10/22/18 00:49 Respiratory Rate 16 10/22/18 00:49 Blood Pressure 149/74 10/22/18 00:49 O2 Sat by Pulse Oximetry (%) 98 10/22/18 00:49 <Tori Wilson - Last Filed: 10/22/18 06:36> ED Treatment Course - LABORATORY CBC & Chemistry Diagram: 10/22/18 02:10 10/22/18 02:10 <Tori Wilson - Last Filed: 10/22/18 06:36> Medical Decision Making - Medical Decision Making 10/22/18 04:08 CXR normal. 10/22/18 06:32 Pt has minimal RUQ pain at the site of the cholecystectomy tube entrance. Pt has a small hole where the tube was placed and pus/white material at the site. Pt has no fever and no rebound or guarding or pain anywhere else in the abd. rest of exam is normal <Tori Wilson - Last Filed: 10/22/18 06:36> *DC/Admit/Observation/Transfer - Attestations Scribe Attestion: 10/22/18 02:03 Documentation prepared by Gaudencio Ryan, acting as medical support specialist for Tori Wilson MD <Gaudencio Ryan - Last Filed: 10/22/18 02:01> - Discharge Dispostion Decision to Admit order: Yes <Tori Wilson - Last Filed: 10/22/18 06:36> Diagnosis at time of Disposition: Cholecystostomy tube dysfunction, S/P BKA (below knee amputation) - Discharge Dispostion Condition at time of disposition: Guarded
[2018-10-22 02:20] LABS: BASO % 0.2 % (0-2.0); HEMOGLOBIN 11.3 GM/dL (10.7-15.3); LYMPH % 34.8 % (8-40); MCH 28.2 pg (25.7-33.7); MCHC 33.2 g/dl (32.0-36.0); MEAN CELL VOLUME 84.9 fl (80-96); MEAN PLT VOLUME 7.8 fl (7.5-11.1); MONO % 7.9 % (3.8-10.2); NEUT % 55.1 % (42.8-82.8); PLATELET COUNT 231 K/MM3 (134-434); RBC 4.01 M/mm3 (3.60-5.2); RDW 17.5 % (11.6-15.6); WHITE BLOOD COUNT 6.2 K/mm3 (4.0-10.0)
[2018-10-22 02:38] LABS: INR 1.02 (0.83-1.09)
[2018-10-22 02:47] LABS: ALBUMIN 3.4 g/dl (3.4-5.0); ALK PHOS 61 U/L (45-117); ANION GAP 8 MMOL/L (8-16); BILIRUBIN,TOTAL 0.3 mg/dL (0.2-1); BLOOD UREA NITROGEN 27 mg/dL (7-18); CALCIUM 9.2 mg/dL (8.5-10.1); CHLORIDE 98 mmol/L (98-107); CO2 30 mmol/L (21-32); GLUCOSE,RANDOM 171 mg/dL (74-106); POTASSIUM 4.6 mmol/L (3.5-5.1); SGOT/AST 18 U/L (15-37); SGPT/ALT 24 U/L (13-61); SODIUM 136 mmol/L (136-145); TOT PROT 7.3 g/dl (6.4-8.2)
--- NOTE | 2018-10-22 04:55 | HP ---
CHIEF COMPLAINT: displaced JAMEL drain PCP: [facility] HISTORY OF PRESENT ILLNESS: 83 y/o female with PMH of PVD s/p R BKA (08/19), HTN, DM, HLD, cholecystitis s/ p IR drainage and tube placement (08/19), depression, presents to the ED after her JAMEL drain was accidentally knocked out of place. Patient states that she when she leaning over to grab a cup of water her arm knocked the tube out of place; she has had the drain for about 2 months with no complications. she endorses minimal tenderness to the area- denies any fevers or chills or any recent illnesses. She has [facility] living at a prison since her right BKA took place but usually lives at home with her daughter. ER course was notable for: (1) vital signs and labs wnl (2)CXRAY and EKG normal (3) Recent Travel: none PAST MEDICAL HISTORY: see above PAST SURGICAL HISTORY: right BKA; tubal ligation surgery Social History: Smoking:former smoker; quit 40 years ago Alcohol:denies Drugs: denies Family History: denies Allergies Penicillins Allergy (Verified 10/22/18 00:51) HOME MEDICATIONS: Home Medications Medication Instructions Recorded Amlodipine Besylate [Norvasc -] 10 mg PO DAILY tablet 08/31/18 Atorvastatin Ca [Lipitor] 40 mg PO HS tablet 08/31/18 Docusate Sodium [Colace -] 100 mg PO BID capsule 08/31/18 Ferrous Sulfate 325 mg PO DAILY #30 tablet 08/31/18 Hydrochlorothiazide [Hctz -] 50 mg PO DAILY tablet 08/31/18 Insulin (Levemir) [Levemir Vial] 5 units SQ HS units 08/31/18 Insulin Sliding Scale [Novolog 1 vial SQ Q6H units 08/31/18 Vial Sliding Scale -] Losartan Potassium [Cozaar -] 100 mg PO DAILY tablet 08/31/18 Polyethylene Glycol 3350 [Miralax 17 gm PO BID bottle 08/31/18 119 gm Btl -] Acetaminophen [Tylenol .Regular 325 mg PO Q4H PRN 30 Days tablet 09/11/18 Strength -] Heparin - 5,000 unit SQ Q8H 28 Days ml 09/11/18 Bacitracin - [Bacitracin Topical 1 applic TP DAILY 10/22/18 Ointment -] Duloxetine HCl [Cymbalta] 30 mg PO HS 10/22/18 Sennosides [Senna -] 2 tab PO BID 10/22/18 oxyCODONE HCL [Roxicodone -] 5 mg PO Q6H MDD 25 10/22/18 REVIEW OF SYSTEMS CONSTITUTIONAL: Absent: fever, chills, diaphoresis, generalized weakness, malaise, loss of appetite, weight change HEENT: Absent: rhinorrhea, nasal congestion, throat pain, throat swelling, difficulty swallowing, mouth swelling, ear pain, eye pain, visual changes CARDIOVASCULAR: Absent: chest pain, syncope, palpitations, irregular heart rate, lightheadedness , peripheral edema RESPIRATORY: Absent: cough, shortness of breath, dyspnea with exertion, orthopnea, wheezing, stridor, hemoptysis GASTROINTESTINAL: Present: slight RUQ tenderness Absent: abdominal pain, abdominal distension, nausea, vomiting, diarrhea, constipation, melena, hematochezia GENITOURINARY: Absent: dysuria, frequency, urgency, hesitancy, hematuria, flank pain, genital pain MUSCULOSKELETAL: Absent: myalgia, arthralgia, joint swelling, back pain, neck pain SKIN: Absent: rash, itching, pallor HEMATOLOGIC/IMMUNOLOGIC: Absent: easy bleeding, easy bruising, lymphadenopathy, frequent infections ENDOCRINE: Absent: unexplained weight gain, unexplained weight loss, heat intolerance, cold intolerance NEUROLOGIC: Absent: headache, focal weakness or paresthesias, dizziness, unsteady gait, seizure, mental status changes, bladder or bowel incontinence PSYCHIATRIC: Absent: anxiety, depression, suicidal or homicidal ideation, hallucinations. PHYSICAL EXAMINATION Vital Signs - 24 hr 10/22/18 00:49 Temperature 97.7 F Pulse Rate 78 Respiratory 16 Rate Blood Pressure 149/74 O2 Sat by Pulse 98 Oximetry (%) GENERAL: Awake, alert, and fully oriented, in no acute distress. EYES:EOMI; PEERLA; no scleral icterus NECK: no JVD, no lymphadenopathy LUNGS: CTA B/L; no rales, rhonchi or wheezing HEART: Regular rate and rhythm, normal S1 and S2 without murmur, rub or gallop. ABDOMEN: Soft, slight tenderness upon palpation at sight of JAMEL drain; area is non-erythematous, not warm to touch slight milky-white fluid draining. MUSCULOSKELETAL: Normal range of motion at all joints. No bony deformities or tenderness. No CVA tenderness. EXTREMITIES: warm; well-perfused; no clubbing/cyanosis or edema PSYCHIATRIC: Cooperative. Good eye contact. Appropriate mood and affect. SKIN: Warm, dry, normal turgor, no rashes or lesions noted, normal capillary refill. Laboratory Results - last 24 hr 10/22/18 10/22/18 10/22/18 02:10 02:10 02:10 WBC 6.2 RBC 4.01 Hgb 11.3 Hct 34.0 D MCV 84.9 MCH 28.2 MCHC 33.2 RDW 17.5 H Plt Count 231 D MPV 7.8 Absolute Neuts (auto) 3.4 Neutrophils % 55.1 Lymphocytes % 34.8 D Monocytes % 7.9 Eosinophils % 2.0 Basophils % 0.2 Nucleated RBC % 0 PT with INR 12.00 INR 1.02 Sodium 136 Potassium 4.6 Chloride 98 Carbon Dioxide 30 Anion Gap 8 BUN 27 H Creatinine 1.0 Creat Clearance w eGFR 53.21 Random Glucose 171 H Calcium 9.2 Total Bilirubin 0.3 AST 18 ALT 24 Alkaline Phosphatase 61 Total Protein 7.3 Albumin 3.4 Blood Type 10/22/18 02:10 WBC RBC Hgb Hct MCV MCH MCHC RDW Plt Count MPV Absolute Neuts (auto) Neutrophils % Lymphocytes % Monocytes % Eosinophils % Basophils % Nucleated RBC % PT with INR INR Sodium Potassium Chloride Carbon Dioxide Anion Gap BUN Creatinine Creat Clearance w eGFR Random Glucose Calcium Total Bilirubin AST ALT Alkaline Phosphatase Total Protein Albumin Blood Type A POSITIVE ASSESSMENT/PLAN: 83 y/o female with PMH of PVD (s/p right BKA) HTN, DM, HLD, cholecystitis (s/p IR JAMEL drain placement 08/19), depression presents to the ED after her JAMEL drain was accidentally knocked out of place. #Cholecystitis s/p IR drainage (08/19) -Dr Andrade consulted for evaluation of drain; re-evaluate need for cholecystectomy -RUQ ultrasound ordered -monitor drain site for areas of erythema/infection #HTN -c/w home meds: -amlodipine 10mg -HCTZ 50mg -Cozaar 100 -monitor BP #DM -ISS -levemir 5units at night -BGMS ACHS -diabetic diet #HLD -c/w lipitor 40 daily #Depression -c/w cymbalta 30mg DVT PPX: Heparin SQ F/E/N not on fluids monitor electrolytes diabetic diet full code Problem List - Problem (1) Cholecystostomy tube dysfunction Code(s): T85.518A - BREAKDOWN (MECHANICAL) OF GI PROSTH DEV/GRFT, INIT (2) Type 2 diabetes mellitus Code(s): E11.9 - TYPE 2 DIABETES MELLITUS WITHOUT COMPLICATIONS (3) S/P BKA (below knee amputation) Code(s): Z89.519 - ACQUIRED ABSENCE OF UNSPECIFIED LEG BELOW KNEE (4) HTN (hypertension) Code(s): I10 - ESSENTIAL (PRIMARY) HYPERTENSION Qualifiers: Hypertension type: unspecified Qualified Code(s): I10 - Essential (primary ) hypertension (5) Hyperlipidemia Code(s): E78.5 - HYPERLIPIDEMIA, UNSPECIFIED Visit type - Emergency Visit Emergency Visit: Yes ED Registration Date: 10/22/18 Care time: The patient presented to the Emergency Department on the above date and was hospitalized for further evaluation of their emergent condition. - New Patient This patient is new to me today: Yes Date on this admission: 10/22/18 - Critical Care Critical Care patient: No
--- NOTE | 2018-10-22 05:52 | PN ---
Teaching Attending Note Name of Resident: Sherri Shepard ATTENDING PHYSICIAN STATEMENT I saw and evaluated the patient. I reviewed the resident's note and discussed the case with the resident. I agree with the resident's findings and plan as documented. SUBJECTIVE: This is an 83 year old woman with a history of PAD, right BKA (), HTN, hyperlipidemia, type 2 DM, depression, cholecystostomy for acute cholecystitis (08/22/18) who was sent to the ED from [facility] on [address] after the cholecystostomy pigtail catheter became dislodged. She states that she was leaning to the right to pick something up and the tube became caught and got pulled out. OBJECTIVE: Vital Signs Period Temp Pulse Resp BP Sys/Reyes Pulse Ox Last 24 Hr 97.7 F 78 16 149/74 98 HEART: S1S2, RRR LUNGS: Clear ABDOMEN: Soft, non-tender, non-distended, normal BS, cholecystostomy site clean EXTREMITIES: No edema, RLE stump wrapped Laboratory Tests 10/22/18 10/22/18 10/22/18 02:10 02:10 02:10 WBC 6.2 RBC 4.01 Hgb 11.3 Hct 34.0 D MCV 84.9 MCH 28.2 MCHC 33.2 RDW 17.5 H Plt Count 231 D MPV 7.8 Absolute Neuts (auto) 3.4 Neutrophils % 55.1 Lymphocytes % 34.8 D Monocytes % 7.9 Eosinophils % 2.0 Basophils % 0.2 Nucleated RBC % 0 PT with INR 12.00 INR 1.02 Sodium 136 Potassium 4.6 Chloride 98 Carbon Dioxide 30 Anion Gap 8 BUN 27 H Creatinine 1.0 Creat Clearance w eGFR 53.21 Random Glucose 171 H Calcium 9.2 Total Bilirubin 0.3 AST 18 ALT 24 Alkaline Phosphatase 61 Total Protein 7.3 Albumin 3.4 Blood Type Antibody Screen 10/22/18 02:10 WBC RBC Hgb Hct MCV MCH MCHC RDW Plt Count MPV Absolute Neuts (auto) Neutrophils % Lymphocytes % Monocytes % Eosinophils % Basophils % Nucleated RBC % PT with INR INR Sodium Potassium Chloride Carbon Dioxide Anion Gap BUN Creatinine Creat Clearance w eGFR Random Glucose Calcium Total Bilirubin AST ALT Alkaline Phosphatase Total Protein Albumin Blood Type A POSITIVE Antibody Screen Negative Home Medications Medication Instructions Recorded Amlodipine Besylate [Norvasc -] 10 mg PO DAILY tablet 08/31/18 Atorvastatin Ca [Lipitor] 40 mg PO HS tablet 08/31/18 Docusate Sodium [Colace -] 100 mg PO BID capsule 08/31/18 Ferrous Sulfate 325 mg PO DAILY #30 tablet 08/31/18 Hydrochlorothiazide [Hctz -] 50 mg PO DAILY tablet 08/31/18 Insulin (Levemir) [Levemir Vial] 5 units SQ HS units 08/31/18 Insulin Sliding Scale [Novolog 1 vial SQ Q6H units 08/31/18 Vial Sliding Scale -] Losartan Potassium [Cozaar -] 100 mg PO DAILY tablet 08/31/18 Polyethylene Glycol 3350 [Miralax 17 gm PO BID bottle 08/31/18 119 gm Btl -] Acetaminophen [Tylenol .Regular 325 mg PO Q4H PRN 30 Days tablet 09/11/18 Strength -] Heparin - 5,000 unit SQ Q8H 28 Days ml 09/11/18 Bacitracin - [Bacitracin Topical 1 applic TP DAILY 10/22/18 Ointment -] Duloxetine HCl [Cymbalta] 30 mg PO HS 10/22/18 Sennosides [Senna -] 2 tab PO BID 10/22/18 oxyCODONE HCL [Roxicodone -] 5 mg PO Q6H MDD 25 10/22/18 ASSESSMENT AND PLAN: This is an 83 year old woman with a history of PAD, right BKA (09/04/18), HTN, hyperlipidemia, type 2 DM, depression, cholecystostomy for acute cholecystitis ( 08/22/18) who was sent to the ED from [facility] after the cholecystostomy pigtail catheter became dislodged. 1. Cholecystostomy catheter dislodgement - RUQ US - Surgery consult 2. HTN - Continue Norvasc, Cozaar, HCTZ 3. Hyperlipidemia - Continue Lipitor 4. Type 2 DM - Continue Levemir, Novolog sliding scale 5. Depression - Continue Cymbalta
[2018-10-22] MEDS ORDERED: HEPARIN NA (PORCINE) 5,000 UNITS/ML 1ML VIAL SQ SCH (06:00)
[2018-10-22] MEDS ORDERED: INSULIN (NOVOLOG) ASPART 100 UNITS/ML 10ML VIAL ONE ×2 (07:33→12:47)
[2018-10-22] MEDS: INSULIN SLIDING SCALE (NOVOLOG) 1 VIAL SQ SCH ×3 (07:36→17:00)
[2018-10-22 08:59] LABS: BASO % 0.4 % (0-2.0); EOS % 1.7 % (0-4.5); HEMATOCRIT 32.4 % (32.4-45.2); HEMOGLOBIN 10.7 GM/dL (10.7-15.3); LYMPH % 31.3 % (8-40); MCHC 33.1 g/dl (32.0-36.0); MEAN CELL VOLUME 84.6 fl (80-96); MONO % 8.7 % (3.8-10.2); NEUT % 57.9 % (42.8-82.8); PLATELET COUNT 231 K/MM3 (134-434); RBC 3.83 M/mm3 (3.60-5.2); RDW 17.1 % (11.6-15.6); WHITE BLOOD COUNT 7.3 K/mm3 (4.0-10.0)
[2018-10-22 09:28] LABS: ALBUMIN 3.4 g/dl (3.4-5.0); ALK PHOS 62 U/L (45-117); ANION GAP 11 MMOL/L (8-16); BILIRUBIN,TOTAL 0.5 mg/dL (0.2-1); BLOOD UREA NITROGEN 30 mg/dL (7-18); CALCIUM 8.9 mg/dL (8.5-10.1); CHLORIDE 99 mmol/L (98-107); CO2 26 mmol/L (21-32); CREATININE 1.2 mg/dL (0.55-1.3); GLUCOSE,RANDOM 203 mg/dL (74-106); MAGNESIUM 1.4 mg/dL (1.8-2.4); PHOSPHOROUS 4.2 mg/dL (2.5-4.9); POTASSIUM 3.9 mmol/L (3.5-5.1); SGOT/AST 23 U/L (15-37); SGPT/ALT 29 U/L (13-61); SODIUM 135 mmol/L (136-145); TOT PROT 7.1 g/dl (6.4-8.2)
[2018-10-22] MEDS ORDERED: MAGNESIUM OXIDE 400 MG TABLET (FP) PO ONE (10:00)
[2018-10-22] MEDS ORDERED: DOCUSATE SODIUM 100 MG CAPSULE (FP) PO SCH (10:00)
[2018-10-22] MEDS ORDERED: HYDROCHLOROTHIAZIDE 25 MG TABLET (FP) PO SCH (10:00)
[2018-10-22] MEDS ORDERED: LOSARTAN POTASSIUM 50 MG TABLET (FP) PO SCH (10:00)
[2018-10-22] MEDS ORDERED: amLODIPine BESYLATE 10 MG TABLET (FP) PO SCH (10:00)
[2018-10-22] MEDS ORDERED: FERROUS SO4 325 MG TABLET (FP) PO SCH (10:00)
[2018-10-22] MEDS ORDERED: MAGNESIUM SULF 50% (8.12 MEQ/2 ML-1 GM VIAL) IVPB ONE (10:51)
--- NOTE | 2018-10-22 11:09 | EKG ---
Test Reason : Blood Pressure : / mmHG Vent. Rate : 078 BPM Atrial Rate : 078 BPM P-R Int : 206 ms QRS Dur : 090 ms QT Int : 376 ms P-R-T Axes : 048 002 076 degrees QTc Int : 428 ms NORMAL SINUS RHYTHM CANNOT RULE OUT ANTERIOR INFARCT (CITED ON OR BEFORE 14-SEP-2018) ABNORMAL ECG WHEN COMPARED WITH ECG OF 14-SEP-2018 10:51, NO SIGNIFICANT CHANGE WAS FOUND Confirmed by EMANI FAM, REKHA ([id number]) on 10/22/2018 11:08:48 AM Referred By: Confirmed By:REKHA JOAQUIN MD
[2018-10-22] MEDS ORDERED: MAGNESIUM OXIDE 400 MG TABLET (FP) ONE (12:33)
--- NOTE | 2018-10-22 16:53 | PN ---
Progress Note (short form) - Note Progress Note: surgery 83f dislodged cholecystostomy tube that had been in for 2 months. u/s and labs reviewed and are unremarkable. After 2 months a tract has formed and tubes can be safely removed without leakage of bile. suggest low fat diet. can follow as outpt to consider elective cholecystectomy. If symptoms of acute cholecystitis return will need replacement of cholecystostomy tube.
[2018-10-22] MEDS ORDERED: COLLAGENASE CLOSTRIDIUM HIST. 30 GRAMS TUBE TP SCH (17:15)
--- NOTE | 2018-10-22 17:36 | DS ---
Physical Exam: SUBJECTIVE: Pt had C-tube fall out at D[place]. Pt denies any fevers/chills, n/v, purulence or bile drainage from site, abdominal pain. OBJECTIVE: Vital Signs Period Temp Pulse Resp BP Sys/Reeys Pulse Ox Last 24 Hr 97.7 F-99 F 74-87 16-18 112-149/59-76 98-100 PHYSICAL EXAM GENERAL: NAD awake, alert, and fully oriented HEENT: Nc/AT, EOMI, JONI, sclera anicteric, MMM NECK: No JVD LUNGS: CTA bilaterally, no wheezes, no crackles, no accessory muscle use. HEART: RRR, S1, S2 without murmur ABDOMEN: Soft, NT/ND, normoactive bowel sounds, no guarding, puncture site of RUQ noted without bleeding, bile, or other drainage EXTREMITIES: 2+ DP pulse L, BKA noted on R, scant purulence noted from RLE stump , no edema. PSYCH: Normal mood, normal affect. SKIN: Warm, dry, no rashes LABS Laboratory Results - last 24 hr 10/22/18 10/22/18 10/22/18 02:10 02:10 02:10 WBC 6.2 RBC 4.01 Hgb 11.3 Hct 34.0 D MCV 84.9 MCH 28.2 MCHC 33.2 RDW 17.5 H Plt Count 231 D MPV 7.8 Absolute Neuts (auto) 3.4 Neutrophils % 55.1 Lymphocytes % 34.8 D Monocytes % 7.9 Eosinophils % 2.0 Basophils % 0.2 Nucleated RBC % 0 PT with INR 12.00 INR 1.02 Sodium 136 Potassium 4.6 Chloride 98 Carbon Dioxide 30 Anion Gap 8 BUN 27 H Creatinine 1.0 Creat Clearance w eGFR 53.21 POC Glucometer Random Glucose 171 H Calcium 9.2 Phosphorus Magnesium Total Bilirubin 0.3 AST 18 ALT 24 Alkaline Phosphatase 61 Total Protein 7.3 Albumin 3.4 Blood Type Antibody Screen 10/22/18 10/22/18 10/22/18 02:10 06:35 08:42 WBC 7.3 RBC 3.83 Hgb 10.7 Hct 32.4 MCV 84.6 MCH 28.0 MCHC 33.1 RDW 17.1 H Plt Count 231 MPV 8.0 Absolute Neuts (auto) 4.2 Neutrophils % 57.9 Lymphocytes % 31.3 Monocytes % 8.7 Eosinophils % 1.7 Basophils % 0.4 Nucleated RBC % 0 PT with INR INR Sodium Potassium Chloride Carbon Dioxide Anion Gap BUN Creatinine Creat Clearance w eGFR POC Glucometer 201.54659 Random Glucose Calcium Phosphorus Magnesium Total Bilirubin AST ALT Alkaline Phosphatase Total Protein Albumin Blood Type A POSITIVE Antibody Screen Negative 10/22/18 10/22/18 08:42 16:56 WBC RBC Hgb Hct MCV MCH MCHC RDW Plt Count MPV Absolute Neuts (auto) Neutrophils % Lymphocytes % Monocytes % Eosinophils % Basophils % Nucleated RBC % PT with INR INR Sodium 135 L Potassium 3.9 Chloride 99 Carbon Dioxide 26 Anion Gap 11 BUN 30 H Creatinine 1.2 Creat Clearance w eGFR 43.12 POC Glucometer 198 Random Glucose 203 H Calcium 8.9 Phosphorus 4.2 Magnesium 1.4 L Total Bilirubin 0.5 AST 23 ALT 29 Alkaline Phosphatase 62 Total Protein 7.1 Albumin 3.4 Blood Type Antibody Screen HOSPITAL COURSE: Date of Admission:10/22/18 Date of Discharge: 10/22/18 Pt was admitted on 10/22/18 from [facility] rehab due to her cholecystostomy tube being complete displaced. Pt was brought to the ER for evaluation. RUQ ultrasound showed cholelithiasis with a R atrophic kidney without any evidence of cholecystitis or fluid collection noted. Pt had also noted some scant purulence from her RLE BKA site. Pt was evaluated by general surgery who recommended a low-fat diet and if symptoms reoccur to re-evaluate for cholecystectomy. Pt also recommended to apply santyl to stump daily and to follow-up with Dr. Cates in the wound clinic on Monday10/26/18. Pt is currently being discharged in stable condition. Pt aware and in agreement with plan. Pt awaiting transport back to [facility]. Minutes to complete discharge: 35 <Todd Joyner - Last Filed: 10/22/18 17:58> Physical Exam: ATTENDING NOTE Patient seen and examined by me. 83 year old female presents with dislodged cholecystostomy tube for recent acute cholecystitis, denies abdo pain/nausea/ vomiting/fever/chills. Recent R BKA by Dr. Cates. US abdomen as documented above. Seen by Surgery who recommended leaving tube out and monitoring on low- fat diet. R BKA wound evaluated by Vascular Surgery with recommendations made for wounds care as above. Patient is afebrile/hemodynamically stable with benign abdomen and optimized for return to nursing facility. Agree with rest of resident note. <Yaya Briones - Last Filed: 10/22/18 18:51> Discharge Summary Reason For Visit: ACQUIRED ABSENCE OF RIGHT LOWER EXTREMITY BELOW Current Active Problems Cholecystostomy tube dysfunction (Acute) S/P BKA (below knee amputation) (Chronic) - Home Medications Comprehensive Discharge Medication List: Ambulatory Orders Amlodipine Besylate [Norvasc -] 10 mg PO DAILY tablet 08/31/18 Atorvastatin Ca [Lipitor] 40 mg PO HS tablet 08/31/18 Docusate Sodium [Colace -] 100 mg PO BID capsule 08/31/18 Ferrous Sulfate 325 mg PO DAILY #30 tablet 08/31/18 Hydrochlorothiazide [Hctz -] 50 mg PO DAILY tablet 08/31/18 Insulin (Levemir) [Levemir Vial] 5 units SQ HS units 08/31/18 Insulin Sliding Scale [Novolog Vial Sliding Scale -] 1 vial SQ Q6H units Losartan Potassium [Cozaar -] 100 mg PO DAILY tablet 08/31/18 Polyethylene Glycol 3350 [Miralax 119 gm Btl -] 17 gm PO BID bottle 08/31/18 Acetaminophen [Tylenol .Regular Strength -] 325 mg PO Q4H PRN 30 Days tablet Bacitracin - [Bacitracin Topical Ointment -] 1 applic TP DAILY 10/22/18 Collagenase Clostridium Hist. [Santyl -] 1 applic TP DAILY tube 10/22/18 Duloxetine HCl [Cymbalta] 30 mg PO HS 10/22/18 Sennosides [Senna -] 2 tab PO BID 10/22/18 <Todd Joyner - Last Filed: 10/22/18 17:58> Current Active Problems Cholecystostomy tube dysfunction (Acute) S/P BKA (below knee amputation) (Chronic) - Home Medications Comprehensive Discharge Medication List: Ambulatory Orders Amlodipine Besylate [Norvasc -] 10 mg PO DAILY tablet 08/31/18 Atorvastatin Ca [Lipitor] 40 mg PO HS tablet 08/31/18 Docusate Sodium [Colace -] 100 mg PO BID capsule 08/31/18 Ferrous Sulfate 325 mg PO DAILY #30 tablet 08/31/18 Hydrochlorothiazide [Hctz -] 50 mg PO DAILY tablet 08/31/18 Insulin (Levemir) [Levemir Vial] 5 units SQ HS units 08/31/18 Insulin Sliding Scale [Novolog Vial Sliding Scale -] 1 vial SQ Q6H units Losartan Potassium [Cozaar -] 100 mg PO DAILY tablet 08/31/18 Polyethylene Glycol 3350 [Miralax 119 gm Btl -] 17 gm PO BID bottle 08/31/18 Acetaminophen [Tylenol .Regular Strength -] 325 mg PO Q4H PRN 30 Days tablet Bacitracin - [Bacitracin Topical Ointment -] 1 applic TP DAILY 10/22/18 Collagenase Clostridium Hist. [Santyl -] 1 applic TP DAILY tube 10/22/18 Duloxetine HCl [Cymbalta] 30 mg PO HS 10/22/18 Sennosides [Senna -] 2 tab PO BID 10/22/18 <JarrettYaya bello - Last Filed: 10/22/18 18:51> Condition: Stable - Instructions Diet, Activity, Other Instructions: You were seen here due to your gallbladder tube falling off. Your ultrasound performed showed that you still had gallstones, but no inflammation or infection nearby. You were seen by surgery who said you can choose to do an elective removal of your GB if symptoms reoccur. He suggests you stay on a low- fat diet to minimize reoccurrence. MEDICATIONS: Please continue your medications as you have been at your rehab. Please try to stay on a low-fat diet Please continue Santyl applied daily to the RLE stump Follow-ups: If you develop symptoms such as worsening right-sided pain after eating food you should be evaluated in the ER again since you may have gallbladder inflammation or infection. Please follow-up with Dr. Cates on Monday10/26/18 at the wound clinic for your R knee amputation Referrals: William Cates MD [Staff Physician] - Disposition: DETENTION FACILITY This patient is new to me today: Yes Date on this admission: 10/22/18 Emergency Visit: Yes ED Registration Date: 10/22/18 Care time: The patient presented to the Emergency Department on the above date and was hospitalized for further evaluation of their emergent condition. Critical Care patient: No - Discharge Referral Referred to [facility] Med P.C[facility] Yes Physician Referral: William Cates DO ([facility] [place]) <Todd Joyner - Last Filed: 10/22/18 17:58>
[2018-10-22 18:13] VITALS: BMI 21.2
[2018-10-22 19:18] VITALS: BP 136/63; PULSE 63; TEMP 98
[2018-10-22] MEDS ORDERED: INSULIN (LEVEMIR) 100 UNITS/ML UNITS SQ SCH (22:00)
[2018-10-22] MEDS ORDERED: DULoxetine HCL 30 MG CAPSULE.DR (FP) PO SCH (22:00)
[2018-10-22] MEDS ORDERED: ATORVASTATIN CA 40 MG TABLET (FP) PO SCH (22:00)
== END 2018-10-22 20:03 | DRG 921 ==
LOC: JER 00:26 → JERBED 04:21 → J8W 16:16
PROVIDERS: ADMIT Internal Medicine
DX: T85.528A Displacement of other gastrointestinal prosthetic devices, implants and grafts, initial encounter (principal); Y83.8 Other surgical procedures as the cause of abnormal reaction of the patient, or of later complication, without mention of misadventure at the time of the procedure; I10 Essential (primary) hypertension; E11.51 Type 2 diabetes mellitus with diabetic peripheral angiopathy without gangrene; E78.5 Hyperlipidemia, unspecified; K80.20 Calculus of gallbladder without cholecystitis without obstruction; F32.9 Major depressive disorder, single episode, unspecified; Z87.891 Personal history of nicotine dependence; Z89.511 Acquired absence of right leg below knee
CPT/HCPCS: 36415; 71045-TC-FY; 76705-TC; 80053; 82962; 83735; 84100; 85025; 85610; 86850; 86900; 86901; 93005; 93010; 99283-25; G0463-25; J1644

== ENCOUNTER 2018-11-07 10:49 | Inpatient (IN) | payer OTHER ==
--- NOTE | 2018-11-07 12:18 | PDOC ---
History of Present Illness - General Chief Complaint: Pain Stated Complaint: ABD PAIN Time Seen by Provider: 11/07/18 12:11 History Source: Patient Exam Limitations: No Limitations - History of Present Illness Initial Comments: 11/07/18 14:44 83-year-old female with history of peripheral vascular disease, right BKA, hypertension, diabetes, hyperlipidemia, status post Cholecystostomy presents to the ER with atraumatic right upper quadrant pain, nausea and several episodes of nonbloody, nonbilious vomiting. Patient's cholecystostomy tube accidentally fell out 2 weeks prior to arrival, she was evaluated by surgery and not time decision was made not to replace it. Patient denies fevers/chills/diarrhea/ melena/bright red blood per rectum. REVIEW OF SYSTEMS CONSTITUTIONAL: No fever, no chills, no fatigue EYES: No visual changes ENT: No ear pain, no sore throat CARDIOVASCULAR: No chest pain, no palpitations RESPIRATORY: No cough, no SOB GI: + ruq abdominal pain, + nausea, + vomiting, no constipation, no diarrhea GENITOURINARY: No dysuria, no frequency, no hematuria MUSKULOSKELETAL: No backpain, no joint pain, no myalgias SKIN: No rash NEURO: No headache EXAMINATION CONSTITUTIONAL: awake, Alert, well-nourished, in no distress HEAD: Normocephalic; atraumatic EYES: PERRL; EOM intact; No scleral icterus ENMT: External appears normal; mm-dry NECK: Supple; non-tender; no cervical lymphadenopathy CARD: Normal S1, S2; no murmurs, rubs, or gallops RESP: Normal chest excursion with respiration; breath sounds clear and equal bilaterally; no wheezes, rhonchi, or rales ABD: Soft, non-distended; + right upper quadrant tenderness;( Toure's is positive); + dressing noted to the right upper quadrant; no palpable organomegaly, no palpable hernias EXT: + Right BKA SKIN: Warm, dry, no rash NEURO: No focal neurological deficiencies. Past History - Past Medical History Allergies/Adverse Reactions: Allergies Allergy/AdvReac Type Severity Reaction Status Date / Time Penicillins Allergy Verified 11/07/18 11:26 Home Medications: Ambulatory Orders Amlodipine Besylate [Norvasc -] 10 mg PO DAILY tablet 08/31/18 Atorvastatin Ca [Lipitor] 40 mg PO HS tablet 08/31/18 Docusate Sodium [Colace -] 100 mg PO BID capsule 08/31/18 Ferrous Sulfate 325 mg PO DAILY #30 tablet 08/31/18 Hydrochlorothiazide [Hctz -] 50 mg PO DAILY tablet 08/31/18 Insulin (Levemir) [Levemir Vial] 5 units SQ HS units 08/31/18 Insulin Sliding Scale [Novolog Vial Sliding Scale -] 1 vial SQ Q6H units Losartan Potassium [Cozaar -] 100 mg PO DAILY tablet 08/31/18 Polyethylene Glycol 3350 [Miralax 119 gm Btl -] 17 gm PO BID bottle 08/31/18 Acetaminophen [Tylenol .Regular Strength -] 325 mg PO Q4H PRN 30 Days tablet Bacitracin - [Bacitracin Topical Ointment -] 1 applic TP DAILY 10/22/18 Collagenase Clostridium Hist. [Santyl -] 1 applic TP DAILY tube 10/22/18 Duloxetine HCl [Cymbalta] 30 mg PO HS 10/22/18 Sennosides [Senna -] 2 tab PO BID 10/22/18 Doxycycline Hyclate [Vibramycin -] 100 mg PO BID@1000,1800 #14 capsule 11/11/18 Heparin - 5,000 unit SQ BID vial 11/11/18 Ibuprofen [Motrin -] 600 mg PO Q6H PRN tablet 11/11/18 Anemia: No Asthma: No Cancer: No Cardiac Disorders: No CVA: No COPD: No CHF: No Dementia: No Diabetes: Yes GI Disorders: No Disorders: No HTN: Yes Hypercholesterolemia: Yes Liver Disease: No Seizures: No Thyroid Disease: No - Surgical History Abdominal Surgery: No Appendectomy: No Cardiac Surgery: No Cholecystectomy: No Lung Surgery: No Neurologic Surgery: No Orthopedic Surgery: Yes (RIGHT BELOW KNEE AMPUTATION) - Suicide/Smoking/Psychosocial Hx Smoking History: Former smoker Have you smoked in the past 12 months: No Information on smoking cessation initiated: No Hx Alcohol Use: No Drug/Substance Use Hx: No Substance Use Type: None Hx Substance Use Treatment: No *Physical Exam - Vital Signs Last Vital Signs Temp Pulse Resp BP Pulse Ox 97.9 F 79 20 111/66 94 L 11/07/18 11:24 11/07/18 11:24 11/07/18 11:24 11/07/18 11:24 11/07/18 11:24 Moderate Sedation - Procedure Monitoring Vital Signs: Procedure Monitoring Vital Signs Temperature 97.9 F 11/07/18 11:24 Pulse Rate 79 11/07/18 11:24 Respiratory Rate 20 11/07/18 11:24 Blood Pressure 111/66 11/07/18 11:24 O2 Sat by Pulse Oximetry (%) 94 L 11/07/18 11:24 ED Treatment Course - LABORATORY CBC & Chemistry Diagram: 11/10/18 06:30 11/10/18 06:30 Medical Decision Making - Medical Decision Making 11/07/18 14:48 Patient is an 83-year-old female with multiple comorbidities, status post cholecystostomy displacement who presents with right upper quadrant pain, nausea and vomiting. I suspect recurrent cholecystitis. We'll obtain CBC/CMP/ blood culture/UA. Will obtain right upper quadrant ultrasound as well as CAT scan with by mouth contrast to evaluate for possible collection. No IV contrast to be administered due to patient's chronic renal insufficiency. We'll administer IV fluids and IV Tylenol for pain. Will reassess. *DC/Admit/Observation/Transfer Diagnosis at time of Disposition: ELVIE (acute kidney injury), Cholelithiasis - Discharge Dispostion Disposition: [facility] FACILITY Condition at time of disposition: Guarded - Prescriptions - Referrals - Patient Instructions - Post Discharge Activity
[2018-11-07] MEDS ORDERED: ACETAMINOPHEN 1000 MG/100 ML VIAL (NON FORMULARY) IVPB ONE (12:26)
[2018-11-07] MEDS ORDERED: ACETAMINOPHEN INJECTION 100 ML IVPB ONE (13:11)
[2018-11-07 13:16] LABS: BASO % 0.4 % (0-2.0); EOS % 0.4 % (0-4.5); HEMATOCRIT 34.1 % (32.4-45.2); HEMOGLOBIN 11.7 GM/dL (10.7-15.3); LYMPH % 19.9 % (8-40); MCH 29.3 pg (25.7-33.7); MCHC 34.2 g/dl (32.0-36.0); MEAN CELL VOLUME 85.6 fl (80-96); MEAN PLT VOLUME 8.5 fl (7.5-11.1); MONO % 6.8 % (3.8-10.2); NEUT % 72.5 % (42.8-82.8); PLATELET COUNT 240 K/MM3 (134-434); RBC 3.98 M/mm3 (3.60-5.2); RDW 17.4 % (11.6-15.6); WHITE BLOOD COUNT 7.9 K/mm3 (4.0-10.0)
[2018-11-07 13:41] LABS: ALBUMIN 3.1 g/dl (3.4-5.0); ALK PHOS 74 U/L (45-117); ANION GAP 13 MMOL/L (8-16); BILIRUBIN,TOTAL 0.6 mg/dL (0.2-1); BLOOD UREA NITROGEN 52 mg/dL (7-18); CHLORIDE 97 mmol/L (98-107); CO2 24 mmol/L (21-32); CREATININE 2.3 mg/dL (0.55-1.3); GLUCOSE,RANDOM 134 mg/dL (74-106); POTASSIUM 3.5 mmol/L (3.5-5.1); SGOT/AST 17 U/L (15-37); SGPT/ALT 24 U/L (13-61); SODIUM 134 mmol/L (136-145); TOT PROT 7.6 g/dl (6.4-8.2)
[2018-11-07] MEDS ORDERED: SODIUM CHLORIDE 500 ML IV STA (14:28)
[2018-11-07 14:53] LABS: INR 1.09 (0.83-1.09); PROTHROMBIN TIME (PATIENT) 12.9 SEC (9.7-13.0)
--- NOTE | 2018-11-07 16:56 | PDOC ---
*Physical Exam - Vital Signs Last Vital Signs Temp Pulse Resp BP Pulse Ox 96.4 F L 75 18 109/59 L 96 11/07/18 16:11 11/07/18 16:11 11/07/18 16:11 11/07/18 16:11 11/07/18 16:11 - Physical Exam Comments: 11/07/18 16:52 Gen: awake heart: +s1s2 reg lungs: cta b/l abd: soft, ruq ttp, nondistended ext: no c/c/e Heart Score/ECG Review - ECG Intrepretation Comment:: 11/07/18 16:56 sinus at 82, 1st degree av block, nl axis, q waves anterior that are age indeterminate, no acute st/t wave findings ED Treatment Course - LABORATORY CBC & Chemistry Diagram: 11/07/18 12:53 11/07/18 12:53 - ADDITIONAL ORDERS Additional order review: Laboratory Results 11/07/18 11/07/18 12:53 12:53 PT with INR 12.90 INR 1.09 Sodium 134 L Potassium 3.5 Chloride 97 L Carbon Dioxide 24 Anion Gap 13 BUN 52 H Creatinine 2.3 H Creat Clearance w eGFR 20.35 Random Glucose 134 H Calcium 9.0 Total Bilirubin 0.6 AST 17 ALT 24 Alkaline Phosphatase 74 Total Protein 7.6 Albumin 3.1 L 11/07/18 12:53 RBC 3.98 MCV 85.6 MCHC 34.2 RDW 17.4 H MPV 8.5 Neutrophils % 72.5 D Lymphocytes % 19.9 D Monocytes % 6.8 Eosinophils % 0.4 Basophils % 0.4 - Medications Given in the ED: ED Medications Discontinued Medications Generic Name Dose Route Start Last Admin Trade Name Manjula PRN Reason Stop Dose Admin Acetaminophen 1,000 mg 11/07/18 12:26 11/07/18 13:14 Ofirmev Injection - IVPB 11/07/18 12:27 1,000 mg ONCE ONE Administration Sodium Chloride 500 mls @ 500 mls/hr 11/07/18 14:28 11/07/18 15:13 Normal Saline - IV 11/07/18 15:27 500 mls/hr ASDIR STA Administration Levofloxacin 500 mg in 100 mls @ 100 mls/hr 11/07/18 15:20 11/07/18 15:48 Levaquin 500 Mg Premixed Ivpb - IVPB 11/07/18 16:19 100 mls/hr ONCE ONE Administration Protocol Medical Decision Making - Medical Decision Making 11/07/18 16:53 a/p: 83yo female with cholecystitis with t tube placement with abd pain today -pt signed out from the prior attending pending labs, ultrasound findings -ultrasound shows stones, sludge, no pericholecystic fluid -labs show elvie -ivf ordered by the prior attending -given levaquin by the prior attending -will admit to Dr. Vance - case discussed with Dr. Vance who accepts pt to service *DC/Admit/Observation/Transfer Diagnosis at time of Disposition: ELVIE (acute kidney injury), Cholelithiasis - Discharge Dispostion Condition at time of disposition: Guarded Decision to Admit order: Yes - Referrals Referrals: Dominique Sierra MD [Primary Care Provider] - - Patient Instructions - Post Discharge Activity
[2018-11-07 19:03] LABS: URINE APPEARANCE CLOUDY; URINE BILIRUBIN NEGATIVE (<2.0 mg/dL); URINE COLOR DKYELLOW; URINE GLUCOSE (UA) NEGATIVE (NEGATIVE); URINE KETONE NEGATIVE (NEGATIVE); URINE LEUK ESTERASE 2+ (NEGATIVE); URINE NITRITE NEGATIVE (NEGATIVE); URINE PROTEIN 1+ (NEGATIVE)
[2018-11-07 19:16] LABS: EPI CELLS RARE /HPF (FEW); URINE BACTERIA MODERATE /hpf (NONE SEEN); URINE MUCUS RARE
[2018-11-07] MEDS ORDERED: MORPHINE SULFATE 2 MG/ML VIAL IVPUSH PRN (21:04)
[2018-11-07] MEDS ORDERED: ACETAMINOPHEN 1000 MG/100 ML VIAL (NON FORMULARY) IVPB PRN (21:11)
--- NOTE | 2018-11-07 21:11 | HP ---
Admitting History and Physical - Primary Care Physician PCP: Ryan Vance - Admission History of Present Illness: 83-year-old female with history of peripheral vascular disease, right BKA, hypertension, diabetes, hyperlipidemia, status post Cholecystostomy presents to the ER with atraumatic right upper quadrant pain, nausea and several episodes of nonbloody, nonbilious vomiting. Patient's cholecystostomy tube accidentally fell out 2 weeks prior to arrival, she was evaluated by surgery and not time decision was made not to replace it. Patient denies fevers/chills/diarrhea/ melena/bright red blood per rectum. - Past Medical History Cardiovascular: Yes: HTN Gastrointestinal: Yes: GERD Endocrine: Yes: Diabetes Mellitus - Past Surgical History Past Surgical History: Yes: - Smoking History Smoking history: Former smoker Have you smoked in the past 12 months: No - Alcohol/Substance Use Hx Alcohol Use: No Home Medications - Allergies Allergies/Adverse Reactions: Allergies Allergy/AdvReac Type Severity Reaction Status Date / Time Penicillins Allergy Verified 11/07/18 11:26 - Home Medications Home Medications: Ambulatory Orders Amlodipine Besylate [Norvasc -] 10 mg PO DAILY tablet 08/31/18 Atorvastatin Ca [Lipitor] 40 mg PO HS tablet 08/31/18 Docusate Sodium [Colace -] 100 mg PO BID capsule 08/31/18 Ferrous Sulfate 325 mg PO DAILY #30 tablet 08/31/18 Hydrochlorothiazide [Hctz -] 50 mg PO DAILY tablet 08/31/18 Insulin (Levemir) [Levemir Vial] 5 units SQ HS units 08/31/18 Insulin Sliding Scale [Novolog Vial Sliding Scale -] 1 vial SQ Q6H units Losartan Potassium [Cozaar -] 100 mg PO DAILY tablet 08/31/18 Polyethylene Glycol 3350 [Miralax 119 gm Btl -] 17 gm PO BID bottle 08/31/18 Acetaminophen [Tylenol .Regular Strength -] 325 mg PO Q4H PRN 30 Days tablet Bacitracin - [Bacitracin Topical Ointment -] 1 applic TP DAILY 10/22/18 Collagenase Clostridium Hist. [Santyl -] 1 applic TP DAILY tube 10/22/18 Duloxetine HCl [Cymbalta] 30 mg PO HS 10/22/18 Sennosides [Senna -] 2 tab PO BID 10/22/18 Physical Examination Vital Signs: Vital Signs Temperature 98.8 F 11/07/18 19:07 Pulse Rate 78 11/07/18 19:07 Respiratory Rate 17 11/07/18 19:07 Blood Pressure 123/66 11/07/18 19:07 O2 Sat by Pulse Oximetry (%) 98 11/07/18 19:07 Constitutional: Yes: No Distress HENT: Yes: Atraumatic Neck: Yes: Supple Cardiovascular: Yes: Regular Rate and Rhythm Respiratory: Yes: CTA Bilaterally Gastrointestinal: Yes: Normal Bowel Sounds Extremities: Yes: WNL Edema: No Peripheral Pulses WNL: Yes Neurological: Yes: Alert, Oriented Labs: CBC, BMP 11/07/18 12:53 11/07/18 12:53 Imaging - Results Cat Scan: Report Reviewed Ultrasound: Report Reviewed Problem List - Problems (1) ELVIE (acute kidney injury) Assessment/Plan: iv hydration fu labs Code(s): N17.9 - ACUTE KIDNEY FAILURE, UNSPECIFIED (2) Cholelithiasis Code(s): K80.20 - CALCULUS OF GALLBLADDER W/O CHOLECYSTITIS W/O OBSTRUCTION (3) Cholecystostomy tube dysfunction Assessment/Plan: will get surgery consult Code(s): T85.518A - BREAKDOWN (MECHANICAL) OF GI PROSTH DEV/GRFT, INIT (4) HTN (hypertension) Assessment/Plan: on meds stable Code(s): I10 - ESSENTIAL (PRIMARY) HYPERTENSION (5) Hyperlipidemia Code(s): E78.5 - HYPERLIPIDEMIA, UNSPECIFIED (6) Type 2 diabetes mellitus Assessment/Plan: on insulin and bgm...npo so hold insulin Code(s): E11.9 - TYPE 2 DIABETES MELLITUS WITHOUT COMPLICATIONS Assessment/Plan Laboratory Tests 11/07/18 11/07/18 11/07/18 12:53 12:53 12:53 WBC 7.9 RBC 3.98 Hgb 11.7 Hct 34.1 MCV 85.6 MCH 29.3 MCHC 34.2 RDW 17.4 H Plt Count 240 MPV 8.5 Absolute Neuts (auto) 5.8 Neutrophils % 72.5 D Lymphocytes % 19.9 D Monocytes % 6.8 Eosinophils % 0.4 Basophils % 0.4 Nucleated RBC % 0 PT with INR 12.90 INR 1.09 Sodium 134 L Potassium 3.5 Chloride 97 L Carbon Dioxide 24 Anion Gap 13 BUN 52 H Creatinine 2.3 H Creat Clearance w eGFR 20.35 Random Glucose 134 H Calcium 9.0 Total Bilirubin 0.6 AST 17 ALT 24 Alkaline Phosphatase 74 Total Protein 7.6 Albumin 3.1 L Urine Color Urine Appearance Urine pH Ur Specific [place] Urine Protein Urine Glucose (UA) Urine Ketones Urine Blood Urine Nitrite Urine Bilirubin Urine Urobilinogen Ur Leukocyte Esterase Urine WBC (Auto) Urine RBC (Auto) Ur Epithelial Cells Urine Bacteria Urine Mucus 11/07/18 18:50 WBC RBC Hgb Hct MCV MCH MCHC RDW Plt Count MPV Absolute Neuts (auto) Neutrophils % Lymphocytes % Monocytes % Eosinophils % Basophils % Nucleated RBC % PT with INR INR Sodium Potassium Chloride Carbon Dioxide Anion Gap BUN Creatinine Creat Clearance w eGFR Random Glucose Calcium Total Bilirubin AST ALT Alkaline Phosphatase Total Protein Albumin Urine Color Dkyellow Urine Appearance Cloudy Urine pH 5.0 Ur Specific [place] 1.016 Urine Protein 1+ H Urine Glucose (UA) Negative Urine Ketones Negative Urine Blood Negative Urine Nitrite Negative Urine Bilirubin Negative Urine Urobilinogen 2.0 H Ur Leukocyte Esterase 2+ H Urine WBC (Auto) 40 Urine RBC (Auto) 1 Ur Epithelial Cells Rare Urine Bacteria Moderate Urine Mucus Rare Active Medications Generic Name Dose Route Start Last Admin Trade Name Freq PRN Reason Stop Dose Admin Amlodipine Besylate 10 mg 11/08/18 10:00 Norvasc - PO DAILY [facility] Atorvastatin Calcium 40 mg 11/07/18 22:00 Lipitor - PO HS [facility] Collagenase 1 applic 11/08/18 10:00 Santyl - TP DAILY [facility] Protocol Duloxetine HCl 30 mg 11/07/18 22:00 Cymbalta - PO HS [facility] Heparin Sodium (Porcine) 5,000 unit 11/07/18 22:00 Heparin - SQ BID [facility] Sodium Chloride 1,000 mls @ 75 mls/hr 11/07/18 21:15 Normal Saline - IV ASDIR [facility] Insulin Detemir 5 units 11/07/18 22:00 Levemir Vial SQ HS [facility] Morphine Sulfate 2 mg 11/07/18 21:04 Morphine Sulfate IVPUSH Q4H PRN PAIN LEVEL 4 - 6
[2018-11-07] MEDS: HEPARIN NA (PORCINE) 5,000 UNITS/ML 1ML VIAL SQ SCH (22:01)
[2018-11-07] MEDS: ATORVASTATIN CA 40 MG TABLET (FP) PO SCH (22:10)
[2018-11-07] MEDS: DULoxetine HCL 30 MG CAPSULE.DR (FP) PO SCH (22:10)
[2018-11-07] MEDS: SODIUM CHLORIDE 1,000 ML IV SCH (22:10)
[2018-11-07] MEDS: INSULIN (LEVEMIR) 100 UNITS/ML UNITS SQ SCH (22:11)
[2018-11-07] MEDS: COLLAGENASE CLOSTRIDIUM HIST. 30 GRAMS TUBE TP SCH (22:40)
[2018-11-08 09:07] LABS: BASO % 0.3 % (0-2.0); EOS % 1.4 % (0-4.5); HEMATOCRIT 30.2 % (32.4-45.2); HEMOGLOBIN 10.1 GM/dL (10.7-15.3); LYMPH % 12.7 % (8-40); MCH 28.7 pg (25.7-33.7); MCHC 33.6 g/dl (32.0-36.0); MEAN CELL VOLUME 85.6 fl (80-96); MEAN PLT VOLUME 8.4 fl (7.5-11.1); MONO % 11.5 % (3.8-10.2); NEUT % 74.1 % (42.8-82.8); PLATELET COUNT 240 K/MM3 (134-434); RBC 3.52 M/mm3 (3.60-5.2); RDW 16.9 % (11.6-15.6); WHITE BLOOD COUNT 5.6 K/mm3 (4.0-10.0)
[2018-11-08 10:01] LABS: ALBUMIN 2.6 g/dl (3.4-5.0); ALK PHOS 58 U/L (45-117); ANION GAP 11 MMOL/L (8-16); BILIRUBIN,TOTAL 0.6 mg/dL (0.2-1); BLOOD UREA NITROGEN 46 mg/dL (7-18); CALCIUM 8.5 mg/dL (8.5-10.1); CHLORIDE 101 mmol/L (98-107); CO2 24 mmol/L (21-32); CREATININE 1.5 mg/dL (0.55-1.3); GLUCOSE,RANDOM 115 mg/dL (74-106); POTASSIUM 3.3 mmol/L (3.5-5.1); SGOT/AST 24 U/L (15-37); SGPT/ALT 26 U/L (13-61); SODIUM 135 mmol/L (136-145); TOT PROT 6.5 g/dl (6.4-8.2)
--- NOTE | 2018-11-08 11:39 | PN ---
Progress Note (short form) - Note Progress Note: surgery pt seen and examined. 83f with multiple medical problems, poor candidate for surgery, previous cholecystostomy tube for cholecystitis, declined surgery in the past, recently dislodged tube, presents with body aches. Ct shows acute cholecystitis. wbc wnl. no fever. on exam abd is soft, with localized ruq tenderness. Plan- acute choleycystitis without sepsis. Pt only given one dose of levaquin yesterday. Can consider medical management but with patient complaining of pain and localized tenderness with impressive ct findings would proceed with percutaneous drainage. Pt is a poor candidate for surgery, not a candidate for surgery in the acute setting, and likely should permanently keep the drain instead of interval cholecystectomy. Pt can follow as outpt if she wishes to discuss surgical options. No surgical contra-indication to discharge after procedure. abx per medical team. [phone]
[2018-11-08] MEDS: amLODIPine BESYLATE 10 MG TABLET (FP) PO SCH (12:05)
[2018-11-08] MEDS: KCL 10 MEQ IVPB 10 MEQ/100 ML INFUS.BAG IVPB SCH ×2 (12:23→17:13)
[2018-11-08] MEDS: SODIUM CHLORIDE 1,000 ML IV SCH ×2 (12:24→23:45)
[2018-11-08] MEDS: HEPARIN NA (PORCINE) 5,000 UNITS/ML 1ML VIAL SQ SCH ×2 (12:39→22:14)
[2018-11-08] MEDS: COLLAGENASE CLOSTRIDIUM HIST. 30 GRAMS TUBE TP SCH (14:00)
[2018-11-08 15:13] VITALS: BMI 21.9
--- NOTE | 2018-11-08 16:46 | EKG ---
Test Reason : Blood Pressure : / mmHG Vent. Rate : 082 BPM Atrial Rate : 082 BPM P-R Int : 214 ms QRS Dur : 088 ms QT Int : 394 ms P-R-T Axes : 027 005 031 degrees QTc Int : 460 ms SINUS RHYTHM WITH 1ST DEGREE A-V BLOCK ANTERIOR INFARCT (CITED ON OR BEFORE 14-SEP-2018) ABNORMAL ECG WHEN COMPARED WITH ECG OF 22-OCT-2018 02:33, NO SIGNIFICANT CHANGE WAS FOUND Confirmed by CHERRI ARDON MD ([id number]) on 11/08/2018 4:45:29 PM Referred By: Confirmed By:CHERRI ARDON MD
--- NOTE | 2018-11-08 16:57 | CON.ID ---
Consult Consult Specialty:: infectious diseases Referred by:: Reason for Consultation:: abd pain - History of Present Illness Chief Complaint: abd pain History of Present Illness: 83-year-old female with history of peripheral vascular disease, right BKA, hypertension, diabetes, hyperlipidemia, status post Cholecystostomy presents to the hospital because of abd pain in the rt upper quadrant pain and nausea and vomiting It seems patient had choleycystomy tube which fell out 2 weeks and surgery did not replace it surgery saw her now and on imaging studies patient was found to ahve acute choleystitis again patient still c/o of abd pain - History Source History Provided By: Patient, Medical Record Limitations to Obtaining History: Poor Historian - Past Medical History Cardio/Vascular: Yes: HTN Gastrointestinal: Yes: GERD Endocrine: Yes: Diabetes Mellitus - Past Surgical History Past Surgical History: Yes: - Alcohol/Substance Use Hx Alcohol Use: No - Smoking History Smoking history: Former smoker Have you smoked in the past 12 months: No - Social History Usual [facility] Ar[facility]ement: [facility] Home Medications - Allergies Allergies/Adverse Reactions: Allergies Allergy/AdvReac Type Severity Reaction Status Date / Time Penicillins Allergy Verified 11/07/18 11:26 - Home Medications Home Medications: Ambulatory Orders Amlodipine Besylate [Norvasc -] 10 mg PO DAILY tablet 08/31/18 Atorvastatin Ca [Lipitor] 40 mg PO HS tablet 08/31/18 Docusate Sodium [Colace -] 100 mg PO BID capsule 08/31/18 Ferrous Sulfate 325 mg PO DAILY #30 tablet 08/31/18 Hydrochlorothiazide [Hctz -] 50 mg PO DAILY tablet 08/31/18 Insulin (Levemir) [Levemir Vial] 5 units SQ HS units 08/31/18 Insulin Sliding Scale [Novolog Vial Sliding Scale -] 1 vial SQ Q6H units Losartan Potassium [Cozaar -] 100 mg PO DAILY tablet 08/31/18 Polyethylene Glycol 3350 [Miralax 119 gm Btl -] 17 gm PO BID bottle 08/31/18 Acetaminophen [Tylenol .Regular Strength -] 325 mg PO Q4H PRN 30 Days tablet Bacitracin - [Bacitracin Topical Ointment -] 1 applic TP DAILY 10/22/18 Collagenase Clostridium Hist. [Santyl -] 1 applic TP DAILY tube 10/22/18 Duloxetine HCl [Cymbalta] 30 mg PO HS 10/22/18 Sennosides [Senna -] 2 tab PO BID 10/22/18 Review of Systems - Review of Systems Constitutional: reports: No Symptoms Eyes: reports: No Symptoms HENT: reports: No Symptoms Neck: reports: No Symptoms Cardiovascular: reports: No Symptoms Respiratory: reports: No Symptoms Gastrointestinal: reports: Abdominal Pain, Nausea Musculoskeletal: reports: No Symptoms Integumentary: reports: No Symptoms Neurological: reports: No Symptoms Endocrine: reports: No Symptoms Hematology/Lymphatic: reports: No Symptoms Psychiatric: reports: No Symptoms Physical Exam Vital Signs: Vital Signs Temperature 98.5 F 11/08/18 14:45 Pulse Rate 68 11/08/18 15:02 Respiratory Rate 15 11/08/18 15:02 Blood Pressure 128/66 11/08/18 15:02 O2 Sat by Pulse Oximetry (%) 100 11/08/18 15:02 Constitutional: Yes: Well Nourished, Calm, Mild Distress Cardiovascular: Yes: Regular Rate and Rhythm Respiratory: Yes: Regular, CTA Bilaterally Gastrointestinal: Yes: Tenderness, Other (absent bowel sounds) Musculoskeletal: Yes: WNL Extremities: Yes: WNL Neurological: Yes: Alert, Oriented Psychiatric: Yes: Alert, Oriented Labs: CBC, BMP 11/08/18 07:45 11/08/18 07:45 Assessment/Plan Problem List - Problems (1) ELVIE (acute kidney injury) Code(s): N17.9 - ACUTE KIDNEY FAILURE, UNSPECIFIED (2) Cholelithiasis Code(s): K80.20 - CALCULUS OF GALLBLADDER W/O CHOLECYSTITIS W/O OBSTRUCTION (3) Cholecystostomy tube dysfunction Code(s): T85.518A - BREAKDOWN (MECHANICAL) OF GI PROSTH DEV/GRFT, INIT (4) HTN (hypertension) Code(s): I10 - ESSENTIAL (PRIMARY) HYPERTENSION (5) Hyperlipidemia Code(s): E78.5 - HYPERLIPIDEMIA, UNSPECIFIED (6) Type 2 diabetes mellitus Code(s): E11.9 - TYPE 2 DIABETES MELLITUS WITHOUT COMPLICATIONS 7 ac calculous cholecystitis plan will start patient on meropenam patient will need some type of intervention close watch npo rest as per surgery and the team
[2018-11-08] MEDS: MEROPENEM 1 GM in DEXTROSE 5%-WATER 100 ML IVPB SCH (17:52)
--- NOTE | 2018-11-08 20:04 | PN ---
Progress Note, Physician History of Present Illness: tube in place - Current Medication List Current Medications: Active Medications Acetaminophen (Ofirmev Injection -) 1,000 mg IVPB Q6H PRN PRN Reason: FEVER Amlodipine Besylate (Norvasc -) 10 mg PO DAILY [facility] Last Admin: 11/08/18 12:05 Dose: Not Given Atorvastatin Calcium (Lipitor -) 40 mg PO HS [facility] Last Admin: 11/07/18 22:10 Dose: 40 mg Collagenase (Santyl -) 1 applic TP DAILY [facility]; Protocol Last Admin: 11/08/18 14:00 Dose: Not Given Duloxetine HCl (Cymbalta -) 30 mg PO HS [facility] Last Admin: 11/07/18 22:10 Dose: 30 mg Heparin Sodium (Porcine) (Heparin -) 5,000 unit SQ BID [facility] Last Admin: 11/08/18 12:39 Dose: Not Given Sodium Chloride (Normal Saline -) 1,000 mls @ 75 mls/hr IV ASDIR [facility] Last Admin: 11/08/18 12:24 Dose: 75 mls/hr Meropenem 1 gm/ Dextrose 100 mls @ 200 mls/hr IVPB Q8H-IV [facility] Last Admin: 11/08/18 17:52 Dose: 200 mls/hr Insulin Detemir (Levemir Vial) 5 units SQ HS [facility] Last Admin: 11/07/18 22:11 Dose: Not Given Morphine Sulfate (Morphine Sulfate) 2 mg IVPUSH Q4H PRN PRN Reason: PAIN LEVEL 4 - 6 - Objective Vital Signs: Vital Signs Temperature 98.0 F 11/08/18 18:00 Pulse Rate 68 11/08/18 18:00 Respiratory Rate 20 11/08/18 18:00 Blood Pressure 151/57 L 11/08/18 18:00 O2 Sat by Pulse Oximetry (%) 100 11/08/18 15:02 Constitutional: Yes: No Distress HENT: Yes: Atraumatic Neck: Yes: Supple Cardiovascular: Yes: Regular Rate and Rhythm Respiratory: Yes: CTA Bilaterally Gastrointestinal: Yes: Normal Bowel Sounds, Tenderness, Other (cholecystotomy tube in place) Extremities: Yes: WNL Neurological: Yes: Alert, Oriented Labs: CBC, BMP 11/08/18 07:45 11/08/18 07:45 INR, PTT INR 1.09 (0.83-1.09) 11/07/18 12:53 Problem List - Problems (1) ELVIE (acute kidney injury) Assessment/Plan: iv hydration fu labs cr improving Code(s): N17.9 - ACUTE KIDNEY FAILURE, UNSPECIFIED (2) Cholelithiasis Code(s): K80.20 - CALCULUS OF GALLBLADDER W/O CHOLECYSTITIS W/O OBSTRUCTION (3) Cholecystostomy tube dysfunction Assessment/Plan: surgery consult..reviewed had cholesystotomy tube replaced Code(s): T85.518A - BREAKDOWN (MECHANICAL) OF GI PROSTH DEV/GRFT, INIT (4) HTN (hypertension) Assessment/Plan: on meds stable Code(s): I10 - ESSENTIAL (PRIMARY) HYPERTENSION (5) Hyperlipidemia Assessment/Plan: on meds Code(s): E78.5 - HYPERLIPIDEMIA, UNSPECIFIED (6) Type 2 diabetes mellitus Assessment/Plan: on insulin and bgm...npo so hold insulin Code(s): E11.9 - TYPE 2 DIABETES MELLITUS WITHOUT COMPLICATIONS (7) UTI (urinary tract infection) Assessment/Plan: on abx cxs sent Code(s): N39.0 - URINARY TRACT INFECTION, SITE NOT SPECIFIED
[2018-11-08] MEDS: INSULIN (LEVEMIR) 100 UNITS/ML UNITS SQ SCH (22:14)
[2018-11-08] MEDS: ATORVASTATIN CA 40 MG TABLET (FP) PO SCH (22:14)
[2018-11-08] MEDS: DULoxetine HCL 30 MG CAPSULE.DR (FP) PO SCH (22:14)
[2018-11-09] MEDS: MEROPENEM 1 GM in DEXTROSE 5%-WATER 100 ML IVPB SCH ×3 (01:20→17:20)
[2018-11-09] MEDS: SODIUM CHLORIDE 1,000 ML IV SCH ×2 (04:53→21:59)
[2018-11-09] MEDS ORDERED: PT OWN MED DRAWER 7, Y5N ONE ×2 (10:32→16:54)
[2018-11-09] MEDS: HEPARIN NA (PORCINE) 5,000 UNITS/ML 1ML VIAL SQ SCH ×2 (10:54→21:59)
[2018-11-09] MEDS: amLODIPine BESYLATE 10 MG TABLET (FP) PO SCH (10:54)
--- NOTE | 2018-11-09 12:17 | DS ---
Physical Examination Vital Signs: Vital Signs Temperature 98.2 F 11/09/18 09:44 Pulse Rate 77 11/09/18 09:44 Respiratory Rate 18 11/09/18 09:44 Blood Pressure 153/79 11/09/18 09:44 O2 Sat by Pulse Oximetry (%) 100 11/08/18 21:00 Labs: CBC, BMP 11/08/18 07:45 11/08/18 07:45 Discharge Summary Reason For Visit: ACUTE KIDNEY INJURY Current Active Problems ELVIE (acute kidney injury) (Acute) Cholelithiasis (Acute) Condition: Guarded - Instructions Referrals: Dominique Sierra MD [Primary Care Provider] - - Home Medications Comprehensive Discharge Medication List: Ambulatory Orders Amlodipine Besylate [Norvasc -] 10 mg PO DAILY tablet 08/31/18 Atorvastatin Ca [Lipitor] 40 mg PO HS tablet 08/31/18 Docusate Sodium [Colace -] 100 mg PO BID capsule 08/31/18 Ferrous Sulfate 325 mg PO DAILY #30 tablet 08/31/18 Hydrochlorothiazide [Hctz -] 50 mg PO DAILY tablet 08/31/18 Insulin (Levemir) [Levemir Vial] 5 units SQ HS units 08/31/18 Insulin Sliding Scale [Novolog Vial Sliding Scale -] 1 vial SQ Q6H units Losartan Potassium [Cozaar -] 100 mg PO DAILY tablet 08/31/18 Polyethylene Glycol 3350 [Miralax 119 gm Btl -] 17 gm PO BID bottle 08/31/18 Acetaminophen [Tylenol .Regular Strength -] 325 mg PO Q4H PRN 30 Days tablet Bacitracin - [Bacitracin Topical Ointment -] 1 applic TP DAILY 10/22/18 Collagenase Clostridium Hist. [Santyl -] 1 applic TP DAILY tube 10/22/18 Duloxetine HCl [Cymbalta] 30 mg PO HS 10/22/18 Sennosides [Senna -] 2 tab PO BID 10/22/18 dc
--- NOTE | 2018-11-09 13:57 | PN ---
Progress Note, Physician History of Present Illness: abd pain choleycystomy tube - Current Medication List Current Medications: Active Medications Acetaminophen (Tylenol -) 650 mg PO Q6H PRN PRN Reason: FEVER Amlodipine Besylate (Norvasc -) 10 mg PO DAILY [facility] Last Admin: 11/09/18 10:54 Dose: 10 mg Atorvastatin Calcium (Lipitor -) 40 mg PO [facility] Last Admin: 11/08/18 22:14 Dose: 40 mg Collagenase (Santyl -) 1 applic TP DAILY [facility]; Protocol Last Admin: 11/08/18 14:00 Dose: Not Given Duloxetine HCl (Cymbalta -) 30 mg PO HS [facility] Last Admin: 11/08/18 22:14 Dose: 30 mg Heparin Sodium (Porcine) (Heparin -) 5,000 unit SQ BID [facility] Last Admin: 11/09/18 10:54 Dose: 5,000 unit Sodium Chloride (Normal Saline -) 1,000 mls @ 75 mls/hr IV ASDIR REPLACED BY [facility] Last Admin: 11/09/18 04:53 Dose: 75 mls/hr Meropenem 1 gm/ Dextrose 100 mls @ 200 mls/hr IVPB Q8H-IV [facility] Last Admin: 11/09/18 10:54 Dose: 200 mls/hr Insulin Detemir (Levemir Vial) 5 units SQ [facility] Last Admin: 11/08/18 22:14 Dose: 5 units Morphine Sulfate (Morphine Sulfate) 2 mg IVPUSH Q4H PRN PRN Reason: PAIN LEVEL 4 - 6 - Objective Vital Signs: Vital Signs Temperature 98.2 F 11/09/18 09:44 Pulse Rate 77 11/09/18 09:44 Respiratory Rate 18 11/09/18 09:44 Blood Pressure 153/79 11/09/18 09:44 O2 Sat by Pulse Oximetry (%) 97 11/09/18 10:00 Constitutional: Yes: Calm, Mild Distress Cardiovascular: Yes: Regular Rate and Rhythm Respiratory: Yes: Regular, CTA Bilaterally Gastrointestinal: Yes: Soft, Hypoactive Bowel Sounds, Other (choley tube in place) Musculoskeletal: Yes: WNL Extremities: Yes: WNL Neurological: Yes: Alert, Oriented Psychiatric: Yes: Alert, Oriented Labs: CBC, BMP 11/08/18 07:45 11/08/18 07:45 INR, PTT INR 1.09 (0.83-1.09) 11/07/18 12:53 Assessment/Plan Problem List - Problems (1) ELVIE (acute kidney injury) Code(s): N17.9 - ACUTE KIDNEY FAILURE, UNSPECIFIED (2) Cholelithiasis Code(s): K80.20 - CALCULUS OF GALLBLADDER W/O CHOLECYSTITIS W/O OBSTRUCTION (3) Cholecystostomy tube dysfunction Code(s): T85.518A - BREAKDOWN (MECHANICAL) OF GI PROSTH DEV/GRFT, INIT (4) HTN (hypertension) Code(s): I10 - ESSENTIAL (PRIMARY) HYPERTENSION (5) Hyperlipidemia Code(s): E78.5 - HYPERLIPIDEMIA, UNSPECIFIED (6) Type 2 diabetes mellitus Code(s): E11.9 - TYPE 2 DIABETES MELLITUS WITHOUT COMPLICATIONS 7 ac calculous cholecystitis 8 uti patients urine positive also awaiting cx report from the fluid plan will continue abx await for identification of the organism once we have all of those will decide final plan rest as per the team
[2018-11-09] MEDS: COLLAGENASE CLOSTRIDIUM HIST. 30 GRAMS TUBE TP SCH (17:37)
--- NOTE | 2018-11-09 19:34 | PN ---
Progress Note, Physician History of Present Illness: no complaints - Current Medication List Current Medications: Active Medications Acetaminophen (Tylenol -) 650 mg PO Q6H PRN PRN Reason: FEVER Amlodipine Besylate (Norvasc -) 10 mg PO DAILY [facility] Last Admin: 11/09/18 10:54 Dose: 10 mg Atorvastatin Calcium (Lipitor -) 40 mg PO HS [facility] Last Admin: 11/08/18 22:14 Dose: 40 mg Collagenase (Santyl -) 1 applic TP DAILY [facility]; Protocol Last Admin: 11/09/18 17:37 Dose: 1 applic Duloxetine HCl (Cymbalta -) 30 mg PO HS [facility] Last Admin: 11/08/18 22:14 Dose: 30 mg Heparin Sodium (Porcine) (Heparin -) 5,000 unit SQ BID [facility] Last Admin: 11/09/18 10:54 Dose: 5,000 unit Sodium Chloride (Normal Saline -) 1,000 mls @ 75 mls/hr IV ASDIR [facility] Last Admin: 11/09/18 04:53 Dose: 75 mls/hr Meropenem 1 gm/ Dextrose 100 mls @ 200 mls/hr IVPB Q8H-IV [facility] Last Admin: 11/09/18 17:20 Dose: 200 mls/hr Insulin Detemir (Levemir Vial) 5 units SQ HS [facility] Last Admin: 11/08/18 22:14 Dose: 5 units Morphine Sulfate (Morphine Sulfate) 2 mg IVPUSH Q4H PRN PRN Reason: PAIN LEVEL 4 - 6 - Objective Vital Signs: Vital Signs Temperature 98.7 F 11/09/18 18:00 Pulse Rate 74 11/09/18 18:00 Respiratory Rate 20 11/09/18 18:00 Blood Pressure 156/114 H 11/09/18 18:00 O2 Sat by Pulse Oximetry (%) 97 11/09/18 10:00 HENT: Yes: Atraumatic Neck: Yes: Supple Cardiovascular: Yes: Regular Rate and Rhythm Respiratory: Yes: CTA Bilaterally Gastrointestinal: Yes: Tenderness (at the tube site) Extremities: Yes: WNL Edema: No Peripheral Pulses WNL: Yes Neurological: Yes: Alert, Oriented Labs: CBC, BMP 11/08/18 07:45 11/08/18 07:45 INR, PTT INR 1.09 (0.83-1.09) 11/07/18 12:53 Problem List - Problems (1) ELVIE (acute kidney injury) Assessment/Plan: iv hydration fu labs Code(s): N17.9 - ACUTE KIDNEY FAILURE, UNSPECIFIED (2) Cholelithiasis Code(s): K80.20 - CALCULUS OF GALLBLADDER W/O CHOLECYSTITIS W/O OBSTRUCTION (3) Cholecystostomy tube dysfunction Code(s): T85.518A - BREAKDOWN (MECHANICAL) OF GI PROSTH DEV/GRFT, INIT (4) HTN (hypertension) Assessment/Plan: on meds stable Code(s): I10 - ESSENTIAL (PRIMARY) HYPERTENSION (5) Hyperlipidemia Assessment/Plan: on meds Code(s): E78.5 - HYPERLIPIDEMIA, UNSPECIFIED (6) Type 2 diabetes mellitus Assessment/Plan: on insulin and bgm. Code(s): E11.9 - TYPE 2 DIABETES MELLITUS WITHOUT COMPLICATIONS (7) UTI (urinary tract infection) Assessment/Plan: on abx cxs noted Code(s): N39.0 - URINARY TRACT INFECTION, SITE NOT SPECIFIED
[2018-11-09] MEDS ORDERED: INSULIN (LEVEMIR) 100 UNITS/ML UNITS SQ ONE (21:38)
[2018-11-09] MEDS: DULoxetine HCL 30 MG CAPSULE.DR (FP) PO SCH (21:59)
[2018-11-09] MEDS: INSULIN (LEVEMIR) 100 UNITS/ML UNITS SQ SCH (21:59)
[2018-11-09] MEDS: ATORVASTATIN CA 40 MG TABLET (FP) PO SCH (21:59)
[2018-11-10] MEDS ORDERED: PT OWN MED DRAWER 7, Y5N ONE ×3 (01:14→17:43)
[2018-11-10] MEDS: MEROPENEM 1 GM in DEXTROSE 5%-WATER 100 ML IVPB SCH ×3 (01:29→17:44)
[2018-11-10 07:45] LABS: BASO % 2.6 % (0-2.0); EOS % 0.7 % (0-4.5); HEMATOCRIT 30.8 % (32.4-45.2); HEMOGLOBIN 10.3 GM/dL (10.7-15.3); LYMPH % 18.9 % (8-40); MCH 28.3 pg (25.7-33.7); MCHC 33.3 g/dl (32.0-36.0); MONO % 9.8 % (3.8-10.2); PLATELET COUNT 261 K/MM3 (134-434); RBC 3.62 M/mm3 (3.60-5.2); RDW 16.8 % (11.6-15.6)
[2018-11-10] MEDS ORDERED: INSULIN (LEVEMIR) 100 UNITS/ML UNITS SQ ONE (07:53)
[2018-11-10] MEDS ORDERED: INSULIN (NOVOLOG) ASPART 100 UNITS/ML 10ML VIAL ONE (07:54)
[2018-11-10 08:02] LABS: ALBUMIN 2.5 g/dl (3.4-5.0); ALK PHOS 64 U/L (45-117); ANION GAP 7 MMOL/L (8-16); BILIRUBIN,TOTAL 0.5 mg/dL (0.2-1); CALCIUM 7.8 mg/dL (8.5-10.1); CHLORIDE 98 mmol/L (98-107); CO2 30 mmol/L (21-32); CREATININE 0.6 mg/dL (0.55-1.3); GLUCOSE,RANDOM 155 mg/dL (74-106); POTASSIUM 3.3 mmol/L (3.5-5.1); SGOT/AST 18 U/L (15-37); SGPT/ALT 17 U/L (13-61); SODIUM 135 mmol/L (136-145); TOT PROT 6.5 g/dl (6.4-8.2)
[2018-11-10 08:03] LABS: BLOOD UREA NITROGEN 9 mg/dL (7-18)
[2018-11-10] MEDS: amLODIPine BESYLATE 10 MG TABLET (FP) PO SCH (12:19)
[2018-11-10] MEDS: HEPARIN NA (PORCINE) 5,000 UNITS/ML 1ML VIAL SQ SCH ×2 (12:20→23:08)
[2018-11-10] MEDS ORDERED: POTASSIUM CHLORIDE TABS 20 MEQ TABLET.ER (FP) PO ONE (13:00)
--- NOTE | 2018-11-10 15:28 | PN ---
Progress Note, Physician History of Present Illness: stable doing well choleytube draining well urine cx and sensitivities noted - Current Medication List Current Medications: Active Medications Acetaminophen (Tylenol -) 650 mg PO Q6H PRN PRN Reason: FEVER Amlodipine Besylate (Norvasc -) 10 mg PO DAILY [facility] Last Admin: 11/10/18 12:19 Dose: 10 mg Atorvastatin Calcium (Lipitor -) 40 mg PO HS [facility] Last Admin: 11/09/18 21:59 Dose: 40 mg Collagenase (Santyl -) 1 applic TP DAILY [facility]; Protocol Last Admin: 11/09/18 17:37 Dose: 1 applic Duloxetine HCl (Cymbalta -) 30 mg PO HS [facility] Last Admin: 11/09/18 21:59 Dose: 30 mg Heparin Sodium (Porcine) (Heparin -) 5,000 unit SQ BID [facility] Last Admin: 11/10/18 12:20 Dose: 5,000 unit Sodium Chloride (Normal Saline -) 1,000 mls @ 75 mls/hr IV ASDIR [facility] Last Admin: 11/09/18 21:59 Dose: Not Given Meropenem 1 gm/ Dextrose 100 mls @ 200 mls/hr IVPB Q8H-IV [facility] Last Admin: 11/10/18 12:19 Dose: 200 mls/hr Insulin Detemir (Levemir Vial) 5 units SQ HS [facility] Last Admin: 11/09/18 21:59 Dose: 5 units Morphine Sulfate (Morphine Sulfate) 2 mg IVPUSH Q4H PRN PRN Reason: PAIN LEVEL 4 - 6 - Objective Vital Signs: Vital Signs Temperature 98.2 F 11/10/18 10:00 Pulse Rate 76 11/10/18 10:00 Respiratory Rate 18 11/10/18 10:00 Blood Pressure 149/75 11/10/18 10:00 O2 Sat by Pulse Oximetry (%) 98 11/09/18 21:00 Constitutional: Yes: No Distress, Calm Cardiovascular: Yes: Regular Rate and Rhythm Respiratory: Yes: Regular, CTA Bilaterally Gastrointestinal: Yes: Normal Bowel Sounds, Soft, Other (choley tube in place) Musculoskeletal: Yes: WNL Extremities: Yes: WNL Neurological: Yes: Alert, Oriented Psychiatric: Yes: Alert, Oriented Labs: CBC, BMP 11/10/18 06:30 11/10/18 06:30 INR, PTT INR 1.09 (0.83-1.09) 11/07/18 12:53 Assessment/Plan Problem List - Problems (1) ELVIE (acute kidney injury) Code(s): N17.9 - ACUTE KIDNEY FAILURE, UNSPECIFIED (2) Cholelithiasis Code(s): K80.20 - CALCULUS OF GALLBLADDER W/O CHOLECYSTITIS W/O OBSTRUCTION (3) Cholecystostomy tube dysfunction Code(s): T85.518A - BREAKDOWN (MECHANICAL) OF GI PROSTH DEV/GRFT, INIT (4) HTN (hypertension) Code(s): I10 - ESSENTIAL (PRIMARY) HYPERTENSION (5) Hyperlipidemia Code(s): E78.5 - HYPERLIPIDEMIA, UNSPECIFIED (6) Type 2 diabetes mellitus Code(s): E11.9 - TYPE 2 DIABETES MELLITUS WITHOUT COMPLICATIONS 7 ac calculous cholecystitis 8 uti patients urine positive also awaiting cx report from the fluid plan cx results noted will stop abx rest as per the team improving
[2018-11-10] MEDS: SODIUM CHLORIDE 1,000 ML IV SCH ×2 (15:45→23:03)
--- NOTE | 2018-11-10 16:32 | PN ---
Progress Note, Physician - Current Medication List Current Medications: Active Medications Acetaminophen (Tylenol -) 650 mg PO Q6H PRN PRN Reason: FEVER Amlodipine Besylate (Norvasc -) 10 mg PO DAILY [facility] Last Admin: 11/10/18 12:19 Dose: 10 mg Atorvastatin Calcium (Lipitor -) 40 mg PO HS [facility] Last Admin: 11/09/18 21:59 Dose: 40 mg Collagenase (Santyl -) 1 applic TP DAILY [facility]; Protocol Last Admin: 11/09/18 17:37 Dose: 1 applic Duloxetine HCl (Cymbalta -) 30 mg PO HS [facility] Last Admin: 11/09/18 21:59 Dose: 30 mg Heparin Sodium (Porcine) (Heparin -) 5,000 unit SQ BID [facility] Last Admin: 11/10/18 12:20 Dose: 5,000 unit Sodium Chloride (Normal Saline -) 1,000 mls @ 75 mls/hr IV ASDIR [facility] Last Admin: 11/10/18 15:45 Dose: 75 mls/hr Meropenem 1 gm/ Dextrose 100 mls @ 200 mls/hr IVPB Q8H-IV [facility] Last Admin: 11/10/18 12:19 Dose: 200 mls/hr Insulin Detemir (Levemir Vial) 5 units SQ HS [facility] Last Admin: 11/09/18 21:59 Dose: 5 units Morphine Sulfate (Morphine Sulfate) 2 mg IVPUSH Q4H PRN PRN Reason: PAIN LEVEL 4 - 6 - Objective Vital Signs: Vital Signs Temperature 99.3 F 11/10/18 15:36 Pulse Rate 76 11/10/18 15:36 Respiratory Rate 18 11/10/18 15:36 Blood Pressure 157/80 11/10/18 15:36 O2 Sat by Pulse Oximetry (%) 98 11/10/18 09:00 Constitutional: Yes: No Distress HENT: Yes: Atraumatic Neck: Yes: Supple Cardiovascular: Yes: Regular Rate and Rhythm Respiratory: Yes: CTA Bilaterally Gastrointestinal: Yes: Normal Bowel Sounds, Other (tube in place) Extremities: Yes: WNL Edema: No Neurological: Yes: Alert, Oriented Labs: CBC, BMP 11/10/18 06:30 11/10/18 06:30 INR, PTT INR 1.09 (0.83-1.09) 11/07/18 12:53 Problem List - Problems (1) ELVIE (acute kidney injury) Assessment/Plan: iv hydration fu labs Code(s): N17.9 - ACUTE KIDNEY FAILURE, UNSPECIFIED (2) Cholelithiasis Code(s): K80.20 - CALCULUS OF GALLBLADDER W/O CHOLECYSTITIS W/O OBSTRUCTION (3) Cholecystostomy tube dysfunction Assessment/Plan: surgery consult..reviewed had cholesystotomy tube replaced Code(s): T85.518A - BREAKDOWN (MECHANICAL) OF GI PROSTH DEV/GRFT, INIT (4) HTN (hypertension) Assessment/Plan: on meds stable Code(s): I10 - ESSENTIAL (PRIMARY) HYPERTENSION (5) Hyperlipidemia Assessment/Plan: on meds Code(s): E78.5 - HYPERLIPIDEMIA, UNSPECIFIED (6) Type 2 diabetes mellitus Assessment/Plan: on insulin and bgm. Code(s): E11.9 - TYPE 2 DIABETES MELLITUS WITHOUT COMPLICATIONS (7) UTI (urinary tract infection) Code(s): N39.0 - URINARY TRACT INFECTION, SITE NOT SPECIFIED
[2018-11-10] MEDS: COLLAGENASE CLOSTRIDIUM HIST. 30 GRAMS TUBE TP SCH (18:21)
[2018-11-10] MEDS: ATORVASTATIN CA 40 MG TABLET (FP) PO SCH (23:08)
[2018-11-10] MEDS: INSULIN (LEVEMIR) 100 UNITS/ML UNITS SQ SCH (23:08)
[2018-11-10] MEDS: DULoxetine HCL 30 MG CAPSULE.DR (FP) PO SCH (23:08)
[2018-11-11] MEDS: MEROPENEM 1 GM in DEXTROSE 5%-WATER 100 ML IVPB SCH ×2 (02:41→12:20)
[2018-11-11] MEDS: ACETAMINOPHEN 325 MG TABLET (FP) PO PRN ×3 (09:21→21:37)
[2018-11-11] MEDS ORDERED: PT OWN MED DRAWER 7, Y5N ONE (11:39)
[2018-11-11] MEDS: HEPARIN NA (PORCINE) 5,000 UNITS/ML 1ML VIAL SQ SCH ×2 (11:41→21:36)
[2018-11-11] MEDS: amLODIPine BESYLATE 10 MG TABLET (FP) PO SCH (11:41)
--- NOTE | 2018-11-11 13:13 | PN ---
Progress Note, Physician History of Present Illness: stable c/o of leg pain rt side all cx reports noted - Current Medication List Current Medications: Active Medications Acetaminophen (Tylenol -) 650 mg PO Q6H PRN PRN Reason: FEVER Last Admin: 11/11/18 09:21 Dose: 650 mg Amlodipine Besylate (Norvasc -) 10 mg PO DAILY [facility] Last Admin: 11/11/18 11:41 Dose: 10 mg Atorvastatin Calcium (Lipitor -) 40 mg PO [facility] Last Admin: 11/10/18 23:08 Dose: 40 mg Collagenase (Santyl -) 1 applic TP DAILY [facility]; Protocol Last Admin: 11/10/18 18:21 Dose: 1 applic Docusate Sodium (Colace -) 100 mg PO BID [facility] Duloxetine HCl (Cymbalta -) 30 mg PO HS [facility] Last Admin: 11/10/18 23:08 Dose: 30 mg Heparin Sodium (Porcine) (Heparin -) 5,000 unit SQ BID [facility] Last Admin: 11/11/18 11:41 Dose: 5,000 unit Sodium Chloride (Normal Saline -) 1,000 mls @ 75 mls/hr IV ASDIR [facility] Last Admin: 11/10/18 23:03 Dose: Not Given Meropenem 1 gm/ Dextrose 100 mls @ 200 mls/hr IVPB Q8H-IV [facility] Last Admin: 11/11/18 12:20 Dose: 200 mls/hr Insulin Aspart (Novolog Vial) 5 units SQ ONCE ONE Stop: 11/11/18 13:16 Insulin Detemir (Levemir Vial) 5 units SQ HS [facility] Last Admin: 11/10/18 23:08 Dose: 5 units - Objective Vital Signs: Vital Signs Temperature 98.5 F 11/11/18 09:47 Pulse Rate 94 H 11/11/18 09:47 Respiratory Rate 20 11/11/18 09:47 Blood Pressure 134/75 11/11/18 09:47 O2 Sat by Pulse Oximetry (%) 94 L 11/11/18 09:00 Constitutional: Yes: Calm, Mild Distress Cardiovascular: Yes: Regular Rate and Rhythm Respiratory: Yes: Regular, CTA Bilaterally Gastrointestinal: Yes: Normal Bowel Sounds, Soft Musculoskeletal: Yes: Other (rt leg bka) Extremities: Yes: Amputation Neurological: Yes: Alert, Oriented Psychiatric: Yes: Alert, Oriented Labs: CBC, BMP 11/10/18 06:30 11/10/18 06:30 INR, PTT INR 1.09 (0.83-1.09) 11/07/18 12:53 Assessment/Plan Problem List - Problems (1) ELVIE (acute kidney injury) Code(s): N17.9 - ACUTE KIDNEY FAILURE, UNSPECIFIED (2) Cholelithiasis Code(s): K80.20 - CALCULUS OF GALLBLADDER W/O CHOLECYSTITIS W/O OBSTRUCTION (3) Cholecystostomy tube dysfunction Code(s): T85.518A - BREAKDOWN (MECHANICAL) OF GI PROSTH DEV/GRFT, INIT (4) HTN (hypertension) Code(s): I10 - ESSENTIAL (PRIMARY) HYPERTENSION (5) Hyperlipidemia Code(s): E78.5 - HYPERLIPIDEMIA, UNSPECIFIED (6) Type 2 diabetes mellitus Code(s): E11.9 - TYPE 2 DIABETES MELLITUS WITHOUT COMPLICATIONS 7 ac calculous cholecystitis 8 uti plan will switch to oral abx continue doxy for 7 more days rest as per the team all cx results noted
[2018-11-11] MEDS ORDERED: INSULIN (NOVOLOG) ASPART 100 UNITS/ML 10ML VIAL SQ ONE (13:15)
[2018-11-11] MEDS: DOCUSATE SODIUM 100 MG CAPSULE (FP) PO SCH ×2 (13:24→21:35)
[2018-11-11] MEDS: DOXYCYCLINE HYCLATE 100 MG CAPSULE PO SCH (18:16)
[2018-11-11] MEDS: COLLAGENASE CLOSTRIDIUM HIST. 30 GRAMS TUBE TP SCH (18:20)
--- NOTE | 2018-11-11 18:49 | PN ---
Progress Note, Physician History of Present Illness: pain left knee - Current Medication List Current Medications: Active Medications Acetaminophen (Tylenol -) 650 mg PO Q6H PRN PRN Reason: FEVER Last Admin: 11/11/18 16:14 Dose: 650 mg Amlodipine Besylate (Norvasc -) 10 mg PO DAILY [facility] Last Admin: 11/11/18 11:41 Dose: 10 mg Atorvastatin Calcium (Lipitor -) 40 mg PO HS [facility] Last Admin: 11/10/18 23:08 Dose: 40 mg Collagenase (Santyl -) 1 applic TP DAILY [facility]; Protocol Last Admin: 11/11/18 18:20 Dose: 1 applic Docusate Sodium (Colace -) 100 mg PO BID [facility] Last Admin: 11/11/18 13:24 Dose: 100 mg Doxycycline Hyclate (Vibramycin -) 100 mg PO BID@1000,1800 [facility] Last Admin: 11/11/18 18:16 Dose: 100 mg Duloxetine HCl (Cymbalta -) 30 mg PO [facility] Last Admin: 11/10/18 23:08 Dose: 30 mg Heparin Sodium (Porcine) (Heparin -) 5,000 unit SQ BID [facility] Last Admin: 11/11/18 11:41 Dose: 5,000 unit Sodium Chloride (Normal Saline -) 1,000 mls @ 75 mls/hr IV ASDIR [facility] Last Admin: 11/10/18 23:03 Dose: Not Given Insulin Detemir (Levemir Vial) 5 units SQ [facility] Last Admin: 11/10/18 23:08 Dose: 5 units - Objective Vital Signs: Vital Signs Temperature 99.3 F 11/11/18 18:20 Pulse Rate 86 11/11/18 18:20 Respiratory Rate 19 11/11/18 18:20 Blood Pressure 152/65 11/11/18 18:20 O2 Sat by Pulse Oximetry (%) 94 L 11/11/18 09:00 Constitutional: Yes: No Distress HENT: Yes: Atraumatic Neck: Yes: Supple Cardiovascular: Yes: Regular Rate and Rhythm Respiratory: Yes: CTA Bilaterally Gastrointestinal: Yes: Tenderness (at the tube site) Extremities: Yes: Other (R bka mild swelling left knee) Neurological: Yes: Alert, Oriented Labs: CBC, BMP 11/10/18 06:30 11/10/18 06:30 INR, PTT INR 1.09 (0.83-1.09) 11/07/18 12:53 Problem List - Problems (1) ELVIE (acute kidney injury) Assessment/Plan: iv hydration fu labs Code(s): N17.9 - ACUTE KIDNEY FAILURE, UNSPECIFIED (2) Cholelithiasis Code(s): K80.20 - CALCULUS OF GALLBLADDER W/O CHOLECYSTITIS W/O OBSTRUCTION (3) Cholecystostomy tube dysfunction Assessment/Plan: surgery consult..reviewed had cholesystotomy tube replaced Code(s): T85.518A - BREAKDOWN (MECHANICAL) OF GI PROSTH DEV/GRFT, INIT (4) HTN (hypertension) Code(s): I10 - ESSENTIAL (PRIMARY) HYPERTENSION (5) Hyperlipidemia Code(s): E78.5 - HYPERLIPIDEMIA, UNSPECIFIED (6) Type 2 diabetes mellitus Code(s): E11.9 - TYPE 2 DIABETES MELLITUS WITHOUT COMPLICATIONS (7) UTI (urinary tract infection) Assessment/Plan: on abx cxs noted Code(s): N39.0 - URINARY TRACT INFECTION, SITE NOT SPECIFIED Assessment/Plan dvt negative has bakers cyst will do cold compresses and prn motrin on po abx now dc planning for tomorrow morning d/w pts daughter care plan in detail brunilda chaney
[2018-11-11] MEDS ORDERED: IBUPROFEN 600 MG TABLET (FP) PO PRN (19:05)
[2018-11-11] MEDS: SODIUM CHLORIDE 1,000 ML IV SCH (21:35)
[2018-11-11] MEDS: ATORVASTATIN CA 40 MG TABLET (FP) PO SCH (21:35)
[2018-11-11] MEDS: DULoxetine HCL 30 MG CAPSULE.DR (FP) PO SCH (21:36)
[2018-11-11] MEDS: INSULIN (LEVEMIR) 100 UNITS/ML UNITS SQ SCH (21:36)
[2018-11-12] MEDS ORDERED: PT OWN MED DRAWER 7, Y5N ONE (09:48)
[2018-11-12 10:10] VITALS: BP 148/67; PULSE 90; TEMP 99.5
[2018-11-12] MEDS: HEPARIN NA (PORCINE) 5,000 UNITS/ML 1ML VIAL SQ SCH (10:19)
[2018-11-12] MEDS: amLODIPine BESYLATE 10 MG TABLET (FP) PO SCH (10:19)
[2018-11-12] MEDS: DOXYCYCLINE HYCLATE 100 MG CAPSULE PO SCH (10:19)
[2018-11-12] MEDS: DOCUSATE SODIUM 100 MG CAPSULE (FP) PO SCH (10:19)
[2018-11-12] MEDS: COLLAGENASE CLOSTRIDIUM HIST. 30 GRAMS TUBE TP SCH (10:21)
--- NOTE | 2018-11-12 20:12 | DS ---
Physical Examination Vital Signs: Vital Signs Temperature 99.5 F 11/12/18 09:00 Pulse Rate 90 11/12/18 09:00 Respiratory Rate 18 11/12/18 09:00 Blood Pressure 148/67 11/12/18 09:00 O2 Sat by Pulse Oximetry (%) 98 11/12/18 09:00 Constitutional: Yes: No Distress HENT: Yes: Atraumatic Neck: Yes: Supple Cardiovascular: Yes: Regular Rate and Rhythm Respiratory: Yes: CTA Bilaterally Gastrointestinal: Yes: Normal Bowel Sounds, Other (tube in place) Extremities: Yes: Other (R bka) Neurological: Yes: Alert, Oriented Labs: CBC, BMP 11/10/18 06:30 11/10/18 06:30 Discharge Summary Reason For Visit: ACUTE KIDNEY INJURY Condition: Guarded - Instructions Diet, Activity, Other Instructions: cold compresses to L knee, prn motrin dvt prophylaxis as long as patient needs it see your pmd in 2-3 days follow up with suregery 1 week Referrals: Dominique Sierra MD [Primary Care Provider] - Disposition: [facility] - Home Medications Comprehensive Discharge Medication List: Ambulatory Orders Amlodipine Besylate [Norvasc -] 10 mg PO DAILY tablet 08/31/18 Atorvastatin Ca [Lipitor] 40 mg PO HS tablet 08/31/18 Docusate Sodium [Colace -] 100 mg PO BID capsule 08/31/18 Ferrous Sulfate 325 mg PO DAILY #30 tablet 08/31/18 Hydrochlorothiazide [Hctz -] 50 mg PO DAILY tablet 08/31/18 Insulin (Levemir) [Levemir Vial] 5 units SQ HS units 08/31/18 Insulin Sliding Scale [Novolog Vial Sliding Scale -] 1 vial SQ Q6H units Losartan Potassium [Cozaar -] 100 mg PO DAILY tablet 08/31/18 Polyethylene Glycol 3350 [Miralax 119 gm Btl -] 17 gm PO BID bottle 08/31/18 Acetaminophen [Tylenol .Regular Strength -] 325 mg PO Q4H PRN 30 Days tablet Bacitracin - [Bacitracin Topical Ointment -] 1 applic TP DAILY 10/22/18 Collagenase Clostridium Hist. [Santyl -] 1 applic TP DAILY tube 10/22/18 Duloxetine HCl [Cymbalta] 30 mg PO HS 10/22/18 Sennosides [Senna -] 2 tab PO BID 10/22/18 Doxycycline Hyclate [Vibramycin -] 100 mg PO BID@1000,1800 #14 capsule 11/11/18 Heparin - 5,000 unit SQ BID vial 11/11/18 Ibuprofen [Motrin -] 600 mg PO Q6H PRN tablet 11/11/18 dc snf
== END 2018-11-12 13:30 | DRG 445 ==
LOC: JER 10:49 → JERBED 16:56 → J5S 20:41
PROVIDERS: ADMIT Internal Medicine; ATTEND Internal Medicine
PROC: 0F9430Z Drainage of Gallbladder with Drainage Device, Percutaneous Approach (ICD-10-PCS; principal; 2018-11-08)
DX: K80.00 Calculus of gallbladder with acute cholecystitis without obstruction (principal); N17.9 Acute kidney failure, unspecified; N39.0 Urinary tract infection, site not specified; I10 Essential (primary) hypertension; E78.5 Hyperlipidemia, unspecified; E11.9 Type 2 diabetes mellitus without complications; K21.9 Gastro-esophageal reflux disease without esophagitis
CPT/HCPCS: 36415; 47532; 71045-TC-FY; 74176-TC; 76000-TC-FY; 76098-TC-FY; 76705-TC; 76998-TC; 80053; 81003; 81015; 82962; 85025; 85610; 87040; 87070; 87075; 87086; 87186; 87205; 87899; 93005; 93010; 93971-TC; 99283-25; A4358; C1729; C1769; J0131; J1644; J7030

== ENCOUNTER → 2019-02-06 | Day surgery (SDC) | payer OTHER | END | disposition home or self-care (01) | LOC: JRADIR 10:41 | PROVIDERS: ATTEND Surgery | PROC: 0T2BX0Z Change Drainage Device in Bladder, External Approach (ICD-10-PCS; principal; 2019-02-06) | DX: T85.9XXA Unspecified complication of internal prosthetic device, implant and graft, initial encounter (principal); Y82.8 Other medical devices associated with adverse incidents; Y92.9 Unspecified place or not applicable | CPT/HCPCS: 47536; 75984-TC-RT-FY; 76000-TC-FY; A4358; C1729; C1769; C1887 ==

== ENCOUNTER → 2019-06-10 | Day surgery (SDC) | payer OTHER | END | disposition home or self-care (01) | LOC: JRADIR 09:32 | PROVIDERS: ATTEND Surgery | PROC: 0W2JX0Z Change Drainage Device in Pelvic Cavity, External Approach (ICD-10-PCS; principal; 2019-06-10) | DX: Z46.89 Encounter for fitting and adjustment of other specified devices (principal); K80.20 Calculus of gallbladder without cholecystitis without obstruction | CPT/HCPCS: 47536; C1729; 51710; 75984-TC-RT-FY; 76000-TC-FY; A4358; C1769 ==

== ENCOUNTER 2019-07-12 14:03 | Emergency (ER) | payer OTHER ==
[2019-07-12 15:48] VITALS: BP 137/61; PULSE 72; TEMP 98; BMI 25.7
--- NOTE | 2019-07-12 17:48 | PDOC ---
History of Present Illness - General Chief Complaint: Back Pain Stated Complaint: Injury Time Seen by Provider: 07/12/19 17:22 History Source: Patient, Old Records Exam Limitations: No Limitations - History of Present Illness Initial Comments: 07/12/19 17:41 HISTORY OF PRESENT ILLNESS: This is an 84-year-old woman with history of non- insulin-dependent diabetes, hypertension, right BKA, cholelithiasis status post cholecystotomy drainage tube who sent from [place] [facility] the [place] for evaluation of questionable left hip fracture sustained during a fall more than 3 weeks ago. Patient states she been complaining of pain was sent for an x-ray which showed a questionable fracture within the sub-capital region. Patient also with complaint of bilateral shoulder pain and a fluid sensation in her head status post fall. Patient had evaluation after the fall and had a negative head CT at that time. Patient is refusing pain medication at this time. No recent travel or sick contacts. PAST MEDICAL HISTORY: See HPI SURGICAL HISTORY: See HPI ALLERGIES: Penicillin REVIEW OF SYSTEMS General/Constitutional: Denies fever or chills. Denies weakness, weight change. HEENT: Denies change in vision. Denies ear pain or discharge. Denies sore throat. Cardiovascular: Denies chest pain or shortness of breath. Respiratory: Denies cough, wheezing, or hemoptysis. Gastrointestinal: Denies nausea, vomiting, diarrhea or constipation. Denies rectal bleeding. Genitourinary: Denies dysuria, frequency, or change in urination. Musculoskeletal: see HPI right hip tender to palpation Skin and breasts: Denies rash or easy bruising. Neurologic: Denies headache, vertigo, loss of consciousness, or loss of sensation. Psychiatric: Denies depression or anxiety. Endocrine: Denies increased thirst. Denies abnormal weight change. Hematologic/Lymphatic: Denies anemia, easy bleeding, or history of blood clots. Allergic/Immunologic: Denies hives or skin allergy. Denies latex allergy. PHYSICAL EXAM General Appearance: Well-appearing, appropriately dressed. No apparent distress , no intoxication. HEENT: EOMI, PERRLA, normal ENT inspection, normal voice, TMs normal, pharynx normal. No conjunctival pallor. No photophobia, scleral icterus. Neck: Supple. Trachea midline. No tenderness, rigidity, carotid bruit, stridor , lymphadenopathy, or thyromegaly. Respiratory/Chest: Lungs CTAB. No shortness of breath, chest tenderness, respiratory distress, accessory muscle use. No crackles, rales, rhonchi, stridor , wheezing, dullness Cardiovascular: RRR. S1, S2. No JVD, murmur, bradycardia, tachycardia. Vascular Pulses: Dorsalis-Pedis (R): 2+, Dorsalis-Pedis (L): 2+ Gastrointestinal/Abdominal: Normal bowel sounds. Abdomen soft, non-distended. No tenderness or rebound tenderness. No organomegaly, pulsatile mass, guarding, hernia, hepatomegaly, splenomegaly. Cholecystotomy tube present. No signs of infection surrounding insertion site. Lymphatic: No adenopathy, tenderness. Musculoskeletal/Extremities: Normal inspection. Normal capillary refill. Pelvis Stable. Left hip tender to palpation over the trochanter. No bony crepitus, step-off or deformity is noted. No subcutaneous emphysema present. No ecchymosis noted. No CVA tenderness. No pedal edema, swelling, erythema or deformity. Shoulders tender to palpation bilaterally over the posterior surfaces. Increased pain with abduction of shoulders bilaterally with left worse than right. Integumentary: Appropriate color, dry, warm. No cyanosis, erythema, jaundice or rash Neurologic: geriatric personal care aide II-XII intact. Fully oriented, alert. Appropriate mood/affect. Motor strength 5/5. No appreciable EOM palsy, facial droop or sensory deficit. 07/12/19 20:48 Past History - Past Medical History Allergies/Adverse Reactions: Allergies Allergy/AdvReac Type Severity Reaction Status Date / Time Penicillins Allergy Verified 07/12/19 15:37 Home Medications: Ambulatory Orders Acetaminophen 500 mg PO 07/12/19 Amlodipine Besylate [Norvasc -] 10 mg PO DAILY 07/12/19 Aspirin 81 mg PO 07/12/19 Atorvastatin Ca [Lipitor] 40 mg PO HS 07/12/19 Duloxetine HCl [Cymbalta] 30 mg PO 07/12/19 Ferrous Sulfate 325 mg PO 07/12/19 Hydrochlorothiazide 50 mg PO 07/12/19 Insulin (LOG) Aspart [NovoLOG -] See Protocol SQ BID 07/12/19 Insulin Detemir [Levemir Flextouch] 12 unit SQ HS 07/12/19 Losartan Potassium [Cozaar] 100 mg PO 10/11/19 Multivitamins [Tab-A-Vit -] 1 tab PO DAILY 07/12/19 metFORMIN HCL [Metformin HCl] 500 mg PO 07/12/19 Anemia: No Asthma: No Cancer: No Cardiac Disorders: No CVA: No COPD: No CHF: No Dementia: No Diabetes: Yes GI Disorders: No Disorders: No HTN: Yes Hypercholesterolemia: Yes Liver Disease: No Seizures: No Thyroid Disease: No - Surgical History Abdominal Surgery: No Appendectomy: No Cardiac Surgery: No Cholecystectomy: No Lung Surgery: No Neurologic Surgery: No Orthopedic Surgery: Yes (RIGHT BELOW KNEE AMPUTATION) - Psycho Social/Smoking Cessation Hx Smoking History: Never smoked Have you smoked in the past 12 months: No Information on smoking cessation initiated: No Hx Alcohol Use: No Drug/Substance Use Hx: No Substance Use Type: None Hx Substance Use Treatment: No *Physical Exam - Vital Signs Last Vital Signs Temp Pulse Resp BP Pulse Ox 98 F 72 16 137/61 98 07/12/19 14:03 07/12/19 14:03 07/12/19 14:03 07/12/19 14:03 07/12/19 14:03 Medical Decision Making - Medical Decision Making 07/12/19 17:53 A/P: 84-year-old woman sent for evaluation of questionable left hip fracture CT of left hip Noncontrast CT of the head Right shoulder x-ray Left shoulder x-ray Reassess 07/12/19 20:22 CT of the left leg as read by Dr. Nicole: No CT evidence of a hip fracture. If there is ongoing focal concern in regards to the left hip additional evaluation using MRI may be performed (reported fracture sensitivity 100%). No soft tissue hematomas noted. There is no gross hip joint effusion. Periarticular soft tissues demonstrate no obvious noncontrast pathology. Note is made of a slight cortical buckling of the fifth sacral segment which may be on the basis of a prior fracture. Correlate clinically. CT of the head as read by Dr. Nicole: No CT evidence of acute intracranial pathology. There is been no definite interval change in comparison to a prior CT study of 09/14/2018. 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 X-ray of the right shoulder as read by me: No acute fractures or dislocations present. Arthritic changes are noted. X-ray of the left shoulder as read by me: No acute fractures or dislocations are present. Arthritic changes are present. Given radiologic findings I will discharge the patient back to [facility] for continued treatment. I will provide a copy of the CT report for the patient's chart at [facility]. 07/12/19 20:47 And her son darwin Ponce was called and case was discussed with nursing supervisor wool shearing Patience Palma. I discussed the physical exam findings, ancillary test results and final diagnoses with the patient. I answered all of the patient's questions. The patient was satisfied with the care received and felt comfortable with the discharge plan and treatment plan. The patient will call their primary care physician within 24 hours to arrange follow-up and will return to the Emergency Department with any new, persistent or worsening symptoms. Discharge - Discharge Information Problems reviewed: Yes Clinical Impression/Diagnosis: Left hip pain Condition: Stable Disposition: LONG-TERM FACILITY - Admission No - Follow up/Referral Referrals: Bashir Mendez MD [Primary Care Provider] - - Patient Discharge Instructions Additional Instructions: Continue all previous orders. CT scan showed no acute fracture in the left hip. Return to the emergency department for any new or worsening symptoms. - Post Discharge Activity
--- NOTE | 2019-07-12 19:46 | PDOC ---
*Physical Exam - Vital Signs Last Vital Signs Temp Pulse Resp BP Pulse Ox 98 F 72 16 137/61 98 07/12/19 14:03 07/12/19 14:03 07/12/19 14:03 07/12/19 14:03 07/12/19 14:03 Medical Decision Making - Medical Decision Making 07/12/19 19:44 84 yo F sent to the ER from [facility] due to questionable hip fracture S/p fall > 3 weeks ago Pt had been complaining of pain, send for an xray which showed possible fracture Pt seen by Midlevel Provider under my direct supervision Pt interviewed and examined Ancillary studies reviewed - No Ct evidence of hip fracture, cortical buckling of the 5th sacral segment ? prior fracture I agree with plan as outlined by Midlevel Provider 07/12/19 19:46 07/12/19 22:30 Discharge - Discharge Information Problems reviewed: Yes Clinical Impression/Diagnosis: Left hip pain Condition: Stable Disposition: [facility] - Admission No - Additional Discharge Information Prescription Drug Monitoring Program (I-STOP) results: I-STOP not reviewed - Follow up/Referral Referrals: Bashir Mendez MD [Primary Care Provider] - - Patient Discharge Instructions Additional Instructions: Continue all previous orders. CT scan showed no acute fracture in the left hip. Return to the emergency department for any new or worsening symptoms. - Post Discharge Activity
== END 2019-07-12 23:12 ==
LOC: JER 14:03
DX: M25.552 Pain in left hip (principal); W19.XXXA Unspecified fall, initial encounter; Y93.89 Activity, other specified; Y92.128 Other place in nursing home as the place of occurrence of the external cause; Y99.8 Other external cause status; I10 Essential (primary) hypertension; E11.9 Type 2 diabetes mellitus without complications; Z79.84 Long term (current) use of oral hypoglycemic drugs; Z89.511 Acquired absence of right leg below knee; Z90.49 Acquired absence of other specified parts of digestive tract; Z88.0 Allergy status to penicillin
CPT/HCPCS: 70450-TC; 73030-TC-LT-FY; 73030-TC-RT-FY; 73700-TC-RT; 99283-25

== ENCOUNTER → 2019-09-03 | Day surgery (SDC) | payer OTHER | END | disposition home or self-care (01) | LOC: JRADIR 09:18 | PROVIDERS: ATTEND Radiology Diagnostic Radiology | DX: K80.80 Other cholelithiasis without obstruction (principal) | CPT/HCPCS: 47536; C1729; 75984-TC-RT-FY; 76000-TC-FY; A4358; C1769 ==

== ENCOUNTER 2019-11-20 05:32 | Inpatient (IN) | payer OTHER ==
--- NOTE | 2019-11-20 05:50 | PDOC ---
History of Present Illness - General Chief Complaint: Bleeding from Anus Stated Complaint: RECTAL BLEED Time Seen by Provider: 11/20/19 05:50 - History of Present Illness Initial Comments: HPI: 84yo F with PMH of HTN, HLD, DM, R. BKA, cholelithiasis, depression sent by [facility] [place] for evaluation of rectal bleed. Denies history of GI bleed. Does not know what medicines she is on. Patient states that since yesterday she has had black stools as well as one bright red stool. She feels weak and dizzy. No nausea or vomiting. Patient reports abdominal pain, chest pain, and head pain that is at its baseline. Believes she has had a colonscopy in the past with unknown results. No fevers, but she feels cold. ROS: Constitutional: no fever, +chills HEENT: no throat pain, no dysphagia Cardiovascular: no chest pain, no palpitations Respiratory: no cough, no shortness of breath Gastrointestinal: +hematochezia, +melena Genitourinary: no dysuria, no hematuria Musculoskeletal: no myalgia, no arthralgia Skin: no rash, no itching Neurologic: no headache, +weakness Psych: no agitation, no anxiety PE: General: Awake, alert, and fully oriented, in no acute distress Head: No signs of trauma Eyes: EOMI, sclera anicteric ENT: Moist mucus membranes Neck: Normal ROM, supple Lungs: Lungs clear, Normal breath sounds Cardio: Regular rhythm, S1 and S2 present Abdomen: Soft, mild tenderness to palpation in lower abdomen, biliary drain in place Extremities: Normal range of motion, Distal pulses present SKIN: Warm, Dry, normal turgor Neurologic: Cranial nerves II through XII grossly intact. Normal speech Rectal: The skin is without erythema or induration. No external hemorrhoids, fissures, skin tags, warts, or discharge. Sphincter tone normal. There are no masses palpated on digital exam. Sample appears bloody and melanotic ED Course/MDM: DDX including but not limited to GI bleed, upper vs lower, diverticulitis, ACS Labs, EKG, CXR CTAP 11/20/19 05:50 Patient signed out to Dr. Ferraro and day team 11/20/19 07:26 Past History - Past Medical History Allergies/Adverse Reactions: Allergies Allergy/AdvReac Type Severity Reaction Status Date / Time Penicillins Allergy Unknown Verified 11/20/19 14:39 Home Medications: Ambulatory Orders Acetaminophen 500 mg PO PRN 07/12/19 Amlodipine Besylate [Norvasc -] 10 mg PO DAILY 07/12/19 Aspirin 81 mg PO DAILY 07/12/19 Atorvastatin Ca [Lipitor] 40 mg PO HS 07/12/19 Ferrous Sulfate 325 mg PO DAILY 07/12/19 Hydrochlorothiazide 50 mg PO DAILY 07/12/19 Insulin (LOG) Aspart [NovoLOG -] See Protocol SQ BID 07/12/19 Insulin Detemir [Levemir Flextouch] 12 unit SQ HS 07/12/19 Losartan Potassium [Cozaar] 100 mg PO DAILY 07/12/19 Multivitamins [Tab-A-Vit -] 1 tab PO DAILY 07/12/19 metFORMIN HCL [Metformin HCl] 500 mg PO DAILY 07/12/19 Duloxetine HCl 40 mg PO DAILY 11/20/19 Gabapentin 100 mg PO TID 11/20/19 Meloxicam 15 mg PO DAILY 11/20/19 Anemia: No Asthma: No Cancer: No Cardiac Disorders: No CVA: No COPD: No CHF: No Dementia: No Diabetes: Yes GI Disorders: No Disorders: No HTN: Yes Hypercholesterolemia: Yes Liver Disease: No Seizures: No Thyroid Disease: No - Surgical History Abdominal Surgery: No Appendectomy: No Cardiac Surgery: No Cholecystectomy: No Lung Surgery: No Neurologic Surgery: No Orthopedic Surgery: Yes (RIGHT BELOW KNEE AMPUTATION) - Psycho Social/Smoking Cessation Hx Smoking History: Never smoked Have you smoked in the past 12 months: No Hx Alcohol Use: No Drug/Substance Use Hx: No Substance Use Type: None Hx Substance Use Treatment: No ED Treatment Course - LABORATORY CBC & Chemistry Diagram: 11/20/19 12:18 11/20/19 06:16 Discharge - Discharge Information Problems reviewed: Yes Clinical Impression/Diagnosis: GI bleed Qualifiers: GI bleed type/associated pathology: unspecified gastrointestinal hemorrhage type Qualified Code(s): K92.2 - Gastrointestinal hemorrhage, unspecified - Follow up/Referral - Patient Discharge Instructions - Post Discharge Activity
--- NOTE | 2019-11-20 05:53 | PDOC ---
Attending Attestation - Resident Resident Name: Kevan Desaith - ED Attending Attestation I have performed the following: I have examined & evaluated the patient, The case was reviewed & discussed with the resident, I agree w/resident's findings & plan - HPI HPI: 11/23/19 16:50 see resident hpi - Physicial Exam PE: 11/23/19 16:50 see resident exam - Medical Decision Making 11/23/19 16:50 84-year-old female for evaluation of rectal bleed Case signed out to dayshift pending results and disposition
[2019-11-20 07:17] LABS: BASO % 0.1 % (0-2.0); EOS % 0.7 % (0-4.5); HEMATOCRIT 26.6 % (32.4-45.2); HEMOGLOBIN 8.8 GM/dL (10.7-15.3); MCH 28.8 pg (25.7-33.7); MEAN CELL VOLUME 87.3 fl (80-96); MEAN PLT VOLUME 8.4 fl (7.5-11.1); MONO % 11.1 % (3.8-10.2); NEUT % 71.1 % (42.8-82.8); PLATELET COUNT 201 K/MM3 (134-434); RBC 3.05 M/mm3 (3.60-5.2); WHITE BLOOD COUNT 7.6 K/mm3 (4.0-10.0)
[2019-11-20 07:35] LABS: INR 1.13 (0.83-1.09); PROTHROMBIN TIME (PATIENT) 13.3 SEC (9.7-13.0)
[2019-11-20 07:37] LABS: ACTIVATED PTT 29.5 SECONDS (25.2-36.5)
[2019-11-20 07:52] LABS: ALBUMIN 2.8 g/dl (3.4-5.0); ALK PHOS 61 U/L (45-117); ANION GAP 6 MMOL/L (8-16); BILIRUBIN,TOTAL 0.2 mg/dL (0.2-1); BLOOD UREA NITROGEN 52.4 mg/dL (7-18); CALCIUM 8.4 mg/dL (8.5-10.1); CHLORIDE 108 mmol/L (98-107); CO2 27 mmol/L (21-32); CREATININE 1.6 mg/dL (0.55-1.3); GLUCOSE,RANDOM 158 mg/dL (74-106); POTASSIUM 4.9 mmol/L (3.5-5.1); SGOT/AST 36 U/L (15-37); SGPT/ALT 46 U/L (13-61); SODIUM 141 mmol/L (136-145); TOT PROT 6.2 g/dl (6.4-8.2)
--- NOTE | 2019-11-20 08:21 | PDOC ---
*Physical Exam - Vital Signs Last Vital Signs Temp Pulse Resp BP Pulse Ox 98.3 F 82 18 101/59 L 95 11/20/19 05:40 11/20/19 05:40 11/20/19 05:40 11/20/19 05:40 11/20/19 05:40 ED Treatment Course - LABORATORY CBC & Chemistry Diagram: 11/20/19 06:40 11/20/19 06:16 - ADDITIONAL ORDERS Additional order review: Laboratory Results 11/20/19 11/20/19 11/20/19 06:40 06:17 06:16 PT with INR 13.30 H INR 1.13 H PTT (Actin FS) 29.5 Sodium 141 Potassium 4.9 Chloride 108 H Carbon Dioxide 27 Anion Gap 6 L BUN 52.4 H Creatinine 1.6 H Est GFR (CKD-EPI)AfAm 34.42 Est GFR (CKD-EPI)NonAf 29.70 Random Glucose 158 H Calcium 8.4 L Total Bilirubin 0.2 AST 36 ALT 46 Alkaline Phosphatase 61 Creatine Kinase 50 Troponin I < 0.02 Total Protein 6.2 L Albumin 2.8 L Stool Occult Blood Positive 11/20/19 06:40 RBC 3.05 L MCV 87.3 MCHC 33.0 RDW 14.0 D MPV 8.4 Neutrophils % 71.1 Lymphocytes % 17.0 Monocytes % 11.1 H Eosinophils % 0.7 Basophils % 0.1 Medical Decision Making - Medical Decision Making 11/20/19 08:21 Hemodynamically stable with 2 episodes of melena mild lightheadedness and dizziness Slight drop in hemoglobin from 10-8.8 given age and comorbidities will admit to hospital for GI consultation serial blood work and further management. Discharge - Discharge Information Problems reviewed: Yes Clinical Impression/Diagnosis: GI bleed Qualifiers: GI bleed type/associated pathology: unspecified gastrointestinal hemorrhage type Qualified Code(s): K92.2 - Gastrointestinal hemorrhage, unspecified - Admission Yes - Follow up/Referral Referrals: Bashir Mendez MD [Primary Care Provider] - - Patient Discharge Instructions - Post Discharge Activity
[2019-11-20] MEDS ORDERED: SODIUM CHLORIDE 1,000 ML IV SCH (09:00)
--- NOTE | 2019-11-20 09:18 | HP ---
CHIEF COMPLAINT:rectal bleed PCP:Dr. Mendez HISTORY OF PRESENT ILLNESS: Patient is an 84 year old female with past medical history HTN, HLD, DM, Right BKA, was brought in from [facility] due to 3 episodes of rectal bleed. Patient initially reported melena that started last night about 10pm, described as black stool about 1 cup. This was accompanied by diffuse abdominal pain, no nausea or vomiting. A few hours after, she again had another episode of loose bowel movement now accompanied by bright red blood. She had her 3rd episode of passing dark stool with bright red blood, and was subsequently brought to the ED. Patient reports weakness and diffuse abdominal pain, but denies any fevers, chills, headache, dizziness, chest pain, SOB, nausea, vomiting, urinary symptoms , denies loss of appetite or weight loss. Patient unaware of her medications, but her med list includes meloxicam and aspirin. She also reports having colonoscopy done >20 years ago for a GI bleed as well. ER course was notable for: (1)H/H 8.8/26.6, BUN/Cr 52.4/1.6 (2) (3) Recent Travel:denies PAST MEDICAL HISTORY: HTN HLD DM PAST SURGICAL HISTORY: Right BKA tubal ligation surgery Social History: Smoking:denies Alcohol:denies Drugs: denies Allergies Penicillins Allergy (Verified 07/12/19 15:37) HOME MEDICATIONS: Home Medications Medication Instructions Recorded Acetaminophen 500 mg PO PRN 07/12/19 Amlodipine Besylate [Norvasc -] 10 mg PO DAILY 07/12/19 Aspirin 81 mg PO DAILY 07/12/19 Atorvastatin Ca [Lipitor] 40 mg PO HS 07/12/19 Ferrous Sulfate 325 mg PO DAILY 07/12/19 Hydrochlorothiazide 50 mg PO DAILY 07/12/19 Insulin (LOG) Aspart [NovoLOG -] See Protocol SQ BID 07/12/19 Insulin Detemir [Levemir Flextouch] 12 unit SQ HS 07/12/19 Losartan Potassium [Cozaar] 100 mg PO DAILY 07/12/19 Multivitamins [Tab-A-Vit -] 1 tab PO DAILY 07/12/19 metFORMIN HCL [Metformin HCl] 500 mg PO DAILY 07/12/19 Duloxetine HCl 20 mg PO DAILY 11/20/19 Gabapentin 100 mg PO TID 11/20/19 Meloxicam 15 mg PO DAILY 11/20/19 REVIEW OF SYSTEMS CONSTITUTIONAL: Absent: fever, chills, diaphoresis, generalized weakness, malaise, loss of appetite, weight change HEENT: Absent: rhinorrhea, nasal congestion, throat pain, throat swelling, difficulty swallowing, mouth swelling, ear pain, eye pain, visual changes CARDIOVASCULAR: Absent: chest pain, syncope, palpitations, irregular heart rate, lightheadedness , peripheral edema RESPIRATORY: Absent: cough, shortness of breath, dyspnea with exertion, orthopnea, wheezing, stridor, hemoptysis GASTROINTESTINAL:abdominal pain,melena, hematochezia Absent: abdominal distension, nausea, vomiting, diarrhea, constipation, GENITOURINARY: Absent: dysuria, frequency, urgency, hesitancy, hematuria, flank pain, genital pain MUSCULOSKELETAL: Absent: myalgia, arthralgia, joint swelling, back pain, neck pain SKIN: Absent: rash, itching, pallor HEMATOLOGIC/IMMUNOLOGIC: Absent: easy bleeding, easy bruising, lymphadenopathy, frequent infections ENDOCRINE: Absent: unexplained weight gain, unexplained weight loss, heat intolerance, cold intolerance NEUROLOGIC: Absent: headache, focal weakness or paresthesias, dizziness, unsteady gait, seizure, mental status changes, bladder or bowel incontinence PSYCHIATRIC: Absent: anxiety, depression, suicidal or homicidal ideation, hallucinations. PHYSICAL EXAMINATION Vital Signs - 24 hr 11/20/19 11/20/19 11/20/19 05:40 08:22 08:35 Temperature 98.3 F Pulse Rate 82 Pulse Rate [ 77 Left Radial] Respiratory 18 20 Rate Blood Pressure 101/59 L Blood Pressure 129/61 [Right Arm] O2 Sat by Pulse 95 98 98 Oximetry (%) GENERAL: Awake, alert, and fully oriented, in no acute distress. HEAD: Normal with no signs of trauma. EYES: PERRLA, EOMI, sclera anicteric, pale palpebral conjunctivae. EARS, NOSE, THROAT: Dry, pale mucous membranes. NECK: Normal range of motion, supple. LUNGS: Breath sounds equal, clear to auscultation bilaterally. HEART: Regular rate and rhythm, normal S1 and S2 without murmur, rub or gallop. ABDOMEN: Soft, +diffuse tenderness, worse on RLQ/LLQ, not distended, normoactive bowel sounds. STEPHANIE: No external hemorrhoids, no fissure or skin tags. Normal sphincter tone. No masses palpated. No blood noted on examining finger. LOWER EXTREMITIES: 2+ pulses, warm, well-perfused. No peripheral edema. Right BKA NEUROLOGICAL: Cranial nerves II-XII intact. Normal speech. PSYCHIATRIC: Cooperative. Good eye contact. Appropriate mood and affect. SKIN: Warm, dry, normal turgor. Laboratory Results - last 24 hr 11/20/19 11/20/19 11/20/19 06:16 06:17 06:40 WBC RBC Hgb Hct MCV MCH MCHC RDW Plt Count MPV Absolute Neuts (auto) Neutrophils % Lymphocytes % Monocytes % Eosinophils % Basophils % Nucleated RBC % PT with INR 13.30 H INR 1.13 H PTT (Actin FS) 29.5 Sodium 141 Potassium 4.9 Chloride 108 H Carbon Dioxide 27 Anion Gap 6 L BUN 52.4 H Creatinine 1.6 H Est GFR (CKD-EPI)AfAm 34.42 Est GFR (CKD-EPI)NonAf 29.70 Random Glucose 158 H Calcium 8.4 L Total Bilirubin 0.2 AST 36 ALT 46 Alkaline Phosphatase 61 Creatine Kinase 50 Troponin I < 0.02 Total Protein 6.2 L Albumin 2.8 L Stool Occult Blood Positive Blood Type Antibody Screen 11/20/19 11/20/19 06:40 06:40 WBC 7.6 RBC 3.05 L Hgb 8.8 L Hct 26.6 L MCV 87.3 MCH 28.8 MCHC 33.0 RDW 14.0 D Plt Count 201 D MPV 8.4 Absolute Neuts (auto) 5.4 Neutrophils % 71.1 Lymphocytes % 17.0 Monocytes % 11.1 H Eosinophils % 0.7 Basophils % 0.1 Nucleated RBC % 0 PT with INR INR PTT (Actin FS) Sodium Potassium Chloride Carbon Dioxide Anion Gap BUN Creatinine Est GFR (CKD-EPI)AfAm Est GFR (CKD-EPI)NonAf Random Glucose Calcium Total Bilirubin AST ALT Alkaline Phosphatase Creatine Kinase Troponin I Total Protein Albumin Stool Occult Blood Blood Type A POSITIVE Antibody Screen Negative ASSESSMENT/PLAN: Patient is an 84 year old female with past medical history HTN, HLD, DM, Right BKA, cholelithiasis, was brought in from [facility] due to 3 episodes of rectal bleed. #GI bleed -likely LGIB, would r/o UGIB, with chronic use of ASA and NSAIDs -Monitor CBC q6h -IV Protonix -IVF -Transfuse prn to keep Hgb >7 -CT abdomen and pelvis -GI (Dr. Betancourt) consulted. #Abdominal pain -CT abdomen and pelvis - s/p percutaneous cholecystostomy with decompression of the gallbladder 11/07/18. Extensive left-sided diverticulosis with probably mild acute diverticulitis at the descending/sigmoid colon junction. 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 -will hold off blood pressure medications in light of GI bleed -will resume BP meds as hemodynamics permit -on Losartan 100mg, HCTZ 50mg, Norvasc 10mg #HLD -Continue home Lipitor #DM -On Insulin Levemir 12u HS -Insulin sliding scale implemented -BGM ACHS #FEN -IV NS @75cc/hr -Electrolytes wnl, routine bmp monitoring -NPO #Prophylaxis -SCDs, avoid chemical ppx in setting of GI bleed #Disposition -admit to med surg Visit type - Emergency Visit Emergency Visit: Yes ED Registration Date: 11/20/19 Care time: The patient presented to the Emergency Department on the above date and was hospitalized for further evaluation of their emergent condition. - New Patient This patient is new to me today: Yes Date on this admission: 11/20/19 - Critical Care Critical Care patient: No ATTENDING PHYSICIAN STATEMENT I saw and evaluated the patient. I reviewed the resident's note and discussed the case with the resident. I agree with the resident's findings and plan as documented. SUBJECTIVE: OBJECTIVE: ASSESSMENT AND PLAN:
[2019-11-20] MEDS ORDERED: PANTOPRAZOLE SODIUM 40 MG VIAL IVPUSH SCH (10:00)
[2019-11-20] MEDS ORDERED: PANTOPRAZOLE SODIUM 40 MG VIAL ONE (10:43)
--- NOTE | 2019-11-20 11:10 | EKG ---
Test Reason : Blood Pressure : / mmHG Vent. Rate : 075 BPM Atrial Rate : 075 BPM P-R Int : 238 ms QRS Dur : 080 ms QT Int : 392 ms P-R-T Axes : 056 011 066 degrees QTc Int : 437 ms SINUS RHYTHM WITH 1ST DEGREE A-V BLOCK SEPTAL INFARCT (CITED ON OR BEFORE 14-SEP-2018) ABNORMAL ECG WHEN COMPARED WITH ECG OF 07-NOV-2018 15:49, QUESTIONABLE CHANGE IN INITIAL FORCES OF SEPTAL LEADS Confirmed by MD ADDY, JORDIN ([id number]) on 11/20/2019 11:09:45 AM Referred By: Confirmed By:JORDIN DALY MD
[2019-11-20] MEDS: INSULIN SLIDING SCALE (NOVOLOG) 1 VIAL SQ SCH ×3 (11:17→22:00)
--- NOTE | 2019-11-20 11:26 | PN ---
Teaching Attending Note Name of Resident: Keyla Sands ATTENDING PHYSICIAN STATEMENT I saw and evaluated the patient. I reviewed the resident's note and discussed the case with the resident. I agree with the resident's findings and plan as documented. Seen and examined; please see resident note for further historical information. I personally verified all mitchell historical information and exam findings. Personally interpreted all imaging and diagnostics and reviewed appropriate consults. I reviewed all labs and vital signs as per resident note and EMR as documented. I agree with the above assessment and plan unless supplemented by myself in the following. Seen today the emergency room. I agree with resident assessment and plan as documented aside from as supplemented by me. Agree with the subjective, objective, historical information pertaining to the family medical and social as well as surgical histories. She presents with 1 day of GI bleeding with an initial episode of melena preceded by bright red blood per rectum, found to have diverticulitis on CT scan. On ceftriaxone and metronidazole, pending GI consultation. Given the initial melena we will go ahead and continue IV PPI and keep her n.p.o. in case EGD is implicated as treatment/diagnostic modality 10 item review of systems completed and is negative aside from as discussed in the subjective data in my own/the resident documentation. VS, labs, imaging reviewed NAD, AAO, resting comfortably in bed. RRR s1/2 no mgr Normal muscle tone, moves all 5 extremities with normal apparent strength Neck is supple, trachea midline, no aleena LN Lungs CTAB with sym expansion Mild tenderness, ND +BS no aleena organomegaly CN2-12 wnl; no FND NC AT EOMI PERRLA Normal mood, appropriate behavior, euthymic affect No skin breakdown or rashes noted CT scan endorses the presence of diverticulosis with likely mild diverticulitis EKG reviewed Prior echocardiogram, nuclear stress test reviewed. Likely impaired relaxation with potential diastolic dysfunction, RVSP slightly elevated at 30 to 40 mmHg. No aleena reversible ischemia on the 2018 stress test. Pending gastroenterology consult Assessment and plan: Patient is an 84-year-old female with a past medical history as documentedPresenting with GI bleed found to have diverticulitis. She did have an initial episode of melena so we will talk with GI regarding the need for inpatient scope. Likely source of bleed for the bright red blood per rectum however is likely the diverticulosis/-itis. She will be kept on antibiotics for the uncomplicated presentation, we will obtain old records regarding her prior endoscopies, and if review of her history shows that this is a recurring issue we will consult general surgery nonurgently. She will require endoscopy with colonoscopy regardless that this may be able to be done as an outpatient will defer to gastroenterology. Slight acute kidney injury likely secondary to prerenal process will hydrate empirically with 75 cc of normal saline and recheck in the morning, deseeding IV fluids with improvement of creatinine as well as when she is able to tolerate oral. Her pain is currently controlled and she does not require IV narcotics or pain medication but should she we could do one-time dose of morphine. 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 As per 2018 echocardiogram Full code
[2019-11-20] MEDS ORDERED: ACETAMINOPHEN 1000 MG/100 ML VIAL (NON FORMULARY) IVPB PRN (11:36)
[2019-11-20 12:40] LABS: BASO % 0.2 % (0-2.0); EOS % 1.1 % (0-4.5); HEMATOCRIT 25.1 % (32.4-45.2); HEMOGLOBIN 8.1 GM/dL (10.7-15.3); LYMPH % 21.8 % (8-40); MCH 28.4 pg (25.7-33.7); MCHC 32.4 g/dl (32.0-36.0); MEAN CELL VOLUME 87.6 fl (80-96); MEAN PLT VOLUME 8.4 fl (7.5-11.1); MONO % 11.4 % (3.8-10.2); NEUT % 65.5 % (42.8-82.8); PLATELET COUNT 193 K/MM3 (134-434); RBC 2.87 M/mm3 (3.60-5.2); RDW 14.2 % (11.6-15.6); WHITE BLOOD COUNT 7.7 K/mm3 (4.0-10.0)
[2019-11-20] MEDS ORDERED: CEFTRIAXONE 1 GM/50 ML BAG ONE (15:21)
[2019-11-20 15:52] LABS: EPI CELLS 3.6 /HPF (0-5/HPF); HYALINE CASTS 5 /lpf (0-8); URINE APPEARANCE CLEAR; URINE BACTERIA 611.2 /hpf (NEGATIVE); URINE BILIRUBIN NEGATIVE (NEGATIVE); URINE COLOR YELLOW; URINE GLUCOSE (UA) NEGATIVE (NEGATIVE); URINE KETONE NEGATIVE (NEGATIVE); URINE LEUK ESTERASE 1+ (NEGATIVE); URINE NITRITE NEGATIVE (NEGATIVE); URINE PROTEIN NEGATIVE (NEGATIVE); URINE UROBILINOGEN 0.2 mg/dL (0.2-1.0); URINE WBC 7 /hpf (0-5)
[2019-11-20] MEDS: CEFTRIAXONE 1,000 MG in DEXTROSE 5%-WATER - 50 ML IVPB SCH (16:30)
--- NOTE | 2019-11-20 16:59 | CON.GI ---
Consult Consult Specialty:: Gastroenterology Referred by:: Dr. Lang Reason for Consultation:: GI bleed - History of Present Illness Chief Complaint: Rectal bleeding History of Present Illness: 84yo female h/o DM, Right BKA, cholecyst[facility]. Pt reports worsening lower abdominal pain over the past few weeks, mostly LLQ, then developing upper abdominal pain over the past few days. States she had episode of black stools yesterday followed by bright blood. Had subsequent episode this am prompting ED evaluation. No further episodes reported in ED. Denies nausea/vomiting or fever/chills. Takes asa and meloxicam per medication list. Reports regular formed bm prior to episode of bleeding yesterday. Reports prior remote EGD and colonoscopy, pt unclear of details. CT abd/pelvis revealing C tube in place, and left sided diverticulosis with possible mild acute diverticulitis at descending and sigmoid colon. - History Source History Provided By: Patient - Past Medical History Cardio/Vascular: Yes: HTN Gastrointestinal: Yes: GERD Endocrine: Yes: Diabetes Mellitus - Past Surgical History Past Surgical History: Yes: - Alcohol/Substance Use Hx Alcohol Use: No - Smoking History Smoking history: Never smoked Have you smoked in the past 12 months: No - Social History Usual Living Arrangement: [facility] Home Medications - Allergies Allergies/Adverse Reactions: Allergies Allergy/AdvReac Type Severity Reaction Status Date / Time Penicillins Allergy Unknown Verified 11/20/19 14:39 - Home Medications Home Medications: Ambulatory Orders Acetaminophen 500 mg PO PRN 07/12/19 Amlodipine Besylate [Norvasc -] 10 mg PO DAILY 07/12/19 Aspirin 81 mg PO DAILY 07/12/19 Atorvastatin Ca [Lipitor] 40 mg PO HS 07/12/19 Ferrous Sulfate 325 mg PO DAILY 07/12/19 Hydrochlorothiazide 50 mg PO DAILY 07/12/19 Insulin (LOG) Aspart [NovoLOG -] See Protocol SQ BID 07/12/19 Insulin Detemir [Levemir Flextouch] 12 unit SQ HS 07/12/19 Losartan Potassium [Cozaar] 100 mg PO DAILY 07/12/19 Multivitamins [Tab-A-Vit -] 1 tab PO DAILY 07/12/19 metFORMIN HCL [Metformin HCl] 500 mg PO DAILY 07/12/19 Duloxetine HCl 40 mg PO DAILY 11/20/19 Gabapentin 100 mg PO TID 11/20/19 Meloxicam 15 mg PO DAILY 11/20/19 Review of Systems - Review of Systems Constitutional: reports: No Symptoms Cardiovascular: reports: No Symptoms Respiratory: reports: No Symptoms Gastrointestinal: reports: Abdominal Pain, Rectal Bleeding Physical Exam-GI Vital Signs: Vital Signs Temperature 98.3 F 11/20/19 15:30 Pulse Rate 72 11/20/19 15:30 Respiratory Rate 18 11/20/19 15:30 Blood Pressure 113/61 11/20/19 15:30 O2 Sat by Pulse Oximetry (%) 97 11/20/19 15:30 Constitutional: Yes: Well Nourished, No Distress, Calm Cardiovascular: Yes: WNL, Regular Rate and Rhythm Respiratory: Yes: WNL, Regular, CTA Bilaterally ...Palpate: Yes: Other (Abd soft tender on palpation in RLQ, no rebound, guarding or rigidity, tender also in epigastrium on palpation Rectal exam: scant dark stool with specks of bright blood) Extremities: Yes: Other (s/p R BKA) Labs: CBC, BMP 11/20/19 12:18 11/20/19 06:16 INR, PTT INR 1.13 (0.83-1.09) H 11/20/19 06:40 Imaging - Results Cat Scan: Report Reviewed, Image Reviewed Problem List - Problems (1) GI bleed Assessment/Plan: 84yo female h/o DM, Right BKA, cholecystostomy tube (11/2018) [facility] from [facility] with melanotic stools also with bright blood with associated abdominal pain. Hemodynamically stable currently. Given reported melena and NSAID use would need to exclude underlying UGI bleeding source including esophagitis, gastritis, PUD or avms. -Continue to closely monitor Hb and for further evidence of bleeding -NPO for now -PPI BID -Plan for EGD tomorrow to further evaluate. Discussed risks/benefits with patient and she is agreeable to proceed. -Avoid nonessential NSAIDs Code(s): K92.2 - GASTROINTESTINAL HEMORRHAGE, UNSPECIFIED Qualifiers: GI bleed type/associated pathology: unspecified gastrointestinal hemorrhage type Qualified Code(s): K92.2 - Gastrointestinal hemorrhage, unspecified (2) Diverticulitis Assessment/Plan: LLQ tenderness with CT revealing possible mild left sided diverticulitis. -Continue IV antibiotics -Pt would require colonoscopy once further clinically improved in 6-8 weeks pending clinical course -Will plan to evaluate bleeding with EGD initially as noted above however if further bleeding with hemodynamic instability recommend CTA and possible IR consult Code(s): K57.92 - DVTRCLI OF INTEST, PART UNSP, W/O PERF OR ABSCESS W/O BLEED
[2019-11-20 17:19] LABS: URINE RBC 8.7 /hpf (0-4)
[2019-11-20 19:28] LABS: BASO % 0.1 % (0-2.0); EOS % 1.7 % (0-4.5); HEMATOCRIT 25.3 % (32.4-45.2); HEMOGLOBIN 8.3 GM/dL (10.7-15.3); MCH 28.7 pg (25.7-33.7); MCHC 32.6 g/dl (32.0-36.0); MEAN PLT VOLUME 8.7 fl (7.5-11.1); MONO % 11.9 % (3.8-10.2); NEUT % 60.3 % (42.8-82.8); PLATELET COUNT 201 K/MM3 (134-434); RBC 2.88 M/mm3 (3.60-5.2); RDW 14.4 % (11.6-15.6); WHITE BLOOD COUNT 8.3 K/mm3 (4.0-10.0)
[2019-11-20] MEDS ORDERED: PANTOPRAZOLE SODIUM 40 MG/100 ML BAG IVPB ONE (21:57)
[2019-11-20] MEDS: PANTOPRAZOLE SODIUM 40 MG VIAL IVPUSH SCH (22:01)
[2019-11-21 01:10] VITALS: BMI 22.6
--- NOTE | 2019-11-21 02:54 | PN ---
Progress Note (short form) - Note Progress Note: Alerted by nursing staff patient had 1 episode brbpr. Unable to quantify amount but no blood clots noted. BP 110s/70s. Patient having mild lightheadedness. Will f/u with repeat BP, monitor for further bleeding. Patient has CBC ordered for AM and is NPO for EGD today. Will sign out to day team
[2019-11-21] MEDS: INSULIN SLIDING SCALE (NOVOLOG) 1 VIAL SQ SCH ×4 (06:22→21:29)
[2019-11-21 07:34] LABS: BASO % 0.2 % (0-2.0); EOS % 2.1 % (0-4.5); HEMATOCRIT 21.4 % (32.4-45.2); HEMOGLOBIN 7.1 GM/dL (10.7-15.3); MCH 28.7 pg (25.7-33.7); MCHC 33.2 g/dl (32.0-36.0); MEAN CELL VOLUME 86.6 fl (80-96); MEAN PLT VOLUME 8.3 fl (7.5-11.1); MONO % 13.8 % (3.8-10.2); NEUT % 55.9 % (42.8-82.8); PLATELET COUNT 191 K/MM3 (134-434); RBC 2.47 M/mm3 (3.60-5.2); RDW 14.1 % (11.6-15.6); WHITE BLOOD COUNT 5.1 K/mm3 (4.0-10.0)
[2019-11-21 08:27] LABS: ALBUMIN 2.6 g/dl (3.4-5.0); BILIRUBIN,TOTAL 0.4 mg/dL (0.2-1); BLOOD UREA NITROGEN 43.6 mg/dL (7-18); CALCIUM 8.2 mg/dL (8.5-10.1); POTASSIUM 4.4 mmol/L (3.5-5.1); TOT PROT 5.9 g/dl (6.4-8.2)
[2019-11-21] MEDS ORDERED: SODIUM CHLORIDE 1,000 ML IV SCH (08:44)
[2019-11-21] MEDS ORDERED: PANTOPRAZOLE SODIUM 40 MG VIAL IVPUSH SCH (10:00)
[2019-11-21] MEDS: PANTOPRAZOLE SODIUM 40 MG VIAL IVPUSH SCH (10:13)
[2019-11-21] MEDS ORDERED: CEFTRIAXONE 1 GM in DEXTROSE 5%-WATER - 50 ML IVPB SCH (10:45)
[2019-11-21] MEDS ORDERED: cefTRIAXone SODIUM 1 GM VIAL ONE (11:04)
[2019-11-21] MEDS ORDERED: DEXTROSE 5%-WATER - 50 ML IVPB ONE (11:05)
[2019-11-21] MEDS: CEFTRIAXONE 1,000 MG in DEXTROSE 5%-WATER - 50 ML IVPB SCH (11:15)
--- NOTE | 2019-11-21 11:55 | PN ---
Teaching Attending Note Name of Resident: Greyson Pope ATTENDING PHYSICIAN STATEMENT I saw and evaluated the patient. I reviewed the resident's note and discussed the case with the resident. I agree with the resident's findings and plan as documented. Seen and examined; please see resident note for further historical information. I personally verified all mitchell historical information and exam findings. Personally interpreted all imaging and diagnostics and reviewed appropriate consults. I reviewed all labs and vital signs as per resident note and EMR as documented. I agree with the above assessment and plan unless supplemented by myself in the following. No bleeding evident overnight, the patient has no new complaints. 10 item review of systems completed and is negative aside from as discussed in the subjective data in my own/the resident documentation. VS, labs, imaging reviewed NAD, AAO, resting comfortably in bed. RRR s1/2 no mgr Normal muscle tone, moves all 5 extremities with normal apparent strength Neck is supple, trachea midline, no aleena LN Lungs CTAB with sym expansion NT ND +BS no aleena organomegaly CN2-12 wnl; no FND NC AT EOMI PERRLA Normal mood, appropriate behavior, euthymic affect No skin breakdown or rashes noted EKG reviewed Echocardiogram pending Assessment and plan: Patient is an 84-year-old female with a past medical history as documentedPresenting with GI bleed found to have diverticulitis. She did have an initial episode of melena so we will talk with GI regarding the need for inpatient scope. Likely source of bleed for the bright red blood per rectum however is likely the diverticulosis/-itis. She will be kept on antibiotics for the uncomplicated presentation, we will obtain old records regarding her prior endoscopies, and if review of her history shows that this is a recurring issue we will consult general surgery nonurgently. She will require endoscopy with colonoscopy regardless that this may be able to be done as an outpatient will defer to gastroenterology. Slight acute kidney injury likely secondary to prerenal process will hydrate empirically with 75 cc of normal saline and recheck in the morning, deseeding IV fluids with improvement of creatinine as well as when she is able to tolerate oral. Her pain is currently controlled and she does not require IV narcotics or pain medication but should she we could do one-time dose of morphine. Her penicillin allergy is unclear and she states that she was told when she was a kid that she was allergic to penicillins , we will give ceftriaxone and monitor for reaction but doubt true allergy Patient is status post EGD, seen in recovery. Patient is noted to have not up- to-date colonoscopy so they will be kept per GI recommendation for an additional day to do a colonoscopy. Will review full report with resident team. No bleeding noted, denied abdominal pain. Hemodynamically stable. Hemoglobin went down to the low sevens but did get fluid and was found to be stable on recheck this afternoon continuing on antibiotics for diverticulitis, no allergic reaction noted, likely on true penicillin allergy, continue IV hydration as n.p.o. for scope in the morning, continue prep, fluid status is within normal limits given the elevated RVSP in the likely diastolic CHF evidenced on 2018 echocardiogram, continue monitor clinical examination. Problems include: Abdominal Pain, Likely secondary to acute diverticulitis, uncomplicated ELVIE GIB; Likely due to the underlying diverticulitis but given the initial melena may be insurance claims representative of a potential upper GI bleed especially with her history regarding NSAID use, we will go ahead and discuss need for potential EGD with gastroenterology and continue on IV PPI until instructed otherwise Peripheral arterial disease status post BKA History of hypertension History of hyperlipidemia History of coronary artery disease History of diabetes Elevated RVSP, likely underlying pulmonary hypertension History of likely diastolic CHF, monitor fluid status carefully. As per 2018 echocardiogram
--- NOTE | 2019-11-21 12:21 | PN ---
Physical Exam: SUBJECTIVE: Patient seen and examined at bedside. C/o headache. Night team stating 1 episode of brbpr and rpt cbc showing no worsening of Hgb. Spoke with patients daughter. OBJECTIVE: Vital Signs Period Temp Pulse Resp BP Sys/Reyes Pulse Ox Last 24 Hr 98.3 F-99.3 F 72-97 18-18 113-150/53-70 97-100 GENERAL: The patient is awake, alert, and fully oriented, in no acute distress. LUNGS: Breath sounds equal, clear to auscultation bilaterally, no wheezes, no crackles, no accessory muscle use. HEART: Regular rate and rhythm, S1, S2 without murmur, rub or gallop. ABDOMEN: Soft, +diffuse tenderness, worse on RLQ/LLQ, not distended, normoactive bowel sounds rebound, no hepatosplenomegaly, no masses. EXTREMITIES: 2+ pulses, warm, well-perfused, no edema, Rt leg amputation NEUROLOGICAL: Cranial nerves II through XII grossly intact. Normal speech, gait not observed. SKIN: Warm, dry, normal turgor, no rashes or lesions noted Laboratory Results - last 24 hr 11/20/19 11/20/19 11/20/19 12:18 15:20 15:20 WBC 7.7 RBC 2.87 L Hgb 8.1 L Hct 25.1 L MCV 87.6 MCH 28.4 MCHC 32.4 RDW 14.2 Plt Count 193 MPV 8.4 Absolute Neuts (auto) 5.0 Neutrophils % 65.5 Lymphocytes % 21.8 D Monocytes % 11.4 H Eosinophils % 1.1 Basophils % 0.2 Nucleated RBC % 0 Sodium Potassium Chloride Carbon Dioxide Anion Gap BUN Creatinine Est GFR (CKD-EPI)AfAm Est GFR (CKD-EPI)NonAf POC Glucometer Random Glucose Calcium Magnesium Total Bilirubin AST ALT Alkaline Phosphatase Total Protein Albumin TSH Urine Color Urine Appearance Urine pH Ur Specific Wentworth Urine Protein Urine Glucose (UA) Urine Ketones Urine Blood Urine Nitrite Urine Bilirubin Urine Urobilinogen Ur Leukocyte Esterase Urine WBC (Auto) Urine RBC (Auto) Urine Casts (Auto) U Epithel Cells (Auto) Urine Bacteria (Auto) Urine Osmolality 549 Ur Random Creatinine Ur Random Sodium 35 L Ur Random Potassium 71.0 Ur Random Chloride 89 L Ur Random Urea Nitrogn 11/20/19 11/20/19 11/20/19 15:20 15:20 15:20 WBC RBC Hgb Hct MCV MCH MCHC RDW Plt Count MPV Absolute Neuts (auto) Neutrophils % Lymphocytes % Monocytes % Eosinophils % Basophils % Nucleated RBC % Sodium Potassium Chloride Carbon Dioxide Anion Gap BUN Creatinine Est GFR (CKD-EPI)AfAm Est GFR (CKD-EPI)NonAf POC Glucometer Random Glucose Calcium Magnesium Total Bilirubin AST ALT Alkaline Phosphatase Total Protein Albumin TSH Urine Color Yellow Urine Appearance Clear Urine pH 5.0 Ur Specific Wentworth 1.021 Urine Protein Negative Urine Glucose (UA) Negative Urine Ketones Negative Urine Blood 1+ H Urine Nitrite Negative Urine Bilirubin Negative Urine Urobilinogen 0.2 Ur Leukocyte Esterase 1+ H Urine WBC (Auto) 7 Urine RBC (Auto) 8.7 Urine Casts (Auto) 5 U Epithel Cells (Auto) 3.6 Urine Bacteria (Auto) 611.2 Urine Osmolality Ur Random Creatinine 164.0 H Ur Random Sodium Ur Random Potassium Ur Random Chloride Ur Random Urea Nitrogn 781 11/20/19 11/20/19 11/20/19 17:07 18:50 22:41 WBC 8.3 RBC 2.88 L Hgb 8.3 L Hct 25.3 L MCV 88.0 MCH 28.7 MCHC 32.6 RDW 14.4 Plt Count 201 MPV 8.7 Absolute Neuts (auto) 5.0 Neutrophils % 60.3 Lymphocytes % 26.0 Monocytes % 11.9 H Eosinophils % 1.7 Basophils % 0.1 Nucleated RBC % 0 Sodium Potassium Chloride Carbon Dioxide Anion Gap BUN Creatinine Est GFR (CKD-EPI)AfAm Est GFR (CKD-EPI)NonAf POC Glucometer 106 155 Random Glucose Calcium Magnesium Total Bilirubin AST ALT Alkaline Phosphatase Total Protein Albumin TSH Urine Color Urine Appearance Urine pH Ur Specific Wentworth Urine Protein Urine Glucose (UA) Urine Ketones Urine Blood Urine Nitrite Urine Bilirubin Urine Urobilinogen Ur Leukocyte Esterase Urine WBC (Auto) Urine RBC (Auto) Urine Casts (Auto) U Epithel Cells (Auto) Urine Bacteria (Auto) Urine Osmolality Ur Random Creatinine Ur Random Sodium Ur Random Potassium Ur Random Chloride Ur Random Urea Nitrogn 11/21/19 11/21/19 11/21/19 06:21 07:05 07:05 WBC 5.1 RBC 2.47 L Hgb 7.1 L Hct 21.4 L D MCV 86.6 MCH 28.7 MCHC 33.2 RDW 14.1 Plt Count 191 MPV 8.3 Absolute Neuts (auto) 2.8 Neutrophils % 55.9 Lymphocytes % 28.0 Monocytes % 13.8 H Eosinophils % 2.1 Basophils % 0.2 Nucleated RBC % 0 Sodium 142 Potassium 4.4 Chloride 113 H Carbon Dioxide 27 Anion Gap 2 L BUN 43.6 H Creatinine 1.0 Est GFR (CKD-EPI)AfAm 60.76 Est GFR (CKD-EPI)NonAf 52.42 POC Glucometer 124 Random Glucose 152 H Calcium 8.2 L Magnesium 2.0 Total Bilirubin 0.4 AST 30 ALT 39 Alkaline Phosphatase 54 Total Protein 5.9 L Albumin 2.6 L TSH 0.61 Urine Color Urine Appearance Urine pH Ur Specific Wentworth Urine Protein Urine Glucose (UA) Urine Ketones Urine Blood Urine Nitrite Urine Bilirubin Urine Urobilinogen Ur Leukocyte Esterase Urine WBC (Auto) Urine RBC (Auto) Urine Casts (Auto) U Epithel Cells (Auto) Urine Bacteria (Auto) Urine Osmolality Ur Random Creatinine Ur Random Sodium Ur Random Potassium Ur Random Chloride Ur Random Urea Nitrogn Active Medications Generic Name Dose Route Start Last Admin Trade Name Freq PRN Reason Stop Dose Admin Metronidazole 500 mg in 100 mls @ 100 mls/hr 11/20/19 14:30 11/21/19 10:13 Flagyl 500mg Premixed Ivpb - IVPB 100 mls/hr Q8H-IV FLYNN Administration Ceftriaxone Sodium 1 gm/ 50 mls @ 100 mls/hr 11/21/19 10:45 Dextrose IVPB DAILY FLYNN Lactated Ringer's 1,000 ml in 1,000 mls @ 100 mls/hr 11/21/19 12:00 Lactated Ringers Solution IV ASDIR FLYNN Insulin Aspart 1 vial 11/20/19 11:00 11/21/19 06:22 Novolog Vial Sliding Scale - SQ Not Given ACHS [facility] Protocol Pantoprazole Sodium 40 mg 11/20/19 22:00 11/21/19 10:13 Protonix Iv IVPUSH 40 mg BID FLYNN Administration ASSESSMENT/PLAN: Patient is an 84 year old female with past medical history HTN, HLD, DM, Right BKA, cholelithiasis, was brought in from [facility] due to 3 episodes of rectal bleed. #GI bleed -could be UGIB vs Lower GI bleed, with chronic ASA and NSAIDs use. -IV Protonix BID per GI recs -EDG done today will f/u report in AM. -GI (Dr. Khan) to do colonoscopy in AM. -IVF increased to 100LR/hr -Transfuse prn to keep Hgb >7 -CT abdomen and pelvis #Abdominal pain -CT abdomen and pelvis - s/p percutaneous cholecystostomy with decompression of the gallbladder 11/07/18. Extensive left-sided diverticulosis with probably mild acute diverticulitis at the descending/sigmoid colon junction. -IVF -pain control with IV Tylenol -Will start IV Ceftriaxone and Flagyl for diverticulitis - will send pt home on vantin flagyl po if colonoscopy normal tomorrow. 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 -will hold off blood pressure medications in light of GI bleed -will resume BP meds as hemodynamics permit -on Losartan 100mg, HCTZ 50mg, Norvasc 10mg #HLD -Continue home Lipitor #DM -On Insulin Levemir 12u HS -Insulin sliding scale implemented -BGM ACHS #FEN -IV NS @100cc/hr -Electrolytes wnl, routine bmp monitoring -NPO #Prophylaxis -SCDs, avoid chemical ppx in setting of GI bleed #Disposition -admit to med surg Visit type - Emergency Visit Emergency Visit: Yes ED Registration Date: 11/20/19 Care time: The patient presented to the Emergency Department on the above date and was hospitalized for further evaluation of their emergent condition. - New Patient This patient is new to me today: Yes Date on this admission: 11/21/19 - Critical Care Critical Care patient: No - Discharge Referral Referred to [facility] Med P.C.: No ATTENDING PHYSICIAN STATEMENT I saw and evaluated the patient. I reviewed the resident's note and discussed the case with the resident. I agree with the resident's findings and plan as documented. SUBJECTIVE: OBJECTIVE: ASSESSMENT AND PLAN:
[2019-11-21] MEDS: LACTATED RINGERS SOLUTION 1,000 ML/1,000 ML INFUS.BAG IV SCH (12:50)
[2019-11-21 14:12] LABS: BASO % 0.4 % (0-2.0); EOS % 2.7 % (0-4.5); HEMATOCRIT 22.4 % (32.4-45.2); HEMOGLOBIN 7.4 GM/dL (10.7-15.3); LYMPH % 27.2 % (8-40); MCH 28.6 pg (25.7-33.7); MCHC 32.9 g/dl (32.0-36.0); MEAN CELL VOLUME 87.1 fl (80-96); MONO % 15.4 % (3.8-10.2); NEUT % 54.3 % (42.8-82.8); PLATELET COUNT 206 K/MM3 (134-434); RBC 2.57 M/mm3 (3.60-5.2); RDW 14.2 % (11.6-15.6); WHITE BLOOD COUNT 5.2 K/mm3 (4.0-10.0)
--- NOTE | 2019-11-21 15:54 | PN ---
Progress Note (short form) - Note Progress Note: EGD complete. report left in procedural section of the physical chart and will be scanned into [employer]. Spoke with patient's daughter brunilda chaney. She states that her mother has had recurrent diverticular bleedd in the past. Her last colonoscopy may have been 5 years ago. PLan for colonoscopy 11/22.
[2019-11-21] MEDS ORDERED: PEG 3350/NA SULF BICARB CL/KCL 4000 ML SOLN.RECON PO ONE (17:00)
[2019-11-21] MEDS ORDERED: BISACODYL 5 MG TABLET.DR (FP) PO ONE (18:00)
[2019-11-21 18:11] LABS: BASO % 0.5 % (0-2.0); EOS % 2.3 % (0-4.5); HEMATOCRIT 22.7 % (32.4-45.2); HEMOGLOBIN 7.3 GM/dL (10.7-15.3); LYMPH % 23.8 % (8-40); MCH 28.3 pg (25.7-33.7); MCHC 32.3 g/dl (32.0-36.0); MEAN CELL VOLUME 87.6 fl (80-96); MEAN PLT VOLUME 7.6 fl (7.5-11.1); MONO % 15.2 % (3.8-10.2); NEUT % 58.2 % (42.8-82.8); PLATELET COUNT 217 K/MM3 (134-434); RBC 2.59 M/mm3 (3.60-5.2); WHITE BLOOD COUNT 5.4 K/mm3 (4.0-10.0)
[2019-11-21] MEDS ORDERED: INSULIN (NOVOLOG) ASPART 100 UNITS/ML 10ML VIAL ONE (21:26)
[2019-11-22] MEDS: INSULIN SLIDING SCALE (NOVOLOG) 1 VIAL SQ SCH ×4 (06:30→21:57)
[2019-11-22] MEDS ORDERED: ACETAMINOPHEN 325 MG TABLET (FP) PO PRN (08:12)
[2019-11-22] MEDS ORDERED: DEXTROSE 5%-WATER - 50 ML IVPB ONE (08:52)
[2019-11-22] MEDS ORDERED: cefTRIAXone SODIUM 1 GM VIAL ONE (08:52)
[2019-11-22 09:14] LABS: BASO % 0.2 % (0-2.0); EOS % 4.4 % (0-4.5); HEMATOCRIT 25.6 % (32.4-45.2); HEMOGLOBIN 8.6 GM/dL (10.7-15.3); LYMPH % 27.6 % (8-40); MCH 29.1 pg (25.7-33.7); MCHC 33.6 g/dl (32.0-36.0); MEAN CELL VOLUME 86.7 fl (80-96); MONO % 15.2 % (3.8-10.2); NEUT % 52.6 % (42.8-82.8); PLATELET COUNT 189 K/MM3 (134-434); RBC 2.95 M/mm3 (3.60-5.2); RDW 13.4 % (11.6-15.6); WHITE BLOOD COUNT 4.9 K/mm3 (4.0-10.0)
[2019-11-22 09:47] LABS: ALBUMIN 2.7 g/dl (3.4-5.0); BILIRUBIN,TOTAL 0.6 mg/dL (0.2-1); BLOOD UREA NITROGEN 17.8 mg/dL (7-18); CALCIUM 8.4 mg/dL (8.5-10.1); CREATININE 0.7 mg/dL (0.55-1.3); TOT PROT 5.9 g/dl (6.4-8.2)
--- NOTE | 2019-11-22 14:54 | PN ---
Progress Note (short form) - Note Progress Note: Colonoscopy complete. Report left in procedural section of the physical chart and will be scanned into [employer]
[2019-11-22] MEDS: LACTATED RINGERS SOLUTION 1,000 ML/1,000 ML INFUS.BAG IV SCH (15:51)
--- NOTE | 2019-11-22 16:50 | PN ---
Teaching Attending Note Name of Resident: Greyson Pope ATTENDING PHYSICIAN STATEMENT I saw and evaluated the patient. I reviewed the resident's note and discussed the case with the resident. I agree with the resident's findings and plan as documented. Pending scope today. No bleeding. No new issues. Procedure elective. No GI complaints. Will elucidate DC.
--- NOTE | 2019-11-22 17:11 | PN ---
Physical Exam: SUBJECTIVE: Patient seen and examined at bedside. 1 packed rbc transfusion given. C/o head feeling like matches breaking in her head, hip, shoulder, girdle pain associated. OBJECTIVE: Vital Signs Period Temp Pulse Resp BP Sys/Reyes Pulse Ox Last 24 Hr 98 F-99.0 F 59-89 16-20 108-152/38-80 97-100 GENERAL: The patient is awake, alert, and fully oriented, in no acute distress. LUNGS: Breath sounds equal, clear to auscultation bilaterally, no wheezes, no crackles, no accessory muscle use. HEART: Regular rate and rhythm, S1, S2 without murmur, rub or gallop. ABDOMEN: Soft, +diffuse tenderness, worse on RLQ/LLQ improving though, not distended. EXTREMITIES: 2+ pulses, warm, well-perfused, no edema, Rt leg amputation NEUROLOGICAL: Cranial nerves II through XII grossly intact. Normal speech, gait not observed. SKIN: Warm, dry, normal turgor, no rashes or lesions noted Laboratory Results - last 24 hr 11/20/19 11/21/19 11/21/19 06:40 17:50 18:00 WBC 5.4 RBC 2.59 L Hgb 7.3 L Hct 22.7 L MCV 87.6 MCH 28.3 MCHC 32.3 RDW 14.0 Plt Count 217 MPV 7.6 Absolute Neuts (auto) 3.1 Neutrophils % 58.2 Lymphocytes % 23.8 Monocytes % 15.2 H Eosinophils % 2.3 Basophils % 0.5 Nucleated RBC % 0 ESR Sodium Potassium Chloride Carbon Dioxide Anion Gap BUN Creatinine Est GFR (CKD-EPI)AfAm Est GFR (CKD-EPI)NonAf POC Glucometer 127 Random Glucose Calcium Total Bilirubin AST ALT Alkaline Phosphatase C-Reactive Protein Total Protein Albumin Blood Type A POSITIVE Antibody Screen Negative Crossmatch See Detail 11/21/19 11/22/19 11/22/19 21:22 06:25 08:23 WBC 4.9 RBC 2.95 L Hgb 8.6 L Hct 25.6 L MCV 86.7 MCH 29.1 MCHC 33.6 RDW 13.4 Plt Count 189 MPV 8.0 Absolute Neuts (auto) 2.6 Neutrophils % 52.6 Lymphocytes % 27.6 Monocytes % 15.2 H Eosinophils % 4.4 D Basophils % 0.2 Nucleated RBC % 0 ESR Sodium Potassium Chloride Carbon Dioxide Anion Gap BUN Creatinine Est GFR (CKD-EPI)AfAm Est GFR (CKD-EPI)NonAf POC Glucometer 223 145 Random Glucose Calcium Total Bilirubin AST ALT Alkaline Phosphatase C-Reactive Protein Total Protein Albumin Blood Type Antibody Screen Crossmatch 11/22/19 11/22/19 11/22/19 08:23 08:23 11:05 WBC RBC Hgb Hct MCV MCH MCHC RDW Plt Count MPV Absolute Neuts (auto) Neutrophils % Lymphocytes % Monocytes % Eosinophils % Basophils % Nucleated RBC % ESR 44 H Sodium 144 Potassium 4.0 Chloride 111 H Carbon Dioxide 26 Anion Gap 7 L BUN 17.8 Creatinine 0.7 Est GFR (CKD-EPI)AfAm 93.52 Est GFR (CKD-EPI)NonAf 80.69 POC Glucometer 131 Random Glucose 149 H Calcium 8.4 L Total Bilirubin 0.6 AST 34 ALT 36 Alkaline Phosphatase 52 C-Reactive Protein 2.1 H Total Protein 5.9 L Albumin 2.7 L Blood Type Antibody Screen Crossmatch Active Medications Generic Name Dose Route Start Last Admin Trade Name Freq PRN Reason Stop Dose Admin Acetaminophen 650 mg 11/22/19 08:12 Tylenol - PO Q6H PRN Fever Metronidazole 500 mg in 100 mls @ 100 mls/hr 11/20/19 14:30 11/22/19 09:43 Flagyl 500mg Premixed Ivpb - IVPB 100 mls/hr Q8H-IV FLYNN Administration Ceftriaxone Sodium 1 gm/ 50 mls @ 100 mls/hr 11/21/19 10:45 11/22/19 09:01 Dextrose IVPB 100 mls/hr DAILY FLYNN Administration Lactated Ringer's 1,000 ml in 1,000 mls @ 100 mls/hr 11/21/19 12:00 11/21/19 12:50 Lactated Ringers Solution IV 100 mls/hr ASDIR FLYNN Administration Insulin Aspart 1 vial 11/20/19 11:00 11/22/19 11:06 Novolog Vial Sliding Scale - SQ Not Given ACHS FLYNN Protocol ASSESSMENT/PLAN: Patient is an 84 year old female with past medical history HTN, HLD, DM, Right BKA, cholelithiasis, was brought in from [facility] due to 3 episodes of rectal bleed. #GI bleed -could be UGIB vs Lower GI bleed, with chronic ASA and NSAIDs use. -IV Protonix BID per GI recs -EDG done yesterday found to be normal, colonoscopy results are mod diverticulosis throughout colon, old/clotted blood in distal colon (likely old diverticular bleed), incidental submucosal lesion, large semipedunculated polyp in sigmoid, 4mm cecal polyp, large internal hemorrhoids. - Avoid nsaids, wait path results, clear diet and advance in AM, if significant bleeding will transfer to ICU and obtain CTA to delineate where bleed is. -IVF 100LR/hr -Transfuse prn to keep Hgb >8 #Acute diverticulitis -CT abdomen and pelvis - s/p percutaneous cholecystostomy with decompression of the gallbladder 11/07/18. Extensive left-sided diverticulosis with mild acute diverticulitis at the descending/sigmoid colon junction. 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 -will hold off blood pressure medications in light of GI bleed -will resume BP meds as hemodynamics permit -on Losartan 100mg, HCTZ 50mg, Norvasc 10mg #HLD -Continue home Lipitor #DM -On Insulin Levemir 12u HS -Insulin sliding scale implemented -BGM ACHS #FEN -IV NS @100cc/hr -Electrolytes wnl, routine bmp monitoring -NPO #Prophylaxis -SCDs, avoid chemical ppx in setting of GI bleed Visit type - Emergency Visit Emergency Visit: Yes ED Registration Date: 11/20/19 Care time: The patient presented to the Emergency Department on the above date and was hospitalized for further evaluation of their emergent condition. - New Patient This patient is new to me today: No - Critical Care Critical Care patient: No - Discharge Referral Referred to [facility] Med P.C.: No ATTENDING PHYSICIAN STATEMENT I saw and evaluated the patient. I reviewed the resident's note and discussed the case with the resident. I agree with the resident's findings and plan as documented. SUBJECTIVE: OBJECTIVE: ASSESSMENT AND PLAN:
[2019-11-22] MEDS ORDERED: AZITHROMYCIN 250 MG TABLET PO ONE ×2 (17:19→18:30)
[2019-11-22] MEDS ORDERED: AMOX TR/POT CLAV 875MG/125MG TABLETS (FP) PO SCH (17:30)
[2019-11-22] MEDS ORDERED: PT OWN MED DRAWER 7, Y5N ONE (17:47)
[2019-11-23] MEDS: INSULIN SLIDING SCALE (NOVOLOG) 1 VIAL SQ SCH ×4 (07:00→21:19)
[2019-11-23 08:07] LABS: BASO % 0.1 % (0-2.0); EOS % 3.8 % (0-4.5); HEMATOCRIT 25.3 % (32.4-45.2); HEMOGLOBIN 8.6 GM/dL (10.7-15.3); LYMPH % 20.2 % (8-40); MCHC 33.8 g/dl (32.0-36.0); MEAN CELL VOLUME 85.8 fl (80-96); MEAN PLT VOLUME 7.7 fl (7.5-11.1); MONO % 11.3 % (3.8-10.2); NEUT % 64.6 % (42.8-82.8); PLATELET COUNT 226 K/MM3 (134-434); RBC 2.95 M/mm3 (3.60-5.2); RDW 14.1 % (11.6-15.6); WHITE BLOOD COUNT 6.7 K/mm3 (4.0-10.0)
[2019-11-23 08:32] LABS: ALBUMIN 2.8 g/dl (3.4-5.0); BILIRUBIN,TOTAL 0.4 mg/dL (0.2-1); BLOOD UREA NITROGEN 5.6 mg/dL (7-18); CALCIUM 8.6 mg/dL (8.5-10.1); CREATININE 0.7 mg/dL (0.55-1.3); POTASSIUM 3.6 mmol/L (3.5-5.1)
--- NOTE | 2019-11-23 09:14 | PN ---
Progress Note (short form) - Note Progress Note: Pt reports feeling diffusely uncomfortable with a vague L-sided abdominal discomfort. Abdomen: bowel sounds present,soft, nontender even to deep palpation. Hct 25 (pt received transfusion yesterday). Endoscopy reports noted. Will advance diet to full liquid diabetic diet today.
[2019-11-23] MEDS ORDERED: cefTRIAXone SODIUM 1 GM VIAL ONE (09:31)
[2019-11-23] MEDS ORDERED: DEXTROSE 5%-WATER - 50 ML IVPB ONE (09:31)
[2019-11-23] MEDS ORDERED: PT OWN MED DRAWER 7, Y5N ONE (09:31)
[2019-11-23] MEDS: AZITHROMYCIN 250 MG TABLET PO SCH (09:46)
[2019-11-23] MEDS: CEFTRIAXONE 1 GM in DEXTROSE 5%-WATER - 50 ML IVPB SCH (11:00)
--- NOTE | 2019-11-23 14:50 | DS ---
Physical Exam: SUBJECTIVE: Patient seen and examined OBJECTIVE: Vital Signs Period Temp Pulse Resp BP Sys/Reyes Pulse Ox Last 24 Hr 98 F-98.4 F 63-76 19-20 116-153/59-70 97-100 PHYSICAL EXAM GENERAL: The patient is awake, alert, and fully oriented, in no acute distress. HEAD: Normal with no signs of trauma. EYES: PERRL, extraocular movements intact, sclera anicteric, conjunctiva clear. ENT: Ears normal, nares patent, oropharynx clear without exudates, moist mucous membranes. NECK: Trachea midline, full range of motion, supple. LUNGS: Breath sounds equal, clear to auscultation bilaterally, no wheezes, no crackles, no accessory muscle use. HEART: Regular rate and rhythm, S1, S2 without murmur, rub or gallop. ABDOMEN: Soft, nontender, nondistended, normoactive bowel sounds, no guarding, no rebound, no hepatosplenomegaly, no masses. EXTREMITIES: 2+ pulses, warm, well-perfused, no edema. NEUROLOGICAL: Cranial nerves II through XII grossly intact. Normal speech, gait not observed. PSYCH: Normal mood, normal affect. SKIN: Warm, dry, normal turgor, no rashes or lesions noted. LABS Laboratory Results - last 24 hr 11/22/19 11/22/19 11/23/19 17:23 21:56 06:59 WBC RBC Hgb Hct MCV MCH MCHC RDW Plt Count MPV Absolute Neuts (auto) Neutrophils % Lymphocytes % Monocytes % Eosinophils % Basophils % Nucleated RBC % Sodium Potassium Chloride Carbon Dioxide Anion Gap BUN Creatinine Est GFR (CKD-EPI)AfAm Est GFR (CKD-EPI)NonAf POC Glucometer 121 144 129 Random Glucose Calcium Total Bilirubin AST ALT Alkaline Phosphatase Total Protein Albumin 11/23/19 11/23/19 11/23/19 07:15 07:15 12:31 WBC 6.7 RBC 2.95 L Hgb 8.6 L Hct 25.3 L MCV 85.8 MCH 29.0 MCHC 33.8 RDW 14.1 Plt Count 226 MPV 7.7 Absolute Neuts (auto) 4.3 Neutrophils % 64.6 D Lymphocytes % 20.2 D Monocytes % 11.3 H Eosinophils % 3.8 Basophils % 0.1 Nucleated RBC % 0 Sodium 142 Potassium 3.6 Chloride 107 Carbon Dioxide 29 Anion Gap 6 L BUN 5.6 L Creatinine 0.7 Est GFR (CKD-EPI)AfAm 93.52 Est GFR (CKD-EPI)NonAf 80.69 POC Glucometer 177 Random Glucose 132 H Calcium 8.6 Total Bilirubin 0.4 AST 36 ALT 36 Alkaline Phosphatase 52 Total Protein 6.0 L Albumin 2.8 L HOSPITAL COURSE: Date of Admission:11/20/19 Date of Discharge: 11/23/19 No bleeding this AM, stable sympotms. Advance diet per Gi. Meds reconcilied. No new issues. Minutes to complete discharge: 30 Discharge Summary Problems reviewed: Yes Reason For Visit: GASTROINTESTINAL HEMORRHAGE Current Active Problems Diverticulitis (Acute) GI bleed (Acute) Condition: Good - Instructions Diet, Activity, Other Instructions: You were admitted for low blood hemoglobin levels. You were given blood to replenish it. You were seen and evaluated by a stomach doctor (Dr. Khan) who did imaging studies (EGD and colonoscopy) which showed some small bleeding areas that were zapped and no longer bleeding. You were also found to have an intestine infection that was treated with antibiotics. You should follow up with your Dr. Khan for your low blood levels. You should follow up with your primary care doctor in 1 week for your overall health maintenance. You should avoid ibuprofen use, motrin, or Aspirin for at least 10 days after leaving here. You should increase your fiber intake (green leafy vegetables, kale, spinach, grains, and oats). Medications to continue after you are discharged: Vantin 100 mg by mouth twice daily for your infection in your intestines for the next 7 days (). Flagyl 500 mg three times a day by mouth for you intestinal infection for the next 7 days (). Medications we discontinued: Aspirin Meloxicam You should return to the emergency room if you have any worsening of your current symptoms or: chest pain, shortness of breath, bowel/bladder complaints, abdominal pain, nausea vomiting. Referrals: Bashir Mendez MD [Primary Care Provider] - Toby Khan DO [Staff Physician] - Disposition: HALF-WAY FACILITY - Home Medications Comprehensive Discharge Medication List: Ambulatory Orders Acetaminophen 500 mg PO PRN 07/12/19 Amlodipine Besylate [Norvasc -] 10 mg PO DAILY 07/12/19 Aspirin 81 mg PO DAILY 07/12/19 Atorvastatin Ca [Lipitor] 40 mg PO HS 07/12/19 Ferrous Sulfate 325 mg PO DAILY 07/12/19 Hydrochlorothiazide 50 mg PO DAILY 07/12/19 Insulin (LOG) Aspart [NovoLOG -] See Protocol SQ BID 07/12/19 Insulin Detemir [Levemir Flextouch] 12 unit SQ HS 07/12/19 Losartan Potassium [Cozaar] 100 mg PO DAILY 07/12/19 Multivitamins [Tab-A-Vit -] 1 tab PO DAILY 07/12/19 metFORMIN HCL [Metformin HCl] 500 mg PO DAILY 07/12/19 Duloxetine HCl 40 mg PO DAILY 11/20/19 Gabapentin 100 mg PO TID 11/20/19 Meloxicam 15 mg PO DAILY 11/20/19 This patient is new to me today: No Emergency Visit: No Critical Care patient: No - Discharge Referral Referred to [facility] No
[2019-11-23] MEDS: LACTATED RINGERS SOLUTION 1,000 ML/1,000 ML INFUS.BAG IV SCH (18:38)
[2019-11-24] MEDS: INSULIN SLIDING SCALE (NOVOLOG) 1 VIAL SQ SCH ×2 (06:14→11:42)
[2019-11-24] MEDS ORDERED: PT OWN MED DRAWER 7, Y5N ONE ×2 (07:01→09:52)
[2019-11-24 09:00] LABS: BASO % 0.3 % (0-2.0); EOS % 3.3 % (0-4.5); HEMATOCRIT 29.4 % (32.4-45.2); HEMOGLOBIN 9.8 GM/dL (10.7-15.3); LYMPH % 27.8 % (8-40); MCH 28.9 pg (25.7-33.7); MCHC 33.3 g/dl (32.0-36.0); MEAN CELL VOLUME 86.8 fl (80-96); MEAN PLT VOLUME 7.3 fl (7.5-11.1); MONO % 9.8 % (3.8-10.2); NEUT % 58.8 % (42.8-82.8); PLATELET COUNT 269 K/MM3 (134-434); RBC 3.39 M/mm3 (3.60-5.2); RDW 13.9 % (11.6-15.6); WHITE BLOOD COUNT 6.3 K/mm3 (4.0-10.0)
--- NOTE | 2019-11-24 09:41 | PN ---
Progress Note (short form) - Note Progress Note: Pt complains of headache, neck pain, abdominal discomfort. Hgb/Hct up this a.m.: CBC WBC 6.3 K/mm3 (4.0-10.0) 11/24/19 08:45 RBC 3.39 M/mm3 (3.60-5.2) L 11/24/19 08:45 Hgb 9.8 GM/dL (10.7-15.3) L 11/24/19 08:45 Hct 29.4 % (32.4-45.2) L D 11/24/19 08:45 MCV 86.8 fl (80-96) 11/24/19 08:45 MCH 28.9 pg (25.7-33.7) 11/24/19 08:45 MCHC 33.3 g/dl (32.0-36.0) 11/24/19 08:45 RDW 13.9 % (11.6-15.6) 11/24/19 08:45 Plt Count 269 K/MM3 (134-434) 11/24/19 08:45 MPV 7.3 fl (7.5-11.1) L 11/24/19 08:45 Absolute Neuts (auto) 3.7 K/mm3 (1.5-8.0) 11/24/19 08:45 Neutrophils % 58.8 % (42.8-82.8) 11/24/19 08:45 Lymphocytes % 27.8 % (8-40) D 11/24/19 08:45 Monocytes % 9.8 % (3.8-10.2) 11/24/19 08:45 Eosinophils % 3.3 % (0-4.5) 11/24/19 08:45 Basophils % 0.3 % (0-2.0) 11/24/19 08:45 Nucleated RBC % 0 % (0-0) 11/24/19 08:45 ESR 44 mm/hr (0-30) H 11/22/19 08:23 Abdomen soft, nontender (when patient is distracted in conversation I can press deeply). Cholecystostomy tube draining bile, no blood. No GI objection to discharge to [place]. She should stay off of NSAIDs. Can be evaluated in several weeks for cholecystectomy to enable removal of cholecystostomy tube.
[2019-11-24] MEDS: AZITHROMYCIN 250 MG TABLET PO SCH (09:59)
[2019-11-24] MEDS ORDERED: cefTRIAXone SODIUM 1 GM VIAL ONE (11:33)
[2019-11-24] MEDS ORDERED: DEXTROSE 5%-WATER - 50 ML IVPB ONE (11:33)
[2019-11-24] MEDS: CEFTRIAXONE 1 GM in DEXTROSE 5%-WATER - 50 ML IVPB SCH (11:37)
[2019-11-24 12:31] VITALS: BP 134/72; PULSE 68; TEMP 98.4
--- NOTE | 2019-11-28 15:17 | PATH ---
Surgical Pathology Report Patient Name: CRISTI NASCIMENTO [facility]. Rec. #: [id number] /Age/Gender: 1935 (Age: 84) / F Account: [id number] Location: [facility] MED/SURG Taken: 11/22/2019 Received: 11/25/2019 Reported: 11/28/2019 Physicians: Josesito Izquierdo MD Specimen(s) Received A: CECAL POLYP B: SIGMOID COLON C: COLON, POLYP, 30 CM Clinical History Gastrointestinal hemorrhage Postoperative diagnosis: Colon polyp, diverticulosis, hemorrhoids Final Diagnosis A. CECAL POLYP, BIOPSY: POLYPOID COLONIC MUCOSA WITH MARKED CHRONIC ACTIVE COLITIS, INCLUDING PROMINENT LYMPHOID AGGREGATES. NO GRANULOMA OR DYSPLASIA IDENTIFIED. B. SIGMOID COLON, BIOPSY: HYPERPLASTIC POLYP. C. COLON, POLYP, 30 CM, BIOPSY: HYPERPLASTIC POLYP. MINUTE SUBMUCOSAL SPINDLE CELL PROLIFERATION, SEE COMMENT. Comment: Part A, Findings are non-specific. Differential diagnosis is broad, includes infection, medication, diverticular disease, and inflammatory bowel disease. Part C, A minute spindle cell proliferation is identified on the deeper portion of the biopsy fragments. Immunohistochemical stain performed and interpreted at [facility] show S100 is positive in this area. Additional immunohistochemical stains performed at [place], [place] ([id number]) and interpreted at [facility] show the lesion is positive for SMA and desmin, while negative for CD117 (C-Kit). DOG-1 stain shows weak non-specific staining. Overall, the spindle cell lesion shows smooth muscle differentiation, which may represent a portion of the muscular wall; however a deeper lesion such as a leiomyoma cannot be completely excluded. Deeper levels have been examined. Suggest clinical and endoscopic correlation. Positive and negative controls (internal if applicable) show appropriate results. Electronically Signed Maeve Zavala M.D. Gross Description A. Received in formalin, labeled "cecal polyp biopsy" are 2 lantigua, irregular portions of soft tissue measuring 0.3 and 0.4 cm. in greatest dimension. The specimens are submitted in toto in one cassette. B. Received in formalin, labeled "biopsy sigmoid colon" are 3 lantigua, irregular portions of soft tissue ranging from 0.3-0.4 cm. in greatest dimension. The specimens are submitted in toto in one cassette. C. Received in formalin, labeled "biopsy polyp at 20 cm" are 3 lantigua, irregular portions of soft tissue ranging from 0.2-0.3 cm. in greatest dimension. The specimens are submitted in toto in one cassette. 11/25/2019 [facility]11/25/2019
== END 2019-11-24 14:56 | DRG 378 ==
LOC: JER 05:32 → JERBED 08:21 → J8W 22:18
PROVIDERS: ADMIT Internal Medicine; ATTEND Internal Medicine
PROC: 0DJ08ZZ Inspection of Upper Intestinal Tract, Via Natural or Artificial Opening Endoscopic (ICD-10-PCS; principal; 2019-11-21 15:30)
PROC: 0DDN8ZX Extraction of Sigmoid Colon, Via Natural or Artificial Opening Endoscopic, Diagnostic (ICD-10-PCS; 2019-11-22)
PROC: 0DBH8ZX Excision of Cecum, Via Natural or Artificial Opening Endoscopic, Diagnostic (ICD-10-PCS; 2019-11-22)
PROC: 30233N1 Transfusion of Nonautologous Red Blood Cells into Peripheral Vein, Percutaneous Approach (ICD-10-PCS; 2019-11-22)
DX: K57.31 Diverticulosis of large intestine without perforation or abscess with bleeding (principal); N17.9 Acute kidney failure, unspecified; I50.32 Chronic diastolic (congestive) heart failure; K62.5 Hemorrhage of anus and rectum; E78.5 Hyperlipidemia, unspecified; E11.9 Type 2 diabetes mellitus without complications; F32.9 Major depressive disorder, single episode, unspecified; K21.9 Gastro-esophageal reflux disease without esophagitis; D64.9 Anemia, unspecified; K64.8 Other hemorrhoids; I11.0 Hypertensive heart disease with heart failure; Z89.511 Acquired absence of right leg below knee
CPT/HCPCS: 36415; 36430; 36511; 71045-TC-FY; 74176-TC; 80053; 81003; 82272; 82436; 82550; 82565; 82962; 83735; 83935; 84133; 84300; 84443; 84484; 84540; 85025; 85610; 85651; 85730; 86140; 86850; 86900; 86901; 86922; 93005; 93010; 97116-GP; 97161-GP; 99285-25; J7030; P9038; P9058

== ENCOUNTER → 2020-03-30 | Day surgery (SDC) | payer OTHER | END | disposition home or self-care (01) | LOC: JRADIR 10:32 | PROVIDERS: ATTEND Radiology Diagnostic Radiology | PROC: 0FPB3DZ Removal of Intraluminal Device from Hepatobiliary Duct, Percutaneous Approach (ICD-10-PCS; principal; 2020-03-30) | PROC: 0F793DZ Dilation of Common Bile Duct with Intraluminal Device, Percutaneous Approach (ICD-10-PCS; 2020-03-30) | DX: Z48.03 Encounter for change or removal of drains (principal); K80.10 Calculus of gallbladder with chronic cholecystitis without obstruction | CPT/HCPCS: 47536; C1729; 75984-TC-RT-FY; A4358; C1769 ==

== ENCOUNTER → 2020-09-01 | Day surgery (SDC) | payer OTHER | END | disposition home or self-care (01) | LOC: JRADIR 10:24 | PROVIDERS: ATTEND Radiology Diagnostic Radiology | PROC: 0F9430Z Drainage of Gallbladder with Drainage Device, Percutaneous Approach (ICD-10-PCS; principal; 2020-09-01) | DX: K80.18 Calculus of gallbladder with other cholecystitis without obstruction (principal) | CPT/HCPCS: 47490; C1729; 47536; 75984-TC-RT-FY ==

== ENCOUNTER 2020-10-16 15:21 | Emergency (ER) | payer OTHER ==
[2020-10-16 16:04] VITALS: TEMP 98.6; BMI 28.3
[2020-10-16 17:09] LABS: BASO % 0.3 % (0-2.0); EOS % 2.9 % (0-4.5); HEMATOCRIT 35.7 % (32.4-45.2); HEMOGLOBIN 11.5 GM/dL (10.7-15.3); LYMPH % 31.9 % (8-40); MCH 29.4 pg (25.7-33.7); MCHC 32.1 g/dl (32.0-36.0); MEAN CELL VOLUME 91.6 fl (80-96); MEAN PLT VOLUME 8.9 fl (7.5-11.1); MONO % 11.6 % (3.8-10.2); NEUT % 53.3 % (42.8-82.8); PLATELET COUNT 170 K/MM3 (134-434); RDW 13.4 % (11.6-15.6)
[2020-10-16 17:26] LABS: INR 0.99 (0.83-1.09)
[2020-10-16 17:28] LABS: ACTIVATED PTT 29.1 SECONDS (25.2-36.5)
[2020-10-16 17:29] LABS: ALBUMIN 2.9 g/dl (3.4-5.0); CALCIUM 8.3 mg/dL (8.5-10.1)
[2020-10-16 17:30] LABS: BLOOD UREA NITROGEN 21.8 mg/dL (7-18)
[2020-10-16 17:32] LABS: CREATININE 1.1 mg/dL (0.55-1.3)
[2020-10-16 17:34] LABS: BILIRUBIN,TOTAL 0.3 mg/dL (0.2-1); TOT PROT 7.4 g/dl (6.4-8.2)
[2020-10-16 17:54] LABS: POTASSIUM 9.9 mmol/L (3.5-5.1)
[2020-10-16 18:56] LABS: BLOOD UREA NITROGEN 20.8 mg/dL (7-18); CALCIUM 8.5 mg/dL (8.5-10.1); POTASSIUM 3.9 mmol/L (3.5-5.1)
[2020-10-16 19:00] LABS: BILIRUBIN,TOTAL 0.2 mg/dL (0.2-1); TOT PROT 6.6 g/dl (6.4-8.2)
[2020-10-17 01:02] VITALS: BP 151/71; PULSE 67
== END 2020-10-17 01:18 | disposition home or self-care (01) ==
LOC: JER 15:21
DX: T85.518A Breakdown (mechanical) of other gastrointestinal prosthetic devices, implants and grafts, initial encounter (principal); R10.31 Right lower quadrant pain
CPT/HCPCS: 36415; 70450-TC; 76705-TC; 80053; 83690; 85025; 85610; 85730; 86850; 86900; 86901; 99285-25

== ENCOUNTER 2020-11-25 09:30 | Inpatient (IN) | payer OTHER ==
[2020-11-25 11:15] LABS: BASO % 0.2 % (0-2.0); EOS % 1.5 % (0-4.5); HEMATOCRIT 24.3 % (32.4-45.2); HEMOGLOBIN 7.9 GM/dL (10.7-15.3); LYMPH % 30.6 % (8-40); MCH 29.7 pg (25.7-33.7); MCHC 32.6 g/dl (32.0-36.0); MEAN CELL VOLUME 91.1 fl (80-96); MEAN PLT VOLUME 8.1 fl (7.5-11.1); MONO % 9.2 % (3.8-10.2); NEUT % 58.5 % (42.8-82.8); PLATELET COUNT 220 K/MM3 (134-434); RBC 2.67 M/mm3 (3.60-5.2); RDW 13.1 % (11.6-15.6); WHITE BLOOD COUNT 7.3 K/mm3 (4.0-10.0)
[2020-11-25 11:21] LABS: INR 1.09 (0.83-1.09); PROTHROMBIN TIME (PATIENT) 13.4 SEC (9.7-13.0)
[2020-11-25 11:24] LABS: ACTIVATED PTT 27.1 SECONDS (25.2-36.5)
[2020-11-25 11:29] LABS: POTASSIUM 4.8 mmol/L (3.5-5.1)
[2020-11-25 11:30] LABS: CALCIUM 8.7 mg/dL (8.5-10.1)
[2020-11-25 11:31] LABS: ALBUMIN 2.8 g/dl (3.4-5.0); BLOOD UREA NITROGEN 40.8 mg/dL (7-18)
[2020-11-25] MEDS ORDERED: ACETAMINOPHEN 1000 MG/100 ML VIAL (NON FORMULARY) IVPB ONE (11:31)
[2020-11-25 11:34] LABS: CREATININE 1.1 mg/dL (0.55-1.3)
[2020-11-25 11:36] LABS: BILIRUBIN,TOTAL 0.3 mg/dL (0.2-1); TOT PROT 6.7 g/dl (6.4-8.2)
[2020-11-25] MEDS ORDERED: ACETAMINOPHEN INJECTION 100 ML IVPB ONE (11:48)
[2020-11-25 12:42] LABS: EPI CELLS 12 /uL (0-25.1); HYALINE CASTS 0 /uL (0-3.1); URINE APPEARANCE CLOUDY; URINE BACTERIA >9,000 /uL (0-1359); URINE BILIRUBIN NEGATIVE (NEGATIVE); URINE COLOR YELLOW; URINE GLUCOSE (UA) NEGATIVE (NEGATIVE); URINE KETONE NEGATIVE (NEGATIVE); URINE LEUK ESTERASE TRACE (NEGATIVE); URINE NITRITE NEGATIVE (NEGATIVE); URINE PROTEIN NEGATIVE (NEGATIVE); URINE RBC 3 /uL (0-23.9); URINE WBC 12 /uL (0-25.8)
[2020-11-25 15:30] LABS: BASO % 0.3 % (0-2.0); EOS % 1.8 % (0-4.5); HEMATOCRIT 24.1 % (32.4-45.2); HEMOGLOBIN 7.9 GM/dL (10.7-15.3); LYMPH % 33.1 % (8-40); MCH 29.7 pg (25.7-33.7); MCHC 32.9 g/dl (32.0-36.0); MEAN CELL VOLUME 90.1 fl (80-96); MEAN PLT VOLUME 8.1 fl (7.5-11.1); MONO % 9.5 % (3.8-10.2); NEUT % 55.3 % (42.8-82.8); PLATELET COUNT 221 K/MM3 (134-434); RBC 2.67 M/mm3 (3.60-5.2); RDW 13.1 % (11.6-15.6)
[2020-11-25] MEDS ORDERED: ACETAMINOPHEN 325 MG TABLET (FP) PO PRN (16:53)
[2020-11-25] MEDS ORDERED: FUROSEMIDE 40 MG/4 ML INJECTABLE VIAL IVPUSH ONE (16:56)
[2020-11-25] MEDS ORDERED: PANTOPRAZOLE SODIUM 40 MG VIAL IVPUSH ONE (16:56)
[2020-11-25] MEDS ORDERED: PANTOPRAZOLE SODIUM 40 MG/100 ML BAG IVPB ONE ×2 (17:25→22:20)
[2020-11-25] MEDS: D5-1/2NS+20 MEQ KCL - 20 MEQ/1,000 ML INFUS.BAG IV SCH (17:27)
[2020-11-25] MEDS ORDERED: ATORVASTATIN CA 20 MG TABLET (FP) ONE (22:19)
[2020-11-25] MEDS ORDERED: traMADol HCL 50 MG TABLET ONE (22:19)
[2020-11-25] MEDS ORDERED: FUROSEMIDE 40 MG/4 ML INJECTABLE VIAL ONE (22:20)
[2020-11-25] MEDS ORDERED: GABAPENTIN 100 MG CAPSULE ONE (22:20)
[2020-11-25] MEDS: PANTOPRAZOLE SODIUM 40 MG VIAL IVPUSH SCH (22:31)
[2020-11-25] MEDS: traMADol HCL 50 MG TABLET PO SCH (22:31)
[2020-11-25] MEDS: GABAPENTIN 100 MG CAPSULE PO SCH (22:31)
[2020-11-25] MEDS: ATORVASTATIN CA 40 MG TABLET (FP) PO SCH (22:32)
[2020-11-26 00:42] VITALS: BMI 26.6
[2020-11-26] MEDS: GABAPENTIN 100 MG CAPSULE PO SCH ×3 (07:00→22:30)
[2020-11-26 08:37] LABS: BASO % 0.3 % (0-2.0); HEMATOCRIT 29.6 % (32.4-45.2); HEMOGLOBIN 10.1 GM/dL (10.7-15.3); LYMPH % 24.1 % (8-40); MCH 31.1 pg (25.7-33.7); MCHC 34.3 g/dl (32.0-36.0); MEAN CELL VOLUME 90.6 fl (80-96); MEAN PLT VOLUME 8.3 fl (7.5-11.1); NEUT % 63.6 % (42.8-82.8); PLATELET COUNT 215 K/MM3 (134-434); RBC 3.27 M/mm3 (3.60-5.2)
[2020-11-26 09:01] LABS: POTASSIUM 4.4 mmol/L (3.5-5.1)
[2020-11-26 09:02] LABS: ALBUMIN 2.8 g/dl (3.4-5.0); BLOOD UREA NITROGEN 27.1 mg/dL (7-18); CALCIUM 8.7 mg/dL (8.5-10.1); MAGNESIUM 1.9 mg/dL (1.8-2.4)
[2020-11-26 09:05] LABS: CREATININE 0.9 mg/dL (0.55-1.3)
[2020-11-26] MEDS: LIDOCAINE 5% TOPICAL PATCH TP SCH (09:06)
[2020-11-26 09:07] LABS: TOT PROT 6.5 g/dl (6.4-8.2)
[2020-11-26] MEDS: amLODIPine BESYLATE 10 MG TABLET (FP) PO SCH (09:07)
[2020-11-26] MEDS: traMADol HCL 50 MG TABLET PO SCH ×2 (09:07→22:29)
[2020-11-26] MEDS: PANTOPRAZOLE SODIUM 40 MG VIAL IVPUSH SCH (09:09)
[2020-11-26 09:17] LABS: BILIRUBIN,TOTAL 0.5 mg/dL (0.2-1)
[2020-11-26] MEDS: D5-1/2NS+20 MEQ KCL - 20 MEQ/1,000 ML INFUS.BAG IV SCH (18:19)
[2020-11-26] MEDS: ATORVASTATIN CA 40 MG TABLET (FP) PO SCH (22:29)
[2020-11-27] MEDS: GABAPENTIN 100 MG CAPSULE PO SCH ×3 (06:36→21:30)
[2020-11-27 08:25] LABS: POTASSIUM 4.8 mmol/L (3.5-5.1)
[2020-11-27 08:26] LABS: BASO % 0.2 % (0-2.0); EOS % 3.1 % (0-4.5); HEMATOCRIT 28.5 % (32.4-45.2); HEMOGLOBIN 9.7 GM/dL (10.7-15.3); LYMPH % 28.1 % (8-40); MCH 30.8 pg (25.7-33.7); MCHC 34.1 g/dl (32.0-36.0); MEAN CELL VOLUME 90.3 fl (80-96); MEAN PLT VOLUME 7.9 fl (7.5-11.1); MONO % 11.5 % (3.8-10.2); NEUT % 57.1 % (42.8-82.8); PLATELET COUNT 232 K/MM3 (134-434); RBC 3.16 M/mm3 (3.60-5.2); RDW 13.2 % (11.6-15.6); WHITE BLOOD COUNT 6.2 K/mm3 (4.0-10.0)
[2020-11-27 08:34] LABS: CALCIUM 8.6 mg/dL (8.5-10.1)
[2020-11-27 08:35] LABS: ALBUMIN 2.6 g/dl (3.4-5.0); BLOOD UREA NITROGEN 18.9 mg/dL (7-18)
[2020-11-27] MEDS: D5-1/2NS+20 MEQ KCL - 20 MEQ/1,000 ML INFUS.BAG IV SCH (08:36)
[2020-11-27 08:39] LABS: BILIRUBIN,TOTAL 0.8 mg/dL (0.2-1); CREATININE 0.9 mg/dL (0.55-1.3); TOT PROT 6.2 g/dl (6.4-8.2)
[2020-11-27] MEDS: LIDOCAINE 5% TOPICAL PATCH TP SCH (09:21)
[2020-11-27] MEDS: traMADol HCL 50 MG TABLET PO SCH ×2 (09:22→21:27)
[2020-11-27] MEDS: amLODIPine BESYLATE 10 MG TABLET (FP) PO SCH (09:23)
[2020-11-27] MEDS: PANTOPRAZOLE 20 MG TABLET PO SCH (09:23)
[2020-11-27] MEDS: ATORVASTATIN CA 40 MG TABLET (FP) PO SCH (21:30)
[2020-11-28] MEDS: GABAPENTIN 100 MG CAPSULE PO SCH ×2 (06:09→13:46)
[2020-11-28] MEDS ORDERED: SODIUM CHLORIDE NASAL SPRAY 44 ML BOTTLE NS PRN (08:39)
[2020-11-28 09:47] LABS: BASO % 0.2 % (0-2.0); EOS % 2.7 % (0-4.5); HEMATOCRIT 29.8 % (32.4-45.2); HEMOGLOBIN 9.9 GM/dL (10.7-15.3); LYMPH % 27.8 % (8-40); MCH 30.5 pg (25.7-33.7); MCHC 33.2 g/dl (32.0-36.0); MEAN CELL VOLUME 91.6 fl (80-96); MEAN PLT VOLUME 8.1 fl (7.5-11.1); MONO % 8.6 % (3.8-10.2); NEUT % 60.7 % (42.8-82.8); PLATELET COUNT 249 K/MM3 (134-434); RBC 3.25 M/mm3 (3.60-5.2); RDW 13.6 % (11.6-15.6); WHITE BLOOD COUNT 6.9 K/mm3 (4.0-10.0)
[2020-11-28] MEDS: traMADol HCL 50 MG TABLET PO SCH (09:50)
[2020-11-28] MEDS: PANTOPRAZOLE 20 MG TABLET PO SCH (09:50)
[2020-11-28] MEDS: amLODIPine BESYLATE 10 MG TABLET (FP) PO SCH (09:50)
[2020-11-28] MEDS: LIDOCAINE 5% TOPICAL PATCH TP SCH (09:52)
[2020-11-28] MEDS ORDERED: FLUTICASONE PROP 0.05% 16 GM NASAL SPRAY NS SCH (10:00)
[2020-11-28] MEDS ORDERED: LORATADINE 10 MG TABLET PO SCH (10:00)
[2020-11-28 21:47] VITALS: BP 160/75; PULSE 69; TEMP 99
== END 2020-11-28 21:48 | DRG 378 ==
LOC: JER 09:30 → JERBED 14:27 → J6S 11-26 00:03
PROVIDERS: ADMIT Family Medicine; ATTEND Family Medicine
PROC: 30233N1 Transfusion of Nonautologous Red Blood Cells into Peripheral Vein, Percutaneous Approach (ICD-10-PCS; principal; 2020-11-25)
DX: K57.91 Diverticulosis of intestine, part unspecified, without perforation or abscess with bleeding (principal); N17.9 Acute kidney failure, unspecified; E87.3 Alkalosis; I10 Essential (primary) hypertension; E78.5 Hyperlipidemia, unspecified; F32.9 Major depressive disorder, single episode, unspecified; E11.51 Type 2 diabetes mellitus with diabetic peripheral angiopathy without gangrene; M19.90 Unspecified osteoarthritis, unspecified site; K21.9 Gastro-esophageal reflux disease without esophagitis; R51.9 Headache, unspecified; K64.8 Other hemorrhoids; K63.5 Polyp of colon; J32.9 Chronic sinusitis, unspecified; Z43.4 Encounter for attention to other artificial openings of digestive tract; Z89.511 Acquired absence of right leg below knee
CPT/HCPCS: 36415; 36430; 70450-TC; 71045-TC-FY; 72040-TC; 74177-TC; 80053; 81003; 82272; 83735; 84443; 85025; 85610; 85730; 86850; 86900; 86901; 86922; 87086; 87186; 93005; 93010; 99285-25; C9803; J0131; P9058; Q9967; U0003

== ENCOUNTER → 2021-04-15 | Day surgery (SDC) | payer OTHER | END | disposition home or self-care (01) | LOC: JRADIR 10:48 | PROVIDERS: ATTEND Surgery | PROC: 0FP430Z Removal of Drainage Device from Gallbladder, Percutaneous Approach (ICD-10-PCS; principal; 2021-04-15) | DX: T85.9XXA Unspecified complication of internal prosthetic device, implant and graft, initial encounter (principal); K81.9 Cholecystitis, unspecified | CPT/HCPCS: 49424; 76080-FY ==

== ENCOUNTER 2021-07-06 16:22 | Inpatient (IN) | payer OTHER ==
[2021-07-06 18:47] LABS: CHLORIDE 100 mmol/L (98-107); SODIUM 138 mmol/L (136-145)
[2021-07-06 18:50] LABS: ALBUMIN 2.3 g/dl (3.4-5.0); ANION GAP 4 MMOL/L (8-16); BLOOD UREA NITROGEN 18.4 mg/dL (7-18); CALCIUM 8.8 mg/dL (8.5-10.1); CO2 34 mmol/L (21-32); GLUCOSE,RANDOM 217 mg/dL (74-106)
[2021-07-06 18:53] LABS: CREATININE 0.7 mg/dL (0.55-1.3); SGOT/AST 24 U/L (15-37); SGPT/ALT 35 U/L (13-61)
[2021-07-06 18:55] LABS: BILIRUBIN,TOTAL 0.3 mg/dL (0.2-1); TOT PROT 7.7 g/dl (6.4-8.2)
[2021-07-06 18:56] LABS: ALK PHOS 119 U/L (45-117)
[2021-07-06 19:03] LABS: EPI CELLS 5 /uL (0-25.1); HYALINE CASTS 9 /uL (0-3.1); URINE APPEARANCE TURBID; URINE BACTERIA >9,000 /uL (0-1359); URINE BILIRUBIN NEGATIVE (NEGATIVE); URINE COLOR YELLOW; URINE GLUCOSE (UA) 2+ (NEGATIVE); URINE KETONE NEGATIVE (NEGATIVE); URINE LEUK ESTERASE 2+ (NEGATIVE); URINE NITRITE POSITIVE (NEGATIVE); URINE PROTEIN 3+ (NEGATIVE); URINE RBC 34 /uL (0-23.9); URINE WBC 476 /uL (0-25.8)
[2021-07-06] MEDS ORDERED: CEFTRIAXONE 1 GM in DEXTROSE 5%-WATER - 100 ML IVPB ONE (19:04)
[2021-07-06 19:07] LABS: BASO % 0.1 % (0-2.0); EOS % 1.3 % (0-4.5); HEMOGLOBIN 10.9 GM/dL (10.7-15.3); LYMPH % 17.9 % (8-40); MCH 26.5 pg (25.7-33.7); MCHC 32.2 g/dl (32.0-36.0); MEAN CELL VOLUME 82.3 fl (80-96); MEAN PLT VOLUME 8.3 fl (7.5-11.1); MONO % 11.8 % (3.8-10.2); NEUT % 68.9 % (42.8-82.8); PLATELET COUNT 241 10^3/uL (134-434); RBC 4.12 M/mm3 (3.60-5.2); RDW 14.8 % (11.6-15.6); WHITE BLOOD COUNT 8.1 K/mm3 (4.0-10.0)
[2021-07-06 19:08] LABS: URINE AMPHETAMINES NEGATIVE (NEGATIVE); URINE BARBITURATES NEGATIVE (NEGATIVE)
[2021-07-06 19:09] LABS: METHADONE, UR NEGATIVE (NEGATIVE); OPIATES, URI NEGATIVE (NEGATIVE); PHENCYCLIDINE,URINE NEGATIVE (NEGATIVE); URINE BENZODIAZEPINES NEGATIVE (NEGATIVE)
[2021-07-06 19:19] LABS: COCAINE, UR NEGATIVE (NEGATIVE); LACTIC ACID 2.2 mmol/L (0.4-2.0)
[2021-07-06] MEDS ORDERED: CEFTRIAXONE 1 GM/50 ML BAG ONE (19:29)
[2021-07-06] MEDS ORDERED: SODIUM CHLORIDE 0.9% 500 ML INFUS.BAG IV ONE (20:43)
[2021-07-06] MEDS ORDERED: ACETAMINOPHEN 500 MG TABLET (FP) PO PRN (21:09)
[2021-07-06] MEDS ORDERED: SODIUM CHLORIDE NASAL SPRAY 44 ML BOTTLE NS PRN (21:09)
[2021-07-06] MEDS ORDERED: SENNOSIDES 8.6MG TABLET (FP) PO PRN (21:23)
[2021-07-06] MEDS ORDERED: ACETAMINOPHEN 325 MG TABLET (FP) PO PRN ×2 (21:39)
[2021-07-06] MEDS ORDERED: ATORVASTATIN CA 20 MG TABLET (FP) ONE (22:23)
[2021-07-06] MEDS ORDERED: risperiDONE 0.5 MG TABLET ONE (22:23)
[2021-07-06] MEDS: METHYL SALICYLATE/MENTHOL OINT 30 GM TUBE TP SCH (22:45)
[2021-07-06] MEDS: GABAPENTIN 400 MG CAPSULE PO SCH (22:45)
[2021-07-06] MEDS: ATORVASTATIN CA 20 MG TABLET (FP) PO SCH (22:45)
[2021-07-06] MEDS: risperiDONE 0.5 MG TABLET PO SCH (22:45)
[2021-07-06] MEDS: INSULIN SLIDING SCALE (NOVOLOG) 1 VIAL SQ SCH (22:48)
[2021-07-07] MEDS: INSULIN SLIDING SCALE (NOVOLOG) 1 VIAL SQ SCH ×4 (06:07→21:59)
[2021-07-07 08:38] LABS: BASO % 0.3 % (0-2.0); EOS % 1.5 % (0-4.5); HEMATOCRIT 30.4 % (32.4-45.2); HEMOGLOBIN 9.7 GM/dL (10.7-15.3); LYMPH % 23.7 % (8-40); MCH 26.8 pg (25.7-33.7); MEAN CELL VOLUME 83.8 fl (80-96); MEAN PLT VOLUME 8.4 fl (7.5-11.1); MONO % 10.3 % (3.8-10.2); NEUT % 64.2 % (42.8-82.8); PLATELET COUNT 213 10^3/uL (134-434); RBC 3.62 M/mm3 (3.60-5.2); RDW 14.8 % (11.6-15.6); WHITE BLOOD COUNT 6.4 K/mm3 (4.0-10.0)
[2021-07-07 09:10] LABS: BLOOD UREA NITROGEN 18.7 mg/dL (7-18)
[2021-07-07 09:11] LABS: CALCIUM 8.3 mg/dL (8.5-10.1)
[2021-07-07 09:13] LABS: CREATININE 0.6 mg/dL (0.55-1.3)
[2021-07-07] MEDS ORDERED: PATIENT'S OWN MEDICATION (NON-FORMULARY) (Lidocaine [Lidocaine] 1 EACH Adh..Patch) TP SCH (10:00)
[2021-07-07] MEDS: ENOXAPARIN NA (PORCINE) 40 MG/0.4 ML DISP.SYRIN SQ SCH (11:29)
[2021-07-07] MEDS: oxyCODONE HCL 5 MG TABLET PO PRN (11:29)
[2021-07-07] MEDS: POLYETHYLENE GLYCOL (HEALTHYLAX) 3350 17 GM PACKET PO SCH (11:29)
[2021-07-07] MEDS: LORATADINE 10 MG TABLET PO SCH (11:29)
[2021-07-07] MEDS: FAMOTIDINE 20 MG TABLET PO SCH (11:31)
[2021-07-07] MEDS: GABAPENTIN 400 MG CAPSULE PO SCH ×2 (11:31→21:57)
[2021-07-07] MEDS: amLODIPine BESYLATE 10 MG TABLET (FP) PO SCH (11:32)
[2021-07-07] MEDS: MULTIVITAMINS (DAILY MVI) TABLET (FP) PO SCH (11:32)
[2021-07-07] MEDS: LIDOCAINE 5% TOPICAL PATCH TP SCH (11:32)
[2021-07-07] MEDS ORDERED: PT OWN MED DRAWER 7, Y5N ONE ×3 (11:34→21:37)
[2021-07-07] MEDS: FLUTICASONE PROP 0.05% 16 GM NASAL SPRAY NS SCH ×2 (11:43→21:58)
[2021-07-07] MEDS: risperiDONE 0.5 MG TABLET PO SCH ×2 (11:44→22:05)
[2021-07-07] MEDS: METHYL SALICYLATE/MENTHOL OINT 30 GM TUBE TP SCH ×2 (11:45→21:58)
[2021-07-07] MEDS: DULoxetine HCL 30 MG CAPSULE.DR PO SCH (11:45)
[2021-07-07] MEDS: ATORVASTATIN CA 20 MG TABLET (FP) PO SCH (21:58)
[2021-07-07] MEDS: LIDOCAINE PATCH REMOVAL MC SCH (21:58)
[2021-07-08] MEDS: INSULIN SLIDING SCALE (NOVOLOG) 1 VIAL SQ SCH ×4 (06:20→22:37)
[2021-07-08] MEDS ORDERED: PT OWN MED DRAWER 7, Y5N ONE ×2 (09:25→22:02)
[2021-07-08] MEDS: amLODIPine BESYLATE 10 MG TABLET (FP) PO SCH (09:51)
[2021-07-08] MEDS: LORATADINE 10 MG TABLET PO SCH (09:52)
[2021-07-08] MEDS: FAMOTIDINE 20 MG TABLET PO SCH (09:52)
[2021-07-08] MEDS: MULTIVITAMINS (DAILY MVI) TABLET (FP) PO SCH (09:52)
[2021-07-08] MEDS: LIDOCAINE 5% TOPICAL PATCH TP SCH (09:52)
[2021-07-08] MEDS: GABAPENTIN 400 MG CAPSULE PO SCH ×2 (09:52→22:33)
[2021-07-08] MEDS: risperiDONE 0.5 MG TABLET PO SCH ×2 (09:52→22:34)
[2021-07-08] MEDS: DULoxetine HCL 30 MG CAPSULE.DR PO SCH (09:52)
[2021-07-08] MEDS: FLUTICASONE PROP 0.05% 16 GM NASAL SPRAY NS SCH ×2 (09:53→22:33)
[2021-07-08] MEDS: POLYETHYLENE GLYCOL (HEALTHYLAX) 3350 17 GM PACKET PO SCH (09:53)
[2021-07-08] MEDS: oxyCODONE HCL 5 MG TABLET PO PRN (09:54)
[2021-07-08] MEDS: ENOXAPARIN NA (PORCINE) 40 MG/0.4 ML DISP.SYRIN SQ SCH (12:04)
[2021-07-08] MEDS ORDERED: cefTRIAXone SODIUM 1 GM VIAL ONE (13:27)
[2021-07-08] MEDS ORDERED: DEXTROSE 5%-WATER - 50 ML IVPB ONE (13:28)
[2021-07-08] MEDS: METHYL SALICYLATE/MENTHOL OINT 30 GM TUBE TP SCH ×2 (14:26→22:33)
[2021-07-08] MEDS: CEFTRIAXONE 1 GM in DEXTROSE 5%-WATER - 50 ML IVPB SCH (14:26)
[2021-07-08 14:44] VITALS: BMI 26.3
[2021-07-08] MEDS: LIDOCAINE PATCH REMOVAL MC SCH (22:33)
[2021-07-08] MEDS: ATORVASTATIN CA 20 MG TABLET (FP) PO SCH (22:33)
[2021-07-09] MEDS: INSULIN SLIDING SCALE (NOVOLOG) 1 VIAL SQ SCH ×4 (06:29→21:04)
[2021-07-09 08:09] LABS: BASO % 0.2 % (0-2.0); EOS % 0.9 % (0-4.5); HEMATOCRIT 29.9 % (32.4-45.2); HEMOGLOBIN 9.6 GM/dL (10.7-15.3); MCH 26.7 pg (25.7-33.7); MCHC 32.1 g/dl (32.0-36.0); MEAN PLT VOLUME 8.5 fl (7.5-11.1); MONO % 9.8 % (3.8-10.2); NEUT % 70.1 % (42.8-82.8); PLATELET COUNT 214 10^3/uL (134-434); RDW 14.6 % (11.6-15.6); WHITE BLOOD COUNT 7.2 K/mm3 (4.0-10.0)
[2021-07-09 08:36] LABS: CALCIUM 8.6 mg/dL (8.5-10.1)
[2021-07-09 08:37] LABS: BLOOD UREA NITROGEN 23.3 mg/dL (7-18)
[2021-07-09 08:40] LABS: CREATININE 0.7 mg/dL (0.55-1.3)
[2021-07-09] MEDS ORDERED: DEXTROSE 5%-WATER - 50 ML IVPB ONE (10:38)
[2021-07-09] MEDS ORDERED: cefTRIAXone SODIUM 1 GM VIAL ONE (10:38)
[2021-07-09] MEDS ORDERED: PT OWN MED DRAWER 7, Y5N ONE ×2 (10:38→20:56)
[2021-07-09] MEDS: CEFTRIAXONE 1 GM in DEXTROSE 5%-WATER - 50 ML IVPB SCH (10:58)
[2021-07-09] MEDS: risperiDONE 0.5 MG TABLET PO SCH ×2 (10:59→21:09)
[2021-07-09] MEDS: LIDOCAINE 5% TOPICAL PATCH TP SCH (10:59)
[2021-07-09] MEDS: FAMOTIDINE 20 MG TABLET PO SCH (10:59)
[2021-07-09] MEDS: amLODIPine BESYLATE 10 MG TABLET (FP) PO SCH (10:59)
[2021-07-09] MEDS: GABAPENTIN 400 MG CAPSULE PO SCH ×2 (10:59→21:09)
[2021-07-09] MEDS: ENOXAPARIN NA (PORCINE) 40 MG/0.4 ML DISP.SYRIN SQ SCH (10:59)
[2021-07-09] MEDS: MULTIVITAMINS (DAILY MVI) TABLET (FP) PO SCH (10:59)
[2021-07-09] MEDS: DULoxetine HCL 30 MG CAPSULE.DR PO SCH (10:59)
[2021-07-09] MEDS: LORATADINE 10 MG TABLET PO SCH (10:59)
[2021-07-09] MEDS: METHYL SALICYLATE/MENTHOL OINT 30 GM TUBE TP SCH ×2 (11:00→21:09)
[2021-07-09] MEDS: POLYETHYLENE GLYCOL (HEALTHYLAX) 3350 17 GM PACKET PO SCH ×3 (11:00→21:14)
[2021-07-09] MEDS: FLUTICASONE PROP 0.05% 16 GM NASAL SPRAY NS SCH ×2 (11:00→21:14)
[2021-07-09] MEDS: oxyCODONE HCL 5 MG TABLET PO PRN (11:09)
[2021-07-09] MEDS ORDERED: oxyCODONE HCL 5 MG TABLET PO PRN ×2 (16:33)
[2021-07-09] MEDS ORDERED: ACETAMINOPHEN 325 MG TABLET (FP) PO PRN (20:32)
[2021-07-09] MEDS: LIDOCAINE PATCH REMOVAL MC SCH (21:09)
[2021-07-09] MEDS: ATORVASTATIN CA 20 MG TABLET (FP) PO SCH ×2 (21:09→21:14)
[2021-07-09] MEDS ORDERED: ACETAMINOPHEN 1000 MG/100 ML VIAL (NON FORMULARY) IVPB ONE (21:19)
[2021-07-10] MEDS: INSULIN SLIDING SCALE (NOVOLOG) 1 VIAL SQ SCH ×4 (06:00→22:32)
[2021-07-10] MEDS: POLYETHYLENE GLYCOL (HEALTHYLAX) 3350 17 GM PACKET PO SCH ×3 (06:01→22:30)
[2021-07-10] MEDS ORDERED: DEXTROSE 5%-WATER - 50 ML IVPB ONE (12:15)
[2021-07-10] MEDS ORDERED: cefTRIAXone SODIUM 1 GM VIAL ONE (12:15)
[2021-07-10 12:27] LABS: BASO % 0.2 % (0-2.0); EOS % 0.7 % (0-4.5); HEMATOCRIT 31.6 % (32.4-45.2); HEMOGLOBIN 10.2 GM/dL (10.7-15.3); LYMPH % 14.5 % (8-40); MCH 26.7 pg (25.7-33.7); MCHC 32.1 g/dl (32.0-36.0); MEAN CELL VOLUME 83.3 fl (80-96); MEAN PLT VOLUME 8.3 fl (7.5-11.1); MONO % 7.9 % (3.8-10.2); NEUT % 76.7 % (42.8-82.8); PLATELET COUNT 221 10^3/uL (134-434); RDW 14.7 % (11.6-15.6); WHITE BLOOD COUNT 7.3 K/mm3 (4.0-10.0)
[2021-07-10 12:59] LABS: BLOOD UREA NITROGEN 31.1 mg/dL (7-18); CALCIUM 8.3 mg/dL (8.5-10.1)
[2021-07-10 13:01] LABS: CREATININE 0.8 mg/dL (0.55-1.3)
[2021-07-10 13:04] LABS: BILIRUBIN,TOTAL 0.3 mg/dL (0.2-1)
[2021-07-10 13:05] LABS: TOT PROT 7.2 g/dl (6.4-8.2)
[2021-07-10 13:10] LABS: ALBUMIN 1.7 g/dl (3.4-5.0)
[2021-07-10] MEDS: FAMOTIDINE 20 MG TABLET PO SCH (13:33)
[2021-07-10] MEDS: amLODIPine BESYLATE 10 MG TABLET (FP) PO SCH (13:33)
[2021-07-10] MEDS: GABAPENTIN 400 MG CAPSULE PO SCH ×2 (13:33→22:31)
[2021-07-10] MEDS: ENOXAPARIN NA (PORCINE) 40 MG/0.4 ML DISP.SYRIN SQ SCH (13:33)
[2021-07-10] MEDS: CEFTRIAXONE 1 GM in DEXTROSE 5%-WATER - 50 ML IVPB SCH (13:33)
[2021-07-10] MEDS: DULoxetine HCL 30 MG CAPSULE.DR PO SCH (13:34)
[2021-07-10] MEDS: MULTIVITAMINS (DAILY MVI) TABLET (FP) PO SCH (13:34)
[2021-07-10] MEDS: LIDOCAINE 5% TOPICAL PATCH TP SCH (13:34)
[2021-07-10] MEDS: risperiDONE 0.5 MG TABLET PO SCH ×2 (13:34→22:32)
[2021-07-10] MEDS: FLUTICASONE PROP 0.05% 16 GM NASAL SPRAY NS SCH ×2 (13:34→22:32)
[2021-07-10] MEDS: LORATADINE 10 MG TABLET PO SCH (13:35)
[2021-07-10] MEDS: METHYL SALICYLATE/MENTHOL OINT 30 GM TUBE TP SCH ×2 (13:36→22:31)
[2021-07-10] MEDS ORDERED: PT OWN MED DRAWER 7, Y5N ONE (21:30)
[2021-07-10] MEDS: ATORVASTATIN CA 20 MG TABLET (FP) PO SCH (22:31)
[2021-07-10] MEDS: LIDOCAINE PATCH REMOVAL MC SCH (22:33)
[2021-07-11] MEDS: POLYETHYLENE GLYCOL (HEALTHYLAX) 3350 17 GM PACKET PO SCH ×3 (05:57→21:31)
[2021-07-11] MEDS: INSULIN SLIDING SCALE (NOVOLOG) 1 VIAL SQ SCH ×4 (06:02→21:32)
[2021-07-11] MEDS ORDERED: cefTRIAXone SODIUM 1 GM VIAL ONE (09:18)
[2021-07-11] MEDS ORDERED: DEXTROSE 5%-WATER - 50 ML IVPB ONE (09:20)
[2021-07-11 09:21] LABS: BASO % 0.2 % (0-2.0); EOS % 1.6 % (0-4.5); HEMATOCRIT 29.9 % (32.4-45.2); HEMOGLOBIN 9.6 GM/dL (10.7-15.3); LYMPH % 17.8 % (8-40); MCH 26.5 pg (25.7-33.7); MCHC 32.2 g/dl (32.0-36.0); MEAN CELL VOLUME 82.3 fl (80-96); MEAN PLT VOLUME 8.6 fl (7.5-11.1); MONO % 9.7 % (3.8-10.2); NEUT % 70.7 % (42.8-82.8); PLATELET COUNT 224 10^3/uL (134-434); RBC 3.63 M/mm3 (3.60-5.2); RDW 14.7 % (11.6-15.6); WHITE BLOOD COUNT 5.8 K/mm3 (4.0-10.0)
[2021-07-11] MEDS: amLODIPine BESYLATE 10 MG TABLET (FP) PO SCH (09:22)
[2021-07-11] MEDS: CEFTRIAXONE 1 GM in DEXTROSE 5%-WATER - 50 ML IVPB SCH (09:22)
[2021-07-11] MEDS: GABAPENTIN 400 MG CAPSULE PO SCH ×2 (09:22→21:32)
[2021-07-11] MEDS: ENOXAPARIN NA (PORCINE) 40 MG/0.4 ML DISP.SYRIN SQ SCH (09:22)
[2021-07-11] MEDS: MULTIVITAMINS (DAILY MVI) TABLET (FP) PO SCH (09:22)
[2021-07-11] MEDS: FAMOTIDINE 20 MG TABLET PO SCH (09:22)
[2021-07-11] MEDS: LIDOCAINE 5% TOPICAL PATCH TP SCH (09:22)
[2021-07-11] MEDS: LORATADINE 10 MG TABLET PO SCH (09:22)
[2021-07-11] MEDS: METHYL SALICYLATE/MENTHOL OINT 30 GM TUBE TP SCH ×2 (09:24→21:31)
[2021-07-11] MEDS: FLUTICASONE PROP 0.05% 16 GM NASAL SPRAY NS SCH ×2 (09:27→21:31)
[2021-07-11] MEDS: risperiDONE 0.5 MG TABLET PO SCH ×2 (09:29→21:32)
[2021-07-11] MEDS ORDERED: PT OWN MED DRAWER 7, Y5N ONE (09:29)
[2021-07-11] MEDS: DULoxetine HCL 30 MG CAPSULE.DR PO SCH (09:30)
[2021-07-11 09:52] LABS: ALBUMIN 1.8 g/dl (3.4-5.0); BLOOD UREA NITROGEN 24.2 mg/dL (7-18); CALCIUM 8.3 mg/dL (8.5-10.1); MAGNESIUM 2.4 mg/dL (1.8-2.4)
[2021-07-11 09:55] LABS: CREATININE 0.6 mg/dL (0.55-1.3)
[2021-07-11 09:56] LABS: BILIRUBIN,TOTAL 0.3 mg/dL (0.2-1); TOT PROT 6.9 g/dl (6.4-8.2)
[2021-07-11] MEDS: LIDOCAINE PATCH REMOVAL MC SCH (21:31)
[2021-07-11] MEDS: ATORVASTATIN CA 20 MG TABLET (FP) PO SCH (21:32)
[2021-07-12] MEDS ORDERED: PT OWN MED DRAWER 7, Y5N ONE (05:01)
[2021-07-12] MEDS: POLYETHYLENE GLYCOL (HEALTHYLAX) 3350 17 GM PACKET PO SCH ×2 (05:57→14:45)
[2021-07-12] MEDS: INSULIN SLIDING SCALE (NOVOLOG) 1 VIAL SQ SCH ×3 (06:05→17:53)
[2021-07-12 09:05] LABS: BASO % 0.1 % (0-2.0); EOS % 2.1 % (0-4.5); HEMATOCRIT 29.4 % (32.4-45.2); HEMOGLOBIN 9.6 GM/dL (10.7-15.3); LYMPH % 23.1 % (8-40); MCH 26.8 pg (25.7-33.7); MCHC 32.7 g/dl (32.0-36.0); MEAN CELL VOLUME 82.1 fl (80-96); MEAN PLT VOLUME 8.1 fl (7.5-11.1); MONO % 9.5 % (3.8-10.2); NEUT % 65.2 % (42.8-82.8); PLATELET COUNT 238 10^3/uL (134-434); RBC 3.58 M/mm3 (3.60-5.2); RDW 14.6 % (11.6-15.6); WHITE BLOOD COUNT 5.7 K/mm3 (4.0-10.0)
[2021-07-12 09:37] LABS: ALBUMIN 1.6 g/dl (3.4-5.0); MAGNESIUM 1.8 mg/dL (1.8-2.4)
[2021-07-12 09:40] LABS: CREATININE 0.5 mg/dL (0.55-1.3)
[2021-07-12 09:41] LABS: BILIRUBIN,TOTAL 0.2 mg/dL (0.2-1)
[2021-07-12 09:42] LABS: TOT PROT 6.7 g/dl (6.4-8.2)
[2021-07-12] MEDS ORDERED: ACETAMINOPHEN 500 MG TABLET (FP) PO SCH (10:00)
[2021-07-12] MEDS ORDERED: DEXTROSE 5%-WATER - 50 ML IVPB ONE (11:10)
[2021-07-12] MEDS ORDERED: cefTRIAXone SODIUM 1 GM VIAL ONE (11:10)
[2021-07-12] MEDS: GABAPENTIN 400 MG CAPSULE PO SCH (11:19)
[2021-07-12] MEDS: CEFTRIAXONE 1 GM in DEXTROSE 5%-WATER - 50 ML IVPB SCH (11:20)
[2021-07-12] MEDS: amLODIPine BESYLATE 10 MG TABLET (FP) PO SCH (11:20)
[2021-07-12] MEDS: LIDOCAINE 5% TOPICAL PATCH TP SCH (11:20)
[2021-07-12] MEDS: LORATADINE 10 MG TABLET PO SCH (11:20)
[2021-07-12] MEDS: MULTIVITAMINS (DAILY MVI) TABLET (FP) PO SCH (11:20)
[2021-07-12] MEDS: FLUTICASONE PROP 0.05% 16 GM NASAL SPRAY NS SCH (11:24)
[2021-07-12] MEDS: ENOXAPARIN NA (PORCINE) 40 MG/0.4 ML DISP.SYRIN SQ SCH (11:24)
[2021-07-12] MEDS: METHYL SALICYLATE/MENTHOL OINT 30 GM TUBE TP SCH (11:25)
[2021-07-12] MEDS: FAMOTIDINE 20 MG TABLET PO SCH (11:25)
[2021-07-12] MEDS: risperiDONE 0.5 MG TABLET PO SCH (11:26)
[2021-07-12] MEDS: DULoxetine HCL 30 MG CAPSULE.DR PO SCH (11:26)
[2021-07-12 15:21] VITALS: BP 146/58; PULSE 66; TEMP 98.3
== END 2021-07-12 18:35 | DRG 689 ==
LOC: JER 16:22 → JERBED 19:17 → J5S 07-07 02:01
PROVIDERS: ADMIT Internal Medicine; ATTEND Family Medicine
DX: N39.0 Urinary tract infection, site not specified (principal); G93.41 Metabolic encephalopathy; I50.32 Chronic diastolic (congestive) heart failure; N17.9 Acute kidney failure, unspecified; K56.7 Ileus, unspecified; B96.20 Unspecified Escherichia coli [E. coli] as the cause of diseases classified elsewhere; E11.51 Type 2 diabetes mellitus with diabetic peripheral angiopathy without gangrene; E78.5 Hyperlipidemia, unspecified; I44.0 Atrioventricular block, first degree; F32.A Depression, unspecified; K57.90 Diverticulosis of intestine, part unspecified, without perforation or abscess without bleeding; K59.00 Constipation, unspecified; R14.0 Abdominal distension (gaseous); D64.9 Anemia, unspecified; I11.0 Hypertensive heart disease with heart failure; Z88.0 Allergy status to penicillin; Z89.511 Acquired absence of right leg below knee
CPT/HCPCS: 36415; 70450-TC; 71045-TC-FY; 73030-TC-RT-FY; 73523-TC-FY; 74019-TC-FY; 80048; 80053; 80307; 81003; 82272; 82550; 82553; 82962; 83540; 83550; 83605; 83735; 84100; 84484; 85025; 87040; 87086; 87186; 93005; 93010; 97162-GP; 99285-25; C9803; J0131; U0003; U0005

== ENCOUNTER 2021-07-22 13:35 | Inpatient (IN) | payer OTHER ==
[2021-07-22 15:39] LABS: BASO % 0.2 % (0-2.0); EOS % 0.7 % (0-4.5); HEMATOCRIT 34.1 % (32.4-45.2); HEMOGLOBIN 10.9 GM/dL (10.7-15.3); LYMPH % 18.8 % (8-40); MCH 26.2 pg (25.7-33.7); MCHC 31.9 g/dl (32.0-36.0); MEAN CELL VOLUME 82.2 fl (80-96); MEAN PLT VOLUME 7.8 fl (7.5-11.1); MONO % 7.3 % (3.8-10.2); PLATELET COUNT 387 10^3/uL (134-434); RBC 4.15 M/mm3 (3.60-5.2); RDW 15.3 % (11.6-15.6); WHITE BLOOD COUNT 7.4 K/mm3 (4.0-10.0)
[2021-07-22 15:45] LABS: URINE APPEARANCE CLOUDY; URINE BILIRUBIN NEGATIVE (NEGATIVE); URINE COLOR YELLOW; URINE GLUCOSE (UA) NEGATIVE (NEGATIVE); URINE KETONE NEGATIVE (NEGATIVE)
[2021-07-22 15:46] LABS: URINE LEUK ESTERASE 3+ (NEGATIVE); URINE NITRITE NEGATIVE (NEGATIVE); URINE PROTEIN 1+ (NEGATIVE)
[2021-07-22 15:50] LABS: URINE RBC 8 /hpf (0-4); URINE WBC 50 (NEGATIVE)
[2021-07-22 15:51] LABS: EPI CELLS 10 /HPF; HYALINE CASTS NEGATIVE /lpf; URINE BACTERIA MANY /hpf (NEGATIVE)
[2021-07-22 15:52] LABS: URINE CRYSTALS NEGATIVE /hpf; YEAST NEGATIVE (NEGATIVE)
[2021-07-22 15:57] LABS: CHLORIDE 102 mmol/L (98-107); SODIUM 139 mmol/L (136-145)
[2021-07-22 15:59] LABS: CALCIUM 8.9 mg/dL (8.5-10.1)
[2021-07-22 16:00] LABS: ALBUMIN 1.8 g/dl (3.4-5.0); ANION GAP 9 MMOL/L (8-16); CO2 29 mmol/L (21-32); GLUCOSE,RANDOM 299 mg/dL (74-106); LIPASE 127 U/L (73-393)
[2021-07-22] MEDS ORDERED: MEROPENEM 1 GM in DEXTROSE 5%-WATER 100 ML IVPB ONE (16:02)
[2021-07-22 16:03] LABS: CREATININE 0.8 mg/dL (0.55-1.3); SGOT/AST 32 U/L (15-37); SGPT/ALT 27 U/L (13-61)
[2021-07-22 16:04] LABS: BILIRUBIN,TOTAL 0.2 mg/dL (0.2-1)
[2021-07-22 16:05] LABS: TOT PROT 7.4 g/dl (6.4-8.2)
[2021-07-22 16:06] LABS: ALK PHOS 110 U/L (45-117)
[2021-07-22 16:08] LABS: N-TERMINAL BNP 83.1 pg/ml (5-450)
[2021-07-22] MEDS ORDERED: MEROPENEM 1 GM VIAL (RESTRICTED TO ID) IVPB ONE (16:10)
[2021-07-22] MEDS: DOCUSATE SODIUM 100 MG CAPSULE (FP) PO SCH (23:40)
[2021-07-22] MEDS: INSULIN SLIDING SCALE (NOVOLOG) 1 VIAL SQ SCH (23:40)
[2021-07-23] MEDS ORDERED: POLYETHYLENE GLYCOL (HEALTHYLAX) 3350 17 GM PACKET PO SCH (06:00)
[2021-07-23] MEDS ORDERED: MEROPENEM 1 GM in DEXTROSE 5%-WATER 100 ML IVPB SCH (06:00)
[2021-07-23] MEDS ORDERED: MEROPENEM 1 GM VIAL (RESTRICTED TO ID) IVPB ONE (06:23)
[2021-07-23] MEDS ORDERED: DEXTROSE 5%-WATER 100 ML IVPB ONE (06:24)
[2021-07-23] MEDS: INSULIN SLIDING SCALE (NOVOLOG) 1 VIAL SQ SCH ×4 (06:40→22:05)
[2021-07-23] MEDS ORDERED: ACETAMINOPHEN 325 MG TABLET (FP) PO PRN (07:30)
[2021-07-23 07:39] LABS: BASO % 0.2 % (0-2.0); EOS % 0.6 % (0-4.5); HEMATOCRIT 33.3 % (32.4-45.2); HEMOGLOBIN 10.7 GM/dL (10.7-15.3); LYMPH % 17.8 % (8-40); MCH 26.2 pg (25.7-33.7); MCHC 32.1 g/dl (32.0-36.0); MEAN CELL VOLUME 81.7 fl (80-96); MEAN PLT VOLUME 8.1 fl (7.5-11.1); MONO % 5.6 % (3.8-10.2); NEUT % 75.8 % (42.8-82.8); PLATELET COUNT 407 10^3/uL (134-434); RBC 4.08 M/mm3 (3.60-5.2); WHITE BLOOD COUNT 8.3 K/mm3 (4.0-10.0)
[2021-07-23 07:46] LABS: INR 1.13 (0.83-1.09); PROTHROMBIN TIME (PATIENT) 12.7 SEC (9.7-13.0)
[2021-07-23 07:48] LABS: ACTIVATED PTT 26.6 SECONDS (25.2-36.5)
[2021-07-23 08:24] LABS: BLOOD UREA NITROGEN 17.6 mg/dL (7-18)
[2021-07-23 08:26] LABS: CREATININE 0.5 mg/dL (0.55-1.3)
[2021-07-23] MEDS: MULTIVITAMINS (DAILY MVI) TABLET (FP) PO SCH (09:40)
[2021-07-23] MEDS: amLODIPine BESYLATE 5 MG TABLET (FP) PO SCH (09:40)
[2021-07-23] MEDS: LIDOCAINE 5% TOPICAL PATCH TP SCH (09:40)
[2021-07-23] MEDS: GABAPENTIN 400 MG CAPSULE PO SCH ×2 (09:40→22:05)
[2021-07-23] MEDS: LORATADINE 10 MG TABLET PO SCH (09:41)
[2021-07-23] MEDS: ENOXAPARIN NA (PORCINE) 40 MG/0.4 ML DISP.SYRIN SQ SCH (09:41)
[2021-07-23] MEDS ORDERED: PT OWN MED DRAWER 7, Y5N ONE ×3 (09:44→20:52)
[2021-07-23] MEDS: METHYL SALICYLATE/MENTHOL OINT 30 GM TUBE TP SCH ×2 (09:45→22:00)
[2021-07-23] MEDS ORDERED: PATIENT'S OWN MEDICATION (NON-FORMULARY) (Lidocaine [Aspercreme Lidocaine] 1 EACH Adh..Pat TP SCH (10:00)
[2021-07-23] MEDS: FLUTICASONE PROP 0.05% 16 GM NASAL SPRAY NS SCH ×2 (11:15→22:01)
[2021-07-23] MEDS: risperiDONE 0.5 MG TABLET PO SCH ×2 (11:15→21:59)
[2021-07-23] MEDS: DULoxetine HCL 20 MG CAPSULE.DR PO SCH (11:20)
[2021-07-23] MEDS: DEXTROSE 5%-0.45% SALINE 1,000 ML IV SCH (13:43)
[2021-07-23] MEDS: ERTAPENEM SODIUM 1 GM in SODIUM CHLORIDE 50 ML IVPB SCH (13:43)
[2021-07-23] MEDS: POLYETHYLENE GLYCOL (HEALTHYLAX) 3350 17 GM PACKET PO SCH (22:00)
[2021-07-23] MEDS: LIDOCAINE PATCH REMOVAL MC SCH (22:00)
[2021-07-23] MEDS: SENNOSIDES 8.6MG TABLET (FP) PO SCH (22:00)
[2021-07-23] MEDS: DOCUSATE SODIUM 100 MG CAPSULE (FP) PO SCH (22:00)
[2021-07-23] MEDS: ATORVASTATIN CA 20 MG TABLET (FP) PO SCH (22:00)
[2021-07-24] MEDS: POLYETHYLENE GLYCOL (HEALTHYLAX) 3350 17 GM PACKET PO SCH ×4 (05:22→21:49)
[2021-07-24] MEDS: INSULIN SLIDING SCALE (NOVOLOG) 1 VIAL SQ SCH ×4 (06:26→21:44)
[2021-07-24] MEDS: DEXTROSE 5%-0.45% SALINE 1,000 ML IV SCH ×2 (06:33→13:31)
[2021-07-24 09:39] LABS: BASO % 0.2 % (0-2.0); EOS % 1.8 % (0-4.5); HEMATOCRIT 31.2 % (32.4-45.2); HEMOGLOBIN 10.2 GM/dL (10.7-15.3); LYMPH % 25.2 % (8-40); MCH 26.8 pg (25.7-33.7); MCHC 32.7 g/dl (32.0-36.0); MEAN PLT VOLUME 7.7 fl (7.5-11.1); MONO % 9.7 % (3.8-10.2); NEUT % 63.1 % (42.8-82.8); PLATELET COUNT 350 10^3/uL (134-434); RDW 15.2 % (11.6-15.6); WHITE BLOOD COUNT 6.8 K/mm3 (4.0-10.0)
[2021-07-24] MEDS ORDERED: PT OWN MED DRAWER 7, Y5N ONE (10:46)
[2021-07-24] MEDS: LIDOCAINE 5% TOPICAL PATCH TP SCH (10:49)
[2021-07-24] MEDS: risperiDONE 0.5 MG TABLET PO SCH ×2 (10:49→21:49)
[2021-07-24] MEDS: amLODIPine BESYLATE 5 MG TABLET (FP) PO SCH (10:49)
[2021-07-24] MEDS: LORATADINE 10 MG TABLET PO SCH (10:49)
[2021-07-24] MEDS: GABAPENTIN 400 MG CAPSULE PO SCH ×2 (10:49→21:49)
[2021-07-24] MEDS: MULTIVITAMINS (DAILY MVI) TABLET (FP) PO SCH (10:49)
[2021-07-24] MEDS: DULoxetine HCL 20 MG CAPSULE.DR PO SCH (10:50)
[2021-07-24] MEDS: ENOXAPARIN NA (PORCINE) 40 MG/0.4 ML DISP.SYRIN SQ SCH (10:55)
[2021-07-24] MEDS: ERTAPENEM SODIUM 1 GM in SODIUM CHLORIDE 50 ML IVPB SCH (10:55)
[2021-07-24] MEDS: FLUTICASONE PROP 0.05% 16 GM NASAL SPRAY NS SCH ×2 (10:55→21:48)
[2021-07-24] MEDS: METHYL SALICYLATE/MENTHOL OINT 30 GM TUBE TP SCH ×2 (11:10→21:48)
[2021-07-24 11:11] LABS: BLOOD UREA NITROGEN 17.3 mg/dL (7-18); CALCIUM 8.8 mg/dL (8.5-10.1)
[2021-07-24 11:15] LABS: CREATININE 0.7 mg/dL (0.55-1.3)
[2021-07-24] MEDS: DOCUSATE SODIUM 100 MG CAPSULE (FP) PO SCH (21:48)
[2021-07-24] MEDS: SENNOSIDES 8.6MG TABLET (FP) PO SCH (21:49)
[2021-07-24] MEDS: LIDOCAINE PATCH REMOVAL MC SCH (21:49)
[2021-07-24] MEDS: ATORVASTATIN CA 20 MG TABLET (FP) PO SCH (21:49)
[2021-07-25] MEDS: INSULIN SLIDING SCALE (NOVOLOG) 1 VIAL SQ SCH ×4 (06:31→21:43)
[2021-07-25] MEDS: POLYETHYLENE GLYCOL (HEALTHYLAX) 3350 17 GM PACKET PO SCH ×3 (06:32→21:41)
[2021-07-25] MEDS: DEXTROSE 5%-0.45% SALINE 1,000 ML IV SCH ×2 (06:35→12:46)
[2021-07-25] MEDS ORDERED: INSULIN SLIDING SCALE (NOVOLOG) 1 VIAL SQ ONE (07:04)
[2021-07-25] MEDS ORDERED: PT OWN MED DRAWER 7, Y5N ONE (09:08)
[2021-07-25] MEDS: amLODIPine BESYLATE 5 MG TABLET (FP) PO SCH (10:02)
[2021-07-25] MEDS: LORATADINE 10 MG TABLET PO SCH (10:02)
[2021-07-25] MEDS: risperiDONE 0.5 MG TABLET PO SCH ×2 (10:02→21:47)
[2021-07-25] MEDS: MULTIVITAMINS (DAILY MVI) TABLET (FP) PO SCH (10:02)
[2021-07-25] MEDS: GABAPENTIN 400 MG CAPSULE PO SCH ×2 (10:02→21:42)
[2021-07-25] MEDS: ERTAPENEM SODIUM 1 GM in SODIUM CHLORIDE 50 ML IVPB SCH (10:02)
[2021-07-25] MEDS: METHYL SALICYLATE/MENTHOL OINT 30 GM TUBE TP SCH ×2 (10:03→21:41)
[2021-07-25] MEDS: LIDOCAINE 5% TOPICAL PATCH TP SCH (10:03)
[2021-07-25] MEDS: ENOXAPARIN NA (PORCINE) 40 MG/0.4 ML DISP.SYRIN SQ SCH (10:04)
[2021-07-25] MEDS: FLUTICASONE PROP 0.05% 16 GM NASAL SPRAY NS SCH ×2 (10:15→21:41)
[2021-07-25] MEDS: metoPROLOL SUCCINATE 25 MG TAB.SR.24H (FP) PO SCH (16:16)
[2021-07-25] MEDS: DOCUSATE SODIUM 100 MG CAPSULE (FP) PO SCH (21:41)
[2021-07-25] MEDS: LIDOCAINE PATCH REMOVAL MC SCH (21:41)
[2021-07-25] MEDS: ATORVASTATIN CA 20 MG TABLET (FP) PO SCH (21:42)
[2021-07-25] MEDS: SENNOSIDES 8.6MG TABLET (FP) PO SCH (21:42)
[2021-07-26] MEDS: DEXTROSE 5%-0.45% SALINE 1,000 ML IV SCH (01:57)
[2021-07-26] MEDS: POLYETHYLENE GLYCOL (HEALTHYLAX) 3350 17 GM PACKET PO SCH ×4 (06:47→23:20)
[2021-07-26] MEDS: INSULIN SLIDING SCALE (NOVOLOG) 1 VIAL SQ SCH ×4 (06:51→23:11)
[2021-07-26] MEDS ORDERED: INSULIN (NOVOLOG) ASPART 100 UNITS/ML 10ML VIAL SQ SCH (07:00)
[2021-07-26] MEDS ORDERED: INSULIN (LEVEMIR) 100 UNITS/ML UNITS SQ SCH (07:00)
[2021-07-26 09:37] LABS: BASO % 0.2 % (0-2.0); EOS % 0.8 % (0-4.5); HEMATOCRIT 33.8 % (32.4-45.2); HEMOGLOBIN 10.8 GM/dL (10.7-15.3); LYMPH % 23.2 % (8-40); MCH 25.9 pg (25.7-33.7); MCHC 31.8 g/dl (32.0-36.0); MEAN CELL VOLUME 81.2 fl (80-96); MEAN PLT VOLUME 7.9 fl (7.5-11.1); MONO % 6.3 % (3.8-10.2); NEUT % 69.5 % (42.8-82.8); PLATELET COUNT 374 10^3/uL (134-434); RBC 4.17 M/mm3 (3.60-5.2); RDW 14.8 % (11.6-15.6); WHITE BLOOD COUNT 7.2 K/mm3 (4.0-10.0)
[2021-07-26 09:54] LABS: BLOOD UREA NITROGEN 7.3 mg/dL (7-18)
[2021-07-26 09:55] LABS: CALCIUM 8.6 mg/dL (8.5-10.1)
[2021-07-26 09:56] LABS: ALBUMIN 1.9 g/dl (3.4-5.0)
[2021-07-26 09:59] LABS: CREATININE 0.5 mg/dL (0.55-1.3)
[2021-07-26 10:01] LABS: BILIRUBIN,TOTAL 0.4 mg/dL (0.2-1); TOT PROT 7.1 g/dl (6.4-8.2)
[2021-07-26] MEDS: MULTIVITAMINS (DAILY MVI) TABLET (FP) PO SCH (11:00)
[2021-07-26] MEDS: LORATADINE 10 MG TABLET PO SCH (11:00)
[2021-07-26] MEDS: risperiDONE 0.5 MG TABLET PO SCH ×2 (11:00→23:09)
[2021-07-26] MEDS: GABAPENTIN 400 MG CAPSULE PO SCH ×2 (11:00→23:09)
[2021-07-26] MEDS: amLODIPine BESYLATE 5 MG TABLET (FP) PO SCH (11:00)
[2021-07-26] MEDS: ERTAPENEM SODIUM 1 GM in SODIUM CHLORIDE 50 ML IVPB SCH (11:01)
[2021-07-26] MEDS: LIDOCAINE 5% TOPICAL PATCH TP SCH (11:01)
[2021-07-26] MEDS: ENOXAPARIN NA (PORCINE) 40 MG/0.4 ML DISP.SYRIN SQ SCH (11:01)
[2021-07-26] MEDS: metoPROLOL SUCCINATE 25 MG TAB.SR.24H (FP) PO SCH (11:02)
[2021-07-26] MEDS: METHYL SALICYLATE/MENTHOL OINT 30 GM TUBE TP SCH ×2 (12:11→23:09)
[2021-07-26] MEDS: FLUTICASONE PROP 0.05% 16 GM NASAL SPRAY NS SCH ×2 (12:11→23:10)
[2021-07-26] MEDS: FAMOTIDINE 20 MG TABLET PO SCH (17:39)
[2021-07-26] MEDS ORDERED: PT OWN MED DRAWER 7, Y5N ONE (20:39)
[2021-07-26] MEDS: DOCUSATE SODIUM 100 MG CAPSULE (FP) PO SCH (23:09)
[2021-07-26] MEDS: SENNOSIDES 8.6MG TABLET (FP) PO SCH (23:09)
[2021-07-26] MEDS: LIDOCAINE PATCH REMOVAL MC SCH (23:11)
[2021-07-26] MEDS: ATORVASTATIN CA 20 MG TABLET (FP) PO SCH (23:11)
[2021-07-27] MEDS: DEXTROSE 5%-0.45% SALINE 1,000 ML IV SCH (02:05)
[2021-07-27] MEDS: DOCUSATE SODIUM 100 MG CAPSULE (FP) PO SCH ×2 (04:57→22:08)
[2021-07-27] MEDS: SENNOSIDES 8.6MG TABLET (FP) PO SCH ×3 (04:57→22:19)
[2021-07-27] MEDS: INSULIN SLIDING SCALE (NOVOLOG) 1 VIAL SQ SCH ×4 (06:28→22:10)
[2021-07-27] MEDS: INSULIN (LEVEMIR) 100 UNITS/ML UNITS SQ SCH (06:29)
[2021-07-27] MEDS: POLYETHYLENE GLYCOL (HEALTHYLAX) 3350 17 GM PACKET PO SCH ×3 (06:29→22:07)
[2021-07-27] MEDS ORDERED: INSULIN SLIDING SCALE (NOVOLOG) 1 VIAL SQ ONE (06:36)
[2021-07-27 10:05] LABS: CALCIUM 8.5 mg/dL (8.5-10.1)
[2021-07-27 10:06] LABS: BLOOD UREA NITROGEN 7.2 mg/dL (7-18)
[2021-07-27 10:09] LABS: CREATININE 0.7 mg/dL (0.55-1.3)
[2021-07-27 10:27] LABS: BASO % 0.5 % (0-2.0); EOS % 1.4 % (0-4.5); HEMATOCRIT 32.6 % (32.4-45.2); HEMOGLOBIN 10.4 GM/dL (10.7-15.3); LYMPH % 15.8 % (8-40); MCH 25.8 pg (25.7-33.7); MEAN CELL VOLUME 80.5 fl (80-96); MEAN PLT VOLUME 7.9 fl (7.5-11.1); MONO % 10.4 % (3.8-10.2); NEUT % 71.9 % (42.8-82.8); PLATELET COUNT 322 10^3/uL (134-434); RBC 4.05 M/mm3 (3.60-5.2); RDW 15.3 % (11.6-15.6)
[2021-07-27] MEDS: ERTAPENEM SODIUM 1 GM in SODIUM CHLORIDE 50 ML IVPB SCH (11:13)
[2021-07-27] MEDS: amLODIPine BESYLATE 5 MG TABLET (FP) PO SCH (11:14)
[2021-07-27] MEDS: ENOXAPARIN NA (PORCINE) 40 MG/0.4 ML DISP.SYRIN SQ SCH (11:14)
[2021-07-27] MEDS: metoPROLOL SUCCINATE 25 MG TAB.SR.24H (FP) PO SCH (11:15)
[2021-07-27] MEDS: GABAPENTIN 400 MG CAPSULE PO SCH ×3 (11:15→22:18)
[2021-07-27] MEDS: MULTIVITAMINS (DAILY MVI) TABLET (FP) PO SCH (11:15)
[2021-07-27] MEDS: LORATADINE 10 MG TABLET PO SCH (11:15)
[2021-07-27] MEDS: FAMOTIDINE 20 MG TABLET PO SCH (11:16)
[2021-07-27] MEDS: LIDOCAINE 5% TOPICAL PATCH TP SCH (11:16)
[2021-07-27] MEDS: FLUTICASONE PROP 0.05% 16 GM NASAL SPRAY NS SCH ×2 (11:32→22:08)
[2021-07-27] MEDS ORDERED: PT OWN MED DRAWER 7, Y5N ONE ×2 (12:55→22:05)
[2021-07-27] MEDS: METHYL SALICYLATE/MENTHOL OINT 30 GM TUBE TP SCH ×2 (13:01→22:07)
[2021-07-27] MEDS: risperiDONE 0.5 MG TABLET PO SCH ×2 (13:05→22:09)
[2021-07-27] MEDS ORDERED: LABETALOL HCL 100 MG TABLET (FP) PO ONE (16:46)
[2021-07-27] MEDS ORDERED: ACETAMINOPHEN 325 MG TABLET (FP) PO ONE (16:47)
[2021-07-27] MEDS: ATORVASTATIN CA 20 MG TABLET (FP) PO SCH (22:08)
[2021-07-27] MEDS: LIDOCAINE PATCH REMOVAL MC SCH (22:08)
[2021-07-28] MEDS: DEXTROSE 5%-0.45% SALINE 1,000 ML IV SCH (04:17)
[2021-07-28] MEDS: POLYETHYLENE GLYCOL (HEALTHYLAX) 3350 17 GM PACKET PO SCH ×3 (06:25→22:16)
[2021-07-28] MEDS: INSULIN SLIDING SCALE (NOVOLOG) 1 VIAL SQ SCH ×4 (06:25→22:14)
[2021-07-28] MEDS: INSULIN (LEVEMIR) 100 UNITS/ML UNITS SQ SCH (06:26)
[2021-07-28 08:58] LABS: BASO % 0.3 % (0-2.0); EOS % 0.6 % (0-4.5); HEMATOCRIT 31.3 % (32.4-45.2); HEMOGLOBIN 10.4 GM/dL (10.7-15.3); LYMPH % 16.1 % (8-40); MCH 26.3 pg (25.7-33.7); MCHC 33.1 g/dl (32.0-36.0); MEAN CELL VOLUME 79.4 fl (80-96); MEAN PLT VOLUME 7.8 fl (7.5-11.1); MONO % 10.6 % (3.8-10.2); NEUT % 72.4 % (42.8-82.8); PLATELET COUNT 294 10^3/uL (134-434); RBC 3.94 M/mm3 (3.60-5.2); RDW 15.2 % (11.6-15.6); WHITE BLOOD COUNT 7.3 K/mm3 (4.0-10.0)
[2021-07-28 09:23] LABS: CALCIUM 8.4 mg/dL (8.5-10.1)
[2021-07-28 09:24] LABS: BLOOD UREA NITROGEN 12.4 mg/dL (7-18); MAGNESIUM 1.6 mg/dL (1.8-2.4)
[2021-07-28 09:26] LABS: PHOSPHOROUS 4.1 mg/dL (2.5-4.9)
[2021-07-28 09:27] LABS: CREATININE 0.8 mg/dL (0.55-1.3)
[2021-07-28] MEDS ORDERED: MAGNESIUM SULF 50% (8.12 MEQ/2 ML-1 GM VIAL) IVPB ONE (11:07)
[2021-07-28] MEDS ORDERED: PT OWN MED DRAWER 7, Y5N ONE ×4 (11:08→22:30)
[2021-07-28] MEDS: ENOXAPARIN NA (PORCINE) 40 MG/0.4 ML DISP.SYRIN SQ SCH (11:13)
[2021-07-28] MEDS: LIDOCAINE 5% TOPICAL PATCH TP SCH (11:14)
[2021-07-28] MEDS: ERTAPENEM SODIUM 1 GM in SODIUM CHLORIDE 50 ML IVPB SCH (11:14)
[2021-07-28] MEDS: LORATADINE 10 MG TABLET PO SCH (11:15)
[2021-07-28] MEDS: risperiDONE 0.5 MG TABLET PO SCH ×2 (11:15→22:17)
[2021-07-28] MEDS: metoPROLOL SUCCINATE 25 MG TAB.SR.24H (FP) PO SCH (11:15)
[2021-07-28] MEDS: GABAPENTIN 400 MG CAPSULE PO SCH ×2 (11:16→22:16)
[2021-07-28] MEDS: FAMOTIDINE 20 MG TABLET PO SCH (11:16)
[2021-07-28] MEDS: FLUTICASONE PROP 0.05% 16 GM NASAL SPRAY NS SCH ×2 (11:16→22:15)
[2021-07-28] MEDS: MULTIVITAMINS (DAILY MVI) TABLET (FP) PO SCH (11:16)
[2021-07-28] MEDS: amLODIPine BESYLATE 5 MG TABLET (FP) PO SCH (11:16)
[2021-07-28] MEDS: METHYL SALICYLATE/MENTHOL OINT 30 GM TUBE TP SCH ×2 (14:05→22:15)
[2021-07-28 17:09] VITALS: BMI 26.7
[2021-07-28] MEDS: ATORVASTATIN CA 20 MG TABLET (FP) PO SCH (22:16)
[2021-07-28] MEDS: LIDOCAINE PATCH REMOVAL MC SCH (22:16)
[2021-07-28] MEDS: DOCUSATE SODIUM 100 MG CAPSULE (FP) PO SCH (22:16)
[2021-07-28] MEDS: SENNOSIDES 8.6MG TABLET (FP) PO SCH (22:17)
[2021-07-29] MEDS: POLYETHYLENE GLYCOL (HEALTHYLAX) 3350 17 GM PACKET PO SCH ×4 (06:16→22:04)
[2021-07-29] MEDS: INSULIN (LEVEMIR) 100 UNITS/ML UNITS SQ SCH (06:16)
[2021-07-29] MEDS: INSULIN SLIDING SCALE (NOVOLOG) 1 VIAL SQ SCH ×4 (06:17→22:05)
[2021-07-29 09:14] LABS: HEMATOCRIT 29.6 % (32.4-45.2); HEMOGLOBIN 9.7 GM/dL (10.7-15.3); MCH 26.3 pg (25.7-33.7); MCHC 32.9 g/dl (32.0-36.0); MEAN CELL VOLUME 79.9 fl (80-96); MEAN PLT VOLUME 7.6 fl (7.5-11.1); PLATELET COUNT 303 10^3/uL (134-434); RDW 14.9 % (11.6-15.6); WHITE BLOOD COUNT 4.6 K/mm3 (4.0-10.0)
[2021-07-29 09:36] LABS: CALCIUM 8.4 mg/dL (8.5-10.1)
[2021-07-29 09:37] LABS: ALBUMIN 1.5 g/dl (3.4-5.0); BLOOD UREA NITROGEN 11.9 mg/dL (7-18)
[2021-07-29 09:40] LABS: CREATININE 0.6 mg/dL (0.55-1.3)
[2021-07-29 09:41] LABS: BILIRUBIN,TOTAL 0.3 mg/dL (0.2-1)
[2021-07-29 09:42] LABS: TOT PROT 6.7 g/dl (6.4-8.2)
[2021-07-29] MEDS: ENOXAPARIN NA (PORCINE) 40 MG/0.4 ML DISP.SYRIN SQ SCH (11:51)
[2021-07-29] MEDS: MULTIVITAMINS (DAILY MVI) TABLET (FP) PO SCH (11:54)
[2021-07-29] MEDS: FAMOTIDINE 20 MG TABLET PO SCH (11:54)
[2021-07-29] MEDS: risperiDONE 0.5 MG TABLET PO SCH ×2 (11:54→22:08)
[2021-07-29] MEDS: LIDOCAINE 5% TOPICAL PATCH TP SCH (11:54)
[2021-07-29] MEDS: metoPROLOL SUCCINATE 25 MG TAB.SR.24H (FP) PO SCH (11:54)
[2021-07-29] MEDS: GABAPENTIN 400 MG CAPSULE PO SCH ×2 (11:54→22:05)
[2021-07-29] MEDS: FLUTICASONE PROP 0.05% 16 GM NASAL SPRAY NS SCH ×3 (11:55→22:04)
[2021-07-29] MEDS: LORATADINE 10 MG TABLET PO SCH (11:55)
[2021-07-29] MEDS: amLODIPine BESYLATE 5 MG TABLET (FP) PO SCH (11:55)
[2021-07-29] MEDS: METHYL SALICYLATE/MENTHOL OINT 30 GM TUBE TP SCH ×2 (11:55→22:04)
[2021-07-29] MEDS: ERTAPENEM SODIUM 1 GM in SODIUM CHLORIDE 50 ML IVPB SCH (11:55)
[2021-07-29] MEDS: DEXTROSE 5%-0.45% SALINE 1,000 ML IV SCH (12:55)
[2021-07-29] MEDS: predniSONE 10 MG TABLET (UD) PO SCH (14:12)
[2021-07-29] MEDS: KCL 10 MEQ IVPB 10 MEQ/100 ML INFUS.BAG IVPB SCH ×2 (14:58→15:45)
[2021-07-29] MEDS ORDERED: POTASSIUM CHLORIDE TABS 20 MEQ TABLET.ER (FP) PO ONE (15:42)
[2021-07-29] MEDS: DOCUSATE SODIUM 100 MG CAPSULE (FP) PO SCH (22:04)
[2021-07-29] MEDS: LIDOCAINE PATCH REMOVAL MC SCH (22:05)
[2021-07-29] MEDS: ATORVASTATIN CA 20 MG TABLET (FP) PO SCH (22:05)
[2021-07-29] MEDS: SENNOSIDES 8.6MG TABLET (FP) PO SCH (22:06)
[2021-07-29] MEDS ORDERED: PT OWN MED DRAWER 7, Y5N ONE (22:07)
[2021-07-30] MEDS: DEXTROSE 5%-0.45% SALINE 1,000 ML IV SCH (06:25)
[2021-07-30] MEDS: POLYETHYLENE GLYCOL (HEALTHYLAX) 3350 17 GM PACKET PO SCH ×3 (06:25→21:17)
[2021-07-30] MEDS: INSULIN SLIDING SCALE (NOVOLOG) 1 VIAL SQ SCH ×4 (06:41→21:14)
[2021-07-30] MEDS: INSULIN (LEVEMIR) 100 UNITS/ML UNITS SQ SCH (06:42)
[2021-07-30 09:00] LABS: HEMATOCRIT 28.9 % (32.4-45.2); HEMOGLOBIN 9.5 GM/dL (10.7-15.3); MCH 26.1 pg (25.7-33.7); MCHC 32.7 g/dl (32.0-36.0); MEAN CELL VOLUME 79.8 fl (80-96); MEAN PLT VOLUME 7.6 fl (7.5-11.1); PLATELET COUNT 293 10^3/uL (134-434); RBC 3.62 M/mm3 (3.60-5.2); RDW 14.8 % (11.6-15.6); WHITE BLOOD COUNT 4.4 K/mm3 (4.0-10.0)
[2021-07-30] MEDS: ENOXAPARIN NA (PORCINE) 40 MG/0.4 ML DISP.SYRIN SQ SCH (09:44)
[2021-07-30 09:45] LABS: ERYTHROCYTE SEDIMENTATION RATE 111 mm/hr (0-30)
[2021-07-30] MEDS: amLODIPine BESYLATE 5 MG TABLET (FP) PO SCH (09:45)
[2021-07-30] MEDS: GABAPENTIN 400 MG CAPSULE PO SCH ×2 (09:45→21:16)
[2021-07-30] MEDS: predniSONE 10 MG TABLET (UD) PO SCH (09:45)
[2021-07-30] MEDS: FAMOTIDINE 20 MG TABLET PO SCH (09:45)
[2021-07-30] MEDS: MULTIVITAMINS (DAILY MVI) TABLET (FP) PO SCH (09:46)
[2021-07-30] MEDS: risperiDONE 0.5 MG TABLET PO SCH ×2 (09:46→21:20)
[2021-07-30] MEDS: metoPROLOL SUCCINATE 25 MG TAB.SR.24H (FP) PO SCH (09:46)
[2021-07-30 09:47] LABS: BLOOD UREA NITROGEN 14.1 mg/dL (7-18)
[2021-07-30] MEDS: ERTAPENEM SODIUM 1 GM in SODIUM CHLORIDE 50 ML IVPB SCH (09:48)
[2021-07-30] MEDS: LIDOCAINE 5% TOPICAL PATCH TP SCH (09:48)
[2021-07-30] MEDS: LORATADINE 10 MG TABLET PO SCH (09:49)
[2021-07-30] MEDS: METHYL SALICYLATE/MENTHOL OINT 30 GM TUBE TP SCH ×2 (09:50→21:17)
[2021-07-30 09:51] LABS: CREATININE 0.7 mg/dL (0.55-1.3)
[2021-07-30] MEDS: FLUTICASONE PROP 0.05% 16 GM NASAL SPRAY NS SCH ×2 (09:51→21:17)
[2021-07-30] MEDS ORDERED: PT OWN MED DRAWER 7, Y5N ONE (21:10)
[2021-07-30] MEDS: ATORVASTATIN CA 20 MG TABLET (FP) PO SCH (21:16)
[2021-07-30] MEDS: LIDOCAINE PATCH REMOVAL MC SCH (21:17)
[2021-07-30] MEDS: DOCUSATE SODIUM 100 MG CAPSULE (FP) PO SCH (21:17)
[2021-07-30] MEDS: SENNOSIDES 8.6MG TABLET (FP) PO SCH (21:18)
[2021-07-31] MEDS: INSULIN (LEVEMIR) 100 UNITS/ML UNITS SQ SCH (06:07)
[2021-07-31] MEDS: INSULIN SLIDING SCALE (NOVOLOG) 1 VIAL SQ SCH ×2 (06:07→11:38)
[2021-07-31] MEDS: POLYETHYLENE GLYCOL (HEALTHYLAX) 3350 17 GM PACKET PO SCH ×2 (06:08→14:00)
[2021-07-31] MEDS: ENOXAPARIN NA (PORCINE) 40 MG/0.4 ML DISP.SYRIN SQ SCH (10:13)
[2021-07-31] MEDS: metoPROLOL SUCCINATE 25 MG TAB.SR.24H (FP) PO SCH (10:13)
[2021-07-31] MEDS: MULTIVITAMINS (DAILY MVI) TABLET (FP) PO SCH (10:13)
[2021-07-31] MEDS: predniSONE 10 MG TABLET (UD) PO SCH (10:13)
[2021-07-31] MEDS: amLODIPine BESYLATE 5 MG TABLET (FP) PO SCH (10:13)
[2021-07-31] MEDS: LORATADINE 10 MG TABLET PO SCH (10:13)
[2021-07-31] MEDS: LIDOCAINE 5% TOPICAL PATCH TP SCH (10:14)
[2021-07-31] MEDS: FAMOTIDINE 20 MG TABLET PO SCH (10:14)
[2021-07-31] MEDS: GABAPENTIN 400 MG CAPSULE PO SCH (10:14)
[2021-07-31] MEDS: risperiDONE 0.5 MG TABLET PO SCH (10:14)
[2021-07-31] MEDS: METHYL SALICYLATE/MENTHOL OINT 30 GM TUBE TP SCH (10:15)
[2021-07-31] MEDS: FLUTICASONE PROP 0.05% 16 GM NASAL SPRAY NS SCH (10:15)
[2021-07-31 12:12] VITALS: BP 138/58; PULSE 52; TEMP 98.1
== END 2021-07-31 14:16 | DRG 391 ==
LOC: JER 13:35 → JERBED 16:04 → J5S 07-23 06:02
PROVIDERS: ADMIT Internal Medicine; ATTEND Internal Medicine
DX: K57.32 Diverticulitis of large intestine without perforation or abscess without bleeding (principal); G93.41 Metabolic encephalopathy; N39.0 Urinary tract infection, site not specified; I50.32 Chronic diastolic (congestive) heart failure; B96.20 Unspecified Escherichia coli [E. coli] as the cause of diseases classified elsewhere; K59.00 Constipation, unspecified; D64.9 Anemia, unspecified; K57.90 Diverticulosis of intestine, part unspecified, without perforation or abscess without bleeding; E11.40 Type 2 diabetes mellitus with diabetic neuropathy, unspecified; G89.29 Other chronic pain; I11.0 Hypertensive heart disease with heart failure; E11.65 Type 2 diabetes mellitus with hyperglycemia; E78.5 Hyperlipidemia, unspecified; R10.31 Right lower quadrant pain; R41.82 Altered mental status, unspecified; K21.9 Gastro-esophageal reflux disease without esophagitis; Z86.010 Personal history of colon polyps; Z88.0 Allergy status to penicillin; Z89.511 Acquired absence of right leg below knee
CPT/HCPCS: 36415; 70450-TC; 71045-TC-FY; 74177-TC; 80048; 80053; 81003; 82550; 82962; 83036; 83690; 83735; 83880; 84100; 84443; 84484; 85025; 85027; 85610; 85651; 85730; 86140; 87040; 87086; 87186; 93005; 93010; 99285-25; C9803; Q9967; U0003; U0005

== ENCOUNTER 2021-09-14 19:11 | Emergency (ER) | payer OTHER ==
[2021-09-14 19:59] VITALS: BMI 31.9
[2021-09-14 21:05] LABS: BASO % 0.1 % (0-2.0); EOS % 0.1 % (0-4.5); HEMATOCRIT 38.7 % (32.4-45.2); HEMOGLOBIN 12.6 GM/dL (10.7-15.3); LYMPH % 14.8 % (8-40); MCH 26.6 pg (25.7-33.7); MCHC 32.5 g/dl (32.0-36.0); MEAN CELL VOLUME 81.9 fl (80-96); MEAN PLT VOLUME 8.7 fl (7.5-11.1); MONO % 5.8 % (3.8-10.2); NEUT % 79.2 % (42.8-82.8); PLATELET COUNT 174 10^3/uL (134-434); RBC 4.73 M/mm3 (3.60-5.2); RDW 18.9 % (11.6-15.6); WHITE BLOOD COUNT 8.4 K/mm3 (4.0-10.0)
[2021-09-14 21:14] LABS: INR 1.12 (0.83-1.09); PROTHROMBIN TIME (PATIENT) 13.1 SEC (9.7-13.0)
[2021-09-14 21:17] LABS: ACTIVATED PTT 22.1 SECONDS (25.2-36.5)
[2021-09-14 21:25] LABS: CHLORIDE 106 mmol/L (98-107); SODIUM 140 mmol/L (136-145)
[2021-09-14 21:27] LABS: CALCIUM 8.1 mg/dL (8.5-10.1)
[2021-09-14 21:28] LABS: ALBUMIN 2.2 g/dl (3.4-5.0); ANION GAP 8 MMOL/L (8-16); BLOOD UREA NITROGEN 21.8 mg/dL (7-18); CO2 26 mmol/L (21-32); GLUCOSE,RANDOM 245 mg/dL (74-106)
[2021-09-14 21:31] LABS: CREATININE 0.9 mg/dL (0.55-1.3); SGOT/AST 20 U/L (15-37); SGPT/ALT 16 U/L (13-61)
[2021-09-14 21:32] LABS: TOT PROT 6.6 g/dl (6.4-8.2)
[2021-09-14 21:33] LABS: BILIRUBIN,TOTAL 0.4 mg/dL (0.2-1)
[2021-09-14 21:34] LABS: ALK PHOS 94 U/L (45-117)
[2021-09-14 22:28] LABS: EPI CELLS 1 /uL (0-25.1); HYALINE CASTS 1 /uL (0-3.1); URINE APPEARANCE TURBID; URINE BACTERIA >9,000 /uL (0-1359); URINE BILIRUBIN NEGATIVE (NEGATIVE); URINE COLOR YELLOW; URINE GLUCOSE (UA) TRACE (NEGATIVE); URINE KETONE TRACE (NEGATIVE); URINE LEUK ESTERASE 2+ (NEGATIVE); URINE NITRITE NEGATIVE (NEGATIVE); URINE PROTEIN 2+ (NEGATIVE); URINE RBC 39 /uL (0-23.9); URINE WBC 2083 /uL (0-25.8)
[2021-09-14] MEDS ORDERED: CEFTRIAXONE 1,000 MG in DEXTROSE 5%-WATER - 50 ML IVPB ONE (22:40)
[2021-09-14] MEDS ORDERED: CEFTRIAXONE 1 GM/50 ML BAG ONE (23:01)
[2021-09-15 12:52] VITALS: BP 163/76; PULSE 61; TEMP 97.9
== END 2021-09-15 13:07 ==
LOC: JER 19:11
PROC: 3E033GC Introduction of Other Therapeutic Substance into Peripheral Vein, Percutaneous Approach (ICD-10-PCS; principal; 2021-09-14)
DX: N39.0 Urinary tract infection, site not specified (principal)
CPT/HCPCS: 36415; 70450-TC; 71045-TC-FY; 80053; 81003; 82962; 83605; 84484; 85025; 85610; 85730; 87040; 87086; 87186; 93005; 93010; 99285-25

== ENCOUNTER 2023-03-21 17:55 | Inpatient (IN) | payer OTHER ==
[2023-03-21] MEDS ORDERED: ACETAMINOPHEN 1000 MG/100 ML BAG IVPB ONE (18:39)
[2023-03-21 18:49] LABS: VENOUS O2 SATURATION 31.9 % (70-80); VENOUS PCO2 60.1 mmHg (38-52); VENOUS PH 7.271 (7.310-7.410)
[2023-03-21] MEDS ORDERED: ACETAMINOPHEN INJECTION 100 ML IVPB ONE (18:50)
[2023-03-21 18:54] LABS: BASO % 0.6 % (0-2.0); EOS % 0.8 % (0-4.5); HEMATOCRIT 35.3 % (32.4-45.2); HEMOGLOBIN 10.9 GM/dL (10.7-15.3); MCH 24.8 pg (25.7-33.7); MCHC 30.9 g/dl (32.0-36.0); MEAN CELL VOLUME 80.4 fl (80-96); MEAN PLT VOLUME 8.9 fl (7.5-11.1); MONO % 8.1 % (3.8-10.2); NEUT % 80.5 % (42.8-82.8); PLATELET COUNT 278 10^3/uL (134-434); RBC 4.39 M/mm3 (3.60-5.2); WHITE BLOOD COUNT 10.5 K/mm3 (4.0-10.0)
[2023-03-21 18:59] LABS: INR 1.07 (0.83-1.09); PROTHROMBIN TIME (PATIENT) 12.4 SEC (9.7-13.0)
[2023-03-21 19:02] LABS: ACTIVATED PTT 25.1 SECONDS (25.2-36.5)
[2023-03-21 19:08] LABS: EPI CELLS 6 /uL (0-25.1); HYALINE CASTS 0 /uL (0-3.1); URINE APPEARANCE TURBID; URINE BACTERIA 3864 /uL (0-1359); URINE BILIRUBIN 1+ (NEGATIVE); URINE COLOR DK YELLOW; URINE GLUCOSE (UA) 2+ (NEGATIVE); URINE KETONE TRACE (NEGATIVE); URINE LEUK ESTERASE 3+ (NEGATIVE); URINE NITRITE NEGATIVE (NEGATIVE); URINE PROTEIN 1+ (NEGATIVE); URINE WBC 4087 /uL (0-25.8)
[2023-03-21 19:13] LABS: POTASSIUM 3.8 mmol/L (3.5-5.1)
[2023-03-21 19:14] LABS: CALCIUM 8.2 mg/dL (8.5-10.1)
[2023-03-21 19:15] LABS: ALBUMIN 2.1 g/dl (3.4-5.0); BLOOD UREA NITROGEN 72.6 mg/dL (7-18)
[2023-03-21] MEDS ORDERED: CEFTRIAXONE 1,000 MG in DEXTROSE 5%-WATER - 50 ML IVPB ONE (19:17)
[2023-03-21 19:18] LABS: CREATININE 3.2 mg/dL (0.55-1.3)
[2023-03-21 19:20] LABS: BILIRUBIN,TOTAL 0.5 mg/dL (0.2-1); TOT PROT 6.5 g/dl (6.4-8.2)
[2023-03-21] MEDS ORDERED: SODIUM CHLORIDE 0.9% 500 ML INFUS.BAG IV ONE (19:25)
[2023-03-21] MEDS ORDERED: CEFTRIAXONE 1 GM/50 ML BAG ONE (20:13)
[2023-03-22 03:51] VITALS: BMI 27.0
[2023-03-22] MEDS ORDERED: ALBUTEROL SO4 2.5/IPRATROPIUM 0.5 INH SOL 3 ML VIAL.NEB. NEB PRN (06:29)
[2023-03-22] MEDS ORDERED: VANCOMYCIN 1,000 MG in DEXTROSE 5%-WATER - 250 ML IVPB SCH ×2 (06:30→10:00)
[2023-03-22] MEDS: INSULIN SLIDING SCALE (NOVOLOG) 1 VIAL SQ SCH ×5 (07:06→21:51)
[2023-03-22] MEDS: GABAPENTIN 100 MG CAPSULE PO SCH ×3 (07:06→21:06)
[2023-03-22] MEDS ORDERED: VANCOMYCIN/WATER FOR INJ (PEG) 1,000 MG/200 ML BAG IVPB SCH (07:18)
[2023-03-22] MEDS: DULoxetine HCL 30 MG CAPSULE.DR PO SCH (10:24)
[2023-03-22] MEDS: FAMOTIDINE 10 MG TABLET PO SCH (10:24)
[2023-03-22] MEDS: amLODIPine BESYLATE 10 MG TABLET (FP) PO SCH (10:24)
[2023-03-22] MEDS: metoPROLOL SUCCINATE 25 MG TAB.SR.24H (FP) PO SCH (10:24)
[2023-03-22 11:12] LABS: BASO % 0.4 % (0-2.0); EOS % 1.3 % (0-4.5); HEMOGLOBIN 10.3 GM/dL (10.7-15.3); LYMPH % 8.6 % (8-40); MCH 23.9 pg (25.7-33.7); MCHC 29.5 g/dl (32.0-36.0); MEAN PLT VOLUME 9.3 fl (7.5-11.1); MONO % 8.2 % (3.8-10.2); NEUT % 81.5 % (42.8-82.8); PLATELET COUNT 282 10^3/uL (134-434); RBC 4.33 M/mm3 (3.60-5.2); WHITE BLOOD COUNT 11.9 K/mm3 (4.0-10.0)
[2023-03-22 11:40] LABS: POTASSIUM 3.7 mmol/L (3.5-5.1)
[2023-03-22 11:46] LABS: CALCIUM 8.2 mg/dL (8.5-10.1)
[2023-03-22 11:47] LABS: BLOOD UREA NITROGEN 73.8 mg/dL (7-18)
[2023-03-22 11:50] LABS: CREATININE 2.4 mg/dL (0.55-1.3)
[2023-03-22] MEDS: SODIUM CHLORIDE 0.45% 1,000 ML IV SCH (13:57)
[2023-03-22] MEDS: ATORVASTATIN CA 20 MG TABLET (FP) PO SCH (21:06)
[2023-03-23] MEDS: GABAPENTIN 100 MG CAPSULE PO SCH ×3 (05:17→21:13)
[2023-03-23] MEDS: SODIUM CHLORIDE 0.45% 1,000 ML IV SCH ×3 (05:55→18:58)
[2023-03-23] MEDS: INSULIN SLIDING SCALE (NOVOLOG) 1 VIAL SQ SCH ×4 (06:09→21:31)
[2023-03-23 09:18] LABS: POTASSIUM 3.5 mmol/L (3.5-5.1)
[2023-03-23 09:28] LABS: BLOOD UREA NITROGEN 50.3 mg/dL (7-18); CREATININE 1.2 mg/dL (0.55-1.3)
[2023-03-23 09:30] LABS: BILIRUBIN,TOTAL 0.4 mg/dL (0.2-1); CALCIUM 8.1 mg/dL (8.5-10.1); TOT PROT 6.2 g/dl (6.4-8.2)
[2023-03-23] MEDS: amLODIPine BESYLATE 10 MG TABLET (FP) PO SCH (10:43)
[2023-03-23] MEDS: metoPROLOL SUCCINATE 25 MG TAB.SR.24H (FP) PO SCH (10:43)
[2023-03-23] MEDS: DULoxetine HCL 30 MG CAPSULE.DR PO SCH (10:44)
[2023-03-23] MEDS: CEFTRIAXONE 1 GM in DEXTROSE 5%-WATER - 50 ML IVPB SCH (11:35)
[2023-03-23] MEDS: ATORVASTATIN CA 20 MG TABLET (FP) PO SCH (21:13)
[2023-03-24] MEDS: GABAPENTIN 100 MG CAPSULE PO SCH ×3 (05:18→21:53)
[2023-03-24] MEDS: INSULIN SLIDING SCALE (NOVOLOG) 1 VIAL SQ SCH ×4 (06:31→21:31)
[2023-03-24 08:21] LABS: HEMATOCRIT 31.4 % (32.4-45.2); HEMOGLOBIN 9.7 GM/dL (10.7-15.3); MCH 23.9 pg (25.7-33.7); MCHC 30.8 g/dl (32.0-36.0); MEAN CELL VOLUME 77.6 fl (80-96); MEAN PLT VOLUME 8.3 fl (7.5-11.1); PLATELET COUNT 291 10^3/uL (134-434); RBC 4.04 M/mm3 (3.60-5.2); RDW 17.2 % (11.6-15.6); WHITE BLOOD COUNT 11.1 K/mm3 (4.0-10.0)
[2023-03-24 08:39] LABS: POTASSIUM 3.8 mmol/L (3.5-5.1)
[2023-03-24 08:41] LABS: ALBUMIN 1.8 g/dl (3.4-5.0); BLOOD UREA NITROGEN 28.4 mg/dL (7-18); CALCIUM 8.4 mg/dL (8.5-10.1)
[2023-03-24 08:44] LABS: CREATININE 0.8 mg/dL (0.55-1.3)
[2023-03-24 08:46] LABS: BILIRUBIN,TOTAL 0.3 mg/dL (0.2-1); TOT PROT 5.8 g/dl (6.4-8.2)
[2023-03-24] MEDS: DULoxetine HCL 30 MG CAPSULE.DR PO SCH (09:47)
[2023-03-24] MEDS: FAMOTIDINE 10 MG TABLET PO SCH (09:47)
[2023-03-24] MEDS: metoPROLOL SUCCINATE 25 MG TAB.SR.24H (FP) PO SCH (09:48)
[2023-03-24] MEDS: CEFTRIAXONE 1 GM in DEXTROSE 5%-WATER - 50 ML IVPB SCH (09:49)
[2023-03-24] MEDS: amLODIPine BESYLATE 10 MG TABLET (FP) PO SCH (09:49)
[2023-03-24] MEDS: SODIUM CHLORIDE 0.45% 1,000 ML IV SCH (18:38)
[2023-03-24 20:20] VITALS: RESP 16
[2023-03-24 21:32] VITALS: BP 146/65; PULSE 73; TEMP 98.5
[2023-03-24] MEDS: ATORVASTATIN CA 20 MG TABLET (FP) PO SCH (21:53)
[2023-03-25] MEDS ORDERED: INSULIN (LEVEMIR) 100 UNITS/ML UNITS SQ SCH (07:00)
== END 2023-03-24 21:30 | DRG 689 ==
LOC: JER 17:55 → JERBED 22:14 → J5S 03-22 06:15
PROVIDERS: ADMIT Internal Medicine; ATTEND Family Medicine
DX: N39.0 Urinary tract infection, site not specified (principal); J18.9 Pneumonia, unspecified organism; I50.32 Chronic diastolic (congestive) heart failure; N17.9 Acute kidney failure, unspecified; J98.11 Atelectasis; E78.5 Hyperlipidemia, unspecified; F03.90 Unspecified dementia, unspecified severity, without behavioral disturbance, psychotic disturbance, mood disturbance, and anxiety; L89.152 Pressure ulcer of sacral region, stage 2; R09.02 Hypoxemia; I11.0 Hypertensive heart disease with heart failure; K21.9 Gastro-esophageal reflux disease without esophagitis; D64.9 Anemia, unspecified; K57.90 Diverticulosis of intestine, part unspecified, without perforation or abscess without bleeding; E11.42 Type 2 diabetes mellitus with diabetic polyneuropathy; E11.51 Type 2 diabetes mellitus with diabetic peripheral angiopathy without gangrene; Z89.511 Acquired absence of right leg below knee
CPT/HCPCS: 0241U-QW; 36415; 71045-TC-FY; 71250-TC; 74176-TC; 76705-TC; 76775-TC; 80048; 80053; 81003; 82803; 82962; 83036; 83605; 84439; 84443; 84484; 85025; 85027; 85610; 85730; 86850; 86900; 86901; 87040; 87077; 87086; 93005; 93010; 99285-25

== ENCOUNTER 2023-03-29 12:51 | Inpatient (IN) | payer OTHER ==
[2023-03-29] MEDS ORDERED: VANCOMYCIN HCL 1,500 MG in DEXTROSE 5%-WATER - 500 ML IVPB ONE (14:12)
[2023-03-29] MEDS ORDERED: VANCOMYCIN PREMIX 1.5 GM 1,500 MG/300 ML BAG IVPB ONE (14:56)
[2023-03-29 15:09] LABS: VENOUS BASE EXCESS 2.3 mmol/L (-2-2); VENOUS O2 SATURATION 50.8 % (70-80); VENOUS PH 7.341 (7.310-7.410)
[2023-03-29] MEDS ORDERED: ACETAMINOPHEN 1000 MG/100 ML BAG IVPB ONE (15:10)
[2023-03-29 15:11] LABS: BASO % 0.2 % (0-2.0); EOS % 0.9 % (0-4.5); HEMATOCRIT 34.7 % (32.4-45.2); HEMOGLOBIN 10.7 GM/dL (10.7-15.3); LYMPH % 13.6 % (8-40); MCH 23.6 pg (25.7-33.7); MCHC 30.8 g/dl (32.0-36.0); MEAN CELL VOLUME 76.7 fl (80-96); MEAN PLT VOLUME 8.3 fl (7.5-11.1); MONO % 7.3 % (3.8-10.2); PLATELET COUNT 331 10^3/uL (134-434); RBC 4.52 M/mm3 (3.60-5.2); RDW 17.4 % (11.6-15.6); WHITE BLOOD COUNT 11.3 K/mm3 (4.0-10.0)
[2023-03-29 15:15] LABS: INR 1.27 (0.83-1.09); PROTHROMBIN TIME (PATIENT) 14.7 SEC (9.7-13.0)
[2023-03-29 15:17] LABS: ACTIVATED PTT 27.7 SECONDS (25.2-36.5)
[2023-03-29] MEDS ORDERED: ACETAMINOPHEN INJECTION 100 ML IVPB ONE (15:25)
[2023-03-29 15:34] LABS: POTASSIUM 3.6 mmol/L (3.5-5.1)
[2023-03-29 15:36] LABS: CALCIUM 8.3 mg/dL (8.5-10.1)
[2023-03-29 15:38] LABS: ALBUMIN 1.8 g/dl (3.4-5.0)
[2023-03-29 15:40] LABS: CREATININE 0.8 mg/dL (0.55-1.3)
[2023-03-29 15:41] LABS: BILIRUBIN,TOTAL 0.2 mg/dL (0.2-1); TOT PROT 6.5 g/dl (6.4-8.2)
[2023-03-29 15:47] LABS: LACTIC ACID 2.8 mmol/L (0.4-2.0)
[2023-03-29] MEDS ORDERED: LACTATED RINGERS SOLUTION 1000 ML INFUS.BAG IV ONE (15:57)
[2023-03-29] MEDS ORDERED: SODIUM CHLORIDE 0.9% 500 ML INFUS.BAG IV ONE (15:58)
[2023-03-29] MEDS ORDERED: MEROPENEM 1 GM in DEXTROSE 5%-WATER 100 ML IVPB ONE (16:35)
[2023-03-29 17:45] LABS: EPI CELLS 7 /uL (0-25.1); HYALINE CASTS 0 /uL (0-3.1); PH,URINE 6.5 (5.0-8.0); URINE APPEARANCE CLEAR; URINE BACTERIA 0 /uL (0-1359); URINE BILIRUBIN NEGATIVE (NEGATIVE); URINE COLOR YELLOW; URINE GLUCOSE (UA) 3+ (NEGATIVE); URINE KETONE NEGATIVE (NEGATIVE); URINE LEUK ESTERASE NEGATIVE (NEGATIVE); URINE NITRITE NEGATIVE (NEGATIVE); URINE PROTEIN 2+ (NEGATIVE); URINE RBC 13 /uL (0-23.9); URINE WBC 13 /uL (0-25.8)
[2023-03-29] MEDS ORDERED: MEROPENEM 1 GM VIAL (RESTRICTED TO ID) IVPB ONE (18:28)
[2023-03-29] MEDS ORDERED: ACETAMINOPHEN 1000 MG/100 ML BAG IVPB PRN (20:38)
[2023-03-29] MEDS: SODIUM CHLORIDE 1,000 ML IV SCH (23:34)
[2023-03-30] MEDS: MEROPENEM 1 GM in DEXTROSE 5%-WATER 100 ML IVPB SCH ×3 (02:03→14:39)
[2023-03-30] MEDS ORDERED: VANCOMYCIN PREMIX 1.5 GM 1,500 MG/300 ML BAG IVPB SCH (05:00)
[2023-03-30] MEDS ORDERED: VANCOMYCIN HCL 1,500 MG in DEXTROSE 5%-WATER - 250 ML IVPB SCH (06:00)
[2023-03-30 10:15] LABS: EOS % 1.6 % (0-4.5); HEMATOCRIT 31.5 % (32.4-45.2); HEMOGLOBIN 10.2 GM/dL (10.7-15.3); MCH 24.7 pg (25.7-33.7); MCHC 32.6 g/dl (32.0-36.0); MEAN CELL VOLUME 75.8 fl (80-96); MEAN PLT VOLUME 8.3 fl (7.5-11.1); MONO % 7.3 % (3.8-10.2); NEUT % 81.1 % (42.8-82.8); PLATELET COUNT 312 10^3/uL (134-434); RBC 4.15 M/mm3 (3.60-5.2); RDW 17.3 % (11.6-15.6); WHITE BLOOD COUNT 10.7 K/mm3 (4.0-10.0)
[2023-03-30 10:42] LABS: POTASSIUM 3.3 mmol/L (3.5-5.1)
[2023-03-30 10:44] LABS: BLOOD UREA NITROGEN 7.2 mg/dL (7-18); CALCIUM 7.6 mg/dL (8.5-10.1)
[2023-03-30 10:46] LABS: MAGNESIUM 1.2 mg/dL (1.8-2.4)
[2023-03-30 10:49] LABS: CREATININE 0.6 mg/dL (0.55-1.3); PHOSPHOROUS 3.2 mg/dL (2.5-4.9)
[2023-03-30] MEDS: CEFEPIME 2 GM in DEXTROSE 5%-WATER 100 ML IVPB SCH (17:13)
[2023-03-30] MEDS: SODIUM CHLORIDE 1,000 ML IV SCH (22:05)
[2023-03-31] MEDS ORDERED: VANCOMYCIN/WATER FOR INJ (PEG) 1,000 MG/200 ML BAG IVPB SCH (05:00)
[2023-03-31] MEDS ORDERED: POTASSIUM CHLORIDE TABS 10 MEQ TABLET.ER (FP) PO ONE (05:50)
[2023-03-31] MEDS: CEFEPIME 2 GM in DEXTROSE 5%-WATER 100 ML IVPB SCH ×2 (06:03→17:05)
[2023-03-31] MEDS ORDERED: SUCCINYLCHOLINE CHLORIDE 200 MG/10 ML SYRINGE ONE (11:18)
[2023-03-31] MEDS ORDERED: PHENYLEPHRINE HCL 10 MG/1 ML SINGLE DOSE VIAL ONE (11:18)
[2023-03-31] MEDS ORDERED: PROPOFOL 20 ML ONE (11:58)
[2023-03-31] MEDS ORDERED: ONDANSETRON 4 MG/2 ML VIAL IVPUSH PRN (12:56)
[2023-03-31] MEDS ORDERED: ACETAMINOPHEN 1000 MG/100 ML BAG IVPB ONE (12:57)
[2023-03-31] MEDS ORDERED: LACTATED RINGERS SOLUTION 1,000 ML IV SCH (13:00)
[2023-03-31] MEDS ORDERED: ACETAMINOPHEN INJECTION 100 ML IVPB ONE (13:18)
[2023-03-31] MEDS ORDERED: ONDANSETRON 4 MG/2 ML VIAL ONE (14:24)
[2023-03-31] MEDS: SODIUM CHLORIDE 1,000 ML IV SCH (14:37)
[2023-03-31 16:16] VITALS: BMI 30.7
[2023-03-31] MEDS: AMINO ACIDS/PROTEIN HYDROLYS 30 ML LIQUID.PKT PO SCH (16:47)
[2023-03-31] MEDS ORDERED: ACETAMINOPHEN 1000 MG/100 ML BAG IVPB PRN (19:00)
[2023-03-31] MEDS: ASCORBIC ACID 500 MG TABLET (FP) PO SCH (22:52)
[2023-04-01] MEDS: CEFEPIME 2 GM in DEXTROSE 5%-WATER 100 ML IVPB SCH ×2 (04:58→18:22)
[2023-04-01] MEDS ORDERED: VANCOMYCIN/WATER FOR INJ (PEG) 1,000 MG/200 ML BAG IVPB SCH (05:00)
[2023-04-01] MEDS: AMINO ACIDS/PROTEIN HYDROLYS 30 ML LIQUID.PKT PO SCH ×5 (08:11→16:40)
[2023-04-01] MEDS: MULTIVITAMINS (DAILY MVI) TABLET (FP) PO SCH ×2 (11:00→11:10)
[2023-04-01] MEDS: ASCORBIC ACID 500 MG TABLET (FP) PO SCH ×3 (11:00→23:13)
[2023-04-01] MEDS: SODIUM CHLORIDE 1,000 ML IV SCH (16:03)
[2023-04-01] MEDS: INSULIN SLIDING SCALE (NOVOLOG) 1 VIAL SQ SCH ×2 (16:21→21:56)
[2023-04-01] MEDS: INSULIN (LEVEMIR) 100 UNITS/ML UNITS SQ SCH (21:56)
[2023-04-02] MEDS ORDERED: VANCOMYCIN/WATER FOR INJ (PEG) 750 MG/150 ML BAG IVPB SCH (05:00)
[2023-04-02] MEDS: CEFEPIME 2 GM in DEXTROSE 5%-WATER 100 ML IVPB SCH ×2 (06:04→18:02)
[2023-04-02] MEDS: INSULIN SLIDING SCALE (NOVOLOG) 1 VIAL SQ SCH ×4 (06:33→22:28)
[2023-04-02] MEDS: INSULIN (LEVEMIR) 100 UNITS/ML UNITS SQ SCH ×2 (06:33→22:42)
[2023-04-02] MEDS: AMINO ACIDS/PROTEIN HYDROLYS 30 ML LIQUID.PKT PO SCH ×3 (08:52→17:59)
[2023-04-02 09:53] LABS: MCH 24.1 pg (25.7-33.7); MCHC 31.2 g/dl (32.0-36.0); MEAN CELL VOLUME 77.4 fl (80-96); MEAN PLT VOLUME 8.7 fl (7.5-11.1); PLATELET COUNT 372 10^3/uL (134-434); RBC 4.14 M/mm3 (3.60-5.2); RDW 17.6 % (11.6-15.6); WHITE BLOOD COUNT 10.7 K/mm3 (4.0-10.0)
[2023-04-02 10:02] LABS: POTASSIUM 3.1 mmol/L (3.5-5.1)
[2023-04-02] MEDS: ASCORBIC ACID 500 MG TABLET (FP) PO SCH ×2 (10:04→22:25)
[2023-04-02] MEDS: MULTIVITAMINS (DAILY MVI) TABLET (FP) PO SCH (10:05)
[2023-04-02] MEDS: metoPROLOL SUCCINATE 25 MG TAB.SR.24H (FP) PO SCH (10:05)
[2023-04-02] MEDS: amLODIPine BESYLATE 10 MG TABLET (FP) PO SCH (10:05)
[2023-04-02 10:08] LABS: CALCIUM 7.8 mg/dL (8.5-10.1)
[2023-04-02 10:09] LABS: BLOOD UREA NITROGEN 6.4 mg/dL (7-18)
[2023-04-02 10:12] LABS: CREATININE 0.6 mg/dL (0.55-1.3)
[2023-04-02] MEDS: traMADol HCL 50 MG TABLET PO PRN (12:15)
[2023-04-02] MEDS: SODIUM CHLORIDE 1,000 ML IV SCH (12:27)
[2023-04-03] MEDS: VANCOMYCIN/WATER FOR INJ (PEG) 750 MG/150 ML BAG IVPB SCH (05:59)
[2023-04-03] MEDS: INSULIN (LEVEMIR) 100 UNITS/ML UNITS SQ SCH (07:00)
[2023-04-03] MEDS: INSULIN SLIDING SCALE (NOVOLOG) 1 VIAL SQ SCH ×3 (07:01→16:57)
[2023-04-03] MEDS: CEFEPIME 2 GM in DEXTROSE 5%-WATER 100 ML IVPB SCH ×2 (07:24→18:11)
[2023-04-03] MEDS: AMINO ACIDS/PROTEIN HYDROLYS 30 ML LIQUID.PKT PO SCH ×3 (08:23→17:08)
[2023-04-03] MEDS ORDERED: POTASSIUM CHLORIDE ORAL LIQUID 20 MEQ/15 ML PO ONE (09:00)
[2023-04-03] MEDS: MULTIVITAMINS (DAILY MVI) TABLET (FP) PO SCH (09:29)
[2023-04-03] MEDS: amLODIPine BESYLATE 10 MG TABLET (FP) PO SCH (09:29)
[2023-04-03] MEDS: ASCORBIC ACID 500 MG TABLET (FP) PO SCH ×2 (09:29→21:35)
[2023-04-03] MEDS: metoPROLOL SUCCINATE 25 MG TAB.SR.24H (FP) PO SCH (09:29)
[2023-04-03] MEDS ORDERED: SODIUM CHLORIDE 0.45%/POT 20 MEQ/1,000 ML INFUS.BAG IV SCH (12:30)
[2023-04-03] MEDS: traMADol HCL 50 MG TABLET PO PRN (13:10)
[2023-04-04] MEDS: INSULIN SLIDING SCALE (NOVOLOG) 1 VIAL SQ SCH ×6 (02:28→23:07)
[2023-04-04] MEDS: INSULIN (LEVEMIR) 100 UNITS/ML UNITS SQ SCH ×4 (02:28→23:07)
[2023-04-04] MEDS: CEFEPIME 2 GM in DEXTROSE 5%-WATER 100 ML IVPB SCH ×2 (05:35→17:50)
[2023-04-04] MEDS: VANCOMYCIN/WATER FOR INJ (PEG) 750 MG/150 ML BAG IVPB SCH (06:25)
[2023-04-04] MEDS: AMINO ACIDS/PROTEIN HYDROLYS 30 ML LIQUID.PKT PO SCH ×4 (09:13→17:18)
[2023-04-04 09:32] LABS: POTASSIUM 3.3 mmol/L (3.5-5.1)
[2023-04-04 09:34] LABS: CALCIUM 7.2 mg/dL (8.5-10.1)
[2023-04-04 09:35] LABS: ALBUMIN 1.7 g/dl (3.4-5.0); MAGNESIUM 1.2 mg/dL (1.8-2.4)
[2023-04-04 09:36] LABS: BLOOD UREA NITROGEN 5.5 mg/dL (7-18)
[2023-04-04 09:38] LABS: CREATININE 0.6 mg/dL (0.55-1.3)
[2023-04-04 09:40] LABS: BILIRUBIN,TOTAL 1.2 mg/dL (0.2-1); TOT PROT 5.7 g/dl (6.4-8.2)
[2023-04-04] MEDS: MULTIVITAMINS (DAILY MVI) TABLET (FP) PO SCH ×2 (10:21→10:36)
[2023-04-04] MEDS: metoPROLOL SUCCINATE 25 MG TAB.SR.24H (FP) PO SCH ×2 (10:22→10:36)
[2023-04-04] MEDS: amLODIPine BESYLATE 10 MG TABLET (FP) PO SCH ×2 (10:22→10:35)
[2023-04-04] MEDS: ASCORBIC ACID 500 MG TABLET (FP) PO SCH ×3 (10:22→23:08)
[2023-04-04] MEDS ORDERED: POTASSIUM CHLORIDE ORAL LIQUID 20 MEQ/15 ML PO ONE (11:45)
[2023-04-04] MEDS: MAGNESIUM SULF 50% (8.12 MEQ/2 ML-1 GM VIAL) IVPB SCH ×2 (12:46→21:56)
[2023-04-04] MEDS: KCL 10 MEQ IVPB 10 MEQ/100 ML INFUS.BAG IVPB SCH ×3 (13:39→19:29)
[2023-04-04] MEDS ORDERED: ONDANSETRON 4 MG/2 ML VIAL IVPUSH PRN (14:52)
[2023-04-04] MEDS: ALBUTEROL SO4 2.5/IPRATROPIUM 0.5 INH SOL 3 ML VIAL.NEB. NEB SCH ×2 (15:45→20:05)
[2023-04-05] MEDS: VANCOMYCIN/WATER FOR INJ (PEG) 750 MG/150 ML BAG IVPB SCH (05:33)
[2023-04-05] MEDS: CEFEPIME 2 GM in DEXTROSE 5%-WATER 100 ML IVPB SCH ×2 (05:34→17:28)
[2023-04-05] MEDS: INSULIN SLIDING SCALE (NOVOLOG) 1 VIAL SQ SCH ×4 (07:38→21:26)
[2023-04-05] MEDS: INSULIN (LEVEMIR) 100 UNITS/ML UNITS SQ SCH ×2 (07:38→21:26)
[2023-04-05] MEDS: ALBUTEROL SO4 2.5/IPRATROPIUM 0.5 INH SOL 3 ML VIAL.NEB. NEB SCH ×4 (07:55→20:35)
[2023-04-05] MEDS: AMINO ACIDS/PROTEIN HYDROLYS 30 ML LIQUID.PKT PO SCH ×3 (08:42→17:28)
[2023-04-05 09:37] LABS: POTASSIUM 3.5 mmol/L (3.5-5.1)
[2023-04-05] MEDS: MULTIVITAMINS (DAILY MVI) TABLET (FP) PO SCH (09:41)
[2023-04-05] MEDS: amLODIPine BESYLATE 10 MG TABLET (FP) PO SCH (09:41)
[2023-04-05] MEDS: ASCORBIC ACID 500 MG TABLET (FP) PO SCH ×2 (09:42→21:26)
[2023-04-05] MEDS: metoPROLOL SUCCINATE 25 MG TAB.SR.24H (FP) PO SCH (09:42)
[2023-04-05 09:44] LABS: CALCIUM 7.8 mg/dL (8.5-10.1)
[2023-04-05 09:45] LABS: ALBUMIN 1.7 g/dl (3.4-5.0); MAGNESIUM 2.3 mg/dL (1.8-2.4)
[2023-04-05 09:48] LABS: CREATININE 0.6 mg/dL (0.55-1.3)
[2023-04-05 09:49] LABS: BILIRUBIN,TOTAL 0.3 mg/dL (0.2-1)
[2023-04-05 09:51] LABS: TOT PROT 5.5 g/dl (6.4-8.2)
[2023-04-06] MEDS: VANCOMYCIN/WATER FOR INJ (PEG) 750 MG/150 ML BAG IVPB SCH (05:17)
[2023-04-06] MEDS: INSULIN SLIDING SCALE (NOVOLOG) 1 VIAL SQ SCH ×4 (06:22→21:34)
[2023-04-06] MEDS: CEFEPIME 2 GM in DEXTROSE 5%-WATER 100 ML IVPB SCH ×2 (06:23→17:49)
[2023-04-06] MEDS: INSULIN (LEVEMIR) 100 UNITS/ML UNITS SQ SCH ×2 (06:23→21:24)
[2023-04-06] MEDS: ALBUTEROL SO4 2.5/IPRATROPIUM 0.5 INH SOL 3 ML VIAL.NEB. NEB SCH ×4 (07:45→20:05)
[2023-04-06] MEDS: MULTIVITAMINS (DAILY MVI) TABLET (FP) PO SCH (10:38)
[2023-04-06] MEDS: AMINO ACIDS/PROTEIN HYDROLYS 30 ML LIQUID.PKT PO SCH ×4 (10:38→17:57)
[2023-04-06] MEDS: ASCORBIC ACID 500 MG TABLET (FP) PO SCH ×2 (10:38→23:56)
[2023-04-06] MEDS: metoPROLOL SUCCINATE 25 MG TAB.SR.24H (FP) PO SCH (10:38)
[2023-04-06] MEDS: amLODIPine BESYLATE 10 MG TABLET (FP) PO SCH (10:39)
[2023-04-06] MEDS ORDERED: INSULIN (NOVOLOG) ASPART 100 UNITS/ML 10ML VIAL ONE (21:07)
[2023-04-07] MEDS: VANCOMYCIN/WATER FOR INJ (PEG) 750 MG/150 ML BAG IVPB SCH (04:20)
[2023-04-07] MEDS: CEFEPIME 2 GM in DEXTROSE 5%-WATER 100 ML IVPB SCH ×2 (05:46→17:27)
[2023-04-07] MEDS ORDERED: INSULIN (NOVOLOG) ASPART 100 UNITS/ML 10ML VIAL ONE ×3 (06:14→21:08)
[2023-04-07] MEDS: INSULIN (LEVEMIR) 100 UNITS/ML UNITS SQ SCH ×2 (06:28→21:27)
[2023-04-07] MEDS: INSULIN SLIDING SCALE (NOVOLOG) 1 VIAL SQ SCH ×4 (06:28→21:27)
[2023-04-07] MEDS: ALBUTEROL SO4 2.5/IPRATROPIUM 0.5 INH SOL 3 ML VIAL.NEB. NEB SCH ×4 (08:15→20:00)
[2023-04-07] MEDS: AMINO ACIDS/PROTEIN HYDROLYS 30 ML LIQUID.PKT PO SCH ×3 (09:24→17:27)
[2023-04-07] MEDS: metoPROLOL SUCCINATE 25 MG TAB.SR.24H (FP) PO SCH (09:24)
[2023-04-07] MEDS: MULTIVITAMINS (DAILY MVI) TABLET (FP) PO SCH (09:24)
[2023-04-07] MEDS: ASCORBIC ACID 500 MG TABLET (FP) PO SCH ×2 (09:24→21:28)
[2023-04-07] MEDS: amLODIPine BESYLATE 10 MG TABLET (FP) PO SCH (09:24)
[2023-04-08] MEDS: CEFEPIME 2 GM in DEXTROSE 5%-WATER 100 ML IVPB SCH ×2 (06:17→17:31)
[2023-04-08] MEDS: INSULIN SLIDING SCALE (NOVOLOG) 1 VIAL SQ SCH ×4 (06:22→21:41)
[2023-04-08] MEDS: INSULIN (LEVEMIR) 100 UNITS/ML UNITS SQ SCH ×2 (06:22→21:41)
[2023-04-08] MEDS: VANCOMYCIN/WATER FOR INJ (PEG) 750 MG/150 ML BAG IVPB SCH (06:23)
[2023-04-08] MEDS ORDERED: INSULIN (NOVOLOG) ASPART 100 UNITS/ML 10ML VIAL ONE ×2 (06:46→21:10)
[2023-04-08] MEDS ORDERED: INSULIN (LEVEMIR) 100 UNITS/ML UNITS SQ ONE (06:47)
[2023-04-08] MEDS: ALBUTEROL SO4 2.5/IPRATROPIUM 0.5 INH SOL 3 ML VIAL.NEB. NEB SCH ×4 (07:55→20:30)
[2023-04-08] MEDS: AMINO ACIDS/PROTEIN HYDROLYS 30 ML LIQUID.PKT PO SCH ×3 (09:09→17:38)
[2023-04-08] MEDS: amLODIPine BESYLATE 10 MG TABLET (FP) PO SCH (09:10)
[2023-04-08] MEDS: MULTIVITAMINS (DAILY MVI) TABLET (FP) PO SCH (09:10)
[2023-04-08] MEDS: metoPROLOL SUCCINATE 25 MG TAB.SR.24H (FP) PO SCH (09:10)
[2023-04-08] MEDS: ASCORBIC ACID 500 MG TABLET (FP) PO SCH ×2 (09:10→21:18)
[2023-04-08] MEDS: NYSTATIN POWDER 100,000 UNITS/GM - 15 GM TOPICAL POWDER TP SCH ×2 (18:07→21:19)
[2023-04-09] MEDS: VANCOMYCIN/WATER FOR INJ (PEG) 750 MG/150 ML BAG IVPB SCH (04:32)
[2023-04-09] MEDS: CEFEPIME 2 GM in DEXTROSE 5%-WATER 100 ML IVPB SCH ×2 (06:27→17:11)
[2023-04-09] MEDS: INSULIN (LEVEMIR) 100 UNITS/ML UNITS SQ SCH ×2 (06:30→23:32)
[2023-04-09] MEDS: INSULIN SLIDING SCALE (NOVOLOG) 1 VIAL SQ SCH ×4 (06:31→23:37)
[2023-04-09] MEDS: ALBUTEROL SO4 2.5/IPRATROPIUM 0.5 INH SOL 3 ML VIAL.NEB. NEB SCH ×2 (07:59→11:21)
[2023-04-09] MEDS: AMINO ACIDS/PROTEIN HYDROLYS 30 ML LIQUID.PKT PO SCH ×3 (08:42→16:52)
[2023-04-09 09:28] LABS: HEMATOCRIT 32.6 % (32.4-45.2); HEMOGLOBIN 10.2 GM/dL (10.7-15.3); MCHC 31.2 g/dl (32.0-36.0); MEAN CELL VOLUME 76.9 fl (80-96); MEAN PLT VOLUME 7.7 fl (7.5-11.1); NEUT % 63.6 % (42.8-82.8); PLATELET COUNT 445 10^3/uL (134-434); RBC 4.24 M/mm3 (3.60-5.2); RDW 19.2 % (11.6-15.6); WHITE BLOOD COUNT 7.6 K/mm3 (4.0-10.0)
[2023-04-09 09:29] LABS: BASO % 0.3 % (0-2.0); EOS % 2.1 % (0-4.5)
[2023-04-09] MEDS: amLODIPine BESYLATE 10 MG TABLET (FP) PO SCH (09:37)
[2023-04-09] MEDS: MULTIVITAMINS (DAILY MVI) TABLET (FP) PO SCH (09:37)
[2023-04-09] MEDS: metoPROLOL SUCCINATE 25 MG TAB.SR.24H (FP) PO SCH (09:37)
[2023-04-09] MEDS: ASCORBIC ACID 500 MG TABLET (FP) PO SCH ×2 (09:37→23:32)
[2023-04-09] MEDS: NYSTATIN POWDER 100,000 UNITS/GM - 15 GM TOPICAL POWDER TP SCH ×2 (09:38→23:33)
[2023-04-09 09:47] LABS: POTASSIUM 3.6 mmol/L (3.5-5.1)
[2023-04-09 10:00] LABS: ALBUMIN 1.8 g/dl (3.4-5.0); BLOOD UREA NITROGEN 8.9 mg/dL (7-18); CALCIUM 8.3 mg/dL (8.5-10.1)
[2023-04-09 10:03] LABS: CREATININE 0.6 mg/dL (0.55-1.3)
[2023-04-09 10:04] LABS: BILIRUBIN,TOTAL 0.4 mg/dL (0.2-1); TOT PROT 5.8 g/dl (6.4-8.2)
[2023-04-09] MEDS ORDERED: INSULIN (NOVOLOG) ASPART 100 UNITS/ML 10ML VIAL ONE (23:25)
[2023-04-10] MEDS: CEFEPIME 2 GM in DEXTROSE 5%-WATER 100 ML IVPB SCH ×2 (05:26→18:25)
[2023-04-10] MEDS: INSULIN SLIDING SCALE (NOVOLOG) 1 VIAL SQ SCH ×4 (06:09→22:16)
[2023-04-10] MEDS: INSULIN (LEVEMIR) 100 UNITS/ML UNITS SQ SCH ×2 (06:10→22:16)
[2023-04-10] MEDS: ASCORBIC ACID 500 MG TABLET (FP) PO SCH ×2 (10:04→22:19)
[2023-04-10] MEDS: amLODIPine BESYLATE 10 MG TABLET (FP) PO SCH (10:04)
[2023-04-10] MEDS: MULTIVITAMINS (DAILY MVI) TABLET (FP) PO SCH (10:04)
[2023-04-10] MEDS: metoPROLOL SUCCINATE 25 MG TAB.SR.24H (FP) PO SCH (10:04)
[2023-04-10] MEDS: AMINO ACIDS/PROTEIN HYDROLYS 30 ML LIQUID.PKT PO SCH ×3 (10:04→17:09)
[2023-04-10] MEDS: ENOXAPARIN NA (PORCINE) 40 MG/0.4 ML DISP.SYRIN SQ SCH (10:04)
[2023-04-10] MEDS: NYSTATIN POWDER 100,000 UNITS/GM - 15 GM TOPICAL POWDER TP SCH ×2 (10:22→22:12)
[2023-04-11 04:20] VITALS: RESP 18
[2023-04-11] MEDS: CEFEPIME 2 GM in DEXTROSE 5%-WATER 100 ML IVPB SCH ×2 (05:15→18:39)
[2023-04-11] MEDS: INSULIN SLIDING SCALE (NOVOLOG) 1 VIAL SQ SCH ×4 (06:03→21:37)
[2023-04-11] MEDS: INSULIN (LEVEMIR) 100 UNITS/ML UNITS SQ SCH ×2 (06:04→21:38)
[2023-04-11] MEDS: AMINO ACIDS/PROTEIN HYDROLYS 30 ML LIQUID.PKT PO SCH ×3 (09:23→17:12)
[2023-04-11] MEDS: ENOXAPARIN NA (PORCINE) 40 MG/0.4 ML DISP.SYRIN SQ SCH (09:24)
[2023-04-11] MEDS: MULTIVITAMINS (DAILY MVI) TABLET (FP) PO SCH (09:24)
[2023-04-11] MEDS: NYSTATIN POWDER 100,000 UNITS/GM - 15 GM TOPICAL POWDER TP SCH ×2 (09:24→21:39)
[2023-04-11] MEDS: amLODIPine BESYLATE 10 MG TABLET (FP) PO SCH (09:24)
[2023-04-11] MEDS: ASCORBIC ACID 500 MG TABLET (FP) PO SCH ×2 (09:24→21:39)
[2023-04-11] MEDS: metoPROLOL SUCCINATE 25 MG TAB.SR.24H (FP) PO SCH (09:24)
[2023-04-11] MEDS ORDERED: INSULIN (NOVOLOG) ASPART 100 UNITS/ML 10ML VIAL ONE (21:08)
[2023-04-12] MEDS: CEFEPIME 2 GM in DEXTROSE 5%-WATER 100 ML IVPB SCH ×2 (06:01→17:23)
[2023-04-12] MEDS: INSULIN SLIDING SCALE (NOVOLOG) 1 VIAL SQ SCH ×3 (06:07→17:22)
[2023-04-12] MEDS: INSULIN (LEVEMIR) 100 UNITS/ML UNITS SQ SCH (06:21)
[2023-04-12] MEDS: AMINO ACIDS/PROTEIN HYDROLYS 30 ML LIQUID.PKT PO SCH ×3 (08:31→17:23)
[2023-04-12] MEDS: ENOXAPARIN NA (PORCINE) 40 MG/0.4 ML DISP.SYRIN SQ SCH (09:49)
[2023-04-12] MEDS: ASCORBIC ACID 500 MG TABLET (FP) PO SCH (09:49)
[2023-04-12] MEDS: amLODIPine BESYLATE 10 MG TABLET (FP) PO SCH (09:49)
[2023-04-12] MEDS: MULTIVITAMINS (DAILY MVI) TABLET (FP) PO SCH (09:49)
[2023-04-12] MEDS: metoPROLOL SUCCINATE 25 MG TAB.SR.24H (FP) PO SCH (09:49)
[2023-04-12] MEDS: NYSTATIN POWDER 100,000 UNITS/GM - 15 GM TOPICAL POWDER TP SCH (09:50)
[2023-04-12 13:08] VITALS: TEMP 98
[2023-04-12 14:19] VITALS: BP 145/61; PULSE 71
== END 2023-04-12 18:20 | DRG 580 ==
LOC: JER 12:51 → JERBED 17:07 → J5S 21:44 → J6S 04-06 13:25
PROVIDERS: ADMIT Internal Medicine; ATTEND Family Medicine
PROC: 0W9F0ZX Drainage of Abdominal Wall, Open Approach, Diagnostic (ICD-10-PCS; principal; 2023-04-03)
DX: L02.211 Cutaneous abscess of abdominal wall (principal); I50.32 Chronic diastolic (congestive) heart failure; Z89.619 Acquired absence of unspecified leg above knee; E11.65 Type 2 diabetes mellitus with hyperglycemia; F03.90 Unspecified dementia, unspecified severity, without behavioral disturbance, psychotic disturbance, mood disturbance, and anxiety; K52.9 Noninfective gastroenteritis and colitis, unspecified; I10 Essential (primary) hypertension; E78.5 Hyperlipidemia, unspecified
CPT/HCPCS: 36415; 71045-TC-FY; 74177-TC; 80048; 80053; 81003; 82803; 82962; 83605; 83735; 84100; 85025; 85027; 85610; 85730; 86850; 86900; 86901; 87040; 87070; 87086; 87205; 93005; 93010; 94640; 94760; 97116-GP; 97161-GP; 99285-25; G0480; J3480; Q9967

== ENCOUNTER 2024-08-17 15:58 | Inpatient (IN) | payer OTHER ==
[2024-08-17 17:25] LABS: INR 1.12 (0.83-1.09); PROTHROMBIN TIME (PATIENT) 12.8 SEC (9.7-13.0)
[2024-08-17 17:28] LABS: ACTIVATED PTT 27.9 SECONDS (25.2-36.5)
[2024-08-17 17:36] LABS: VENOUS BASE EXCESS 6.8 mmol/L (-2-2); VENOUS O2 SATURATION 20.5 % (70-80); VENOUS PH 7.266 (7.310-7.410)
[2024-08-17 17:40] LABS: CHLORIDE 99 mmol/L (98-107); POTASSIUM 4.4 mmol/L (3.5-5.1); SODIUM 139 mmol/L (136-145)
[2024-08-17 17:41] LABS: VENOUS PCO2 82.2 mmHg (38-52)
[2024-08-17 17:43] LABS: ALBUMIN 1.7 g/dl (3.4-5.0); ANION GAP 5 mmol/L (4-13); BLOOD UREA NITROGEN 40.8 mg/dL (7-18); CALCIUM 8.1 mg/dL (8.5-10.1); CO2 35 mmol/L (21-32)
[2024-08-17 17:46] LABS: CREATININE 1.5 mg/dL (0.55-1.3); SGOT/AST 23 U/L (15-37); SGPT/ALT 17 U/L (13-61)
[2024-08-17 17:48] LABS: BILIRUBIN,TOTAL 0.6 mg/dL (0.2-1); LDH 350 U/L (84-246); TOT PROT 4.8 g/dl (6.4-8.2)
[2024-08-17 17:49] LABS: ALK PHOS 89 U/L (45-117)
[2024-08-17 18:06] LABS: GLUCOSE,RANDOM 40 mg/dL (74-106)
[2024-08-17] MEDS ORDERED: DEXTROSE 50%-WATER 25 GM/50 ML DISP.SYRIN ONE (18:10)
[2024-08-17] MEDS: DEXTROSE 50%-WATER 25 GM/50 ML DISP.SYRIN IVPUSH ONE (18:14)
[2024-08-17 18:30] LABS: ARTERIAL BLD GAS O2 SATURATION 94.5 % (95-98); ARTERIAL BLOOD GAS BASE EXCESS 6.1 mmol/L (-2-2); ARTERIAL BLOOD GAS PO2 72.3 mmHg (80-100); ARTERIAL BLOOD GAS pH 7.409 (7.350-7.450)
[2024-08-17 18:32] LABS: ALLENS TEST POSITIVE
[2024-08-17 18:35] LABS: HEMOGLOBIN 10.5 GM/dL (10.7-15.3); MCH 24.1 pg (25.7-33.7); MCHC 29.1 g/dl (32.0-36.0); MEAN CELL VOLUME 82.7 fl (80-96); MEAN PLT VOLUME 8.7 fl (7.5-11.1); PLATELET COUNT 202 10^3/uL (134-434); RBC 4.35 M/mm3 (3.60-5.2); RDW 19.7 % (11.6-15.6); RETICULOCYTES 1.17 % (0.5-1.5)
[2024-08-17 18:36] LABS: ADD RBC MORPHOLOGY YES
[2024-08-17 18:43] LABS: TOTAL IRON BINDING CAPACITY 181 ug/dL (250-450)
[2024-08-17] MEDS ORDERED: AZITHROMYCIN IVPB 500 MG/250 ML BAG IVPB ONE (18:51)
[2024-08-17] MEDS ORDERED: CEFEPIME 1 GM/100 ML BAG IVPB ONE (18:51)
[2024-08-17] MEDS ORDERED: VANCOMYCIN 1 GRAM (PRE-DOCKED) 1,000 MG/250 ML BAG IVPB ONE (18:51)
[2024-08-17 19:07] LABS: IRON SERUM 7 ug/dL (50-175)
[2024-08-17] MEDS: CEFEPIME HCL 1 GM VIAL (RESTRICTED TO ID) IVPB ONE (19:09)
[2024-08-17 19:22] LABS: ANISOCYTOSIS 1+; MACROCYTOSIS 0; OVALOCYTE 1+
[2024-08-17] MEDS: AZITHROMYCIN IVPB 500 MG in DEXTROSE 5%-WATER - 250 ML IVPB ONE (20:01)
[2024-08-17] MEDS: VANCOMYCIN 1,000 MG in DEXTROSE 5%-WATER - 250 ML IVPB ONE (21:59)
[2024-08-17 23:29] LABS: HEMATOCRIT 35.2 % (32.4-45.2); HEMOGLOBIN 10.4 GM/dL (10.7-15.3); MCH 24.5 pg (25.7-33.7); MCHC 29.6 g/dl (32.0-36.0); MEAN CELL VOLUME 82.7 fl (80-96); MEAN PLT VOLUME 8.3 fl (7.5-11.1); PLATELET COUNT 208 10^3/uL (134-434); RBC 4.25 M/mm3 (3.60-5.2); RDW 18.9 % (11.6-15.6); WHITE BLOOD COUNT 16.5 K/mm3 (4.0-10.0)
[2024-08-18 02:23] LABS: ANISOCYTOSIS 2+; MACROCYTOSIS 1+; OVALOCYTE 1+; TEAR DROP CELLS 1+
[2024-08-18] MEDS: ACETAMINOPHEN 1000 MG/100 ML BAG IVPB PRN (04:52)
[2024-08-18] MEDS: SODIUM CHLORIDE 500 ML IV STA ×2 (05:59→08:45)
[2024-08-18] MEDS: DEXTROSE 5%-0.45% SALINE 1,000 ML IV SCH (06:13)
[2024-08-18] MEDS: SODIUM CHLORIDE 1,000 ML IV SCH (08:30)
[2024-08-18 08:48] LABS: HEMATOCRIT 29.6 % (32.4-45.2); HEMOGLOBIN 8.9 GM/dL (10.7-15.3); MCH 24.5 pg (25.7-33.7); MCHC 30.1 g/dl (32.0-36.0); MEAN CELL VOLUME 81.4 fl (80-96); MEAN PLT VOLUME 8.5 fl (7.5-11.1); PLATELET COUNT 167 10^3/uL (134-434); RBC 3.64 M/mm3 (3.60-5.2); RDW 19.2 % (11.6-15.6); WHITE BLOOD COUNT 13.6 K/mm3 (4.0-10.0)
[2024-08-18 09:48] LABS: POTASSIUM 3.5 mmol/L (3.5-5.1)
[2024-08-18 09:52] LABS: ANISOCYTOSIS 1+; BLOOD UREA NITROGEN 52.5 mg/dL (7-18); MACROCYTOSIS 0
[2024-08-18 09:56] LABS: CREATININE 2.6 mg/dL (0.55-1.3)
[2024-08-18] MEDS ORDERED: CEFEPIME 1 GM/100 ML BAG IVPB ONE (12:01)
[2024-08-18] MEDS ORDERED: methylPREDNISolone NA SUCC 40 MG/1 ML VIAL ONE (12:01)
[2024-08-18] MEDS: CEFEPIME HCL/D5W 1 GM/50 ML BAG IVPB SCH (12:09)
[2024-08-18] MEDS: methylPREDNISolone NA SUCC 40 MG/1 ML VIAL IVPUSH SCH (12:10)
[2024-08-18 12:18] LABS: EPI CELLS >36 /uL (0-25.1); HYALINE CASTS 1 /uL (0-3.1); URINE APPEARANCE TURBID; URINE BILIRUBIN 1+ (NEGATIVE); URINE COLOR DK YELLOW; URINE GLUCOSE (UA) NEGATIVE (NEGATIVE); URINE KETONE TRACE (NEGATIVE); URINE LEUK ESTERASE 2+ (NEGATIVE); URINE NITRITE NEGATIVE (NEGATIVE); URINE PROTEIN 3+ (NEGATIVE); URINE WBC 6803 /uL (0-25.8)
[2024-08-18 12:52] LABS: URINE BACTERIA 7667.5 /uL (0-1359); URINE RBC 139.9 /uL (0-23.9); YEAST NEGATIVE (NEGATIVE)
[2024-08-18] MEDS ORDERED: ALBUTEROL SO4 2.5/IPRATROPIUM 0.5 INH SOL 3 ML VIAL.NEB. NEB ONE ×2 (15:01→20:06)
[2024-08-18] MEDS: ALBUTEROL SO4 2.5/IPRATROPIUM 0.5 INH SOL 3 ML VIAL.NEB. NEB SCH (15:05)
[2024-08-18] MEDS ORDERED: CEFEPIME HCL 1 GM VIAL (RESTRICTED TO ID) IVPB SCH (19:00)
[2024-08-18] MEDS ORDERED: VANCOMYCIN/WATER 1250 MG 1,250 MG/250 ML BAG IVPB SCH (21:30)
[2024-08-18] MEDS ORDERED: HEPARIN NA (PORCINE) 5,000 UNITS/ML 1ML VIAL ONE (22:21)
[2024-08-18] MEDS: HEPARIN NA (PORCINE) 5,000 UNITS/ML 1ML VIAL SQ SCH (22:31)
[2024-08-18] MEDS: CEFEPIME 0.5 GM in DEXTROSE 5%-WATER - 100 ML IVPB SCH (22:31)
[2024-08-18] MEDS: DEXTROSE 5%-NORMAL SALINE 1,000 ML IV SCH (22:31)
[2024-08-18] MEDS: VANCOMYCIN/WATER 1250 MG 1,250 MG/250 ML BAG IVPB ONE (22:56)
[2024-08-19] MEDS ORDERED: ALBUTEROL SO4 2.5/IPRATROPIUM 0.5 INH SOL 3 ML VIAL.NEB. NEB ONE (08:55)
[2024-08-19 09:07] LABS: CHLORIDE 96 mmol/L (98-107); POTASSIUM 3.6 mmol/L (3.5-5.1); SODIUM 134 mmol/L (136-145)
[2024-08-19 09:10] LABS: ALBUMIN 1.4 g/dl (3.4-5.0); ANION GAP 13 mmol/L (4-13); BLOOD UREA NITROGEN 64.7 mg/dL (7-18); CO2 25 mmol/L (21-32); MAGNESIUM 1.9 mg/dL (1.8-2.4)
[2024-08-19 09:13] LABS: CREATININE 2.6 mg/dL (0.55-1.3); SGOT/AST 24 U/L (15-37); SGPT/ALT 22 U/L (13-61)
[2024-08-19 09:14] LABS: BILIRUBIN,TOTAL 0.4 mg/dL (0.2-1)
[2024-08-19 09:15] LABS: TOT PROT 4.6 g/dl (6.4-8.2)
[2024-08-19 09:16] LABS: ALK PHOS 93 U/L (45-117)
[2024-08-19 09:40] LABS: GLUCOSE,RANDOM 550 mg/dL (74-106)
[2024-08-19] MEDS: INSULIN (LEVEMIR) 100 UNITS/ML UNITS SQ SCH (10:54)
[2024-08-19] MEDS: INSULIN ASPART SLIDING SCALE (NOVOLOG) 1 VIAL SQ SCH (10:55)
[2024-08-19] MEDS: IRON SUCROSE INJECTION 200 MG in SODIUM CHLORIDE 100 ML IVPB ONE (11:31)
[2024-08-19] MEDS: SODIUM CHLORIDE 0.45% 1,000 ML IV SCH (16:37)
[2024-08-19 18:38] LABS: URINE APPEARANCE CLOUDY; URINE COLOR YELLOW; URINE GLUCOSE (UA) >1000 mg/dl (NEGATIVE)
[2024-08-19 18:39] LABS: URINE BILIRUBIN NEGATIVE (NEGATIVE); URINE KETONE TRACE (NEGATIVE); URINE LEUK ESTERASE NEGATIVE (NEGATIVE); URINE NITRITE NEGATIVE (NEGATIVE); URINE PROTEIN 100 (NEGATIVE); URINE UROBILINOGEN 0.2 mg/dL (0.2-1.0)
[2024-08-20] MEDS: INSULIN (LEVEMIR) 100 UNITS/ML UNITS SQ SCH (06:11)
[2024-08-20 18:44] LABS: HEMATOCRIT 26.5 % (32.4-45.2); HEMOGLOBIN 7.9 GM/dL (10.7-15.3); MCH 23.9 pg (25.7-33.7); MCHC 29.9 g/dl (32.0-36.0); MEAN CELL VOLUME 79.8 fl (80-96); MEAN PLT VOLUME 8.3 fl (7.5-11.1); PLATELET COUNT 206 10^3/uL (134-434); RBC 3.32 M/mm3 (3.60-5.2); RDW 19.2 % (11.6-15.6); WHITE BLOOD COUNT 13.7 K/mm3 (4.0-10.0)
[2024-08-20 19:34] LABS: ANISOCYTOSIS 1+; MACROCYTOSIS 0; OVALOCYTE 1+
[2024-08-20] MEDS: ALBUTEROL SO4 2.5/IPRATROPIUM 0.5 INH SOL 3 ML VIAL.NEB. NEB SCH (20:00)
[2024-08-20] MEDS: HEPARIN NA (PORCINE) 5,000 UNITS/ML 1ML VIAL SQ SCH (21:50)
[2024-08-20] MEDS: CEFEPIME 0.5 GM in DEXTROSE 5%-WATER - 100 ML IVPB SCH (22:56)
[2024-08-20 23:20] VITALS: RESP 18
[2024-08-20 23:41] VITALS: BMI 32.8
[2024-08-21] MEDS: methylPREDNISolone NA SUCC 40 MG/1 ML VIAL IVPUSH SCH (09:23)
[2024-08-21 10:10] LABS: HEMATOCRIT 27.6 % (32.4-45.2); HEMOGLOBIN 8.2 GM/dL (10.7-15.3); MCH 23.8 pg (25.7-33.7); MCHC 29.8 g/dl (32.0-36.0); MEAN CELL VOLUME 79.8 fl (80-96); MEAN PLT VOLUME 8.3 fl (7.5-11.1); PLATELET COUNT 231 10^3/uL (134-434); RBC 3.46 M/mm3 (3.60-5.2); RDW 19.1 % (11.6-15.6); WHITE BLOOD COUNT 11.6 K/mm3 (4.0-10.0)
[2024-08-21 10:46] LABS: CHLORIDE 103 mmol/L (98-107); SODIUM 140 mmol/L (136-145)
[2024-08-21 10:48] LABS: POTASSIUM 2.9 mmol/L (3.5-5.1)
[2024-08-21 10:50] LABS: ANION GAP 9 mmol/L (4-13); BLOOD UREA NITROGEN 51.6 mg/dL (7-18); CO2 28 mmol/L (21-32); GLUCOSE,RANDOM 118 mg/dL (74-106)
[2024-08-21 10:53] LABS: CREATININE 1.3 mg/dL (0.55-1.3); SGOT/AST 21 U/L (15-37); SGPT/ALT 30 U/L (13-61)
[2024-08-21 10:54] LABS: BILIRUBIN,TOTAL 0.4 mg/dL (0.2-1); TOT PROT 4.9 g/dl (6.4-8.2)
[2024-08-21 10:56] LABS: ALK PHOS 88 U/L (45-117)
[2024-08-21 11:00] LABS: ANISOCYTOSIS 0; HELMET CELLS 0; HOWELL-JOLLY BODIES 0; MACROCYTOSIS 0; OVALOCYTE 0; ROULEAU 0; SICKELED CELLS 0; TARGET CELLS 0; TEAR DROP CELLS 0; TOXIC GRANULATION 0
[2024-08-21 11:13] LABS: ALBUMIN 1.7 g/dl (3.4-5.0); CALCIUM 8.2 mg/dL (8.5-10.1)
[2024-08-21] MEDS: POTASSIUM CHLORIDE ORAL LIQUID 20 MEQ/15 ML PO ONE (12:30)
[2024-08-21] MEDS: KCL 10 MEQ IVPB 10 MEQ/100 ML INFUS.BAG IVPB SCH (12:30)
[2024-08-21] MEDS: SODIUM CHLORIDE 0.45% 1,000 ML IV SCH (16:35)
[2024-08-22] MEDS: metoPROLOL SUCCINATE 25 MG TAB.SR.24H (FP) PO ONE ×2 (06:10→06:34)
[2024-08-22 10:20] LABS: POTASSIUM 3.4 mmol/L (3.5-5.1)
[2024-08-22 10:23] LABS: CALCIUM 8.3 mg/dL (8.5-10.1)
[2024-08-22 10:24] LABS: ALBUMIN 1.8 g/dl (3.4-5.0); BLOOD UREA NITROGEN 32.6 mg/dL (7-18); MAGNESIUM 1.9 mg/dL (1.8-2.4)
[2024-08-22 10:25] LABS: CREATININE 0.9 mg/dL (0.55-1.3)
[2024-08-22 10:28] LABS: BILIRUBIN,TOTAL 0.3 mg/dL (0.2-1)
[2024-08-22 10:29] LABS: TOT PROT 4.9 g/dl (6.4-8.2)
[2024-08-22] MEDS: POTASSIUM CHLORIDE ORAL LIQUID 20 MEQ/15 ML PO ONE (12:25)
[2024-08-22] MEDS: SODIUM CHLORIDE 0.45% 1,000 ML IV SCH (21:51)
[2024-08-22 22:17] VITALS: BP 157/57; PULSE 88; TEMP 99
== END 2024-08-23 00:49 | DRG 871 ==
LOC: JER 15:58 → JERBED 18:42 → J6S 08-19 09:54
PROVIDERS: ADMIT Internal Medicine; ATTEND Family Medicine
DX: A41.9 Sepsis, unspecified organism (principal); G92.8 Other toxic encephalopathy; J18.9 Pneumonia, unspecified organism; K57.91 Diverticulosis of intestine, part unspecified, without perforation or abscess with bleeding; R53.2 Functional quadriplegia; N17.9 Acute kidney failure, unspecified; I50.32 Chronic diastolic (congestive) heart failure; N39.0 Urinary tract infection, site not specified; I13.0 Hypertensive heart and chronic kidney disease with heart failure and stage 1 through stage 4 chronic kidney disease, or unspecified chronic kidney disease; E11.51 Type 2 diabetes mellitus with diabetic peripheral angiopathy without gangrene; F03.90 Unspecified dementia, unspecified severity, without behavioral disturbance, psychotic disturbance, mood disturbance, and anxiety; E11.42 Type 2 diabetes mellitus with diabetic polyneuropathy; D64.9 Anemia, unspecified; E78.5 Hyperlipidemia, unspecified; K21.9 Gastro-esophageal reflux disease without esophagitis; I49.3 Ventricular premature depolarization; E11.649 Type 2 diabetes mellitus with hypoglycemia without coma; E11.22 Type 2 diabetes mellitus with diabetic chronic kidney disease; E11.65 Type 2 diabetes mellitus with hyperglycemia; N18.9 Chronic kidney disease, unspecified; E78.00 Pure hypercholesterolemia, unspecified
CPT/HCPCS: 0241U-QW; 36415; 36600; 71045-TC-FY; 76775-TC; 76856-TC; 80048; 80053; 81003; 82272; 82436; 82550; 82570; 82607; 82728; 82746; 82803; 82962; 83010; 83036; 83540; 83550; 83615; 83735; 84133; 84300; 84443; 84484; 85025; 85045; 85610; 85730; 86850; 86900; 86901; 87040; 87086; 87899; 93005; 93010; 94640; 99285-25; G0480; J0131; J1644; J1756